=== PATIENT | male | born 1950 | race Caucasian/White ===

== ENCOUNTER 2016-06-05 17:55 | Emergency (ER) | payer MEDICARE, BC ==
[2016-06-05] MEDS ORDERED: Sodium Chloride 0.9% 10 ML Syringe FLUSH PRN (18:54)
[2016-06-05] MEDS ORDERED: HYDROmorphone 1 MG/ML Syringe IVPUSH ONE ×2 (18:54→20:06)
--- NOTE | 2016-06-05 19:14 | EDM.PDOC ---
ED HPI LOWER BACK PAIN/INJURY - General Chief Complaint: Back Pain or Injury Stated Complaint: BACK PAIN Time Seen by Provider: 06/05/16 18:46 Source of Information: Reports: Patient History Limitations: Reports: No limitations - History of Present Illness INITIAL COMMENTS - FREE TEXT/NARRATIVE: The patient presents with low back pain. He has a history of 4 back surgeries. He fell on Thursday and hurt his back. He has numbness in his legs but that is chronic. There is no more numbness. He took 10mg of hydrocodone before arrival. He has no bowel or bladder problems and he is not numb in the groin area. Timing/Duration: Reports: Day(s): (2) Location: Reports: lower Quality: Reports: Sharp Severity: severe Place of Occurrence: home Improves with: Reports: None Worsens with: Reports: None Context: Reports: fall Associated Symptoms: Reports: Denies symptoms - Related Data Allergies/ADRs: Allergies Allergy/AdvReac Type Severity Reaction Status Date / Time adhesive tape Allergy Other Verified 06/05/16 20:48 latex Allergy Cannot Verified 06/05/16 20:48 Remember Home Meds: Home Meds Aspirin [Di Chewable Aspirin] 162 mg PO DAILY 10/06/13 [History] DULoxetine [Cymbalta] 90 mg PO DAILY 10/06/13 [History] Dutasteride/Tamsulosin HCl [Shabnam 0.5-0.4 MG] 1 each PO DAILY 10/06/13 [History] Eszopiclone [Lunesta] 3 mg PO BEDTIME 10/06/13 [History] Fluticasone/Salmeterol [Advair 500-50] 1 puff INH BID 10/06/13 [History] Furosemide [Lasix] 80 mg PO BID 10/06/13 [History] Gabapentin [Neurontin] 600 mg PO BID 10/06/13 [History] Isosorbide Mononitrate [Imdur] 60 mg PO BEDTIME 10/06/13 [History] Levothyroxine [Levothroid] 300 mcg PO DAILY 10/06/13 [History] Nitroglycerin [Nitrostat] 0.4 mg SL ASDIRECTED PRN 10/06/13 [History] Omeprazole 20 mg PO BID 10/06/13 [History] Potassium Chloride [Klor-Con] 20 meq PO BID 10/06/13 [History] Triamcinolone Acetonide [Nasacort AQ [place]] 2 spray EDA BID PRN 10/06/13 [ History] Vitamin B Complex [B Complex] 1 each PO BID 10/06/13 [History] amLODIPine [Norvasc] 10 mg PO BEDTIME 10/06/13 [History] Losartan [Cozaar] 100 mg PO DAILY 08/24/14 [History] atorvaSTATin [Lipitor] 20 mg PO DAILY 11/17/14 [History] Doxazosin [Cardura] 4 mg PO DAILY 05/16/15 [History] Finasteride [Proscar] 5 mg PO DAILY 05/16/15 [History] Nebivolol HCl [Bystolic] 20 mg PO BEDTIME 05/16/15 [History] Oxybutynin Chloride [Ditropan Xl] 5 mg PO BID 05/16/15 [History] Suvorexant [Belsomra] 20 mg PO BEDTIME PRN 05/16/15 [History] Tamsulosin [Flomax] 0.4 mg PO DAILY 05/16/15 [History] oxyCODONE HCl/Acetaminophen [Percocet 10-325 mg Tablet] 1 each PO Q4HR PRN 05/15 [History] Past Medical History Other HEENT History: hearing loss, R eye surgery, glasses Cardiovascular History: Reports: Angina, CAD, High cholesterol, Hypertension Other Cardiovascular History: diastolic dysfunction, lower extremity edema Respiratory History: Reports: COPD, Sleep apnea Other Respiratory History: L lung nodule, dypsnea on exertion Gastrointestinal History: Reports: Helicobacter pylori Other Genitourinary History: kidney neoplasm, uric acid nephrolithiasis, nephrectomy Musculoskeletal History: Reports: Back pain, chronic, Osteoarthritis Other Musculoskeletal History: spinal stenosis, shoulder apin, myofasical pain, knee pain, laminectomy, stimulator implanted Other Neuro History: essential tremor Endocrine/Metabolic History: Reports: Hypothyroidism, Obesity/BMI 30+ Other Oncologic History: kidney cancer and thyroid cancer - Past Surgical History Other HEENT Surgeries/Procedures: "food gettins stuck in throat" GI Surgical History: Reports: Appendectomy, Colonoscopy, EGD Endocrine Surgical History: Reports: Thyroidectomy Social & Family History - Tobacco Use Smoking Status *Q: Current Every Day Smoker Years of Tobacco use: 55 Packs/Tins Daily: 1 Used Tobacco, but Quit: No Second Hand Smoke Exposure: No - Caffeine Use Caffeine Use: Reports: Coffee, Soda - Alcohol Use Days Per Week of Alcohol Use: 0 - Recreational Drug Use Recreational Drug Use: No Drug Use in Last 12 Months: No - Living Situation & Occupation Living situation: Reports: Occupation: employed ED ROS GENERAL - Review of Systems Review Of Systems: See Below Constitutional: Reports: no symptoms HEENT: Reports: No symptoms Respiratory: Reports: No Symptoms Cardiovascular: Reports: No symptoms Endocrine: Reports: no symptoms GI/Abdominal: Reports: No symptoms : Reports: no symptoms Musculoskeletal: Reports: back pain (Low back pain) ED EXAM,LOWER BACK PAIN/INJURY - Physical Exam Exam: See Below Exam Limited By: No limitations General Appearance: alert, no apparent distress Ears: normal external exam Nose: normal inspection Head: atraumatic, normocephalic Neck: normal inspection Respiratory/Chest: no respiratory distress, lungs clear, normal breath sounds Cardiovascular: regular rate, rhythm, no edema, no murmur GI/Abdominal: soft, non tender, no organomegaly Extremities: other (Moderate pain upon palpation to both sides of his back) Neurological: alert, no motor/sensory deficits, oriented x 3 Course - Vital Signs Last Recorded V/S: Last Vital Signs Temp 98.5 F 06/05/16 18:17 Pulse 53 L 06/05/16 18:17 Resp 18 06/05/16 18:17 BP 136/64 06/05/16 18:17 Pulse Ox 98 06/05/16 18:17 - Orders/Labs/Meds Orders: Active Orders 24 hr Category Date Time Status Peripheral IV Care [RC] . DIRECTED Care 06/05/16 18:54 Active Lumbar Spine 2 or 3V [CR] Stat Exams 06/05/16 18:55 Taken Sodium Chloride 0.9% [Saline Flush] Med 06/05/16 18:54 Active 10 ml FLUSH ASDIRECTED PRN Peripheral IV Insertion Adult [OM.PC] Routine Oth 06/05/16 18:54 Ordered Medication Orders Sodium Chloride (Saline Flush) 10 ml FLUSH ASDIRECTED PRN PRN Reason: Keep Vein Open Last Admin: 06/05/16 19:25 Dose: 10 ml Meds: Medications Generic Name Dose Route Start Last Admin Trade Name Freq PRN Reason Stop Dose Admin Sodium Chloride 10 ml 06/05/16 18:54 06/05/16 19:25 Saline Flush FLUSH 10 ml ASDIRECTED PRN Administration Keep Vein Open Discontinued Medications Generic Name Dose Route Start Last Admin Trade Name Mindi PRN Reason Stop Dose Admin Diazepam 5 mg 06/05/16 18:55 06/05/16 19:19 Valium IVPUSH 06/05/16 18:56 5 mg ONETIME ONE Administration Hydromorphone HCl 1 mg 06/05/16 18:54 06/05/16 19:27 Dilaudid IVPUSH 06/05/16 18:55 1 mg ONETIME ONE Administration Hydromorphone HCl 1 mg 06/05/16 20:06 06/05/16 20:24 Dilaudid IVPUSH 06/05/16 20:07 1 mg ONETIME ONE Administration Ketorolac Tromethamine 30 mg 06/05/16 20:06 06/05/16 20:22 Toradol IVPUSH 06/05/16 20:07 30 mg ONETIME ONE Administration - Re-Assessments/Exams Free Text/Narrative Re-Assessment/Exam: 06/05/16 19:15 I ordered an IV saline lock, dilaudid 1mg IV and valium 5mg IV. 06/05/16 20:54 His x-ray shows moderate to severe degenerative changes. TENS unit and screws and clips from prior surgeries. There is nothing new seen. He had more pain so I ordered more dilaudid and some toradol IV and he is feeling better now and ready to go. Departure - Departure Time of Disposition: 20:55 Disposition: Home, Self-Care 01 Condition: good Clinical Impression: Fall Qualifiers: Encounter type: initial encounter Qualified Code(s): W19.XXXA - Unspecified fall, initial encounter Low back pain Qualifiers: Chronicity: acute Back pain laterality: bilateral Sciatica presence: without sciatica Qualified Code(s): M54.5 - Low back pain Referrals: Candi Mancini MD [Primary Care Provider] - Forms: ED Department Discharge Additional Instructions: Take your medication as prescribed and please return if you are worse. - My Orders Last 24 Hours: My Active Orders 06/05/16 18:54 Peripheral IV Care [RC] . DIRECTED Sodium Chloride 0.9% [Saline Flush] 10 ml FLUSH ASDIRECTED PRN Peripheral IV Insertion Adult [OM.PC] Routine 06/05/16 18:55 Lumbar Spine 2 or 3V [CR] Stat - Assessment/Plan Last 24 Hours: My Active Orders 06/05/16 18:54 Peripheral IV Care [RC] . DIRECTED Sodium Chloride 0.9% [Saline Flush] 10 ml FLUSH ASDIRECTED PRN Peripheral IV Insertion Adult [OM.PC] Routine 06/05/16 18:55 Lumbar Spine 2 or 3V [CR] Stat
[2016-06-05] MEDS ORDERED: Ketorolac 30 MG/ML SDV IVPUSH ONE (20:06)
[2016-06-05 21:11] VITALS: BP 125/85
--- NOTE | 2016-06-06 09:59 | CR ---
Lumbar spine: AP, lateral and cone down lateral views centered to the lumbosacral junction were obtained. Comparison: No previous x-ray, previous CT lumbar spine exam of 09/04/11 is available. Findings: Severe disc space narrowing noted at L1-L2 and L2-L3. Lesser disc space narrowing at L3-L4 and L5-S1. Transpedicle screws are identified at L4-L5 which are stable from prior exam. Vacuum phenomena noted within the L1-L2 and L2-L3 discs. Mild retrolisthesis noted at L1-L2 and L2-L3 compatible with degenerative apophyseal changes. These findings are seen on CT exam. Mild anterior wedging noted of T12, L1 and L2 which appear to be chronic. Scattered endplate osteophytes noted. Previous laminectomy noted within L3 and L4. Mild scoliosis is noted. Electrostimulating device is seen within the thoracic spine. Scattered surgical clips noted within the abdomen. Impression: 1. Degenerative change and scoliosis, previous surgery. 2. Nothing acute seen on lumbar spine study. Findings are stable from previous exam of 09/04/11 with the exception of placement of electrostimulating device. Diagnostic code #2
== END 2016-06-05 21:00 | disposition home or self-care (01) ==
LOC: JD.ED 17:55
DX: M54.5 Low back pain (principal); W19.XXXA Unspecified fall, initial encounter; I25.10 Atherosclerotic heart disease of native coronary artery without angina pectoris; I11.0 Hypertensive heart disease with heart failure; I50.30 Unspecified diastolic (congestive) heart failure; E78.00 Pure hypercholesterolemia, unspecified; J44.9 Chronic obstructive pulmonary disease, unspecified; G47.30 Sleep apnea, unspecified; R91.1 Solitary pulmonary nodule; Z90.5 Acquired absence of kidney; M19.90 Unspecified osteoarthritis, unspecified site; G89.29 Other chronic pain; G25.0 Essential tremor; E03.9 Hypothyroidism, unspecified; E66.9 Obesity, unspecified; Z68.30 Body mass index [BMI] 30.0-30.9, adult; Z85.528 Personal history of other malignant neoplasm of kidney; Z85.850 Personal history of malignant neoplasm of thyroid; F17.200 Nicotine dependence, unspecified, uncomplicated
CPT/HCPCS: 72100; 96374; 96375; 96376; 99283; J1170; J1885; J3360; J7050; 99284

== ENCOUNTER 2016-08-14 03:12 | Emergency (ER) | payer MEDICARE, BC ==
[2016-08-14] MEDS ORDERED: Albuterol/Ipratropium 3.0-0.5 MG/3 ML Neb Soln NEB ONE (03:27)
[2016-08-14] MEDS ORDERED: Albuterol/Ipratropium 3.0-0.5 MG/3 ML Neb Soln ONE (03:29)
--- NOTE | 2016-08-14 03:29 | EDM.PDOC ---
ED HPI GENERAL MEDICAL PROBLEM - General Chief Complaint: Respiratory Problem Stated Complaint: SOB CHILLS Time Seen by Provider: 08/14/16 03:24 Source of Information: Reports: Patient, Family (spouse) History Limitations: Reports: Respiratory Distress - History of Present Illness INITIAL COMMENTS - FREE TEXT/NARRATIVE: 66-year-old male brought to the ED by his . He was so weak and so short of breath that he could not get out of the vehicle on his own or with her health. Nurses aid him out of the vehicle and into a wheelchair. Patient apparently was fine when he went to bed. He uses a CPAP machine at nighttime and oxygen during the day at 2 L per minute for COPD. He awoke with severe rigors chills and increased shortness of breath. On exam he is mildly febrile and definitely experiencing rigors. Does have a productive sounding cough but he did not know apparently when he went to bed. History of coronary disease with a stent placed 3 years ago and remains on Plavix says his .. History of benign prostatic hypertrophy and is on 3 meds for his prostate as well as hypertension. Denies any dysuria urgency or frequency. Not coughing up much sputum at this time. No hemoptysis .No recent infections requiring antibiotic or steroids. Onset: Sudden Onset Date: 08/14/16 Onset Time: 02:30 Duration: Minutes:, Getting Worse Location: Reports: Chest (Acute onset of paroxysmal cough and are associated riders. Associated dyspnea) Quality: Reports: Ache, Other Severity: Severe (Respiratory distress) Improves with: Reports: None, Other (Albuterol treatment at home did not help) Worsens with: Reports: Breathing, Movement Context: Denies: Activity, Exercise, Lifting, Sick Contact, Trauma Associated Symptoms: Reports: Cough, cough w sputum, Fever/Chills, Malaise, Shortness of Breath (Are likely due to COPD. Is on oxygen at 2 L per minute by nasal cannula at all times), Weakness. Denies: No Other Symptoms, Confusion, Chest Pain, Diaphoresis, Headaches (With riders at present time), Loss of Appetite Treatments [employer]: Reports: Other (see below) (None.) - Related Data Allergies Allergy/AdvReac Type Severity Reaction Status Date / Time adhesive tape Allergy Other Verified 08/14/16 03:35 latex Allergy Cannot Verified 08/14/16 03:35 Remember Home Meds: Home Meds Aspirin [Di Chewable Aspirin] 81 mg PO DAILY 10/06/13 [History] DULoxetine [Cymbalta] 90 mg PO DAILY 10/06/13 [History] Dutasteride/Tamsulosin HCl [Shabnam 0.5-0.4 MG] 1 each PO DAILY 10/06/13 [History] Fluticasone/Salmeterol [Advair 500-50] 1 puff INH BID 10/06/13 [History] Furosemide [Lasix] 80 mg PO BID 10/06/13 [History] Gabapentin [Neurontin] 300 mg PO BID 10/06/13 [History] Isosorbide Mononitrate [Imdur] 60 mg PO BEDTIME 10/06/13 [History] Levothyroxine [Levothroid] 300 mcg PO DAILY 10/06/13 [History] Nitroglycerin [Nitrostat] 0.4 mg SL ASDIRECTED PRN 10/06/13 [History] Omeprazole 20 mg PO BID 10/06/13 [History] Potassium Chloride [Klor-Con] 20 meq PO BID 10/06/13 [History] Triamcinolone Acetonide [Nasacort AQ [place]] 2 spray EDA BID PRN 10/06/13 [ History] Vitamin B Complex [B Complex] 1 each PO BEDTIME 10/06/13 [History] amLODIPine [Norvasc] 10 mg PO BEDTIME 10/06/13 [History] Losartan [Cozaar] 100 mg PO DAILY 08/24/14 [History] atorvaSTATin [Lipitor] 20 mg PO DAILY 11/17/14 [History] Doxazosin [Cardura] 4 mg PO DAILY 05/16/15 [History] Finasteride [Proscar] 5 mg PO DAILY 05/16/15 [History] Nebivolol HCl [Bystolic] 20 mg PO DAILY 05/16/15 [History] Oxybutynin Chloride [Ditropan Xl] 5 mg PO BID 05/16/15 [History] Suvorexant [Belsomra] 20 mg PO BEDTIME PRN 05/16/15 [History] Tamsulosin [Flomax] 0.4 mg PO DAILY 05/16/15 [History] oxyCODONE HCl/Acetaminophen [Percocet 10-325 mg Tablet] 1 each PO Q4HR PRN 05/15 [History] Past Medical History Other HEENT History: hearing loss, R eye surgery, glasses Cardiovascular History: Reports: Angina, CAD, Heart Failure, High Cholesterol, Hypertension, Stents (One stent placed about 3 years ago.) Other Cardiovascular History: diastolic dysfunction, lower extremity edema Respiratory History: Reports: COPD (severe.), Pneumonia, Recurrent, Sleep Apnea (uses CPAP at hs.) Other Respiratory History: L lung nodule, dypsnea on exertion Gastrointestinal History: Reports: Helicobacter Pylori Genitourinary History: Reports: BPH, Other (See Below) (renal insufficiency.) Other Genitourinary History: kidney neoplasm, uric acid nephrolithiasis, nephrectomy Musculoskeletal History: Reports: Back Pain, Chronic, Osteoarthritis Other Musculoskeletal History: spinal stenosis, shoulder apin, myofasical pain, knee pain, laminectomy, stimulator implanted Other Neuro History: essential tremor Psychiatric History: Reports: Other (See Below) (chronic severe insomnia.) Endocrine/Metabolic History: Reports: Hypothyroidism, Obesity/BMI 30+ Other Oncologic History: kidney cancer and thyroid cancer - Past Surgical History Other HEENT Surgeries/Procedures: "food gettins stuck in throat" GI Surgical History: Reports: Appendectomy, Colonoscopy, EGD Endocrine Surgical History: Reports: Thyroidectomy Social & Family History - Tobacco Use Smoking Status *Q: Current Every Day Smoker Years of Tobacco use: 55 Packs/Tins Daily: 1 Used Tobacco, but Quit: No Second Hand Smoke Exposure: No - Caffeine Use Caffeine Use: Reports: Coffee, Soda - Alcohol Use Days Per Week of Alcohol Use: 0 - Recreational Drug Use Recreational Drug Use: No Drug Use in Last 12 Months: No - Living Situation & Occupation Living situation: Reports: Occupation: Employed [employer] [facility] [employer] - Review of Systems Review Of Systems: See Below Constitutional: Reports: Fever, Chills, Malaise, Weakness, Fatigue, Diaphoresis HEENT: Reports: Glasses. Denies: Sinus Problem Respiratory: Reports: Shortness of Breath, Wheezing, Cough, Sputum. Denies: Pleuritic Chest Pain, Hemoptysis Cardiovascular: Reports: Blood Pressure Problem, Dyspnea on Exertion ( Chronically.). Denies: Palpitations Endocrine: Reports: Fatigue GI/Abdominal: Reports: Constipation (Occasional problems with constipation) : Reports: Frequency, Other (Nocturia usually x2) Musculoskeletal: Reports: Back Pain, Joint Pain (Knees and hips at times) Skin: Reports: No Symptoms Neurological: Reports: No Symptoms Psychiatric: Reports: No Symptoms Hematologic/Lymphatic: Reports: No Symptoms Immunologic: Reports: No Symptoms ED EXAM, GENERAL - Physical Exam Exam: See Below Exam Limited By: Respiratory Distress (Acutely ill and febrile on exam. Marked respiratory distress. Sats only 77% on room air.) General Appearance: Moderate Distress, Other (Warm to palpation) Eye Exam: Bilateral Eye: Normal Inspection Ears: Normal TMs Throat/Mouth: Normal Inspection, Normal Oropharynx, Normal Voice. No: Normal Teeth Head: Atraumatic, Normocephalic Neck: Normal Inspection, Supple, Non-Tender. No: Full Range of Motion, Carotid Bruit, Lymphadenopathy (L), Lymphadenopathy (R) Respiratory/Chest: Respiratory Distress (Marked respiratory distress.), Decreased Breath Sounds, Rales, Rhonchi (To the bases bilaterally.), Wheezing ( The right lung field anteriorly and posteriorly intermittent wheezing bilaterally. ), Accessory Muscle Use, Prolonged Expiration. No: Stridor ( Questionable overall base of the right lung.), Pleural Rub, Retractions (Mild.) , Splinting Cardiovascular: No Gallop, No Murmur, No Rub, Tachycardia. No: Normal Peripheral Pulses, JVD Peripheral Pulses: 1+: Posterior Tibial (L), Posterior Tibial (R), Dorsalis Pedis (L), Dorsalis Pedis (R) GI/Abdominal: Normal Bowel Sounds, Soft, Non-Tender, No Organomegaly Back Exam: Normal Inspection, Full Range of Motion. No: CVA Tenderness (L), CVA Tenderness (R) Extremities: Pedal Edema (1+ pitting edema both lower extremities.) Neurological: Alert, Oriented, CN II-XII Intact, Normal Cognition. No: Normal Gait (Cannot walk. Require help of the vehicle to get into the D.) Psychiatric: Flat Affect Skin Exam: Normal Color, Other (Warm to palpation.) EKG INTERPRETATION EKG Date: 08/14/16 Time: 03:40 Rhythm: a-fib (with controlled rate of 66-90/min.) Rate (beats/min): 75 [place]: normal P-wave: absent QRS: other (Q-wave in lead 3 a near Q-wave in aVF. Possible old inferior myocardial infarction. Decreased voltage throughout the limb leads.) QT: prolonged (At 435) Course - Vital Signs Last Recorded V/S: Last Vital Signs Temp 37.3 C 08/14/16 04:02 Pulse 71 08/14/16 03:15 Resp 30 H 08/14/16 03:15 BP 157/129 H 08/14/16 03:15 Pulse Ox 94 L 08/14/16 03:32 - Orders/Labs/Meds Orders: Active Orders 24 hr Category Date Time Status EKG Documentation Completion [RC] STAT Care 08/14/16 03:24 Active Nascimento Catheter Insertion [Insert Urinary Catheter] [OM. Care 08/14/16 04:15 Ordered PC] Q24H Oxygen Therapy [RC] ASDIRECTED Care 08/14/16 03:25 Active Peripheral IV Care [RC] . DIRECTED Care 08/14/16 03:47 Active RT Aerosol Therapy [RC] ASDIRECTED Care 08/14/16 03:28 Active Urinary Catheter Assessment [RC] ASDIRECTED Care 08/14/16 04:14 Active Chest 1V Frontal [CR] Stat Exams 08/14/16 03:24 Taken CULTURE BLOOD [BC] Stat Lab 08/14/16 03:50 Received CULTURE BLOOD [BC] Stat Lab 08/14/16 04:04 Received CULTURE SPUTUM + SMEAR [RM] Stat Lab 08/14/16 03:55 Results Norepinephrine [Levophed] 4 mg Med 08/14/16 05:30 Active Dextrose 5% in Water 246 ml IV TITRATE Sodium Chloride 0.9% [Saline Flush] Med 08/14/16 03:46 Active 10 ml FLUSH ASDIRECTED PRN BiPAP [RESPCARE] Urgent Oth 08/14/16 04:20 Active Blood Culture x2 Reflex Set [OM.PC] Stat Oth 08/14/16 03:26 Ordered Peripheral IV Insertion Adult [OM.PC] Stat Oth 08/14/16 03:47 Ordered Medication Orders Norepinephrine Bitartrate 4 mg (/ Dextrose/Water) 250 mls @ 7.5 mls/hr IV TITRATE BLAYNE; 2 MCG/MIN PRN Reason: Protocol Last Titration: 08/14/16 06:16 Dose: 8 mcg/min, 30 mls/hr Titration: 08/14/16 06:13 Dose: 6 mcg/min, 22.5 mls/hr Admin: 08/14/16 06:03 Dose: 3 mcg/min, 11.25 mls/hr Sodium Chloride (Saline Flush) 10 ml FLUSH ASDIRECTED PRN PRN Reason: Keep Vein Open Last Admin: 08/14/16 04:28 Dose: 10 ml Admin: 08/14/16 04:02 Dose: 10 ml Labs: Laboratory Tests 08/14/16 08/14/16 08/14/16 Range/Units 03:25 03:25 03:25 WBC 15.02 H (4.23-9.07) K/mm3 RBC 4.91 (4.63-6.08) M/mm3 Hgb 14.7 (13.7-17.5) gm/L Hct 43.4 (40.1-51.0) % MCV 88.4 (79.0-92.2) fl MCH 29.9 (25.7-32.2) pg MCHC 33.9 (32.2-35.5) g/dl RDW Std Deviation 43.8 (35.1-43.9) fL Plt Count 189 (163-337) K/mm3 MPV 10.2 (9.4-12.3) fl Neutrophils % (Manual) 87 H (40-60) % Band Neutrophils % 2 (0-10) % Lymphocytes % (Manual) 11 L (20-40) % Atypical Lymphs % 0 % Monocytes % (Manual) 0 L (2-10) % Eosinophils % (Manual) 0 L (0.8-7.0) % Basophils % (Manual) 0 L (0.2-1.2) Platelet Estimate Adequate RBC Morph Comment Normal PT 10.7 (8.0-13.0) SECONDS INR 0.98 Puncture Site ABG pH (7.35-7.45) ABG pCO2 (35.0-45.0) mmHg ABG pO2 (80.0-100.0) mmHg ABG HCO3 (22.0-26.0) meq/L ABG O2 Saturation (96.0-97.0) % ABG Base Excess (-2-2.0) Maikel Test A-a Gradient mmHg O2 Delivery Device Oxygen Flow Rate FiO2 (21.00-100.00) % Sodium 140 (136-145) mEq/L Potassium 3.8 (3.5-5.1) mEq/L Chloride 104 (98-107) mEq/L Carbon Dioxide 26 (21-32) mEq/L Anion Gap 13.8 (5-15) BUN 10 (7-18) mg/dL Creatinine 1.4 H (0.7-1.3) mg/dL Est Cr Clr Drug Dosing 59.53 mL/min Estimated GFR (MDRD) 51 (>60) mL/min BUN/Creatinine Ratio 7.1 L (14-18) Glucose 115 (80-115) mg/dL Lactic Acid (0.4-2.0) mmol/L Calcium 8.9 (8.5-10.1) mg/dL Magnesium 1.2 L (1.8-2.4) mg/dl Total Bilirubin 0.5 (0.2-1.0) mg/dL AST 14 L (15-37) U/L ALT 18 (16-63) U/L Alkaline Phosphatase 107 (46-116) U/L CK-MB (CK-2) 1.5 (0-3.6) ng/ml Troponin I < 0.017 (0.00-0.056) ng/mL C-Reactive Protein 1.0 (<1.0) mg/dL B-Natriuretic Peptide (0-100) pg/mL Total Protein 6.4 (6.4-8.2) g/dl Albumin 2.8 L (3.4-5.0) g/dl Globulin 3.6 gm/dL Albumin/Globulin Ratio 0.8 L (1-2) Urine Color (Yellow) Urine Appearance (Clear) Urine pH (5.0-8.0) Ur Specific [place] (1.005-1.030) Urine Protein (Negative) Urine Glucose (UA) (Negative) Urine Ketones (Negative) Urine Occult Blood (Negative) Urine Nitrite (Negative) Urine Bilirubin (Negative) Urine Urobilinogen (0.2-1.0) Ur Leukocyte Esterase (Negative) Urine RBC (0-5) /hpf Urine WBC (0-5) /hpf Ur Epithelial Cells Ur Squamous Epith Cells (0-5) /hpf Urine Bacteria (FEW) /hpf Hyaline Casts (0-5) /lpf Urine Mucus (FEW) /hpf 08/14/16 08/14/16 08/14/16 Range/Units 03:25 03:45 03:50 WBC (4.23-9.07) K/mm3 RBC (4.63-6.08) M/mm3 Hgb (13.7-17.5) gm/L Hct (40.1-51.0) % MCV (79.0-92.2) fl MCH (25.7-32.2) pg MCHC (32.2-35.5) g/dl RDW Std Deviation (35.1-43.9) fL Plt Count (163-337) K/mm3 MPV (9.4-12.3) fl Neutrophils % (Manual) (40-60) % Band Neutrophils % (0-10) % Lymphocytes % (Manual) (20-40) % Atypical Lymphs % % Monocytes % (Manual) (2-10) % Eosinophils % (Manual) (0.8-7.0) % Basophils % (Manual) (0.2-1.2) Platelet Estimate RBC Morph Comment PT (8.0-13.0) SECONDS INR Puncture Site Lt radial ABG pH 7.36 (7.35-7.45) ABG pCO2 40.5 (35.0-45.0) mmHg ABG pO2 53.0 L (80.0-100.0) mmHg ABG HCO3 22.4 (22.0-26.0) meq/L ABG O2 Saturation 88.7 L (96.0-97.0) % ABG Base Excess -2.3 L (-2-2.0) Maikel Test Positive A-a Gradient 249 mmHg O2 Delivery Device Venti mask Oxygen Flow Rate 14.0 FiO2 55.00 (21.00-100.00) % Sodium (136-145) mEq/L Potassium (3.5-5.1) mEq/L Chloride (98-107) mEq/L Carbon Dioxide (21-32) mEq/L Anion Gap (5-15) BUN (7-18) mg/dL Creatinine (0.7-1.3) mg/dL Est Cr Clr Drug Dosing mL/min Estimated GFR (MDRD) (>60) mL/min BUN/Creatinine Ratio (14-18) Glucose (80-115) mg/dL Lactic Acid 3.3 H (0.4-2.0) mmol/L Calcium (8.5-10.1) mg/dL Magnesium (1.8-2.4) mg/dl Total Bilirubin (0.2-1.0) mg/dL AST (15-37) U/L ALT (16-63) U/L Alkaline Phosphatase (46-116) U/L CK-MB (CK-2) (0-3.6) ng/ml Troponin I (0.00-0.056) ng/mL C-Reactive Protein (<1.0) mg/dL B-Natriuretic Peptide 299 H (0-100) pg/mL Total Protein (6.4-8.2) g/dl Albumin (3.4-5.0) g/dl Globulin gm/dL Albumin/Globulin Ratio (1-2) Urine Color (Yellow) Urine Appearance (Clear) Urine pH (5.0-8.0) Ur Specific [place] (1.005-1.030) Urine Protein (Negative) Urine Glucose (UA) (Negative) Urine Ketones (Negative) Urine Occult Blood (Negative) Urine Nitrite (Negative) Urine Bilirubin (Negative) Urine Urobilinogen (0.2-1.0) Ur Leukocyte Esterase (Negative) Urine RBC (0-5) /hpf Urine WBC (0-5) /hpf Ur Epithelial Cells Ur Squamous Epith Cells (0-5) /hpf Urine Bacteria (FEW) /hpf Hyaline Casts (0-5) /lpf Urine Mucus (FEW) /hpf 08/14/16 08/14/16 Range/Units 04:15 04:56 WBC (4.23-9.07) K/mm3 RBC (4.63-6.08) M/mm3 Hgb (13.7-17.5) gm/L Hct (40.1-51.0) % MCV (79.0-92.2) fl MCH (25.7-32.2) pg MCHC (32.2-35.5) g/dl RDW Std Deviation (35.1-43.9) fL Plt Count (163-337) K/mm3 MPV (9.4-12.3) fl Neutrophils % (Manual) (40-60) % Band Neutrophils % (0-10) % Lymphocytes % (Manual) (20-40) % Atypical Lymphs % % Monocytes % (Manual) (2-10) % Eosinophils % (Manual) (0.8-7.0) % Basophils % (Manual) (0.2-1.2) Platelet Estimate RBC Morph Comment PT (8.0-13.0) SECONDS INR Puncture Site Lt radial ABG pH 7.39 (7.35-7.45) ABG pCO2 39.4 (35.0-45.0) mmHg ABG pO2 57.0 L (80.0-100.0) mmHg ABG HCO3 23.1 (22.0-26.0) meq/L ABG O2 Saturation 92.5 L (96.0-97.0) % ABG Base Excess -1.2 (-2-2.0) Maikel Test A-a Gradient 341 mmHg O2 Delivery Device Bipap 12/7 Oxygen Flow Rate FiO2 50.00 (21.00-100.00) % Sodium (136-145) mEq/L Potassium (3.5-5.1) mEq/L Chloride (98-107) mEq/L Carbon Dioxide (21-32) mEq/L Anion Gap (5-15) BUN (7-18) mg/dL Creatinine (0.7-1.3) mg/dL Est Cr Clr Drug Dosing mL/min Estimated GFR (MDRD) (>60) mL/min BUN/Creatinine Ratio (14-18) Glucose (80-115) mg/dL Lactic Acid (0.4-2.0) mmol/L Calcium (8.5-10.1) mg/dL Magnesium (1.8-2.4) mg/dl Total Bilirubin (0.2-1.0) mg/dL AST (15-37) U/L ALT (16-63) U/L Alkaline Phosphatase (46-116) U/L CK-MB (CK-2) (0-3.6) ng/ml Troponin I (0.00-0.056) ng/mL C-Reactive Protein (<1.0) mg/dL B-Natriuretic Peptide (0-100) pg/mL Total Protein (6.4-8.2) g/dl Albumin (3.4-5.0) g/dl Globulin gm/dL Albumin/Globulin Ratio (1-2) Urine Color Yellow (Yellow) Urine Appearance Clear (Clear) Urine pH 5.5 (5.0-8.0) Ur Specific [place] 1.020 (1.005-1.030) Urine Protein Negative (Negative) Urine Glucose (UA) Negative (Negative) Urine Ketones Negative (Negative) Urine Occult Blood Negative (Negative) Urine Nitrite Negative (Negative) Urine Bilirubin Negative (Negative) Urine Urobilinogen 0.2 (0.2-1.0) Ur Leukocyte Esterase Negative (Negative) Urine RBC 0-5 (0-5) /hpf Urine WBC 0-5 (0-5) /hpf Ur Epithelial Cells Not Reportable Ur Squamous Epith Cells 0-5 (0-5) /hpf Urine Bacteria Moderate H (FEW) /hpf Hyaline Casts 5-10 H (0-5) /lpf Urine Mucus Few (FEW) /hpf Meds: Medications Generic Name Dose Route Start Last Admin Trade Name Freq PRN Reason Stop Dose Admin Norepinephrine Bitartrate 4 mg 250 mls @ 7.5 mls/hr 08/14/16 05:30 08/14/16 06:16 / Dextrose/Water IV 8 mcg/min TITRATE BLAYNE 30 mls/hr Protocol Titration 2 MCG/MIN Sodium Chloride 10 ml 08/14/16 03:46 08/14/16 04:28 Saline Flush FLUSH 10 ml ASDIRECTED PRN Administration Keep Vein Open Discontinued Medications Generic Name Dose Route Start Last Admin Trade Name Freq PRN Reason Stop Dose Admin Acetaminophen 975 mg 08/14/16 03:34 08/14/16 04:02 Tylenol PO 08/14/16 03:35 975 mg NOW ONE Administration Albuterol/Ipratropium 3 ml 08/14/16 03:27 08/14/16 03:32 Duoneb 3.0-0.5 Mg/3 Ml NEB 08/14/16 03:28 Not Given ONETIME ONE Albuterol/Ipratropium Confirm 08/14/16 03:29 08/14/16 03:32 Duoneb 3.0-0.5 Mg/3 Ml Administered 08/14/16 03:30 3 ml Dose Administration 3 ml .ROUTE .STK-MED ONE Etomidate 35 mg 08/14/16 05:29 Amidate IVPUSH 08/14/16 05:30 ONETIME ONE Furosemide 60 mg 08/14/16 03:46 08/14/16 03:49 Lasix IVPUSH 08/14/16 03:47 60 mg NOW ONE Administration Furosemide Confirm 08/14/16 03:48 08/14/16 04:05 Lasix Administered 08/14/16 03:49 Not Given Dose 80 mg .ROUTE .STK-MED ONE Furosemide 60 mg 08/14/16 03:45 08/14/16 03:50 Lasix IVPUSH 08/14/16 03:46 60 mg NOW ONE Administration Levofloxacin/Dextrose 750 mg/ 150 mls @ 100 mls/hr 08/14/16 03:35 08/14/16 04 :01 Premix IV 08/14/16 05:04 100 mls/hr ONETIME ONE Administration Piperacillin Sod/Tazobactam 100 mls @ 200 mls/hr 08/14/16 05:27 08/14/16 06: 21 Sod 4.5 gm/ Sodium Chloride IV 08/14/16 05:56 200 mls/hr ONETIME ONE Administration Propofol Confirm 08/14/16 05:43 Diprivan 100 Ml Administered 08/14/16 05:44 Dose 100 mls @ as directed .ROUTE .STK-MED ONE Lidocaine HCl 10 ml 08/14/16 04:14 08/14/16 04:39 Xylocaine 2% Jelly MUCMEM 08/14/16 04:15 Not Given ONETIME ONE Lidocaine HCl Confirm 08/14/16 05:21 Xylocaine 1% Administered 08/14/16 05:22 Dose 50 ml .ROUTE .STK-MED ONE Lidocaine HCl 150 ml 08/14/16 05:28 Xylocaine 1% INJECT 08/14/16 05:29 ONETIME ONE Metoclopramide HCl 10 mg 08/14/16 05:30 Reglan IVPUSH 08/14/16 05:31 ONETIME ONE Succinylcholine Chloride 150 mg 08/14/16 05:30 Quelicin IV 08/14/16 05:31 ONETIME ONE - Radiology Interpretation Free Text/Narrative:: 66-year-old male with known COPD presents to the ED with sudden onset of rigors chills and obvious dyspnea. He is fine apparently when he went to bed. Symptoms started about 0-30 hours this morning. He used albuterol via his home nebulizer with no improvement. Note he wears a CPAP machine at bedtime. He uses oxygen at 2 L per minute throughout the day. No recent changes in medications. No recent cold or cough symptoms. No recent antibiotic usage. Exam reveals rhonchi throughout the right lung andrade. He is febrile on exam. He is shaking at this time due to rigors benign abdominal examination. History of coronary disease with one stent placement 3 years ago. Marked respiratory distress. O2 sat 77% on room air. Plan Ventimask at 50%. May well require BiPAP or CPAP. DuoNeb treatment. ABGs to be done. Routine blood work to include blood cultures x2 and cardiac assessment. Chest x-ray portable. Will be given Tylenol 975 mg orally for fever relief we'll start antibiotic Levaquin 750 mg IV Unasyn his blood cultures x2 are collected. - Re-Assessments/Exams Free Text/Narrative Re-Assessment/Exam: 08/14/16 03:50 portable chest x-ray reveals bilateral infiltrates in the lower 40% of lung andrade with diffuse vascular congestion. Suspect fluid but cannot rule out pneumonia . Currently on Venturi mask at 55% or 14 L per minute. Sats are up to 92%. Awaiting blood gas report. With his chest x-ray looks and the amount of energy he is using to breathe he is likely headed for intubation. This was discussed with his him and his and they are okay with proceeding in this regard if needed. We'll give him Lasix 60 mg IV. 08/14/16 03:55 ECG reveals atrial fibrillation with a controlled rate of 66-19 per minute. Apparently he has no history of this arrhythmia. Review of his current med list does not show that he is on Plavix or any anticoagulant. A pressure is 109 on 52. Atrial fibrillation appears to be a new diagnosis. Will require some form of anticoagulation. Nascimento catheter will be placed with urometer. 08/14/16 04:01 initial white count is 15.02 differential pending hemoglobin is 14.7 hematocrit is 43.4. Coags are normal. ABG showed pH of 7.36 PCO2 of 40.5 I not retaining. PO2 was low at 53 sats 88.7% on 55% FiO2 on Venturi mask. O2 sats are currently between 90 and 92%. Will see if he plays out or improves with the Lasix. He may well tolerate CPAP since he uses it at home. 08/14/16 04:18 Chemistry shows sodium of 140 potassium 3.8 chloride 104 bicarbonate 26. Anion gap 13.8. Creatinine 1.4. EGFR is 51. Magnesium low at 1.2. Troponin is less than 0.017. CRP is only 1.0 BNP is 299. Differential reveals 87% neutrophils and 2% band cells. Condition continues to deteriorate. His blood pressure is 80/46 O2 sats are 86%. We'll place him on BiPAP starting with 12/7. If his blood pressure falls any further he will also require vasopressor support. Likely going to need intubation. Current weight is 109 kg. second IV to be started. 08/14/16 04:45 Tolerating BiPAP at settings of 12/7 mmHg. Sats are currently 92% . BP improved to 96/52. Mean arterial pressure 66. Repeat blood gases are to be done at 0500 hours. 08/14/16 05:00 his O2 sats continued to fall into the upper 80s ED T8-T9 and therefore FiO2 was increased to 70%. Current O2 sats are 92%. BP is 93/ 56 08/14/16 05:18 second set of blood gases reveal a pH of 7.39 PCO2 is 39.4 essentially unchanged PO2 is only 57. Patient has continued to get weaker. More confused BP is now 90 systolic. He is going to need Levophed vasopressor support. I therefore going to go ahead with intubation with plans to send him to [facility] for acute care. Initial lactic acid is elevated at 3.3. 08/14/16 05:30 intubated on first attempt with a #8 Vietnamese ET tube at 24 cm record her blood. Tube secured. Chest x-ray confirms adequate position. CO2 monitor confirms placed through the right naris and x-ray is difficult to ascertain where the end of the tube is. Appears to be in the midline and is felt to be in the stomach although it possibly could occur lip the gastroesophageal junction. He was intubated with the aid of lidocaine 150 mg etomidate 35 mg and succinylcholine 150 mg. Subsequent to paralyze with vecuronium 11 mg IV. He is currently on propofol drip at 75 mg per hour. We will fed drip currently running at 4 mcg per minute. 08/14/16 06:[address] Clark geek squad manager at [facility] in [facility] [phone]. He has agreed to accept this patient in transfer port. Patient be sent to that institution for air ambulance or helicopter service.he will be a direct admit to the intensive care unit. .Nasogastric tube was not felt to be in the appropriate position on chest x-ray it was therefore removed. Patient does not have that much abdominal distention or tympany to percussion. Blood pressure required increased dose of levophed up to 8 mcg per minutes. 08/14/16 06:41 blood pressure at the time of discharge was 128/68. He remains on 8 mcg per minute of Levophed. The paramedics will titrate this medication as needed. Departure - Departure Time of Disposition: 06:42 Disposition: DC/Tfer to Acute Hospital 02 Condition: critical Clinical Impression: Sepsis associated hypotension, Hypomagnesemia Bilateral pneumonia Qualifiers: Pneumonia type: due to unspecified organism Lung location: lower lobe of lung Qualified Code(s): J18.9 - Pneumonia, unspecified organism COPD (chronic obstructive pulmonary disease) with emphysema Qualifiers: Emphysema type: other Qualified Code(s): J43.8 - Other emphysema Congestive heart failure Qualifiers: Congestive heart failure type: diastolic Congestive heart failure chronicity: acute on chronic Qualified Code(s): I50.33 - Acute on chronic diastolic ( congestive) heart failure - Discharge Information Forms: ED Department Discharge Additional Instructions: Patient is usually cared for by Dr. Bach to the [place] system. Patient request transfer her to [facility] in [facility]. Patient has had previous surgery there and has records. He'll be transported by helicopter service to [facility] due to the acuity of his illness. Required intubation due to continued respiratory failure and failure to improve on 45 minutes of BiPAP. Required Levophed for blood pressure support partly due to his illness i.e. sepsis and partly due to effects of medication propofol and vecuronium. Dr. Clark has accepted care at the intensive care unit at [facility] - My Orders Last 24 Hours: My Active Orders 08/14/16 03:24 EKG Documentation Completion [RC] STAT Chest 1V Frontal [CR] Stat 08/14/16 03:25 Oxygen Therapy [RC] ASDIRECTED 08/14/16 03:26 Blood Culture x2 Reflex Set [OM.PC] Stat 08/14/16 03:28 RT Aerosol Therapy [RC] ASDIRECTED 08/14/16 03:46 Sodium Chloride 0.9% [Saline Flush] 10 ml FLUSH ASDIRECTED PRN 08/14/16 03:47 Peripheral IV Care [RC] . DIRECTED Peripheral IV Insertion Adult [OM.PC] Stat 08/14/16 03:50 CULTURE BLOOD [BC] Stat 08/14/16 03:55 CULTURE SPUTUM + SMEAR [RM] Stat 08/14/16 04:04 CULTURE BLOOD [BC] Stat 08/14/16 04:14 Urinary Catheter Assessment [RC] ASDIRECTED 08/14/16 04:15 Nascimento Catheter Insertion [Insert Urinary Catheter] [OM.PC] Q24H 08/14/16 04:20 BiPAP [RESPCARE] Urgent 08/14/16 05:30 Norepinephrine [Levophed] 4 mg Dextrose 5% in Water 246 ml IV TITRATE - Assessment/Plan Last 24 Hours: My Active Orders 08/14/16 03:24 EKG Documentation Completion [RC] STAT Chest 1V Frontal [CR] Stat 08/14/16 03:25 Oxygen Therapy [RC] ASDIRECTED 08/14/16 03:26 Blood Culture x2 Reflex Set [OM.PC] Stat 08/14/16 03:28 RT Aerosol Therapy [RC] ASDIRECTED 08/14/16 03:46 Sodium Chloride 0.9% [Saline Flush] 10 ml FLUSH ASDIRECTED PRN 08/14/16 03:47 Peripheral IV Care [RC] . DIRECTED Peripheral IV Insertion Adult [OM.PC] Stat 08/14/16 03:50 CULTURE BLOOD [BC] Stat 08/14/16 03:55 CULTURE SPUTUM + SMEAR [RM] Stat 08/14/16 04:04 CULTURE BLOOD [BC] Stat 08/14/16 04:14 Urinary Catheter Assessment [RC] ASDIRECTED 08/14/16 04:15 Nascimento Catheter Insertion [Insert Urinary Catheter] [OM.PC] Q24H 08/14/16 04:20 BiPAP [RESPCARE] Urgent 08/14/16 05:30 Norepinephrine [Levophed] 4 mg Dextrose 5% in Water 246 ml IV TITRATE
[2016-08-14 03:30] VITALS: BP 157/129
[2016-08-14] MEDS ORDERED: Acetaminophen 325 MG Tab PO ONE (03:34)
[2016-08-14] MEDS ORDERED: Levofloxacin/Dextrose 5%-Water 750 MG in Premix Bag 1 BAG IV ONE (03:35)
[2016-08-14] MEDS ORDERED: Furosemide 40 MG/4 ML VIAL IVPUSH ONE (03:46)
[2016-08-14] MEDS ORDERED: Furosemide 40 MG/4 ML VIAL ONE (03:48)
[2016-08-14] MEDS: Furosemide 40 MG/4 ML VIAL IVPUSH ONE ×2 (03:50→07:27)
[2016-08-14] MEDS: Sodium Chloride 0.9% 10 ML Syringe FLUSH PRN ×2 (04:02→04:28)
[2016-08-14] MEDS ORDERED: Lidocaine 2% Jelly 10 ML Urojet MUCMEM ONE (04:14)
[2016-08-14] MEDS ORDERED: Piperacillin/Tazobactam 4.5 GM in Sodium Chloride 0.9% 100 ML IV ONE (05:27)
[2016-08-14] MEDS ORDERED: Lidocaine 1% 10 ML MDV INJECT ONE (05:28)
[2016-08-14] MEDS ORDERED: Etomidate 2 MG/ML 20 ML SDV IVPUSH ONE ×2 (05:29→22:22)
[2016-08-14] MEDS ORDERED: Sodium Chloride 0.9% 1,000 ML IV SCH (05:30)
[2016-08-14] MEDS ORDERED: Norepinephrine 4 MG in Dextrose 5% in Water 246 ML IV SCH ×2 (05:30)
[2016-08-14] MEDS ORDERED: Succinylcholine 200 MG/10 ML MDV IV ONE (05:30)
[2016-08-14] MEDS ORDERED: Metoclopramide 10 MG/2 ML SDV IVPUSH ONE (05:30)
[2016-08-14] MEDS ORDERED: Lidocaine 1% 50 ML MDV INJECT ONE (05:37)
[2016-08-14] MEDS ORDERED: Midazolam 1 MG/ML 5 ML SDV IVPUSH ONE (05:48)
[2016-08-14] MEDS: Lidocaine 1% 50 ML MDV ONE ×2 (06:51→07:29)
[2016-08-14] MEDS ORDERED: Midazolam 1 MG/ML 2 ML SDV IVPUSH ONE (06:53)
--- NOTE | 2016-08-14 07:02 | CR ---
Chest: Portable view of the chest was obtained. Comparison: Previous chest x-ray of 03/15/12. Consolidation identified within both lung bases, worse on the right side. Central lung markings are also increased within both upper lungs. Heart is enlarged. Bony structures are grossly intact. Impression: 1. Consolidation within both lung bases. Findings suspicious for areas of pneumonia. 2. Cardiomegaly and mild pulmonary vascular congestion possibly due to superimposed mild CHF. Diagnostic code #3
--- NOTE | 2016-08-14 07:52 | CR ---
Chest: Portable view of the chest was obtained. Comparison: Previous chest x-ray of 08/14/16. Continuing increased density within both lung bases. Findings appear less dense than on prior study presumably due to differences in positioning. Heart is enlarged. Upper lobe pulmonary vascular redistribution remains. Stimulating wires are seen within the thoracic spine. Surgical clips noted within the left upper abdomen. Endotracheal tube is seen with tip lying at the level of the lower clavicles. Impression: 1. Tip of endotracheal tube at the lower level of the clavicles. 2. Continuing increased density within both lung bases as well as mild pulmonary vascular congestion. Diagnostic code #3
[2016-08-14] MEDS ORDERED: Midazolam 5 MG/ML 5 ML MDV ONE (22:22)
[2016-08-14] MEDS ORDERED: Water For Injection, Sterile 10 ML SDV ONE (22:22)
[2016-08-14] MEDS ORDERED: Succinylcholine/Normal Saline 100 MG/5 ML Syringe ONE (22:22)
== END 2016-08-14 06:35 ==
LOC: JD.ED 03:12
DX: A41.9 Sepsis, unspecified organism (principal); E83.42 Hypomagnesemia; I11.0 Hypertensive heart disease with heart failure; I50.33 Acute on chronic diastolic (congestive) heart failure; J18.9 Pneumonia, unspecified organism; J43.8 Other emphysema; I25.10 Atherosclerotic heart disease of native coronary artery without angina pectoris; E03.9 Hypothyroidism, unspecified; G47.30 Sleep apnea, unspecified; E66.9 Obesity, unspecified; Z98.890 Other specified postprocedural states; Z90.49 Acquired absence of other specified parts of digestive tract; Z91.040 Latex allergy status; Z85.850 Personal history of malignant neoplasm of thyroid; Z85.528 Personal history of other malignant neoplasm of kidney; Z90.5 Acquired absence of kidney; F17.210 Nicotine dependence, cigarettes, uncomplicated; Z79.82 Long term (current) use of aspirin; Z79.899 Other long term (current) drug therapy
CPT/HCPCS: 31500; 36415; 36600; 51702; 71010; 80053; 81001; 82553; 82803; 83605; 83735; 83880; 84484; 85025; 85610; 86140; 87040; 87070; 87205; 87804; 93005; 94660; 94664; 99291; 99292; A9270; J0330; J1940; J1956; J2250; J2543; J7030; J7040; J7050; J7060; J3490

== ENCOUNTER 2016-10-03 20:56 | Inpatient (IN) | payer MEDICARE, BC ==
[2016-10-03] MEDS ORDERED: Meperidine PF 50 MG/ML Syringe IVPUSH ONE (21:32)
[2016-10-03] MEDS ORDERED: Sodium Chloride 0.9% 100 ML IV SCH (22:45)
[2016-10-03] MEDS ORDERED: Sodium Chloride 0.9% 10 ML Syringe FLUSH ONE (22:45)
[2016-10-03] MEDS ORDERED: Iopamidol 755 Mg/ML 100 ML Bottle IVPUSH ONE ×2 (22:45→23:25)
[2016-10-03] MEDS ORDERED: Diatrizoate Meglumine/Diatrizoate Sodium 37% 120 ML Bottle PO ONE (22:46)
--- NOTE | 2016-10-03 22:59 | EDM.PDOC ---
ED HPI GENERAL MEDICAL PROBLEM - General Chief Complaint: Flank Pain Stated Complaint: [facility] Time Seen by Provider: 10/03/16 21:09 Source of Information: Reports: Patient, Family (, son), Intermediate Records, RN Notes Reviewed History Limitations: Reports: Physical Impairment (Shivering, hard of hearing) - History of Present Illness INITIAL COMMENTS - FREE TEXT/NARRATIVE: The patient and his family states that he developed a fever up to 100.5, chills , right flank pain, and increased urinary frequency around 18:00 tonight. He complains of some shortness of breath. The patient states that he has had similar symptoms in the past, when he had kidney stones. Here in the ED, the patient is noted to have a temperature of 99.8. His oxygen saturation is 8689% on room air. The patient was seen in this ED 08/14/2016, where he was intubated for respiratory failure and transferred to [facility]. The patient's states that the patient was on a ventilator for 9 days, and was eventually discharged to [facility] on 09/10/2016 for rehabilitation. The patient is not currently on antibiotics. The patient's PCP is Dr. Candi Mancini. Right Flank Pain Score (Numeric/FACES): 10 - Related Data Allergies Allergy/AdvReac Type Severity Reaction Status Date / Time adhesive tape Allergy Other Verified 10/03/16 21:01 latex Allergy Cannot Verified 10/03/16 21:01 Remember Home Meds: Home Meds Aspirin [Di Chewable Aspirin] 81 mg PO DAILY 10/06/13 [History] DULoxetine [Cymbalta] 90 mg PO DAILY 10/06/13 [History] Fluticasone/Salmeterol [Advair 500-50] 1 puff INH BID 10/06/13 [History] Gabapentin [Neurontin] 300 mg PO TID 10/06/13 [History] Levothyroxine [Levothroid] 175 mcg PO DAILY 10/06/13 [History] Nitroglycerin [Nitrostat] 0.4 mg SL ASDIRECTED PRN 10/06/13 [History] Omeprazole 20 mg PO BID 10/06/13 [History] Potassium Chloride [Klor-Con] 20 meq PO TID 10/06/13 [History] atorvaSTATin [Lipitor] 20 mg PO DAILY 11/17/14 [History] Finasteride [Proscar] 5 mg PO DAILY 05/16/15 [History] Oxybutynin Chloride [Ditropan Xl] 5 mg PO BID 05/16/15 [History] Suvorexant [Belsomra] 20 mg PO BEDTIME PRN 05/16/15 [History] Tamsulosin [Flomax] 0.4 mg PO DAILY 05/16/15 [History] oxyCODONE HCl/Acetaminophen [Percocet 10-325 mg Tablet] 1 each PO BID 05/16/15 [ History] Albuterol Sulfate [Proair Respiclick] 2 puff INH Q4H PRN 10/03/16 [History] Apixaban [Eliquis] 5 mg PO BID 10/03/16 [History] Bisacodyl 10 mg RECTAL DAILY PRN 10/03/16 [History] Carvedilol [Coreg] 3.125 mg PO BID 10/03/16 [History] Furosemide [Lasix] 80 mg PO BID 10/03/16 [History] Lactulose 20 gm PO DAILY PRN 10/03/16 [History] Sennosides/Docusate Sodium [Senna S Tablet] 2 tab PO BID 10/03/16 [History] Tiotropium Dairy [Spiriva Respimat] 2.5 mcg INH TID 10/03/16 [History] oxyCODONE ER [OxyCONTIN] 10 mg PO Q12HR 10/03/16 [History] oxyCODONE HCl/Acetaminophen [Percocet 10-325 mg Tablet] 1 tab PO BID PRN [History] Past Medical History HEENT History: Reports: Hard of Hearing Cardiovascular History: Reports: Afib (paroxysmal), CAD, High Cholesterol, Hypertension Respiratory History: Reports: COPD, Sleep Apnea (on nightly CPAP with 2L/min O2) , Other (See Below) (LLL nodule) Gastrointestinal History: Reports: Helicobacter Pylori Genitourinary History: Reports: BPH, Renal Calculus, Other (See Below) Musculoskeletal History: Reports: Back Pain, Chronic (L4/L5 spinal stenosis), Osteoarthritis Neurological History: Reports: Other (See Below) (Essential tremor. Dementia.) Endocrine/Metabolic History: Reports: Hypothyroidism, Obesity/BMI 30+ Oncologic (Cancer) History: Reports: Thyroid, Other (See Below) (Renal cell carcinoma left kidney) - Past Surgical History HEENT Surgical History: Reports: Eye Surgery (right), Tonsillectomy Cardiovascular Surgical History: Reports: Coronary Artery Stent (x 1) GI Surgical History: Reports: Appendectomy, Colonoscopy, EGD Male Surgical History: Reports: Nephrectomy (left), Vasectomy Endocrine Surgical History: Reports: Thyroidectomy Neurological Surgical History: Reports: Lumbar Spine (laminectomy), Other (See Below) (Spinal stimulator) Social & Family History - Tobacco Use Smoking Status *Q: Former Smoker Years of Tobacco use: 52 Packs/Tins Daily: 1 Month Tobacco Last Used: Quit 08/14/2016 Second Hand Smoke Exposure: No - Caffeine Use Caffeine Use: Reports: Coffee, Soda - Alcohol Use Alcohol Use History: No Days Per Week of Alcohol Use: 0 - Recreational Drug Use Recreational Drug Use: No - Living Situation & Occupation Living situation: Reports: , with Spouse, Extended Care Facility Occupation: Retired ED ROS GENERAL - Review of Systems Review Of Systems: See Below Constitutional: Reports: No Symptoms HEENT: Reports: No Symptoms Respiratory: Reports: No Symptoms Cardiovascular: Reports: No Symptoms Endocrine: Reports: No Symptoms GI/Abdominal: Reports: No Symptoms : Reports: No Symptoms Musculoskeletal: Reports: No Symptoms Skin: Reports: No Symptoms Neurological: Reports: No Symptoms Psychiatric: Reports: No Symptoms Hematologic/Lymphatic: Reports: No Symptoms Immunologic: Reports: No Symptoms ED EXAM, GENERAL - Physical Exam Exam: See Below Exam Limited By: No Limitations General Appearance: Alert, WD/WN, Mild Distress (shivering) Eye Exam: Bilateral Eye: Normal Inspection Ears: Normal External Exam, Hearing Grossly Normal Nose: Normal Inspection, No Blood Throat/Mouth: Normal Inspection, Normal Lips, No Airway Compromise Head: Atraumatic, Normocephalic Neck: Normal Inspection, Full Range of Motion Respiratory/Chest: Lungs Clear, Normal Breath Sounds, No Accessory Muscle Use, Respiratory Distress (mild). No: Crackles, Rhonchi, Wheezing Cardiovascular: Normal Peripheral Pulses, Regular Rate, Rhythm, No Gallop, No JVD, No Murmur, No Rub Peripheral Pulses: 4+: Radial (L), Radial (R) GI/Abdominal: Normal Bowel Sounds, Soft, Non-Tender, No Organomegaly, No Distention, No Abnormal Bruit, No Mass (Male) Exam: Deferred Rectal (Males) Exam: Deferred Back Exam: Normal Inspection, Full Range of Motion. No: CVA Tenderness (L), CVA Tenderness (R) Extremities: Normal Inspection, Normal Range of Motion, Normal Capillary Refill , Other (2-3+ pitting edema pretibially bilaterally, with hyperpigmentation consistent with chronic venous stasis) Neurological: Alert, Oriented, No Motor/Sensory Deficits, Other (Genaralized weakness) Psychiatric: Normal Affect Skin Exam: Warm, Dry, Intact, Normal Color, No Rash Lymphatic: No Adenopathy EKG INTERPRETATION EKG Date: 10/03/16 Time: 21:59 Rhythm: NSR Rate (Beats/Min): 97 [place]: LAD-Left [place] Deviation P-Wave: Present QRS: Normal ST-T: Normal QT: Normal Comparison: Change From Previous EKG (08/14/2016 - Cj-steve) Course - Vital Signs Last Recorded V/S: Last Vital Signs Temp 38.1 C 10/04/16 03:26 Pulse 93 10/03/16 20:57 Resp 24 H 10/03/16 20:57 BP 148/70 H 10/03/16 20:57 Pulse Ox 92 L 10/04/16 01:57 - Orders/Labs/Meds Orders: Active Orders 24 hr Category Date Time Status Admission Status [Patient Status] [ADT] Routine ADT 10/04/16 02:18 Active RT Aerosol Therapy [RC] ASDIRECTED Care 10/04/16 01:57 Active Chest 1V Frontal [CR] Stat Exams 10/03/16 21:26 Taken Chest Abdomen Pelvis w Cont [CT] Stat Exams 10/03/16 23:07 Taken CULTURE BLOOD [BC] Stat Lab 10/03/16 22:00 Received CULTURE BLOOD [BC] Stat Lab 10/03/16 22:10 Received Albuterol/Ipratropium [DuoNeb 3.0-0.5 MG/3 ML] Med 10/04/16 02:00 Active 3 ml NEB Q6HRRT methylPREDNISolone Sod Succ [Solu-MEDROL] Med 10/04/16 02:00 Active 40 mg IVPUSH Q8H Blood Culture x2 Reflex Set [OM.PC] Stat Oth 10/03/16 21:33 Ordered Medication Orders Acetaminophen (Tylenol) 650 mg PO Q4H PRN PRN Reason: Fever Last Admin: 10/04/16 03:26 Dose: 650 mg Albuterol (Proventil Neb Soln) 2.5 mg NEB Q4HRRT PRN PRN Reason: shortness of breath Albuterol/Ipratropium (Duoneb 3.0-0.5 Mg/3 Ml) 3 ml NEB Q6HRRT [facility] Last Admin: 10/04/16 02:02 Dose: 3 ml Admin: 10/04/16 02:02 Dose: 3 ml Enoxaparin Sodium (Lovenox) 40 mg SUBCUT DAILY@2100 BLAYNE Levofloxacin/Dextrose 750 mg/ (Premix) 150 mls @ 100 mls/hr IV Q24H BLAYNE Piperacillin Sod/Tazobactam (Sod 4.5 gm/ Sodium Chloride) 100 mls @ 200 mls/hr IV ONETIME ONE Stop: 10/04/16 03:59 Last Admin: 10/04/16 03:32 Dose: 200 mls/hr Piperacillin Sod/Tazobactam (Sod 4.5 gm/ Sodium Chloride) 100 mls @ 25 mls/hr IV Q8H [facility] Sodium Chloride (Normal Saline) 1,000 mls @ 100 mls/hr IV ASDIRECTED [facility] Methylprednisolone Sodium Succinate (Solu-Medrol) 40 mg IVPUSH Q8H [facility] Last Admin: 10/04/16 02:05 Dose: 40 mg Temazepam (Restoril) 7.5 mg PO BEDTIME PRN PRN Reason: Sleep Labs: Laboratory Tests 10/03/16 10/03/16 10/03/16 Range/Units 21:05 21:15 21:15 WBC 12.15 H (4.23-9.07) K/mm3 RBC 3.83 L (4.63-6.08) M/mm3 Hgb 11.6 L (13.7-17.5) gm/L Hct 35.6 L (40.1-51.0) % MCV 93.0 H (79.0-92.2) fl MCH 30.3 (25.7-32.2) pg MCHC 32.6 (32.2-35.5) g/dl RDW Std Deviation 52.4 H (35.1-43.9) fL Plt Count 200 (163-337) K/mm3 MPV 9.8 (9.4-12.3) fl Neutrophils % (Manual) 73 H (40-60) % Band Neutrophils % 3 (0-10) % Lymphocytes % (Manual) 22 (20-40) % Atypical Lymphs % 0 % Monocytes % (Manual) 2 (2-10) % Eosinophils % (Manual) 0 L (0.8-7.0) % Basophils % (Manual) 0 L (0.2-1.2) Toxic Granulation Few Platelet Estimate Adequate Plt Morphology Comment Normal Anisocytosis 2+ moderate Microcytosis 1+ slight RBC Morph Comment Not Reportable Puncture Site ABG pH (7.35-7.45) ABG pCO2 (35.0-45.0) mmHg ABG pO2 (80.0-100.0) mmHg ABG HCO3 (22.0-26.0) meq/L Maikel Test A-a Gradient mmHg O2 Delivery Device Oxygen Flow Rate FiO2 (21.00-100.00) % Sodium 135 L (136-145) mEq/L Potassium 3.7 (3.5-5.1) mEq/L Chloride 98 (98-107) mEq/L Carbon Dioxide 32 (21-32) mEq/L Anion Gap 8.7 (5-15) BUN 14 (7-18) mg/dL Creatinine 1.3 (0.7-1.3) mg/dL Est Cr Clr Drug Dosing 64.11 mL/min Estimated GFR (MDRD) 55 (>60) mL/min BUN/Creatinine Ratio 10.8 L (14-18) Glucose 101 (80-115) mg/dL Lactic Acid (0.4-2.0) mmol/L Calcium 9.2 (8.5-10.1) mg/dL Total Bilirubin 0.6 (0.2-1.0) mg/dL AST 18 (15-37) U/L ALT 22 (16-63) U/L Alkaline Phosphatase 72 (46-116) U/L Troponin I 0.030 (0.00-0.056) ng/mL B-Natriuretic Peptide (0-100) pg/mL Total Protein 6.5 (6.4-8.2) g/dl Albumin 2.8 L (3.4-5.0) g/dl Globulin 3.7 gm/dL Albumin/Globulin Ratio 0.8 L (1-2) Urine Color Light yellow (Yellow) Urine Appearance Clear (Clear) Urine pH 7.5 (5.0-8.0) Ur Specific [place] 1.015 (1.005-1.030) Urine Protein Negative (Negative) Urine Glucose (UA) Negative (Negative) Urine Ketones Negative (Negative) Urine Occult Blood Negative (Negative) Urine Nitrite Negative (Negative) Urine Bilirubin Negative (Negative) Urine Urobilinogen 0.2 (0.2-1.0) Ur Leukocyte Esterase Negative (Negative) Urine RBC Not seen (0-5) /hpf Urine WBC 0-5 (0-5) /hpf Ur Epithelial Cells 0-5 (0-5) /hpf Urine Bacteria Not seen (FEW) /hpf Urine Mucus Not seen (FEW) /hpf 10/03/16 10/03/16 10/03/16 Range/Units 21:15 22:00 22:05 WBC (4.23-9.07) K/mm3 RBC (4.63-6.08) M/mm3 Hgb (13.7-17.5) gm/L Hct (40.1-51.0) % MCV (79.0-92.2) fl MCH (25.7-32.2) pg MCHC (32.2-35.5) g/dl RDW Std Deviation (35.1-43.9) fL Plt Count (163-337) K/mm3 MPV (9.4-12.3) fl Neutrophils % (Manual) (40-60) % Band Neutrophils % (0-10) % Lymphocytes % (Manual) (20-40) % Atypical Lymphs % % Monocytes % (Manual) (2-10) % Eosinophils % (Manual) (0.8-7.0) % Basophils % (Manual) (0.2-1.2) Toxic Granulation Platelet Estimate Plt Morphology Comment Anisocytosis Microcytosis RBC Morph Comment Puncture Site Lt radial ABG pH 7.49 H (7.35-7.45) ABG pCO2 38.9 (35.0-45.0) mmHg ABG pO2 59.0 L (80.0-100.0) mmHg ABG HCO3 29.2 H (22.0-26.0) meq/L Maikel Test Positive A-a Gradient 46 mmHg O2 Delivery Device Cannula Oxygen Flow Rate 1.0 FiO2 24.00 (21.00-100.00) % Sodium (136-145) mEq/L Potassium (3.5-5.1) mEq/L Chloride (98-107) mEq/L Carbon Dioxide (21-32) mEq/L Anion Gap (5-15) BUN (7-18) mg/dL Creatinine (0.7-1.3) mg/dL Est Cr Clr Drug Dosing mL/min Estimated GFR (MDRD) (>60) mL/min BUN/Creatinine Ratio (14-18) Glucose (80-115) mg/dL Lactic Acid 1.2 (0.4-2.0) mmol/L Calcium (8.5-10.1) mg/dL Total Bilirubin (0.2-1.0) mg/dL AST (15-37) U/L ALT (16-63) U/L Alkaline Phosphatase (46-116) U/L Troponin I (0.00-0.056) ng/mL B-Natriuretic Peptide 41 (0-100) pg/mL Total Protein (6.4-8.2) g/dl Albumin (3.4-5.0) g/dl Globulin gm/dL Albumin/Globulin Ratio (1-2) Urine Color (Yellow) Urine Appearance (Clear) Urine pH (5.0-8.0) Ur Specific [place] (1.005-1.030) Urine Protein (Negative) Urine Glucose (UA) (Negative) Urine Ketones (Negative) Urine Occult Blood (Negative) Urine Nitrite (Negative) Urine Bilirubin (Negative) Urine Urobilinogen (0.2-1.0) Ur Leukocyte Esterase (Negative) Urine RBC (0-5) /hpf Urine WBC (0-5) /hpf Ur Epithelial Cells (0-5) /hpf Urine Bacteria (FEW) /hpf Urine Mucus (FEW) /hpf Meds: Medications Generic Name Dose Route Start Last Admin Trade Name Freq PRN Reason Stop Dose Admin Acetaminophen 650 mg 10/04/16 02:45 10/04/16 03:26 Tylenol PO 650 mg Q4H PRN Administration Fever Albuterol 2.5 mg 10/04/16 03:13 Proventil Neb Soln NEB Q4HRRT PRN shortness of breath Albuterol/Ipratropium 3 ml 10/04/16 02:00 10/04/16 02:02 Duoneb 3.0-0.5 Mg/3 Ml NEB 3 ml Q6HRRT BLAYNE Administration Enoxaparin Sodium 40 mg 10/04/16 03:30 Lovenox SUBCUT DAILY@2100 BLAYNE Levofloxacin/Dextrose 750 mg/ 150 mls @ 100 mls/hr 10/04/16 23:59 Premix IV Q24H BLAYNE Piperacillin Sod/Tazobactam 100 mls @ 200 mls/hr 10/04/16 03:30 10/04/16 03: 32 Sod 4.5 gm/ Sodium Chloride IV 10/04/16 03:59 200 mls/hr ONETIME ONE Administration Piperacillin Sod/Tazobactam 100 mls @ 25 mls/hr 10/04/16 11:00 Sod 4.5 gm/ Sodium Chloride IV Q8H BLAYNE Sodium Chloride 1,000 mls @ 100 mls/hr 10/04/16 03:30 Normal Saline IV ASDIRECTED BLAYNE Methylprednisolone Sodium Succinate 40 mg 10/04/16 02:00 10/04/16 02:05 Solu-Medrol IVPUSH 40 mg Q8H BLAYNE Administration Temazepam 7.5 mg 10/04/16 03:18 Restoril PO BEDTIME PRN Sleep Discontinued Medications Generic Name Dose Route Start Last Admin Trade Name Freq PRN Reason Stop Dose Admin Albuterol/Ipratropium Confirm 10/04/16 02:03 10/04/16 02:49 Duoneb 3.0-0.5 Mg/3 Ml Administered 10/04/16 02:04 Not Given Dose 3 ml .ROUTE .STK-MED ONE Diatrizoate Meglum/Diatrizoate Sod 90 ml 10/03/16 22:46 Gastrografin 37% PO 10/03/16 22:47 ONETIME ONE Sodium Chloride 100 mls @ 60 mls/hr 10/03/16 22:45 10/03/16 23:37 Normal Saline IV 60 mls/hr ASDIRECTED BLAYNE Administration Levofloxacin/Dextrose 750 mg/ 150 mls @ 100 mls/hr 10/04/16 00:20 10/04/16 01 :00 Premix IV 10/04/16 01:49 100 mls/hr ONETIME ONE Administration Sodium Chloride 1,000 mls @ 100 mls/hr 10/04/16 00:30 10/04/16 01:01 Normal Saline IV 100 mls/hr ASDIRECTED BLAYNE Administration Iopamidol 100 ml 10/03/16 22:45 10/03/16 23:36 Isovue-370 (76%) IVPUSH 10/03/16 22:46 100 ml ONETIME ONE Administration Iopamidol 100 ml 10/03/16 23:25 10/03/16 23:36 Isovue-370 (76%) IVPUSH 10/03/16 23:26 40 ml ONETIME ONE Administration Meperidine HCl 50 mg 10/03/16 21:32 10/03/16 21:42 Demerol IVPUSH 10/03/16 21:33 50 mg ONETIME ONE Administration Sodium Chloride 10 ml 10/03/16 22:45 10/03/16 23:36 Saline Flush FLUSH 10/03/16 22:46 10 ml ONETIME ONE Administration - Re-Assessments/Exams Free Text/Narrative Re-Assessment/Exam: 10/03/16 22:59 The patient's ABG represents a combined respiratory and metabolic alkalosis. 10/03/16 23:01 Portable chest radiograph reviewed. Cardiac silhouette is at the upper limits of normal. No pulmonary vascular congestion. There is increased opacity to the right upper lung field, and likely bibasilar atelectasis, left greater than right. Small pleural effusion, particularly on the left, cannot be excluded. No pneumothorax. Thoracic spinal stimulator wires noted. Formal read per the Radiologist pending. 10/04/16 00:16 CT angiogram of the chest is read by [facility] as: 1. No pulmonary thromboembolic disease. 2. Bronchopneumonia. (Lungs: Bilateral mixture of peribronchial micro-nodularity , groundglass opacity and consolidation.) CT of the abdomen and pelvis with IV contrast is read by [facility] as: Gallstones. No CT evidence for cholecystitis. Unremarkable solitary right kidney. I can't explain the patient's right flank pain. The pneumonia seen on the CT angiogram may be resolving pneumonia, nevertheless, I believe it would be prudent to treat the patient as if he has current pneumonia. I will initiate Levaquin. Blood cultures were obtained at the time of original blood draws. I will endeavor to obtain the medical records from [facility] for his 2016 admission, as, according to the family, he underwent at least 1 bronchoscopy. I would like to know what, if anything, grew from the bronchial lavage. 10/04/16 01:[address] Lui at 01:07. She accepts the patient for admission. 10/04/16 03:52 Medical records from [facility] from the patient's admission 08/14/2016 were obtained. The patient underwent bronchoscopy on 08/14/2016. Thick purulent secretions were seen in the entire right bronchial tree, which were suctioned out. A BAL sample was obtained from the opening of the RLL bronchus. Bronchial washings were also obtained, and the BAL and bronchial washings were sent for culture. The BAL culture had no growth at 48 hours, and the bronchial washings grew only normal respiratory facundo. The patient underwent repeat bronchoscopy on 08/20/2016. Thick mucus secretions were seen in both the lower lobe bronchi. BAL from the RLL bronchi was sent for culture. The BAL had no growth at 48 hours. Departure - Departure Time of Disposition: 01:32 Disposition: Admitted As Inpatient 65 Condition: Fair Clinical Impression: Bronchopneumonia - Discharge Information - My Orders Last 24 Hours: My Active Orders 10/03/16 21:26 Chest 1V Frontal [CR] Stat 10/03/16 21:33 Blood Culture x2 Reflex Set [OM.PC] Stat 10/03/16 22:00 CULTURE BLOOD [BC] Stat 10/03/16 22:10 CULTURE BLOOD [BC] Stat 10/03/16 23:07 Chest Abdomen Pelvis w Cont [CT] Stat 10/04/16 02:18 Admission Status [Patient Status] [ADT] Routine - Assessment/Plan Last 24 Hours: My Active Orders 10/03/16 21:26 Chest 1V Frontal [CR] Stat 10/03/16 21:33 Blood Culture x2 Reflex Set [OM.PC] Stat 10/03/16 22:00 CULTURE BLOOD [BC] Stat 10/03/16 22:10 CULTURE BLOOD [BC] Stat 10/03/16 23:07 Chest Abdomen Pelvis w Cont [CT] Stat 10/04/16 02:18 Admission Status [Patient Status] [ADT] Routine
[2016-10-04] MEDS ORDERED: Levofloxacin/Dextrose 5%-Water 750 MG in Premix Bag 1 BAG IV ONE (00:20)
[2016-10-04] MEDS ORDERED: Sodium Chloride 0.9% 1,000 ML IV SCH ×2 (00:30→03:30)
[2016-10-04] MEDS: Albuterol/Ipratropium 3.0-0.5 MG/3 ML Neb Soln NEB SCH ×4 (02:02→20:40)
[2016-10-04] MEDS ORDERED: Albuterol/Ipratropium 3.0-0.5 MG/3 ML Neb Soln ONE (02:03)
[2016-10-04] MEDS: methylPREDNISolone Sodium Succinate 40 MG/1 ML SDV IVPUSH SCH ×3 (02:05→18:26)
[2016-10-04] MEDS ORDERED: Acetaminophen 325 MG Tab PO PRN (02:45)
[2016-10-04] MEDS ORDERED: Albuterol 0.083% 2.5 MG/3 ML Neb Soln NEB PRN (03:13)
[2016-10-04] MEDS ORDERED: Piperacillin/Tazobactam 4.5 GM in Sodium Chloride 0.9% 100 ML IV ONE (03:30)
[2016-10-04] MEDS ORDERED: Enoxaparin 40 MG/0.4 ML Syringe SUBCUT SCH (03:30)
[2016-10-04] MEDS ORDERED: Enoxaparin 30 MG/0.3 ML Syringe SUBCUT SCH (09:00)
--- NOTE | 2016-10-04 10:15 | PCM.HP ---
H&P History of Present Illness - General Date of Service: 10/04/16 Source of Information: Patient, Family, Provider History Limitations: Reports: No Limitations - History of Present Illness Initial Comments - Free Text/Narative: 66 year old male who recently was admitted to [facility] over several weeks of treatment for bilateral pneumonia. Limited documented history is available at the time of initial evaluation. He required intubation for 9 days, and after discharge was sent to a [facility] [place]. He presented with a complaint of fever and chills in the ED, on room air, his O2 saturation was 86%. He is being admitted as an HCAP, will be started on duo antibiotics and will receive treatment for respiratory distress before transfer to [facility]. Onset of Symptoms: Reports: Sudden Symptom Onset Date: 10/03/16 Duration of Symptoms: Reports: Hour(s):, Getting Worse Location: Reports: Abdomen, Back (right flank) Quality: Reports: Same as Previous Episode Severity: Moderate Improves with: Reports: Medication Worsens with: Reports: None Associated Symptoms: Reports: Fever/Chills, Malaise, Weakness Right Flank Pain Score (Numeric/FACES): 10 Lower Back Pain Score (Numeric/FACES): 6 - Related Data Allergies/Adverse Reactions: Allergies Allergy/AdvReac Type Severity Reaction Status Date / Time adhesive tape Allergy Other Verified 10/03/16 21:01 latex Allergy Cannot Verified 10/03/16 21:01 Remember Home Medications: Home Meds Aspirin [Di Chewable Aspirin] 81 mg PO DAILY 10/06/13 [History] DULoxetine [Cymbalta] 90 mg PO DAILY 10/06/13 [History] Fluticasone/Salmeterol [Advair 500-50] 1 puff INH BID 10/06/13 [History] Gabapentin [Neurontin] 300 mg PO TID 10/06/13 [History] Levothyroxine [Levothroid] 175 mcg PO DAILY 10/06/13 [History] Nitroglycerin [Nitrostat] 0.4 mg SL ASDIRECTED PRN 10/06/13 [History] Omeprazole 20 mg PO BID 10/06/13 [History] Potassium Chloride [Klor-Con] 20 meq PO TID 10/06/13 [History] atorvaSTATin [Lipitor] 20 mg PO DAILY 11/17/14 [History] Finasteride [Proscar] 5 mg PO DAILY 05/16/15 [History] Oxybutynin Chloride [Ditropan Xl] 5 mg PO BID 05/16/15 [History] Suvorexant [Belsomra] 20 mg PO BEDTIME PRN 05/16/15 [History] Tamsulosin [Flomax] 0.4 mg PO DAILY 05/16/15 [History] oxyCODONE HCl/Acetaminophen [Percocet 10-325 mg Tablet] 1 each PO BID 05/16/15 [ History] Albuterol Sulfate [Proair Respiclick] 2 puff INH Q4H PRN 10/03/16 [History] Apixaban [Eliquis] 5 mg PO BID 10/03/16 [History] Bisacodyl 10 mg RECTAL DAILY PRN 10/03/16 [History] Carvedilol [Coreg] 3.125 mg PO BID 10/03/16 [History] Furosemide [Lasix] 80 mg PO BID 10/03/16 [History] Lactulose 20 gm PO DAILY PRN 10/03/16 [History] Sennosides/Docusate Sodium [Senna S Tablet] 2 tab PO BID 10/03/16 [History] Tiotropium [place] [Spiriva Respimat] 5 mcg INH DAILY 10/03/16 [History] oxyCODONE ER [OxyCONTIN] 10 mg PO Q12HR 10/03/16 [History] oxyCODONE HCl/Acetaminophen [Percocet 10-325 mg Tablet] 1 tab PO BID PRN [History] Past Medical History HEENT History: Reports: Hard of Hearing Other HEENT History: hearing loss, R eye surgery, glasses Cardiovascular History: Reports: Afib (paroxysmal), CAD, High Cholesterol, Hypertension Other Cardiovascular History: diastolic dysfunction, lower extremity edema Respiratory History: Reports: COPD, Sleep Apnea (on nightly CPAP with 2L/min O2) , Other (See Below) (LLL nodule) Other Respiratory History: L lung nodule, dypsnea on exertion Gastrointestinal History: Reports: Helicobacter Pylori Genitourinary History: Reports: BPH, Renal Calculus, Other (See Below) Other Genitourinary History: kidney neoplasm, uric acid nephrolithiasis, nephrectomy Musculoskeletal History: Reports: Back Pain, Chronic (L4/L5 spinal stenosis), Osteoarthritis Other Musculoskeletal History: spinal stenosis, shoulder apin, myofasical pain, knee pain, laminectomy, stimulator implanted Neurological History: Reports: Other (See Below) (Essential tremor. Dementia.) Other Neuro History: essential tremor Psychiatric History: Reports: Other (See Below) Endocrine/Metabolic History: Reports: Hypothyroidism, Obesity/BMI 30+ Oncologic (Cancer) History: Reports: Thyroid, Other (See Below) (Renal cell carcinoma left kidney) Other Oncologic History: kidney cancer and thyroid cancer - Past Surgical History HEENT Surgical History: Reports: Eye Surgery (right), Tonsillectomy Cardiovascular Surgical History: Reports: Coronary Artery Stent (x 1) GI Surgical History: Reports: Appendectomy, Colonoscopy, EGD Male Surgical History: Reports: Nephrectomy (left), Vasectomy Endocrine Surgical History: Reports: Thyroidectomy Neurological Surgical History: Reports: Lumbar Spine (laminectomy), Other (See Below) (Spinal stimulator) Social & Family History - Family History Family Medical History: Noncontributory - Tobacco Use Smoking Status *Q: Former Smoker Years of Tobacco use: 52 Packs/Tins Daily: 1 Used Tobacco, but Quit: No Month Tobacco Last Used: Quit 08/14/2016 Second Hand Smoke Exposure: No - Caffeine Use Caffeine Use: Reports: Coffee, Soda Other Caffeine Use: a couple cups coffee a day and sometimes a pop - Alcohol Use Days Per Week of Alcohol Use: 0 - Recreational Drug Use Recreational Drug Use: No Drug Use in Last 12 Months: No - Living Situation & Occupation Living situation: Reports: , with Spouse, Extended Care Facility Occupation: Retired H&P Review of Systems - Review of Systems: Review Of Systems: See Below General: Reports: Fever, Chills, Malaise, Weakness, Decreased Appetite HEENT: Reports: No Symptoms Pulmonary: Reports: Shortness of Breath Cardiovascular: Reports: No Symptoms Gastrointestinal: Reports: No Symptoms Genitourinary: Reports: Flank Pain (right) Musculoskeletal: Reports: No Symptoms Skin: Reports: No Symptoms Psychiatric: Reports: No Symptoms Neurological: Reports: No Symptoms Hematologic/Lymphatic: Reports: No Symptoms Immunologic: Reports: No Symptoms Exam - Exam Exam: See Below - Vital Signs Vital Signs: Last Vital Signs Temp 38.1 C 10/04/16 03:26 Pulse 72 10/04/16 02:41 Resp 24 H 10/03/16 20:57 BP 106/52 L 10/04/16 02:41 Pulse Ox 93 L 10/04/16 08:37 Weight: 116.8 kg - Exam Quality Assessment: DVT Prophylaxis General: Alert, Oriented HEENT: Conjunctiva Clear, Nares Patent, Normal Nasal Septum, Posterior Pharynx Clear, Pupils Equal, Pupils Reactive Neck: Supple, Trachea Midline Lungs: Normal Respiratory Effort, Decreased Breath Sounds, Wheezing Cardiovascular: Regular Rate GI/Abdominal Exam: Normal Bowel Sounds, Soft, Non-Tender, No Organomegaly (Male) Exam: Deferred Rectal (Males) Exam: Deferred Back Exam: Normal Inspection, CVA Tenderness (L) (no), CVA Tenderness (R) (no), Vertebral Tenderness (no) Extremities: Normal Inspection, Pedal Edema (2+) Neurological: Cranial Nerves Intact Neuro Extensive - Mental Status: Alert, Oriented x3, Normal Mood/Affect, Normal Cognition, Memory Intact Neuro Extensive - Motor, Sensory, Reflexes: CN II-XII Intact Psychiatric: Alert, Normal Affect, Normal Mood - Patient Data Lab Results Last 24 hrs: Laboratory Results - last 24 hr 10/04/16 10/04/16 10/04/16 Range/Units 05:40 05:40 05:40 WBC 12.74 H (4.23-9.07) K/mm3 RBC 3.73 L (4.63-6.08) M/mm3 Hgb 11.4 L (13.7-17.5) gm/L Hct 34.7 L (40.1-51.0) % MCV 93.0 H (79.0-92.2) fl MCH 30.6 (25.7-32.2) pg MCHC 32.9 (32.2-35.5) g/dl RDW Std Deviation 53.5 H (35.1-43.9) fL Plt Count 201 (163-337) K/mm3 MPV 9.8 (9.4-12.3) fl Neut % (Auto) 84.0 H (34.0-67.9) % Lymph % (Auto) 12.6 L (21.8-53.1) % [place] % (Auto) 2.0 L (5.3-12.2) % Eos % (Auto) 0 L (0.8-7.0) Baso % (Auto) 0.2 (0.1-1.2) % Neut # (Auto) 10.70 H (1.78-5.38) K/mm3 Lymph # (Auto) 1.61 (1.32-3.57) K/mm3 [place] # (Auto) 0.26 L (0.30-0.82) K/mm3 Eos # (Auto) 0.00 L (0.04-0.54) K/mm3 Baso # (Auto) 0.02 (0.01-0.08) K/mm3 Manual Slide Review Abnormal smear D-Dimer, Quantitative 0.36 (0.19-0.59) mg/L Sodium 136 (136-145) mEq/L Potassium 3.7 (3.5-5.1) mEq/L Chloride 99 (98-107) mEq/L Carbon Dioxide 28 (21-32) mEq/L Anion Gap 12.7 (5-15) BUN 13 (7-18) mg/dL Creatinine 1.1 (0.7-1.3) mg/dL Est Cr Clr Drug Dosing 75.77 mL/min Estimated GFR (MDRD) > 60 (>60) mL/min BUN/Creatinine Ratio 11.8 L (14-18) Glucose 126 H (80-115) mg/dL Calcium 8.8 (8.5-10.1) mg/dL C-Reactive Protein 6.7 H* (<1.0) mg/dL B-Natriuretic Peptide (0-100) pg/mL MRSA (PCR) 10/04/16 10/04/16 Range/Units 05:40 06:44 WBC (4.23-9.07) K/mm3 RBC (4.63-6.08) M/mm3 Hgb (13.7-17.5) gm/L Hct (40.1-51.0) % MCV (79.0-92.2) fl MCH (25.7-32.2) pg MCHC (32.2-35.5) g/dl RDW Std Deviation (35.1-43.9) fL Plt Count (163-337) K/mm3 MPV (9.4-12.3) fl Neut % (Auto) (34.0-67.9) % Lymph % (Auto) (21.8-53.1) % [place] % (Auto) (5.3-12.2) % Eos % (Auto) (0.8-7.0) Baso % (Auto) (0.1-1.2) % Neut # (Auto) (1.78-5.38) K/mm3 Lymph # (Auto) (1.32-3.57) K/mm3 [place] # (Auto) (0.30-0.82) K/mm3 Eos # (Auto) (0.04-0.54) K/mm3 Baso # (Auto) (0.01-0.08) K/mm3 Manual Slide Review D-Dimer, Quantitative (0.19-0.59) mg/L Sodium (136-145) mEq/L Potassium (3.5-5.1) mEq/L Chloride (98-107) mEq/L Carbon Dioxide (21-32) mEq/L Anion Gap (5-15) BUN (7-18) mg/dL Creatinine (0.7-1.3) mg/dL Est Cr Clr Drug Dosing mL/min Estimated GFR (MDRD) (>60) mL/min BUN/Creatinine Ratio (14-18) Glucose (80-115) mg/dL Calcium (8.5-10.1) mg/dL C-Reactive Protein (<1.0) mg/dL B-Natriuretic Peptide 90 (0-100) pg/mL MRSA (PCR) Negative Result Diagrams: 10/05/16 05:45 10/05/16 05:45 *Q Meaningful Use (ADM) - VTE *Q VTE Criteria *Q: - Stroke *Q Stroke Criteria *Q: - AMI *Q AMI Criteria *Q: - Problem List (1) Bronchopneumonia SNOMED Code(s): 539799196 ICD Code: J18.0 - BRONCHOPNEUMONIA, UNSPECIFIED ORGANISM Status: Acute Current Visit: Yes (2) Bilateral pneumonia SNOMED Code(s): 294281224 ICD Code: J18.9 - PNEUMONIA, UNSPECIFIED ORGANISM Status: Acute Current Visit: No Qualifiers: Pneumonia type: due to unspecified organism Lung location: lower lobe of lung Qualified Code(s): J18.9 - Pneumonia, unspecified organism (3) COPD (chronic obstructive pulmonary disease) with emphysema SNOMED Code(s): 39802215 ICD Code: J43.9 - EMPHYSEMA, UNSPECIFIED Status: Acute Current Visit: No Qualifiers: Emphysema type: other Qualified Code(s): J43.8 - Other emphysema (4) Congestive heart failure SNOMED Code(s): 90628863 ICD Code: I50.9 - HEART FAILURE, UNSPECIFIED Status: Acute Current Visit : No Qualifiers: Congestive heart failure type: diastolic Congestive heart failure chronicity: acute on chronic Qualified Code(s): I50.33 - Acute on chronic diastolic (congestive) heart failure Problem List Initiated/Reviewed/Updated: Yes Orders Last 24hrs: Active Orders 24 hr Category Date Time Status Patient Status [ADT] Routine ADT 10/04/16 02:40 Active Antiembolic Devices [RC] QSHIFT Care 10/04/16 03:21 Active Oxygen Therapy Adult [Oxygen Therapy] [RC] ASDIRECTED Care 10/04/16 03:15 Active Vital Signs [RC] Q6HR Care 10/04/16 06:26 Active Clear Liquid Diet [DIET] Diet 10/04/16 Breakfast Active RESPIRATORY PANEL BY PCR [MREF] Routine Lab 10/04/16 10:14 Uncollected Acetaminophen [Tylenol] Med 10/04/16 02:45 Active 650 mg PO Q4H PRN Albuterol [Proventil Neb Soln] Med 10/04/16 03:13 Active 2.5 mg NEB Q4HRRT PRN Enoxaparin [Lovenox] Med 10/04/16 09:00 Active 30 mg SUBCUT DAILY Levofloxacin/Dextrose 5%-Water [Levaquin in D5W 750 MG/ Med 10/04/16 23:59 Active 150 ML] 750 mg Premix Bag 1 bag IV Q24H Piperacillin/Tazobactam [Zosyn] 4.5 gm Med 10/04/16 11:00 Active Sodium Chloride 0.9% [Normal Saline] 100 ml IV Q8H Sodium Chloride 0.9% [Normal Saline] 1,000 ml Med 10/04/16 03:30 Active IV ASDIRECTED Temazepam [Restoril] Med 10/04/16 03:18 Active 7.5 mg PO BEDTIME PRN CPAP [RESPCARE] Routine Oth 10/04/16 03:16 Active Isolation [COMM] Routine Oth 10/04/16 10:14 Ordered RAHUL Hose [Antiembolic Hose] [OM.PC] Routine Oth 10/04/16 03:21 Ordered Resuscitation Status Routine Resus Stat 10/04/16 10:01 Ordered Medication Orders Acetaminophen (Tylenol) 650 mg PO Q4H PRN PRN Reason: Fever Last Admin: 10/04/16 03:26 Dose: 650 mg Albuterol (Proventil Neb Soln) 2.5 mg NEB Q4HRRT PRN PRN Reason: shortness of breath Albuterol/Ipratropium (Duoneb 3.0-0.5 Mg/3 Ml) 3 ml NEB Q6HRRT BLAYNE Last Admin: 10/04/16 08:28 Dose: 3 ml Admin: 10/04/16 02:02 Dose: 3 ml Admin: 10/04/16 02:02 Dose: 3 ml Enoxaparin Sodium (Lovenox) 30 mg SUBCUT DAILY BLAYNE Levofloxacin/Dextrose 750 mg/ (Premix) 150 mls @ 100 mls/hr IV Q24H BLAYNE Piperacillin Sod/Tazobactam (Sod 4.5 gm/ Sodium Chloride) 100 mls @ 25 mls/hr IV Q8H BLAYNE Sodium Chloride (Normal Saline) 1,000 mls @ 100 mls/hr IV ASDIRECTED BLAYNE Methylprednisolone Sodium Succinate (Solu-Medrol) 40 mg IVPUSH Q8H BLAYNE Last Admin: 10/04/16 02:05 Dose: 40 mg Temazepam (Restoril) 7.5 mg PO BEDTIME PRN PRN Reason: Sleep Assessment/Plan Comment:: Impression: Respiratory distress with hypoxia Presumptively treated as HCAP; hypoxia by pulse oximetry History of recent intubation for pneumonia, currently resides at SNF Chronic COPD A Fib on a NOAC FINN with CPAP HTN HLD Hypothyroidism CKD HF Chronic back discomfort, L4-L5 spinal stenosis Plan: IVF ATBs Steroids nebs Home meds Daily Labs Repeat CXR, 10/06/16 SW/PT/OT Gi/DVT prophylaxis
[2016-10-04] MEDS ORDERED: Suvorexant [Belsomra] 20 MG PO PRN (10:19)
[2016-10-04] MEDS ORDERED: Bisacodyl 10 MG Supp RECTAL PRN (10:19)
[2016-10-04] MEDS ORDERED: Nitroglycerin 0.4 MG Tab.SL SL PRN (10:19)
[2016-10-04] MEDS ORDERED: Acetaminophen/oxyCODONE 325-5 MG Tab PO PRN ×2 (10:25→16:05)
--- NOTE | 2016-10-04 10:26 | CR ---
Chest: Portable view of the chest was obtained. Comparison: Previous chest x-ray of 08/14/16. Findings: Heart size and mediastinum are within normal limits for portable technique. Vague increased density is noted within the right upper lung and right lower lung as well as within the left lung base. Lungs otherwise are clear. Epidural stimulating wires are seen within the thoracic spine. Surgical clips noted within the upper abdomen. Bony structures are grossly intact. Impression: 1. Vague areas of increased density within the right upper and within both lower lungs. Findings could represent atelectasis as well as mild areas of pneumonia. 2. Other incidental findings. Diagnostic code #3
[2016-10-04] MEDS ORDERED: Albuterol 6.7 GM Inhaler INH PRN (10:39)
[2016-10-04] MEDS ORDERED: Lactulose Soln 10 GM/15 ML 30 ML UD Cup PO PRN (10:45)
[2016-10-04] MEDS: Piperacillin/Tazobactam 4.5 GM in Sodium Chloride 0.9% 100 ML IV SCH ×2 (11:10→18:27)
--- NOTE | 2016-10-04 11:49 | CT ---
CT chest Technique: Multiple axial sections were obtained from above the lung apices inferiorly through the lung bases. Intravenous contrast was utilized. Comparison: Previous chest CT study of 05/26/12. Findings: Aorta shows no aneurysmal dilatation. No dissection is seen. Visualized pulmonary arteries show no filling defects to indicate pulmonary embolism. Atherosclerotic calcification is seen within the thoracic aorta and within the coronary arteries. No pericardial effusion is seen. Mediastinum and hilar regions show no adenopathy or mass. Small lymph nodes seen within the mediastinum believed to be incidental. Lung window setting shows increased density within the right upper chest as well as within the left lung base and right lung base. Findings likely due to combination of atelectasis as well as pneumonia. Nodule identified within the left lung base measuring 5 mm. No additional nodule is seen within the chest. Scattered degenerative change is noted within the spine. Epidural stimulating wires are seen within the thoracic spine. No acute rib abnormality is seen. Impression: 1. Pulmonary arteries show no findings of pulmonary embolism. 2. Areas of pneumonia within the right upper lung and within both lung bases. 3. Other incidental findings. Diagnostic code # CT abdomen and pelvis Technique: Multiple axial sections were obtained from above the dome of the diaphragm inferiorly through the abdomen and pelvis. Intravenous and oral contrast was utilized. Comparison: Previous CT abdomen and pelvis study of 05/02/13. Findings: Several low density lesions are identified within the liver which are believed to be stable and due to cysts. Several gallstones are seen within the gallbladder. Spleen appears within normal limits. Contrast is noted within the distal esophagus compatible with reflux. Adrenal glands show no nodule. Previous left nephrectomy is seen with surgical clips. Right kidney shows enhancement. Multiple small low density areas are seen within the right kidney believed to represent small cysts. No hydronephrosis is seen. Delayed images show contrast excretion into the right ureter with contrast seen within the bladder. Pancreas is mostly fatty replaced. Aorta shows atherosclerotic change without aneurysmal dilatation. No retroperitoneal adenopathy or mesenteric abnormalities are seen. No pelvic mass or adenopathy is seen. Bone window settings show diffuse degenerative change within the spine. Transpedicle screws are seen within L4 and L5. Impression: 1. Cysts within the liver as well as within the right kidney. 2. Previous left nephrectomy. 3. Several gallstones within the gallbladder. This represents an interval change from prior CT exam. 4. Other incidental findings. Nothing acute is identified. Diagnostic code #3 I agree with preliminary report issued by [facility] ([facility] report finalized on 10/04/16, 1:05 AM Central Time)
[2016-10-04] MEDS: Gabapentin 300 MG Cap PO SCH ×2 (15:15→21:49)
[2016-10-04] MEDS: Potassium Chloride 20 MEQ Tab.ER PO SCH ×2 (15:15→21:35)
[2016-10-04] MEDS ORDERED: Bumetanide 1 MG/4 ML MDV IVPUSH ONE (17:45)
[2016-10-04] MEDS: Acetaminophen/oxyCODONE 325-5 MG Tab PO PRN (18:26)
[2016-10-04] MEDS ORDERED: Furosemide 80 MG Tab PO SCH (21:00)
[2016-10-04] MEDS ORDERED: ADVAIR INH SCH (21:00)
[2016-10-04] MEDS: Simvastatin 20 MG Tab PO SCH (21:42)
[2016-10-04] MEDS: Carvedilol 3.125 MG Tab PO SCH (21:42)
[2016-10-04] MEDS: Apixaban 5 MG Tab PO SCH (21:42)
[2016-10-04] MEDS: oxyCODONE ER 10 MG TAB.ER PO SCH (21:43)
[2016-10-04] MEDS: Oxybutynin 5 MG Tab.ER PO SCH (21:49)
[2016-10-04] MEDS: Temazepam 7.5 MG Cap PO PRN (22:45)
[2016-10-04] MEDS: Levofloxacin/Dextrose 5%-Water 750 MG in Premix Bag 1 BAG IV SCH (22:59)
[2016-10-05] MEDS: Acetaminophen/oxyCODONE 325-5 MG Tab PO PRN ×3 (00:14→19:42)
[2016-10-05] MEDS: Albuterol/Ipratropium 3.0-0.5 MG/3 ML Neb Soln NEB SCH ×4 (02:18→20:37)
[2016-10-05] MEDS: methylPREDNISolone Sodium Succinate 40 MG/1 ML SDV IVPUSH SCH ×2 (02:29→09:45)
[2016-10-05] MEDS: Piperacillin/Tazobactam 4.5 GM in Sodium Chloride 0.9% 100 ML IV SCH ×3 (02:29→18:13)
[2016-10-05] MEDS: Furosemide 80 MG Tab PO SCH ×2 (06:20→13:36)
[2016-10-05] MEDS: SPIRIVA RESPIMAT INH SCH (09:17)
[2016-10-05] MEDS: Fluticasone/Salmeterol 500-50 MCG Inhalation Powder 14/Diskus INH SCH ×2 (09:18→20:37)
[2016-10-05] MEDS: oxyCODONE ER 10 MG TAB.ER PO SCH ×2 (09:43→21:24)
[2016-10-05] MEDS: DULoxetine 30 MG Cap PO SCH (09:43)
[2016-10-05] MEDS: Oxybutynin 5 MG Tab.ER PO SCH ×2 (09:43→21:25)
[2016-10-05] MEDS: Pantoprazole 40 MG Tab.CR PO SCH ×2 (09:43→21:25)
[2016-10-05] MEDS: Carvedilol 3.125 MG Tab PO SCH ×2 (09:44→21:24)
[2016-10-05] MEDS: Gabapentin 300 MG Cap PO SCH ×3 (09:44→21:25)
[2016-10-05] MEDS: Apixaban 5 MG Tab PO SCH ×2 (09:44→21:24)
[2016-10-05] MEDS: Aspirin 81 MG Tab.EC PO SCH (09:45)
[2016-10-05] MEDS: Tamsulosin 0.4 MG Cap.ER PO SCH (09:45)
[2016-10-05] MEDS: Potassium Chloride 20 MEQ Tab.ER PO SCH ×3 (09:45→21:25)
[2016-10-05] MEDS: Finasteride 5 MG Tab PO SCH (09:45)
[2016-10-05] MEDS ORDERED: Magnesium Sulfate/Water 2 GM in Premix Bag 1 BAG IV ONE (10:44)
--- NOTE | 2016-10-05 11:41 | PCM.PN ---
- General Info Date of Service: 10/05/16 Functional Status: Reports: Pain Controlled, Tolerating Diet, Ambulating, Urinating - Review of Systems General: Reports: No Symptoms HEENT: Reports: No Symptoms Pulmonary: Reports: Shortness of Breath Cardiovascular: Reports: No Symptoms Gastrointestinal: Reports: No Symptoms Genitourinary: Reports: No Symptoms Musculoskeletal: Reports: No Symptoms Skin: Reports: No Symptoms Neurological: Reports: No Symptoms Psychiatric: Reports: No Symptoms - Patient Data Vitals - most recent: Last Vital Signs Temp 36.3 C 10/05/16 09:40 Pulse 74 10/05/16 09:44 Resp 12 10/05/16 09:40 BP 132/59 L 10/05/16 09:44 Pulse Ox 99 10/05/16 09:40 Weight - most recent: 116.8 kg I&O - last 24 hours: Intake & Output 10/04/16 10/05/16 10/05/16 22:59 06:59 14:59 Intake Total 2097 650 Output Total 1100 1750 Balance 997 -1100 Lab Results last 24 hrs: Laboratory Results - last 24 hr 10/04/16 10/05/16 10/05/16 Range/Units 05:40 05:45 05:45 WBC 14.59 H (4.23-9.07) K/mm3 RBC 3.68 L (4.63-6.08) M/mm3 Hgb 11.2 L (13.7-17.5) gm/L Hct 33.5 L (40.1-51.0) % MCV 91.0 (79.0-92.2) fl MCH 30.4 (25.7-32.2) pg MCHC 33.4 (32.2-35.5) g/dl RDW Std Deviation 51.4 H (35.1-43.9) fL Plt Count 215 (163-337) K/mm3 MPV 9.4 (9.4-12.3) fl Neut % (Auto) 87.7 H (34.0-67.9) % Lymph % (Auto) 8.8 L (21.8-53.1) % Lewis % (Auto) 2.1 L (5.3-12.2) % Eos % (Auto) 0 L (0.8-7.0) Baso % (Auto) 0.1 (0.1-1.2) % Neut # (Auto) 12.81 H (1.78-5.38) K/mm3 Lymph # (Auto) 1.28 L (1.32-3.57) K/mm3 Lewis # (Auto) 0.30 (0.30-0.82) K/mm3 Eos # (Auto) 0.00 L (0.04-0.54) K/mm3 Baso # (Auto) 0.01 (0.01-0.08) K/mm3 Manual Slide Review Abnormal smear Sodium 138 (136-145) mEq/L Potassium 3.8 (3.5-5.1) mEq/L Chloride 102 (98-107) mEq/L Carbon Dioxide 28 (21-32) mEq/L Anion Gap 11.8 (5-15) BUN 13 (7-18) mg/dL Creatinine 1.2 (0.7-1.3) mg/dL Est Cr Clr Drug Dosing 69.45 mL/min Estimated GFR (MDRD) > 60 (>60) mL/min BUN/Creatinine Ratio 10.8 L (14-18) Glucose 154 H (80-115) mg/dL Calcium 8.9 (8.5-10.1) mg/dL Magnesium 1.7 L (1.8-2.4) mg/dl Troponin I 0.034 (0.00-0.056) ng/mL Mycoplasma pneumon IgM Negative (NEGATIVE) Med Orders - Current: Current Medications Acetaminophen (Tylenol) 650 mg PO Q4H PRN PRN Reason: Fever Last Admin: 10/04/16 03:26 Dose: 650 mg Albuterol (Proventil Neb Soln) 2.5 mg NEB Q4HRRT PRN PRN Reason: shortness of breath Albuterol (Proventil Hfa) 0 gm INH Q4H PRN PRN Reason: Shortness of Breath Albuterol/Ipratropium (Duoneb 3.0-0.5 Mg/3 Ml) 3 ml NEB Q6HRRT [facility] Last Admin: 10/05/16 09:17 Dose: 3 ml Apixaban (Eliquis) 5 mg PO BID [facility] Last Admin: 10/05/16 09:44 Dose: 5 mg Aspirin (Halfprin) 81 mg PO DAILY [facility] Last Admin: 10/05/16 09:45 Dose: 81 mg Bisacodyl (Dulcolax) 10 mg RECTAL DAILY PRN PRN Reason: Constipation Carvedilol (Coreg) 3.125 mg PO BID [facility] Last Admin: 10/05/16 09:44 Dose: 3.125 mg Duloxetine HCl (Cymbalta) 90 mg PO DAILY [facility] Last Admin: 10/05/16 09:43 Dose: 90 mg Finasteride (Proscar) 5 mg PO DAILY [facility] Last Admin: 10/05/16 09:45 Dose: 5 mg Furosemide (Lasix) 80 mg PO BIDDIURETIC [facility] Last Admin: 10/05/16 06:20 Dose: 80 mg Gabapentin (Neurontin) 300 mg PO TID [facility] Last Admin: 10/05/16 09:44 Dose: 300 mg Levofloxacin/Dextrose 750 mg/ (Premix) 150 mls @ 100 mls/hr IV Q24H [facility] Last Admin: 10/04/16 22:59 Dose: 100 mls/hr Piperacillin Sod/Tazobactam (Sod 4.5 gm/ Sodium Chloride) 100 mls @ 25 mls/hr IV Q8H [facility] Last Admin: 10/05/16 11:07 Dose: 25 mls/hr Magnesium Sulfate 2 gm/ Premix 50 mls @ 25 mls/hr IV ONETIME ONE Stop: 10/05/16 12:43 Last Admin: 10/05/16 11:09 Dose: 25 mls/hr Lactulose (Cephulac) 20 gm PO DAILY PRN PRN Reason: CONSTIPATION Levothyroxine Sodium (Levothyroxine) 175 mcg PO DAILY@0700 [facility] Last Admin: 10/05/16 06:20 Dose: 175 mcg Methylprednisolone Sodium Succinate (Solu-Medrol) 40 mg IVPUSH DAILY [facility] Nitroglycerin (Nitrostat) 0.4 mg SL ASDIRECTED PRN PRN Reason: Chest Pain Spiriva Respimat 5 ([employer] Med) 5 mcg INH DAILYRT [facility] Last Admin: 10/05/16 09:17 Dose: 5 mcg Non-Formulary Medication (Suvorexant [Belsomra]) 20 mg PO BEDTIME PRN PRN Reason: Insomnia Oxybutynin Chloride (Oxybutynin Er) 5 mg PO BID [facility] Last Admin: 10/05/16 09:43 Dose: 5 mg Oxycodone HCl (Oxycontin) 10 mg PO Q12HR [facility] Last Admin: 10/05/16 09:43 Dose: 10 mg Oxycodone/Acetaminophen (Percocet 325-5 Mg) 2 tab PO Q6H PRN PRN Reason: Pain (moderate 4-6) Last Admin: 10/05/16 00:14 Dose: 2 tab Pantoprazole Sodium (Protonix) 40 mg PO BID [facility] Last Admin: 10/05/16 09:43 Dose: 40 mg Potassium Chloride (Klor-Con M20) 20 meq PO TID [facility] Last Admin: 10/05/16 09:45 Dose: 20 meq Fluticasone/Salmeterol (Advair Diskus 500-50) 1 puff INH BID [facility] Last Admin: 10/05/16 09:18 Dose: 1 puff Senna/Docusate Sodium (Senna Plus) 2 tab PO BID [facility] Last Admin: 10/05/16 09:43 Dose: 2 tab Simvastatin (Zocor) 20 mg PO BEDTIME [facility] Last Admin: 10/04/16 21:42 Dose: 20 mg Tamsulosin HCl (Flomax) 0.4 mg PO DAILY [facility] Last Admin: 10/05/16 09:45 Dose: 0.4 mg Temazepam (Restoril) 7.5 mg PO BEDTIME PRN PRN Reason: Sleep Last Admin: 10/04/16 22:45 Dose: 7.5 mg Discontinued Medications Albuterol/Ipratropium (Duoneb 3.0-0.5 Mg/3 Ml) Confirm Administered Dose 3 ml .ROUTE .STK-MED ONE Stop: 10/04/16 02:04 Last Admin: 10/04/16 02:49 Dose: Not Given Bumetanide (Bumex) 1 mg IVPUSH ONETIME ONE Stop: 10/04/16 17:46 Diatrizoate Meglum/Diatrizoate Sod (Gastrografin 37%) 90 ml PO ONETIME ONE Stop: 10/03/16 22:47 Last Admin: 10/04/16 03:42 Dose: Not Given Enoxaparin Sodium (Lovenox) 40 mg SUBCUT DAILY@2100 [facility] Last Admin: 10/04/16 23:41 Dose: Not Given Enoxaparin Sodium (Lovenox) 30 mg SUBCUT DAILY [facility] Last Admin: 10/04/16 11:12 Dose: 30 mg Furosemide (Lasix) 80 mg PO BID [facility] Last Admin: 10/04/16 21:49 Dose: 80 mg Sodium Chloride (Normal Saline) 100 mls @ 60 mls/hr IV ASDIRECTED [facility] Last Admin: 10/03/16 23:37 Dose: 60 mls/hr Levofloxacin/Dextrose 750 mg/ (Premix) 150 mls @ 100 mls/hr IV ONETIME ONE Stop: 10/04/16 01:49 Last Admin: 10/04/16 01:00 Dose: 100 mls/hr Sodium Chloride (Normal Saline) 1,000 mls @ 100 mls/hr IV ASDIRECTED [facility] Last Admin: 10/04/16 01:01 Dose: 100 mls/hr Piperacillin Sod/Tazobactam (Sod 4.5 gm/ Sodium Chloride) 100 mls @ 200 mls/hr IV ONETIME ONE Stop: 10/04/16 03:59 Last Admin: 10/04/16 03:32 Dose: 200 mls/hr Sodium Chloride (Normal Saline) 1,000 mls @ 100 mls/hr IV ASDIRECTED [facility] Last Admin: 10/04/16 11:08 Dose: 100 mls/hr Iopamidol (Isovue-370 (76%)) 100 ml IVPUSH ONETIME ONE Stop: 10/03/16 22:46 Last Admin: 10/03/16 23:36 Dose: 100 ml Iopamidol (Isovue-370 (76%)) 100 ml IVPUSH ONETIME ONE Stop: 10/03/16 23:26 Last Admin: 10/03/16 23:36 Dose: 40 ml Meperidine HCl (Demerol) 50 mg IVPUSH ONETIME ONE Stop: 10/03/16 21:33 Last Admin: 10/03/16 21:42 Dose: 50 mg Methylprednisolone Sodium Succinate (Solu-Medrol) 40 mg IVPUSH Q8H [facility] Last Admin: 10/05/16 09:45 Dose: 40 mg Oxycodone/Acetaminophen (Percocet 325-5 Mg) 1 tab PO Q8H PRN PRN Reason: Pain (moderate 4-6) Last Admin: 10/04/16 11:19 Dose: 1 tab Oxycodone/Acetaminophen (Percocet 325-5 Mg) 1 tab PO Q6H PRN PRN Reason: Pain (moderate 4-6) Fluticasone/Salmeterol (Advair Diskus 500-50) 0 puff INH BIDRT [facility] Last Admin: 10/04/16 20:40 Dose: 1 puff Sodium Chloride (Saline Flush) 10 ml FLUSH ONETIME ONE Stop: 10/03/16 22:46 Last Admin: 10/03/16 23:36 Dose: 10 ml - Exam Quality Assessment: supplemental oxygen, DVT prophylaxis General: alert, oriented, cooperative, no acute distress HEENT: Pupils equal, Pupils reactive, EOMI, Mucous membr. moist/pink Neck: supple, trachea midline Lungs: Normal Respiratory Effort, Decreased Breath Sounds Cardiovascular: Regular Rate GI/Abdominal Exam: Normal Bowel Sounds, Soft, Non-Tender, No Organomegaly, No Distention (Male) Exam: Deferred Back Exam: Normal Inspection Extremities: Normal Inspection, Non-Tender, Pedal Edema Skin: warm Neurological: no new focal deficit, normal speech Psy/Mental Status: alert, normal affect, normal mood - Problem List & Annotations (1) Bronchopneumonia SNOMED Code(s): 142593027 Code(s): J18.0 - BRONCHOPNEUMONIA, UNSPECIFIED ORGANISM Status: Acute Current Visit: Yes (2) Bilateral pneumonia SNOMED Code(s): 580286680 Code(s): J18.9 - PNEUMONIA, UNSPECIFIED ORGANISM Status: Acute Current Visit: No Qualifiers: Pneumonia type: due to unspecified organism Lung location: lower lobe of lung Qualified Code(s): J18.9 - Pneumonia, unspecified organism (3) COPD (chronic obstructive pulmonary disease) with emphysema SNOMED Code(s): 61023110 Code(s): J43.9 - EMPHYSEMA, UNSPECIFIED Status: Acute Current Visit: No Qualifiers: Emphysema type: other Qualified Code(s): J43.8 - Other emphysema (4) Congestive heart failure SNOMED Code(s): 17070373 Code(s): I50.9 - HEART FAILURE, UNSPECIFIED Status: Acute Current Visit: No Qualifiers: Congestive heart failure type: diastolic Congestive heart failure chronicity: acute on chronic Qualified Code(s): I50.33 - Acute on chronic diastolic (congestive) heart failure - Problem List Review Problem List Initiated/Reviewed/Updated: Yes - My Orders Last 24 Hours: My Active Orders 10/04/16 10:45 Lactulose [Cephulac] 20 gm PO DAILY PRN 10/04/16 11:00 Piperacillin/Tazobactam [Zosyn] 4.5 gm Sodium Chloride 0.9% [Normal Saline] 100 ml IV Q8H 10/04/16 11:07 RESPIRATORY PANEL BY PCR [MREF] Routine 10/04/16 15:00 Gabapentin [Neurontin] 300 mg PO TID Potassium Chloride [Klor-Con M20] 20 meq PO TID 10/04/16 15:10 Up With Assistance [RC] ASDIRECTED 10/04/16 16:07 Acetaminophen/oxyCODONE [Percocet 325-5 MG] 2 tab PO Q6H PRN 10/04/16 21:00 Apixaban [Eliquis] 5 mg PO BID Carvedilol [Coreg] 3.125 mg PO BID Docusate Sodium/Sennosides [Senna Plus] 2 tab PO BID Oxybutynin [Oxybutynin ER] 5 mg PO BID Simvastatin [Zocor] 20 mg PO BEDTIME oxyCODONE ER [OxyCONTIN] 10 mg PO Q12HR 10/04/16 23:59 Levofloxacin/Dextrose 5%-Water [Levaquin in D5W 750 MG/150 ML] 750 mg Premix Bag 1 bag IV Q24H 10/04/16 Lunch Heart Healthy Diet [DIET] 10/05/16 06:00 Furosemide [Lasix] 80 mg PO BIDDIURETIC 10/05/16 07:00 Levothyroxine 175 mcg PO DAILY@0700 10/05/16 08:00 Tiotropium [place] [Spiriva Respimat] 5 mcg INH DAILYRT 10/05/16 09:00 Aspirin [Halfprin] 81 mg PO DAILY DULoxetine [Cymbalta] 90 mg PO DAILY Finasteride [Proscar] 5 mg PO DAILY Fluticasone/Salmeterol [Advair Diskus 500-50] 1 puff INH BID Pantoprazole [ProTONIX] 40 mg PO BID Tamsulosin [Flomax] 0.4 mg PO DAILY 10/05/16 10:44 Magnesium Sulfate/Water [Magnesium Sulfate 2 GM in Water 50 ML] 2 gm Premix Bag 1 bag IV ONETIME 10/06/16 05:00 BMP [BASIC METABOLIC PANEL,BMP] [CHEM] DAILY CBC WITH AUTO DIFF [HEME] DAILY CRP [C-REACTIVE PROTEIN] [CHEM] DAILY MAGNESIUM [CHEM] DAILY 10/06/16 07:00 CXR [Chest 2V] [CR] Routine 10/06/16 08:00 Consult to Occupational Therapy [OT Evaluation and Treatment] [CONS] Routine Consult to Catheter Finisher And Inspector [CONS] Routine 10/06/16 09:00 Consult to Physical Therapy [PT Evaluation and Treatment] [CONS] Routine methylPREDNISolone Sod Succ [Solu-MEDROL] 40 mg IVPUSH DAILY 10/06/16 10:00 Echo Comp wo Cont [US] Routine 10/07/16 05:00 BMP [BASIC METABOLIC PANEL,BMP] [CHEM] DAILY CBC WITH AUTO DIFF [HEME] DAILY CRP [C-REACTIVE PROTEIN] [CHEM] DAILY MAGNESIUM [CHEM] DAILY 10/08/16 05:00 BMP [BASIC METABOLIC PANEL,BMP] [CHEM] DAILY CBC WITH AUTO DIFF [HEME] DAILY CRP [C-REACTIVE PROTEIN] [CHEM] DAILY MAGNESIUM [CHEM] DAILY - Plan Plan:: Impression: Respiratory distress with hypoxia Presumptively treated as HCAP; hypoxia by pulse oximetry History of recent intubation for pneumonia, currently resides at [facility] Chronic COPD A Fib on a NOAC FINN with CPAP HTN HLD Hypothyroidism CKD HF Chronic back discomfort, L4-L5 spinal stenosis Plan: IVF ATBs Steroids nebs Home meds Daily Labs Repeat CXR, 10/06/16 SW/PT/OT Gi/DVT prophylaxis
[2016-10-05] MEDS: Simvastatin 20 MG Tab PO SCH (21:25)
[2016-10-05] MEDS: Temazepam 7.5 MG Cap PO PRN (21:31)
[2016-10-05] MEDS: Levofloxacin/Dextrose 5%-Water 750 MG in Premix Bag 1 BAG IV SCH (23:38)
[2016-10-06] MEDS: Piperacillin/Tazobactam 4.5 GM in Sodium Chloride 0.9% 100 ML IV SCH ×3 (02:34→18:12)
[2016-10-06] MEDS: Albuterol/Ipratropium 3.0-0.5 MG/3 ML Neb Soln NEB SCH ×4 (02:54→20:35)
[2016-10-06] MEDS: Acetaminophen/oxyCODONE 325-5 MG Tab PO PRN ×3 (05:21→18:20)
[2016-10-06] MEDS: Furosemide 80 MG Tab PO SCH ×2 (06:40→15:32)
--- NOTE | 2016-10-06 07:43 | PCM.PN ---
<Marcie Fitzgerald - Last Filed: 10/06/16 13:47> - General Info Date of Service: 10/06/16 Admission Dx/Problem (Free Text): Doing very well, up ambulatory with PT/OT. No coughing, wheezing, SOB, swelling to LE minimal. Functional Status: Reports: Pain Controlled, Tolerating Diet, Ambulating, Urinating, Incentive Spirometry. Denies: New Symptoms - Review of Systems General: Reports: No Symptoms, Other (energy improved). Denies: Fever HEENT: Reports: No Symptoms Pulmonary: Reports: No Symptoms. Denies: Shortness of Breath, Pleuritic Chest Pain, Cough, Sputum, Hemoptysis Cardiovascular: Reports: No Symptoms Gastrointestinal: Reports: No Symptoms Genitourinary: Reports: No Symptoms Musculoskeletal: Reports: Back Pain (chronic) Neurological: Reports: No Symptoms Psychiatric: Reports: No Symptoms - Patient Data Vitals - Most Recent: Last Vital Signs Temp 97.5 F 10/06/16 02:53 Pulse 58 L 10/06/16 02:53 Resp 19 10/06/16 02:53 BP 146/85 H 10/06/16 02:55 Pulse Ox 94 L 10/06/16 02:54 Weight - Most Recent: 118.161 kg I&O - Last 24 Hours: Intake & Output 10/05/16 10/06/16 10/06/16 22:59 06:59 14:59 Intake Total 1260 600 Output Total 2500 2725 Balance -1240 -2125 Lab Results Last 24 Hours: Laboratory Results - last 24 hr 10/06/16 10/06/16 Range/Units 06:37 06:37 WBC 14.18 H (4.23-9.07) K/mm3 RBC 3.48 L (4.63-6.08) M/mm3 Hgb 10.7 L (13.7-17.5) gm/L Hct 32.5 L (40.1-51.0) % MCV 93.4 H (79.0-92.2) fl MCH 30.7 (25.7-32.2) pg MCHC 32.9 (32.2-35.5) g/dl RDW Std Deviation 53.0 H (35.1-43.9) fL Plt Count 220 (163-337) K/mm3 MPV 9.6 (9.4-12.3) fl Neut % (Auto) 78.5 H (34.0-67.9) % Lymph % (Auto) 13.4 L (21.8-53.1) % [place] % (Auto) 6.3 (5.3-12.2) % Eos % (Auto) 0.1 L (0.8-7.0) Baso % (Auto) 0.1 (0.1-1.2) % Neut # (Auto) 11.13 H (1.78-5.38) K/mm3 Lymph # (Auto) 1.90 (1.32-3.57) K/mm3 [place] # (Auto) 0.90 H (0.30-0.82) K/mm3 Eos # (Auto) 0.02 L (0.04-0.54) K/mm3 Baso # (Auto) 0.01 (0.01-0.08) K/mm3 Sodium 138 (136-145) mEq/L Potassium 3.8 (3.5-5.1) mEq/L Chloride 103 (98-107) mEq/L Carbon Dioxide 26 (21-32) mEq/L Anion Gap 12.8 (5-15) BUN 10 (7-18) mg/dL Creatinine 1.1 (0.7-1.3) mg/dL Est Cr Clr Drug Dosing 75.77 mL/min Estimated GFR (MDRD) > 60 (>60) mL/min BUN/Creatinine Ratio 9.1 L (14-18) Glucose 109 (80-115) mg/dL Calcium 8.9 (8.5-10.1) mg/dL Magnesium 2.1 (1.8-2.4) mg/dl C-Reactive Protein 0.8 (<1.0) mg/dL Med Orders - Current: Current Medications Acetaminophen (Tylenol) 650 mg PO Q4H PRN PRN Reason: Fever Last Admin: 10/04/16 03:26 Dose: 650 mg Albuterol (Proventil Neb Soln) 2.5 mg NEB Q4HRRT PRN PRN Reason: shortness of breath Albuterol (Proventil Hfa) 0 gm INH Q4H PRN PRN Reason: Shortness of Breath Albuterol/Ipratropium (Duoneb 3.0-0.5 Mg/3 Ml) 3 ml NEB Q6HRRT [facility] Last Admin: 10/06/16 02:54 Dose: 3 ml Apixaban (Eliquis) 5 mg PO BID [facility] Last Admin: 10/05/16 21:24 Dose: 5 mg Aspirin (Halfprin) 81 mg PO DAILY [facility] Last Admin: 10/05/16 09:45 Dose: 81 mg Bisacodyl (Dulcolax) 10 mg RECTAL DAILY PRN PRN Reason: Constipation Carvedilol (Coreg) 3.125 mg PO BID [facility] Last Admin: 10/05/16 21:24 Dose: 3.125 mg Duloxetine HCl (Cymbalta) 90 mg PO DAILY [facility] Last Admin: 10/05/16 09:43 Dose: 90 mg Finasteride (Proscar) 5 mg PO DAILY [facility] Last Admin: 10/05/16 09:45 Dose: 5 mg Furosemide (Lasix) 80 mg PO BIDDIURETIC [facility] Last Admin: 10/06/16 06:40 Dose: 80 mg Gabapentin (Neurontin) 300 mg PO TID [facility] Last Admin: 10/05/16 21:25 Dose: 300 mg Levofloxacin/Dextrose 750 mg/ (Premix) 150 mls @ 100 mls/hr IV Q24H [facility] Last Admin: 10/05/16 23:38 Dose: 100 mls/hr Piperacillin Sod/Tazobactam (Sod 4.5 gm/ Sodium Chloride) 100 mls @ 25 mls/hr IV Q8H [facility] Last Admin: 10/06/16 02:34 Dose: 25 mls/hr Lactulose (Cephulac) 20 gm PO DAILY PRN PRN Reason: CONSTIPATION Levothyroxine Sodium (Levothyroxine) 175 mcg PO DAILY@0700 [facility] Last Admin: 10/06/16 06:41 Dose: 175 mcg Methylprednisolone Sodium Succinate (Solu-Medrol) 40 mg IVPUSH DAILY [facility] Nitroglycerin (Nitrostat) 0.4 mg SL ASDIRECTED PRN PRN Reason: Chest Pain Spiriva Respimat 5 ([employer] Med) 5 mcg INH DAILYRT [facility] Last Admin: 10/05/16 09:17 Dose: 5 mcg Oxybutynin Chloride (Oxybutynin Er) 5 mg PO BID [facility] Last Admin: 10/05/16 21:25 Dose: 5 mg Oxycodone HCl (Oxycontin) 10 mg PO Q12HR [facility] Last Admin: 10/05/16 21:24 Dose: 10 mg Oxycodone/Acetaminophen (Percocet 325-5 Mg) 2 tab PO Q6H PRN PRN Reason: Pain (moderate 4-6) Last Admin: 10/06/16 05:21 Dose: 2 tab Pantoprazole Sodium (Protonix) 40 mg PO BID [facility] Last Admin: 10/05/16 21:25 Dose: 40 mg Suvorexant [Belsomra (] 20 Mg) 0 each PO BEDTIME PRN PRN Reason: Insomnia Potassium Chloride (Klor-Con M20) 20 meq PO TID [facility] Last Admin: 10/05/16 21:25 Dose: 20 meq Fluticasone/Salmeterol (Advair Diskus 500-50) 1 puff INH BID [facility] Last Admin: 10/05/16 20:37 Dose: 1 puff Senna/Docusate Sodium (Senna Plus) 2 tab PO BID [facility] Last Admin: 10/05/16 21:25 Dose: 2 tab Simvastatin (Zocor) 20 mg PO BEDTIME [facility] Last Admin: 10/05/16 21:25 Dose: 20 mg Tamsulosin HCl (Flomax) 0.4 mg PO DAILY [facility] Last Admin: 10/05/16 09:45 Dose: 0.4 mg Temazepam (Restoril) 7.5 mg PO BEDTIME PRN PRN Reason: Sleep Last Admin: 10/05/16 21:31 Dose: 7.5 mg Discontinued Medications Albuterol/Ipratropium (Duoneb 3.0-0.5 Mg/3 Ml) Confirm Administered Dose 3 ml .ROUTE .STK-MED ONE Stop: 10/04/16 02:04 Last Admin: 10/04/16 02:49 Dose: Not Given Bumetanide (Bumex) 1 mg IVPUSH ONETIME ONE Stop: 10/04/16 17:46 Diatrizoate Meglum/Diatrizoate Sod (Gastrografin 37%) 90 ml PO ONETIME ONE Stop: 10/03/16 22:47 Last Admin: 10/04/16 03:42 Dose: Not Given Enoxaparin Sodium (Lovenox) 40 mg SUBCUT DAILY@2100 [facility] Last Admin: 10/04/16 23:41 Dose: Not Given Enoxaparin Sodium (Lovenox) 30 mg SUBCUT DAILY [facility] Last Admin: 10/04/16 11:12 Dose: 30 mg Furosemide (Lasix) 80 mg PO BID [facility] Last Admin: 10/04/16 21:49 Dose: 80 mg Sodium Chloride (Normal Saline) 100 mls @ 60 mls/hr IV ASDIRECTED [facility] Last Admin: 10/03/16 23:37 Dose: 60 mls/hr Levofloxacin/Dextrose 750 mg/ (Premix) 150 mls @ 100 mls/hr IV ONETIME ONE Stop: 10/04/16 01:49 Last Admin: 10/04/16 01:00 Dose: 100 mls/hr Sodium Chloride (Normal Saline) 1,000 mls @ 100 mls/hr IV ASDIRECTED [facility] Last Admin: 10/04/16 01:01 Dose: 100 mls/hr Piperacillin Sod/Tazobactam (Sod 4.5 gm/ Sodium Chloride) 100 mls @ 200 mls/hr IV ONETIME ONE Stop: 10/04/16 03:59 Last Admin: 10/04/16 03:32 Dose: 200 mls/hr Sodium Chloride (Normal Saline) 1,000 mls @ 100 mls/hr IV ASDIRECTED [facility] Last Admin: 10/04/16 11:08 Dose: 100 mls/hr Magnesium Sulfate 2 gm/ Premix 50 mls @ 25 mls/hr IV ONETIME ONE Stop: 10/05/16 12:43 Last Admin: 10/05/16 11:09 Dose: 25 mls/hr Iopamidol (Isovue-370 (76%)) 100 ml IVPUSH ONETIME ONE Stop: 10/03/16 22:46 Last Admin: 10/03/16 23:36 Dose: 100 ml Iopamidol (Isovue-370 (76%)) 100 ml IVPUSH ONETIME ONE Stop: 10/03/16 23:26 Last Admin: 10/03/16 23:36 Dose: 40 ml Meperidine HCl (Demerol) 50 mg IVPUSH ONETIME ONE Stop: 10/03/16 21:33 Last Admin: 10/03/16 21:42 Dose: 50 mg Methylprednisolone Sodium Succinate (Solu-Medrol) 40 mg IVPUSH Q8H [facility] Last Admin: 10/05/16 09:45 Dose: 40 mg Oxycodone/Acetaminophen (Percocet 325-5 Mg) 1 tab PO Q8H PRN PRN Reason: Pain (moderate 4-6) Last Admin: 10/04/16 11:19 Dose: 1 tab Oxycodone/Acetaminophen (Percocet 325-5 Mg) 1 tab PO Q6H PRN PRN Reason: Pain (moderate 4-6) Fluticasone/Salmeterol (Advair Diskus 500-50) 0 puff INH BIDRT [facility] Last Admin: 10/04/16 20:40 Dose: 1 puff Sodium Chloride (Saline Flush) 10 ml FLUSH ONETIME ONE Stop: 10/03/16 22:46 Last Admin: 10/03/16 23:36 Dose: 10 ml - Exam Quality Assessment: DVT Prophylaxis General: Alert, Oriented, Cooperative, No Acute Distress, Other (pleasant) HEENT: Pupils Equal, Pupils Reactive, EOMI, Mucous Membr. Moist/[place] Neck: Supple Lungs: Clear to Auscultation, Normal Respiratory Effort Cardiovascular: Regular Rate, Regular Rhythm, No Murmurs GI/Abdominal Exam: Normal Bowel Sounds, Soft, Non-Tender, No Organomegaly (Male) Exam: Deferred Back Exam: Normal Inspection Extremities: Normal Inspection, Non-Tender, Pedal Edema (trace bilat to ankles/ pedal) Peripheral Pulses: 1+: Dorsalis Pedis (L), Dorsalis Pedis (R) Skin: Warm, Dry Neurological: No New Focal Deficit Psy/Mental Status: Alert, Normal Affect, Normal Mood - Problem List & Annotations (1) Bronchopneumonia SNOMED Code(s): 319535858 Code(s): J18.0 - BRONCHOPNEUMONIA, UNSPECIFIED ORGANISM Status: Resolved Priority: High Current Visit: Yes (2) Bilateral pneumonia SNOMED Code(s): 153134739 Code(s): J18.9 - PNEUMONIA, UNSPECIFIED ORGANISM Status: Resolved Priority: High Current Visit: Yes Qualifiers: Pneumonia type: due to unspecified organism Lung location: lower lobe of lung Qualified Code(s): J18.9 - Pneumonia, unspecified organism (3) COPD (chronic obstructive pulmonary disease) with emphysema SNOMED Code(s): 16843499 Code(s): J43.9 - EMPHYSEMA, UNSPECIFIED Status: Chronic Priority: High Current Visit: Yes Qualifiers: Emphysema type: other Qualified Code(s): J43.8 - Other emphysema (4) Congestive heart failure SNOMED Code(s): 58114138 Code(s): I50.9 - HEART FAILURE, UNSPECIFIED Status: Chronic Priority: High Current Visit: Yes Qualifiers: Congestive heart failure type: diastolic Congestive heart failure chronicity: acute on chronic Qualified Code(s): I50.33 - Acute on chronic diastolic (congestive) heart failure (5) Low back pain SNOMED Code(s): 137100512 Code(s): M54.5 - LOW BACK PAIN Status: Chronic Priority: Medium Current Visit: Yes Qualifiers: Chronicity: chronic Back pain laterality: bilateral Sciatica presence: without sciatica Qualified Code(s): M54.5 - Low back pain; G89.29 - Other chronic pain (6) Peripheral neuropathy SNOMED Code(s): 393888480 Code(s): G62.9 - POLYNEUROPATHY, UNSPECIFIED Status: Chronic Priority: Medium Current Visit: No Qualifiers: Peripheral neuropathy type: polyneuropathy, unspecified Qualified Code(s): G62.9 - Polyneuropathy, unspecified - Problem List Review Problem List Initiated/Reviewed/Updated: Yes - Plan Plan:: Impression: Respiratory distress with hypoxia -Bilateral bronchopneumonia -Presumptively treated as HCAP; hypoxia by pulse oximetry -History of recent intubation for pneumonia, currently resides at [facility] for rehab stay s/p DC from [facility] in [place] Chronic COPD A Fib on a NOAC--rate controlled FINN with CPAP HTN--controlled HLD Hypothyroidism CKD HF Chronic back discomfort, L4-L5 spinal stenosis Peripheral neuropathy d/t stenosis Plan: IVF ATBs Steroids nebs Home meds Daily Labs Repeat CXR, 10/06/16--PNA appears to be resolved Echocardiogram- EF of 55-60%, no acute valvular concerns. SW/PT/OT GI/DVT prophylaxis Patient doing very well, may plan to dc home tomorrow <Freda Lui - Last Filed: 10/06/16 16:05> - Patient Data Vitals - Most Recent: Last Vital Signs Temp 36.9 C 10/06/16 15:34 Pulse 71 10/06/16 15:34 Resp 14 07/24/17 15:34 BP 134/74 10/06/16 15:34 Pulse Ox 95 10/06/16 15:34 I&O - Last 24 Hours: Intake & Output 10/06/16 10/06/16 10/06/16 06:59 14:59 22:59 Intake Total 851 773 0100 Output Total 3785 1890 Balance -2125 540 -170 Lab Results Last 24 Hours: Laboratory Results - last 24 hr 10/06/16 10/06/16 10/06/16 Range/Units 06:37 06:37 13:54 WBC 14.18 H (4.23-9.07) K/mm3 RBC 3.48 L (4.63-6.08) M/mm3 Hgb 10.7 L (13.7-17.5) gm/L Hct 32.5 L (40.1-51.0) % MCV 93.4 H (79.0-92.2) fl MCH 30.7 (25.7-32.2) pg MCHC 32.9 (32.2-35.5) g/dl RDW Std Deviation 53.0 H (35.1-43.9) fL Plt Count 220 (163-337) K/mm3 MPV 9.6 (9.4-12.3) fl Neut % (Auto) 78.5 H (34.0-67.9) % Lymph % (Auto) 13.4 L (21.8-53.1) % [place] % (Auto) 6.3 (5.3-12.2) % Eos % (Auto) 0.1 L (0.8-7.0) Baso % (Auto) 0.1 (0.1-1.2) % Neut # (Auto) 11.13 H (1.78-5.38) K/mm3 Lymph # (Auto) 1.90 (1.32-3.57) K/mm3 [place] # (Auto) 0.90 H (0.30-0.82) K/mm3 Eos # (Auto) 0.02 L (0.04-0.54) K/mm3 Baso # (Auto) 0.01 (0.01-0.08) K/mm3 Manual Slide Review Abnormal smear Sodium 138 (136-145) mEq/L Potassium 3.8 (3.5-5.1) mEq/L Chloride 103 (98-107) mEq/L Carbon Dioxide 26 (21-32) mEq/L Anion Gap 12.8 (5-15) BUN 10 (7-18) mg/dL Creatinine 1.1 (0.7-1.3) mg/dL Est Cr Clr Drug Dosing 75.77 mL/min Estimated GFR (MDRD) > 60 (>60) mL/min BUN/Creatinine Ratio 9.1 L (14-18) Glucose 109 (80-115) mg/dL Calcium 8.9 (8.5-10.1) mg/dL Magnesium 2.1 (1.8-2.4) mg/dl Iron 73 (65-175) ug/dL TIBC 228 (100-400) ug/dL % Saturation 32 (20-55) % Transferrin 182 L (202-364) mg/dL C-Reactive Protein 0.8 (<1.0) mg/dL Vitamin B12 682 (193-986) pg/ml Folate 16.9 (8.6-58.9) ng/mL Med Orders - Current: Current Medications Acetaminophen (Tylenol) 650 mg PO Q4H PRN PRN Reason: Fever Last Admin: 10/04/16 03:26 Dose: 650 mg Albuterol (Proventil Neb Soln) 2.5 mg NEB Q4HRRT PRN PRN Reason: shortness of breath Albuterol (Proventil Hfa) 0 gm INH Q4H PRN PRN Reason: Shortness of Breath Albuterol/Ipratropium (Duoneb 3.0-0.5 Mg/3 Ml) 3 ml NEB Q6HRRT [facility] Last Admin: 10/06/16 14:58 Dose: 3 ml Apixaban (Eliquis) 5 mg PO BID [facility] Last Admin: 10/06/16 08:49 Dose: 5 mg Aspirin (Halfprin) 81 mg PO DAILY [facility] Last Admin: 10/06/16 08:51 Dose: 81 mg Bisacodyl (Dulcolax) 10 mg RECTAL DAILY PRN PRN Reason: Constipation Carvedilol (Coreg) 3.125 mg PO BID [facility] Last Admin: 10/06/16 08:52 Dose: 3.125 mg Duloxetine HCl (Cymbalta) 90 mg PO DAILY [facility] Last Admin: 10/06/16 08:49 Dose: 90 mg Finasteride (Proscar) 5 mg PO DAILY [facility] Last Admin: 10/06/16 08:49 Dose: 5 mg Furosemide (Lasix) 80 mg PO BIDDIURETIC [facility] Last Admin: 10/06/16 15:32 Dose: 80 mg Gabapentin (Neurontin) 300 mg PO TID [facility] Last Admin: 10/06/16 15:32 Dose: 300 mg Levofloxacin/Dextrose 750 mg/ (Premix) 150 mls @ 100 mls/hr IV Q24H [facility] Last Admin: 10/05/16 23:38 Dose: 100 mls/hr Piperacillin Sod/Tazobactam (Sod 4.5 gm/ Sodium Chloride) 100 mls @ 25 mls/hr IV Q8H [facility] Last Admin: 10/06/16 12:11 Dose: 25 mls/hr Lactulose (Cephulac) 20 gm PO DAILY PRN PRN Reason: CONSTIPATION Levothyroxine Sodium (Levothyroxine) 175 mcg PO DAILY@0700 [facility] Last Admin: 10/06/16 06:41 Dose: 175 mcg Methylprednisolone Sodium Succinate (Solu-Medrol) 40 mg IVPUSH DAILY [facility] Last Admin: 10/06/16 08:51 Dose: 40 mg Nitroglycerin (Nitrostat) 0.4 mg SL ASDIRECTED PRN PRN Reason: Chest Pain Spiriva Respimat 5 ([employer] Med) 5 mcg INH DAILYRT [facility] Last Admin: 10/06/16 09:43 Dose: 5 mcg Oxybutynin Chloride (Oxybutynin Er) 5 mg PO BID [facility] Last Admin: 10/06/16 08:48 Dose: 5 mg Oxycodone HCl (Oxycontin) 10 mg PO Q12HR [facility] Last Admin: 10/06/16 08:48 Dose: 10 mg Oxycodone/Acetaminophen (Percocet 325-5 Mg) 2 tab PO Q6H PRN PRN Reason: Pain (moderate 4-6) Last Admin: 10/06/16 12:10 Dose: 2 tab Pantoprazole Sodium (Protonix) 40 mg PO BID [facility] Last Admin: 10/06/16 08:49 Dose: 40 mg Suvorexant [Belsomra (] 20 Mg) 0 each PO BEDTIME PRN PRN Reason: Insomnia Potassium Chloride (Klor-Con M20) 20 meq PO TID [facility] Last Admin: 10/06/16 15:32 Dose: 20 meq Fluticasone/Salmeterol (Advair Diskus 500-50) 1 puff INH BID [facility] Last Admin: 10/06/16 09:43 Dose: 1 puff Senna/Docusate Sodium (Senna Plus) 2 tab PO BID [facility] Last Admin: 10/06/16 08:52 Dose: 2 tab Simvastatin (Zocor) 20 mg PO BEDTIME [facility] Last Admin: 10/05/16 21:25 Dose: 20 mg Tamsulosin HCl (Flomax) 0.4 mg PO DAILY [facility] Last Admin: 10/06/16 08:50 Dose: 0.4 mg Temazepam (Restoril) 7.5 mg PO BEDTIME PRN PRN Reason: Sleep Last Admin: 10/05/16 21:31 Dose: 7.5 mg Discontinued Medications Albuterol/Ipratropium (Duoneb 3.0-0.5 Mg/3 Ml) Confirm Administered Dose 3 ml .ROUTE .STK-MED ONE Stop: 10/04/16 02:04 Last Admin: 10/04/16 02:49 Dose: Not Given Bumetanide (Bumex) 1 mg IVPUSH ONETIME ONE Stop: 10/04/16 17:46 Diatrizoate Meglum/Diatrizoate Sod (Gastrografin 37%) 90 ml PO ONETIME ONE Stop: 10/03/16 22:47 Last Admin: 10/04/16 03:42 Dose: Not Given Enoxaparin Sodium (Lovenox) 40 mg SUBCUT DAILY@2100 [facility] Last Admin: 10/04/16 23:41 Dose: Not Given Enoxaparin Sodium (Lovenox) 30 mg SUBCUT DAILY [facility] Last Admin: 10/04/16 11:12 Dose: 30 mg Furosemide (Lasix) 80 mg PO BID [facility] Last Admin: 10/04/16 21:49 Dose: 80 mg Hydromorphone HCl (Dilaudid) 1 mg IVPUSH ONETIME ONE Stop: 10/06/16 15:19 Last Admin: 10/06/16 15:28 Dose: 1 mg Sodium Chloride (Normal Saline) 100 mls @ 60 mls/hr IV ASDIRECTED [facility] Last Admin: 10/03/16 23:37 Dose: 60 mls/hr Levofloxacin/Dextrose 750 mg/ (Premix) 150 mls @ 100 mls/hr IV ONETIME ONE Stop: 10/04/16 01:49 Last Admin: 10/04/16 01:00 Dose: 100 mls/hr Sodium Chloride (Normal Saline) 1,000 mls @ 100 mls/hr IV ASDIRECTED [facility] Last Admin: 10/04/16 01:01 Dose: 100 mls/hr Piperacillin Sod/Tazobactam (Sod 4.5 gm/ Sodium Chloride) 100 mls @ 200 mls/hr IV ONETIME ONE Stop: 10/04/16 03:59 Last Admin: 10/04/16 03:32 Dose: 200 mls/hr Sodium Chloride (Normal Saline) 1,000 mls @ 100 mls/hr IV ASDIRECTED [facility] Last Admin: 10/04/16 11:08 Dose: 100 mls/hr Magnesium Sulfate 2 gm/ Premix 50 mls @ 25 mls/hr IV ONETIME ONE Stop: 10/05/16 12:43 Last Admin: 10/05/16 11:09 Dose: 25 mls/hr Iopamidol (Isovue-370 (76%)) 100 ml IVPUSH ONETIME ONE Stop: 10/03/16 22:46 Last Admin: 10/03/16 23:36 Dose: 100 ml Iopamidol (Isovue-370 (76%)) 100 ml IVPUSH ONETIME ONE Stop: 10/03/16 23:26 Last Admin: 10/03/16 23:36 Dose: 40 ml Meperidine HCl (Demerol) 50 mg IVPUSH ONETIME ONE Stop: 10/03/16 21:33 Last Admin: 10/03/16 21:42 Dose: 50 mg Methylprednisolone Sodium Succinate (Solu-Medrol) 40 mg IVPUSH Q8H [facility] Last Admin: 10/05/16 09:45 Dose: 40 mg Oxycodone/Acetaminophen (Percocet 325-5 Mg) 1 tab PO Q8H PRN PRN Reason: Pain (moderate 4-6) Last Admin: 10/04/16 11:19 Dose: 1 tab Oxycodone/Acetaminophen (Percocet 325-5 Mg) 1 tab PO Q6H PRN PRN Reason: Pain (moderate 4-6) Fluticasone/Salmeterol (Advair Diskus 500-50) 0 puff INH BIDRT [facility] Last Admin: 10/04/16 20:40 Dose: 1 puff Sodium Chloride (Saline Flush) 10 ml FLUSH ONETIME ONE Stop: 10/03/16 22:46 Last Admin: 10/03/16 23:36 Dose: 10 ml - Problem List & Annotations (1) Bronchopneumonia SNOMED Code(s): 546828069 Code(s): J18.0 - BRONCHOPNEUMONIA, UNSPECIFIED ORGANISM Status: Resolved Priority: High Current Visit: Yes (2) Bilateral pneumonia SNOMED Code(s): 822661516 Code(s): J18.9 - PNEUMONIA, UNSPECIFIED ORGANISM Status: Resolved Priority: High Current Visit: Yes Qualifiers: Pneumonia type: due to unspecified organism Lung location: lower lobe of lung Qualified Code(s): J18.9 - Pneumonia, unspecified organism (3) COPD (chronic obstructive pulmonary disease) with emphysema SNOMED Code(s): 49881745 Code(s): J43.9 - EMPHYSEMA, UNSPECIFIED Status: Chronic Priority: High Current Visit: Yes Qualifiers: Emphysema type: other Qualified Code(s): J43.8 - Other emphysema (4) Congestive heart failure SNOMED Code(s): 87843246 Code(s): I50.9 - HEART FAILURE, UNSPECIFIED Status: Chronic Priority: High Current Visit: Yes Qualifiers: Congestive heart failure type: diastolic Congestive heart failure chronicity: acute on chronic Qualified Code(s): I50.33 - Acute on chronic diastolic (congestive) heart failure - My Orders Last 24 Hours: My Active Orders 10/06/16 08:00 Consult to Occupational Therapy [OT Evaluation and Treatment] [CONS] Routine Consult to Submarine Advisory Team Watch Officer [CONS] Routine 10/06/16 09:00 Consult to Physical Therapy [PT Evaluation and Treatment] [CONS] Routine methylPREDNISolone Sod Succ [Solu-MEDROL] 40 mg IVPUSH DAILY 10/06/16 11:36 OT Evaluation and Treatment [CONS] Routine 10/07/16 05:00 BMP [BASIC METABOLIC PANEL,BMP] [CHEM] DAILY CBC WITH AUTO DIFF [HEME] DAILY CRP [C-REACTIVE PROTEIN] [CHEM] DAILY MAGNESIUM [CHEM] DAILY 10/08/16 05:00 BMP [BASIC METABOLIC PANEL,BMP] [CHEM] DAILY CBC WITH AUTO DIFF [HEME] DAILY CRP [C-REACTIVE PROTEIN] [CHEM] DAILY MAGNESIUM [CHEM] DAILY - Plan Plan:: DC to home tomorrow
[2016-10-06] MEDS: oxyCODONE ER 10 MG TAB.ER PO SCH ×2 (08:48→21:44)
[2016-10-06] MEDS: Oxybutynin 5 MG Tab.ER PO SCH ×2 (08:48→21:43)
[2016-10-06] MEDS: Apixaban 5 MG Tab PO SCH ×2 (08:49→21:43)
[2016-10-06] MEDS: Pantoprazole 40 MG Tab.CR PO SCH ×2 (08:49→21:44)
[2016-10-06] MEDS: DULoxetine 30 MG Cap PO SCH (08:49)
[2016-10-06] MEDS: Potassium Chloride 20 MEQ Tab.ER PO SCH ×3 (08:49→21:44)
[2016-10-06] MEDS: Finasteride 5 MG Tab PO SCH (08:49)
[2016-10-06] MEDS: Tamsulosin 0.4 MG Cap.ER PO SCH (08:50)
[2016-10-06] MEDS: Gabapentin 300 MG Cap PO SCH ×3 (08:50→21:44)
[2016-10-06] MEDS: methylPREDNISolone Sodium Succinate 40 MG/1 ML SDV IVPUSH SCH (08:51)
[2016-10-06] MEDS: Aspirin 81 MG Tab.EC PO SCH (08:51)
[2016-10-06] MEDS: Carvedilol 3.125 MG Tab PO SCH ×2 (08:52→21:45)
[2016-10-06] MEDS: Fluticasone/Salmeterol 500-50 MCG Inhalation Powder 14/Diskus INH SCH ×2 (09:43→20:35)
[2016-10-06] MEDS: SPIRIVA RESPIMAT INH SCH (09:43)
--- NOTE | 2016-10-06 09:56 | CR ---
Chest: Two views of the chest were obtained. Comparison: Previous chest x-ray of 10/03/16. Thick areas of atelectasis are noted within the left lung base. Lungs otherwise are clear. Degenerative spurring is noted within the spine. Heart size is normal. Slight widening of the upper mediastinum is seen felt to be incidental. Stimulating electrodes are seen within the thoracic spine. Impression: 1. Thick area of atelectasis within the left lung base. 2. Other incidental findings as described above. Diagnostic code #2
[2016-10-06] MEDS ORDERED: HYDROmorphone 1 MG/ML Syringe IVPUSH ONE (15:18)
[2016-10-06] MEDS: Simvastatin 20 MG Tab PO SCH (21:43)
[2016-10-06] MEDS: Temazepam 7.5 MG Cap PO PRN (21:46)
[2016-10-06] MEDS ORDERED: Bisacodyl 5 MG Tab PO PRN (22:03)
[2016-10-07] MEDS: Acetaminophen/oxyCODONE 325-5 MG Tab PO PRN ×2 (00:24→10:26)
[2016-10-07] MEDS: Levofloxacin/Dextrose 5%-Water 750 MG in Premix Bag 1 BAG IV SCH (00:24)
[2016-10-07] MEDS: Piperacillin/Tazobactam 4.5 GM in Sodium Chloride 0.9% 100 ML IV SCH ×2 (02:35→10:17)
[2016-10-07] MEDS: Albuterol/Ipratropium 3.0-0.5 MG/3 ML Neb Soln NEB SCH ×2 (05:51→09:49)
[2016-10-07 08:08] VITALS: BP 144/86
[2016-10-07] MEDS: Apixaban 5 MG Tab PO SCH (08:12)
[2016-10-07] MEDS: Aspirin 81 MG Tab.EC PO SCH (08:12)
[2016-10-07] MEDS: Oxybutynin 5 MG Tab.ER PO SCH (08:12)
[2016-10-07] MEDS: methylPREDNISolone Sodium Succinate 40 MG/1 ML SDV IVPUSH SCH (08:12)
[2016-10-07] MEDS: Gabapentin 300 MG Cap PO SCH (08:13)
[2016-10-07] MEDS: oxyCODONE ER 10 MG TAB.ER PO SCH (08:13)
[2016-10-07] MEDS: Pantoprazole 40 MG Tab.CR PO SCH (08:15)
[2016-10-07] MEDS: Furosemide 80 MG Tab PO SCH (08:15)
[2016-10-07] MEDS: Tamsulosin 0.4 MG Cap.ER PO SCH (08:16)
[2016-10-07] MEDS: DULoxetine 30 MG Cap PO SCH (08:16)
[2016-10-07] MEDS: Finasteride 5 MG Tab PO SCH (08:16)
[2016-10-07] MEDS: Potassium Chloride 20 MEQ Tab.ER PO SCH (08:17)
[2016-10-07] MEDS: Carvedilol 3.125 MG Tab PO SCH (08:18)
--- NOTE | 2016-10-07 09:32 | PCM.DCSUM1 ---
<HuFreda Melanie - Last Filed: 10/07/16 20:04> Discharge Summary - Hospital Course Free Text/Narrative:: Greatly improved, stable for DC. - Discharge Data Discharge Disposition: Home, Self-Care 01 Condition: Good - Discharge Diagnosis/Problem(s) (1) Bronchopneumonia SNOMED Code(s): 281615387 ICD Code: J18.0 - BRONCHOPNEUMONIA, UNSPECIFIED ORGANISM Status: Resolved Priority: High (2) Bilateral pneumonia SNOMED Code(s): 785455991 ICD Code: J18.9 - PNEUMONIA, UNSPECIFIED ORGANISM Status: Resolved Priority: High Qualifiers: Pneumonia type: due to unspecified organism Lung location: lower lobe of lung Qualified Code(s): J18.9 - Pneumonia, unspecified organism (3) COPD (chronic obstructive pulmonary disease) with emphysema SNOMED Code(s): 44156474 ICD Code: J43.9 - EMPHYSEMA, UNSPECIFIED Status: Chronic Priority: High Qualifiers: Emphysema type: other Qualified Code(s): J43.8 - Other emphysema (4) Congestive heart failure SNOMED Code(s): 00154065 ICD Code: I50.9 - HEART FAILURE, UNSPECIFIED Status: Chronic Priority: High Qualifiers: Congestive heart failure type: diastolic Congestive heart failure chronicity: acute on chronic Qualified Code(s): I50.33 - Acute on chronic diastolic (congestive) heart failure - Patient Summary/Data Consults: Consultations 10/06/16 08:00 Consult to Occupational Therapy [OT Evaluation and Treatment] [CONS] Routine Consult to Retail Customer Service Specialist [CONS] Routine 10/06/16 09:00 Consult to Physical Therapy [PT Evaluation and Treatment] [CONS] Routine 10/06/16 11:36 OT Evaluation and Treatment [CONS] Routine - Discharge Plan Prescriptions/Med Rec: Albuterol/Ipratropium [DuoNeb 3.0-0.5 MG/3 ML] 3 ml NEB QIDRT #60 neb Bisacodyl [Dulcolax] 5 mg PO DAILY PRN #10 tablet PRN Reason: Constipation Levofloxacin [Levaquin] 750 mg PO DAILY #7 tablet Prednisone [IJD: Prednisone] 10 mg PO DAILY #30 tab Home Medications: Home Meds Aspirin [Di Chewable Aspirin] 81 mg PO DAILY 10/06/13 [History] DULoxetine [Cymbalta] 90 mg PO DAILY 10/06/13 [History] Fluticasone/Salmeterol [Advair 500-50] 1 puff INH BID 10/06/13 [History] Gabapentin [Neurontin] 300 mg PO TID 10/06/13 [History] Nitroglycerin [Nitrostat] 0.4 mg SL ASDIRECTED PRN 10/06/13 [History] Omeprazole 20 mg PO BID 10/06/13 [History] Potassium Chloride [Klor-Con] 20 meq PO TID 10/06/13 [History] atorvaSTATin [Lipitor] 20 mg PO DAILY 11/17/14 [History] Finasteride [Proscar] 5 mg PO DAILY 05/16/15 [History] Oxybutynin Chloride [Ditropan Xl] 5 mg PO BID 05/16/15 [History] Suvorexant [Belsomra] 20 mg PO BEDTIME PRN 05/16/15 [History] Tamsulosin [Flomax] 0.4 mg PO DAILY 05/16/15 [History] oxyCODONE HCl/Acetaminophen [Percocet 10-325 mg Tablet] 1 each PO BID 05/16/15 [ History] Albuterol Sulfate [Proair Respiclick] 2 puff INH Q4H PRN 10/03/16 [History] Apixaban [Eliquis] 5 mg PO BID 10/03/16 [History] Bisacodyl 10 mg RECTAL DAILY PRN 10/03/16 [History] Carvedilol [Coreg] 3.125 mg PO BID 10/03/16 [History] Furosemide [Lasix] 80 mg PO BID 10/03/16 [History] Lactulose 20 gm PO DAILY PRN 10/03/16 [History] Sennosides/Docusate Sodium [Senna S Tablet] 2 tab PO BID 10/03/16 [History] Tiotropium [place] [Spiriva Respimat] 5 mcg INH DAILY 10/03/16 [History] oxyCODONE ER [OxyCONTIN] 10 mg PO Q12HR 10/03/16 [History] oxyCODONE HCl/Acetaminophen [Percocet 10-325 mg Tablet] 1 tab PO BID PRN [History] Acetaminophen [Tylenol] 650 mg PO Q4H PRN #0 tablet 10/07/16 [Rx] Albuterol/Ipratropium [DuoNeb 3.0-0.5 MG/3 ML] 3 ml NEB QIDRT #60 neb 10/07/16 [ Rx] Bisacodyl [Dulcolax] 5 mg PO DAILY PRN #10 tablet 10/07/16 [Rx] Levofloxacin [Levaquin] 750 mg PO DAILY #7 tablet 10/07/16 [Rx] Levothyroxine 175 mcg PO DAILY@0700 #30 tablet 10/07/16 [Rx] Prednisone [IJD: Prednisone] 10 mg PO DAILY #30 tab 10/07/16 [Rx] Patient Handouts: Smoking Cessation, Tips for Success, [id number], Fall Prevention in the Home, [id number], Smoking Hazards, Chronic Obstructive Pulmonary Disease, [id number], Peripheral Neuropathy, CPAP and BIPAP Information, Heart Failure, [id number], Community-Acquired Pneumonia, Adult, [id number]-[id number] Referrals: Candi Mancini MD [Primary Care Provider] - 10/14/16 2:00 pm - Patient Data Vitals - Most Recent: Last Vital Signs Temp 37.0 C 10/07/16 08:04 Pulse 60 10/07/16 08:18 Resp 14 10/07/16 08:04 BP 144/86 H 10/07/16 08:18 Pulse Ox 98 10/07/16 09:50 I&O - Last 24 hours: Intake & Output 10/07/16 10/07/16 10/07/16 06:59 14:59 22:59 Intake Total 1050 1260 Output Total 1000 1500 Balance 50 -240 Lab Results - Last 24 hrs: Laboratory Results - last 24 hr 10/07/16 10/07/16 Range/Units 08:15 08:15 WBC 12.04 H (4.23-9.07) K/mm3 RBC 4.05 L (4.63-6.08) M/mm3 Hgb 12.2 L (13.7-17.5) gm/L Hct 37.8 L (40.1-51.0) % MCV 93.3 H (79.0-92.2) fl MCH 30.1 (25.7-32.2) pg MCHC 32.3 (32.2-35.5) g/dl RDW Std Deviation 53.7 H (35.1-43.9) fL Plt Count 247 (163-337) K/mm3 MPV 9.4 (9.4-12.3) fl Neut % (Auto) 66.3 (34.0-67.9) % Lymph % (Auto) 20.0 L (21.8-53.1) % [place] % (Auto) 10.6 (5.3-12.2) % Eos % (Auto) 0.3 L (0.8-7.0) Baso % (Auto) 0.1 (0.1-1.2) % Neut # (Auto) 7.98 H (1.78-5.38) K/mm3 Lymph # (Auto) 2.41 (1.32-3.57) K/mm3 [place] # (Auto) 1.28 H (0.30-0.82) K/mm3 Eos # (Auto) 0.04 (0.04-0.54) K/mm3 Baso # (Auto) 0.01 (0.01-0.08) K/mm3 Manual Slide Review Abnormal smear Sodium 141 (136-145) mEq/L Potassium 3.5 (3.5-5.1) mEq/L Chloride 104 (98-107) mEq/L Carbon Dioxide 31 (21-32) mEq/L Anion Gap 9.5 (5-15) BUN 9 (7-18) mg/dL Creatinine 1.2 (0.7-1.3) mg/dL Est Cr Clr Drug Dosing 69.45 mL/min Estimated GFR (MDRD) > 60 (>60) mL/min BUN/Creatinine Ratio 7.5 L (14-18) Glucose 90 (80-115) mg/dL Calcium 9.1 (8.5-10.1) mg/dL Magnesium 2.0 (1.8-2.4) mg/dl C-Reactive Protein 0.8 (<1.0) mg/dL [facility] Results - Last 24 hrs: Microbiology 10/07/16 00:40 Stool Occult Blood ([facility]) - Final Stool / Feces 10/04/16 11:07 Respiratory Virus Panel (PCR) ([facility]) - Final Nasopharyngeal Swab - Nare, Right Med Orders - Current: Current Medications Discontinued Medications Acetaminophen (Tylenol) 650 mg PO Q4H PRN PRN Reason: Fever Last Admin: 10/04/16 03:26 Dose: 650 mg Albuterol (Proventil Neb Soln) 2.5 mg NEB Q4HRRT PRN PRN Reason: shortness of breath Albuterol (Proventil Hfa) 0 gm INH Q4H PRN PRN Reason: Shortness of Breath Albuterol/Ipratropium (Duoneb 3.0-0.5 Mg/3 Ml) 3 ml NEB Q6HRRT [facility] Last Admin: 10/06/16 14:58 Dose: 3 ml Albuterol/Ipratropium (Duoneb 3.0-0.5 Mg/3 Ml) Confirm Administered Dose 3 ml .ROUTE .STK-MED ONE Stop: 10/04/16 02:04 Last Admin: 10/04/16 02:49 Dose: Not Given Albuterol/Ipratropium (Duoneb 3.0-0.5 Mg/3 Ml) 3 ml NEB QIDRT [facility] Last Admin: 10/07/16 09:49 Dose: 3 ml Apixaban (Eliquis) 5 mg PO BID [facility] Last Admin: 10/07/16 08:12 Dose: 5 mg Aspirin (Halfprin) 81 mg PO DAILY [facility] Last Admin: 10/07/16 08:12 Dose: 81 mg Bisacodyl (Dulcolax) 10 mg RECTAL DAILY PRN PRN Reason: Constipation Bisacodyl (Dulcolax) 5 mg PO DAILY PRN PRN Reason: Constipation Last Admin: 10/07/16 00:24 Dose: 5 mg Bumetanide (Bumex) 1 mg IVPUSH ONETIME ONE Stop: 10/04/16 17:46 Carvedilol (Coreg) 3.125 mg PO BID [facility] Last Admin: 10/07/16 08:18 Dose: 3.125 mg Diatrizoate Meglum/Diatrizoate Sod (Gastrografin 37%) 90 ml PO ONETIME ONE Stop: 10/03/16 22:47 Last Admin: 10/04/16 03:42 Dose: Not Given Duloxetine HCl (Cymbalta) 90 mg PO DAILY [facility] Last Admin: 10/07/16 08:16 Dose: 90 mg Enoxaparin Sodium (Lovenox) 40 mg SUBCUT DAILY@2100 [facility] Last Admin: 10/04/16 23:41 Dose: Not Given Enoxaparin Sodium (Lovenox) 30 mg SUBCUT DAILY [facility] Last Admin: 10/04/16 11:12 Dose: 30 mg Finasteride (Proscar) 5 mg PO DAILY [facility] Last Admin: 10/07/16 08:16 Dose: 5 mg Furosemide (Lasix) 80 mg PO BID [facility] Last Admin: 10/04/16 21:49 Dose: 80 mg Furosemide (Lasix) 80 mg PO BIDDIURETIC [facility] Last Admin: 10/07/16 08:15 Dose: 80 mg Gabapentin (Neurontin) 300 mg PO TID [facility] Last Admin: 10/07/16 08:13 Dose: 300 mg Hydromorphone HCl (Dilaudid) 1 mg IVPUSH ONETIME ONE Stop: 10/06/16 15:19 Last Admin: 10/06/16 15:28 Dose: 1 mg Sodium Chloride (Normal Saline) 100 mls @ 60 mls/hr IV ASDIRECTED [facility] Last Admin: 10/03/16 23:37 Dose: 60 mls/hr Levofloxacin/Dextrose 750 mg/ (Premix) 150 mls @ 100 mls/hr IV ONETIME ONE Stop: 10/04/16 01:49 Last Admin: 10/04/16 01:00 Dose: 100 mls/hr Sodium Chloride (Normal Saline) 1,000 mls @ 100 mls/hr IV ASDIRECTED [facility] Last Admin: 10/04/16 01:01 Dose: 100 mls/hr Levofloxacin/Dextrose 750 mg/ (Premix) 150 mls @ 100 mls/hr IV Q24H [facility] Last Admin: 10/07/16 00:24 Dose: 100 mls/hr Piperacillin Sod/Tazobactam (Sod 4.5 gm/ Sodium Chloride) 100 mls @ 200 mls/hr IV ONETIME ONE Stop: 10/04/16 03:59 Last Admin: 10/04/16 03:32 Dose: 200 mls/hr Piperacillin Sod/Tazobactam (Sod 4.5 gm/ Sodium Chloride) 100 mls @ 25 mls/hr IV Q8H [facility] Last Admin: 10/07/16 10:17 Dose: 25 mls/hr Sodium Chloride (Normal Saline) 1,000 mls @ 100 mls/hr IV ASDIRECTED [facility] Last Admin: 10/04/16 11:08 Dose: 100 mls/hr Magnesium Sulfate 2 gm/ Premix 50 mls @ 25 mls/hr IV ONETIME ONE Stop: 10/05/16 12:43 Last Admin: 10/05/16 11:09 Dose: 25 mls/hr Iopamidol (Isovue-370 (76%)) 100 ml IVPUSH ONETIME ONE Stop: 10/03/16 22:46 Last Admin: 10/03/16 23:36 Dose: 100 ml Iopamidol (Isovue-370 (76%)) 100 ml IVPUSH ONETIME ONE Stop: 10/03/16 23:26 Last Admin: 10/03/16 23:36 Dose: 40 ml Lactulose (Cephulac) 20 gm PO DAILY PRN PRN Reason: CONSTIPATION Levothyroxine Sodium (Levothyroxine) 175 mcg PO DAILY@0700 [facility] Last Admin: 10/07/16 08:12 Dose: 175 mcg Meperidine HCl (Demerol) 50 mg IVPUSH ONETIME ONE Stop: 10/03/16 21:33 Last Admin: 10/03/16 21:42 Dose: 50 mg Methylprednisolone Sodium Succinate (Solu-Medrol) 40 mg IVPUSH Q8H [facility] Last Admin: 10/05/16 09:45 Dose: 40 mg Methylprednisolone Sodium Succinate (Solu-Medrol) 40 mg IVPUSH DAILY [facility] Last Admin: 10/07/16 08:12 Dose: 40 mg Nitroglycerin (Nitrostat) 0.4 mg SL ASDIRECTED PRN PRN Reason: Chest Pain Spiriva Respimat 5 ([employer]) 5 mcg INH DAILYRT [facility] Last Admin: 10/07/16 09:49 Dose: 5 mcg Oxybutynin Chloride (Oxybutynin Er) 5 mg PO BID [facility] Last Admin: 10/07/16 08:12 Dose: 5 mg Oxycodone HCl (Oxycontin) 10 mg PO Q12HR [facility] Last Admin: 10/07/16 08:13 Dose: 10 mg Oxycodone/Acetaminophen (Percocet 325-5 Mg) 1 tab PO Q8H PRN PRN Reason: Pain (moderate 4-6) Last Admin: 10/04/16 11:19 Dose: 1 tab Oxycodone/Acetaminophen (Percocet 325-5 Mg) 1 tab PO Q6H PRN PRN Reason: Pain (moderate 4-6) Oxycodone/Acetaminophen (Percocet 325-5 Mg) 2 tab PO Q6H PRN PRN Reason: Pain (moderate 4-6) Last Admin: 10/07/16 10:26 Dose: 2 tab Pantoprazole Sodium (Protonix) 40 mg PO BID [facility] Last Admin: 10/07/16 08:15 Dose: 40 mg Suvorexant [Belsomra (] 20 Mg) 0 each PO BEDTIME PRN PRN Reason: Insomnia Potassium Chloride (Klor-Con M20) 20 meq PO TID [facility] Last Admin: 10/07/16 08:17 Dose: 20 meq Fluticasone/Salmeterol (Advair Diskus 500-50) 0 puff INH BIDRT [facility] Last Admin: 10/04/16 20:40 Dose: 1 puff Fluticasone/Salmeterol (Advair Diskus 500-50) 1 puff INH BID [facility] Last Admin: 10/07/16 09:49 Dose: 1 puff Senna/Docusate Sodium (Senna Plus) 2 tab PO BID [facility] Last Admin: 10/07/16 08:12 Dose: 2 tab Simvastatin (Zocor) 20 mg PO BEDTIME [facility] Last Admin: 10/06/16 21:43 Dose: 20 mg Sodium Chloride (Saline Flush) 10 ml FLUSH ONETIME ONE Stop: 10/03/16 22:46 Last Admin: 10/03/16 23:36 Dose: 10 ml Tamsulosin HCl (Flomax) 0.4 mg PO DAILY [facility] Last Admin: 10/07/16 08:16 Dose: 0.4 mg Temazepam (Restoril) 7.5 mg PO BEDTIME PRN PRN Reason: Sleep Last Admin: 10/06/16 21:46 Dose: 7.5 mg *Q Meaningful Use (DIS) - VTE *Q VTE Criteria *Q: - Stroke *Q Stroke Criteria *Q: - AMI *Q AMI Criteria *Q: <Marcie Fitzgerald - Last Filed: 10/09/16 15:02> Discharge Summary - Hospital Course Free Text/Narrative:: The patient presents to ED for evaluation; he and his family state that he developed a fever up to 100.5, chills, right flank pain, and increased urinary frequency around 18:00 tonight. He complains of some shortness of breath. The patient states that he has had similar symptoms in the past, when he had kidney stones. In the ED, the patient is noted to have a temperature of 99.8. His oxygen saturation is 86-89% on room air. By history, the patient was seen in this ED 08/14/2016, where he was intubated for respiratory failure and transferred to [facility]. The patient's states that the patient was on a ventilator for 9 days, and was eventually discharged to [facility] on 09/10/2016 for rehabilitation stay where he has been since that time. The patient is not currently on antibiotics. The patient's PCP is Dr. Candi Mancini. Hospitalist service is consulted for admission for HCAP, will be started on duo antibiotics and will receive treatment for respiratory distress before transfer to [facility]. He is treated with IV antibiotics and steroid, aggressive pulmonary toilet with very good response. Echocardiogram was obtained with EF of 55-60%, normal lt vent systolic function, mild hypokinesia of apical septum, mild aortic valve stenosis and regurgitation; no significant change compared to 09/06/11. He was diuresed with IV diuretics, transitioned to his oral home dose without problems. Electrolytes maintained during diuresis. Repeat CXR was with resolution of rt sided pneumonia. He had a fall during hospital stay, in the bathroom. Legs became weak and slipped out from under him while on the toilet and hit his head on the sink. He did undergo head CT due to the fact that he is on Eliquis, CT was unremarkable for any acute changes. No other complications or problems occurred during his stay. He will be discharged home on levaquin x 10 days and decreasing prednisone taper. Face to face encounter with patient and on day of discharge. Patient is home bound. He will benefit from Home Health Care services with PT/OT and Nursing services for continued disease education, VS monitoring, medication monitoring and education. Continued therapy for balance, strengthening. He is to follow up with his PCP Dr. Mancini within one week of discharge for rehceck , and who will assume care for [facility] services. - Discharge Data Discharge Date: 10/07/16 (admit date 10/04/16) - Discharge Diagnosis/Problem(s) (1) Bronchopneumonia SNOMED Code(s): 765978931 ICD Code: J18.0 - BRONCHOPNEUMONIA, UNSPECIFIED ORGANISM Status: Resolved Priority: High (2) Bilateral pneumonia SNOMED Code(s): 878454081 ICD Code: J18.9 - PNEUMONIA, UNSPECIFIED ORGANISM Status: Resolved Priority: High Qualifiers: Pneumonia type: due to unspecified organism Lung location: lower lobe of lung Qualified Code(s): J18.9 - Pneumonia, unspecified organism (3) COPD (chronic obstructive pulmonary disease) with emphysema SNOMED Code(s): 80933863 ICD Code: J43.9 - EMPHYSEMA, UNSPECIFIED Status: Chronic Priority: High Qualifiers: Emphysema type: other Qualified Code(s): J43.8 - Other emphysema (4) Congestive heart failure SNOMED Code(s): 47184622 ICD Code: I50.9 - HEART FAILURE, UNSPECIFIED Status: Chronic Priority: High Qualifiers: Congestive heart failure type: diastolic Congestive heart failure chronicity: acute on chronic Qualified Code(s): I50.33 - Acute on chronic diastolic (congestive) heart failure (5) Low back pain SNOMED Code(s): 777628613 ICD Code: M54.5 - LOW BACK PAIN Status: Chronic Priority: Medium Qualifiers: Chronicity: chronic Back pain laterality: bilateral Sciatica presence: without sciatica Qualified Code(s): M54.5 - Low back pain; G89.29 - Other chronic pain (6) Peripheral neuropathy SNOMED Code(s): 674338568 ICD Code: G62.9 - POLYNEUROPATHY, UNSPECIFIED Status: Chronic Priority: Medium Qualifiers: Peripheral neuropathy type: polyneuropathy, unspecified Qualified Code(s): G62.9 - Polyneuropathy, unspecified (7) Fall SNOMED Code(s): 2224668, 172883846 ICD Code: W19.XXXA - UNSPECIFIED FALL, INITIAL ENCOUNTER Status: Acute Priority: High Qualifiers: Encounter type: initial encounter Qualified Code(s): W19.XXXA - Unspecified fall, initial encounter - Patient Summary/Data Operative Procedure(s) Performed: None Complications: None Consults: Consultations 10/06/16 08:00 Consult to Occupational Therapy [OT Evaluation and Treatment] [CONS] Routine Consult to Retail Customer Service Specialist [CONS] Routine 10/06/16 09:00 Consult to Physical Therapy [PT Evaluation and Treatment] [CONS] Routine 10/06/16 11:36 OT Evaluation and Treatment [CONS] Routine Labs Pending at D/C: None Planned Operative Procedure(s) after DC: None Hospital Course: As above - Patient Instructions Diet: Heart Healthy Diet, Diabetic Diet Activity: As Tolerated (Home Health with PT/OT to continue at home; use walker with all ambulation/transfers to prevent falls) Driving: Do Not Drive (until released by primary care physician) Showering/Bathing: July Shower Notify Provider of: Fever, Increased Pain, Nausea and/or Vomiting (cough, wheezing, shortness of breath) - Discharge Summary/Plan Comment DC Time >30 min.: Yes (40 min) - General Info Date of Service: 10/07/16 Admission Dx/Problem (Free Text: Doing very well, up ambulatory with PT/OT. No coughing, wheezing, SOB, swelling to LE minimal. Anxious for DC home today. Functional Status: Reports: Pain Controlled, Tolerating Diet, Ambulating, Urinating, Incentive Spirometry. Denies: New Symptoms - Review of Systems General: Reports: No Symptoms, Weakness (significantly improved) HEENT: Reports: No Symptoms Pulmonary: Denies: Shortness of Breath, Pleuritic Chest Pain, Cough, Sputum, Wheezing Cardiovascular: Reports: No Symptoms. Denies: Chest Pain, Palpitations, Lightheadedness Gastrointestinal: Reports: No Symptoms. Denies: Abdominal Pain, Diarrhea, Nausea, Vomiting Genitourinary: Reports: No Symptoms Musculoskeletal: Reports: Leg Pain ("neuropathy" to legs bilat) Neurological: Reports: Other (neuropathy to legs bilat) Psychiatric: Reports: No Symptoms - Patient Data Vitals - Most Recent: Last Vital Signs Temp 98.6 F 10/07/16 08:04 Pulse 60 10/07/16 08:18 Resp 14 10/07/16 08:04 BP 144/86 H 10/07/16 08:18 Pulse Ox 97 10/07/16 08:04 Weight - Most Recent: 263 lb 9.6 oz I&O - Last 24 hours: Intake & Output 10/06/16 10/07/16 10/07/16 22:59 06:59 14:59 Intake Total 2140 1050 Output Total 1890 1000 Balance 250 50 Lab Results - Last 24 hrs: Laboratory Results - last 24 hr 10/06/16 10/06/16 10/07/16 Range/Units 06:37 13:54 08:15 WBC 14.18 H 12.04 H (4.23-9.07) K/mm3 RBC 3.48 L 4.05 L (4.63-6.08) M/mm3 Hgb 10.7 L 12.2 L (13.7-17.5) gm/L Hct 32.5 L 37.8 L (40.1-51.0) % MCV 93.4 H 93.3 H (79.0-92.2) fl MCH 30.7 30.1 (25.7-32.2) pg MCHC 32.9 32.3 (32.2-35.5) g/dl RDW Std Deviation 53.0 H 53.7 H (35.1-43.9) fL Plt Count 220 247 (163-337) K/mm3 MPV 9.6 9.4 (9.4-12.3) fl Neut % (Auto) 78.5 H 66.3 (34.0-67.9) % Lymph % (Auto) 13.4 L 20.0 L (21.8-53.1) % [place] % (Auto) 6.3 10.6 (5.3-12.2) % Eos % (Auto) 0.1 L 0.3 L (0.8-7.0) Baso % (Auto) 0.1 0.1 (0.1-1.2) % Neut # (Auto) 11.13 H 7.98 H (1.78-5.38) K/mm3 Lymph # (Auto) 1.90 2.41 (1.32-3.57) K/mm3 [place] # (Auto) 0.90 H 1.28 H (0.30-0.82) K/mm3 Eos # (Auto) 0.02 L 0.04 (0.04-0.54) K/mm3 Baso # (Auto) 0.01 0.01 (0.01-0.08) K/mm3 Manual Slide Review Abnormal smear Abnormal smear Sodium (136-145) mEq/L Potassium (3.5-5.1) mEq/L Chloride (98-107) mEq/L Carbon Dioxide (21-32) mEq/L Anion Gap (5-15) BUN (7-18) mg/dL Creatinine (0.7-1.3) mg/dL Est Cr Clr Drug Dosing mL/min Estimated GFR (MDRD) (>60) mL/min BUN/Creatinine Ratio (14-18) Glucose (80-115) mg/dL Calcium (8.5-10.1) mg/dL Magnesium (1.8-2.4) mg/dl Iron 73 (65-175) ug/dL TIBC 228 (100-400) ug/dL % Saturation 32 (20-55) % Transferrin 182 L (202-364) mg/dL C-Reactive Protein (<1.0) mg/dL Vitamin B12 682 (193-986) pg/ml Folate 16.9 (8.6-58.9) ng/mL 10/07/16 Range/Units 08:15 WBC (4.23-9.07) K/mm3 RBC (4.63-6.08) M/mm3 Hgb (13.7-17.5) gm/L Hct (40.1-51.0) % MCV (79.0-92.2) fl MCH (25.7-32.2) pg MCHC (32.2-35.5) g/dl RDW Std Deviation (35.1-43.9) fL Plt Count (163-337) K/mm3 MPV (9.4-12.3) fl Neut % (Auto) (34.0-67.9) % Lymph % (Auto) (21.8-53.1) % [place] % (Auto) (5.3-12.2) % Eos % (Auto) (0.8-7.0) Baso % (Auto) (0.1-1.2) % Neut # (Auto) (1.78-5.38) K/mm3 Lymph # (Auto) (1.32-3.57) K/mm3 [place] # (Auto) (0.30-0.82) K/mm3 Eos # (Auto) (0.04-0.54) K/mm3 Baso # (Auto) (0.01-0.08) K/mm3 Manual Slide Review Sodium 141 (136-145) mEq/L Potassium 3.5 (3.5-5.1) mEq/L Chloride 104 (98-107) mEq/L Carbon Dioxide 31 (21-32) mEq/L Anion Gap 9.5 (5-15) BUN 9 (7-18) mg/dL Creatinine 1.2 (0.7-1.3) mg/dL Est Cr Clr Drug Dosing 69.45 mL/min Estimated GFR (MDRD) > 60 (>60) mL/min BUN/Creatinine Ratio 7.5 L (14-18) Glucose 90 (80-115) mg/dL Calcium 9.1 (8.5-10.1) mg/dL Magnesium 2.0 (1.8-2.4) mg/dl Iron (65-175) ug/dL TIBC (100-400) ug/dL % Saturation (20-55) % Transferrin (202-364) mg/dL C-Reactive Protein 0.8 (<1.0) mg/dL Vitamin B12 (193-986) pg/ml Folate (8.6-58.9) ng/mL [facility] Results - Last 24 hrs: Microbiology 10/07/16 00:40 Stool Occult Blood ([facility]) - Final Stool / Feces 10/04/16 11:07 Respiratory Virus Panel (PCR) ([facility]) - Final Nasopharyngeal Swab - Nare, Right Med Orders - Current: Current Medications Acetaminophen (Tylenol) 650 mg PO Q4H PRN PRN Reason: Fever Last Admin: 10/04/16 03:26 Dose: 650 mg Albuterol (Proventil Neb Soln) 2.5 mg NEB Q4HRRT PRN PRN Reason: shortness of breath Albuterol (Proventil Hfa) 0 gm INH Q4H PRN PRN Reason: Shortness of Breath Albuterol/Ipratropium (Duoneb 3.0-0.5 Mg/3 Ml) 3 ml NEB QIDRT [facility] Last Admin: 10/07/16 05:51 Dose: 3 ml Apixaban (Eliquis) 5 mg PO BID [facility] Last Admin: 10/07/16 08:12 Dose: 5 mg Aspirin (Halfprin) 81 mg PO DAILY [facility] Last Admin: 10/07/16 08:12 Dose: 81 mg Bisacodyl (Dulcolax) 10 mg RECTAL DAILY PRN PRN Reason: Constipation Bisacodyl (Dulcolax) 5 mg PO DAILY PRN PRN Reason: Constipation Last Admin: 10/07/16 00:24 Dose: 5 mg Carvedilol (Coreg) 3.125 mg PO BID [facility] Last Admin: 10/07/16 08:18 Dose: 3.125 mg Duloxetine HCl (Cymbalta) 90 mg PO DAILY [facility] Last Admin: 10/07/16 08:16 Dose: 90 mg Finasteride (Proscar) 5 mg PO DAILY [facility] Last Admin: 10/07/16 08:16 Dose: 5 mg Furosemide (Lasix) 80 mg PO BIDDIURETIC [facility] Last Admin: 10/07/16 08:15 Dose: 80 mg Gabapentin (Neurontin) 300 mg PO TID [facility] Last Admin: 10/07/16 08:13 Dose: 300 mg Levofloxacin/Dextrose 750 mg/ (Premix) 150 mls @ 100 mls/hr IV Q24H [facility] Last Admin: 10/07/16 00:24 Dose: 100 mls/hr Piperacillin Sod/Tazobactam (Sod 4.5 gm/ Sodium Chloride) 100 mls @ 25 mls/hr IV Q8H [facility] Last Admin: 10/07/16 02:35 Dose: 25 mls/hr Lactulose (Cephulac) 20 gm PO DAILY PRN PRN Reason: CONSTIPATION Levothyroxine Sodium (Levothyroxine) 175 mcg PO DAILY@0700 [facility] Last Admin: 10/07/16 08:12 Dose: 175 mcg Methylprednisolone Sodium Succinate (Solu-Medrol) 40 mg IVPUSH DAILY [facility] Last Admin: 10/07/16 08:12 Dose: 40 mg Nitroglycerin (Nitrostat) 0.4 mg SL ASDIRECTED PRN PRN Reason: Chest Pain Spiriva Respimat 5 ([employer] Med) 5 mcg INH DAILYRT [facility] Last Admin: 10/06/16 09:43 Dose: 5 mcg Oxybutynin Chloride (Oxybutynin Er) 5 mg PO BID [facility] Last Admin: 10/07/16 08:12 Dose: 5 mg Oxycodone HCl (Oxycontin) 10 mg PO Q12HR [facility] Last Admin: 10/07/16 08:13 Dose: 10 mg Oxycodone/Acetaminophen (Percocet 325-5 Mg) 2 tab PO Q6H PRN PRN Reason: Pain (moderate 4-6) Last Admin: 10/07/16 00:24 Dose: 2 tab Pantoprazole Sodium (Protonix) 40 mg PO BID [facility] Last Admin: 10/07/16 08:15 Dose: 40 mg Suvorexant [Belsomra (] 20 Mg) 0 each PO BEDTIME PRN PRN Reason: Insomnia Potassium Chloride (Klor-Con M20) 20 meq PO TID [facility] Last Admin: 10/07/16 08:17 Dose: 20 meq Fluticasone/Salmeterol (Advair Diskus 500-50) 1 puff INH BID [facility] Last Admin: 10/06/16 20:35 Dose: 1 puff Senna/Docusate Sodium (Senna Plus) 2 tab PO BID [facility] Last Admin: 10/07/16 08:12 Dose: 2 tab Simvastatin (Zocor) 20 mg PO BEDTIME [facility] Last Admin: 10/06/16 21:43 Dose: 20 mg Tamsulosin HCl (Flomax) 0.4 mg PO DAILY [facility] Last Admin: 10/07/16 08:16 Dose: 0.4 mg Temazepam (Restoril) 7.5 mg PO BEDTIME PRN PRN Reason: Sleep Last Admin: 10/06/16 21:46 Dose: 7.5 mg Discontinued Medications Albuterol/Ipratropium (Duoneb 3.0-0.5 Mg/3 Ml) 3 ml NEB Q6HRRT [facility] Last Admin: 10/06/16 14:58 Dose: 3 ml Albuterol/Ipratropium (Duoneb 3.0-0.5 Mg/3 Ml) Confirm Administered Dose 3 ml .ROUTE .STK-MED ONE Stop: 10/04/16 02:04 Last Admin: 10/04/16 02:49 Dose: Not Given Bumetanide (Bumex) 1 mg IVPUSH ONETIME ONE Stop: 10/04/16 17:46 Diatrizoate Meglum/Diatrizoate Sod (Gastrografin 37%) 90 ml PO ONETIME ONE Stop: 10/03/16 22:47 Last Admin: 10/04/16 03:42 Dose: Not Given Enoxaparin Sodium (Lovenox) 40 mg SUBCUT DAILY@2100 [facility] Last Admin: 10/04/16 23:41 Dose: Not Given Enoxaparin Sodium (Lovenox) 30 mg SUBCUT DAILY [facility] Last Admin: 10/04/16 11:12 Dose: 30 mg Furosemide (Lasix) 80 mg PO BID [facility] Last Admin: 10/04/16 21:49 Dose: 80 mg Hydromorphone HCl (Dilaudid) 1 mg IVPUSH ONETIME ONE Stop: 10/06/16 15:19 Last Admin: 10/06/16 15:28 Dose: 1 mg Sodium Chloride (Normal Saline) 100 mls @ 60 mls/hr IV ASDIRECTED [facility] Last Admin: 10/03/16 23:37 Dose: 60 mls/hr Levofloxacin/Dextrose 750 mg/ (Premix) 150 mls @ 100 mls/hr IV ONETIME ONE Stop: 10/04/16 01:49 Last Admin: 10/04/16 01:00 Dose: 100 mls/hr Sodium Chloride (Normal Saline) 1,000 mls @ 100 [facility] Admin: 10/04/16 01:01 Dose: 100 mls/hr Piperacillin Sod/Tazobactam (Sod 4.5 gm/ Sodium Chloride) 100 mls @ 200 mls/hr IV ONETIME ONE Stop: 10/04/16 03:59 Last Admin: 10/04/16 03:32 Dose: 200 mls/hr Sodium Chloride (Normal Saline) 1,000 mls @ 100 mls/hr IV ASDIRECTED [facility] Last Admin: 10/04/16 11:08 Dose: 100 mls/hr Magnesium Sulfate 2 gm/ Premix 50 mls @ 25 mls/hr IV ONETIME ONE Stop: 10/05/16 12:43 Last Admin: 10/05/16 11:09 Dose: 25 mls/hr Iopamidol (Isovue-370 (76%)) 100 ml IVPUSH ONETIME ONE Stop: 10/03/16 22:46 Last Admin: 10/03/16 23:36 Dose: 100 ml Iopamidol (Isovue-370 (76%)) 100 ml IVPUSH ONETIME ONE Stop: 10/03/16 23:26 Last Admin: 10/03/16 23:36 Dose: 40 ml Meperidine HCl (Demerol) 50 mg IVPUSH ONETIME ONE Stop: 10/03/16 21:33 Last Admin: 10/03/16 21:42 Dose: 50 mg Methylprednisolone Sodium Succinate (Solu-Medrol) 40 mg IVPUSH Q8H [facility] Last Admin: 10/05/16 09:45 Dose: 40 mg Oxycodone/Acetaminophen (Percocet 325-5 Mg) 1 tab PO Q8H PRN PRN Reason: Pain (moderate 4-6) Last Admin: 10/04/16 11:19 Dose: 1 tab Oxycodone/Acetaminophen (Percocet 325-5 Mg) 1 tab PO Q6H PRN PRN Reason: Pain (moderate 4-6) Fluticasone/Salmeterol (Advair Diskus 500-50) 0 puff INH BIDRT [facility] Last Admin: 10/04/16 20:40 Dose: 1 puff Sodium Chloride (Saline Flush) 10 ml FLUSH ONETIME ONE Stop: 10/03/16 22:46 Last Admin: 10/03/16 23:36 Dose: 10 ml - Exam Quality Assessment: Reports: DVT Prophylaxis General: Reports: Alert, Oriented, Cooperative, No Acute Distress, Other (very pleasant and talkative) HEENT: Reports: Pupils Equal, Pupils Reactive, EOMI, Mucous Membr. Moist/[place] Neck: Reports: Supple Lungs: Reports: Clear to Auscultation, Normal Respiratory Effort, Decreased Breath Sounds (bases bilat) GI/Abdominal Exam: Normal Bowel Sounds, Soft, Non-Tender (Male) Exam: Deferred Rectal (Males) Exam: Deferred Extremities: Pedal Edema (trace to 1+ to ankles bilat- significantly improved) Neurological: Reports: No New Focal Deficit Psy/Mental Status: Reports: Alert, Normal Affect, Normal Mood *Q Meaningful Use (DIS) - VTE *Q VTE Criteria *Q: - Stroke *Q Stroke Criteria *Q: - AMI *Q AMI Criteria *Q:
[2016-10-07] MEDS: SPIRIVA RESPIMAT INH SCH (09:49)
[2016-10-07] MEDS: Fluticasone/Salmeterol 500-50 MCG Inhalation Powder 14/Diskus INH SCH (09:49)
--- NOTE | 2016-10-07 12:57 | CT ---
Head CT Technique: Multiple axial sections through the brain were obtained. Intravenous contrast was not utilized. Comparison: Previous head CT study of 05/07/15. Findings: Ventricles along with basal cisterns and sulci over the convexities are within normal limits for the patient's age. Abnormality is again noted within the foramen of Monro showing increased density which is felt compatible with stable colloid cyst. This measures approximately 8 mm in size. No abnormal parenchymal densities are seen. No evidence of intracranial hemorrhage. No midline shift or mass effect is seen. Atherosclerotic calcification is seen within the carotid siphon and within the left vertebral vessel. Bone window settings show no acute calvarial abnormality. Visualized sinuses are clear. Impression: 1. 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 2. No acute intracranial abnormality is identified. Diagnostic code #2
== END 2016-10-07 14:36 | disposition home or self-care (01) | DRG 193 ==
LOC: JD.ED 20:56 → JD.MS 10-04 02:38
PROVIDERS: ADMIT Internal Medicine Critical Care Medicine; ATTEND Internal Medicine Cardiovascular Disease
DX: J18.0 Bronchopneumonia, unspecified organism (principal); I50.33 Acute on chronic diastolic (congestive) heart failure; I13.0 Hypertensive heart and chronic kidney disease with heart failure and stage 1 through stage 4 chronic kidney disease, or unspecified chronic kidney disease; J18.9 Pneumonia, unspecified organism; I10 Essential (primary) hypertension; J43.9 Emphysema, unspecified; I25.10 Atherosclerotic heart disease of native coronary artery without angina pectoris; E78.00 Pure hypercholesterolemia, unspecified; G47.30 Sleep apnea, unspecified; N40.0 Benign prostatic hyperplasia without lower urinary tract symptoms; M19.90 Unspecified osteoarthritis, unspecified site; N18.9 Chronic kidney disease, unspecified; M54.9 Dorsalgia, unspecified; Z95.5 Presence of coronary angioplasty implant and graft; E66.9 Obesity, unspecified; Z68.30 Body mass index [BMI] 30.0-30.9, adult; F03.90 Unspecified dementia, unspecified severity, without behavioral disturbance, psychotic disturbance, mood disturbance, and anxiety; G25.0 Essential tremor; Z87.442 Personal history of urinary calculi; Z85.528 Personal history of other malignant neoplasm of kidney; Z90.5 Acquired absence of kidney; Z79.82 Long term (current) use of aspirin; Z79.899 Other long term (current) drug therapy; Z91.040 Latex allergy status; Z91.09 Other allergy status, other than to drugs and biological substances; Z87.891 Personal history of nicotine dependence; R06.09 Other forms of dyspnea; R09.02 Hypoxemia; Z87.01 Personal history of pneumonia (recurrent); I48.0 Paroxysmal atrial fibrillation; Z79.01 Long term (current) use of anticoagulants; G47.33 Obstructive sleep apnea (adult) (pediatric); E78.5 Hyperlipidemia, unspecified; E03.9 Hypothyroidism, unspecified; G89.29 Other chronic pain; M48.06 Spinal stenosis, lumbar region; G62.9 Polyneuropathy, unspecified
CPT/HCPCS: 36415; 36600; 71010; 71260; 74177; 80053; 81001; 82803; 83605; 83880; 84484; 85025; 87040 ×2; 93005; 94664; 96365; 96375; 99285; J1956; J2175; J2920; J7030; J7040; J7050; Q9963; Q9967 ×2; 70450; 70450-26; 71020; 71020-26; 80048; 82272; 82607; 82746; 83036; 83540; 83735; 84466; 85379; 86140; 86738; 87486; 87581; 87633; 87641; 87798; 93306; 94640; 94640-76; 94760; 94761; 97110-GO; 97110-GP; 97112-GP; 97116-GP; 97162-GP; 97165-GO; 97530-GO; A9270-GY; J1170; J1650; J2543; J3475

== ENCOUNTER 2016-10-22 16:30 | Emergency (ER) | payer MEDICARE, BC ==
[2016-10-22 16:47] VITALS: BP 121/62
--- NOTE | 2016-10-22 18:27 | EDM.PDOC ---
ED HPI GENERAL MEDICAL PROBLEM - General Chief Complaint: Neurological Problem Stated Complaint: FELL AND HIT HEAD Time Seen by Provider: 10/22/16 16:43 Source of Information: Reports: Patient History Limitations: Reports: No Limitations - History of Present Illness INITIAL COMMENTS - FREE TEXT/NARRATIVE: The patient presents with a headache and neck pain. He fell last . He got off balance and fell and his his head, neck and right shoulder. He still has a headache and neck pain. PT/OT came to his house and he was dizzy and they recommended he come to the ER. He has no chest pain or shortness of breath. He has no abdominal pain, nausea or vomiting. He has no numbness or weakness. Onset: Sudden Duration: Day(s): () Location: Reports: Head, Neck Quality: Reports: Ache Severity: Moderate Improves with: Reports: None Worsens with: Reports: None Associated Symptoms: Reports: Headaches. Denies: Chest Pain, Fever/Chills, Nausea/Vomiting, Shortness of Breath Lower Back Pain Score (Numeric/FACES): 7 - Related Data Allergies Allergy/AdvReac Type Severity Reaction Status Date / Time adhesive tape Allergy Other Verified 10/22/16 16:43 latex Allergy Cannot Verified 10/22/16 16:43 Remember Home Meds: Home Meds Aspirin [Di Chewable Aspirin] 81 mg PO DAILY 10/06/13 [History] DULoxetine [Cymbalta] 90 mg PO DAILY 10/06/13 [History] Fluticasone/Salmeterol [Advair 500-50] 1 puff INH BID 10/06/13 [History] Gabapentin [Neurontin] 300 mg PO TID 10/06/13 [History] Nitroglycerin [Nitrostat] 0.4 mg SL ASDIRECTED PRN 10/06/13 [History] Omeprazole 20 mg PO BID 10/06/13 [History] Potassium Chloride [Klor-Con] 20 meq PO TID 10/06/13 [History] atorvaSTATin [Lipitor] 20 mg PO DAILY 11/17/14 [History] Finasteride [Proscar] 5 mg PO DAILY 05/16/15 [History] Oxybutynin Chloride [Ditropan Xl] 5 mg PO BID 05/16/15 [History] Suvorexant [Belsomra] 20 mg PO BEDTIME PRN 05/16/15 [History] Tamsulosin [Flomax] 0.4 mg PO DAILY 05/16/15 [History] oxyCODONE HCl/Acetaminophen [Percocet 10-325 mg Tablet] 1 each PO BID 05/16/15 [ History] Albuterol Sulfate [Proair Respiclick] 2 puff INH Q4H PRN 10/03/16 [History] Apixaban [Eliquis] 5 mg PO BID 10/03/16 [History] Bisacodyl 10 mg RECTAL DAILY PRN 10/03/16 [History] Carvedilol [Coreg] 3.125 mg PO BID 10/03/16 [History] Furosemide [Lasix] 80 mg PO BID 10/03/16 [History] Lactulose 20 gm PO DAILY PRN 10/03/16 [History] Sennosides/Docusate Sodium [Senna S Tablet] 2 tab PO BID 10/03/16 [History] Tiotropium Juda [Spiriva Respimat] 5 mcg INH DAILY 10/03/16 [History] oxyCODONE ER [OxyCONTIN] 10 mg PO Q12HR 10/03/16 [History] oxyCODONE HCl/Acetaminophen [Percocet 10-325 mg Tablet] 1 tab PO BID PRN [History] Acetaminophen [Tylenol] 650 mg PO Q4H PRN #0 tablet 10/07/16 [Rx] Albuterol/Ipratropium [DuoNeb 3.0-0.5 MG/3 ML] 3 ml NEB QIDRT #60 neb 10/07/16 [ Rx] Bisacodyl [Dulcolax] 5 mg PO DAILY PRN #10 tablet 10/07/16 [Rx] Levofloxacin [Levaquin] 750 mg PO DAILY #7 tablet 10/07/16 [Rx] Levothyroxine 175 mcg PO DAILY@0700 #30 tablet 10/07/16 [Rx] Prednisone [IJD: Prednisone] 10 mg PO DAILY #30 tab 10/07/16 [Rx] Past Medical History HEENT History: Reports: Hard of Hearing Other HEENT History: hearing loss, R eye surgery, glasses Cardiovascular History: Reports: Afib, CAD, High Cholesterol, Hypertension Other Cardiovascular History: diastolic dysfunction, lower extremity edema Respiratory History: Reports: COPD, Sleep Apnea, Other (See Below) Other Respiratory History: L lung nodule, dypsnea on exertion Gastrointestinal History: Reports: Helicobacter Pylori Genitourinary History: Reports: BPH, Renal Calculus, Other (See Below) Other Genitourinary History: kidney neoplasm, uric acid nephrolithiasis, nephrectomy Musculoskeletal History: Reports: Back Pain, Chronic, Osteoarthritis Other Musculoskeletal History: spinal stenosis, shoulder apin, myofasical pain, knee pain, laminectomy, stimulator implanted Neurological History: Reports: Other (See Below) Other Neuro History: essential tremor Psychiatric History: Reports: Other (See Below) Endocrine/Metabolic History: Reports: Hypothyroidism, Obesity/BMI 30+ Oncologic (Cancer) History: Reports: Thyroid, Other (See Below) Other Oncologic History: kidney cancer and thyroid cancer - Past Surgical History HEENT Surgical History: Reports: Eye Surgery, Tonsillectomy Cardiovascular Surgical History: Reports: Coronary Artery Stent GI Surgical History: Reports: Appendectomy, Colonoscopy, EGD Male Surgical History: Reports: Nephrectomy, Vasectomy Endocrine Surgical History: Reports: Thyroidectomy Neurological Surgical History: Reports: Lumbar Spine, Other (See Below) Social & Family History - Family History Family Medical History: Noncontributory - Tobacco Use Smoking Status *Q: Never Smoker Years of Tobacco use: 52 Packs/Tins Daily: 1 Used Tobacco, but Quit: No Month Tobacco Last Used: Quit 08/14/2016 Second Hand Smoke Exposure: No - Caffeine Use Caffeine Use: Reports: Coffee, Soda Other Caffeine Use: a couple cups coffee a day and sometimes a pop - Alcohol Use Days Per Week of Alcohol Use: 0 - Recreational Drug Use Recreational Drug Use: No Drug Use in Last 12 Months: No - Living Situation & Occupation Living situation: Reports: , with Spouse, Extended Care Facility Occupation: Retired ED ROS GENERAL - Review of Systems Review Of Systems: See Below Constitutional: Reports: No Symptoms HEENT: Reports: No Symptoms Respiratory: Reports: No Symptoms Cardiovascular: Reports: No Symptoms Endocrine: Reports: No Symptoms GI/Abdominal: Reports: No Symptoms : Reports: No Symptoms Musculoskeletal: Reports: Neck Pain Neurological: Reports: Dizziness, Headache ED EXAM, NEURO - Physical Exam Exam: See Below Exam Limited By: No Limitations General Appearance: Alert, No Apparent Distress Ears: Normal External Exam Nose: Normal Inspection Head Exam: Other (Abrasion to the back of the head and neck) Neck: Other (Left lateral neck) Respiratory/Chest: No Respiratory Distress, Lungs Clear, Normal Breath Sounds Cardiovascular: Regular Rate, Rhythm, No Edema, No Murmur GI/Abdominal: Soft, Non-Tender, No Organomegaly, No Mass Neurological: Alert, No Motor/Sensory Deficits, Oriented x 3 Extremities: Normal Inspection Course - Vital Signs Last Recorded V/S: Last Vital Signs Temp 97.7 F 10/22/16 16:43 Pulse 63 10/22/16 16:43 Resp 18 10/22/16 16:43 BP 121/62 10/22/16 16:43 Pulse Ox 96 10/22/16 16:43 - Orders/Labs/Meds Orders: Active Orders 24 hr Category Date Time Status Cardiac Monitoring [RC] . DIRECTED Care 10/22/16 16:55 Active Cervical Spine wo Cont [CT] Stat Exams 10/22/16 16:57 Taken Head wo Cont [CT] Stat Exams 10/22/16 16:56 Taken Shoulder Comp Rt [CR] Stat Exams 10/22/16 16:57 Taken Labs: Laboratory Tests 10/22/16 10/22/16 10/22/16 Range/Units 17:20 17:20 17:20 WBC 9.42 H (4.23-9.07) K/mm3 RBC 3.47 L (4.63-6.08) M/mm3 Hgb 10.6 L (13.7-17.5) gm/L Hct 33.8 L (40.1-51.0) % MCV 97.4 H (79.0-92.2) fl MCH 30.5 (25.7-32.2) pg MCHC 31.4 L (32.2-35.5) g/dl RDW Std Deviation 58.2 H (35.1-43.9) fL Plt Count 142 L (163-337) K/mm3 MPV 9.8 (9.4-12.3) fl Neut % (Auto) 62.3 (34.0-67.9) % Lymph % (Auto) 24.9 (21.8-53.1) % [place] % (Auto) 8.8 (5.3-12.2) % Eos % (Auto) 1.7 (0.8-7.0) Baso % (Auto) 0.5 (0.1-1.2) % Neut # (Auto) 5.86 H (1.78-5.38) K/mm3 Lymph # (Auto) 2.35 (1.32-3.57) K/mm3 [place] # (Auto) 0.83 H (0.30-0.82) K/mm3 Eos # (Auto) 0.16 (0.04-0.54) K/mm3 Baso # (Auto) 0.05 (0.01-0.08) K/mm3 Manual Slide Review Abnormal smear PT 9.5 (8.0-13.0) SECONDS INR 0.88 Sodium 139 (136-145) mEq/L Potassium 4.1 (3.5-5.1) mEq/L Chloride 105 (98-107) mEq/L Carbon Dioxide 27 (21-32) mEq/L Anion Gap 11.1 (5-15) BUN 17 (7-18) mg/dL Creatinine 1.2 (0.7-1.3) mg/dL Est Cr Clr Drug Dosing 67.51 mL/min Estimated GFR (MDRD) > 60 (>60) mL/min BUN/Creatinine Ratio 14.2 (14-18) Glucose 108 (80-115) mg/dL Calcium 9.5 (8.5-10.1) mg/dL Total Bilirubin 0.3 (0.2-1.0) mg/dL AST 14 L (15-37) U/L ALT 23 (16-63) U/L Alkaline Phosphatase 49 (46-116) U/L Total Protein 5.8 L (6.4-8.2) g/dl Albumin 2.9 L (3.4-5.0) g/dl Globulin 2.9 gm/dL Albumin/Globulin Ratio 1.0 (1-2) - Re-Assessments/Exams Free Text/Narrative Re-Assessment/Exam: 10/22/16 18:[address] of his head and neck. His WBC was a little elevated at 9.42. His Hgb was a little low at 10.6. His platelets are low at 142. His INR is normal at 0.88. His CMP looks good. 10/22/16 18:39 He told me he was on wafarin but he is on eliquis. That is why the INR is normal. His CT of his cervical spine shows no fracture. His head CT shows a 6mm hyperdense focus in the anterior aspect of the third ventricle, most compatible with a colloid cyst. No definite acute intracranial abnormality. Departure - Departure Time of Disposition: 18:45 Disposition: Home, Self-Care 01 Condition: Good Clinical Impression: Fall Qualifiers: Encounter type: initial encounter Qualified Code(s): W19.XXXA - Unspecified fall, initial encounter Head injury Qualifiers: Encounter type: initial encounter Qualified Code(s): S09.90XA - Unspecified injury of head, initial encounter Contusion of neck Qualifiers: Encounter type: initial encounter Qualified Code(s): S10.93XA - Contusion of unspecified part of neck, initial encounter - Discharge Information Referrals: Candi Mancini MD [Primary Care Provider] - Forms: ED Department Discharge Additional Instructions: Take your medication as prescribed. Continue with the physical therapy and occupational therapy. Please return if you are worse. - My Orders Last 24 Hours: My Active Orders 10/22/16 16:55 Cardiac Monitoring [RC] . DIRECTED 10/22/16 16:56 Head wo Cont [CT] Stat 10/22/16 16:57 Cervical Spine wo Cont [CT] Stat Shoulder Comp Rt [CR] Stat - Assessment/Plan Last 24 Hours: My Active Orders 10/22/16 16:55 Cardiac Monitoring [RC] . DIRECTED 10/22/16 16:56 Head wo Cont [CT] Stat 10/22/16 16:57 Cervical Spine wo Cont [CT] Stat Shoulder Comp Rt [CR] Stat
--- NOTE | 2016-10-23 11:03 | CR ---
Right shoulder: Three views of the right shoulder were obtained. Comparison: No previous shoulder study is available. Mild inferior spurring is seen within the acromioclavicular joint. Glenohumeral joint is within normal limits. No acute fracture or dislocation is seen. Electrode stimulating wires are seen within the thoracic spine. Impression: 1. Incidental findings as noted above. Nothing acute is appreciated on three-view right shoulder study. Diagnostic code #2
--- NOTE | 2016-10-23 11:03 | CT ---
Head CT Technique: Multiple axial sections through the brain were obtained. Intravenous contrast was not utilized. Comparison: Previous head CT study of 10/07/16. Findings: Ventricles along with basal cisterns and sulci over the convexities are within normal limits. Hyperdense area noted at the foramen of Monro likely representing colloid cyst which is stable. No abnormal parenchymal densities are seen. No evidence of intracranial hemorrhage. No midline shift or mass effect is seen. Bone window settings were reviewed which show minimal mucosal thickening within the ethmoid sinuses. No acute calvarial abnormality is appreciated. Impression: 1. Stable findings as noted above. Sinus findings which are felt to be incidental. 2. No acute intracranial abnormality is identified. Diagnostic code #2 I agree with preliminary report issued by [facility] ([facility] report finalized on 10/22/16, 6:51 PM Central Time)
--- NOTE | 2016-10-23 11:03 | CT ---
CT cervical spine Technique: Multiple axial sections were obtained were obtained from above C1 inferiorly to the lower T2 level. Reconstructed sagittal and coronal images were reviewed. Comparison: No previous cervical spine imaging is available. Moderate disc space narrowing noted at C5-C6. Mild posterior disc space narrowing noted at C3-C4. Diffuse anterior endplate osteophytes are seen. Posterior osteophytes noted at C5-C6. Degenerative spurring noted within the uncovertebral joints at C3-C4 and C5-C6. Mastoid sinuses and middle ear cavities are clear. Posterior skull base is intact. Mild right-sided neural foraminal stenosis noted at C2-C3. Moderate to severe right-sided neural foraminal stenosis noted at C3-C4. Posterolateral spur noted to the right side at C3-C4. Moderate to severe right-sided neural foraminal stenosis noted at C4-C5. Moderate right sided neural foraminal stenosis noted at C5-C6 with mild left-sided neural foraminal stenosis. Posterior spurring at C5-C6 causes mild central canal stenosis. No fracture is identified. No abnormal subluxation is seen on the reconstructed sagittal images. Mild diffuse degenerative change is seen throughout the apophyseal joints. Impression: 1. Diffuse degenerative change as described above. 2. No acute abnormality is appreciated. Diagnostic code #3 I agree with preliminary report issued by [facility] ([facility] report finalized on 10/22/16, 6:42 PM Central Time)
== END 2016-10-22 19:00 | disposition home or self-care (01) ==
LOC: JD.ED 16:30
DX: S09.90XA Unspecified injury of head, initial encounter (principal); S10.93XA Contusion of unspecified part of neck, initial encounter; W19.XXXA Unspecified fall, initial encounter; I10 Essential (primary) hypertension; I48.91 Unspecified atrial fibrillation; I25.10 Atherosclerotic heart disease of native coronary artery without angina pectoris; E78.00 Pure hypercholesterolemia, unspecified; J44.9 Chronic obstructive pulmonary disease, unspecified; G47.30 Sleep apnea, unspecified; E03.9 Hypothyroidism, unspecified; E66.9 Obesity, unspecified; Z95.5 Presence of coronary angioplasty implant and graft; Z90.5 Acquired absence of kidney; Z98.890 Other specified postprocedural states; Z79.82 Long term (current) use of aspirin; Z79.2 Long term (current) use of antibiotics; Z79.899 Other long term (current) drug therapy; Z91.040 Latex allergy status; Z91.09 Other allergy status, other than to drugs and biological substances
CPT/HCPCS: 36415; 70450; 70450-26; 72125; 72125-26; 73030-26-RT; 73030-RT; 80053; 85025; 85610; 99284; 99284-25

== ENCOUNTER 2016-10-24 12:58 | Emergency (ER) | payer MEDICARE, BC ==
[2016-10-24 13:14] VITALS: BP 112/86
[2016-10-24] MEDS ORDERED: Sodium Chloride 0.9% 10 ML Syringe FLUSH PRN (13:22)
--- NOTE | 2016-10-24 13:42 | CR ---
Chest: Portable view of the chest was obtained. Comparison: Previous chest x-ray of 10/06/16. Heart size is normal. Upper mediastinum is within normal limits for portable technique. Stimulating wires are again seen within the thoracic spine. Minimal atelectasis is noted above the left hemidiaphragm. Lungs otherwise are clear. Impression: 1. Incidental findings as described above. Diagnostic code #2
--- NOTE | 2016-10-24 13:56 | EDM.PDOC ---
ED HPI GENERAL MEDICAL PROBLEM - General Chief Complaint: Chest Pain Stated Complaint: CHEST PAIN/ SOB Time Seen by Provider: 10/24/16 13:10 Source of Information: Reports: Patient, RN Notes Reviewed - History of Present Illness INITIAL COMMENTS - FREE TEXT/NARRATIVE: 66-year-old male comes in with left chest pain. He states this started about 90 minutes ago. The pain is primarily over the left anterior chest with some radiation to the left shoulder. He also did feels somewhat short of breath with that. He did take a nitroglycerin pill with that the discomfort now is almost gone. He does have history of coronary artery disease. He also does have history of hypertension, congestive heart failure. He has not been coughing any more than usual. Apparently he did just have a pneumonia a few weeks ago, went to the shelter for a period of time for rehabilitation and then discharged home a couple of weeks ago. His states that they accidentally did not get him back on a couple of his meds status post discharge from the shelter until yesterday. He states he has felt more fatigued than usual the last couple of days. Chest Pain Score (Numeric/FACES): 4 - Related Data Allergies Allergy/AdvReac Type Severity Reaction Status Date / Time adhesive tape Allergy Other Verified 10/24/16 13:14 latex Allergy Cannot Verified 10/24/16 13:14 Remember Home Meds: Home Meds Aspirin [Di Chewable Aspirin] 81 mg PO DAILY 10/06/13 [History] DULoxetine [Cymbalta] 90 mg PO DAILY 10/06/13 [History] Fluticasone/Salmeterol [Advair 500-50] 1 puff INH BID 10/06/13 [History] Gabapentin [Neurontin] 300 mg PO TID 10/06/13 [History] Nitroglycerin [Nitrostat] 0.4 mg SL ASDIRECTED PRN 10/06/13 [History] Omeprazole 20 mg PO BID 10/06/13 [History] Potassium Chloride [Klor-Con] 20 meq PO TID 10/06/13 [History] atorvaSTATin [Lipitor] 20 mg PO DAILY 11/17/14 [History] Finasteride [Proscar] 5 mg PO DAILY 05/16/15 [History] Oxybutynin Chloride [Ditropan Xl] 5 mg PO BID 05/16/15 [History] Suvorexant [Belsomra] 20 mg PO BEDTIME PRN 05/16/15 [History] Tamsulosin [Flomax] 0.4 mg PO DAILY 05/16/15 [History] oxyCODONE HCl/Acetaminophen [Percocet 10-325 mg Tablet] 1 each PO BID 05/16/15 [ History] Albuterol Sulfate [Proair Respiclick] 2 puff INH Q4H PRN 10/03/16 [History] Apixaban [Eliquis] 5 mg PO BID 10/03/16 [History] Bisacodyl 10 mg RECTAL DAILY PRN 10/03/16 [History] Carvedilol [Coreg] 3.125 mg PO BID 10/03/16 [History] Furosemide [Lasix] 80 mg PO BID 10/03/16 [History] Lactulose 20 gm PO DAILY PRN 10/03/16 [History] Sennosides/Docusate Sodium [Senna S Tablet] 2 tab PO BID 10/03/16 [History] Tiotropium [place] [Spiriva Respimat] 5 mcg INH DAILY 10/03/16 [History] oxyCODONE ER [OxyCONTIN] 10 mg PO Q12HR 10/03/16 [History] oxyCODONE HCl/Acetaminophen [Percocet 10-325 mg Tablet] 1 tab PO BID PRN [History] Acetaminophen [Tylenol] 650 mg PO Q4H PRN #0 tablet 10/07/16 [Rx] Albuterol/Ipratropium [DuoNeb 3.0-0.5 MG/3 ML] 3 ml NEB QIDRT #60 neb 10/07/16 [ Rx] Bisacodyl [Dulcolax] 5 mg PO DAILY PRN #10 tablet 10/07/16 [Rx] Levofloxacin [Levaquin] 750 mg PO DAILY #7 tablet 10/07/16 [Rx] Levothyroxine 175 mcg PO DAILY@0700 #30 tablet 10/07/16 [Rx] Prednisone [IJD: Prednisone] 10 mg PO DAILY #30 tab 10/07/16 [Rx] Past Medical History HEENT History: Reports: Hard of Hearing Other HEENT History: hearing loss, R eye surgery, glasses Cardiovascular History: Reports: Afib, CAD, High Cholesterol, Hypertension, CT, Stents Other Cardiovascular History: diastolic dysfunction, lower extremity edema Respiratory History: Reports: COPD, Pneumonia, Recurrent, Sleep Apnea, Other ( See Below) Other Respiratory History: L lung nodule, dypsnea on exertion Gastrointestinal History: Reports: GERD, Helicobacter Pylori Genitourinary History: Reports: BPH, Renal Calculus, Other (See Below) Other Genitourinary History: kidney neoplasm, uric acid nephrolithiasis, nephrectomy left Musculoskeletal History: Reports: Back Pain, Chronic, Osteoarthritis Other Musculoskeletal History: spinal stenosis, shoulder apin, myofasical pain, knee pain, laminectomy, stimulator implanted Neurological History: Reports: Other (See Below) Other Neuro History: essential tremor Psychiatric History: Reports: Other (See Below) Endocrine/Metabolic History: Reports: Hypothyroidism, Obesity/BMI 30+ Oncologic (Cancer) History: Reports: Thyroid, Other (See Below) Other Oncologic History: kidney cancer and thyroid cancer - Past Surgical History HEENT Surgical History: Reports: Eye Surgery, Tonsillectomy Cardiovascular Surgical History: Reports: Coronary Artery Stent GI Surgical History: Reports: Appendectomy, Colonoscopy, EGD Male Surgical History: Reports: Nephrectomy, Vasectomy Endocrine Surgical History: Reports: Thyroidectomy Neurological Surgical History: Reports: Lumbar Spine, Other (See Below) Social & Family History - Family History Family Medical History: Noncontributory - Tobacco Use Smoking Status *Q: Former Smoker Years of Tobacco use: 52 Packs/Tins Daily: 1 Used Tobacco, but Quit: Yes Month Tobacco Last Used: 2 Second Hand Smoke Exposure: No - Caffeine Use Caffeine Use: Reports: None Other Caffeine Use: a couple cups coffee a day and sometimes a pop - Alcohol Use Days Per Week of Alcohol Use: 0 - Recreational Drug Use Recreational Drug Use: No Drug Use in Last 12 Months: No - Living Situation & Occupation Living situation: Reports: , with Spouse, Extended Care Facility Occupation: Retired ED ROS GENERAL - Review of Systems Review Of Systems: See Below Constitutional: Denies: Fever, Chills, Diaphoresis HEENT: Denies: Sinus Problem, Throat Pain Respiratory: Reports: Shortness of Breath (Gone). Denies: Cough Cardiovascular: Reports: Chest Pain (Now better) GI/Abdominal: Denies: Abdominal Pain, Nausea, Vomiting Musculoskeletal: Reports: Shoulder Pain. Denies: Arm Pain (Gone) Skin: Reports: No Symptoms Neurological: Reports: No Symptoms ED EXAM, GENERAL - Physical Exam Exam: See Below General Appearance: Alert, No Apparent Distress Eye Exam: Bilateral Eye: PERRL Throat/Mouth: Normal Inspection, Normal Oropharynx Head: Atraumatic Neck: Supple, Full Range of Motion, Other Respiratory/Chest: No Respiratory Distress (No JVD), Lungs Clear, Normal Breath Sounds. No: Rales, Rhonchi, Wheezing Cardiovascular: Regular Rate, Rhythm GI/Abdominal: Soft, Non-Tender. No: Guarding Back Exam: No: CVA Tenderness (L), CVA Tenderness (R) Extremities: Normal Inspection, Pedal Edema (Moderate bilateral), Leg Pain ( Mild posterior leg tenderness bilateral, no warmth or erythema). No: Increased Warmth, Redness Neurological: Alert, Oriented Skin Exam: Warm, Dry, Normal Color EKG INTERPRETATION EKG Date: 10/24/16 Rhythm: NSR [place]: Normal P-Wave: Present QRS: Normal ST-T: Normal Course - Vital Signs Last Recorded V/S: Last Vital Signs Temp 98.1 F 10/24/16 13:08 Pulse 62 10/24/16 13:08 Resp 20 10/24/16 13:08 BP 112/86 10/24/16 13:08 Pulse Ox 100 10/24/16 13:08 - Orders/Labs/Meds Orders: Active Orders 24 hr Category Date Time Status EKG 12 Lead [EKG Documentation Completion] [RC] STAT Care 10/24/16 13:15 Active Peripheral IV Care [RC] . DIRECTED Care 10/24/16 13:22 Active Sodium Chloride 0.9% [Saline Flush] Med 10/24/16 13:22 Active 10 ml FLUSH ASDIRECTED PRN Peripheral IV Insertion Pediatric [OM.PC] Routine Oth 10/24/16 13:22 Ordered Medication Orders Sodium Chloride (Saline Flush) 10 ml FLUSH ASDIRECTED PRN PRN Reason: Keep Vein Open Last Admin: 10/24/16 13:54 Dose: 10 ml Labs: Laboratory Tests 10/24/16 10/24/16 10/24/16 Range/Units 13:15 13:15 13:15 WBC 8.62 (4.23-9.07) K/mm3 RBC 3.57 L (4.63-6.08) M/mm3 Hgb 11.1 L (13.7-17.5) gm/L Hct 34.5 L (40.1-51.0) % MCV 96.6 H (79.0-92.2) fl MCH 31.1 (25.7-32.2) pg MCHC 32.2 (32.2-35.5) g/dl RDW Std Deviation 57.6 H (35.1-43.9) fL Plt Count 151 L (163-337) K/mm3 MPV 10.3 (9.4-12.3) fl Neut % (Auto) 65.9 (34.0-67.9) % Lymph % (Auto) 22.7 (21.8-53.1) % [place] % (Auto) 8.6 (5.3-12.2) % Eos % (Auto) 1.6 (0.8-7.0) Baso % (Auto) 0.5 (0.1-1.2) % Neut # (Auto) 5.68 H (1.78-5.38) K/mm3 Lymph # (Auto) 1.96 (1.32-3.57) K/mm3 [place] # (Auto) 0.74 (0.30-0.82) K/mm3 Eos # (Auto) 0.14 (0.04-0.54) K/mm3 Baso # (Auto) 0.04 (0.01-0.08) K/mm3 D-Dimer, Quantitative 0.48 (0.19-0.59) mg/L Sodium 137 (136-145) mEq/L Potassium 4.0 (3.5-5.1) mEq/L Chloride 103 (98-107) mEq/L Carbon Dioxide 29 (21-32) mEq/L Anion Gap 9.0 (5-15) BUN 15 (7-18) mg/dL Creatinine 1.2 (0.7-1.3) mg/dL Est Cr Clr Drug Dosing 67.19 mL/min Estimated GFR (MDRD) > 60 (>60) mL/min BUN/Creatinine Ratio 12.5 L (14-18) Glucose 87 (80-115) mg/dL Calcium 9.2 (8.5-10.1) mg/dL Total Bilirubin 0.4 (0.2-1.0) mg/dL AST 16 (15-37) U/L ALT 20 (16-63) U/L Alkaline Phosphatase 59 (46-116) U/L Troponin I < 0.017 (0.00-0.056) ng/mL [id number]-Gzicnvcwrgs Pept (0-125) pg/mL Total Protein 5.7 L (6.4-8.2) g/dl Albumin 2.7 L (3.4-5.0) g/dl Globulin 3.0 gm/dL Albumin/Globulin Ratio 0.9 L (1-2) 10/24/16 10/24/16 Range/Units 13:22 15:39 WBC (4.23-9.07) K/mm3 RBC (4.63-6.08) M/mm3 Hgb (13.7-17.5) gm/L Hct (40.1-51.0) % MCV (79.0-92.2) fl MCH (25.7-32.2) pg MCHC (32.2-35.5) g/dl RDW Std Deviation (35.1-43.9) fL Plt Count (163-337) K/mm3 MPV (9.4-12.3) fl Neut % (Auto) (34.0-67.9) % Lymph % (Auto) (21.8-53.1) % [place] % (Auto) (5.3-12.2) % Eos % (Auto) (0.8-7.0) Baso % (Auto) (0.1-1.2) % Neut # (Auto) (1.78-5.38) K/mm3 Lymph # (Auto) (1.32-3.57) K/mm3 [place] # (Auto) (0.30-0.82) K/mm3 Eos # (Auto) (0.04-0.54) K/mm3 Baso # (Auto) (0.01-0.08) K/mm3 D-Dimer, Quantitative (0.19-0.59) mg/L Sodium (136-145) mEq/L Potassium (3.5-5.1) mEq/L Chloride (98-107) mEq/L Carbon Dioxide (21-32) mEq/L Anion Gap (5-15) BUN (7-18) mg/dL Creatinine (0.7-1.3) mg/dL Est Cr Clr Drug Dosing mL/min Estimated GFR (MDRD) (>60) mL/min BUN/Creatinine Ratio (14-18) Glucose (80-115) mg/dL Calcium (8.5-10.1) mg/dL Total Bilirubin (0.2-1.0) mg/dL AST (15-37) U/L ALT (16-63) U/L Alkaline Phosphatase (46-116) U/L Troponin I < 0.017 (0.00-0.056) ng/mL Wuq-B-Kpguuikgotr Pept 918 H (0-125) pg/mL Total Protein (6.4-8.2) g/dl Albumin (3.4-5.0) g/dl Globulin gm/dL Albumin/Globulin Ratio (1-2) Meds: Medications Generic Name Dose Route Start Last Admin Trade Name Freq PRN Reason Stop Dose Admin Sodium Chloride 10 ml 10/24/16 13:22 10/24/16 13:54 Saline Flush FLUSH 10 ml ASDIRECTED PRN Administration Keep Vein Open Discontinued Medications Generic Name Dose Route Start Last Admin Trade Name Freq PRN Reason Stop Dose Admin Furosemide 60 mg 10/24/16 14:22 10/24/16 14:32 Lasix IVPUSH 10/24/16 14:23 60 mg NOW ONE Administration Oxycodone/Acetaminophen 2 tab 10/24/16 14:59 10/24/16 15:04 Percocet 325-5 Mg PO 10/24/16 15:00 2 tab ONETIME ONE Administration - Re-Assessments/Exams Free Text/Narrative Re-Assessment/Exam: 10/24/16 14:47. Patient was sleeping when I checked on a few minutes ago. Initial troponin came back negative. Her chest x-ray show what appears to be some pulmonary congestion. 2+ leg edema on evaluation.. Lasix 60 mg IV has been given. will plan to check a 2 or 3 hour troponin. 10/24/16 16:31. 2-1/2 hour troponin did come back negative. He continues to have no chest pain while here in the ED, we did give a dose of furosemide 60 mg IV shortly after initial evaluation. Labs are otherwise relatively okay. Our Radiologist has read his chest x-ray is relatively normal with no acute changes. Discharge instructions as documented. Departure - Departure Time of Disposition: 16:37 Disposition: Home, Self-Care 01 Condition: Fair Clinical Impression: Atypical chest pain Congestive heart failure Qualifiers: Congestive heart failure type: diastolic Congestive heart failure chronicity: acute on chronic Qualified Code(s): I50.33 - Acute on chronic diastolic ( congestive) heart failure Referrals: Candi Mancini MD [Primary Care Provider] - Forms: ED Department Discharge Additional Instructions: Increase your furosemide to your current 80 mg in the morning, 80 mg at 2:00 2 an additional 40 mg dosage at 6:00 in the evening as discussed. Continue to keep her legs elevated as much as possible, work your foot ankle and calf muscle with flexion and extension exercises as discussed to help "pump the fluid out of your legs better", continue to avoid salt and salty foods. See her vp client services next as planned. Sure to mention this medication change when you check in for that appointment. Check your weight daily and keep a log of daily weights for your Sample Hand and also for Dr. Mancini. Return to ED if symptoms worsening in any way. - My Orders Last 24 Hours: My Active Orders 10/24/16 13:15 EKG 12 Lead [EKG Documentation Completion] [RC] STAT 10/24/16 13:22 Peripheral IV Care [RC] . DIRECTED Sodium Chloride 0.9% [Saline Flush] 10 ml FLUSH ASDIRECTED PRN Peripheral IV Insertion Pediatric [OM.PC] Routine - Assessment/Plan Last 24 Hours: My Active Orders 10/24/16 13:15 EKG 12 Lead [EKG Documentation Completion] [RC] STAT 10/24/16 13:22 Peripheral IV Care [RC] . DIRECTED Sodium Chloride 0.9% [Saline Flush] 10 ml FLUSH ASDIRECTED PRN Peripheral IV Insertion Pediatric [OM.PC] Routine
[2016-10-24] MEDS ORDERED: Furosemide 40 MG/4 ML VIAL IVPUSH ONE (14:22)
[2016-10-24] MEDS ORDERED: Acetaminophen/oxyCODONE 325-5 MG Tab PO ONE (14:59)
== END 2016-10-24 17:00 | disposition home or self-care (01) ==
LOC: JD.ED 12:58
DX: R07.89 Other chest pain (principal); I10 Essential (primary) hypertension; I25.10 Atherosclerotic heart disease of native coronary artery without angina pectoris; I25.2 Old myocardial infarction; E78.00 Pure hypercholesterolemia, unspecified; J44.9 Chronic obstructive pulmonary disease, unspecified; K21.9 Gastro-esophageal reflux disease without esophagitis; M19.90 Unspecified osteoarthritis, unspecified site; E03.9 Hypothyroidism, unspecified; E66.9 Obesity, unspecified; G47.30 Sleep apnea, unspecified; Z98.890 Other specified postprocedural states; Z95.5 Presence of coronary angioplasty implant and graft; Z85.850 Personal history of malignant neoplasm of thyroid; Z85.528 Personal history of other malignant neoplasm of kidney; Z87.891 Personal history of nicotine dependence; Z90.49 Acquired absence of other specified parts of digestive tract; Z90.5 Acquired absence of kidney; Z79.2 Long term (current) use of antibiotics; Z79.899 Other long term (current) drug therapy; Z79.82 Long term (current) use of aspirin; Z91.040 Latex allergy status; Z91.048 Other nonmedicinal substance allergy status; Z87.01 Personal history of pneumonia (recurrent); Z68.34 Body mass index [BMI] 34.0-34.9, adult
CPT/HCPCS: 36415; 71010; 80053; 83880; 84484; 85025; 85379; 93005; 96374; 99285; A9270; J1940; J7050; 99284

== ENCOUNTER 2016-12-05 14:02 | Emergency (ER) | payer MEDICARE, BC ==
[2016-12-05 14:18] VITALS: BP 133/63
--- NOTE | 2016-12-05 14:32 | EDM.PDOC ---
ED HPI GENERAL MEDICAL PROBLEM - General Chief Complaint: Lower Extremity Injury/Pain Stated Complaint: RT KNEE LAC Time Seen by Provider: 12/05/16 14:21 Source of Information: Reports: Patient History Limitations: Reports: No Limitations - History of Present Illness INITIAL COMMENTS - FREE TEXT/NARRATIVE: 66-year-old male presents for evaluation treatment of a laceration to the right knee. Reportedly the injury occurred around 0800 this morning. Patient reports that he tripped outside landing on some landscaping brick. He reports a laceration to the right knee. He is on eliquis and was having difficulty controlling the bleeding therefore he presented to the ER. Patient is unsure of last tetanus. Onset: Today (0800) Location: Reports: Lower Extremity, Right Right Knee Pain Score (Numeric/FACES): 1 - Related Data Allergies Allergy/AdvReac Type Severity Reaction Status Date / Time adhesive tape Allergy Other Verified 10/24/16 13:14 latex Allergy Cannot Verified 10/24/16 13:14 Remember Home Meds: Home Meds Aspirin [Di Chewable Aspirin] 81 mg PO DAILY 10/06/13 [History] DULoxetine [Cymbalta] 90 mg PO DAILY 10/06/13 [History] Fluticasone/Salmeterol [Advair 500-50] 1 puff INH BID 10/06/13 [History] Gabapentin [Neurontin] 300 mg PO TID 10/06/13 [History] Nitroglycerin [Nitrostat] 0.4 mg SL ASDIRECTED PRN 10/06/13 [History] Omeprazole 20 mg PO BID 10/06/13 [History] Potassium Chloride [Klor-Con] 20 meq PO TID 10/06/13 [History] atorvaSTATin [Lipitor] 20 mg PO DAILY 11/17/14 [History] Finasteride [Proscar] 5 mg PO DAILY 05/16/15 [History] Oxybutynin Chloride [Ditropan Xl] 5 mg PO BID 05/16/15 [History] Suvorexant [Belsomra] 20 mg PO BEDTIME PRN 05/16/15 [History] Tamsulosin [Flomax] 0.4 mg PO DAILY 05/16/15 [History] oxyCODONE HCl/Acetaminophen [Percocet 10-325 mg Tablet] 1 each PO BID 05/16/15 [ History] Albuterol Sulfate [Proair Respiclick] 2 puff INH Q4H PRN 10/03/16 [History] Apixaban [Eliquis] 5 mg PO BID 10/03/16 [History] Bisacodyl 10 mg RECTAL DAILY PRN 10/03/16 [History] Carvedilol [Coreg] 3.125 mg PO BID 10/03/16 [History] Furosemide [Lasix] 80 mg PO BID 10/03/16 [History] Lactulose 20 gm PO DAILY PRN 10/03/16 [History] Sennosides/Docusate Sodium [Senna S Tablet] 2 tab PO BID 10/03/16 [History] Tiotropium [place] [Spiriva Respimat] 5 mcg INH DAILY 10/03/16 [History] oxyCODONE ER [OxyCONTIN] 10 mg PO Q12HR 10/03/16 [History] oxyCODONE HCl/Acetaminophen [Percocet 10-325 mg Tablet] 1 tab PO BID PRN [History] Acetaminophen [Tylenol] 650 mg PO Q4H PRN #0 tablet 10/07/16 [Rx] Albuterol/Ipratropium [DuoNeb 3.0-0.5 MG/3 ML] 3 ml NEB QIDRT #60 neb 10/07/16 [ Rx] Bisacodyl [Dulcolax] 5 mg PO DAILY PRN #10 tablet 10/07/16 [Rx] Levofloxacin [Levaquin] 750 mg PO DAILY #7 tablet 10/07/16 [Rx] Levothyroxine 175 mcg PO DAILY@0700 #30 tablet 10/07/16 [Rx] Prednisone [IJD: Prednisone] 10 mg PO DAILY #30 tab 10/07/16 [Rx] Past Medical History HEENT History: Reports: Hard of Hearing Other HEENT History: hearing loss, R eye surgery, glasses Cardiovascular History: Reports: Afib, CAD, High Cholesterol, Hypertension, [place], Stents Other Cardiovascular History: diastolic dysfunction, lower extremity edema Respiratory History: Reports: COPD, Pneumonia, Recurrent, Sleep Apnea, Other ( See Below) Other Respiratory History: L lung nodule, dypsnea on exertion Gastrointestinal History: Reports: GERD, Helicobacter Pylori Genitourinary History: Reports: BPH, Renal Calculus, Other (See Below) Other Genitourinary History: kidney neoplasm, uric acid nephrolithiasis, nephrectomy left Musculoskeletal History: Reports: Back Pain, Chronic, Osteoarthritis Other Musculoskeletal History: spinal stenosis, shoulder apin, myofasical pain, knee pain, laminectomy, stimulator implanted Neurological History: Reports: Other (See Below) Other Neuro History: essential tremor Psychiatric History: Reports: Other (See Below) Endocrine/Metabolic History: Reports: Hypothyroidism, Obesity/BMI 30+ Oncologic (Cancer) History: Reports: Thyroid, Other (See Below) Other Oncologic History: kidney cancer and thyroid cancer - Past Surgical History HEENT Surgical History: Reports: Eye Surgery, Tonsillectomy Cardiovascular Surgical History: Reports: Coronary Artery Stent GI Surgical History: Reports: Appendectomy, Colonoscopy, EGD Male Surgical History: Reports: Nephrectomy, Vasectomy Endocrine Surgical History: Reports: Thyroidectomy Neurological Surgical History: Reports: Lumbar Spine, Other (See Below) Social & Family History - Family History Family Medical History: Noncontributory - Tobacco Use Smoking Status *Q: Never Smoker Years of Tobacco use: 52 Packs/Tins Daily: 1 Used Tobacco, but Quit: Yes Month Tobacco Last Used: 2 Second Hand Smoke Exposure: No - Caffeine Use Caffeine Use: Reports: Coffee Other Caffeine Use: a couple cups coffee a day and sometimes a pop - Alcohol Use Days Per Week of Alcohol Use: 0 - Recreational Drug Use Recreational Drug Use: No Drug Use in Last 12 Months: No - Living Situation & Occupation Living situation: Reports: , with Spouse, Extended Care Facility Occupation: Retired Review of Systems - Review of Systems Review Of Systems: See Below Skin: Reports: Wound (3 cm in length laceration to the rigth distal anterior knee) ED EXAM, GENERAL - Physical Exam Exam: See Below Exam Limited By: No Limitations General Appearance: Alert, WD/WN, No Apparent Distress Respiratory/Chest: No Respiratory Distress Neurological: Alert, Normal Cognition, Normal Gait Psychiatric: Normal Affect, Normal Mood Skin Exam: Warm, Dry, Wound/Incision (3 cm laceration to the right distal anterior knee with a 2cm in diameter overlying abrasion) ED TRAUMA EXTREMITY PROCEDURES - Laceration/Wound Repair Right Anterior Distal Knee Lac/Wound Length In cm: 3 Appearance: Subcutaneous, Linear, Clean Distal NVT: Neuro & Vascular Intact, No Tendon Injury Anesthetic Type: Local Local Anesthesia - Lidocaine (Xylocaine): 1% Plain Local Anesthetic Volume: 2cc Skin Prep: Chlorhexidine (Hibiciens), Saline, Sterile Drape Exploration/Debridement/Repair: Wound Explored, No Foreign Material Found Closed With: Sutures Suture Size: 4-0 # of Sutures: 7 Suture Type: Nylon, Simple (2), Mattress (5) Sterile Dressing Applied: Nurse Tetanus Status Addressed: Yes Complications: No Course - Vital Signs Last Recorded V/S: Last Vital Signs Temp 36.6 C 12/05/16 14:16 Pulse 58 L 12/05/16 14:16 Resp 20 12/05/16 14:16 BP 133/63 12/05/16 14:16 Pulse Ox 95 12/05/16 14:16 - Orders/Labs/Meds Orders: Active Orders 24 hr Category Date Time Status Vaccines to be Administered [RC] PER UNIT ROUTINE Care 12/05/16 14:55 Active Meds: Medications Discontinued Medications Generic Name Dose Route Start Last Admin Trade Name Chidiq PRN Reason Stop Dose Admin Diphtheria/Tetanus/Acell Pertussis 0.5 ml 12/05/16 14:54 12/05/16 15:40 Adacel IM 12/05/16 14:55 Not Given .ONCE ONE Lidocaine HCl 50 ml 12/05/16 14:45 12/05/16 15:40 Xylocaine 1% INJECT 12/05/16 14:46 50 ml ONETIME ONE Administration - Re-Assessments/Exams Free Text/Narrative Re-Assessment/Exam: 12/05/16 16:05 review of the patient's records from April 2015 shows that he was given a tetanus when he was seen for a scalp laceration. We will withhold his tetanus since it has been within the last 10 years. The patient was sutured. He was given 5 horizontal mattress sutures and 2 simple interrupted sutures. He tolerated the procedure well. There were no complications. Discharge instructions as documented. Departure - Departure Time of Disposition: 16:06 Disposition: Home, Self-Care 01 Condition: Good Clinical Impression: Laceration - Discharge Information Instructions: Laceration Care, Adult Referrals: Candi Mancini MD [Primary Care Provider] - Forms: ED Department Discharge Additional Instructions: wash the wound with gentle soap and water twice a day. Antibacterial ointment such as bacitracin or Neosporin to the wound twice a day. Keep the wound covered. Have the sutures removed in [address] [facility] located on the [place] side the [facility] is open 8 AM to 5 PM Thursday through Thursday. They will remove the sutures for free. Please call [phone] to schedule with a provider there. Your primary care provider or the ER can also remove the sutures. Please return to the ER or the clinic immediately if you notice any worsening swelling, redness or pus. please return to the ER for any other problems, questions or concerns. - My Orders Last 24 Hours: My Active Orders 12/05/16 14:55 Vaccines to be Administered [RC] PER UNIT ROUTINE - Assessment/Plan Last 24 Hours: My Active Orders 12/05/16 14:55 Vaccines to be Administered [RC] PER UNIT ROUTINE
[2016-12-05] MEDS ORDERED: Lidocaine 1% 50 ML MDV INJECT ONE (14:45)
[2016-12-05] MEDS ORDERED: Diphtheria,Pertussis(Acell),Tetanus Vaccine 0.5 ML SDV IM ONE (14:54)
== END 2016-12-05 16:17 | disposition home or self-care (01) ==
LOC: JD.ED 14:02
DX: S81.011A Laceration without foreign body, right knee, initial encounter (principal); I10 Essential (primary) hypertension; I25.2 Old myocardial infarction; Z87.01 Personal history of pneumonia (recurrent); Z87.442 Personal history of urinary calculi; M19.90 Unspecified osteoarthritis, unspecified site; E03.9 Hypothyroidism, unspecified; E66.9 Obesity, unspecified; Z68.35 Body mass index [BMI] 35.0-35.9, adult; Z79.82 Long term (current) use of aspirin; Z79.899 Other long term (current) drug therapy; Z91.040 Latex allergy status; W01.0XXA Fall on same level from slipping, tripping and stumbling without subsequent striking against object, initial encounter
CPT/HCPCS: 12002; 99282-25; 99283-25

== ENCOUNTER 2017-11-30 15:05 | Emergency (ER) | payer MEDICARE, BC ==
[2017-11-30] MEDS ORDERED: Sodium Chloride 0.9% 1,000 ML IV ONE (15:46)
--- NOTE | 2017-11-30 16:01 | EDM.PDOC ---
ED HPI GENERAL MEDICAL PROBLEM - General Chief Complaint: General Stated Complaint: FEELING COLD/CAN HARDLY WALK Time Seen by Provider: 11/30/17 15:29 Source of Information: Reports: Patient History Limitations: Reports: No Limitations - History of Present Illness INITIAL COMMENTS - FREE TEXT/NARRATIVE: Patient is a 67-year-old male who presents to the ED with generalized weakness, lack of energy, chills, and increased urination every hour since last night at 9 :00 pm. He is concerned he has pneumonia since symptoms he is currently experiencing are similar to the previous event. Chronically Short of breath secondary to history of COPD, unchanged. Cough is unchanged. There's been no documented fever, nausea/vomiting, chest pain, dysuria, recent sick exposures. States he has body aches and flulike symptoms. Over this summer he developed pneumonia and had to be intubated transferred to [facility] for quite some time. Patient carries a history of atrial fibrillation, coronary disease, hypertension, ID with stents, COPD, recurrent pneumonia, sleep apnea, cancer, and hypothyroidism. In addition has history of BPH and is currently on 3 meds. Lower Back Pain Score (Numeric/FACES): 5 - Related Data Allergies Allergy/AdvReac Type Severity Reaction Status Date / Time adhesive tape Allergy Other Verified 11/30/17 15:25 latex Allergy Cannot Verified 11/30/17 15:25 Remember Home Meds: Home Meds DULoxetine [Cymbalta] 90 mg PO DAILY 10/06/13 [History] Nitroglycerin [Nitrostat] 0.4 mg SL ASDIRECTED PRN 10/06/13 [History] Potassium Chloride [Klor-Con] 20 meq PO BID 10/06/13 [History] atorvaSTATin [Lipitor] 20 mg PO DAILY 11/17/14 [History] Finasteride [Proscar] 5 mg PO DAILY 05/16/15 [History] Oxybutynin Chloride [Ditropan Xl] 5 mg PO BID 05/16/15 [History] Suvorexant [Belsomra] 20 mg PO BEDTIME PRN 05/16/15 [History] Tamsulosin [Flomax] 0.4 mg PO BEDTIME 05/16/15 [History] Apixaban [Eliquis] 5 mg PO BID 10/03/16 [History] Carvedilol [Coreg] 3.125 mg PO BID 10/03/16 [History] Furosemide [Lasix] 80 mg PO BID 10/03/16 [History] Tiotropium [place] [Spiriva Respimat] 2 puff INH DAILY 10/03/16 [History] oxyCODONE ER [OxyCONTIN] 20 mg PO Q12HR 10/03/16 [History] oxyCODONE HCl/Acetaminophen [Percocet 10-325 mg Tablet] 1 tab PO Q4HR PRN [History] Albuterol Sulfate [Proair Hfa] 8.5 gm IH Q6HR PRN 11/30/17 [History] Cholecalciferol (Vitamin D3) [Vitamin D] 5,000 unit PO WEEKLY 11/30/17 [History] Doxazosin [Doxazosin Mesylate] 4 mg PO DAILY 11/30/17 [History] FLUoxetine HCl [Fluoxetine Dr] 90 mg PO DAILY 11/30/17 [History] Fluticasone/Vilanterol [Breo Ellipta 200-25 MCG Inhalation Kit] 1 each IH ONETIME 11/30/17 [History] HYDROmorphone [Dilaudid] 4 mg PO Q4H PRN 11/30/17 [History] Isosorbide Mononitrate [Isosorbide Mononitrate ER] 60 mg PO DAILY 11/30/17 [ History] Levothyroxine 288 mcg PO DAILY@0700 11/30/17 [History] Naloxone HCl [Narcan] 4 mg NS ONETIME 11/30/17 [History] Nebivolol [Bystolic] 2.5 mg PO DAILY 11/30/17 [History] Pregabalin [Lyrica] 100 mg PO TID 11/30/17 [History] Roflumilast [Daliresp] 1 tab PO DAILY 11/30/17 [History] Umeclidinium Brm/Vilanterol Tr [Anoro Ellipta 62.5-25 Mcg INH] 1 each IH DAILY 11/30/17 [History] amLODIPine Besylate [Amlodipine Besylate] 10 mg PO BEDTIME 11/30/17 [History] Past Medical History HEENT History: Reports: Hard of Hearing Other HEENT History: hearing loss, R eye surgery, glasses Cardiovascular History: Reports: Afib, CAD, High Cholesterol, Hypertension, ID, Stents Other Cardiovascular History: diastolic dysfunction, lower extremity edema Respiratory History: Reports: COPD, Pneumonia, Recurrent, Sleep Apnea, Other ( See Below) Other Respiratory History: L lung nodule, dypsnea on exertion Gastrointestinal History: Reports: GERD, Helicobacter Pylori Genitourinary History: Reports: BPH, Renal Calculus, Other (See Below) Other Genitourinary History: kidney neoplasm, uric acid nephrolithiasis, nephrectomy left Musculoskeletal History: Reports: Back Pain, Chronic, Osteoarthritis Other Musculoskeletal History: spinal stenosis, shoulder apin, myofasical pain, knee pain, laminectomy, stimulator implanted Neurological History: Reports: Other (See Below) Other Neuro History: essential tremor Psychiatric History: Reports: Other (See Below) Endocrine/Metabolic History: Reports: Hypothyroidism, Obesity/BMI 30+ Oncologic (Cancer) History: Reports: Thyroid, Other (See Below) Other Oncologic History: kidney cancer and thyroid cancer - Past Surgical History HEENT Surgical History: Reports: Eye Surgery, Tonsillectomy Cardiovascular Surgical History: Reports: Coronary Artery Stent GI Surgical History: Reports: Appendectomy, Colonoscopy, EGD Male Surgical History: Reports: Nephrectomy, Vasectomy Endocrine Surgical History: Reports: Thyroidectomy Neurological Surgical History: Reports: Lumbar Spine, Other (See Below) Social & Family History - Family History Family Medical History: Noncontributory - Tobacco Use Smoking Status *Q: Never Smoker - Caffeine Use Caffeine Use: Reports: Coffee, Soda Other Caffeine Use: a couple cups coffee a day and sometimes a pop - Recreational Drug Use Recreational Drug Use: No - Living Situation & Occupation Living situation: Reports: , with Spouse, Extended Care Facility Occupation: Retired ED ROS GENERAL - Review of Systems Review Of Systems: See Below Constitutional: Reports: Chills, Malaise, Weakness, Fatigue, Night Sweats, Decreased Appetite. Denies: Fever, Diaphoresis HEENT: Reports: No Symptoms Respiratory: Reports: Shortness of Breath (chronic), Cough (chronic). Denies: Wheezing, Pleuritic Chest Pain, Hemoptysis Cardiovascular: Reports: No Symptoms Endocrine: Reports: No Symptoms GI/Abdominal: Reports: No Symptoms : Reports: No Symptoms Musculoskeletal: Reports: No Symptoms Skin: Reports: No Symptoms Neurological: Reports: Other (Patient has generalized weakens ) Psychiatric: Reports: No Symptoms ED EXAM, GENERAL - Physical Exam Exam: See Below Exam Limited By: No Limitations General Appearance: Alert, WD/WN, Mild Distress Eye Exam: Bilateral Eye: EOMI, Normal Inspection, Nystagmus (none noted), PERRL Ears: Hearing Grossly Normal Nose: Normal Inspection Throat/Mouth: Normal Voice, No Airway Compromise, Other (mouth dry) Neck: Normal Inspection, Supple Respiratory/Chest: No Respiratory Distress, Lungs Clear, Normal Breath Sounds, No Accessory Muscle Use, Chest Non-Tender Cardiovascular: Normal Peripheral Pulses, Regular Rate, Rhythm, No Murmur Peripheral Pulses: 2+: Radial (L) GI/Abdominal: Normal Bowel Sounds, Soft, Non-Tender, No Organomegaly, No Distention Extremities: Normal Inspection Neurological: Alert, Oriented, CN II-XII Intact, Normal Cognition, No Motor/ Sensory Deficits Psychiatric: Normal Affect, Normal Mood Skin Exam: Warm, Dry, Intact, Normal Color, No Rash Course - Vital Signs Last Recorded V/S: Last Vital Signs Temp 98.0 F 11/30/17 15:15 Pulse 62 11/30/17 15:15 Resp 16 11/30/17 15:15 BP Pulse Ox 97 11/30/17 15:15 - Orders/Labs/Meds Labs: Laboratory Tests 11/30/17 11/30/17 11/30/17 Range/Units 16:15 16:15 16:15 WBC 8.84 (4.23-9.07) K/mm3 RBC 4.66 (4.63-6.08) M/mm3 Hgb 13.3 L (13.7-17.5) gm/L Hct 40.0 L (40.1-51.0) % MCV 85.8 (79.0-92.2) fl MCH 28.5 (25.7-32.2) pg MCHC 33.3 (32.2-35.5) g/dl RDW Std Deviation 43.2 (35.1-43.9) fL Plt Count 213 (163-337) K/mm3 MPV 10.0 (9.4-12.3) fl Neutrophils % (Manual) 73 H (40-60) % Band Neutrophils % 0 (0-10) % Lymphocytes % (Manual) 21 (20-40) % Atypical Lymphs % 0 % Monocytes % (Manual) 3 (2-10) % Eosinophils % (Manual) 3 (0.8-7.0) % Basophils % (Manual) 0 L (0.2-1.2) Platelet Estimate Adequate Plt Morphology Comment Normal RBC Morph Comment Normal PT 10.1 (9.5-12.1) SECONDS INR 0.93 APTT 23 L (24-31) SECONDS Sodium 138 (136-145) mEq/L Potassium 3.5 (3.5-5.1) mEq/L Chloride 105 (98-107) mEq/L Carbon Dioxide 28 (21-32) mEq/L Anion Gap 8.5 (5-15) BUN 9 (7-18) mg/dL Creatinine 1.0 (0.7-1.3) mg/dL Est Cr Clr Drug Dosing 2.78 mL/min Estimated GFR (MDRD) > 60 (>60) mL/min BUN/Creatinine Ratio 9.0 L (14-18) Glucose 110 (80-115) mg/dL Lactic Acid (0.4-2.0) mmol/L Calcium 10.1 (8.5-10.1) mg/dL Magnesium (1.8-2.4) mg/dl Total Bilirubin 0.5 (0.2-1.0) mg/dL AST 19 (15-37) U/L ALT 16 (16-63) U/L Alkaline Phosphatase 116 (46-116) U/L Troponin I < 0.017 (0.00-0.056) ng/mL C-Reactive Protein 1.4 H* (<1.0) mg/dL Total Protein 7.6 (6.4-8.2) g/dl Albumin 3.4 (3.4-5.0) g/dl Globulin 4.2 gm/dL Albumin/Globulin Ratio 0.8 L (1-2) TSH 3rd Generation 0.224 L (0.358-3.74) uIU/mL Urine Color (Yellow) Urine Appearance (Clear) Urine pH (5.0-8.0) Ur Specific [place] (1.005-1.030) Urine Protein (Negative) Urine Glucose (UA) (Negative) Urine Ketones (Negative) Urine Occult Blood (Negative) Urine Nitrite (Negative) Urine Bilirubin (Negative) Urine Urobilinogen (0.2-1.0) Ur Leukocyte Esterase (Negative) Urine RBC (0-5) /hpf Urine WBC (0-5) /hpf Ur Epithelial Cells (0-5) /hpf Urine Bacteria (FEW) /hpf Urine Mucus (FEW) /hpf Urine Opiates Screen (NEGATIVE) Ur Buprenorphine Scrn (NEGATIVE) Ur Oxycodone Screen (NEGATIVE) Urine Methadone Screen (NEGATIVE) Ur Propoxyphene Screen (NEGATIVE) Ur Barbiturates Screen (NEGATIVE) Ur Tricyclics Screen (NEGATIVE) Ur Phencyclidine Scrn (NEGATIVE) Ur Amphetamine Screen (NEGATIVE) U Methamphetamines Scrn (NEGATIVE) U Benzodiazepines Scrn (NEGATIVE) U Cocaine Metab Screen (NEGATIVE) U Marijuana (THC) Screen (NEGATIVE) Mycoplasma pneumon IgM (NEGATIVE) 11/30/17 11/30/17 11/30/17 Range/Units 16:15 16:15 17:55 WBC (4.23-9.07) K/mm3 RBC (4.63-6.08) M/mm3 Hgb (13.7-17.5) gm/L Hct (40.1-51.0) % MCV (79.0-92.2) fl MCH (25.7-32.2) pg MCHC (32.2-35.5) g/dl RDW Std Deviation (35.1-43.9) fL Plt Count (163-337) K/mm3 MPV (9.4-12.3) fl Neutrophils % (Manual) (40-60) % Band Neutrophils % (0-10) % Lymphocytes % (Manual) (20-40) % Atypical Lymphs % % Monocytes % (Manual) (2-10) % Eosinophils % (Manual) (0.8-7.0) % Basophils % (Manual) (0.2-1.2) Platelet Estimate Plt Morphology Comment RBC Morph Comment PT (9.5-12.1) SECONDS INR APTT (24-31) SECONDS Sodium (136-145) mEq/L Potassium (3.5-5.1) mEq/L Chloride (98-107) mEq/L Carbon Dioxide (21-32) mEq/L Anion Gap (5-15) BUN (7-18) mg/dL Creatinine (0.7-1.3) mg/dL Est Cr Clr Drug Dosing mL/min Estimated GFR (MDRD) (>60) mL/min BUN/Creatinine Ratio (14-18) Glucose (80-115) mg/dL Lactic Acid 1.6 (0.4-2.0) mmol/L Calcium (8.5-10.1) mg/dL Magnesium 2.0 (1.8-2.4) mg/dl Total Bilirubin (0.2-1.0) mg/dL AST (15-37) U/L ALT (16-63) U/L Alkaline Phosphatase (46-116) U/L Troponin I (0.00-0.056) ng/mL C-Reactive Protein (<1.0) mg/dL Total Protein (6.4-8.2) g/dl Albumin (3.4-5.0) g/dl Globulin gm/dL Albumin/Globulin Ratio (1-2) TSH 3rd Generation (0.358-3.74) uIU/mL Urine Color (Yellow) Urine Appearance (Clear) Urine pH (5.0-8.0) Ur Specific [place] (1.005-1.030) Urine Protein (Negative) Urine Glucose (UA) (Negative) Urine Ketones (Negative) Urine Occult Blood (Negative) Urine Nitrite (Negative) Urine Bilirubin (Negative) Urine Urobilinogen (0.2-1.0) Ur Leukocyte Esterase (Negative) Urine RBC (0-5) /hpf Urine WBC (0-5) /hpf Ur Epithelial Cells (0-5) /hpf Urine Bacteria (FEW) /hpf Urine Mucus (FEW) /hpf Urine Opiates Screen (NEGATIVE) Ur Buprenorphine Scrn (NEGATIVE) Ur Oxycodone Screen (NEGATIVE) Urine Methadone Screen (NEGATIVE) Ur Propoxyphene Screen (NEGATIVE) Ur Barbiturates Screen (NEGATIVE) Ur Tricyclics Screen (NEGATIVE) Ur Phencyclidine Scrn (NEGATIVE) Ur Amphetamine Screen (NEGATIVE) U Methamphetamines Scrn (NEGATIVE) U Benzodiazepines Scrn (NEGATIVE) U Cocaine Metab Screen (NEGATIVE) U Marijuana (THC) Screen (NEGATIVE) Mycoplasma pneumon IgM Negative (NEGATIVE) 11/30/17 11/30/17 Range/Units 18:05 18:05 WBC (4.23-9.07) K/mm3 RBC (4.63-6.08) M/mm3 Hgb (13.7-17.5) gm/L Hct (40.1-51.0) % MCV (79.0-92.2) fl MCH (25.7-32.2) pg MCHC (32.2-35.5) g/dl RDW Std Deviation (35.1-43.9) fL Plt Count (163-337) K/mm3 MPV (9.4-12.3) fl Neutrophils % (Manual) (40-60) % Band Neutrophils % (0-10) % Lymphocytes % (Manual) (20-40) % Atypical Lymphs % % Monocytes % (Manual) (2-10) % Eosinophils % (Manual) (0.8-7.0) % Basophils % (Manual) (0.2-1.2) Platelet Estimate Plt Morphology Comment RBC Morph Comment PT (9.5-12.1) SECONDS INR APTT (24-31) SECONDS Sodium (136-145) mEq/L Potassium (3.5-5.1) mEq/L Chloride (98-107) mEq/L Carbon Dioxide (21-32) mEq/L Anion Gap (5-15) BUN (7-18) mg/dL Creatinine (0.7-1.3) mg/dL Est Cr Clr Drug Dosing mL/min Estimated GFR (MDRD) (>60) mL/min BUN/Creatinine Ratio (14-18) Glucose (80-115) mg/dL Lactic Acid (0.4-2.0) mmol/L Calcium (8.5-10.1) mg/dL Magnesium (1.8-2.4) mg/dl Total Bilirubin (0.2-1.0) mg/dL AST (15-37) U/L ALT (16-63) U/L Alkaline Phosphatase (46-116) U/L Troponin I (0.00-0.056) ng/mL C-Reactive Protein (<1.0) mg/dL Total Protein (6.4-8.2) g/dl Albumin (3.4-5.0) g/dl Globulin gm/dL Albumin/Globulin Ratio (1-2) TSH 3rd Generation (0.358-3.74) uIU/mL Urine Color Yellow (Yellow) Urine Appearance Clear (Clear) Urine pH 7.0 (5.0-8.0) Ur Specific [place] 1.020 (1.005-1.030) Urine Protein Negative (Negative) Urine Glucose (UA) Negative (Negative) Urine Ketones Negative (Negative) Urine Occult Blood Negative (Negative) Urine Nitrite Negative (Negative) Urine Bilirubin Negative (Negative) Urine Urobilinogen 1.0 (0.2-1.0) Ur Leukocyte Esterase Negative (Negative) Urine RBC 0-5 (0-5) /hpf Urine WBC 0-5 (0-5) /hpf Ur Epithelial Cells 0-5 (0-5) /hpf Urine Bacteria Rare (FEW) /hpf Urine Mucus Few (FEW) /hpf Urine Opiates Screen Negative (NEGATIVE) Ur Buprenorphine Scrn Negative (NEGATIVE) Ur Oxycodone Screen Presumptive positive H (NEGATIVE) Urine Methadone Screen Negative (NEGATIVE) Ur Propoxyphene Screen Negative (NEGATIVE) Ur Barbiturates Screen Negative (NEGATIVE) Ur Tricyclics Screen Negative (NEGATIVE) Ur Phencyclidine Scrn Negative (NEGATIVE) Ur Amphetamine Screen Negative (NEGATIVE) U Methamphetamines Scrn Negative (NEGATIVE) U Benzodiazepines Scrn Negative (NEGATIVE) U Cocaine Metab Screen Negative (NEGATIVE) U Marijuana (THC) Screen Negative (NEGATIVE) Mycoplasma pneumon IgM (NEGATIVE) Meds: Medications Discontinued Medications Generic Name Dose Route Start Last Admin Trade Name Freq PRN Reason Stop Dose Admin Sodium Chloride 1,000 mls @ 250 mls/hr 11/30/17 15:46 11/30/17 16:14 Normal Saline IV 11/30/17 19:45 250 mls/hr ONETIME ONE Administration - Re-Assessments/Exams Free Text/Narrative Re-Assessment/Exam: IV established with normal saline. Initial labs and studies include: CBC, chem 14, CRP, blood cultures 2, influenza screen, lactic acid, coag studies, troponin, TSH, UA, chest x-ray two- view, and EKG. Drug screen has been ordered as well. On physical examination patient has generalized weakness with no unilateral neurological symptoms. Influenza screen was negative. White blood cell count 8.84, hemoglobin 13.3, neutrophil percentage 73 with no left shift. Sodium 138, potassium 3.5, creatinine 1.0, troponin less than 0.017, CRP 1.4, TSH is low at 0.224. Lactic acid and UA are pending. 11/30/17 17:41 lactic acid 1.6. Magnesium 2.0. UA still pending. UA was negative. Urine drug tox positive for oxycodone. 1908 reassessment, patient's feeling much better. With further questioning he had mentioned that he had pain between his anus and scrotal area. States wit h wallking it rubs. We opted to perform a digital rectal exam and check the area of concern to rule out skin infection and prostatitis which came back negative. No blood present. Has no tenderness to his testicles. He does not have prostatitis. No cellulitis present. Patient was able to get out of the bed on his own accord. Steady on his feet. Unclear etiology current complaint. 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 He has appointment with Dr. Lazaro scheduled for this thursday. Return precautions discussed with the patient.I informed him to return back to the ED if he should develop any new or worsening symptoms. Patient had no further questions or concerns. Discharge instructions as documented. Departure - Departure Time of Disposition: 19:10 Disposition: Home, Self-Care 01 Condition: Good Clinical Impression: General ill feeling - Discharge Information Referrals: Candi Mancini MD [Primary Care Provider] - Forms: ED Department Discharge Additional Instructions: I do not have a clear reason why you are feeling the way you are. Chest x-ray did not reveal and findings concerning for pneumonia. Labs did not reveal any concerning findings as well. UA was negative. Please push the fluids. Keep appt with Dr. Lazaro as scheduled for this thursday. Please return to the E.D. if you develop any new or worsening symptoms.
--- NOTE | 2017-12-01 15:00 | CR ---
Chest: Portable view of the chest was obtained. Comparison: Prior chest x-ray of 10/24/16. Heart size is within normal limits for portable technique. Mild tortuosity of the thoracic aorta is seen. Mild atelectasis is noted within the lateral left costophrenic angle. Lungs otherwise are clear. Electro-stimulating device is seen within the thoracic spine. Impression: 1. Incidental findings. Nothing acute is seen. Diagnostic code #2
== END 2017-11-30 19:24 | disposition home or self-care (01) ==
LOC: JD.ED 15:05
DX: R53.1 Weakness (principal); R05 Cough; R35.0 Frequency of micturition; E03.9 Hypothyroidism, unspecified; E66.9 Obesity, unspecified; I10 Essential (primary) hypertension; I48.91 Unspecified atrial fibrillation; I25.2 Old myocardial infarction; Z87.01 Personal history of pneumonia (recurrent); Z79.899 Other long term (current) drug therapy; Z79.01 Long term (current) use of anticoagulants; Z91.040 Latex allergy status
CPT/HCPCS: 36415; 71045; 80053; 80306; 81001; 83605; 83735; 84443; 84484; 85007; 85027; 85610; 85730; 86140; 86738; 87040; 87804; 93005; 96360; 96361; 99284; J7040

== ENCOUNTER 2019-04-23 14:01 | Emergency (ER) | payer MEDICARE, BC ==
[2019-04-23 14:29] VITALS: BP 137/88; PULSE 68
--- NOTE | 2019-04-23 14:48 | EDM.PDOC ---
ED HPI GENERAL MEDICAL PROBLEM - General Chief Complaint: Respiratory Problem Stated Complaint: COUGH Time Seen by Provider: 04/23/19 14:28 Source of Information: Reports: Patient, RN Notes Reviewed - History of Present Illness INITIAL COMMENTS - FREE TEXT/NARRATIVE: 68-year-old male comes in with cough, difficulty breathing. She became ill 2-3 days ago with worsening cough, nasal and sinus congestion. Is productive of clear and colored phlegm. Chills but no definite fever. He does have history of COPD and history of pneumonia. He did get a flu shot this year. He gets much more short of breath with even minimal exertion. - Related Data Allergies Allergy/AdvReac Type Severity Reaction Status Date / Time adhesive tape Allergy Blisters Verified 09/15/18 09:19 latex Allergy Cannot Verified 09/14/18 15:29 Remember Home Meds: Home Meds Potassium Chloride [Klor-Con] 20 meq PO BID 10/06/13 [History] atorvaSTATin [Lipitor] 20 mg PO DAILY 11/17/14 [History] Finasteride [Proscar] 5 mg PO DAILY 05/16/15 [History] Tamsulosin [Flomax] 0.4 mg PO BEDTIME 05/16/15 [History] Apixaban [Eliquis] 5 mg PO BID 10/03/16 [History] Furosemide [Lasix] 80 mg PO BID 10/03/16 [History] oxyCODONE HCl/Acetaminophen [Percocet 10-325 mg Tablet] 1 tab PO Q4HR PRN [History] Doxazosin [Cardura] 4 mg PO BEDTIME 11/30/17 [History] Isosorbide Mononitrate [Isosorbide Mononitrate ER] 60 mg PO BEDTIME 11/30/17 [ History] Naloxone HCl [Narcan] 4 mg NS ASDIRECTED PRN 11/30/17 [History] Nebivolol [Bystolic] 2.5 mg PO BEDTIME 11/30/17 [History] Pregabalin [Lyrica] 150 mg PO TID 11/30/17 [History] amLODIPine Besylate [Amlodipine Besylate] 10 mg PO BEDTIME 11/30/17 [History] Aspirin [Adult Low Dose Aspirin EC] 81 mg PO DAILY 09/14/18 [History] DULoxetine HCl [Duloxetine HCl] 20 mg PO BEDTIME 09/14/18 [History] Escitalopram Oxalate 20 mg PO DAILY 09/14/18 [History] Levothyroxine 200 mcg PO DAILY 09/14/18 [History] Omeprazole 20 mg PO BID 09/14/18 [History] Oxybutynin 5 mg PO BID 09/14/18 [History] Sennosides/Docusate Sodium [Senna-Docusate Sodium Tablet] 1 tab PO BID PRN 09/14 [History] Suvorexant [Belsomra] 20 mg PO BEDTIME PRN 09/14/18 [History] Vitamin B Complex 1 tab PO BEDTIME 09/14/18 [History] Albuterol Sulfate [Proair Respiclick] 1 - 2 puff IH Q4H PRN 09/15/18 [History] Levothyroxine [Synthroid] 88 mcg PO DAILY 09/15/18 [History] Nitroglycerin [Nitrostat] 0.4 mg SL ASDIRECTED PRN 09/15/18 [History] Doxycycline [Vibramycin] 100 mg PO BID #20 tab 04/23/19 [Rx] Umeclidinium Brm/Vilanterol Tr [Anoro Ellipta 62.5-25 MCG] 1 puff INH DAILY 11/02 [History] Past Medical History HEENT History: Reports: Hard of Hearing Other HEENT History: hearing loss, R eye surgery, glasses Cardiovascular History: Reports: Afib, CAD, Heart Failure, High Cholesterol, Hypertension, GA, Stents Other Cardiovascular History: diastolic dysfunction, lower extremity edema, aflutter, aortic valve stenosis, wears glasses Respiratory History: Reports: COPD, Pneumonia, Recurrent, Sleep Apnea, Other ( See Below) Other Respiratory History: L lung nodule, dypsnea on exertion, pulmonary hypertension, bronchoscopy Gastrointestinal History: Reports: GERD, Helicobacter Pylori, Other (See Below) Other Gastrointestinal History: dysphagia, protein malnutrition, gallstomes Genitourinary History: Reports: BPH, Renal Calculus, Other (See Below) Other Genitourinary History: kidney neoplasm, uric acid nephrolithiasis, nephrectomy left 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 Musculoskeletal History: Reports: Back Pain, Chronic, Osteoarthritis Other Musculoskeletal History: spinal stenosis, shoulder apin, myofasical pain, knee pain, laminectomy, stimulator implanted Neurological History: Reports: Other (See Below) Other Neuro History: benign essential tremor, spinal stenosis, colloid cyst of brain, lumbar facet arthropathy, lumbar degenerative disc disease, spinal cord stimulator, laminectomy Psychiatric History: Reports: Other (See Below) Other Psychiatric History: insomnia Endocrine/Metabolic History: Reports: Hypothyroidism, Obesity/BMI 30+ Other Endocrine/Metabolic History: adrenal insufficiency Hematologic History: Reports: None Immunologic History: Reports: None Oncologic (Cancer) History: Reports: Thyroid, Other (See Below) Other Oncologic History: kidney cancer and thyroid cancer - Past Surgical History HEENT Surgical History: Reports: Eye Surgery, Tonsillectomy Other HEENT Surgeries/Procedures: "food gettins stuck in throat" Cardiovascular Surgical History: Reports: Coronary Artery Stent Respiratory Surgical History: Reports: None GI Surgical History: Reports: Appendectomy, Colonoscopy, EGD Male Surgical History: Reports: Nephrectomy, Vasectomy Endocrine Surgical History: Reports: Thyroidectomy Neurological Surgical History: Reports: Laminectomy, Lumbar Spine, Other (See Below) Oncologic Surgical History: Reports: Other (See Below) Other Oncologic Surgeries/Procedures: thyroidectomy Dermatological Surgical History: Reports: Other (See Below) Social & Family History - Family History Family Medical History: Noncontributory - Caffeine Use Caffeine Use: Reports: Coffee, Soda Other Caffeine Use: a couple cups coffee a day and sometimes a pop - Living Situation & Occupation Living situation: Reports: , with Spouse, Extended Care Facility Occupation: Retired ED ROS GENERAL - Review of Systems Review Of Systems: See Below Constitutional: Reports: Chills. Denies: Fever HEENT: Reports: Rhinitis, Sinus Problem (Sinus and nasal congestion), Throat Pain (Mild) Respiratory: Reports: Shortness of Breath, Wheezing, Cough, Sputum Cardiovascular: Denies: Chest Pain GI/Abdominal: Denies: Abdominal Pain, Nausea, Vomiting Musculoskeletal: Reports: Other (Generalized achiness) Skin: Denies: Rash, Erythema Neurological: Reports: Dizziness ED EXAM, GENERAL - Physical Exam Exam: See Below General Appearance: Alert, Mild Distress (Mild tachypnea noted) Eye Exam: Bilateral Eye: PERRL Throat/Mouth: Normal Inspection, Normal Oropharynx Head: Atraumatic Neck: Supple Respiratory/Chest: Respiratory Distress (Moderate tachypnea). No: Rales, Rhonchi, Wheezing Cardiovascular: Regular Rate, Rhythm GI/Abdominal: Soft, Non-Tender Extremities: Pedal Edema (Mild bilateral) Neurological: Alert, Oriented, No Motor/Sensory Deficits Skin Exam: Warm, Dry, Normal Color Course - Vital Signs Last Recorded V/S: Last Vital Signs Temp 97.8 F 04/23/19 14:28 Pulse 68 04/23/19 14:28 Resp 28 H 04/23/19 14:28 BP 137/88 04/23/19 14:28 Pulse Ox 95 04/23/19 15:49 - Orders/Labs/Meds Orders: Active Orders 24 hr Category Date Time Status RT Aerosol Therapy [RC] ASDIRECTED Care 04/23/19 15:49 Active Labs: Laboratory Tests 04/23/19 04/23/19 04/23/19 Range/Units 15:06 15:06 15:06 WBC 9.05 (4.23-9.07) K/mm3 RBC 4.09 L (4.63-6.08) M/mm3 Hgb 11.9 L (13.7-17.5) gm/dl Hct 37.1 L (40.1-51.0) % MCV 90.7 D (79.0-92.2) fl MCH 29.1 (25.7-32.2) pg MCHC 32.1 L (32.2-35.5) g/dl RDW Std Deviation 46.9 H (35.1-43.9) fL Plt Count 177 (163-337) K/mm3 MPV 10.5 (9.4-12.3) fl Neut % (Auto) 78.7 H (34.0-67.9) % Lymph % (Auto) 12.4 L (21.8-53.1) % [place] % (Auto) 8.0 (5.3-12.2) % Eos % (Auto) 0.3 L (0.8-7.0) Baso % (Auto) 0.2 (0.1-1.2) % Neut # (Auto) 7.12 H (1.78-5.38) K/mm3 Lymph # (Auto) 1.12 L (1.32-3.57) K/mm3 [place] # (Auto) 0.72 (0.30-0.82) K/mm3 Eos # (Auto) 0.03 L (0.04-0.54) K/mm3 Baso # (Auto) 0.02 (0.01-0.08) K/mm3 Sodium 140 (136-145) mEq/L Potassium 3.9 (3.5-5.1) mEq/L Chloride 105 (98-107) mEq/L Carbon Dioxide 24 (21-32) mEq/L Anion Gap 14.9 (5-15) BUN 11 (7-18) mg/dL Creatinine 1.4 H (0.7-1.3) mg/dL Est Cr Clr Drug Dosing 57.90 mL/min Estimated GFR (MDRD) 50 (>60) mL/min BUN/Creatinine Ratio 7.9 L (14-18) Glucose 139 H (80-115) mg/dL Calcium 9.6 (8.5-10.1) mg/dL Total Bilirubin 0.5 (0.2-1.0) mg/dL AST 15 (15-37) U/L ALT 19 (16-63) U/L Alkaline Phosphatase 81 (46-116) U/L C-Reactive Protein 13.6 H* (<1.0) mg/dL NT-Pro-B Natriuret Pep (0-125) pg/mL Total Protein 7.0 (6.4-8.2) g/dl Albumin 2.8 L (3.4-5.0) g/dl Globulin 4.2 gm/dL Albumin/Globulin Ratio 0.7 L (1-2) 04/23/19 Range/Units 15:06 WBC (4.23-9.07) K/mm3 RBC (4.63-6.08) M/mm3 Hgb (13.7-17.5) gm/dl Hct (40.1-51.0) % MCV (79.0-92.2) fl MCH (25.7-32.2) pg MCHC (32.2-35.5) g/dl RDW Std Deviation (35.1-43.9) fL Plt Count (163-337) K/mm3 MPV (9.4-12.3) fl Neut % (Auto) (34.0-67.9) % Lymph % (Auto) (21.8-53.1) % [place] % (Auto) (5.3-12.2) % Eos % (Auto) (0.8-7.0) Baso % (Auto) (0.1-1.2) % Neut # (Auto) (1.78-5.38) K/mm3 Lymph # (Auto) (1.32-3.57) K/mm3 [place] # (Auto) (0.30-0.82) K/mm3 Eos # (Auto) (0.04-0.54) K/mm3 Baso # (Auto) (0.01-0.08) K/mm3 Sodium (136-145) mEq/L Potassium (3.5-5.1) mEq/L Chloride (98-107) mEq/L Carbon Dioxide (21-32) mEq/L Anion Gap (5-15) BUN (7-18) mg/dL Creatinine (0.7-1.3) mg/dL Est Cr Clr Drug Dosing mL/min Estimated GFR (MDRD) (>60) mL/min BUN/Creatinine Ratio (14-18) Glucose (80-115) mg/dL Calcium (8.5-10.1) mg/dL Total Bilirubin (0.2-1.0) mg/dL AST (15-37) U/L ALT (16-63) U/L Alkaline Phosphatase (46-116) U/L C-Reactive Protein (<1.0) mg/dL NT-Pro-B Natriuret Pep 2335 H (0-125) pg/mL Total Protein (6.4-8.2) g/dl Albumin (3.4-5.0) g/dl Globulin gm/dL Albumin/Globulin Ratio (1-2) Meds: Medications Discontinued Medications Generic Name Dose Route Start Last Admin Trade Name Freq PRN Reason Stop Dose Admin Albuterol/Ipratropium 3 ml 04/23/19 15:49 04/23/19 16:26 Duoneb 3.0-0.5 Mg/3 Ml NEB 04/23/19 15:50 3 ml ONETIME ONE Administration Doxycycline Hyclate 200 mg 04/23/19 16:45 04/23/19 16:59 Vibramycin PO 04/23/19 16:46 200 mg ONETIME ONE Administration - Re-Assessments/Exams Free Text/Narrative Re-Assessment/Exam: 04/23/19 17:35 Chest x-ray shows very mild cardiomegaly, mild pulmonic congestion, no acute infiltrates. White blood count around 9000, C-reactive protein around 5. His symptoms are compatible with new onset viral illness a few days ago. His influenza screen is negative. He does not have pneumonia. He does have bronchitis with mild pulmonary congestion. Discharge instructions as documented. Departure - Departure Time of Disposition: 16:46 Disposition: Home, Self-Care 01 Condition: Fair Clinical Impression: Bronchitis - Discharge Information Prescriptions: Doxycycline [Vibramycin] 100 mg PO BID #20 tab Instructions: Upper Respiratory Infection, Adult, [id number] Referrals: Candi Mancini MD [Primary Care Provider] - Forms: ED Department Discharge Additional Instructions: Doxycycline 100 mg twice daily. You have been given an initial 200 mg loading dose while here in the ED. Take your next 100 mg dose at bedtime this evening and than continue that twice daily for 10 days or until gone. Prescription has been sent electronically the [place] [facility] the [address] [employer] [employer]. You do have some fluid congestion in her chest which is also adding to your breathing difficulties. Increased your furosemide to an extra 40mg around noon or early afternoon in addition to the 80 mg that you're taking at bedtime. Take an extra 40 mg dose for today when you arrive home and then take your usual 80 mg later this evening. Vaporizer or steam as needed. Continue to avoid salty foods. See your regular clinic provider in about 5 days for recheck, call for appointment. Return to ED as needed. Sepsis Event Note - Evaluation Sepsis Screening Result: No Definite Risk - Focused Exam Vital Signs: Vital Signs Temp Pulse Resp BP Pulse Ox Pulse Ox 04/23/19 15:49 95 04/23/19 14:28 97.8 F 68 28 H 137/88 96 Date Exam was Performed: 04/23/19 Time Exam was Performed: 17:34 - My Orders Last 24 Hours: My Active Orders 04/23/19 15:49 RT Aerosol Therapy [RC] ASDIRECTED - Assessment/Plan Last 24 Hours: My Active Orders 04/23/19 15:49 RT Aerosol Therapy [RC] ASDIRECTED
--- NOTE | 2019-04-23 15:15 | CR ---
Chest: Frontal view of the chest was obtained. Comparison: Prior chest x-ray of 11/30/17. Mild scarring is seen within the left base. Atelectasis is noted within the right lung base. Heart size is mildly enlarged. Pulmonary vessels are felt to be minimally congested. Lungs otherwise are clear. Electrode stimulating wires are seen within the thoracic spine. Impression: 1. Findings suspicious for mild CHF. Please correlate if this matches clinical symptoms. 2. Mild right basilar atelectasis and other findings believed to be incidental as noted above. Diagnostic code #3 This report was dictated in [place] Standard Time
[2019-04-23] MEDS ORDERED: Albuterol/Ipratropium 3.0-0.5 MG/3 ML Neb Soln NEB ONE (15:49)
[2019-04-23] MEDS ORDERED: Doxycycline 100 MG Cap PO ONE (16:45)
== END 2019-04-23 17:35 | disposition home or self-care (01) ==
LOC: JD.ED 14:01
DX: J40 Bronchitis, not specified as acute or chronic (principal); R60.0 Localized edema; J44.9 Chronic obstructive pulmonary disease, unspecified; I25.2 Old myocardial infarction; I25.10 Atherosclerotic heart disease of native coronary artery without angina pectoris; I11.0 Hypertensive heart disease with heart failure; I50.9 Heart failure, unspecified; E03.9 Hypothyroidism, unspecified; E78.00 Pure hypercholesterolemia, unspecified; Z79.82 Long term (current) use of aspirin; Z79.890 Hormone replacement therapy; Z79.899 Other long term (current) drug therapy; Z91.040 Latex allergy status; Z91.048 Other nonmedicinal substance allergy status; Z95.5 Presence of coronary angioplasty implant and graft
CPT/HCPCS: 36415; 71046; 80053; 83880; 85025; 86140; 87804; 94640; 99285; A9270; 99283; J7620-GY

== ENCOUNTER 2019-07-10 12:16 | Inpatient (IN) | payer MEDICARE, BC ==
--- NOTE | 2019-07-10 12:21 | EDM.PDOC ---
ED HPI GENERAL MEDICAL PROBLEM - General Chief Complaint: Chest Pain Stated Complaint: CHEST PAIN X3HR Time Seen by Provider: 07/10/19 12:21 - History of Present Illness INITIAL COMMENTS - FREE TEXT/NARRATIVE: 69-year-old male comes the emergency room with chest pain. Pain started approximately 3 hours prior to arrival here the patient tried nitro 2 times at home with no improvement. Patient has a history of coronary artery disease he had a stent placed 6 or 7 years ago at [facility] in [place]. Also he has a couple leaky valves but they have not done anything with this. Patient describes chest pain is left-sided lower chest. Patient has chronic edema according to the this is been fairly stable. He takes 2 Lasix twice a day for this. She is not absolutely certain why he was started on Eliquis but cannot recall him ever having a diagnosis of atrial fibrillation. adds that the pain started while the patient was resting sitting in a chair today. Middle Chest Pain Score (Numeric/FACES): 10 - Related Data Allergies Allergy/AdvReac Type Severity Reaction Status Date / Time adhesive tape Allergy Blisters Verified 07/10/19 12:23 latex Allergy Cannot Verified 07/10/19 12:23 Remember Home Meds: Home Meds Potassium Chloride [Klor-Con] 20 meq PO BID 10/06/13 [History] atorvaSTATin [Lipitor] 20 mg PO DAILY 11/17/14 [History] Finasteride [Proscar] 5 mg PO DAILY 05/16/15 [History] Tamsulosin [Flomax] 0.4 mg PO BEDTIME 05/16/15 [History] Apixaban [Eliquis] 5 mg PO BID 10/03/16 [History] Furosemide [Lasix] 40 mg PO BID 10/03/16 [History] oxyCODONE HCl/Acetaminophen [Percocet 10-325 mg Tablet] 1 tab PO Q4HR PRN [History] Doxazosin [Cardura] 4 mg PO BEDTIME 11/30/17 [History] Isosorbide Mononitrate [Isosorbide Mononitrate ER] 60 mg PO BEDTIME 11/30/17 [ History] Naloxone HCl [Narcan] 4 mg NS ASDIRECTED PRN 11/30/17 [History] Nebivolol [Bystolic] 2.5 mg PO BEDTIME 11/30/17 [History] Pregabalin [Lyrica] 150 mg PO TID 11/30/17 [History] amLODIPine Besylate [Amlodipine Besylate] 10 mg PO BEDTIME 11/30/17 [History] Aspirin [Adult Low Dose Aspirin EC] 81 mg PO DAILY 09/14/18 [History] Escitalopram Oxalate 20 mg PO DAILY 09/14/18 [History] Levothyroxine 275 mcg PO DAILY 09/14/18 [History] Omeprazole 20 mg PO BID 09/14/18 [History] Oxybutynin 5 mg PO BID 09/14/18 [History] Sennosides/Docusate Sodium [Senna-Docusate Sodium Tablet] 1 tab PO BID PRN 09/14 [History] Suvorexant [Belsomra] 20 mg PO BEDTIME PRN 09/14/18 [History] Vitamin B Complex 1 tab PO BEDTIME 09/14/18 [History] Albuterol Sulfate [Proair Respiclick] 1 - 2 puff IH Q4H PRN 09/15/18 [History] Nitroglycerin [Nitrostat] 0.4 mg SL ASDIRECTED PRN 09/15/18 [History] Umeclidinium Brm/Vilanterol Tr [Anoro Ellipta 62.5-25 MCG] 1 puff INH DAILY 11/02 [History] Finasteride 5 mg PO DAILY 07/10/19 [History] Pantoprazole Sodium [Protonix] 40 mg PO DAILY 07/10/19 [History] Past Medical History HEENT History: Reports: Hard of Hearing Other HEENT History: hearing loss, R eye surgery, glasses Cardiovascular History: Reports: Afib, CAD, Heart Failure, High Cholesterol, Hypertension, DE, Stents Other Cardiovascular History: diastolic dysfunction, lower extremity edema, aflutter, aortic valve stenosis, wears glasses Respiratory History: Reports: COPD, Pneumonia, Recurrent, Sleep Apnea, Other ( See Below) Other Respiratory History: L lung nodule, dypsnea on exertion, pulmonary hypertension, bronchoscopy Gastrointestinal History: Reports: GERD, Helicobacter Pylori, Other (See Below) Other Gastrointestinal History: dysphagia, protein malnutrition, gallstomes Genitourinary History: Reports: BPH, Renal Calculus, Other (See Below) Other Genitourinary History: kidney neoplasm, uric acid nephrolithiasis, nephrectomy left GATE AGENT History: Reports: None Musculoskeletal History: Reports: Back Pain, Chronic, Osteoarthritis Other Musculoskeletal History: spinal stenosis, shoulder apin, myofasical pain, knee pain, laminectomy, stimulator implanted Neurological History: Reports: Other (See Below) Other Neuro History: benign essential tremor, spinal stenosis, colloid cyst of brain, lumbar facet arthropathy, lumbar degenerative disc disease, spinal cord stimulator, laminectomy Psychiatric History: Reports: Other (See Below) Other Psychiatric History: insomnia Endocrine/Metabolic History: Reports: Hypothyroidism, Obesity/BMI 30+ Other Endocrine/Metabolic History: adrenal insufficiency Hematologic History: Reports: None Immunologic History: Reports: None Oncologic (Cancer) History: Reports: Thyroid, Other (See Below) Other Oncologic History: kidney cancer and thyroid cancer - Past Surgical History HEENT Surgical History: Reports: Eye Surgery, Tonsillectomy Other HEENT Surgeries/Procedures: "food gettins stuck in throat" Cardiovascular Surgical History: Reports: Coronary Artery Stent Respiratory Surgical History: Reports: None GI Surgical History: Reports: Appendectomy, Colonoscopy, EGD Male Surgical History: Reports: Nephrectomy, Vasectomy Endocrine Surgical History: Reports: Thyroidectomy Neurological Surgical History: Reports: Laminectomy, Lumbar Spine, Other (See Below) Oncologic Surgical History: Reports: Other (See Below) Other Oncologic Surgeries/Procedures: thyroidectomy Dermatological Surgical History: Reports: Other (See Below) Social & Family History - Family History Family Medical History: Noncontributory - Caffeine Use Caffeine Use: Reports: Coffee, Soda Other Caffeine Use: a couple cups coffee a day and sometimes a pop - Living Situation & Occupation Living situation: Reports: , with Spouse, Extended Care Facility Occupation: Retired ED ROS GENERAL - Review of Systems Review Of Systems: See Below Constitutional: Reports: No Symptoms HEENT: Reports: No Symptoms Respiratory: Reports: No Symptoms Cardiovascular: Reports: Chest Pain Endocrine: Reports: No Symptoms GI/Abdominal: Reports: Abdominal Pain. Denies: Constipation, Diarrhea, Nausea, Vomiting Musculoskeletal: Reports: No Symptoms Skin: Reports: No Symptoms Neurological: Reports: No Symptoms Psychiatric: Reports: No Symptoms ED EXAM, GENERAL - Physical Exam Exam: See Below General Appearance: Moderate Distress (He is uncomfortable and it is hard to get him comfortable) Head: Atraumatic, Normocephalic Neck: Normal Inspection, Supple, Non-Tender, Full Range of Motion Respiratory/Chest: No Respiratory Distress, Lungs Clear, Normal Breath Sounds Cardiovascular: Regular Rate, Rhythm, No Edema, No Murmur GI/Abdominal: Normal Bowel Sounds, Soft, Non-Tender, Other (He is obese with palpation cannot really elicit any tenderness cannot feel the aortic pulse) Back Exam: Normal Inspection, CVA Tenderness (R). No: CVA Tenderness (L) Extremities: Normal Inspection, Normal Range of Motion, Non-Tender Neurological: Alert, Oriented Course - Vital Signs Last Recorded V/S: Last Vital Signs Temp 37.0 C 07/11/19 11:14 Pulse 55 L 07/11/19 11:14 Resp 20 07/11/19 11:14 BP 110/81 07/11/19 11:14 Pulse Ox 93 L 07/11/19 11:14 - Orders/Labs/Meds Orders: Active Orders 24 hr Category Date Time Status Sodium Chloride 0.9% [Saline Flush] Med 07/10/19 13:11 Active 10 ml FLUSH ONETIME PRN EKG 12 Lead [EK] Stat Ther 07/10/19 12:28 Ordered Medication Orders Acetaminophen (Tylenol) 650 mg PO Q6H PRN PRN Reason: Pain (Mild 1-3) or Fever Acetaminophen (Tylenol) 650 mg RECTAL Q6H PRN PRN Reason: Pain (Mild 1-3) or Fever Hydrocodone Bitart/Acetaminophen (Brutus 325-5 Mg) 2 tab PO Q4H PRN PRN Reason: Pain Last Admin: 07/11/19 11:18 Dose: 2 tab Admin: 07/11/19 05:55 Dose: 2 tab Admin: 07/10/19 22:21 Dose: 2 tab Admin: 07/10/19 18:36 Dose: 2 tab Albuterol/Ipratropium (Duoneb 3.0-0.5 Mg/3 Ml) 3 ml NEB Q6HRRT PRN PRN Reason: Shortness of Breath Apixaban (Eliquis) 5 mg PO BID [facility] Last Admin: 07/11/19 08:56 Dose: 5 mg Admin: 07/10/19 22:19 Dose: 5 mg Aspirin (Halfprin) 81 mg PO DAILY [facility] Last Admin: 07/11/19 08:54 Dose: 81 mg Carvedilol (Coreg) 3.125 mg PO BID [facility] Last Admin: 07/11/19 08:54 Dose: 3.125 mg Admin: 07/10/19 22:21 Dose: 3.125 mg Citalopram Hydrobromide (Celexa) 40 mg PO DAILY [facility] Last Admin: 07/11/19 08:53 Dose: 40 mg Diphenhydramine HCl (Benadryl) 25 mg IVPUSH Q4H PRN PRN Reason: Restlessness or Allergies Doxazosin Mesylate (Cardura) 4 mg PO BEDTIME [facility] Last Admin: 07/10/19 22:19 Dose: 4 mg Finasteride (Proscar) 5 mg PO DAILY [facility] Last Admin: 07/11/19 08:55 Dose: 5 mg Hydralazine HCl (Apresoline) 10 mg IVPUSH Q6H PRN PRN Reason: Hypertension Furosemide 100 mg/ Sodium (Chloride) 100 mls @ 3 mls/hr IV CONTINUOUS [facility]; Protocol Last Admin: 07/10/19 18:35 Dose: 5 mls/hr Isosorbide Mononitrate (Imdur) 60 mg PO BEDTIME [facility] Last Admin: 07/10/19 22:20 Dose: 60 mg Levothyroxine Sodium (Levothyroxine) 200 mcg PO ACBREAKFAST [facility] Last Admin: 07/11/19 05:54 Dose: 200 mcg Levothyroxine Sodium (Levothyroxine) 75 mcg PO ACBREAKFAST [facility] Last Admin: 07/11/19 05:54 Dose: 75 mcg Miscellaneous Information (Remove Patch) 1 ea TRDERM DAILY [facility] Last Admin: 07/11/19 08:57 Dose: 1 ea Morphine Sulfate (Morphine) 2 mg IVPUSH Q4H PRN PRN Reason: Pain (severe 7-10) Nicotine (Habitrol) 14 mg TRDERM DAILY [facility] Last Admin: 07/11/19 08:56 Dose: 14 mg Admin: 07/10/19 18:02 Dose: 14 mg Nitroglycerin (Nitrostat) 0.4 mg SL Q5M PRN PRN Reason: Chest Pain Suvorexant [Belsomra (] 20 Mg Ptom) 20 mg PO BEDTIME PRN PRN Reason: Insomnia Ondansetron HCl (Zofran) 4 mg IVPUSH Q4H PRN PRN Reason: Nausea and Vomiting Pantoprazole Sodium (Protonix) 40 mg PO BIDAC [facility] Last Admin: 07/11/19 05:55 Dose: 40 mg Admin: 07/10/19 18:02 Dose: 40 mg Polyethylene Glycol (Miralax) 17 gm PO DAILY [facility] Last Admin: 07/11/19 08:52 Dose: 17 gm Pregabalin (Lyrica) 150 mg PO TID [facility] Last Admin: 07/11/19 08:53 Dose: 150 mg Admin: 07/10/19 22:20 Dose: 150 mg Senna/Docusate Sodium (Senna Plus) 2 tab PO BID [facility] Last Admin: 07/11/19 08:55 Dose: 2 tab Admin: 07/10/19 22:21 Dose: 2 tab Simvastatin (Zocor) 20 mg PO DAILY [facility] Last Admin: 07/11/19 08:56 Dose: 20 mg Sodium Chloride (Saline Flush) 10 ml FLUSH ONETIME PRN PRN Reason: IV Flush Last Admin: 07/10/19 13:13 Dose: 10 ml Sucralfate (Carafate) 2 gm PO BEDTIME [facility] Last Admin: 07/10/19 21:22 Dose: Tamsulosin HCl (Flomax) 0.4 mg PO BEDTIME [facility] Last Admin: 07/10/19 22:20 Dose: 0.4 mg Vitamin B Complex/Vitamin C (Super B With Vitamin C) 1 cap PO BEDTIME [facility] Last Admin: 07/10/19 22:19 Dose: 1 cap Labs: Laboratory Tests 07/10/19 07/10/19 07/10/19 Range/Units 12:30 12:30 12:30 WBC 9.79 H (4.23-9.07) K/mm3 RBC 4.52 L (4.63-6.08) M/mm3 Hgb 13.3 L (13.7-17.5) gm/dl Hct 40.6 (40.1-51.0) % MCV 89.8 (79.0-92.2) fl MCH 29.4 (25.7-32.2) pg MCHC 32.8 (32.2-35.5) g/dl RDW Std Deviation 48.2 H (35.1-43.9) fL Plt Count 168 (163-337) K/mm3 MPV 10.7 (9.4-12.3) fl Neut % (Auto) 73.5 H (34.0-67.9) % Lymph % (Auto) 15.7 L (21.8-53.1) % [place] % (Auto) 8.2 (5.3-12.2) % Eos % (Auto) 1.9 (0.8-7.0) Baso % (Auto) 0.5 (0.1-1.2) % Neut # (Auto) 7.19 H (1.78-5.38) K/mm3 Lymph # (Auto) 1.54 (1.32-3.57) K/mm3 [place] # (Auto) 0.80 (0.30-0.82) K/mm3 Eos # (Auto) 0.19 (0.04-0.54) K/mm3 Baso # (Auto) 0.05 (0.01-0.08) K/mm3 PT 9.7 (9.7-12.0) SECONDS INR 0.93 APTT 28 (22-31) SECONDS Sodium 143 (136-145) mEq/L Potassium 4.0 (3.5-5.1) mEq/L Chloride 106 (98-107) mEq/L Carbon Dioxide 26 (21-32) mEq/L Anion Gap 15.0 (5-15) BUN 9 (7-18) mg/dL Creatinine 1.0 (0.7-1.3) mg/dL Est Cr Clr Drug Dosing 79.92 mL/min Estimated GFR (MDRD) > 60 (>60) mL/min BUN/Creatinine Ratio 9.0 L (14-18) Glucose 109 (80-115) mg/dL Calcium 10.0 (8.5-10.1) mg/dL Total Bilirubin 0.3 (0.2-1.0) mg/dL AST 12 L (15-37) U/L ALT 16 (16-63) U/L Alkaline Phosphatase 110 (46-116) U/L Troponin I 0.032 (0.00-0.056) ng/mL Total Protein 7.1 (6.4-8.2) g/dl Albumin 3.3 L (3.4-5.0) g/dl Globulin 3.8 gm/dL Albumin/Globulin Ratio 0.9 L (1-2) Meds: Medications Generic Name Dose Route Start Last Admin Trade Name Freq PRN Reason Stop Dose Admin Acetaminophen 650 mg 07/10/19 15:48 Tylenol PO Q6H PRN Pain (Mild 1-3) or Fever Acetaminophen 650 mg 07/10/19 15:48 Tylenol RECTAL Q6H PRN Pain (Mild 1-3) or Fever Hydrocodone Bitart/Acetaminophen 2 tab 07/10/19 18:27 07/11/19 11:18 Brutus 325-5 Mg PO 2 tab Q4H PRN Administration Pain Albuterol/Ipratropium 3 ml 07/10/19 15:48 Duoneb 3.0-0.5 Mg/3 Ml NEB Q6HRRT PRN Shortness of Breath Apixaban 5 mg 07/10/19 21:00 07/11/19 08:56 Eliquis PO 5 mg BID [facility] Administration Aspirin 81 mg 07/11/19 09:00 07/11/19 08:54 Halfprin PO 81 mg DAILY [facility] Administration Carvedilol 3.125 mg 07/10/19 21:00 07/11/19 08:54 Coreg PO 3.125 mg BID [facility] Administration Citalopram Hydrobromide 40 mg 07/11/19 09:00 07/11/19 08:53 Celexa PO 40 mg DAILY [facility] Administration Diphenhydramine HCl 25 mg 07/10/19 15:48 Benadryl IVPUSH Q4H PRN Restlessness or Allergies Doxazosin Mesylate 4 mg 07/10/19 21:00 07/10/19 22:19 Cardura PO 4 mg BEDTIME [facility] Administration Finasteride 5 mg 07/11/19 09:00 07/11/19 08:55 Proscar PO 5 mg DAILY [facility] Administration Hydralazine HCl 10 mg 07/10/19 15:48 Apresoline IVPUSH Q6H PRN Hypertension Furosemide 100 mg/ Sodium 100 mls @ 3 mls/hr 07/10/19 18:30 07/10/19 18:35 Chloride IV 5 mls/hr CONTINUOUS [facility] Administration Protocol Isosorbide Mononitrate 60 mg 07/10/19 21:00 07/10/19 22:20 Imdur PO 60 mg BEDTIME [facility] Administration Levothyroxine Sodium 200 mcg 07/11/19 06:00 07/11/19 05:54 Levothyroxine PO 200 mcg ACBREAKFAST [facility] Administration Levothyroxine Sodium 75 mcg 07/11/19 06:00 07/11/19 05:54 Levothyroxine PO 75 mcg ACBREAKFAST [facility] Administration Miscellaneous Information 1 ea 07/11/19 09:00 07/11/19 08:57 Remove Patch TRDERM 1 ea DAILY [facility] Administration Morphine Sulfate 2 mg 07/10/19 15:48 Morphine IVPUSH Q4H PRN Pain (severe 7-10) Nicotine 14 mg 07/10/19 16:00 07/11/19 08:56 Habitrol TRDERM 14 mg DAILY [facility] Administration Nitroglycerin 0.4 mg 07/10/19 15:48 Nitrostat SL Q5M PRN Chest Pain Suvorexant [Belsomra 20 mg 07/10/19 15:44 ] 20 Mg Ptom PO BEDTIME PRN Insomnia Ondansetron HCl 4 mg 07/10/19 15:48 Zofran IVPUSH Q4H PRN Nausea and Vomiting Pantoprazole Sodium 40 mg 07/10/19 16:00 07/11/19 05:55 Protonix PO 40 mg BIDAC [facility] Administration Polyethylene Glycol 17 gm 07/11/19 09:00 07/11/19 08:52 Miralax PO 17 gm DAILY [facility] Administration Pregabalin 150 mg 07/10/19 21:00 07/11/19 08:53 Lyrica PO 150 mg TID [facility] Administration Senna/Docusate Sodium 2 tab 07/10/19 21:00 07/11/19 08:55 Senna Plus PO 2 tab BID [facility] Administration Simvastatin 20 mg 07/11/19 09:00 07/11/19 08:56 Zocor PO 20 mg DAILY [facility] Administration Sodium Chloride 10 ml 07/10/19 13:11 07/10/19 13:13 Saline Flush FLUSH 10 ml ONETIME PRN Administration IV Flush Sucralfate 2 gm 07/10/19 21:00 07/10/19 21:22 Carafate PO Not Given BEDTIME [facility] Tamsulosin HCl 0.4 mg 07/10/19 21:00 07/10/19 22:20 Flomax PO 0.4 mg BEDTIME [facility] Administration Vitamin B Complex/Vitamin C 1 cap 07/10/19 21:00 07/10/19 22:19 Super B With Vitamin C PO 1 cap BEDTIME [facility] Administration Discontinued Medications Generic Name Dose Route Start Last Admin Trade Name Freq PRN Reason Stop Dose Admin Hydrocodone Bitart/Acetaminophen 1 tab 07/10/19 15:48 Brutus 325-5 Mg PO Q6H PRN Pain (moderate 4-6) Aspirin 324 mg 07/10/19 12:32 07/10/19 12:35 Aspirin PO 07/10/19 12:33 324 mg ONETIME ONE Administration Finasteride 5 mg 07/11/19 09:00 Proscar PO DAILY [facility] Furosemide 40 mg 07/10/19 15:48 07/10/19 18:07 Lasix IVPUSH 07/10/19 15:49 40 mg ONETIME ONE Administration Sodium Chloride 60 mls @ 4 mls/sec 07/10/19 13:11 07/10/19 13:13 Normal Saline IV 07/10/19 13:12 4 mls/sec ONETIME ONE Administration Furosemide 100 mg/ Sodium 100 mls @ 5 mls/hr 07/10/19 16:00 Chloride IV CONTINUOUS [facility] Protocol Magnesium Sulfate/Dextrose 1 100 mls @ 100 mls/hr 07/10/19 16:00 07/10/19 20: 34 gm/ Premix IV 07/10/19 19:59 100 mls/hr Q1H [facility] Administration Iopamidol 100 ml 07/10/19 13:11 07/10/19 13:13 Isovue-370 (76%) IVPUSH 07/10/19 13:12 100 ml ONETIME ONE Administration Nitroglycerin 0.4 mg 07/10/19 12:36 07/10/19 12:45 Nitrostat SL 0.4 mg Q5M PRN Administration Chest Pain Non-Formulary Medication 1 tab 07/10/19 15:44 Oxycodone Hcl/Acetaminophen PO Q4HR PRN Pain Potassium Chloride 40 meq 07/11/19 12:33 Klor-Con M20 PO 07/11/19 12:34 ONETIME ONE Trazodone HCl 50 mg 07/10/19 22:38 Trazodone PO ONETIME PRN Insomnia - Re-Assessments/Exams Free Text/Narrative Re-Assessment/Exam: 07/10/19 14:13 The patient was very uncomfortable when he got here and it took us a while to get him to calm down. Ultimately to nitro here did relieve his pain but he did have a CTA done of his chest and abdomen looking at his aorta he was at uncomfortable when he got in here with pain shooting into his back and between his shoulder blades. His aortic study was a suboptimal study however no gross evidence of dissection or aneurysm noted he is got extensive coronary artery calcification seen. 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 I discussed this with , our hospitalist, who will evaluate the patient for further care Departure - Departure Time of Disposition: 14:15 Disposition: Admitted As Inpatient 65 Clinical Impression: Chest pain Sepsis Event Note - Focused Exam Date Exam was Performed: 07/11/19 Time Exam was Performed: 13:11 - My Orders Last 24 Hours: My Active Orders 07/10/19 12:28 EKG 12 Lead [EK] Stat 07/10/19 13:11 Sodium Chloride 0.9% [Saline Flush] 10 ml FLUSH ONETIME PRN - Assessment/Plan Last 24 Hours: My Active Orders 07/10/19 12:28 EKG 12 Lead [EK] Stat 07/10/19 13:11 Sodium Chloride 0.9% [Saline Flush] 10 ml FLUSH ONETIME PRN
[2019-07-10] MEDS ORDERED: Aspirin 81 MG Tab.Chew PO ONE (12:32)
[2019-07-10] MEDS: Nitroglycerin 0.4 MG Tab.SL SL PRN ×2 (12:39→12:45)
[2019-07-10] MEDS ORDERED: Iopamidol 755 Mg/ML 100 ML Bottle IVPUSH ONE (13:11)
[2019-07-10] MEDS ORDERED: Sodium Chloride 0.9% 60 ML IV ONE (13:11)
[2019-07-10] MEDS ORDERED: Sodium Chloride 0.9% 10 ML Syringe FLUSH PRN (13:11)
--- NOTE | 2019-07-10 13:52 | CT ---
CT chest Technique: Multiple axial sections were obtained from above the lung apices inferiorly through the lung bases. Intravenous contrast was utilized. Poor opacification of the aorta is noted. Comparison: Prior chest CT study of 10/03/16. Aorta shows no aneurysm. No gross findings of dissection are seen. Atherosclerotic calcification is noted. Pulmonary artery is not opacified well enough to make any comment about pulmonary embolism. Extensive coronary artery calcification is seen. No pericardial thickening is identified. Lungs show no acute parenchymal change. Small nodule noted within the left lung base measuring 5.5 mm. No additional nodule is appreciated. No acute parenchymal change is noted. No pleural effusions are seen. Heart is mildly enlarged. Bone window settings were reviewed which shows scattered degenerative change within the spine. Electro-stimulating wires are seen within this thoracic canal. No acute osseous finding is appreciated. Impression: 1. Suboptimal opacification of the aorta. No gross findings of dissection is seen. No thoracic aortic aneurysm is seen. Mild atherosclerotic calcification is noted. 2. Extensive coronary artery calcification is seen. 3. 5.5 mm nodule within the left lung base. This finding is believed to be stable and therefore of benign etiology. 4. No acute abnormality is appreciated. Diagnostic code #3 CT abdomen and pelvis Technique: Multiple axial sections were obtained from above the dome of the diaphragm inferiorly through the pubic symphysis. Intravenous contrast was utilized. No oral contrast has been given. Comparison: Previous CT abdomen and pelvis exam of 10/03/16. Findings: Low density lesion noted within the inferior right lobe of the liver measuring 1.2 cm which has Hounsfield unit measurements of a cyst. No additional abnormality is seen within the liver. Spleen appears within normal limits. Adrenal glands show no nodule. Pancreas shows no discrete abnormality. Gallbladder contains no discrete gallstones. Several gallstones are noted on prior study. Gallbladder wall appears slightly hazy and difficult to exclude gallbladder inflammatory change. Aorta shows no aneurysm. Atherosclerotic calcification is seen. No gross findings of dissection are seen. Cysts are noted within the right kidney which are believed to be stable. Absent left kidney is noted with surgical clips from prior nephrectomy being seen. No retroperitoneal adenopathy is seen. No mesenteric abnormalities are seen. No pelvic mass or adenopathy is appreciated. Appendix not visualized with certainty. Degenerative change is noted throughout the spine. Previous lower lumbar spine surgery is noted. Mild scoliosis is seen. Impression: 1. Haziness of the gallbladder wall and difficult to exclude inflammatory change. Ultrasound could be obtained to further evaluate. 2. Aorta shows atherosclerotic change without aneurysm or gross dissection. 3. Prior left nephrectomy and other findings as noted above which are nonacute. Diagnostic code #3 This report was dictated in MDT
--- NOTE | 2019-07-10 14:02 | CR ---
Chest: Portable view of the chest was obtained. Comparison: Prior chest x-ray of 11/30/17. Heart size is slightly enlarged. Pulmonary vessels are felt to be mildly congested. Lungs otherwise are clear. Bony structures are grossly intact. Electro-stimulating wires are partially visualized within the thoracic spine. Impression: 1. Findings suspicious for mild CHF. 2. No other acute finding is appreciated. Diagnostic code #3 This report was dictated in MDT
[2019-07-10] MEDS ORDERED: SUVOREXANT 20 MG PO PRN (15:44)
[2019-07-10] MEDS ORDERED: OXYCODONE HCL PO PRN (15:44)
[2019-07-10] MEDS ORDERED: ACETAMINOPHEN PO PRN (15:44)
[2019-07-10] MEDS ORDERED: Ondansetron 4 MG/2 ML SDV IVPUSH PRN (15:48)
[2019-07-10] MEDS ORDERED: Albuterol/Ipratropium 3.0-0.5 MG/3 ML Neb Soln NEB PRN (15:48)
[2019-07-10] MEDS ORDERED: Furosemide 40 MG/4 ML VIAL IVPUSH ONE (15:48)
[2019-07-10] MEDS ORDERED: Acetaminophen 325 MG Tab PO PRN (15:48)
[2019-07-10] MEDS ORDERED: Nitroglycerin 0.4 MG Tab.SL SL PRN (15:48)
[2019-07-10] MEDS ORDERED: diphenhydrAMINE 50 MG/ML SDV IVPUSH PRN (15:48)
[2019-07-10] MEDS ORDERED: Acetaminophen/HYDROcodone 325-5 MG Tab PO PRN (15:48)
[2019-07-10] MEDS ORDERED: Morphine 2 MG/ML Syringe IVPUSH PRN (15:48)
[2019-07-10] MEDS ORDERED: Acetaminophen 650 MG Supp RECTAL PRN (15:48)
[2019-07-10] MEDS ORDERED: hydrALAZINE 20 MG/ML SDV IVPUSH PRN (15:48)
[2019-07-10] MEDS ORDERED: Furosemide 100 MG in Sodium Chloride 0.9% 90 ML IV SCH (16:00)
--- NOTE | 2019-07-10 16:15 | PCM.HP.2 ---
H&P History of Present Illness - General Date of Service: 07/10/19 Admit Problem/Dx: Admission Diagnosis/Problem Admission Diagnosis/Problem Chest pain - History of Present Illness Other HPI/Comments: Mr. Quarles is a pleasant 69-year-old male, with past medical history significant for obstructive sleep apnea on CPAP overnight, history of paroxysmal atrial fibrillation anticoagulated with Eliquis, history of CAD status post 1 stent placement, hypertension, dyslipidemia, chronic pain syndrome , BPH, gastroesophageal reflux disease, nicotine dependence and hypothyroidism. Patient presented today in the ED for evaluation of chest pain. The patient reported he was in his usual state of health, when approximately around 9 AM this morning, he started having what he describes as mid sternal chest discomfort with radiation to the left chest and back. Initially thought nothing of this but per the patient pain persisted. Took nitroglycerin x2 at home without significant improvement so patient decided to come to the ED for further evaluation. On presentation in the ED, patient still appeared to be in moderate distress. Patient was given 2 nitroglycerin along with aspirin which did help relieve the patient's symptoms. Patient denied any diaphoresis, nausea or vomiting. Denies any lightheadedness. But also reported increased swelling in both lower extremities. Initial cardiac enzymes and EKG that was done to the patient in the ED not concerning for acute ischemia. Labs indicated WBC 9.7 H&H 13.3/40.6, platelets 108 sodium/potassium 143/4.0, chloride 106 CO2 26 BUN/creatinine 9/1.0 random glucose 101. On physical exam, patient noted with 3+ pitting edema bilaterally, diminished breath sounds. Given this presentation, patient will be admitted with chief complaint chest pain rule out ND, acute on chronic CHF exacerbation for further work-up and management. Middle Chest Pain Score (Numeric/FACES): 10 - Related Data Allergies/Adverse Reactions: Allergies Allergy/AdvReac Type Severity Reaction Status Date / Time adhesive tape Allergy Blisters Verified 07/10/19 12:23 latex Allergy Cannot Verified 07/10/19 12:23 Remember Home Medications: Home Meds Potassium Chloride [Klor-Con] 20 meq PO BID 10/06/13 [History] atorvaSTATin [Lipitor] 20 mg PO DAILY 11/17/14 [History] Finasteride [Proscar] 5 mg PO DAILY 05/16/15 [History] Tamsulosin [Flomax] 0.4 mg PO BEDTIME 05/16/15 [History] Apixaban [Eliquis] 5 mg PO BID 10/03/16 [History] Furosemide [Lasix] 40 mg PO BID 10/03/16 [History] oxyCODONE HCl/Acetaminophen [Percocet 10-325 mg Tablet] 1 tab PO Q4HR PRN [History] Doxazosin [Cardura] 4 mg PO BEDTIME 11/30/17 [History] Isosorbide Mononitrate [Isosorbide Mononitrate ER] 60 mg PO BEDTIME 11/30/17 [ History] Naloxone HCl [Narcan] 4 mg NS ASDIRECTED PRN 11/30/17 [History] Nebivolol [Bystolic] 2.5 mg PO BEDTIME 11/30/17 [History] Pregabalin [Lyrica] 150 mg PO TID 11/30/17 [History] amLODIPine Besylate [Amlodipine Besylate] 10 mg PO BEDTIME 11/30/17 [History] Aspirin [Adult Low Dose Aspirin EC] 81 mg PO DAILY 09/14/18 [History] Escitalopram Oxalate 20 mg PO DAILY 09/14/18 [History] Levothyroxine 275 mcg PO DAILY 09/14/18 [History] Omeprazole 20 mg PO BID 09/14/18 [History] Oxybutynin 5 mg PO BID 09/14/18 [History] Sennosides/Docusate Sodium [Senna-Docusate Sodium Tablet] 1 tab PO BID PRN 09/14 [History] Suvorexant [Belsomra] 20 mg PO BEDTIME PRN 09/14/18 [History] Vitamin B Complex 1 tab PO BEDTIME 09/14/18 [History] Albuterol Sulfate [Proair Respiclick] 1 - 2 puff IH Q4H PRN 09/15/18 [History] Nitroglycerin [Nitrostat] 0.4 mg SL ASDIRECTED PRN 09/15/18 [History] Umeclidinium Brm/Vilanterol Tr [Anoro Ellipta 62.5-25 MCG] 1 puff INH DAILY 11/02 [History] Finasteride 5 mg PO DAILY 07/10/19 [History] Pantoprazole Sodium [Protonix] 40 mg PO DAILY 07/10/19 [History] Past Medical History HEENT History: Reports: Hard of Hearing Other HEENT History: hearing loss, R eye surgery, glasses Cardiovascular History: Reports: Afib, CAD, Heart Failure, High Cholesterol, Hypertension, ND, Stents Other Cardiovascular History: diastolic dysfunction, lower extremity edema, aflutter, aortic valve stenosis, wears glasses Respiratory History: Reports: COPD, Pneumonia, Recurrent, Sleep Apnea, Other ( See Below) Other Respiratory History: L lung nodule, dypsnea on exertion, pulmonary hypertension, bronchoscopy Gastrointestinal History: Reports: GERD, Helicobacter Pylori, Other (See Below) Other Gastrointestinal History: dysphagia, protein malnutrition, gallstomes Genitourinary History: Reports: BPH, Renal Calculus, Other (See Below) Other Genitourinary History: kidney neoplasm, uric acid nephrolithiasis, nephrectomy left PHARMACY CLERK History: Reports: None Musculoskeletal History: Reports: Back Pain, Chronic, Osteoarthritis Other Musculoskeletal History: spinal stenosis, shoulder apin, myofasical pain, knee pain, laminectomy, stimulator implanted Neurological History: Reports: Other (See Below) Other Neuro History: benign essential tremor, spinal stenosis, colloid cyst of brain, lumbar facet arthropathy, lumbar degenerative disc disease, spinal cord stimulator, laminectomy Psychiatric History: Reports: Other (See Below) Other Psychiatric History: insomnia Endocrine/Metabolic History: Reports: Hypothyroidism, Obesity/BMI 30+ Other Endocrine/Metabolic History: adrenal insufficiency Hematologic History: Reports: None Immunologic History: Reports: None Oncologic (Cancer) History: Reports: Thyroid, Other (See Below) Other Oncologic History: kidney cancer and thyroid cancer - Past Surgical History HEENT Surgical History: Reports: Eye Surgery, Tonsillectomy Other HEENT Surgeries/Procedures: "food gettins stuck in throat" Cardiovascular Surgical History: Reports: Coronary Artery Stent Respiratory Surgical History: Reports: None GI Surgical History: Reports: Appendectomy, Colonoscopy, EGD Male Surgical History: Reports: Nephrectomy, Vasectomy Endocrine Surgical History: Reports: Thyroidectomy Neurological Surgical History: Reports: Laminectomy, Lumbar Spine, Other (See Below) Oncologic Surgical History: Reports: Other (See Below) Other Oncologic Surgeries/Procedures: thyroidectomy Dermatological Surgical History: Reports: Other (See Below) Social & Family History - Family History Family Medical History: Noncontributory - Tobacco Use Smoking Status *Q: Current Every Day Smoker Years of Tobacco use: 55 Packs/Tins Daily: 0.5 - Caffeine Use Caffeine Use: Reports: Coffee, Soda Other Caffeine Use: a couple cups coffee a day and sometimes a pop - Recreational Drug Use Recreational Drug Use: No - Living Situation & Occupation Living situation: Reports: , with Spouse, Extended Care Facility Occupation: Retired H&P Review of Systems - Review of Systems: Review Of Systems: See Below General: Reports: No Symptoms HEENT: Reports: No Symptoms Pulmonary: Reports: Shortness of Breath, Pleuritic Chest Pain Cardiovascular: Reports: Chest Pain, Orthopnea, Edema Gastrointestinal: Reports: No Symptoms Skin: Reports: No Symptoms Hematologic/Lymphatic: Reports: No Symptoms Immunologic: Reports: No Symptoms Exam - Exam Exam: See Below - Vital Signs Vital Signs: Last Vital Signs Temp 97.1 F 07/10/19 12:21 Pulse 60 07/10/19 12:21 Resp 16 07/10/19 12:21 BP 129/56 L 07/10/19 12:45 Pulse Ox 97 07/10/19 12:21 Weight: 280 lb - Exam General: Alert, Oriented, Cooperative, Moderate Distress HEENT: Conjunctiva Clear, EOMI, Hearing Intact, Mucosa Moist & [place], Posterior Pharynx Clear, Pupils Equal, Pupils Reactive Neck: Supple, Trachea Midline, JVD (4+) Lungs: Decreased Breath Sounds, Crackles, Rales Cardiovascular: Regular Rate, Regular Rhythm, Systolic Murmur GI/Abdominal Exam: Normal Bowel Sounds, Soft, Non-Tender, No Organomegaly, No Distention Back Exam: Normal Inspection, Full Range of Motion Extremities: Pedal Edema Skin: Warm, Dry, Intact Neurological: Cranial Nerves Intact, Reflexes Equal Bilateral Neuro Extensive - Mental Status: Alert, Oriented x3, Normal Mood/Affect, Normal Cognition Psychiatric: Alert, Normal Affect, Normal Mood - Patient Data Lab Results Last 24 hrs: Laboratory Results - last 24 hr 07/10/19 07/10/19 07/10/19 Range/Units 12:30 12:30 12:30 WBC 9.79 H (4.23-9.07) K/mm3 RBC 4.52 L (4.63-6.08) M/mm3 Hgb 13.3 L (13.7-17.5) gm/dl Hct 40.6 (40.1-51.0) % MCV 89.8 (79.0-92.2) fl MCH 29.4 (25.7-32.2) pg MCHC 32.8 (32.2-35.5) g/dl RDW Std Deviation 48.2 H (35.1-43.9) fL Plt Count 168 (163-337) K/mm3 MPV 10.7 (9.4-12.3) fl Neut % (Auto) 73.5 H (34.0-67.9) % Lymph % (Auto) 15.7 L (21.8-53.1) % [place] % (Auto) 8.2 (5.3-12.2) % Eos % (Auto) 1.9 (0.8-7.0) Baso % (Auto) 0.5 (0.1-1.2) % Neut # (Auto) 7.19 H (1.78-5.38) K/mm3 Lymph # (Auto) 1.54 (1.32-3.57) K/mm3 [place] # (Auto) 0.80 (0.30-0.82) K/mm3 Eos # (Auto) 0.19 (0.04-0.54) K/mm3 Baso # (Auto) 0.05 (0.01-0.08) K/mm3 PT 9.7 (9.7-12.0) SECONDS INR 0.93 APTT 28 (22-31) SECONDS Sodium 143 (136-145) mEq/L Potassium 4.0 (3.5-5.1) mEq/L Chloride 106 (98-107) mEq/L Carbon Dioxide 26 (21-32) mEq/L Anion Gap 15.0 (5-15) BUN 9 (7-18) mg/dL Creatinine 1.0 (0.7-1.3) mg/dL Est Cr Clr Drug Dosing 79.92 mL/min Estimated GFR (MDRD) > 60 (>60) mL/min BUN/Creatinine Ratio 9.0 L (14-18) Glucose 109 (80-115) mg/dL Calcium 10.0 (8.5-10.1) mg/dL Total Bilirubin 0.3 (0.2-1.0) mg/dL AST 12 L (15-37) U/L ALT 16 (16-63) U/L Alkaline Phosphatase 110 (46-116) U/L Troponin I 0.032 (0.00-0.056) ng/mL Total Protein 7.1 (6.4-8.2) g/dl Albumin 3.3 L (3.4-5.0) g/dl Globulin 3.8 gm/dL Albumin/Globulin Ratio 0.9 L (1-2) Result Diagrams: 07/10/19 12:30 07/10/19 12:30 Sepsis Event Note - Evaluation Sepsis Screening Result: No Definite Risk - Focused Exam Vital Signs: Vital Signs Temp Pulse Resp BP BP Pulse Ox 07/10/19 12:45 129/56 L 07/10/19 12:39 136/91 H 07/10/19 12:21 97.1 F 60 16 138/107 H 97 Date Exam was Performed: 07/10/19 Time Exam was Performed: 16:10 Problem List Initiated/Reviewed/Updated: Yes Orders Last 24hrs: Active Orders 24 hr Category Date Time Status Admission Status [Patient Status] [ADT] Routine ADT 07/10/19 15:15 Active Patient Status [ADT] Routine ADT 07/10/19 15:48 Ordered Antiembolic Devices [RC] PER UNIT ROUTINE Care 07/10/19 15:50 Ordered Cardiac Monitoring [RC] CONTINUOUS Care 07/10/19 15:48 Ordered Communication Order [RC] ASDIRECTED Care 07/10/19 15:48 Ordered Communication Order [RC] PRN Care 07/10/19 15:48 Ordered EKG Documentation Completion [RC] ASDIRECTED Care 07/10/19 12:28 Active EKG Documentation Completion [RC] ROUTINE Care 07/11/19 08:00 Ordered Enema [RC] Q2D Care 07/10/19 15:48 Ordered Head of Bed Elevation [RC] ASDIRECTED Care 07/10/19 15:48 Ordered Height and Weight [RC] DAILY Care 07/10/19 15:48 Ordered Insert Urinary Catheter [OM.PC] Stat Care 07/10/19 15:48 Ordered Intake and Output Strict [RC] Q6H Care 07/10/19 15:48 Ordered Notify Provider Vital Signs [RC] ASDIRECTED Care 07/10/19 15:48 Ordered Notify Provider [RC] PRN Care 07/10/19 15:48 Ordered Oxygen Therapy [RC] ASDIRECTED Care 07/10/19 15:48 Ordered Up to Chair [RC] ASDIRECTED Care 07/10/19 15:48 Ordered Urinary Catheter Assessment [RC] ASDIRECTED Care 07/10/19 15:50 Ordered Vital Signs [RC] PER UNIT ROUTINE Care 07/10/19 15:48 Ordered OT Evaluation and Treatment [CONS] Routine Cons 07/10/19 15:48 Ordered PT Evaluation and Treatment [CONS] Routine Cons 07/10/19 15:48 Ordered 2 Gram Sodium Diet [DIET] Diet 07/10/19 Breakfast Ordered Abdomen Pelvis w Cont [CT] AM Exams 07/11/19 05:11 Ordered Chest wo Cont [CT] Routine Exams 07/11/19 08:00 Ordered Echo Comp wo Cont [US] AM Exams 07/12/19 05:11 Ordered CBC WITH AUTO DIFF [HEME] AM Lab 07/11/19 05:11 Ordered CKMB [CHEM] Q6H Lab 07/10/19 15:56 Ordered CKMB [CHEM] Q6H Lab 07/10/19 21:56 Ordered COMPREHENSIVE METABOLIC PN,CMP [CHEM] AM Lab 07/11/19 05:11 Ordered LIPASE [CHEM] AM Lab 07/11/19 05:11 Ordered LIPID PANEL [CHEM] AM Lab 07/11/19 05:11 Ordered TROPONIN I [CHEM] Q6H Lab 07/10/19 15:58 Ordered TROPONIN I [CHEM] Q6H Lab 07/10/19 21:58 Ordered TSH [CHEM] AM Lab 07/11/19 05:11 Ordered Acetaminophen [Tylenol] Med 07/10/19 15:48 Ordered 650 mg PO Q6H PRN Acetaminophen [Tylenol] Med 07/10/19 15:48 Ordered 650 mg RECTAL Q6H PRN Albuterol/Ipratropium [DuoNeb 3.0-0.5 MG/3 ML] Med 07/10/19 15:48 Ordered 3 ml NEB Q6HRRT PRN Apixaban [Eliquis] Med 07/10/19 21:00 Ordered 5 mg PO BID Aspirin [Halfprin] Med 07/11/19 09:00 Ordered 81 mg PO DAILY Docusate Sodium/Sennosides [Senna Plus] Med 07/10/19 21:00 Ordered 2 tab PO BID Doxazosin [Cardura] Med 07/10/19 21:00 Ordered 4 mg PO BEDTIME Escitalopram Med 07/11/19 09:00 Ordered 20 mg PO DAILY Finasteride [Proscar] Med 07/11/19 09:00 Ordered 5 mg PO DAILY Furosemide [Lasix] Med 07/10/19 15:48 Once 40 mg IVPUSH ONETIME ONE Furosemide [Lasix] 100 mg Med 07/10/19 16:00 Ordered Sodium Chloride 0.9% [Normal Saline] 90 ml IV CONTINUOUS Isosorbide Mononitrate [Imdur] Med 07/10/19 21:00 Ordered 60 mg PO BEDTIME Levothyroxine Med 07/11/19 09:00 Ordered 275 mcg PO DAILY Levothyroxine Med 07/11/19 06:00 Active 75 mcg PO ACBREAKFAST Magnesium Sulfate/D5W [Magnesium Sulfate in D5W 100 Med 07/10/19 16:00 Ordered Premix] 1 gm Premix Bag 1 bag IV Q1H Morphine Med 07/10/19 15:48 Ordered 2 mg IVPUSH Q4H PRN Nebivolol Med 07/10/19 21:00 Ordered 2.5 mg PO BEDTIME Nicotine [Habitrol] Med 07/10/19 16:00 Ordered 14 mg TRDERM DAILY Nitroglycerin [Nitrostat] Med 07/10/19 12:36 Active 0.4 mg SL Q5M PRN Nitroglycerin [Nitrostat] Med 07/10/19 15:48 Ordered 0.4 mg SL Q5M PRN Ondansetron [Zofran] Med 07/10/19 15:48 Ordered 4 mg IVPUSH Q4H PRN Pantoprazole [ProTONIX] Med 07/10/19 16:00 Ordered 40 mg PO BIDAC Pregabalin Med 07/10/19 21:00 Ordered 150 mg PO TID Sodium Chloride 0.9% [Saline Flush] Med 07/10/19 13:11 Active 10 ml FLUSH ONETIME PRN Sucralfate [Carafate] Med 07/10/19 21:00 Ordered 2 gm PO BEDTIME Suvorexant [Belsomra] Med 07/10/19 15:44 Ordered 20 mg PO BEDTIME PRN Tamsulosin [Flomax] Med 07/10/19 21:00 Ordered 0.4 mg PO BEDTIME Vitamin B Complex Med 07/10/19 21:00 Ordered 1 tab PO BEDTIME atorvaSTATin Med 07/11/19 09:00 Ordered 20 mg PO DAILY diphenhydrAMINE [Benadryl] Med 07/10/19 15:48 Ordered 25 mg IVPUSH Q4H PRN hydrALAZINE [Apresoline] Med 07/10/19 15:48 Ordered 10 mg IVPUSH Q6H PRN oxyCODONE HCl/Acetaminophen Med 07/10/19 15:44 Ordered 1 tab PO Q4HR PRN polyethylene glycoL 3350 [MiraLAX] Med 07/11/19 09:00 Ordered 17 gm PO DAILY Antiembolic Hose [OM.PC] Routine Oth 07/10/19 15:48 Ordered BiPAP [RESPCARE] Routine Oth 07/10/19 16:08 Ordered Resuscitation Status Routine Resus Stat 07/10/19 15:48 Ordered EKG 12 Lead [EK] Stat Ther 07/10/19 12:28 Ordered Medication Orders Acetaminophen (Tylenol) 650 mg PO Q6H PRN PRN Reason: Pain (Mild 1-3) or Fever Acetaminophen (Tylenol) 650 mg RECTAL Q6H PRN PRN Reason: Pain (Mild 1-3) or Fever Albuterol/Ipratropium (Duoneb 3.0-0.5 Mg/3 Ml) 3 ml NEB Q6HRRT PRN PRN Reason: Shortness of Breath Apixaban (Eliquis) 5 mg PO BID [facility]NE Aspirin (Halfprin) 81 mg PO DAILY [facility] Carvedilol (Coreg) 3.125 mg PO BID [facility] Citalopram Hydrobromide (Celexa) 40 mg PO DAILY [facility] Diphenhydramine HCl (Benadryl) 25 mg IVPUSH Q4H PRN PRN Reason: Restlessness or Allergies Doxazosin Mesylate (Cardura) 4 mg PO BEDTIME [facility] Finasteride (Proscar) 5 mg PO DAILY [facility] Furosemide (Lasix) 40 mg IVPUSH ONETIME ONE Stop: 07/10/19 15:49 Hydralazine HCl (Apresoline) 10 mg IVPUSH Q6H PRN PRN Reason: Hypertension Furosemide 100 mg/ Sodium (Chloride) 100 mls @ 5 mls/hr IV CONTINUOUS BLAYNE; Protocol Magnesium Sulfate/Dextrose 1 (gm/ Premix) 100 mls @ 100 mls/hr IV Q1H BLAYNE Stop: 07/10/19 19:59 Isosorbide Mononitrate (Imdur) 60 mg PO BEDTIME BLAYNE Levothyroxine Sodium (Levothyroxine) 200 mcg PO ACBREAKFAST BLAYNE Levothyroxine Sodium (Levothyroxine) 75 mcg PO ACBREAKFAST BLYANE Morphine Sulfate (Morphine) 2 mg IVPUSH Q4H PRN PRN Reason: Pain (severe 7-10) Nicotine (Habitrol) 14 mg TRDERM DAILY [facility]NE Nitroglycerin (Nitrostat) 0.4 mg SL Q5M PRN PRN Reason: Chest Pain Last Admin: 07/10/19 12:45 Dose: 0.4 mg Admin: 07/10/19 12:39 Dose: 0.4 mg Nitroglycerin (Nitrostat) 0.4 mg SL Q5M PRN PRN Reason: Chest Pain Non-Formulary Medication (Oxycodone Hcl/Acetaminophen) 1 tab PO Q4HR PRN PRN Reason: Pain Non-Formulary Medication (Suvorexant [Belsomra]) 20 mg PO BEDTIME PRN PRN Reason: Insomnia Ondansetron HCl (Zofran) 4 mg IVPUSH Q4H PRN PRN Reason: Nausea and Vomiting Pantoprazole Sodium (Protonix) 40 mg PO BIDAC [facility] Polyethylene Glycol (Miralax) 17 gm PO DAILY BLAYNE Pregabalin (Lyrica) 150 mg PO TID [facility]LAYNE Senna/Docusate Sodium (Senna Plus) 2 tab PO BID [facility]NE Simvastatin (Zocor) 20 mg PO DAILY [facility] Sodium Chloride (Saline Flush) 10 ml FLUSH ONETIME PRN PRN Reason: IV Flush Last Admin: 07/10/19 13:13 Dose: 10 ml Sucralfate (Carafate) 2 gm PO BEDTIME BLAYNE Tamsulosin HCl (Flomax) 0.4 mg PO BEDTIME [facility] Vitamin B Complex/Vitamin C (Super B With Vitamin C) 1 cap PO BEDTIME [facility] Assessment/Plan Comment:: Acute on Chronic CHF. ECHO will be requested to verify LVEF. Will start telemetry. Will do additional 2 sets of EKG and cardiac enzymes. Lasix 40 mg IVP now, then will start Lasix drip 5 mg/hr. Will watch closely urine output, BP , renal function, and electrolytes. In anticipation of K and Mg losses, will supplement MgSO4 1 gr IV . For better HR control, will start bystolic 2.5 mg PO qhs., Patient will also be started on BiPAP with settings of 14/8 FiO2 50%.the patient's input and output. Hold Lasix if systolic blood pressure less than 100. Chest pain rule out ND with History of Coronary Heart disease: Patient presented with chest pain, improved after nitroglycerin and aspirin given in the ED. Last stress test. Patient more than 1 year ago. EKG and cardiac enzymes no concern for acute ischemia. Plan will be to do additional 2 sets of cardiac enzymes and EKG. Plan to diurese patient as above and when patient is more stable, will consider stress test for this patient. New aspirin 81 mg p.o. daily, Bystolic 2.5 mg p.o. Meanwhile patient will be on telemetry. Chronic angina: Continue home dose of Imdur 60 mg p.o. nightly patient also be on sublingual nitroglycerin as needed chest pain. Hypertension: The patient will be on a cautious dose of b-blockers bystolic 2.5 mg PO qhs (will hold dose if HR<60/min or SBP<90 mmHg). Will start Hydralazine 10 mg IVP q 6 hours as needed for SBP > 180 mmHg). Home vasodilators will be on hold for now but might restart later if BP higher than the target level. History of paroxysmal atrial fibrillation: Patient reports chest pain as described above, denies palpitation we will keep patient on telemetry, continue beta-frank with Bystolic 2.5 mg p.o. nightly, continue anticoagulation with Eliquis 5 mg p.o. twice daily. Continue to monitor the patient's H&H. Depression: Continue home dose of duloxetine 20 mg p.o. nightly and escitalopram 20 mg p.o. daily. BPH: Continue home dose of Flomax 0.4 mg p.o. nightly and finasteride 5 mg p.o. daily. History of renal cell carcinoma/throat cancer: T scan of abdomen and pelvis along with chest will be requested for further evaluation to make sure no malignancy given patient presented with chest discomfort. Dyslipidemia. Will continue the home dose of statin atorvastatin 20 mg PO qhs. Will check fasting lipid profile in am to see if the adjustment of the dose needed. Hypothyroidism. Will continue the home dose of Synthroid 225 mcg q am. Will check TSH and Free T4 (if needed). Smoking dependence. The patient was counseled about the need to immediately stop smoking. Will start Nicotine patch 14 mg daily (the 1st patch now) to relieve the smoking abstinence. Will add Duoneb nebulizer treatment Q 8 hours + Albuterol Q 2 hours prn wheezing. Pain Control: Acetaminophen 650mg PO Q6H PRN mild pain or fever, continue home codeine 10/325 1 tablet every 6 hours as needed pain, and morphine sulfate 2mg IVP Q4H PRN chest pain or severe pain. Restlessness or Allergies: Benadryl 25mg IV Q4H PRN restlessness or allergy. Nausea: In case of nausea use Zofran 4mg IVP Q4H PRN nausea. DVT Prophylaxis: Patient is on Eliquis will continue. We will keep monitoring H& H and platelet count. UGI Bleed Prophylaxis: Protonix 40mg PO bid before dinner, Carafate 2 gram PO QHS, anti-reflux precautions, and Mylanta 30 mL q4h PRN indigestion. Constipation Prophylaxis: Senokot S 2 tabs PO BID, MiraLAX 17 grams PO at 1400 daily PRN no bowl movement, Fleet enema every other day if needed. CODE STATUS: Full Code Disposition: Anticipated hospital stay is longer than 2 midnights. - Mortality Measure Prognosis:: Good
[2019-07-10] MEDS: Nicotine 14 MG/24 Hr Patch TRDERM SCH (18:02)
[2019-07-10] MEDS: Pantoprazole 40 MG Tab.CR PO SCH (18:02)
[2019-07-10] MEDS: Furosemide 100 MG in Sodium Chloride 0.9% 90 ML IV SCH (18:35)
[2019-07-10] MEDS: Acetaminophen/HYDROcodone 325-5 MG Tab PO PRN ×2 (18:36→22:21)
[2019-07-10] MEDS: Sucralfate 1 GM Tab PO SCH (21:22)
[2019-07-10] MEDS: Apixaban 5 MG Tab PO SCH (22:19)
[2019-07-10] MEDS: Doxazosin 4 MG Tab PO SCH (22:19)
[2019-07-10] MEDS: Vitamin B Complex With Vitamin C Cap PO SCH (22:19)
[2019-07-10] MEDS: Tamsulosin 0.4 MG Cap.ER PO SCH (22:20)
[2019-07-10] MEDS: Isosorbide Mononitrate 60 MG Tab.ER PO SCH (22:20)
[2019-07-10] MEDS: Pregabalin 75 MG Cap PO SCH (22:20)
[2019-07-10] MEDS: Carvedilol 3.125 MG Tab PO SCH (22:21)
[2019-07-10] MEDS ORDERED: traZODone 50 MG Tab PO PRN (22:38)
[2019-07-11] MEDS: Levothyroxine 75 MCG Tab PO SCH (05:54)
[2019-07-11] MEDS: Pantoprazole 40 MG Tab.CR PO SCH ×2 (05:55→16:37)
[2019-07-11] MEDS: Acetaminophen/HYDROcodone 325-5 MG Tab PO PRN ×4 (05:55→21:00)
[2019-07-11] MEDS: Polyethylene Glycol 3350 Powder 17 GM Packet PO SCH (08:52)
[2019-07-11] MEDS: Citalopram 20 MG Tab PO SCH (08:53)
[2019-07-11] MEDS: Pregabalin 75 MG Cap PO SCH ×3 (08:53→20:52)
[2019-07-11] MEDS: Carvedilol 3.125 MG Tab PO SCH ×2 (08:54→20:53)
[2019-07-11] MEDS: Aspirin 81 MG Tab.EC PO SCH (08:54)
[2019-07-11] MEDS: Finasteride 5 MG Tab PO SCH (08:55)
[2019-07-11] MEDS: Apixaban 5 MG Tab PO SCH ×2 (08:56→20:53)
[2019-07-11] MEDS: Simvastatin 20 MG Tab PO SCH (08:56)
[2019-07-11] MEDS: Nicotine 14 MG/24 Hr Patch TRDERM SCH (08:56)
[2019-07-11] MEDS ORDERED: Finasteride 5 MG Tab PO SCH (09:00)
--- NOTE | 2019-07-11 09:25 | HP ---
DATE OF ADMISSION: 07/10/2019 ADDENDUM: CHIEF COMPLAINT: Chest pain, shortness of breath. PAST MEDICAL HISTORY: Significant for coronary artery disease/status post remote stent placement 6 years ago; leaky aortic valve with history of paroxysmal AFib, on anticoagulation with Eliquis; anxiety; hypothyroidism; GERD; BPH; chronic pain syndrome; CHF with unknown left ventricular ejection fraction, on Lasix 80 mg p.o. twice a day. The patient was seen, examined, and discussed by me with Luis Rosenthal PA-C. Mr. Quarles is a 69-year-old white male with past medical history as above, stated that overall he was in his usual state of health until noticed some worsening of bilateral leg swellings and shortness of breath for last few days. He did not seek for medical attention until this morning when the patient woke up with severe epigastric/lower substernal chest pain, but the patient felt like somebody was sitting on his chest. The patient came to the emergency room for evaluation. Evaluation in the emergency room revealed normal troponin I. The patient received nitroglycerin and aspirin in the emergency room, and chest pain relieved (to note, the patient was taking nitroglycerin at home and it was not helpful). Further workup in the emergency room included a chest x-ray that showed signs of vascular congestion. EKG did not show acute myocardial damage and as already mentioned, troponin I was normal. Physical assessment found the patient has signs of severe fluid overload consistent with acute on top of chronic CHF, most likely with diastolic dysfunction (echocardiogram will be requested). Given the patient's history, clinical presentation, results of tests and clinical assessment with diagnosis, acute on top of chronic CHF likely with diastolic dysfunction and chest pain, rule out PA, the patient will be admitted to Med/Surg floor telemetry for further workup and management. On further management, the patient will be started on continuous noninvasive ventilation. We will give the patient Lasix 80 mg IV push and we will start on Lasix drip at 5 mg/hour (we anticipate negative fluid balance 15 to 20 pounds to achieve euvolemic status). We will continue home beta-blockers. We will do all 3 sets of cardiac enzymes and EKGs to rule out PA. If no acute issues, the patient does respond to therapy from day 1, rules out for PA, we will do Lexiscan Cardiolite stress test most likely on 07/12/2019 to decide about need for further ischemic cardiac workup. Meanwhile, we will also check the patient with right upper quadrant ultrasound and given the patient's reported history of nephrectomy for renal cell carcinoma and remote history of throat cancer, we will proceed with chest, abdomen, and pelvis CT as basic workup for potential metastasis given CVAT and sudden onset of clinical presentation. Anticipated hospital stay 3 to 4 days if no acute issues and the patient responds to therapy. For details of the patient's history, clinical presentation, test results, physical exam, medications, and further plan of management, please see H and P note prepared by Luis Rosenthal PA-C, that I discussed with Luis in detail at the time of admission visit. TEST RESULTS: EKG was done on 07/10/2019 at 1221, reviewed and interpreted by me as following; sinus rhythm 55 per minute, first-degree AV block, AR interval 0.24 seconds, normal QRS, QTc intervals, Q-waves in leads III and aVF suggestive of remote inferior wall PA? Signs of LVH. No obvious signs of acute myocardial damage or ischemia. No significant arrhythmia except mild bradycardia as above. MMODAL /[id number]
[2019-07-11] MEDS ORDERED: Potassium Chloride 20 MEQ Tab.ER PO ONE (12:33)
--- NOTE | 2019-07-11 13:20 | PCM.PN ---
- General Info Date of Service: 07/11/19 - Review of Systems Systems Review Comment:: The patient was seen and examined by me, and discussed with Dr. Pérez. At the time of my exam, patient resting on the chair. Patient states he has not had any recurrence of his chest pain that he had at time of admission yesterday. States his main complaint today is that he feels like when he eats foods get stuck around the esophagus. Denies any obvious fevers or chills. Since admission, the patient has had about 3100 mL of negative fluid balance. WBC today slightly elevated but the patient has not had any fevers. Lower extremity swelling seems to be improving. Otherwise nursing staff did not report any other acute complaints with the patient today. - Patient Data Vitals - Most Recent: Last Vital Signs Temp 98.6 F 07/11/19 11:14 Pulse 55 L 07/11/19 11:14 Resp 20 07/11/19 11:14 BP 110/81 07/11/19 11:14 Pulse Ox 93 L 07/11/19 11:14 Weight - Most Recent: 272 lb 1.6 oz I&O - Last 24 Hours: Intake & Output 07/10/19 07/11/19 07/11/19 22:59 06:59 14:59 Intake Total 200 1050 510 Output Total 4425 150 Balance 200 -3375 360 Lab Results Last 24 Hours: Laboratory Results - last 24 hr 07/10/19 07/10/19 07/11/19 Range/Units 16:23 22:44 05:23 WBC 11.33 H (4.23-9.07) K/mm3 RBC 4.43 L (4.63-6.08) M/mm3 Hgb 12.7 L (13.7-17.5) gm/dl Hct 39.7 L (40.1-51.0) % MCV 89.6 (79.0-92.2) fl MCH 28.7 (25.7-32.2) pg MCHC 32.0 L (32.2-35.5) g/dl RDW Std Deviation 48.0 H (35.1-43.9) fL Plt Count 170 (163-337) K/mm3 MPV 11.5 (9.4-12.3) fl Neut % (Auto) 73.0 H (34.0-67.9) % Lymph % (Auto) 14.7 L (21.8-53.1) % [place] % (Auto) 10.4 (5.3-12.2) % Eos % (Auto) 1.3 (0.8-7.0) Baso % (Auto) 0.4 (0.1-1.2) % Neut # (Auto) 8.28 H (1.78-5.38) K/mm3 Lymph # (Auto) 1.66 (1.32-3.57) K/mm3 [place] # (Auto) 1.18 H (0.30-0.82) K/mm3 Eos # (Auto) 0.15 (0.04-0.54) K/mm3 Baso # (Auto) 0.04 (0.01-0.08) K/mm3 Sodium (136-145) mEq/L Potassium (3.5-5.1) mEq/L Chloride (98-107) mEq/L Carbon Dioxide (21-32) mEq/L Anion Gap (5-15) BUN (7-18) mg/dL Creatinine (0.7-1.3) mg/dL Est Cr Clr Drug Dosing mL/min Estimated GFR (MDRD) (>60) mL/min BUN/Creatinine Ratio (14-18) Glucose (80-115) mg/dL Calcium (8.5-10.1) mg/dL Total Bilirubin (0.2-1.0) mg/dL AST (15-37) U/L ALT (16-63) U/L Alkaline Phosphatase (46-116) U/L CK-MB (CK-2) 1.6 0.7 (0-3.6) ng/ml Troponin I 0.036 0.031 (0.00-0.056) ng/mL Total Protein (6.4-8.2) g/dl Albumin (3.4-5.0) g/dl Globulin gm/dL Albumin/Globulin Ratio (1-2) Triglycerides (<150) mg/dL Cholesterol (<200) mg/dL LDL Cholesterol Direct (<100) mg/dL HDL Cholesterol (40-59) mg/dL Lipase (73-393) U/L TSH 3rd Generation (0.358-3.74) uIU/mL 04/27/20 Range/Units 05:23 WBC (4.23-9.07) K/mm3 RBC (4.63-6.08) M/mm3 Hgb (13.7-17.5) gm/dl Hct (40.1-51.0) % MCV (79.0-92.2) fl MCH (25.7-32.2) pg MCHC (32.2-35.5) g/dl RDW Std Deviation (35.1-43.9) fL Plt Count (163-337) K/mm3 MPV (9.4-12.3) fl Neut % (Auto) (34.0-67.9) % Lymph % (Auto) (21.8-53.1) % [place] % (Auto) (5.3-12.2) % Eos % (Auto) (0.8-7.0) Baso % (Auto) (0.1-1.2) % Neut # (Auto) (1.78-5.38) K/mm3 Lymph # (Auto) (1.32-3.57) K/mm3 [place] # (Auto) (0.30-0.82) K/mm3 Eos # (Auto) (0.04-0.54) K/mm3 Baso # (Auto) (0.01-0.08) K/mm3 Sodium 142 (136-145) mEq/L Potassium 3.6 (3.5-5.1) mEq/L Chloride 106 (98-107) mEq/L Carbon Dioxide 29 (21-32) mEq/L Anion Gap 10.6 (5-15) BUN 9 (7-18) mg/dL Creatinine 1.1 (0.7-1.3) mg/dL Est Cr Clr Drug Dosing 74.68 mL/min Estimated GFR (MDRD) > 60 (>60) mL/min BUN/Creatinine Ratio 8.2 L (14-18) Glucose 107 (80-115) mg/dL Calcium 8.8 (8.5-10.1) mg/dL Total Bilirubin 0.5 (0.2-1.0) mg/dL AST 12 L (15-37) U/L ALT 11 L (16-63) U/L Alkaline Phosphatase 90 (46-116) U/L CK-MB (CK-2) (0-3.6) ng/ml Troponin I (0.00-0.056) ng/mL Total Protein 6.1 L (6.4-8.2) g/dl Albumin 2.7 L (3.4-5.0) g/dl Globulin 3.4 gm/dL Albumin/Globulin Ratio 0.8 L (1-2) Triglycerides 30 (<150) mg/dL Cholesterol 83 (<200) mg/dL LDL Cholesterol Direct 45 (<100) mg/dL HDL Cholesterol 34.0 L (40-59) mg/dL Lipase 23 L (73-393) U/L TSH 3rd Generation 0.039 L (0.358-3.74) uIU/mL Med Orders - Current: Current Medications Acetaminophen (Tylenol) 650 mg PO Q6H PRN PRN Reason: Pain (Mild 1-3) or Fever Acetaminophen (Tylenol) 650 mg RECTAL Q6H PRN PRN Reason: Pain (Mild 1-3) or Fever Hydrocodone Bitart/Acetaminophen (Scio 325-5 Mg) 2 tab PO Q4H PRN PRN Reason: Pain Last Admin: 07/11/19 11:18 Dose: 2 tab Albuterol/Ipratropium (Duoneb 3.0-0.5 Mg/3 Ml) 3 ml NEB Q6HRRT PRN PRN Reason: Shortness of Breath Apixaban (Eliquis) 5 mg PO BID [facility] Last Admin: 07/11/19 08:56 Dose: 5 mg Aspirin (Halfprin) 81 mg PO DAILY [facility] Last Admin: 07/11/19 08:54 Dose: 81 mg Carvedilol (Coreg) 3.125 mg PO BID [facility] Last Admin: 07/11/19 08:54 Dose: 3.125 mg Citalopram Hydrobromide (Celexa) 40 mg PO DAILY [facility] Last Admin: 07/11/19 08:53 Dose: 40 mg Diphenhydramine HCl (Benadryl) 25 mg IVPUSH Q4H PRN PRN Reason: Restlessness or Allergies Doxazosin Mesylate (Cardura) 4 mg PO BEDTIME [facility] Last Admin: 07/10/19 22:19 Dose: 4 mg Finasteride (Proscar) 5 mg PO DAILY [facility] Last Admin: 07/11/19 08:55 Dose: 5 mg Hydralazine HCl (Apresoline) 10 mg IVPUSH Q6H PRN PRN Reason: Hypertension Furosemide 100 mg/ Sodium (Chloride) 100 mls @ 3 mls/hr IV CONTINUOUS [facility]; Protocol Last Admin: 07/10/19 18:35 Dose: 5 mls/hr Isosorbide Mononitrate (Imdur) 60 mg PO BEDTIME [facility] Last Admin: 07/10/19 22:20 Dose: 60 mg Levothyroxine Sodium (Levothyroxine) 200 mcg PO ACBREAKFAST [facility] Last Admin: 07/11/19 05:54 Dose: 200 mcg Levothyroxine Sodium (Levothyroxine) 75 mcg PO ACBREAKFAST [facility] Last Admin: 07/11/19 05:54 Dose: 75 mcg Miscellaneous Information (Remove Patch) 1 ea TRDERM DAILY [facility] Last Admin: 07/11/19 08:57 Dose: 1 ea Morphine Sulfate (Morphine) 2 mg IVPUSH Q4H PRN PRN Reason: Pain (severe 7-10) Nicotine (Habitrol) 14 mg TRDERM DAILY [facility] Last Admin: 07/11/19 08:56 Dose: 14 mg Nitroglycerin (Nitrostat) 0.4 mg SL Q5M PRN PRN Reason: Chest Pain Suvorexant [Belsomra (] 20 Mg Ptom) 20 mg PO BEDTIME PRN PRN Reason: Insomnia Ondansetron HCl (Zofran) 4 mg IVPUSH Q4H PRN PRN Reason: Nausea and Vomiting Pantoprazole Sodium (Protonix) 40 mg PO BIDAC [facility] Last Admin: 07/11/19 05:55 Dose: 40 mg Polyethylene Glycol (Miralax) 17 gm PO DAILY [facility] Last Admin: 07/11/19 08:52 Dose: 17 gm Pregabalin (Lyrica) 150 mg PO TID [facility] Last Admin: 07/11/19 08:53 Dose: 150 mg Senna/Docusate Sodium (Senna Plus) 2 tab PO BID [facility] Last Admin: 07/11/19 08:55 Dose: 2 tab Simvastatin (Zocor) 20 mg PO DAILY [facility] Last Admin: 07/11/19 08:56 Dose: 20 mg Sodium Chloride (Saline Flush) 10 ml FLUSH ONETIME PRN PRN Reason: IV Flush Last Admin: 07/10/19 13:13 Dose: 10 ml Sucralfate (Carafate) 2 gm PO BEDTIME [facility] Last Admin: 07/10/19 21:22 Dose: Not Given Tamsulosin HCl (Flomax) 0.4 mg PO BEDTIME [facility] Last Admin: 07/10/19 22:20 Dose: 0.4 mg Vitamin B Complex/Vitamin C (Super B With Vitamin C) 1 cap PO BEDTIME [facility] Last Admin: 07/10/19 22:19 Dose: 1 cap Discontinued Medications Hydrocodone Bitart/Acetaminophen (Scio 325-5 Mg) 1 tab PO Q6H PRN PRN Reason: Pain (moderate 4-6) Aspirin (Aspirin) 324 mg PO ONETIME ONE Stop: 07/10/19 12:33 Last Admin: 07/10/19 12:35 Dose: 324 mg Finasteride (Proscar) 5 mg PO DAILY [facility] Furosemide (Lasix) 40 mg IVPUSH ONETIME ONE Stop: 07/10/19 15:49 Last Admin: 07/10/19 18:07 Dose: 40 mg Sodium Chloride (Normal Saline) 60 mls @ 4 mls/sec IV ONETIME ONE Stop: 07/10/19 13:12 Last Admin: 07/10/19 13:13 Dose: 4 mls/sec Furosemide 100 mg/ Sodium (Chloride) 100 mls @ 5 mls/hr IV CONTINUOUS [facility]; Protocol Magnesium Sulfate/Dextrose 1 (gm/ Premix) 100 mls @ 100 mls/hr IV Q1H [facility] Stop: 07/10/19 19:59 Last Admin: 07/10/19 20:34 Dose: 100 mls/hr Iopamidol (Isovue-370 (76%)) 100 ml IVPUSH ONETIME ONE Stop: 07/10/19 13:12 Last Admin: 07/10/19 13:13 Dose: 100 ml Nitroglycerin (Nitrostat) 0.4 mg SL Q5M PRN PRN Reason: Chest Pain Last Admin: 07/10/19 12:45 Dose: 0.4 mg Non-Formulary Medication (Oxycodone Hcl/Acetaminophen) 1 tab PO Q4HR PRN PRN Reason: Pain Potassium Chloride (Klor-Con M20) 40 meq PO ONETIME ONE Stop: 07/11/19 12:34 Trazodone HCl (Trazodone) 50 mg PO ONETIME PRN PRN Reason: Insomnia - Exam General: Alert, Oriented HEENT: Pupils Equal, Pupils Reactive, EOMI, Mucous Membr. Moist/Binger Neck: Supple, JVD (Distended JVD 3+ improved compared to yesterday) Lungs: Clear to Auscultation, Decreased Breath Sounds (Improving compared to yesterday), Rales Cardiovascular: Regular Rate, Regular Rhythm GI/Abdominal Exam: Normal Bowel Sounds, Soft, Non-Tender, No Organomegaly, No Distention Back Exam: Normal Inspection, Full Range of Motion Extremities: Normal Inspection, Normal Range of Motion, Pedal Edema (1 Plus pitting edema noted today compared to 3+ yesterday) Skin: Warm, Dry, Intact Neurological: No New Focal Deficit Psy/Mental Status: Alert, Normal Affect, Normal Mood Sepsis Event Note - Evaluation Sepsis Screening Result: No Definite Risk - Focused Exam Vital Signs: Vital Signs Temp Pulse Resp BP Pulse Ox Pulse Ox 07/11/19 11:14 98.6 F 55 L 20 110/81 93 L 07/11/19 08:54 68 110/62 07/11/19 07:54 91 L 07/11/19 07:20 97.5 F 64 20 98/45 L 91 L 07/11/19 06:08 56 L 92 L 07/11/19 04:45 99.9 F 59 L 18 121/54 L 95 Date Exam was Performed: 07/11/19 Time Exam was Performed: 13:10 - Problem List Review Problem List Initiated/Reviewed/Updated: Yes - My Orders Last 24 Hours: My Active Orders 07/10/19 15:44 Suvorexant [Belsomra] 20 mg PO BEDTIME PRN 07/10/19 15:48 Patient Status [ADT] Routine Cardiac Monitoring [RC] CONTINUOUS Communication Order [RC] BID Enema [RC] Q2D Head of Bed Elevation [RC] BID Height and Weight [RC] 04 Insert Urinary Catheter [OM.PC] Stat Intake and Output Strict [RC] Q6HR Notify Provider Vital Signs [RC] ASDIRECTED Notify Provider [RC] PRN Oxygen Therapy [RC] ASDIRECTED Up to Chair [RC] ASDIRECTED Vital Signs [RC] Q4HR OT Evaluation and Treatment [CONS] Routine PT Evaluation and Treatment [CONS] Routine Acetaminophen [Tylenol] 650 mg PO Q6H PRN Acetaminophen [Tylenol] 650 mg RECTAL Q6H PRN Albuterol/Ipratropium [DuoNeb 3.0-0.5 MG/3 ML] 3 ml NEB Q6HRRT PRN Morphine 2 mg IVPUSH Q4H PRN Nitroglycerin [Nitrostat] 0.4 mg SL Q5M PRN Ondansetron [Zofran] 4 mg IVPUSH Q4H PRN diphenhydrAMINE [Benadryl] 25 mg IVPUSH Q4H PRN hydrALAZINE [Apresoline] 10 mg IVPUSH Q6H PRN Antiembolic Hose [OM.PC] Routine Resuscitation Status Routine 07/10/19 15:50 Antiembolic Devices [RC] BID Urinary Catheter Assessment [RC] 04,10,16,07/10/19 16:00 Nicotine [Habitrol] 14 mg TRDERM DAILY Pantoprazole [ProTONIX] 40 mg PO BIDAC 07/10/19 16:08 BiPAP [RESPCARE] Routine 07/10/19 18:27 Acetaminophen/HYDROcodone [Scio 325-5 MG] 2 tab PO Q4H PRN 07/10/19 18:30 Furosemide [Lasix] 100 mg Sodium Chloride 0.9% [Normal Saline] 90 ml IV CONTINUOUS 07/10/19 21:00 Apixaban [Eliquis] 5 mg PO BID Docusate Sodium/Sennosides [Senna Plus] 2 tab PO BID Doxazosin [Cardura] 4 mg PO BEDTIME Isosorbide Mononitrate [Imdur] 60 mg PO BEDTIME Pregabalin [Lyrica] 150 mg PO TID Sucralfate [Carafate] 2 gm PO BEDTIME Tamsulosin [Flomax] 0.4 mg PO BEDTIME Vitamin B Complex with C [Super B With Vitamin C] 1 cap PO BEDTIME carvediloL [Coreg] 3.125 mg PO BID 07/11/19 06:00 Levothyroxine 200 mcg PO ACBREAKFAST 07/11/19 09:00 Aspirin [Halfprin] 81 mg PO DAILY Citalopram [Celexa] 40 mg PO DAILY Finasteride [Proscar] 5 mg PO DAILY Simvastatin [Zocor] 20 mg PO DAILY polyethylene glycoL 3350 [MiraLAX] 17 gm PO DAILY 07/11/19 12:33 Modified Barium Swallow Study [Swallowing Function w Video] [CR] Routine 07/12/19 05:11 Echo Comp wo Cont [US] AM CBC WITH AUTO DIFF [HEME] AM CMP [COMPREHENSIVE METABOLIC PN,CMP] [CHEM] Routine MAGNESIUM (PHARM SOLN) [CHEM] DAILY - Plan Plan:: Acute on Chronic CHF: Chest pain and shortness of breath which the patient had yesterday has improved. Since admission, the patient has had a total of about 3.1 L of negative fluid balance, lower extremity swelling has improved. Echocardiogram requested results still pending, we will diuretics with IV Lasix , but decrease from 5 mg to 3 mg/h given the patient's current blood pressure. But hold Lasix drip if systolic blood pressure less than 100. Continue to monitor replace electrolytes, follow-up on results of echocardiogram. Continue BiPAP with settings of 14/8 FiO2 50%.the patient's input and output. Continue Nascimento catheter tomorrow morning. Chest pain rule out PR with History of Coronary Heart disease: Today, the patient has not reported any more chest pain cardiac enzymes and EKG that was done to the patient not concerning for acute ischemia, will continue the patient on Bystolic 2.5 mg p.o. daily, aspirin 81 mg p.o. daily. Given the patient's history of coronary artery disease with last stress test more than 5 years ago, plan is for Lexiscan stress test tomorrow morning. Chronic angina: Continue home dose of Imdur 60 mg p.o. nightly patient also be on sublingual nitroglycerin as needed chest pain. Dysphasia: She has been reporting some dysphasia. Plan is for modified barium swallow to evaluate patient's ability to swallow. Hypertension: Morning, the patient's blood pressure has been slightly on the lower side, at time of my exam 121/54. For now, continue on the Bystolic 2.5 mg PO qhs (will hold dose if HR<60/min or SBP<90 mmHg). Will start Hydralazine 10 mg IVP q 6 hours as needed for SBP > 180 mmHg). Home vasodilators will be on hold for now but might restart later if BP higher than the target level. History of paroxysmal atrial fibrillation: No reports of chest pain or palpitations, continue Bystolic 2.5 mg p.o. nightly, continue anticoagulation with Eliquis 5 mg p.o. twice daily. Continue to monitor the patient's H&H. Depression: Continue home dose of duloxetine 20 mg p.o. nightly and escitalopram 20 mg p.o. daily. BPH: Continue home dose of Flomax 0.4 mg p.o. nightly and finasteride 5 mg p.o. daily. History of renal cell carcinoma/throat cancer: CT abdomen and pelvis that was done to the patient indicated suboptimal opacification of the aorta extensive coronary artery calcification 5.5 mm nodule which appears chronic and CT abdomen indicated haziness of the gallbladder which is difficult to exclude inflammatory changes recommendation for ultrasound. If patient reports any nausea, epigastric tenderness will recommend ultrasound. Dyslipidemia. Will continue the home dose of statin atorvastatin 20 mg PO qhs. Profile was checked, triglycerides 30 cholesterol 83, LDL 45 HDL 34. For now continue statins as above. Hypothyroidism. Will continue the home dose of Synthroid 225 mcg q am. No significant elevated TS continue current Synthroid. Smoking dependence. The patient was counseled about the need to immediately stop smoking. Will start Nicotine patch 14 mg daily (the 1st patch now) to relieve the smoking abstinence. Will add Duoneb nebulizer treatment Q 8 hours + Albuterol Q 2 hours prn wheezing. Pain Control: Acetaminophen 650mg PO Q6H PRN mild pain or fever, continue home codeine 10/325 1 tablet every 6 hours as needed pain, and morphine sulfate 2mg IVP Q4H PRN chest pain or severe pain. Restlessness or Allergies: Benadryl 25mg IV Q4H PRN restlessness or allergy. Nausea: In case of nausea use Zofran 4mg IVP Q4H PRN nausea. DVT Prophylaxis: Patient is on Eliquis will continue. We will keep monitoring H& H and platelet count. UGI Bleed Prophylaxis: Protonix 40mg PO bid before dinner, Carafate 2 gram PO QHS, anti-reflux precautions, and Mylanta 30 mL q4h PRN indigestion. Constipation Prophylaxis: Senokot S 2 tabs PO BID, MiraLAX 17 grams PO at 1400 daily PRN no bowl movement, Fleet enema every other day if needed. CODE STATUS: Full Code
[2019-07-11] MEDS: Furosemide 100 MG in Sodium Chloride 0.9% 90 ML IV SCH (14:23)
[2019-07-11] MEDS ORDERED: traZODone 50 MG Tab PO ONE (19:34)
[2019-07-11] MEDS: Sucralfate 1 GM Tab PO SCH (20:52)
[2019-07-11] MEDS: Doxazosin 4 MG Tab PO SCH (20:52)
[2019-07-11] MEDS: Tamsulosin 0.4 MG Cap.ER PO SCH (20:52)
[2019-07-11] MEDS: Vitamin B Complex With Vitamin C Cap PO SCH (20:53)
[2019-07-11] MEDS: Isosorbide Mononitrate 60 MG Tab.ER PO SCH (20:54)
[2019-07-12] MEDS: Levothyroxine 75 MCG Tab PO SCH (05:16)
[2019-07-12] MEDS: Pantoprazole 40 MG Tab.CR PO SCH (05:16)
--- NOTE | 2019-07-12 07:38 | PN ---
DATE OF SERVICE: 07/11/2019 ADDENDUM: The patient was seen, examined, and discussed by me with Luis Rosenthal PA-C. The patient is on Lasix drip 5 mg/hour. He is on continuous BiPAP. It looks like patient responds very nicely to this therapy, negative fluid balance 3.5 L since admission. The patient does not report anymore chest pain. Sets of cardiac enzymes and EKGs were done since admission, negative for acute myocardial damage. At this moment, at time of assessment, the patient still has signs of significant fluid overload and we will continue the patient on Lasix drip 5 mg/hour. We will replace electrolytes. Tomorrow, we are planning to do Lexiscan Cardiolite stress test in concern of chest pain that the patient reported on admission. This will help to decide if patient needs further ischemic cardiac evaluation. The patient will stay in-house. For details of the patient's review of systems, interval test results, physical exam, medications, and further plan of management, please see note prepared by Luis Rosenthal PA-C. TEST RESULTS: Additional EKG was done on 07/11/2019 at 0749 a.m. reviewed and interpreted by me as following, sinus rhythm 56 per minute, first-degree AV block, PA interval 0.24 seconds, normal QRS, QTc intervals, nonspecific intraventricular conductivity changes. Q-waves in leads III, aVF of unknown significance, but possible remote inferior wall SC. No obvious signs of acute myocardial damage or ischemia. MMODAL /[id number]
[2019-07-12] MEDS ORDERED: Levothyroxine 25 MCG Tab PO SCH (07:45)
[2019-07-12] MEDS: Acetaminophen/HYDROcodone 325-5 MG Tab PO PRN ×2 (08:10→12:16)
--- NOTE | 2019-07-12 08:36 | PCM.PRNOTE ---
- Free Text/Narrative Note: Date of service: 07/12/19 Procedure: Regadenoson (Lexiscan) stress test Ordering provider: Dinesh Strauss PA-C/Dr. Danny Pérez Indication: Chest pain with history of CAD; Stent placement Baseline EKG: Sinus rhythm at 64 bpm. T-wave inversion in V1 - normal variant Risks and benefits were discussed with the patient and consent form was signed. The patient received Regadenoson (Lexiscan) 0.4 mg IV and a nuclear agent using standard protocol. The patient was seated for the procedure. Lexiscan test: Heart rate: 79 bpm; Blood pressure: 102/39 mm Hg; Oxygenation: 94 %. EKG changes of ischemia during stress test or in recovery: None Arrhythmias: None Adverse effects of Lexiscan: Lightheadedness and shortness of breath which rapidly and spontaneously resolved prior to completion of test. Test terminated due to: End of protocol Impression: 1. Indeterminate Lexiscan stress test ECG for ischemia. Non-diagnostic per Lexiscan protocol. No definitive signs of ischemia seen. 2. Nuclear images pending and will be reported separately per Radiologist.
[2019-07-12] MEDS ORDERED: Potassium Chloride 20 MEQ Tab.ER PO ONE (09:00)
[2019-07-12] MEDS: Simvastatin 20 MG Tab PO SCH (09:14)
[2019-07-12] MEDS: Aspirin 81 MG Tab.EC PO SCH (09:14)
[2019-07-12] MEDS: Apixaban 5 MG Tab PO SCH (09:15)
[2019-07-12] MEDS: Pregabalin 75 MG Cap PO SCH (09:15)
[2019-07-12] MEDS: Citalopram 20 MG Tab PO SCH (09:15)
[2019-07-12] MEDS: Carvedilol 3.125 MG Tab PO SCH (09:15)
[2019-07-12] MEDS: Nicotine 14 MG/24 Hr Patch TRDERM SCH (09:17)
[2019-07-12] MEDS: Polyethylene Glycol 3350 Powder 17 GM Packet PO SCH (09:17)
[2019-07-12] MEDS: Finasteride 5 MG Tab PO SCH (09:19)
--- NOTE | 2019-07-12 12:02 | PCM.DCSUM1 ---
Discharge Summary - Hospital Course Free Text/Narrative:: Admission Diagnosis: Chest pain and SOB Discharge Diagnosis 1. Acute on chronic CHF exacerbation status post resolve 2. Chest pain rule out SD with negative stress test 3. Electrolyte imbalance status post replace 4. Hypertension 5. Dyslipidemia 6. BPH 7. Chronic respiratory failure on CPAP with oxygen overnight recommended to continue. 8. Coronary artery disease status post 1 stent placement 9. Hypothyroidism 10. Paroxysmal atrial fibrillation on Eliquis 11.Chronic angina 12. Nicotine dependence (counseled about need for smoking cessation but patient states he will continue smoking) 13. Dysphasia, (patient recommended for modified barium swallow but unfortunately done during admission. Patient is to follow-up as outpatient for the study. Recommendation on discharge mechanical soft diet). Mr. Quarles is a pleasant 69-year-old male, who was admitted to the hospital on 07/10/2019 after the patient presented with chest pain. The patient reported he was in his usual state of health, went on the day of admission started having right to left chest pain, describes pain as sharp to pressure- like in nature. Reported taking nitroglycerin without significant improvement. Decided to come to the ED for further evaluation. On presentation the ED, cardiac enzymes and EKG that was done to the patient was not concerning for acute ischemia. But on presentation patient was found with signs of fluid overload. Was admitted to the hospital, started on diuretics. Patient was started on Lasix drip, in total, patient had what I believe is about 6 L of negative fluid balance. Chest pain which the patient had on admission improved. Patient did not have any obvious fevers or chills, no nausea no vomiting. Given the patient's significant coronary artery history, stress test was done to the patient which fortunately was negative for stress-induced ischemia. Echocardiogram was also requested, no acute findings noted after it was evaluated by Dr. Pérez. He was eating and drinking. Despite leukocytosis , no obvious signs of infection noted, but the patient will be discharged on additional 5 days of Augmentin. On discharge, patient CT scan of abdomen and pelvis, which did not indicate any acute findings. Concerns on gallbladder, despite no fevers and no LFTs no reports of abdominal pain, gallbladder ultrasound is recommended as outpatient. Meanwhile physical therapy was consulted, recommendation is for home health. Patient will be discharged home, with home health services. Advised about smoking cessation. Patient states he will continue smoking so nicotine patch was not offered. He is advised to follow-up with PCP and cardiology within 1 to 2 weeks of discharge. HPI Initial Comments: Mr. Quarles is a pleasant 69-year-old male, with past medical history significant for obstructive sleep apnea on CPAP overnight, history of paroxysmal atrial fibrillation anticoagulated with Eliquis, history of CAD status post 1 stent placement, hypertension, dyslipidemia, chronic pain syndrome , BPH, gastroesophageal reflux disease, nicotine dependence and hypothyroidism. Patient presented today in the ED for evaluation of chest pain. The patient reported he was in his usual state of health, when approximately around 9 AM this morning, he started having what he describes as mid sternal chest discomfort with radiation to the left chest and back. Initially thought nothing of this but per the patient pain persisted. Took nitroglycerin x2 at home without significant improvement so patient decided to come to the ED for further evaluation. On presentation in the ED, patient still appeared to be in moderate distress. Patient was given 2 nitroglycerin along with aspirin which did help relieve the patient's symptoms. Patient denied any diaphoresis, nausea or vomiting. Denies any lightheadedness. But also reported increased swelling in both lower extremities. Initial cardiac enzymes and EKG that was done to the patient in the ED not concerning for acute ischemia. Labs indicated WBC 9.7 H&H 13.3/40.6, platelets 108 sodium/potassium 143/4.0, chloride 106 CO2 26 BUN/creatinine 9/1.0 random glucose 101. On physical exam, patient noted with 3+ pitting edema bilaterally, diminished breath sounds. Given this presentation, patient will be admitted with chief complaint chest pain rule out SD, acute on chronic CHF exacerbation for further work-up and management. Middle Chest Diagnosis: Stroke: No - Discharge Data Discharge Date: 07/12/19 Discharge Disposition: Home, W Home Health Agency 06 Condition: Good - Referral to Home Health Date of Face to Face Encounter: 07/12/19 Reason for Homebound Status: weakness Primary Care Physician: PCP Not In Area Skilled Need: no - Discharge Diagnosis/Problem(s) (1) Chest pain SNOMED Code(s): 46903245 ICD Code: R07.9 - CHEST PAIN, UNSPECIFIED Status: Acute Current Visit: Yes (2) Congestive heart failure SNOMED Code(s): 77337325 ICD Code: I50.9 - HEART FAILURE, UNSPECIFIED Status: Chronic Priority: High Current Visit: No Qualifiers: Qualified Code(s): I50.33 - Acute on chronic diastolic (congestive) heart failure - Patient Summary/Data Consults: Consultations 07/10/19 15:48 OT Evaluation and Treatment [CONS] Routine PT Evaluation and Treatment [CONS] Routine 07/11/19 10:20 PAYER SPECIALIST Eval and Treat [PAYER SPECIALIST Evaluation and Treatment] [CONS] Routine - Patient Instructions Diet: Heart Healthy Diet (mechanical soft diet), Low Sodium, Mechanical Soft Fluid Restriction: 2000 mL Activity: As Tolerated - Discharge Plan *PRESCRIPTION DRUG MONITORING PROGRAM REVIEWED*: No *COPY OF PRESCRIPTION DRUG MONITORING REPORT IN PATIENT MERLINE: No Prescriptions/Med Rec: Amoxicillin/Potassium Clav [Augmentin 875-125 Tablet] 1 each PO BID #5 tablet metOLazone [Zaroxolyn] 5 mg PO DAILY PRN #30 tab PRN Reason: Edema Home Medications: Home Meds Potassium Chloride [Klor-Con] 20 meq PO BID 10/06/13 [History] atorvaSTATin [Lipitor] 20 mg PO DAILY 11/17/14 [History] Tamsulosin [Flomax] 0.4 mg PO BEDTIME 05/16/15 [History] Apixaban [Eliquis] 5 mg PO BID 10/03/16 [History] Furosemide [Lasix] 80 mg PO BID 10/03/16 [History] Doxazosin [Cardura] 4 mg PO BEDTIME 11/30/17 [History] Isosorbide Mononitrate [Isosorbide Mononitrate ER] 60 mg PO BEDTIME 11/30/17 [ History] Naloxone HCl [Narcan] 4 mg NS ASDIRECTED PRN 11/30/17 [History] Nebivolol [Bystolic] 2.5 mg PO BEDTIME 11/30/17 [History] Pregabalin [Lyrica] 150 mg PO TID 11/30/17 [History] amLODIPine Besylate [Amlodipine Besylate] 10 mg PO BEDTIME 11/30/17 [History] Aspirin [Adult Low Dose Aspirin EC] 81 mg PO DAILY 09/14/18 [History] Escitalopram Oxalate 20 mg PO DAILY 09/14/18 [History] Levothyroxine 225 mcg PO DAILY 09/14/18 [History] Omeprazole 20 mg PO BIDMEALS 09/14/18 [History] Sennosides/Docusate Sodium [Senna-Docusate Sodium Tablet] 2 tab PO BID PRN 09/14 [History] Suvorexant [Belsomra] 20 mg PO BEDTIME PRN 09/14/18 [History] Vitamin B Complex 1 tab PO BEDTIME 09/14/18 [History] Albuterol Sulfate [Proair Respiclick] 1 - 2 puff IH Q4H PRN 09/15/18 [History] Nitroglycerin [Nitrostat] 0.4 mg SL ASDIRECTED PRN 09/15/18 [History] Finasteride 5 mg PO DAILY 07/10/19 [History] Allopurinol [Zyloprim] 100 mg PO DAILY 07/11/19 [History] Budesonide/Formoterol Fumarate [Symbicort 160-4.5 Mcg Inhaler] 2 puff INH BID [History] Cholecalciferol (Vitamin D3) [Vitamin D3] 2,000 unit PO DAILY 07/11/19 [History] Umeclidinium (Incruse Ellipta) 1 puff INH DAILY 07/11/19 [History] busPIRone HCl [Buspirone HCl] 7.5 mg PO BID 07/11/19 [History] Amoxicillin/Potassium Clav [Augmentin 875-125 Tablet] 1 each PO BID #5 tablet [Rx] Levothyroxine 25 mcg PO ACBREAKFAST tablet 07/12/19 [Rx] metOLazone [Zaroxolyn] 5 mg PO DAILY PRN #30 tab 07/12/19 [Rx] Oxygen Therapy Mode: CPAP (over night with oxygen.) Oxygen Flow Rate (L/min): 2 Patient Handouts: Nonspecific Chest Pain, Adult, [id number], Steps to Quit Smoking Forms: ED Department Discharge Referrals: Candi Mancini MD [Physician] - - Discharge Summary/Plan Comment DC Time >30 min.: Yes - Patient Data Vitals - Most Recent: Last Vital Signs Temp 98.2 F 07/12/19 09:03 Pulse 56 L 07/12/19 09:15 Resp 19 07/12/19 09:03 BP 135/68 07/12/19 09:15 Pulse Ox 92 L 07/12/19 09:03 Weight - Most Recent: 273 lb 11.2 oz I&O - Last 24 hours: Intake & Output 07/11/19 07/12/19 07/12/19 22:59 06:59 14:59 Intake Total 1430 539 120 Output Total 400 1100 Balance 1030 -561 120 Lab Results - Last 24 hrs: Laboratory Results - last 24 hr 07/12/19 07/12/19 07/12/19 Range/Units 05:03 06:15 06:15 WBC 13.15 H (4.23-9.07) K/mm3 RBC 4.52 L (4.63-6.08) M/mm3 Hgb 13.2 L (13.7-17.5) gm/dl Hct 40.3 (40.1-51.0) % MCV 89.2 (79.0-92.2) fl MCH 29.2 (25.7-32.2) pg MCHC 32.8 (32.2-35.5) g/dl RDW Std Deviation 47.7 H (35.1-43.9) fL Plt Count 151 L (163-337) K/mm3 MPV 11.6 (9.4-12.3) fl Neut % (Auto) 68.5 H (34.0-67.9) % Lymph % (Auto) 13.7 L (21.8-53.1) % Desha % (Auto) 13.2 H (5.3-12.2) % Eos % (Auto) 4.0 (0.8-7.0) Baso % (Auto) 0.2 (0.1-1.2) % Neut # (Auto) 9.01 H (1.78-5.38) K/mm3 Lymph # (Auto) 1.80 (1.32-3.57) K/mm3 Desha # (Auto) 1.74 H (0.30-0.82) K/mm3 Eos # (Auto) 0.52 (0.04-0.54) K/mm3 Baso # (Auto) 0.03 (0.01-0.08) K/mm3 Manual Slide Review Normal smear Sodium 140 (136-145) mEq/L Potassium 3.9 (3.5-5.1) mEq/L Chloride 104 (98-107) mEq/L Carbon Dioxide 27 (21-32) mEq/L Anion Gap 12.9 (5-15) BUN 13 (7-18) mg/dL Creatinine 1.1 (0.7-1.3) mg/dL Est Cr Clr Drug Dosing 74.68 mL/min Estimated GFR (MDRD) > 60 (>60) mL/min BUN/Creatinine Ratio 11.8 L (14-18) Glucose 98 (80-115) mg/dL Calcium 9.0 (8.5-10.1) mg/dL Magnesium 2.1 (1.8-2.4) mg/dl Total Bilirubin 0.6 (0.2-1.0) mg/dL AST 12 L (15-37) U/L ALT 11 L (16-63) U/L Alkaline Phosphatase 78 (46-116) U/L Total Protein 6.2 L (6.4-8.2) g/dl Albumin 2.6 L (3.4-5.0) g/dl Globulin 3.6 gm/dL Albumin/Globulin Ratio 0.7 L (1-2) Med Orders - Current: Current Medications Acetaminophen (Tylenol) 650 mg PO Q6H PRN PRN Reason: Pain (Mild 1-3) or Fever Acetaminophen (Tylenol) 650 mg RECTAL Q6H PRN PRN Reason: Pain (Mild 1-3) or Fever Hydrocodone Bitart/Acetaminophen ([place] 325-5 Mg) 2 tab PO Q4H PRN PRN Reason: Pain Last Admin: 07/12/19 08:10 Dose: 2 tab Albuterol/Ipratropium (Duoneb 3.0-0.5 Mg/3 Ml) 3 ml NEB Q6HRRT PRN PRN Reason: Shortness of Breath Apixaban (Eliquis) 5 mg PO BID [facility] Last Admin: 07/12/19 09:15 Dose: 5 mg Aspirin (Halfprin) 81 mg PO DAILY [facility] Last Admin: 07/12/19 09:14 Dose: 81 mg Carvedilol (Coreg) 3.125 mg PO BID [facility] Last Admin: 07/12/19 09:15 Dose: 3.125 mg Citalopram Hydrobromide (Celexa) 40 mg PO DAILY [facility] Last Admin: 07/12/19 09:15 Dose: 40 mg Diphenhydramine HCl (Benadryl) 25 mg IVPUSH Q4H PRN PRN Reason: Restlessness or Allergies Doxazosin Mesylate (Cardura) 4 mg PO BEDTIME [facility] Last Admin: 07/11/19 20:52 Dose: 4 mg Finasteride (Proscar) 5 mg PO DAILY [facility] Last Admin: 07/12/19 09:19 Dose: 5 mg Hydralazine HCl (Apresoline) 10 mg IVPUSH Q6H PRN PRN Reason: Hypertension Isosorbide Mononitrate (Imdur) 60 mg PO BEDTIME [facility] Last Admin: 07/11/19 20:54 Dose: Not Given Levothyroxine Sodium (Levothyroxine) 200 mcg PO ACBREAKFAST [facility] Last Admin: 07/12/19 05:16 Dose: Not Given Levothyroxine Sodium (Levothyroxine) 25 mcg PO ACBREAKFAST [facility] Miscellaneous Information (Remove Patch) 1 ea TRDERM DAILY [facility] Last Admin: 07/12/19 09:20 Dose: 1 ea Morphine Sulfate (Morphine) 2 mg IVPUSH Q4H PRN PRN Reason: Pain (severe 7-10) Nicotine (Habitrol) 14 mg TRDERM DAILY [facility] Last Admin: 07/12/19 09:17 Dose: 14 mg Nitroglycerin (Nitrostat) 0.4 mg SL Q5M PRN PRN Reason: Chest Pain Suvorexant [Belsomra (] 20 Mg Ptom) 20 mg PO BEDTIME PRN PRN Reason: Insomnia Ondansetron HCl (Zofran) 4 mg IVPUSH Q4H PRN PRN Reason: Nausea and Vomiting Pantoprazole Sodium (Protonix) 40 mg PO BIDAC [facility] Last Admin: 07/12/19 05:16 Dose: Not Given Polyethylene Glycol (Miralax) 17 gm PO DAILY [facility] Last Admin: 07/12/19 09:17 Dose: 17 gm Pregabalin (Lyrica) 150 mg PO TID [facility] Last Admin: 07/12/19 09:15 Dose: 150 mg Senna/Docusate Sodium (Senna Plus) 2 tab PO BID [facility] Last Admin: 07/12/19 09:14 Dose: 2 tab Simvastatin (Zocor) 20 mg PO DAILY [facility] Last Admin: 07/12/19 09:14 Dose: 20 mg Sodium Chloride (Saline Flush) 10 ml FLUSH ONETIME PRN PRN Reason: IV Flush Last Admin: 07/10/19 13:13 Dose: 10 ml Sucralfate (Carafate) 2 gm PO BEDTIME [facility] Last Admin: 07/11/19 20:52 Dose: 2 gm Tamsulosin HCl (Flomax) 0.4 mg PO BEDTIME [facility] Last Admin: 07/11/19 20:52 Dose: 0.4 mg Vitamin B Complex/Vitamin C (Super B With Vitamin C) 1 cap PO BEDTIME [facility] Last Admin: 07/11/19 20:53 Dose: 1 cap Discontinued Medications Hydrocodone Bitart/Acetaminophen ([place] 325-5 Mg) 1 tab PO Q6H PRN PRN Reason: Pain (moderate 4-6) Aspirin (Aspirin) 324 mg PO ONETIME ONE Stop: 07/10/19 12:33 Last Admin: 07/10/19 12:35 Dose: 324 mg Finasteride (Proscar) 5 mg PO DAILY [facility] Furosemide (Lasix) 40 mg IVPUSH ONETIME ONE Stop: 07/10/19 15:49 Last Admin: 07/10/19 18:07 Dose: 40 mg Sodium Chloride (Normal Saline) 60 mls @ 4 mls/sec IV ONETIME ONE Stop: 07/10/19 13:12 Last Admin: 07/10/19 13:13 Dose: 4 mls/sec Furosemide 100 mg/ Sodium (Chloride) 100 mls @ 5 mls/hr IV CONTINUOUS [facility]; Protocol Magnesium Sulfate/Dextrose 1 (gm/ Premix) 100 mls @ 100 mls/hr IV Q1H [facility] Stop: 07/10/19 19:59 Last Admin: 07/10/19 20:34 Dose: 100 mls/hr Furosemide 100 mg/ Sodium (Chloride) 100 mls @ 3 mls/hr IV CONTINUOUS [facility]; Protocol Last Admin: 07/11/19 14:23 Dose: 3 mls/hr Magnesium Sulfate/Dextrose 1 (gm/ Premix) 100 mls @ 100 mls/hr IV ONETIME ONE Stop: 07/12/19 12:59 Iopamidol (Isovue-370 (76%)) 100 ml IVPUSH ONETIME ONE Stop: 07/10/19 13:12 Last Admin: 07/10/19 13:13 Dose: 100 ml Levothyroxine Sodium (Levothyroxine) 75 mcg PO ACBREAKFAST [facility] Last Admin: 07/12/19 05:16 Dose: Not Given Nitroglycerin (Nitrostat) 0.4 mg SL Q5M PRN PRN Reason: Chest Pain Last Admin: 07/10/19 12:45 Dose: 0.4 mg Non-Formulary Medication (Oxycodone Hcl/Acetaminophen) 1 tab PO Q4HR PRN PRN Reason: Pain Potassium Chloride (Klor-Con M20) 40 meq PO ONETIME ONE Stop: 07/11/19 12:34 Last Admin: 07/11/19 14:00 Dose: 40 meq Potassium Chloride (Klor-Con M20) 20 meq PO ONETIME ONE Stop: 07/12/19 09:01 Last Admin: 07/12/19 09:19 Dose: 20 meq Regadenoson (Lexiscan) 0.4 mg IVPUSH ONETIME ONE Stop: 07/12/19 07:25 Last Admin: 07/12/19 07:49 Dose: 0.4 mg Trazodone HCl (Trazodone) 50 mg PO ONETIME PRN PRN Reason: Insomnia Trazodone HCl (Trazodone) 50 mg PO BEDTIME ONE Stop: 07/11/19 19:35 Last Admin: 07/11/19 20:53 Dose: 50 mg - Exam General: Reports: Alert, Oriented HEENT: Reports: Pupils Equal, Pupils Reactive, EOMI, Mucous Membr. Moist/[place] Neck: Reports: Supple, Trachea Midline, No JVD Lungs: Reports: Clear to Auscultation, Normal Respiratory Effort Cardiovascular: Reports: Regular Rate, Regular Rhythm GI/Abdominal Exam: Normal Bowel Sounds, Soft, Non-Tender, No Organomegaly, No Distention, No Abnormal Bruit Back Exam: Reports: Normal Inspection, Full Range of Motion Extremities: Normal Inspection, Normal Range of Motion, Non-Tender, No Pedal Edema, Normal Capillary Refill Skin: Reports: Warm, Intact Wound/Incisions: Reports: Healing Well Neurological: Reports: No New Focal Deficit Psy/Mental Status: Reports: Alert, Normal Affect, Normal Mood
[2019-07-12 13:03] VITALS: BP 127/78; PULSE 115
--- NOTE | 2019-07-12 13:07 | NM ---
Cardiolite cardiac scan with Lexiscan Technique: I have data stating the patient was stressed utilizing Lexiscan protocol. Stress dose of technetium 99m Cardiolite was 11.8 mCi. Rest dose was 31.8 mCi. SPECT imaging was obtained 3 planes for both portions of the study. Study was also gated. Low-dose chest CT performed to allow for attenuation correction. Comparison: No prior cardiac imaging. Findings: Activity is somewhat patchy within the left ventricular myocardium. Findings are fairly stable between rest and stress study without definite reversible change. Ejection fraction is 61 percent which is normal. Wall thickening is normal. Left ventricular cavity is enlarged. Impression: 1. Enlarged left ventricular cavity. 2. No definite findings of reversible ischemia. 3. Normal ejection fraction at 61 percent. Diagnostic code #3 This report was dictated in MDT
--- NOTE | 2019-07-12 16:16 | DISCH ---
ADMISSION DATE: 07/10/2019 DISCHARGE DATE: 07/12/2019 FINAL DIAGNOSIS: 1. Acute on top of chronic congestive heart failure with diastolic dysfunction (left ventricular ejection fraction 65% on echo from 07/12/2019). 2. Chest pain, rule out myocardial infarction. 3. Coronary artery disease/status post remote stent placement. 4. Gastroesophageal reflux disease. 5. Benign prostatic hyperplasia. 6. Chronic pain syndrome. 7. History of paroxysmal atrial fibrillation, on anticoagulation with Eliquis. The patient was seen, examined, and discussed by me with Dr. Dinesh Strauss PA-C. HOSPITAL COURSE: The patient is a 69-year-old white male who was admitted to the hospital on 07/10/2019 from emergency room where the patient presented complaining of substernal chest pain. Further workup though revealed that the patient has acute on top of chronic CHF. The patient was admitted to med/surg floor telemetry. He was on Lasix drip and had nice diuresis with negative fluid balance, I believe more than 6 L. The chest pain resolved in the emergency room after nitroglycerin and aspirin. We did all 3 sets of cardiac enzymes and EKGs. On 07/12/2019, the patient had Lexiscan Cardiolite stress test done that is negative for stress-induced myocardial ischemia in clinical and EKG parts of the test and I believe will be negative even nuclear part of the test (even though we are still awaiting final report at the moment of dictation of this note). Overall, the patient feels well. Acute CHF resolved. No more chest pain. The patient will be discharged home under care of primary physician and the patient's lawn caretaker in satisfactory condition. For details of the patient's history, clinical presentation, test results, physical exam, course of hospital stay, discharge medications and recommendations, please see discharge summary and discharge instructions prepared by Dinesh Strauss PA-C. DISCHARGE MEDICATIONS: DIET: ACTIVITY: FOLLOW-UP: CONDITION ON DISCHARGE: MMODAL /[id number]
== END 2019-07-12 14:50 | disposition home health service (06) | DRG 292 ==
LOC: JD.ED 12:16 → JD.MS 15:15
PROVIDERS: ADMIT Internal Medicine; ATTEND Internal Medicine
DX: R07.9 Chest pain, unspecified (principal); I25.10 Atherosclerotic heart disease of native coronary artery without angina pectoris; I11.0 Hypertensive heart disease with heart failure; I10 Essential (primary) hypertension; J96.10 Chronic respiratory failure, unspecified whether with hypoxia or hypercapnia; I50.33 Acute on chronic diastolic (congestive) heart failure; E66.9 Obesity, unspecified; I25.110 Atherosclerotic heart disease of native coronary artery with unstable angina pectoris; G89.4 Chronic pain syndrome; K21.9 Gastro-esophageal reflux disease without esophagitis; N40.0 Benign prostatic hyperplasia without lower urinary tract symptoms; F17.210 Nicotine dependence, cigarettes, uncomplicated; Z79.01 Long term (current) use of anticoagulants; I48.0 Paroxysmal atrial fibrillation; G47.33 Obstructive sleep apnea (adult) (pediatric); E78.5 Hyperlipidemia, unspecified; Z90.5 Acquired absence of kidney; E03.9 Hypothyroidism, unspecified; F17.200 Nicotine dependence, unspecified, uncomplicated; M19.90 Unspecified osteoarthritis, unspecified site; R13.10 Dysphagia, unspecified; Z95.5 Presence of coronary angioplasty implant and graft; Z91.040 Latex allergy status; Z91.09 Other allergy status, other than to drugs and biological substances; Z79.82 Long term (current) use of aspirin; Z79.890 Hormone replacement therapy; Z79.899 Other long term (current) drug therapy; Z71.6 Tobacco abuse counseling
CPT/HCPCS: 36415; 71045; 71260; 74177; 80053; 84484; 85025; 85610; 85730; 93005; 96360; 96361; 99285; A9270 ×2; J7050; Q9967; 51702; 78452; 78452-26; 80061; 82553; 83690; 83735; 84443; 92610-GN; 93010; 93017; 93306; 94660; 94761; 97110-GO; 97110-GP; 97116-GP; 97162-GP; 97165-GO; A9500; J1940; J2785; J3475

== ENCOUNTER 2019-12-21 09:56 | Day surgery (SDC) | payer MEDICARE, BC ==
[~2019-12-21 09:56] MED LIST: Albuterol 0.083% 2.5 MG/3 ML Neb Soln NEB ONE; Lactated Ringers 1,000 ML IV SCH; Lidocaine 1%/Sod Bicarbonate in NS 8.4% 1 ML Syringe IDERM PRN; Sodium Chloride 0.9% 10 ML Syringe FLUSH PRN
--- NOTE | 2019-12-21 10:40 | PCM.PREANE ---
Preanesthetic Assessment - Procedure Proposed Procedure: EGD Colonoscopy - Anesthesia/Transfusion/Family Hx Anesthesia History: Prior Anesthesia Without Reaction Family History of Anesthesia Reaction: No Transfusion History: Prior Transfusion Without Reaction - Review of Systems General: Chills Pulmonary: Shortness of Breath, Cough, Sputum (Chronic cough productive especially in the mornings. ), Other (FINN and COPD) Cardiovascular: Dyspnea on Exertion, Other (Echo 60-65%, Mild Aortic Stenosis, CAD, CHF, Atrial fibrilation/flutter. ) Gastrointestinal: Other (GERD, Barretts esophagus.) Neurological: Pre-Existing Deficit (Back pain, chronic opioid dependance. ), Other (Opioid use. Spinal cord stimulator, currenlty off. ) Other: Reports: None (Obeisty), Thyroid Problems - Physical Assessment NPO Status Date: 12/20/19 Vital Signs: 156/68 60 22 95% 99.7F Weight: 119 kg ASA Class: 3 Mental Status: Alert & Oriented x3 Airway Class: Mallampati = 2 Dentition: Reports: Dentures Thyro-Mental Finger Breadths: 3 Mouth Opening Finger Breadths: 3 ROM/Head Extension: Full Lungs: Clear to Auscultation, Normal Respiratory Effort, Decreased Breath Sounds Cardiovascular: Irregular Rhythm - Allergies Allergies/Adverse Reactions: Allergies Allergy/AdvReac Type Severity Reaction Status Date / Time adhesive tape Allergy Blisters Verified 12/20/19 12:45 latex Allergy Cannot Verified 12/20/19 12:45 Remember - Anesthesia Plan Pre-Op Medication Ordered: Other (Albuterol Nebulizer) Beta Jose Rafael: Other (Bystolic) Med Last Dose Date: 12/20/19 Med Last Dose Time: 16:00 - Acknowledgements Anesthesia Type Planned: MAC Pt an Appropriate Candidate for the Planned Anesthesia: Yes Alternatives and Risks of Anesthesia Discussed w Pt/Guardian: Yes Pt/Guardian Understands and Agrees with Anesthesia Plan: Yes PreAnesthesia Questionnaire HEENT History: Reports: Hard of Hearing Other HEENT History: hearing loss, R eye surgery, glasses Cardiovascular History: Reports: Afib, CAD, Heart Failure, High Cholesterol, Hypertension, VT, Stents Other Cardiovascular History: diastolic dysfunction, lower extremity edema, aflutter, aortic valve stenosis, wears glasses Respiratory History: Reports: COPD, Pneumonia, Recurrent, Sleep Apnea, Other (See Below) Other Respiratory History: L lung nodule, dypsnea on exertion, pulmonary hypertension, bronchoscopy Gastrointestinal History: Reports: GERD, Helicobacter Pylori, Other (See Below) Other Gastrointestinal History: dysphagia, protein malnutrition, gallstomes Genitourinary History: Reports: BPH, Renal Calculus, Other (See Below) Other Genitourinary History: kidney neoplasm, uric acid nephrolithiasis, nephrectomy left TERMINAL CLERK History: Reports: None Musculoskeletal History: Reports: Back Pain, Chronic, Osteoarthritis Other Musculoskeletal History: spinal stenosis, shoulder apin, myofasical pain, knee pain, laminectomy, stimulator implanted Neurological History: Reports: Other (See Below) Other Neuro History: benign essential tremor, spinal stenosis, colloid cyst of brain, lumbar facet arthropathy, lumbar degenerative disc disease, spinal cord stimulator, laminectomy Psychiatric History: Reports: Other (See Below) Other Psychiatric History: insomnia Endocrine/Metabolic History: Reports: Hypothyroidism, Obesity/BMI 30+ Other Endocrine/Metabolic History: adrenal insufficiency Hematologic History: Reports: None Immunologic History: Reports: None Oncologic (Cancer) History: Reports: Thyroid, Other (See Below) Other Oncologic History: kidney cancer and thyroid cancer - Infectious Disease History Infectious Disease History: Reports: Chicken Pox, Influenza, Measles, Mumps, Pertussis (Whooping Cough) - Past Surgical History Head Surgeries/Procedures: Reports: None HEENT Surgical History: Reports: Eye Surgery, Tonsillectomy Other HEENT Surgeries/Procedures: "food gettins stuck in throat" Cardiovascular Surgical History: Reports: Coronary Artery Stent Respiratory Surgical History: Reports: None GI Surgical History: Reports: Appendectomy, Colonoscopy, EGD Male Surgical History: Reports: Nephrectomy, Vasectomy Endocrine Surgical History: Reports: Thyroidectomy Neurological Surgical History: Reports: Laminectomy, Lumbar Spine, Other (See Below) Musculoskeletal Surgical History: Reports: None Oncologic Surgical History: Reports: Other (See Below) Other Oncologic Surgeries/Procedures: thyroidectomy Dermatological Surgical History: Reports: Other (See Below) - SUBSTANCE USE Smoking Status *Q: Current Every Day Smoker Recreational Drug Use History: No - HOME MEDS Home Medications: Home Meds Potassium Chloride [Klor-Con] 20 meq PO BID 10/06/13 [History] atorvaSTATin [Lipitor] 20 mg PO DAILY 11/17/14 [History] Tamsulosin [Flomax] 0.4 mg PO BEDTIME 05/16/15 [History] Apixaban [Eliquis] 5 mg PO BID 10/03/16 [History] Furosemide [Lasix] 80 mg PO BID 10/03/16 [History] Doxazosin [Cardura] 4 mg PO BEDTIME 11/30/17 [History] Isosorbide Mononitrate [Isosorbide Mononitrate ER] 60 mg PO BEDTIME 11/30/17 [History] Naloxone HCl [Narcan] 4 mg NS ASDIRECTED PRN 11/30/17 [History] Nebivolol [Bystolic] 2.5 mg PO BEDTIME 11/30/17 [History] Pregabalin [Lyrica] 150 mg PO TID 11/30/17 [History] amLODIPine Besylate [Amlodipine Besylate] 10 mg PO BEDTIME 11/30/17 [History] Aspirin [Adult Low Dose Aspirin EC] 81 mg PO DAILY 09/14/18 [History] Escitalopram Oxalate 20 mg PO DAILY 09/14/18 [History] Levothyroxine 200 mcg PO DAILY 09/14/18 [History] Omeprazole 20 mg PO BIDMEALS 09/14/18 [History] Sennosides/Docusate Sodium [Senna-Docusate Sodium Tablet] 2 tab PO BID PRN 09/14/18 [History] Suvorexant [Belsomra] 20 mg PO BEDTIME PRN 09/14/18 [History] Vitamin B Complex 1 tab PO BEDTIME 09/14/18 [History] Albuterol Sulfate [Proair Respiclick] 1 - 2 puff IH Q4H PRN 09/15/18 [History] Nitroglycerin [Nitrostat] 0.4 mg SL ASDIRECTED PRN 09/15/18 [History] Finasteride 5 mg PO DAILY 07/10/19 [History] Allopurinol [Zyloprim] 100 mg PO DAILY 07/11/19 [History] Budesonide/Formoterol Fumarate [Symbicort 160-4.5 Mcg Inhaler] 2 puff INH BID 07/11/19 [History] Cholecalciferol (Vitamin D3) [Vitamin D3] 2,000 unit PO DAILY 07/11/19 [History] busPIRone HCl [Buspirone HCl] 7.5 mg PO BID 07/11/19 [History] oxyCODONE HCl/Acetaminophen [Percocet 10-325 mg Tablet] 1 tab PO Q4H PRN 07/12/19 [History] Levothyroxine Sodium [Synthroid] 25 mcg PO DAILY 12/20/19 [History] Oxycodone Myristate [Xtampza ER] 9 mg PO DAILY 12/20/19 [History] polyethylene glycoL 3350 [MiraLAX] 1 dose PO Q72H 12/20/19 [History] - CURRENT (IN HOUSE) MEDS Current Meds: Current Medications Lactated Ringer's (Ringers, Lactated) 1,000 mls @ 125 mls/hr IV ASDIRECTED BLAYNE Stop: 12/21/19 23:00 Lidocaine/Sodium Bicarbonate (Buffered Lidocaine 1% In Ns 8.4%) 0.25 ml IDERM ONETIME PRN PRN Reason: Prior to IV Start Stop: 12/21/19 23:00 Sodium Chloride (Saline Flush) 10 ml FLUSH ASDIRECTED PRN PRN Reason: Keep Vein Open Stop: 12/21/19 23:00 Discontinued Medications Albuterol (Proventil Neb Soln) 2.5 mg NEB ONETIME ONE Stop: 12/21/19 00:02
[2019-12-21] MEDS ORDERED: Albuterol 0.083% 2.5 MG/3 ML Neb Soln ONE (11:08)
[2019-12-21] MEDS ORDERED: Propofol 200 MG/20 ML SDV ONE ×5 (11:16→12:30)
[2019-12-21] MEDS ORDERED: fentaNYL 100 MCG/2 ML SDV ONE ×2 (11:17→11:49)
[2019-12-21] MEDS ORDERED: Ketamine 500 mg/10 ML MDV ONE (11:17)
[2019-12-21] MEDS ORDERED: Glycopyrrolate 0.2 MG/ML SDV ONE (11:38)
[2019-12-21] MEDS ORDERED: Lidocaine 1% 4 ML ONE (11:39)
--- NOTE | 2019-12-21 13:12 | PCM48HPAN ---
Post Anesthesia Note - EVALUATION WITHIN 48HRS OF ANESTHETIC Vital Signs in Normal Range: Yes Patient Participated in Evaluation: Yes Respiratory Function Stable: Yes Airway Patent: Yes Cardiovascular Function Stable: Yes Hydration Status Stable: Yes Pain Control Satisfactory: Yes Nausea and Vomiting Control Satisfactory: Yes Mental Status Recovered: Yes Vital Signs: Last Vital Signs Temp 37.4 C 12/21/19 09:53 Pulse 60 12/21/19 09:53 Resp 22 H 12/21/19 09:53 BP 156/68 H 12/21/19 09:53 Pulse Ox 95 12/21/19 09:53
--- NOTE | 2019-12-21 13:15 | PCM.OPNOTE ---
- General Post-Op/Procedure Note Date of Surgery/Procedure: 12/21/19 Operative Procedure(s): EGD and colonoscopy Findings: 1. Irregular GE junction 2. Hiatal hernia 3. Bile reflux 4. Hemorrhagic gastritis 5. Melanosis coli 6. Cecal polyp x2 7. Ascending colon polyp 8. Transverse colon polyps x6 9. Descending colon polyps x3 10. Diverticulosis Primary Surgeon: Misti Mistry Anesthesia Provider: Lucero Quintana Pathology: 1. GE junction biopsies 2. Antrum biopsy 3. Cecum polyps x2 4. Ascending colon polyp 5. Transverse colon polyps x6 6. Descending colon polyps x3 Fluid Replacement, Intraop: 700 Output, Urine Amount: 0 EBL in mLs: 0 Complications: none apparent Condition: Good
--- NOTE | 2019-12-21 13:23 | PCM.PRNOTE ---
- Free Text/Narrative Note: Operative Report Date of Procedure: December 21, 2019 Pre Op Diagnosis: history of Torres's esophagus changes, history of colon polyps Post-Op Diagnosis: same Operative Procedures: 1. EGD with biopsy 2. Colonoscopy to the cecum Primary Surgeon: Misti Mistry MD Anesthesia Provider: Lucero Quintana CRNA Anesthesia Technique: MAC IV Fluid Replacement, Intraop: 700cc crystalloid Output, Urine Amount: 0cc EBL in mLs: 0cc Findings: 1. Irregular GE junction 2. Hiatal hernia 3. Bile reflux 4. Hemorrhagic gastritis 5. Melanosis coli 6. Cecal polyp x2 7. Ascending colon polyp 8. Transverse colon polyps x6 9. Descending colon polyps x3 10. Diverticulosis Specimens: 1. GE junction biopsies 2. Antrum biopsy 3. Cecum polyps x2 4. Ascending colon polyp 5. Transverse colon polyps x6 6. Descending colon polyps x3 Drain/Tubes: None Indication: The patient is an 69-year-old gentleman who presented to the clinic with a history of Torres's esophagus changes and history of colon polyps. The patient previously had a poor prep. The patient was consented for a diagnostic EGD and colonoscopy. Risks of bleeding, and perforation were discussed, and the patient agreed to the risks and wished to proceed. Description of the procedure: The patient was taken back to the endoscopy suite, and placed in the left lateral decubitus position. A bite block was placed. The patient was sedated with MAC anesthesia. The Olympus video endoscope was inserted into the oropharynx and guided under direct vision into the esophagus, stomach, and duodenum. The duodenal bulb and second portion of the duodenum were unremarkable. The gastric antrum was inspected and cold biopsy forceps were used to take tissue samples for H. pylori. The scope was withdrawn to the stomach and retroflexed. There was a large amount of bilious fluid in the stomach body. There were changes of gastritis with punctate areas of bleeding. No erosions or ulcers were noted. The scope was withdrawn to the esophagus. A this point we noted a hiatal hernia. Mild Barretts esophagus changes were noted. Biopsies were taken in four quadrants in the GE junction. The endoscope was then withdrawn. Next, anorectal examination was performed. No lesions, masses or hemorrhoids were noted externally or on palpation. The scope was placed into the rectum and advanced to cecum. Upon reaching the cecum, and the patients cecum was entered. There was mild tortuosity of the colon. The ileocecal valve was well visualized and the appendiceal orifice identified. At this point, the scope was slowly withdrawn, paying attention to the mucosa. The patient had good bowel prep, 90% of the mucosa was visible. Two cecal polyps were seen measuring 2-4mm and flat; they were removed with jumbo cold biopsy forceps. A 5mm pedunculated polyp was noted in the ascending colon and removed with a hot snare. There were 6 polyps measuring between 1cm and 3mm, both pedunculated and flat. These were removed with a hot snare and jumbo cold biopsy forceps. Three descending colon polyps measuring 3-4 mm, flat and pedunculated were removed with a hot snare and jumbo cold biopsy forceps. In the rectum, scope was retroflexed and some hemorrhoidal tissue was noted. The scope was placed back in the lumen and excess air was aspirated. The scope was removed. The patient tolerated the procedure very well. Complications: None apparent Condition: The patient was transported to PACU in stable condition. Misti Mistry MD General Surgery
[2019-12-21 14:28] VITALS: BP 163/82; PULSE 59
== END 2019-12-21 14:11 | disposition home or self-care (01) ==
LOC: JD.SDS 09:56
PROVIDERS: ATTEND Surgery
DX: Z12.11 Encounter for screening for malignant neoplasm of colon (principal); D12.0 Benign neoplasm of cecum; D12.3 Benign neoplasm of transverse colon; D12.2 Benign neoplasm of ascending colon; D12.4 Benign neoplasm of descending colon; K63.89 Other specified diseases of intestine; K29.50 Unspecified chronic gastritis without bleeding; K44.9 Diaphragmatic hernia without obstruction or gangrene; K57.30 Diverticulosis of large intestine without perforation or abscess without bleeding; K21.9 Gastro-esophageal reflux disease without esophagitis; K64.9 Unspecified hemorrhoids; I25.10 Atherosclerotic heart disease of native coronary artery without angina pectoris; J44.9 Chronic obstructive pulmonary disease, unspecified; E78.5 Hyperlipidemia, unspecified; I11.0 Hypertensive heart disease with heart failure; E03.9 Hypothyroidism, unspecified; K59.00 Constipation, unspecified; D64.9 Anemia, unspecified; I50.9 Heart failure, unspecified; E66.9 Obesity, unspecified; F17.210 Nicotine dependence, cigarettes, uncomplicated; Z01.812 Encounter for preprocedural laboratory examination; Z20.828 Contact with and (suspected) exposure to other viral communicable diseases; Z98.890 Other specified postprocedural states; Z79.899 Other long term (current) drug therapy; Z79.890 Hormone replacement therapy; Z91.040 Latex allergy status; Z87.19 Personal history of other diseases of the digestive system; Z91.048 Other nonmedicinal substance allergy status; Z68.32 Body mass index [BMI] 32.0-32.9, adult
CPT/HCPCS: 43239; 45380; 45385; 94640; J2001; J2704; J3010; J3490; J7120; U0002; 00813

== ENCOUNTER 2021-01-29 13:20 | Inpatient (IN) | payer MEDICARE, BC ==
[2021-01-29] MEDS ORDERED: Sodium Chloride 0.9% 10 ML Syringe FLUSH PRN ×2 (13:55→15:29)
--- NOTE | 2021-01-29 14:11 | EDM.PDOC ---
ED HPI GENERAL MEDICAL PROBLEM - General Chief Complaint: Cardiovascular Problem Stated Complaint: FLUID IN LUNGS Time Seen by Provider: 01/29/21 13:26 Source of Information: Reports: Patient, Family History Limitations: Reports: No Limitations, Other (ED vital signs reveal a temp of 97.7, pulse of 50, respiratory rate of 17, blood pressure 142/66, pulse ox 94% on room air) - History of Present Illness INITIAL COMMENTS - FREE TEXT/NARRATIVE: 70-year-old male presents to the emergency department after being evaluated by his clinic provider, Dr. Mancini, this morning. Per the patient report he does have a history of COPD and congestive heart failure. Patient was seen by his primary care provider this morning with complaints of chills, increased shortness of breath, cough and generalized body aches that started yesterday. He has received both of his Covid vaccines as well as his booster, Materna. Booster was received in November 2020. Patient states he does have chronic back pain and so generally sleeps in a recliner for approximately the past year or 2. He does have RAHUL stockings in place and states he does take a "water pill". He denies any headache, sore throat, nausea, vomiting or diarrhea. He also does have a open laceration to the dorsum of his left toe however he states this is from a surgical procedure that occurred approximately a year ago. Also complains of pain over the past year to the medial aspect of his left tibial area. Patient's provider reports that he did have a temp of 100.0 at his clinic visit this morning. Patient is complaining of chills. Back Pain Score (Numeric/FACES): 9 - Related Data Allergies Allergy/AdvReac Type Severity Reaction Status Date / Time adhesive tape Allergy Blisters Verified 12/20/19 12:45 latex Allergy Cannot Verified 12/20/19 12:45 Remember Home Meds: Home Meds Potassium Chloride [Klor-Con] 20 meq PO BID 10/06/13 [History] atorvaSTATin [Lipitor] 20 mg PO DAILY 11/17/14 [History] Tamsulosin [Flomax] 0.4 mg PO BEDTIME 05/16/15 [History] Furosemide [Lasix] 80 mg PO BID 10/03/16 [History] Doxazosin [Cardura] 4 mg PO BEDTIME 11/30/17 [History] Isosorbide Mononitrate [Isosorbide Mononitrate ER] 60 mg PO BEDTIME 11/30/17 [History] Naloxone HCl [Narcan] 4 mg NS ASDIRECTED PRN 11/30/17 [History] Nebivolol [Bystolic] 2.5 mg PO BEDTIME 11/30/17 [History] Pregabalin [Lyrica] 150 mg PO TID 11/30/17 [History] amLODIPine Besylate [Amlodipine Besylate] 10 mg PO BEDTIME 11/30/17 [History] Aspirin [Adult Low Dose Aspirin EC] 81 mg PO DAILY 09/14/18 [History] Escitalopram Oxalate 20 mg PO DAILY 09/14/18 [History] Levothyroxine 200 mcg PO DAILY 09/14/18 [History] Omeprazole 20 mg PO BIDMEALS 09/14/18 [History] Sennosides/Docusate Sodium [Senna-Docusate Sodium Tablet] 2 tab PO BID PRN 09/14/18 [History] Suvorexant [Belsomra] 20 mg PO BEDTIME PRN 09/14/18 [History] Vitamin B Complex 1 tab PO BEDTIME 09/14/18 [History] Albuterol Sulfate [Proair Respiclick] 1 - 2 puff IH Q4H PRN 09/15/18 [History] Nitroglycerin [Nitrostat] 0.4 mg SL ASDIRECTED PRN 09/15/18 [History] Finasteride 5 mg PO DAILY 07/10/19 [History] Budesonide/Formoterol Fumarate [Symbicort 160-4.5 Mcg Inhaler] 2 puff INH BID 07/11/19 [History] Cholecalciferol (Vitamin D3) [Vitamin D3] 2,000 unit PO DAILY 07/11/19 [History] allopurinoL [Zyloprim] 100 mg PO DAILY 07/11/19 [History] busPIRone HCl [Buspirone HCl] 7.5 mg PO BID 07/11/19 [History] oxyCODONE HCl/Acetaminophen [Percocet 10-325 mg Tablet] 1 tab PO Q4H PRN 07/12/19 [History] Levothyroxine Sodium [Synthroid] 25 mcg PO DAILY 12/20/19 [History] Oxycodone Myristate [Xtampza ER] 9 mg PO DAILY 12/20/19 [History] polyethylene glycoL 3350 [MiraLAX] 1 dose PO Q72H 12/20/19 [History] Apixaban [Eliquis] 5 mg PO BID #0 12/21/19 [Rx] Past Medical History HEENT History: Reports: Hard of Hearing Other HEENT History: hearing loss, R eye surgery, glasses Cardiovascular History: Reports: Afib, CAD, Heart Failure, High Cholesterol, Hypertension, UT, Stents Other Cardiovascular History: diastolic dysfunction, lower extremity edema, aflutter, aortic valve stenosis, wears glasses Respiratory History: Reports: COPD, Pneumonia, Recurrent, Sleep Apnea, Other (See Below) Other Respiratory History: L lung nodule, dypsnea on exertion, pulmonary hypertension, bronchoscopy Gastrointestinal History: Reports: GERD, Helicobacter Pylori, Other (See Below) Other Gastrointestinal History: dysphagia, protein malnutrition, gallstomes Genitourinary History: Reports: BPH, Renal Calculus, Other (See Below) Other Genitourinary History: kidney neoplasm, uric acid nephrolithiasis, nephrectomy left [employer]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: Reports: None Musculoskeletal History: Reports: Back Pain, Chronic, Osteoarthritis Other Musculoskeletal History: spinal stenosis, shoulder apin, myofasical pain, knee pain, laminectomy, stimulator implanted Neurological History: Reports: Other (See Below) Other Neuro History: benign essential tremor, spinal stenosis, colloid cyst of brain, lumbar facet arthropathy, lumbar degenerative disc disease, spinal cord stimulator, laminectomy Psychiatric History: Reports: Other (See Below) Other Psychiatric History: insomnia Endocrine/Metabolic History: Reports: Hypothyroidism, Obesity/BMI 30+ Other Endocrine/Metabolic History: adrenal insufficiency Hematologic History: Reports: None Immunologic History: Reports: None Oncologic (Cancer) History: Reports: Thyroid, Other (See Below) Other Oncologic History: kidney cancer and thyroid cancer - Infectious Disease History Infectious Disease History: Reports: Chicken Pox, Influenza, Measles, Mumps, Pertussis (Whooping Cough) - Past Surgical History Head Surgeries/Procedures: Reports: None HEENT Surgical History: Reports: Eye Surgery, Tonsillectomy Other HEENT Surgeries/Procedures: "food gettins stuck in throat" Cardiovascular Surgical History: Reports: Coronary Artery Stent Respiratory Surgical History: Reports: None GI Surgical History: Reports: Appendectomy, Colonoscopy, EGD Male Surgical History: Reports: Nephrectomy, Vasectomy Endocrine Surgical History: Reports: Thyroidectomy Neurological Surgical History: Reports: Laminectomy, Lumbar Spine, Other (See Below) Musculoskeletal Surgical History: Reports: None Oncologic Surgical History: Reports: Other (See Below) Other Oncologic Surgeries/Procedures: thyroidectomy Dermatological Surgical History: Reports: Other (See Below) Social & Family History - Family History Family Medical History: No Pertinent Family History - Caffeine Use Caffeine Use: Reports: Coffee, Soda Other Caffeine Use: a couple cups coffee a day and sometimes a pop - Living Situation & Occupation Living situation: Reports: , with Spouse, Extended Care Facility Occupation: Retired ED ROS GENERAL - Review of Systems Review Of Systems: Comprehensive ROS is negative, except as noted in HPI. ED EXAM, GENERAL - Physical Exam Exam: See Below Exam Limited By: No Limitations General Appearance: Alert, WD/WN, Mild Distress Ears: Normal External Exam, Hearing Grossly Normal Nose: Normal Inspection Throat/Mouth: Normal Inspection, Normal Lips, Normal Voice, No Airway Compromise Head: Atraumatic Neck: Normal Inspection, Supple Respiratory/Chest: Chest Non-Tender, Respiratory Distress (Mild), Decreased Breath Sounds, Crackles (Fine crackles noted to the bilateral bases), Wheezing (Fine expiratory wheeze noted bilaterally) Cardiovascular: Normal Peripheral Pulses, Regular Rate, Rhythm, No Murmur. No: No Edema (1+ edema noted to the bilateral lower extremities) Peripheral Pulses: 2+: Radial (L), Radial (R), Dorsalis Pedis (L), Dorsalis Pedis (R) GI/Abdominal: Normal Bowel Sounds, Soft, Non-Tender, No Distention (Male) Exam: Deferred Rectal (Males) Exam: Deferred Back Exam: Normal Inspection Extremities: Pedal Edema (1+ to bilateral lower extremities), Other (Open scabbed dried laceration noted to the dorsal left active left great toe). No: Non-Tender (Tenderness noted to left medial tibial area) Neurological: Alert, Oriented, Normal Cognition Psychiatric: Normal Affect, Normal Mood Skin Exam: Warm, Dry, Normal Color, No Rash, Wound/Incision (Old scabbed dry laceration noted to the dorsal aspect of left great toe) Lymphatic: No Adenopathy #1 Interpretation EKG Date: 01/29/21 Time: 14:02 Rhythm: A-Fib Rate (Beats/Min): 66 [place]: Normal P-Wave: Absent QRS: Normal ST-T: Normal QT: Normal EKG Interpretation Comments: Per Dr. Banegas interpretation: Atrial fib with a rate of 44-82; Q waves V1 and V2old anteroseptal UT; decreased voltage precordial leads; minimal LAD (-1 degree); QTC normal Course - Vital Signs Text/Narrative:: As stated above, patient presents with significant past medical history of COPD, CHF, chronic back pain and open laceration to the dorsum of his left toe. Recent chills that started last evening with increasing shortness of breath and cough as well as body aches. Physical exam reveals an ill-appearing male who does appear to be dyspneic at rest. He is awake alert and oriented. Skin is warm to touch. Lung sounds appreciate fine crackles noted to the bilateral bases with a fine expiratory wheeze. States he did use his albuterol nebulizer treatment at about 630 this morning. He does have 1+ edema noted to the bilateral lower extremities. There is an old scabbed, crusted laceration noted to the dorsum of his left great toe. There is no increased redness, swelling or drainage noted around the area. There is a slight area of erythema noted to the medial aspect of the left tibia and it is warm to touch. Will obtain lab studies to include a CBC, CMP, C-reactive protein, magnesium, troponin, D-dimer, blood cultures x2, lactic acid and proBNP. We will also obtain a portable chest x-ray, EKG and Covid swabs. Last Recorded V/S: Last Vital Signs Temp 97.7 F 01/29/21 13:33 Pulse 50 L 01/29/21 13:33 Resp 17 01/29/21 13:33 BP 142/66 H 01/29/21 13:33 Pulse Ox 89 L 01/29/21 16:26 - Orders/Labs/Meds Orders: Active Orders 24 hr Category Date Time Status Patient Status [ADT] Routine ADT 01/29/21 16:55 Active Bedrest Bedside Commode [RC] ASDIRECTED Care 01/29/21 16:55 Active Cardiac Monitoring [RC] CONTINUOUS Care 01/29/21 16:55 Active Intake and Output [RC] 04,16 Care 01/29/21 16:55 Active Oxygen Therapy [RC] PRN Care 01/29/21 16:55 Active Pulse Oximetry [RC] CONTINUOUS Care 01/29/21 16:55 Active RT Aerosol Therapy [RC] ASDIRECTED Care 01/29/21 16:01 Active RT Aerosol Therapy [RC] ASDIRECTED Care 01/29/21 16:55 Active RT Aerosol Therapy [RC] ASDIRECTED Care 01/29/21 16:55 Active VTE/DVT Education [RC] PER UNIT ROUTINE Care 01/29/21 16:55 Active Vital Signs [RC] Q4HR Care 01/29/21 16:55 Active Consult to Speech Language Pathology [FLIGHT SURVEYOR Evaluation Cons 01/29/21 16:59 Active and Treatment] [CONS] Routine OT Evaluation and Treatment [CONS] Routine Cons 01/29/21 16:55 Active PT Evaluation and Treatment [CONS] Routine Cons 01/29/21 16:55 Active BLOOD CULTURE [MREF] Stat Lab 01/29/21 14:25 Received BLOOD CULTURE [MREF] Stat Lab 01/29/21 14:31 Received BLOOD CULTURE [MREF] Stat Lab 01/29/21 16:55 Ordered BLOOD CULTURE [MREF] Stat Lab 01/29/21 17:20 Received CBC WITH AUTO DIFF [HEME] DAILY Lab 01/30/21 05:00 Ordered CBC WITH AUTO DIFF [HEME] DAILY Lab 01/31/21 05:00 Ordered CBC WITH AUTO DIFF [HEME] DAILY Lab 02/01/21 05:00 Ordered CBC WITH AUTO DIFF [HEME] DAILY Lab 02/02/21 05:00 Ordered COMPREHENSIVE METABOLIC PN,CMP [CHEM] DAILY Lab 01/30/21 05:00 Ordered COMPREHENSIVE METABOLIC PN,CMP [CHEM] DAILY Lab 01/31/21 05:00 Ordered COMPREHENSIVE METABOLIC PN,CMP [CHEM] DAILY Lab 02/01/21 05:00 Ordered COMPREHENSIVE METABOLIC PN,CMP [CHEM] DAILY Lab 02/02/21 05:00 Ordered RESPIRATORY CULT [MREF] Stat Lab 01/29/21 16:55 Ordered UA RFX JARAD AND CULT IF INDIC [URIN] Stat Lab 01/29/21 13:56 Ordered Acetaminophen [TylenoL] Med 01/29/21 16:55 Active 650 mg PO Q6H PRN Albuterol/Ipratropium [DuoNeb 3.0-0.5 MG/3 ML] Med 01/29/21 16:55 Active 3 ml NEB Q4HRRT PRN Apixaban [Eliquis] Med 01/29/21 17:15 Ordered 5 mg PO BID Aspirin [Halfprin] Med 01/30/21 09:00 Ordered 81 mg PO DAILY Budesonide/Formoterol Med 01/29/21 17:15 Ordered 2 puff INH BID Cholecalciferol (Vitamin D3) [Vitamin D3] Med 01/30/21 09:00 Ordered 2,000 unit PO DAILY Docusate Sodium [Colace] Med 01/29/21 16:55 Active 100 mg PO BID PRN Docusate Sodium/Sennosides [Senna Plus] Med 01/29/21 17:00 Ordered 2 tab PO BID PRN Doxazosin [Cardura] Med 01/29/21 21:00 Ordered 4 mg PO BEDTIME Enoxaparin [Lovenox] Med 01/30/21 09:00 Pending 40 mg SUBCUT DAILY Escitalopram Med 01/29/21 17:15 Ordered 20 mg PO DAILY Finasteride [Proscar] Med 01/29/21 17:15 Ordered 5 mg PO DAILY Furosemide [Lasix] Med 01/30/21 09:00 Active 40 mg IVPUSH BID Isosorbide Mononitrate [Imdur] Med 01/29/21 21:00 Ordered 60 mg PO BEDTIME Levothyroxine Med 01/30/21 09:00 Ordered 200 mcg PO DAILY Levothyroxine Med 01/30/21 09:00 Ordered 25 mcg PO DAILY Morphine Med 01/29/21 16:55 Active 2 mg IVPUSH Q4H PRN Naloxone HCl [Narcan] Med 01/29/21 17:00 Ordered 4 mg NS ASDIRECTED PRN Nebivolol [Bystolic] Med 01/29/21 21:00 Ordered 2.5 mg PO BEDTIME Omeprazole Med 01/29/21 17:00 Ordered 20 mg PO BIDMEALS Potassium Chloride Med 01/29/21 21:00 Ordered 20 meq PO BID Pregabalin Med 01/29/21 21:00 Ordered 150 mg PO TID Promethazine [Phenergan] 12.5 mg Med 01/29/21 16:55 Active Sodium Chloride 0.9% [Normal Saline] 50 ml IV Q6H Sodium Chloride 0.9% [Normal Saline] 100 ml Med 01/29/21 16:00 Active IV ASDIRECTED Sodium Chloride 0.9% [Saline Flush] Med 01/29/21 13:55 Active 10 ml FLUSH ASDIRECTED PRN Sodium Chloride 0.9% [Saline Flush] Med 01/29/21 15:29 Active 10 ml FLUSH ONETIME PRN Suvorexant [Belsomra] Med 01/29/21 17:00 Ordered 20 mg PO BEDTIME PRN Tamsulosin [Flomax] Med 01/29/21 21:00 Ordered 0.4 mg PO BEDTIME allopurinoL [Zyloprim] Med 01/30/21 09:00 Pending 100 mg PO DAILY amLODIPine [Norvasc] Med 01/29/21 21:00 Ordered 10 mg PO BEDTIME atorvaSTATin [Lipitor] Med 01/30/21 09:00 Ordered 20 mg PO DAILY busPIRone HCl [Buspirone HCl] Med 01/29/21 21:00 Ordered 7.5 mg PO BID oxyCODONE Med 01/29/21 16:55 Ordered 5 mg PO Q6H PRN polyethylene glycoL 3350 [MiraLAX] Med 01/29/21 17:00 Ordered DOSE gm PO Q72H Blood Culture x2 Reflex Set [OM.PC] Stat Oth 01/29/21 13:56 Ordered Saline Lock Insert [OM.PC] Stat Oth 01/29/21 13:55 Ordered Resuscitation Status Routine Resus Stat 01/29/21 16:55 Ordered EKG 12 Lead [EK] Stat Ther 01/29/21 13:44 Ordered Medication Orders Acetaminophen (Acetaminophen 325 Mg Tab) 650 mg PO Q6H PRN PRN Reason: Pain (Mild 1-3)/fever Albuterol/Ipratropium (Albuterol/Ipratropium 3.0-0.5 Mg/3 Ml Neb Soln) 3 ml NEB Q4HRRT PRN PRN Reason: Shortness Of Breath/wheezing Allopurinol (Allopurinol 100 Mg Tab) 100 mg PO DAILY [facility] Amlodipine Besylate (Amlodipine 10 Mg Tab) 10 mg PO BEDTIME [facility] Apixaban (Apixaban 5 Mg Tab) 5 mg PO BID [facility] Aspirin (Aspirin 81 Mg Tab.Ec) 81 mg PO DAILY [facility] Atorvastatin Calcium (Atorvastatin 20 Mg Tab) 20 mg PO DAILY [facility] Docusate Sodium (Docusate Sodium 100 Mg Cap) 100 mg PO BID PRN PRN Reason: Constipation Doxazosin Mesylate (Doxazosin 4 Mg Tab) 4 mg PO BEDTIME [facility] Enoxaparin Sodium (Enoxaparin 40 Mg/0.4 Ml Syringe) 40 mg SUBCUT DAILY [facility] Finasteride (Finasteride 5 Mg Tab) 5 mg PO DAILY [facility] Furosemide (Furosemide 40 Mg/4 Ml Vial) 40 mg IVPUSH BID [facility] Hydralazine HCl (Hydralazine 20 Mg/Ml Sdv) 10 mg IVPUSH Q4H PRN PRN Reason: Hypertension Sodium Chloride (Normal Saline) 100 mls @ 60 mls/hr IV ASDIRECTED [facility] Last Admin: 01/29/21 15:50 Dose: 60 mls/hr Documented by: MISSY Promethazine HCl 12.5 mg/ (Sodium Chloride) 50.5 mls @ 100 mls/hr IV Q6H PRN PRN Reason: Nausea/Vomiting Isosorbide Mononitrate (Isosorbide Mononitrate 60 Mg Tab.Er) 60 mg PO BEDTIME [facility] Levothyroxine Sodium (Levothyroxine 200 Mcg Tab) 200 mcg PO DAILY [facility] Levothyroxine Sodium (Levothyroxine 25 Mcg Tab) 25 mcg PO DAILY [facility] Morphine Sulfate (Morphine 2 Mg/Ml Syringe) 2 mg IVPUSH Q4H PRN PRN Reason: Pain (severe 7-10) Stop: 01/30/21 16:55 Non-Formulary Medication (Budesonide/Formoterol) 2 puff INH BID [facility] Non-Formulary Medication (Buspirone Hcl [Buspirone Hcl]) 7.5 mg PO BID [facility] Non-Formulary Medication (Cholecalciferol (Vitamin D3) [Vitamin D3]) 2,000 unit PO DAILY [facility] Non-Formulary Medication (Escitalopram) 20 mg PO DAILY [facility] Non-Formulary Medication (Naloxone Hcl [Narcan]) 4 mg NS ASDIRECTED PRN PRN Reason: Opioid Overdose Non-Formulary Medication (Nebivolol [Bystolic]) 2.5 mg PO BEDTIME [facility] Non-Formulary Medication (Omeprazole) 20 mg PO BIDMEALS [facility] Non-Formulary Medication (Potassium Chloride) 20 meq PO BID [facility] Non-Formulary Medication (Pregabalin) 150 mg PO TID [facility] Non-Formulary Medication (Suvorexant [Belsomra]) 20 mg PO BEDTIME PRN PRN Reason: Insomnia Oxycodone HCl (Oxycodone 5 Mg Tab) 5 mg PO Q6H PRN PRN Reason: Pain (moderate 4-6) Polyethylene Glycol (Polyethylene Glycol 3350 Powder 17 Gm Packet) gm PO Q72H [facility] Senna/Docusate Sodium (Docusate Sodium/Sennosides 50-8.6 Mg Tab) 2 tab PO BID PRN PRN Reason: Constipation Sodium Chloride (Sodium Chloride 0.9% 10 Ml Syringe) 10 ml FLUSH ASDIRECTED PRN PRN Reason: Keep Vein Open Last Admin: 01/29/21 14:45 Dose: 10 ml Documented by: KELSIE Sodium Chloride (Sodium Chloride 0.9% 10 Ml Syringe) 10 ml FLUSH ONETIME PRN PRN Reason: Keep Vein Open Last Admin: 01/29/21 15:47 Dose: 10 ml Documented by: MISSY Tamsulosin HCl (Tamsulosin 0.4 Mg Cap.Er) 0.4 mg PO BEDTIME [facility] Labs: Laboratory Tests 01/29/21 01/29/21 01/29/21 Range/Units 13:55 13:55 14:25 WBC 5.21 (4.23-9.07) K/mm3 RBC 4.20 L (4.63-6.08) M/mm3 Hgb 12.9 L (13.7-17.5) gm/dl Hct 39.9 L (40.1-51.0) % MCV 95.0 H D (79.0-92.2) fl MCH 30.7 (25.7-32.2) pg MCHC 32.3 (32.2-35.5) g/dl RDW Std Deviation 49.2 H (35.1-43.9) fL Plt Count 101 L (163-337) K/mm3 MPV 11.5 (9.4-12.3) fl Neut % (Auto) 71.2 H (34.0-67.9) % Lymph % (Auto) 15.9 L (21.8-53.1) % [place] % (Auto) 11.9 (5.3-12.2) % Eos % (Auto) 0.6 L (0.8-7.0) Baso % (Auto) 0.4 (0.1-1.2) % Neut # (Auto) 3.71 (1.78-5.38) K/mm3 Lymph # (Auto) 0.83 L (1.32-3.57) K/mm3 [place] # (Auto) 0.62 (0.30-0.82) K/mm3 Eos # (Auto) 0.03 L (0.04-0.54) K/mm3 Baso # (Auto) 0.02 (0.01-0.08) K/mm3 D-Dimer, Quantitative (0.19-0.50) mg/L Sodium (136-145) mEq/L Potassium (3.5-5.1) mEq/L Chloride (98-107) mEq/L Carbon Dioxide (21-32) mEq/L Anion Gap (5-15) BUN (7-18) mg/dL Creatinine (0.7-1.3) mg/dL Est Cr Clr Drug Dosing mL/min Estimated GFR (MDRD) (>60) mL/min BUN/Creatinine Ratio (14-18) Glucose (70-99) mg/dL Lactic Acid (0.4-2.0) mmol/L Calcium (8.5-10.1) mg/dL Magnesium (1.8-2.4) mg/dL Total Bilirubin (0.2-1.0) mg/dL AST (15-37) U/L ALT (16-63) U/L Alkaline Phosphatase (46-116) U/L Troponin I (0.00-0.056) ng/mL C-Reactive Protein (<1.0) mg/dL NT-Pro-B Natriuret Pep (0-125) pg/mL Total Protein (6.4-8.2) g/dl Albumin (3.4-5.0) g/dl Globulin gm/dL Albumin/Globulin Ratio (1-2) Influenza Type A RNA Negative (NEGATIVE) RSV RNA (INAAT) Positive H (NEGATIVE) Influenza Type B RNA Negative (NEGATIVE) SARS-CoV-2 RNA (JESSICA) Negative (NEGATIVE) 01/29/21 01/29/21 01/29/21 Range/Units 14:25 14:25 14:25 WBC (4.23-9.07) K/mm3 RBC (4.63-6.08) M/mm3 Hgb (13.7-17.5) gm/dl Hct (40.1-51.0) % MCV (79.0-92.2) fl MCH (25.7-32.2) pg MCHC (32.2-35.5) g/dl RDW Std Deviation (35.1-43.9) fL Plt Count (163-337) K/mm3 MPV (9.4-12.3) fl Neut % (Auto) (34.0-67.9) % Lymph % (Auto) (21.8-53.1) % [place] % (Auto) (5.3-12.2) % Eos % (Auto) (0.8-7.0) Baso % (Auto) (0.1-1.2) % Neut # (Auto) (1.78-5.38) K/mm3 Lymph # (Auto) (1.32-3.57) K/mm3 [place] # (Auto) (0.30-0.82) K/mm3 Eos # (Auto) (0.04-0.54) K/mm3 Baso # (Auto) (0.01-0.08) K/mm3 D-Dimer, Quantitative 0.98 H (0.19-0.50) mg/L Sodium 134 L (136-145) mEq/L Potassium 4.6 (3.5-5.1) mEq/L Chloride 102 (98-107) mEq/L Carbon Dioxide 24 (21-32) mEq/L Anion Gap 12.6 (5-15) BUN 13 (7-18) mg/dL Creatinine 1.3 (0.7-1.3) mg/dL Est Cr Clr Drug Dosing 62.29 mL/min Estimated GFR (MDRD) 54 (>60) mL/min BUN/Creatinine Ratio 10.0 L (14-18) Glucose 99 (70-99) mg/dL Lactic Acid (0.4-2.0) mmol/L Calcium 9.7 (8.5-10.1) mg/dL Magnesium 2.0 (1.8-2.4) mg/dL Total Bilirubin 0.3 (0.2-1.0) mg/dL AST 12 L (15-37) U/L ALT 10 L (16-63) U/L Alkaline Phosphatase 90 (46-116) U/L Troponin I < 0.017 (0.00-0.056) ng/mL C-Reactive Protein 2.4 H* (<1.0) mg/dL NT-Pro-B Natriuret Pep 1924 H (0-125) pg/mL Total Protein 6.9 (6.4-8.2) g/dl Albumin 3.2 L (3.4-5.0) g/dl Globulin 3.7 gm/dL Albumin/Globulin Ratio 0.9 L (1-2) Influenza Type A RNA (NEGATIVE) RSV RNA (INAAT) (NEGATIVE) Influenza Type B RNA (NEGATIVE) SARS-CoV-2 RNA (JESSICA) (NEGATIVE) 01/29/21 Range/Units 14:25 WBC (4.23-9.07) K/mm3 RBC (4.63-6.08) M/mm3 Hgb (13.7-17.5) gm/dl Hct (40.1-51.0) % MCV (79.0-92.2) fl MCH (25.7-32.2) pg MCHC (32.2-35.5) g/dl RDW Std Deviation (35.1-43.9) fL Plt Count (163-337) K/mm3 MPV (9.4-12.3) fl Neut % (Auto) (34.0-67.9) % Lymph % (Auto) (21.8-53.1) % [place] % (Auto) (5.3-12.2) % Eos % (Auto) (0.8-7.0) Baso % (Auto) (0.1-1.2) % Neut # (Auto) (1.78-5.38) K/mm3 Lymph # (Auto) (1.32-3.57) K/mm3 [place] # (Auto) (0.30-0.82) K/mm3 Eos # (Auto) (0.04-0.54) K/mm3 Baso # (Auto) (0.01-0.08) K/mm3 D-Dimer, Quantitative (0.19-0.50) mg/L Sodium (136-145) mEq/L Potassium (3.5-5.1) mEq/L Chloride (98-107) mEq/L Carbon Dioxide (21-32) mEq/L Anion Gap (5-15) BUN (7-18) mg/dL Creatinine (0.7-1.3) mg/dL Est Cr Clr Drug Dosing mL/min Estimated GFR (MDRD) (>60) mL/min BUN/Creatinine Ratio (14-18) Glucose (70-99) mg/dL Lactic Acid 1.0 (0.4-2.0) mmol/L Calcium (8.5-10.1) mg/dL Magnesium (1.8-2.4) mg/dL Total Bilirubin (0.2-1.0) mg/dL AST (15-37) U/L ALT (16-63) U/L Alkaline Phosphatase (46-116) U/L Troponin I (0.00-0.056) ng/mL C-Reactive Protein (<1.0) mg/dL NT-Pro-B Natriuret Pep (0-125) pg/mL Total Protein (6.4-8.2) g/dl Albumin (3.4-5.0) g/dl Globulin gm/dL Albumin/Globulin Ratio (1-2) Influenza Type A RNA (NEGATIVE) RSV RNA (INAAT) (NEGATIVE) Influenza Type B RNA (NEGATIVE) SARS-CoV-2 RNA (JESSICA) (NEGATIVE) Meds: Medications Generic Name Dose Route Start Last Admin Trade Name Freq PRN Reason Stop Dose Admin Acetaminophen 650 mg 01/29/21 16:55 Acetaminophen 325 Mg Tab PO Q6H PRN Pain (Mild 1-3)/fever Albuterol/Ipratropium 3 ml 01/29/21 16:55 Albuterol/Ipratropium 3.0-0.5 Mg/3 Ml Neb Soln NEB Q4HRRT PRN Shortness Of Breath/wheezing Allopurinol 100 mg 01/30/21 09:00 Allopurinol 100 Mg Tab PO DAILY [facility] Amlodipine Besylate 10 mg 01/29/21 21:00 Amlodipine 10 Mg Tab PO BEDTIME [facility] Apixaban 5 mg 01/29/21 17:15 Apixaban 5 Mg Tab PO BID [facility] Aspirin 81 mg 01/30/21 09:00 Aspirin 81 Mg Tab.Ec PO DAILY [facility] Atorvastatin Calcium 20 mg 01/30/21 09:00 Atorvastatin 20 Mg Tab PO DAILY [facility] Docusate Sodium 100 mg 01/29/21 16:55 Docusate Sodium 100 Mg Cap PO BID PRN Constipation Doxazosin Mesylate 4 mg 01/29/21 21:00 Doxazosin 4 Mg Tab PO BEDTIME [facility] Enoxaparin Sodium 40 mg 01/30/21 09:00 Enoxaparin 40 Mg/0.4 Ml Syringe SUBCUT DAILY [facility] Finasteride 5 mg 01/29/21 17:15 Finasteride 5 Mg Tab PO DAILY [facility] Furosemide 40 mg 01/30/21 09:00 Furosemide 40 Mg/4 Ml Vial IVPUSH BID [facility] Hydralazine HCl 10 mg 01/29/21 17:25 Hydralazine 20 Mg/Ml Sdv IVPUSH Q4H PRN Hypertension Sodium Chloride 100 mls @ 60 mls/hr 01/29/21 16:00 01/29/21 15:50 Normal Saline IV 60 mls/hr ASDIRECTED [facility]LAYNE Administration Promethazine HCl 12.5 mg/ 50.5 mls @ 100 mls/hr 01/29/21 16:55 Sodium Chloride IV Q6H PRN Nausea/Vomiting Isosorbide Mononitrate 60 mg 01/29/21 21:00 Isosorbide Mononitrate 60 Mg Tab.Er PO BEDTIME [facility] Levothyroxine Sodium 200 mcg 01/30/21 09:00 Levothyroxine 200 Mcg Tab PO DAILY [facility] Levothyroxine Sodium 25 mcg 01/30/21 09:00 Levothyroxine 25 Mcg Tab PO DAILY [facility] Morphine Sulfate 2 mg 01/29/21 16:55 Morphine 2 Mg/Ml Syringe IVPUSH 01/30/21 16:55 Q4H PRN Pain (severe 7-10) Non-Formulary Medication 2 puff 01/29/21 17:15 Budesonide/Formoterol INH BID [facility] Non-Formulary Medication 7.5 mg 01/29/21 21:00 Buspirone Hcl [Buspirone Hcl] PO BID [facility] Non-Formulary Medication 2,000 unit 01/30/21 09:00 Cholecalciferol (Vitamin D3) [Vitamin D3] PO DAILY [facility] Non-Formulary Medication 20 mg 01/29/21 17:15 Escitalopram PO DAILY [facility] Non-Formulary Medication 4 mg 01/29/21 17:00 Naloxone Hcl [Narcan] NS ASDIRECTED PRN Opioid Overdose Non-Formulary Medication 2.5 mg 01/29/21 21:00 Nebivolol [Bystolic] PO BEDTIME [facility] Non-Formulary Medication 20 mg 01/29/21 17:00 Omeprazole PO BIDMEALS [facility] Non-Formulary Medication 20 meq 01/29/21 21:00 Potassium Chloride PO BID [facility] Non-Formulary Medication 150 mg 01/29/21 21:00 Pregabalin PO TID [facility] Non-Formulary Medication 20 mg 01/29/21 17:00 Suvorexant [Belsomra] PO BEDTIME PRN Insomnia Oxycodone HCl 5 mg 01/29/21 16:55 Oxycodone 5 Mg Tab PO Q6H PRN Pain (moderate 4-6) Polyethylene Glycol gm 01/29/21 17:00 Polyethylene Glycol 3350 Powder 17 Gm Packet PO Q72H [facility] Senna/Docusate Sodium 2 tab 01/29/21 17:00 Docusate Sodium/Sennosides 50-8.6 Mg Tab PO BID PRN Constipation Sodium Chloride 10 ml 01/29/21 13:55 01/29/21 14:45 Sodium Chloride 0.9% 10 Ml Syringe FLUSH 10 ml ASDIRECTED PRN Administration Keep Vein Open Sodium Chloride 10 ml 01/29/21 15:29 01/29/21 15:47 Sodium Chloride 0.9% 10 Ml Syringe FLUSH 10 ml ONETIME PRN Administration Keep Vein Open Tamsulosin HCl 0.4 mg 01/29/21 21:00 Tamsulosin 0.4 Mg Cap.Er PO BEDTIME [facility] Discontinued Medications Generic Name Dose Route Start Last Admin Trade Name Freq PRN Reason Stop Dose Admin Albuterol 2.5 mg 01/29/21 16:01 01/29/21 16:26 Albuterol 0.083% 2.5 Mg/3 Ml Neb Soln NEB 01/29/21 16:02 2.5 mg ONETIME ONE Administration Ceftriaxone Sodium 1 gm/ 100 mls @ 200 mls/hr 01/29/21 16:22 01/29/21 15:30 Sodium Chloride IV 01/29/21 16:51 200 mls/hr ONETIME ONE Administration Ceftriaxone Sodium 2 gm/ 100 mls @ 200 mls/hr 01/30/21 09:00 Sodium Chloride IV Q24H [facility] Azithromycin 500 mg/ Sodium 250 mls @ 250 mls/hr 01/29/21 17:30 Chloride IV Q24H [facility] Iopamidol 100 ml 01/29/21 15:29 01/29/21 15:47 Iopamidol 755 Mg/Ml 100 Ml Bottle IVPUSH 01/29/21 15:30 100 ml ONETIME ONE Administration - Re-Assessments/Exams Free Text/Narrative Re-Assessment/Exam: 01/29/21 15:00 Radiologist impression portable view of the chest: Heart is enlarged. Pulmonary vessels are congested which are more prominent than prior exam. Difficult to exclude small area of pneumonia within the right lung base. Bony structures show nothing acute. Electrostimulation wires are seen within thoracic spine. Impression: 1. Cardiomegaly with mild pulmonary vascular congestion. Findings are suspicious for mild CHF. 2. More focal density within the right lung base which could represent focal congestion although difficult to exclude small area of superimposed pneumonia. 01/29/21 15:27 Hematology reveals a WBC of 5.21, hemoglobin 12.9, hematocrit 39.9, platelet count one oh one Coagulation reveals a D-dimer of 0.98 Chemistry reveals a sodium of one thirty-four, potassium 4.6, anion gap 12.6, BUN thirteen, creatinine 1.3, glucose ninety-nine, lactic acid 1.0, magnesium 2.0, AST twelve, ALT ten, troponin less than 0.017, C-reactive protein 2.4, proBNP one thousand nine hundred twenty-four Serology reveals influenza a and B are negative, RSV is positive, Covid test is negative Due to the patient's D-dimer being elevated as well as his history of atrial fibrillation and increased shortness of breath we will send him for a CT scan of his lungs. 01/29/21 16:[address] scan and O2 saturations are 85%. Nursing staff has increased his oxygen to 6 L per nasal cannula. Patient is coughing a significant amount. Reevaluation reveals wheezing noted posteriorly. Will order an albuterol nebulizer treatment. 01/29/21 16:[address] of the chest: Findings: Pulmonary arteries are fairly well opacified. No filling defects are seen to indicate pulmonary embolism. Thoracic aorta shows atherosclerotic calcification without aneurysm. Prominent coronary artery calcification is seen. Small lymph nodes are seen within the mediastinum which are felt to be stable. No pericardial thickening is seen. Visualized upper abdominal structures show nothing acute. Surgical clips are incidentally noted within the upper abdomen. Lung window settings show increased density within the right lung base. Difficult to exclude small area of pneumonia if patient has correlating symptoms. Minimal density is seen within the left lung base which could represent an additional area of pneumonia. Nodules noted within the left lung base measuring about 1.0 cm which is increased in size from previous exam. This nodule is slightly worrisome given its increase in size. Small parenchymal density is also seen within the left upper lung. Bone window settings were reviewed which show diffuse degenerative change within the spine. No acute interosseous abnormalities appreciated. Impression: 1. Small parenchymal densities within both lungs as well as left upper lung. Please correlate if the patient has any symptoms to suggest pneumonia as an etiology. 2. No findings of pulmonary embolism are seen. 3. Other findings believed to be chronic as described above. 4. Slight increase in the nodule within the left lung base. Recommend follow- up chest CT in 6 months to hopefully show this decrease in size. This follow-up study would occur in July 2021. I have ordered for the patient to receive a gram of Rocephin IV. I do believe that this patient needs to be admitted to the hospital for treatment of pneumonia. I have phoned Dr. Leigh, hospitalist to admit the patient. He states he will return my call shortly. 01/29/21 16:[address] Leigh, and he agrees that admit the patient under his service. Patient is agreeable to admit to the hospital. Departure - Departure Time of Disposition: 18:24 Disposition: Admitted As Inpatient 65 Condition: Good Clinical Impression: COPD exacerbation Pneumonia Qualifiers: Pneumonia type: due to unspecified organism Laterality: bilateral Lung location: unspecified part of lung Qualified Code(s): J18.9 - Pneumonia, unspecified organism CHF (congestive heart failure) Qualifiers: Qualified Code(s): I50.33 - Acute on chronic diastolic (congestive) heart failure Sepsis Event Note (ED) - Focused Exam Vital Signs: Vital Signs Temp Pulse Resp BP Pulse Ox Pulse Ox 01/29/21 16:26 89 L 01/29/21 13:33 97.7 F 50 L 17 142/66 H 94 L - My Orders Last 24 Hours: My Active Orders 01/29/21 13:44 EKG 12 Lead [EK] Stat 01/29/21 13:55 Sodium Chloride 0.9% [Saline Flush] 10 ml FLUSH ASDIRECTED PRN Saline Lock Insert [OM.PC] Stat 01/29/21 13:56 UA RFX JARAD AND CULT IF INDIC [URIN] Stat Blood Culture x2 Reflex Set [OM.PC] Stat 01/29/21 14:25 BLOOD CULTURE [MREF] Stat 01/29/21 14:31 BLOOD CULTURE [MREF] Stat 01/29/21 15:29 Sodium Chloride 0.9% [Saline Flush] 10 ml FLUSH ONETIME PRN 01/29/21 16:00 Sodium Chloride 0.9% [Normal Saline] 100 ml IV ASDIRECTED 01/29/21 16:01 RT Aerosol Therapy [RC] ASDIRECTED - Assessment/Plan Last 24 Hours: My Active Orders 01/29/21 13:44 EKG 12 Lead [EK] Stat 01/29/21 13:55 Sodium Chloride 0.9% [Saline Flush] 10 ml FLUSH ASDIRECTED PRN Saline Lock Insert [OM.PC] Stat 01/29/21 13:56 UA RFX JARAD AND CULT IF INDIC [URIN] Stat Blood Culture x2 Reflex Set [OM.PC] Stat 01/29/21 14:25 BLOOD CULTURE [MREF] Stat 01/29/21 14:31 BLOOD CULTURE [MREF] Stat 01/29/21 15:29 Sodium Chloride 0.9% [Saline Flush] 10 ml FLUSH ONETIME PRN 01/29/21 16:00 Sodium Chloride 0.9% [Normal Saline] 100 ml IV ASDIRECTED 01/29/21 16:01 RT Aerosol Therapy [RC] ASDIRECTED
[2021-01-29 14:57] LABS: CORONAVIRUS COVID-19 NAA NEGATIVE (NEGATIVE)
--- NOTE | 2021-01-29 14:57 | CR ---
Chest: Portable view of the chest was obtained. Comparison: Prior chest x-ray of 07/10/19. Heart is enlarged. Pulmonary vessels are congested which are more prominent than on prior exam. Difficult to exclude small area of pneumonia within the right lung base. Bony structures show nothing acute. Electro-stimulating wires are seen within the thoracic spine. Impression: 1. Cardiomegaly with mild pulmonary vascular congestion. Findings are suspicious for mild CHF. 2. More focal density within the right lung base which could represent focal congestion although difficult to exclude small area of superimposed pneumonia. Diagnostic code #3
[2021-01-29] MEDS ORDERED: Iopamidol 755 Mg/ML 100 ML Bottle IVPUSH ONE (15:29)
[2021-01-29] MEDS ORDERED: Sodium Chloride 0.9% 100 ML IV SCH (16:00)
[2021-01-29] MEDS ORDERED: Albuterol 0.083% 2.5 MG/3 ML Neb Soln NEB ONE (16:01)
--- NOTE | 2021-01-29 16:19 | CT ---
CT chest Technique: Multiple axial sections through the chest were obtained. Intravenous contrast was utilized. Study has been performed as a pulmonary angiogram protocol. Comparison: Prior chest CT study of 07/10/19. Findings: Pulmonary arteries are fairly well opacified. No filling defects are seen to indicate pulmonary embolism. Thoracic aorta shows atherosclerotic calcification without aneurysm. Prominent coronary artery calcification is again seen. Small lymph nodes are seen within the mediastinum which are felt to be stable. No pericardial thickening is seen. Visualized upper abdominal structures show nothing acute. Surgical clips are incidentally noted within the upper abdomen. Lung window setting shows increased density within the right lung base. Difficult to exclude a small area of pneumonia if patient has correlating symptoms. Minimal density is seen within the left lung base which could represent an additional area of pneumonia. Nodule is noted within the left lung base measuring about 1.0 cm which is increased in size from previous exam. This nodule is slightly worrisome given its increase in size. Small parenchymal density is also seen within the left upper lung. Bone window settings were reviewed which show diffuse degenerative change within the spine. No acute osseous abnormality is appreciated. Impression: 1. Small parenchymal densities within both lower lungs as well as left upper lung. Please correlate if patient has any symptoms to suggest pneumonia as an etiology. 2. No findings of pulmonary embolism are seen. 3. Other findings believed to be chronic as described above. 4. Slightly increased size of nodule within the left lung base. Recommend follow-up chest CT in 6 months to hopefully show this to decrease in size. This follow-up study would occur in Jul, 2021. Diagnostic code #9
[2021-01-29] MEDS ORDERED: cefTRIAXone 1 GM in Sodium Chloride 0.9% 100 ML IV ONE (16:22)
[2021-01-29] MEDS ORDERED: Morphine 2 MG/ML SYRINGE IVPUSH PRN (16:55)
[2021-01-29] MEDS ORDERED: Docusate Sodium 100 MG Cap PO PRN (16:55)
[2021-01-29] MEDS ORDERED: Promethazine 12.5 MG in Sodium Chloride 0.9% 50 ML IV PRN (16:55)
[2021-01-29] MEDS ORDERED: Non-Formulary Medication 1 Each (Omeprazole 20 MG Cap.Cr) PO SCH (17:00)
[2021-01-29] MEDS ORDERED: Non-Formulary Medication 1 Each (Naloxone Hcl [Narcan] 4 MG Spray) NS PRN (17:00)
[2021-01-29] MEDS ORDERED: Suvorexant [Belsomra] 20 MG Tablet PO PRN (17:00)
[2021-01-29] MEDS ORDERED: Polyethylene Glycol 3350 Powder 17 GM Packet PO SCH (17:00)
--- NOTE | 2021-01-29 17:09 | PCM.HP.2 ---
H&P History of Present Illness - General Date of Service: 01/29/21 Admit Problem/Dx: Admission Diagnosis/Problem Admission Diagnosis/Problem Respiratory failure with hypoxia and hypercapnia Source of Information: Patient, Provider - History of Present Illness Initial Comments - Free Text/Narative: Patient is a 70-year-old male with a history of hypertension, COPD, CHF, atrial fibrillation, and chronic back pain who presented to the ER due to worsening shortness of breath. He also states that he started to have cough and body ache x 2 days. He also has chronic back pain. He went see his PCP Dr. Mancini this morning over there he was found to have temperature of 100. He also has an open laceration to the dorsum of the left toe which, as per patient, resulted from a surgical procedure about 1 year ago. he otherwise denies headache, dizziness, chest pain, abdominal pain, sore throat, or dysuria. He has fully vaccinated against COVID-19. In the ER, he was found to have mild elevation of D-dimer, 0.98. RSV positive. CT angio chest negative for PE. Chest x-ray could not exclude pneumonia Back Pain Score (Numeric/FACES): 9 - Related Data Allergies/Adverse Reactions: Allergies Allergy/AdvReac Type Severity Reaction Status Date / Time adhesive tape Allergy Blisters Verified 12/20/19 12:45 latex Allergy Cannot Verified 12/20/19 12:45 Remember Home Medications: Home Meds Potassium Chloride [Klor-Con] 20 meq PO BID 10/06/13 [History] atorvaSTATin [Lipitor] 20 mg PO DAILY 11/17/14 [History] Tamsulosin [Flomax] 0.4 mg PO BEDTIME 05/16/15 [History] Furosemide [Lasix] 80 mg PO BID 10/03/16 [History] Doxazosin [Cardura] 4 mg PO BEDTIME 11/30/17 [History] Isosorbide Mononitrate [Isosorbide Mononitrate ER] 60 mg PO BEDTIME 11/30/17 [History] Naloxone HCl [Narcan] 4 mg NS ASDIRECTED PRN 11/30/17 [History] Nebivolol [Bystolic] 2.5 mg PO BEDTIME 11/30/17 [History] Pregabalin [Lyrica] 150 mg PO TID 11/30/17 [History] amLODIPine Besylate [Amlodipine Besylate] 10 mg PO BEDTIME 11/30/17 [History] Aspirin [Adult Low Dose Aspirin EC] 81 mg PO DAILY 09/14/18 [History] Escitalopram Oxalate 20 mg PO DAILY 09/14/18 [History] Levothyroxine 200 mcg PO DAILY 09/14/18 [History] Omeprazole 20 mg PO BIDMEALS 09/14/18 [History] Sennosides/Docusate Sodium [Senna-Docusate Sodium Tablet] 2 tab PO BID PRN 09/14/18 [History] Suvorexant [Belsomra] 20 mg PO BEDTIME PRN 09/14/18 [History] Vitamin B Complex 1 tab PO BEDTIME 09/14/18 [History] Albuterol Sulfate [Proair Respiclick] 1 - 2 puff IH Q4H PRN 09/15/18 [History] Nitroglycerin [Nitrostat] 0.4 mg SL ASDIRECTED PRN 09/15/18 [History] Finasteride 5 mg PO DAILY 07/10/19 [History] Budesonide/Formoterol Fumarate [Symbicort 160-4.5 Mcg Inhaler] 2 puff INH BID 07/11/19 [History] Cholecalciferol (Vitamin D3) [Vitamin D3] 2,000 unit PO DAILY 07/11/19 [History] allopurinoL [Zyloprim] 100 mg PO DAILY 07/11/19 [History] busPIRone HCl [Buspirone HCl] 7.5 mg PO BID 07/11/19 [History] oxyCODONE HCl/Acetaminophen [Percocet 10-325 mg Tablet] 1 tab PO Q4H PRN 07/12/19 [History] Levothyroxine Sodium [Synthroid] 25 mcg PO DAILY 12/20/19 [History] Oxycodone Myristate [Xtampza ER] 9 mg PO DAILY 12/20/19 [History] polyethylene glycoL 3350 [MiraLAX] 1 dose PO Q72H 12/20/19 [History] Apixaban [Eliquis] 5 mg PO BID #0 12/21/19 [Rx] Past Medical History HEENT History: Reports: Hard of Hearing Other HEENT History: hearing loss, R eye surgery, glasses Cardiovascular History: Reports: Afib, CAD, Heart Failure, High Cholesterol, Hypertension, OR, Stents Other Cardiovascular History: diastolic dysfunction, lower extremity edema, aflutter, aortic valve stenosis, wears glasses Respiratory History: Reports: COPD, Pneumonia, Recurrent, Sleep Apnea, Other (See Below) Other Respiratory History: L lung nodule, dypsnea on exertion, pulmonary hypertension, bronchoscopy Gastrointestinal History: Reports: GERD, Helicobacter Pylori, Other (See Below) Other Gastrointestinal History: dysphagia, protein malnutrition, gallstomes Genitourinary History: Reports: BPH, Renal Calculus, Other (See Below) Other Genitourinary History: kidney neoplasm, uric acid nephrolithiasis, nephrectomy left HOME HEALTH RN History: Reports: None Musculoskeletal History: Reports: Back Pain, Chronic, Osteoarthritis Other Musculoskeletal History: spinal stenosis, shoulder apin, myofasical pain, knee pain, laminectomy, stimulator implanted Neurological History: Reports: Other (See Below) Other Neuro History: benign essential tremor, spinal stenosis, colloid cyst of brain, lumbar facet arthropathy, lumbar degenerative disc disease, spinal cord stimulator, laminectomy Psychiatric History: Reports: Other (See Below) Other Psychiatric History: insomnia Endocrine/Metabolic History: Reports: Hypothyroidism, Obesity/BMI 30+ Other Endocrine/Metabolic History: adrenal insufficiency Hematologic History: Reports: None Immunologic History: Reports: None Oncologic (Cancer) History: Reports: Thyroid, Other (See Below) Other Oncologic History: kidney cancer and thyroid cancer - Infectious Disease History Infectious Disease History: Reports: Chicken Pox, Influenza, Measles, Mumps, Pertussis (Whooping Cough) - Past Surgical History Head Surgeries/Procedures: Reports: None HEENT Surgical History: Reports: Eye Surgery, Tonsillectomy Other HEENT Surgeries/Procedures: "food gettins stuck in throat" Cardiovascular Surgical History: Reports: Coronary Artery Stent Respiratory Surgical History: Reports: None GI Surgical History: Reports: Appendectomy, Colonoscopy, EGD Male Surgical History: Reports: Nephrectomy, Vasectomy Endocrine Surgical History: Reports: Thyroidectomy Neurological Surgical History: Reports: Laminectomy, Lumbar Spine, Other (See Below) Musculoskeletal Surgical History: Reports: None Oncologic Surgical History: Reports: Other (See Below) Other Oncologic Surgeries/Procedures: thyroidectomy Dermatological Surgical History: Reports: Other (See Below) Social & Family History - Family History Family Medical History: No Pertinent Family History (Denies genetic diseases in family) - Caffeine Use Caffeine Use: Reports: Coffee, Soda Other Caffeine Use: a couple cups coffee a day and sometimes a pop - Living Situation & Occupation Living situation: Reports: , with Spouse, Extended Care Facility Occupation: Retired H&P Review of Systems - Review of Systems: Review Of Systems: See Below General: Reports: Fever, Malaise, Weakness HEENT: Reports: No Symptoms Pulmonary: Reports: Shortness of Breath, Wheezing, Cough Cardiovascular: Reports: No Symptoms Gastrointestinal: Reports: No Symptoms Genitourinary: Reports: No Symptoms Musculoskeletal: Reports: No Symptoms Skin: Reports: No Symptoms Psychiatric: Reports: No Symptoms Neurological: Reports: No Symptoms Hematologic/Lymphatic: Reports: No Symptoms Immunologic: Reports: No Symptoms Exam - Exam Exam: See Below - Vital Signs Vital Signs: Last Vital Signs Temp 36.5 C 01/29/21 13:33 Pulse 50 L 01/29/21 13:33 Resp 17 01/29/21 13:33 BP 142/66 H 01/29/21 13:33 Pulse Ox 89 L 01/29/21 16:26 Weight: 126.099 kg - Exam Physical Exam Comments:: General Appearance: Alert, NAD Ears: Normal External Exam, Hearing Grossly Normal Nose: Normal Inspection Throat/Mouth: Normal Inspection, Normal Lips, Normal Voice, No Airway Compromise Head: Atraumatic Neck: Normal Inspection, Supple Respiratory/Chest: Chest Non-Tender, Respiratory Distress (Mild), Decreased Breath Sounds, Fine crackles noted to the bilateral bases, Fine expiratory wheeze noted bilaterally Cardiovascular: Normal Peripheral Pulses, Regular Rate, Rhythm, No Murmur. 1+ edema noted to the bilateral lower extremities Peripheral Pulses: 2+: Radial (L), Radial (R), Dorsalis Pedis (L), Dorsalis Pedis (R) GI/Abdominal: Normal Bowel Sounds, Soft, Non-Tender, No Distention (Male) Exam: Deferred Rectal (Males) Exam: Deferred Back Exam: Normal Inspection Extremities: Pedal Edema (1+ to bilateral lower extremities), Other (Open scabbed dried laceration noted to the dorsal left active left great toe). Tenderness noted to left medial tibial area Neurological: Alert, Oriented, Normal Cognition Psychiatric: Normal Affect, Normal Mood Skin Exam: Warm, Dry, Normal Color, No Rash, Wound/Incision (Old scabbed dry laceration noted to the dorsal aspect of left great toe) Lymphatic: No Adenopathy - Patient Data Lab Results Last 24 hrs: Laboratory Results - last 24 hr 01/29/21 01/29/21 01/29/21 Range/Units 13:55 13:55 14:25 WBC 5.21 (4.23-9.07) K/mm3 RBC 4.20 L (4.63-6.08) M/mm3 Hgb 12.9 L (13.7-17.5) gm/dl Hct 39.9 L (40.1-51.0) % MCV 95.0 H D (79.0-92.2) fl MCH 30.7 (25.7-32.2) pg MCHC 32.3 (32.2-35.5) g/dl RDW Std Deviation 49.2 H (35.1-43.9) fL Plt Count 101 L (163-337) K/mm3 MPV 11.5 (9.4-12.3) fl Neut % (Auto) 71.2 H (34.0-67.9) % Lymph % (Auto) 15.9 L (21.8-53.1) % Eagle % (Auto) 11.9 (5.3-12.2) % Eos % (Auto) 0.6 L (0.8-7.0) Baso % (Auto) 0.4 (0.1-1.2) % Neut # (Auto) 3.71 (1.78-5.38) K/mm3 Lymph # (Auto) 0.83 L (1.32-3.57) K/mm3 Eagle # (Auto) 0.62 (0.30-0.82) K/mm3 Eos # (Auto) 0.03 L (0.04-0.54) K/mm3 Baso # (Auto) 0.02 (0.01-0.08) K/mm3 D-Dimer, Quantitative (0.19-0.50) mg/L Sodium (136-145) mEq/L Potassium (3.5-5.1) mEq/L Chloride (98-107) mEq/L Carbon Dioxide (21-32) mEq/L Anion Gap (5-15) BUN (7-18) mg/dL Creatinine (0.7-1.3) mg/dL Est Cr Clr Drug Dosing mL/min Estimated GFR (MDRD) (>60) mL/min BUN/Creatinine Ratio (14-18) Glucose (70-99) mg/dL Lactic Acid (0.4-2.0) mmol/L Calcium (8.5-10.1) mg/dL Magnesium (1.8-2.4) mg/dL Total Bilirubin (0.2-1.0) mg/dL AST (15-37) U/L ALT (16-63) U/L Alkaline Phosphatase (46-116) U/L Troponin I (0.00-0.056) ng/mL C-Reactive Protein (<1.0) mg/dL NT-Pro-B Natriuret Pep (0-125) pg/mL Total Protein (6.4-8.2) g/dl Albumin (3.4-5.0) g/dl Globulin gm/dL Albumin/Globulin Ratio (1-2) Influenza Type A RNA Negative (NEGATIVE) RSV RNA (INAAT) Positive H (NEGATIVE) Influenza Type B RNA Negative (NEGATIVE) SARS-CoV-2 RNA (JESSICA) Negative (NEGATIVE) 01/29/21 01/29/21 01/29/21 Range/Units 14:25 14:25 14:25 WBC (4.23-9.07) K/mm3 RBC (4.63-6.08) M/mm3 Hgb (13.7-17.5) gm/dl Hct (40.1-51.0) % MCV (79.0-92.2) fl MCH (25.7-32.2) pg MCHC (32.2-35.5) g/dl RDW Std Deviation (35.1-43.9) fL Plt Count (163-337) K/mm3 MPV (9.4-12.3) fl Neut % (Auto) (34.0-67.9) % Lymph % (Auto) (21.8-53.1) % Eagle % (Auto) (5.3-12.2) % Eos % (Auto) (0.8-7.0) Baso % (Auto) (0.1-1.2) % Neut # (Auto) (1.78-5.38) K/mm3 Lymph # (Auto) (1.32-3.57) K/mm3 Eagle # (Auto) (0.30-0.82) K/mm3 Eos # (Auto) (0.04-0.54) K/mm3 Baso # (Auto) (0.01-0.08) K/mm3 D-Dimer, Quantitative 0.98 H (0.19-0.50) mg/L Sodium 134 L (136-145) mEq/L Potassium 4.6 (3.5-5.1) mEq/L Chloride 102 (98-107) mEq/L Carbon Dioxide 24 (21-32) mEq/L Anion Gap 12.6 (5-15) BUN 13 (7-18) mg/dL Creatinine 1.3 (0.7-1.3) mg/dL Est Cr Clr Drug Dosing 62.29 mL/min Estimated GFR (MDRD) 54 (>60) mL/min BUN/Creatinine Ratio 10.0 L (14-18) Glucose 99 (70-99) mg/dL Lactic Acid (0.4-2.0) mmol/L Calcium 9.7 (8.5-10.1) mg/dL Magnesium 2.0 (1.8-2.4) mg/dL Total Bilirubin 0.3 (0.2-1.0) mg/dL AST 12 L (15-37) U/L ALT 10 L (16-63) U/L Alkaline Phosphatase 90 (46-116) U/L Troponin I < 0.017 (0.00-0.056) ng/mL C-Reactive Protein 2.4 H* (<1.0) mg/dL NT-Pro-B Natriuret Pep 1924 H (0-125) pg/mL Total Protein 6.9 (6.4-8.2) g/dl Albumin 3.2 L (3.4-5.0) g/dl Globulin 3.7 gm/dL Albumin/Globulin Ratio 0.9 L (1-2) Influenza Type A RNA (NEGATIVE) RSV RNA (INAAT) (NEGATIVE) Influenza Type B RNA (NEGATIVE) SARS-CoV-2 RNA (JESSICA) (NEGATIVE) 01/29/21 Range/Units 14:25 WBC (4.23-9.07) K/mm3 RBC (4.63-6.08) M/mm3 Hgb (13.7-17.5) gm/dl Hct (40.1-51.0) % MCV (79.0-92.2) fl MCH (25.7-32.2) pg MCHC (32.2-35.5) g/dl RDW Std Deviation (35.1-43.9) fL Plt Count (163-337) K/mm3 MPV (9.4-12.3) fl Neut % (Auto) (34.0-67.9) % Lymph % (Auto) (21.8-53.1) % Eagle % (Auto) (5.3-12.2) % Eos % (Auto) (0.8-7.0) Baso % (Auto) (0.1-1.2) % Neut # (Auto) (1.78-5.38) K/mm3 Lymph # (Auto) (1.32-3.57) K/mm3 Eagle # (Auto) (0.30-0.82) K/mm3 Eos # (Auto) (0.04-0.54) K/mm3 Baso # (Auto) (0.01-0.08) K/mm3 D-Dimer, Quantitative (0.19-0.50) mg/L Sodium (136-145) mEq/L Potassium (3.5-5.1) mEq/L Chloride (98-107) mEq/L Carbon Dioxide (21-32) mEq/L Anion Gap (5-15) BUN (7-18) mg/dL Creatinine (0.7-1.3) mg/dL Est Cr Clr Drug Dosing mL/min Estimated GFR (MDRD) (>60) mL/min BUN/Creatinine Ratio (14-18) Glucose (70-99) mg/dL Lactic Acid 1.0 (0.4-2.0) mmol/L Calcium (8.5-10.1) mg/dL Magnesium (1.8-2.4) mg/dL Total Bilirubin (0.2-1.0) mg/dL AST (15-37) U/L ALT (16-63) U/L Alkaline Phosphatase (46-116) U/L Troponin I (0.00-0.056) ng/mL C-Reactive Protein (<1.0) mg/dL NT-Pro-B Natriuret Pep (0-125) pg/mL Total Protein (6.4-8.2) g/dl Albumin (3.4-5.0) g/dl Globulin gm/dL Albumin/Globulin Ratio (1-2) Influenza Type A RNA (NEGATIVE) RSV RNA (INAAT) (NEGATIVE) Influenza Type B RNA (NEGATIVE) SARS-CoV-2 RNA (JESSICA) (NEGATIVE) Result Diagrams: 01/29/21 14:25 01/29/21 14:25 Sepsis Event Note - Focused Exam Vital Signs: Vital Signs Temp Pulse Resp BP Pulse Ox Pulse Ox 01/29/21 16:26 89 L 01/29/21 13:33 36.5 C 50 L 17 142/66 H 94 L Problem List Initiated/Reviewed/Updated: Yes Orders Last 24hrs: Active Orders 24 hr Category Date Time Status Patient Status [ADT] Routine ADT 01/29/21 16:55 Ordered Bedrest Bedside Commode [RC] ASDIRECTED Care 01/29/21 16:55 Ordered Cardiac Monitoring [RC] CONTINUOUS Care 01/29/21 16:55 Ordered Intake and Output [RC] QSHIFT Care 01/29/21 16:55 Ordered Oxygen Therapy [RC] PRN Care 01/29/21 16:55 Ordered Pulse Oximetry [RC] CONTINUOUS Care 01/29/21 16:55 Ordered RT Aerosol Therapy [RC] ASDIRECTED Care 01/29/21 16:01 Active RT Aerosol Therapy [RC] ASDIRECTED Care 01/29/21 16:55 Ordered RT Aerosol Therapy [RC] ASDIRECTED Care 01/29/21 16:55 Ordered VTE/DVT Education [RC] PER UNIT ROUTINE Care 01/29/21 16:55 Ordered Vital Signs [RC] Q4H Care 01/29/21 16:55 Ordered Consult to Speech Language Pathology [LEATHER COATER Evaluation Cons 01/29/21 16:59 Ordered and Treatment] [CONS] Routine OT Evaluation and Treatment [CONS] Routine Cons 01/29/21 16:55 Ordered PT Evaluation and Treatment [CONS] Routine Cons 01/29/21 16:55 Ordered BLOOD CULTURE [MREF] Stat Lab 01/29/21 14:25 Received BLOOD CULTURE [MREF] Stat Lab 01/29/21 14:31 Received BLOOD CULTURE [MREF] Stat Lab 01/29/21 16:55 Ordered BLOOD CULTURE [MREF] Stat Lab 01/29/21 16:55 Ordered CBC WITH AUTO DIFF [HEME] DAILY Lab 01/30/21 05:00 Ordered CBC WITH AUTO DIFF [HEME] DAILY Lab 01/31/21 05:00 Ordered CBC WITH AUTO DIFF [HEME] DAILY Lab 02/01/21 05:00 Ordered CBC WITH AUTO DIFF [HEME] DAILY Lab 02/02/21 05:00 Ordered COMPREHENSIVE METABOLIC PN,CMP [CHEM] DAILY Lab 01/30/21 05:00 Ordered COMPREHENSIVE METABOLIC PN,CMP [CHEM] DAILY Lab 01/31/21 05:00 Ordered COMPREHENSIVE METABOLIC PN,CMP [CHEM] DAILY Lab 02/01/21 05:00 Ordered COMPREHENSIVE METABOLIC PN,CMP [CHEM] DAILY Lab 02/02/21 05:00 Ordered MAGNESIUM [CHEM] Routine Lab 01/29/21 16:55 Ordered PHOSPHORUS [CHEM] Routine Lab 01/29/21 16:55 Ordered RESPIRATORY CULT [MREF] Stat Lab 01/29/21 16:55 Ordered TROPONIN I [CHEM] Routine Lab 01/29/21 16:55 Ordered UA RFX JARAD AND CULT IF INDIC [URIN] Stat Lab 01/29/21 13:56 Ordered Acetaminophen [TylenoL] Med 01/29/21 16:55 Ordered 650 mg PO Q6H PRN Albuterol/Ipratropium [DuoNeb 3.0-0.5 MG/3 ML] Med 01/29/21 16:55 Ordered 3 ml NEB Q4H PRN Apixaban [Eliquis] Med 01/29/21 17:15 Ordered 5 mg PO BID Aspirin [Halfprin] Med 01/30/21 09:00 Ordered 81 mg PO DAILY Budesonide/Formoterol Med 01/29/21 17:15 Ordered 2 puff INH BID Cholecalciferol (Vitamin D3) [Vitamin D3] Med 01/30/21 09:00 Ordered 2,000 unit PO DAILY Docusate Sodium [Colace] Med 01/29/21 16:55 Ordered 100 mg PO BID PRN Docusate Sodium/Sennosides [Senna Plus] Med 01/29/21 17:00 Ordered 2 tab PO BID PRN Doxazosin [Cardura] Med 01/29/21 21:00 Ordered 4 mg PO BEDTIME Enoxaparin [Lovenox] Med 01/30/21 09:00 Ordered 40 mg SUBCUT DAILY Escitalopram Med 01/29/21 17:15 Ordered 20 mg PO DAILY Finasteride [Proscar] Med 01/29/21 17:15 Ordered 5 mg PO DAILY Furosemide [Lasix] Med 01/30/21 09:00 Ordered 40 mg IVPUSH BID Isosorbide Mononitrate [Imdur] Med 01/29/21 21:00 Ordered 60 mg PO BEDTIME Levothyroxine Med 01/30/21 09:00 Ordered 200 mcg PO DAILY Levothyroxine Med 01/30/21 09:00 Ordered 25 mcg PO DAILY Morphine Med 01/29/21 16:55 Ordered 2 mg IVPUSH Q4H PRN Naloxone HCl [Narcan] Med 01/29/21 17:00 Ordered 4 mg NS ASDIRECTED PRN Nebivolol [Bystolic] Med 01/29/21 21:00 Ordered 2.5 mg PO BEDTIME Omeprazole Med 01/29/21 17:00 Ordered 20 mg PO BIDMEALS Potassium Chloride Med 01/29/21 21:00 Ordered 20 meq PO BID Pregabalin Med 01/29/21 21:00 Ordered 150 mg PO TID Promethazine [Phenergan] 12.5 mg Med 01/29/21 16:55 Ordered Sodium Chloride 0.9% [Normal Saline] 50 ml IV Q6H Sodium Chloride 0.9% [Normal Saline] 100 ml Med 01/29/21 16:00 Active IV ASDIRECTED Sodium Chloride 0.9% [Saline Flush] Med 01/29/21 13:55 Active 10 ml FLUSH ASDIRECTED PRN Sodium Chloride 0.9% [Saline Flush] Med 01/29/21 15:29 Active 10 ml FLUSH ONETIME PRN Suvorexant [Belsomra] Med 01/29/21 17:00 Ordered 20 mg PO BEDTIME PRN Tamsulosin [Flomax] Med 01/29/21 21:00 Ordered 0.4 mg PO BEDTIME allopurinoL [Zyloprim] Med 01/30/21 09:00 Ordered 100 mg PO DAILY amLODIPine [Norvasc] Med 01/29/21 21:00 Ordered 10 mg PO BEDTIME atorvaSTATin [Lipitor] Med 01/30/21 09:00 Ordered 20 mg PO DAILY busPIRone HCl [Buspirone HCl] Med 01/29/21 21:00 Ordered 7.5 mg PO BID oxyCODONE Med 01/29/21 16:55 Ordered 5 mg PO Q6H PRN polyethylene glycoL 3350 [MiraLAX] Med 01/29/21 17:00 Ordered 1 dose PO Q72H Blood Culture x2 Reflex Set [OM.PC] Stat Oth 01/29/21 13:56 Ordered Isolation [COMM] Routine Oth 01/29/21 15:07 Ordered Saline Lock Insert [OM.PC] Stat Oth 01/29/21 13:55 Ordered Resuscitation Status Routine Resus Stat 01/29/21 16:55 Ordered EKG 12 Lead [EK] Stat Ther 01/29/21 13:44 Ordered Medication Orders Acetaminophen (Acetaminophen 325 Mg Tab) 650 mg PO Q6H PRN PRN Reason: Pain (Mild 1-3)/fever Albuterol/Ipratropium (Albuterol/Ipratropium 3.0-0.5 Mg/3 Ml Neb Soln) 3 ml NEB Q4H PRN PRN Reason: Shortness Of Breath/wheezing Allopurinol (Allopurinol 100 Mg Tab) 100 mg PO DAILY [facility] Amlodipine Besylate (Amlodipine 10 Mg Tab) 10 mg PO BEDTIME [facility] Apixaban (Apixaban 5 Mg Tab) 5 mg PO BID [facility] Aspirin (Aspirin 81 Mg Tab.Ec) 81 mg PO DAILY [facility] Atorvastatin Calcium (Atorvastatin 20 Mg Tab) 20 mg PO DAILY [facility] Docusate Sodium (Docusate Sodium 100 Mg Cap) 100 mg PO BID PRN PRN Reason: Constipation Doxazosin Mesylate (Doxazosin 4 Mg Tab) 4 mg PO BEDTIME [facility] Enoxaparin Sodium (Enoxaparin 40 Mg/0.4 Ml Syringe) 40 mg SUBCUT DAILY [facility] Finasteride (Finasteride 5 Mg Tab) 5 mg PO DAILY [facility] Furosemide (Furosemide 40 Mg/4 Ml Vial) 40 mg IVPUSH BID [facility] Sodium Chloride (Normal Saline) 100 mls @ 60 mls/hr IV ASDIRECTED BLAYNE Last Admin: 01/29/21 15:50 Dose: 60 mls/hr Documented by: MISSY Promethazine HCl 12.5 mg/ (Sodium Chloride) 50.5 mls @ 100 mls/hr IV Q6H PRN PRN Reason: Nausea/Vomiting Isosorbide Mononitrate (Isosorbide Mononitrate 60 Mg Tab.Er) 60 mg PO BEDTIME [facility] Levothyroxine Sodium (Levothyroxine 200 Mcg Tab) 200 mcg PO DAILY [facility] Levothyroxine Sodium (Levothyroxine 25 Mcg Tab) 25 mcg PO DAILY [facility] Morphine Sulfate (Morphine 2 Mg/Ml Syringe) 2 mg IVPUSH Q4H PRN PRN Reason: Pain (severe 7-10) Stop: 01/30/21 16:55 Non-Formulary Medication (Budesonide/Formoterol) 2 puff INH BID [facility] Non-Formulary Medication (Buspirone Hcl [Buspirone Hcl]) 7.5 mg PO BID [facility] Non-Formulary Medication (Cholecalciferol (Vitamin D3) [Vitamin D3]) 2,000 unit PO DAILY [facility] Non-Formulary Medication (Escitalopram) 20 mg PO DAILY [facility] Non-Formulary Medication (Naloxone Hcl [Narcan]) 4 mg NS ASDIRECTED PRN PRN Reason: Opioid Overdose Non-Formulary Medication (Nebivolol [Bystolic]) 2.5 mg PO BEDTIME [facility] Non-Formulary Medication (Omeprazole) 20 mg PO BIDMEALS [facility] Non-Formulary Medication (Potassium Chloride) 20 meq PO BID [facility] Non-Formulary Medication (Pregabalin) 150 mg PO TID [facility] Non-Formulary Medication (Suvorexant [Belsomra]) 20 mg PO BEDTIME PRN PRN Reason: Insomnia Oxycodone HCl (Oxycodone 5 Mg Tab) 5 mg PO Q6H PRN PRN Reason: Pain (moderate 4-6) Polyethylene Glycol (Polyethylene Glycol 3350 Powder 17 Gm Packet) gm PO Q72H [facility] Senna/Docusate Sodium (Docusate Sodium/Sennosides 50-8.6 Mg Tab) 2 tab PO BID PRN PRN Reason: Constipation Sodium Chloride (Sodium Chloride 0.9% 10 Ml Syringe) 10 ml FLUSH ASDIRECTED PRN PRN Reason: Keep Vein Open Last Admin: 01/29/21 14:45 Dose: 10 ml Documented by: KELSIE Sodium Chloride (Sodium Chloride 0.9% 10 Ml Syringe) 10 ml FLUSH ONETIME PRN PRN Reason: Keep Vein Open Last Admin: 01/29/21 15:47 Dose: 10 ml Documented by: MISSY Tamsulosin HCl (Tamsulosin 0.4 Mg Cap.Er) 0.4 mg PO BEDTIME [facility] Assessment/Plan Comment:: Patient is a 70-year-old male with a history of hypertension, COPD, CHF, atrial fibrillation, and chronic back pain who presented to the ER due to worsening shortness of breath. Assessment and plan: Acute hypoxic respiratory failure Etiology could be due to RSV infection, CHF exacerbation and COPD In the ER, he had a SpO2 89% with 6L CTA chest - NO PE; small parenchymal densities within both lower lungs as well as left upper lung Pulse ox Oxygen therapy CHF, unknown type BNP 1924 CXR - cardiomegaly with mild pulmonary vascular congestion. Troponin < 0.017, repeat a troponin EKG no ST elevation Echocardiogram lasix 80mg po bid is on hold will start lasix 40mg iv bid tomorrow, considering he received contrast for CTA this afternoon. Intake and output Check electrolytes Pneumonia? had a fever this morning in pcp offer, 100.0. CXR - more focal density within the right lung base which could represent focal congestion although difficult to exclude small area of superimposed pneumnonia WBC 5.21 Procalcitonin influenza A and B negative RSV positive Covid 19 negative. He has been fully vaccinated against covid 19 His fever could result from RSV infection No antibiotics at the moment Droplet isolation COPD Stable Continue inhalers Atrial fib Heart rate is controlled nebivolol 2.5mg daily Continue Eliquis 5mg bid chronic back pain Pain management open laceration to the dorsum of his left toe Wound culture Wound care HTN Continue amlodipine 10mg daily, imdur 60mg daily, nebivolol 2/5mg daily Hydralazine as needed Thrombocytopenia, 101 in the ER No evidence of bleeding Repeat CBC in morning Elevation of D-dimer, 0.98 CTA chest - no PE. Patient has been normal Eliquis. I would not like to more work-up Continue Eliquis Hx of dysphagia Speech pathology consult Pulmonary nodule Repeat CT chest in 6 months DVT prophylaxis: Eliquis CODE STATUS: Full Prognosis: Good - Mortality Measure Prognosis:: Good
[2021-01-29] MEDS ORDERED: FORMOTEROL AD INH SCH (17:15)
[2021-01-29] MEDS ORDERED: Non-Formulary Medication 1 Each (Escitalopram 20 MG Tablet) PO SCH (17:15)
[2021-01-29] MEDS ORDERED: BUDESONIDE INH SCH (17:15)
[2021-01-29] MEDS ORDERED: hydrALAZINE 20 MG/ML SDV IVPUSH PRN (17:25)
[2021-01-29] MEDS ORDERED: Azithromycin 500 MG in Sodium Chloride 0.9% 250 ML IV SCH (17:30)
[2021-01-29] MEDS ORDERED: NEBIVOLOL 2.5 MG PO SCH (21:00)
[2021-01-29] MEDS ORDERED: Doxazosin 4 MG Tab PO SCH (21:00)
[2021-01-29] MEDS: Albuterol/Ipratropium 3.0-0.5 MG/3 ML Neb Soln NEB PRN (21:17)
[2021-01-29] MEDS ORDERED: Carvedilol 3.125 MG Tab PO SCH (21:45)
[2021-01-29] MEDS ORDERED: Sodium Chloride 0.9% 500 ML IV ONE (22:42)
[2021-01-29] MEDS ORDERED: Sodium Chloride 0.9% 1,000 ML ONE (22:47)
[2021-01-29] MEDS: Formoterol/Mometasone 200-5 MCG 8.8 GM Inhaler IH SCH (22:53)
[2021-01-29] MEDS: busPIRone 5 MG Tab PO SCH (22:55)
[2021-01-29] MEDS: Doxazosin 2 MG Tab PO SCH (22:55)
[2021-01-29] MEDS: Pregabalin 75 MG Cap PO SCH (22:57)
[2021-01-29] MEDS: Citalopram 20 MG Tab PO SCH (22:57)
[2021-01-29] MEDS: Pantoprazole 40 MG Tab.CR PO SCH (22:57)
[2021-01-29] MEDS: Tamsulosin 0.4 MG Cap.ER PO SCH (22:57)
[2021-01-29] MEDS: Isosorbide Mononitrate 60 MG Tab.ER PO SCH (22:57)
[2021-01-29] MEDS: amLODIPine 10 MG Tab PO SCH (22:58)
[2021-01-29] MEDS: Apixaban 5 MG Tab PO SCH (22:58)
[2021-01-29] MEDS: oxyCODONE 5 MG Tab PO PRN (23:04)
[2021-01-30] MEDS: guaiFENesin/Dextromethorphan 100-10 MG/5 ML Soln 5 ML Cup PO PRN (00:14)
[2021-01-30] MEDS: Albuterol/Ipratropium 3.0-0.5 MG/3 ML Neb Soln NEB PRN (02:43)
[2021-01-30] MEDS: Acetaminophen 325 MG Tab PO PRN ×2 (02:50→22:53)
[2021-01-30] MEDS: Pantoprazole 40 MG Tab.CR PO SCH ×2 (07:13→16:08)
[2021-01-30] MEDS: Formoterol/Mometasone 200-5 MCG 8.8 GM Inhaler IH SCH ×2 (07:24→20:11)
[2021-01-30] MEDS ORDERED: Levothyroxine 25 MCG Tab PO SCH (09:00)
[2021-01-30] MEDS ORDERED: Allopurinol 100 MG Tab PO SCH (09:00)
[2021-01-30] MEDS ORDERED: Enoxaparin 40 MG/0.4 ML Syringe SUBCUT SCH (09:00)
[2021-01-30] MEDS ORDERED: atorvaSTATin 20 MG Tab PO SCH (09:00)
[2021-01-30] MEDS ORDERED: Potassium Chloride 20 MEQ Tab.ER PO ONE (09:00)
[2021-01-30] MEDS ORDERED: cefTRIAXone 2 GM in Sodium Chloride 0.9% 100 ML IV SCH (09:00)
[2021-01-30] MEDS ORDERED: Aspirin 81 MG Tab.EC PO SCH (09:00)
[2021-01-30] MEDS ORDERED: Furosemide 40 MG/4 ML VIAL IVPUSH SCH (09:00)
[2021-01-30] MEDS ORDERED: Finasteride 5 MG Tab PO SCH (09:00)
[2021-01-30] MEDS ORDERED: Cholecalciferol (Vitamin D3) 25 MCG Tab PO SCH (09:00)
[2021-01-30] MEDS ORDERED: Potassium Chloride 20 MEQ Tab.ER PO SCH (09:00)
[2021-01-30] MEDS ORDERED: Phosphorus #1 250 MG Tab PO SCH (09:00)
[2021-01-30] MEDS: oxyCODONE 5 MG Tab PO PRN ×2 (10:14→16:08)
[2021-01-30] MEDS ORDERED: Non-Formulary Medication 1 Each (Fluticasone Propion/Salmeterol 1 EACH Blst.W.Dev) INH SCH (11:15)
[2021-01-30] MEDS: Apixaban 5 MG Tab PO SCH ×3 (12:06→20:45)
[2021-01-30] MEDS: busPIRone 5 MG Tab PO SCH ×3 (12:06→20:46)
[2021-01-30] MEDS: Pregabalin 75 MG Cap PO SCH ×4 (12:10→20:45)
[2021-01-30] MEDS: Cholecalciferol (Vitamin D3) 25 MCG Tab PO SCH (12:31)
[2021-01-30] MEDS: Aspirin 81 MG Tab.EC PO SCH (12:31)
[2021-01-30] MEDS: Phosphorus #1 250 MG Tab PO SCH ×3 (12:32→20:47)
[2021-01-30] MEDS: Finasteride 5 MG Tab PO SCH (12:32)
[2021-01-30] MEDS: Allopurinol 100 MG Tab PO SCH (12:32)
[2021-01-30] MEDS: Potassium Chloride 20 MEQ Tab.ER PO SCH (12:33)
[2021-01-30] MEDS: guaiFENesin 600 MG Tab.ER PO PRN (12:33)
[2021-01-30] MEDS: Furosemide 40 MG/4 ML VIAL IVPUSH SCH ×2 (12:34→20:47)
[2021-01-30] MEDS: atorvaSTATin 20 MG Tab PO SCH (12:34)
--- NOTE | 2021-01-30 12:51 | PCM.PN ---
- General Info Date of Service: 01/30/21 Admission Dx/Problem (Free Text): Admission Diagnosis/Problem Admission Diagnosis/Problem Respiratory failure with hypoxia and hypercapnia Subjective Update: Patient is a 70-year-old male with a history of hypertension, COPD, CHF, atrial fibrillation, and chronic back pain who presented to the ER due to worsening shortness of breath. Pt still has sob with cough. Denies fever, chills, headache or dizziness. he is asking to increase pain medication for his back pain and sleeping pill for insomnia. Home medications include trazodone 50 mg at bedtime and oxycodone/acetaminophen 10-325 mg every 4 hours as needed. I will change it to oxycodone 10 mg oral 3 times daily, trazodone 50 mg at bedtime and Ambien 2.5 mg at bedtime. He is now on 50L with FiO2 80%. She had a mild fever in the earlier this morning - Review of Systems Systems Review Comment:: General: Reports: Fever, Malaise, Weakness HEENT: Reports: No Symptoms Pulmonary: Reports: Shortness of Breath, Wheezing, Cough Cardiovascular: Reports: No Symptoms Gastrointestinal: Reports: No Symptoms Genitourinary: Reports: No Symptoms Musculoskeletal: Reports: No Symptoms Skin: Reports: No Symptoms Psychiatric: Reports: No Symptoms Neurological: Reports: No Symptoms Hematologic/Lymphatic: Reports: No Symptoms Immunologic: Reports: No Symptoms - Patient Data Vitals - Most Recent: Last Vital Signs Temp 37.6 C 01/30/21 07:45 Pulse 53 L 01/30/21 07:45 Resp 20 01/30/21 07:45 BP 137/74 01/30/21 07:45 Pulse Ox 95 01/30/21 10:02 Weight - Most Recent: 120.565 kg I&O - Last 24 Hours: Intake & Output 01/29/21 01/30/21 01/30/21 22:59 06:59 14:59 Intake Total 300 300 Output Total 450 700 Balance -150 -400 Lab Results Last 24 Hours: Laboratory Results - last 24 hr 01/29/21 01/29/21 01/29/21 Range/Units 13:55 13:55 14:25 WBC 5.21 (4.23-9.07) K/mm3 RBC 4.20 L (4.63-6.08) M/mm3 Hgb 12.9 L (13.7-17.5) gm/dl Hct 39.9 L (40.1-51.0) % MCV 95.0 H D (79.0-92.2) fl MCH 30.7 (25.7-32.2) pg MCHC 32.3 (32.2-35.5) g/dl RDW Std Deviation 49.2 H (35.1-43.9) fL Plt Count 101 L (163-337) K/mm3 MPV 11.5 (9.4-12.3) fl Neut % (Auto) 71.2 H (34.0-67.9) % Lymph % (Auto) 15.9 L (21.8-53.1) % Logan % (Auto) 11.9 (5.3-12.2) % Eos % (Auto) 0.6 L (0.8-7.0) Baso % (Auto) 0.4 (0.1-1.2) % Neut # (Auto) 3.71 (1.78-5.38) K/mm3 Lymph # (Auto) 0.83 L (1.32-3.57) K/mm3 Logan # (Auto) 0.62 (0.30-0.82) K/mm3 Eos # (Auto) 0.03 L (0.04-0.54) K/mm3 Baso # (Auto) 0.02 (0.01-0.08) K/mm3 Manual Slide Review D-Dimer, Quantitative (0.19-0.50) mg/L Sodium (136-145) mEq/L Potassium (3.5-5.1) mEq/L Chloride (98-107) mEq/L Carbon Dioxide (21-32) mEq/L Anion Gap (5-15) BUN (7-18) mg/dL Creatinine (0.7-1.3) mg/dL Est Cr Clr Drug Dosing mL/min Estimated GFR (MDRD) (>60) mL/min BUN/Creatinine Ratio (14-18) Glucose (70-99) mg/dL Lactic Acid (0.4-2.0) mmol/L Calcium (8.5-10.1) mg/dL Phosphorus (2.6-4.7) mg/dL Magnesium (1.8-2.4) mg/dL Total Bilirubin (0.2-1.0) mg/dL AST (15-37) U/L ALT (16-63) U/L Alkaline Phosphatase (46-116) U/L Troponin I (0.00-0.056) ng/mL C-Reactive Protein (<1.0) mg/dL NT-Pro-B Natriuret Pep (0-125) pg/mL Total Protein (6.4-8.2) g/dl Albumin (3.4-5.0) g/dl Globulin gm/dL Albumin/Globulin Ratio (1-2) Procalcitonin ng/mL Urine Color (Yellow) Urine Appearance (Clear) Urine pH (5.0-8.0) Ur Specific [place] (1.005-1.030) Urine Protein (Negative) Urine Glucose (UA) (Negative) Urine Ketones (Negative) Urine Occult Blood (Negative) Urine Nitrite (Negative) Urine Bilirubin (Negative) Urine Urobilinogen (0.2-1.0) Ur Leukocyte Esterase (Negative) Urine RBC (0-5) /hpf Urine WBC (0-5) /hpf Ur Epithelial Cells (0-5) /hpf Urine Bacteria (FEW) /hpf Urine Mucus (FEW) /hpf Influenza Type A RNA Negative (NEGATIVE) RSV RNA (INAAT) Positive H (NEGATIVE) Influenza Type B RNA Negative (NEGATIVE) SARS-CoV-2 RNA (JESSICA) Negative (NEGATIVE) 01/29/21 01/29/21 01/29/21 Range/Units 14:25 14:25 14:25 WBC (4.23-9.07) K/mm3 RBC (4.63-6.08) M/mm3 Hgb (13.7-17.5) gm/dl Hct (40.1-51.0) % MCV (79.0-92.2) fl MCH (25.7-32.2) pg MCHC (32.2-35.5) g/dl RDW Std Deviation (35.1-43.9) fL Plt Count (163-337) K/mm3 MPV (9.4-12.3) fl Neut % (Auto) (34.0-67.9) % Lymph % (Auto) (21.8-53.1) % Logan % (Auto) (5.3-12.2) % Eos % (Auto) (0.8-7.0) Baso % (Auto) (0.1-1.2) % Neut # (Auto) (1.78-5.38) K/mm3 Lymph # (Auto) (1.32-3.57) K/mm3 Logan # (Auto) (0.30-0.82) K/mm3 Eos # (Auto) (0.04-0.54) K/mm3 Baso # (Auto) (0.01-0.08) K/mm3 Manual Slide Review D-Dimer, Quantitative 0.98 H (0.19-0.50) mg/L Sodium 134 L (136-145) mEq/L Potassium 4.6 (3.5-5.1) mEq/L Chloride 102 (98-107) mEq/L Carbon Dioxide 24 (21-32) mEq/L Anion Gap 12.6 (5-15) BUN 13 (7-18) mg/dL Creatinine 1.3 (0.7-1.3) mg/dL Est Cr Clr Drug Dosing 62.29 mL/min Estimated GFR (MDRD) 54 (>60) mL/min BUN/Creatinine Ratio 10.0 L (14-18) Glucose 99 (70-99) mg/dL Lactic Acid (0.4-2.0) mmol/L Calcium 9.7 (8.5-10.1) mg/dL Phosphorus (2.6-4.7) mg/dL Magnesium 2.0 (1.8-2.4) mg/dL Total Bilirubin 0.3 (0.2-1.0) mg/dL AST 12 L (15-37) U/L ALT 10 L (16-63) U/L Alkaline Phosphatase 90 (46-116) U/L Troponin I < 0.017 (0.00-0.056) ng/mL C-Reactive Protein 2.4 H* (<1.0) mg/dL NT-Pro-B Natriuret Pep 1924 H (0-125) pg/mL Total Protein 6.9 (6.4-8.2) g/dl Albumin 3.2 L (3.4-5.0) g/dl Globulin 3.7 gm/dL Albumin/Globulin Ratio 0.9 L (1-2) Procalcitonin ng/mL Urine Color (Yellow) Urine Appearance (Clear) Urine pH (5.0-8.0) Ur Specific [place] (1.005-1.030) Urine Protein (Negative) Urine Glucose (UA) (Negative) Urine Ketones (Negative) Urine Occult Blood (Negative) Urine Nitrite (Negative) Urine Bilirubin (Negative) Urine Urobilinogen (0.2-1.0) Ur Leukocyte Esterase (Negative) Urine RBC (0-5) /hpf Urine WBC (0-5) /hpf Ur Epithelial Cells (0-5) /hpf Urine Bacteria (FEW) /hpf Urine Mucus (FEW) /hpf Influenza Type A RNA (NEGATIVE) RSV RNA (INAAT) (NEGATIVE) Influenza Type B RNA (NEGATIVE) SARS-CoV-2 RNA (JESSICA) (NEGATIVE) 01/29/21 01/29/21 01/29/21 Range/Units 14:25 16:30 17:20 WBC (4.23-9.07) K/mm3 RBC (4.63-6.08) M/mm3 Hgb (13.7-17.5) gm/dl Hct (40.1-51.0) % MCV (79.0-92.2) fl MCH (25.7-32.2) pg MCHC (32.2-35.5) g/dl RDW Std Deviation (35.1-43.9) fL Plt Count (163-337) K/mm3 MPV (9.4-12.3) fl Neut % (Auto) (34.0-67.9) % Lymph % (Auto) (21.8-53.1) % Logan % (Auto) (5.3-12.2) % Eos % (Auto) (0.8-7.0) Baso % (Auto) (0.1-1.2) % Neut # (Auto) (1.78-5.38) K/mm3 Lymph # (Auto) (1.32-3.57) K/mm3 Logan # (Auto) (0.30-0.82) K/mm3 Eos # (Auto) (0.04-0.54) K/mm3 Baso # (Auto) (0.01-0.08) K/mm3 Manual Slide Review D-Dimer, Quantitative (0.19-0.50) mg/L Sodium (136-145) mEq/L Potassium (3.5-5.1) mEq/L Chloride (98-107) mEq/L Carbon Dioxide (21-32) mEq/L Anion Gap (5-15) BUN (7-18) mg/dL Creatinine (0.7-1.3) mg/dL Est Cr Clr Drug Dosing mL/min Estimated GFR (MDRD) (>60) mL/min BUN/Creatinine Ratio (14-18) Glucose (70-99) mg/dL Lactic Acid 1.0 (0.4-2.0) mmol/L Calcium (8.5-10.1) mg/dL Phosphorus 2.2 L (2.6-4.7) mg/dL Magnesium 2.0 (1.8-2.4) mg/dL Total Bilirubin (0.2-1.0) mg/dL AST (15-37) U/L ALT (16-63) U/L Alkaline Phosphatase (46-116) U/L Troponin I < 0.017 (0.00-0.056) ng/mL C-Reactive Protein (<1.0) mg/dL NT-Pro-B Natriuret Pep (0-125) pg/mL Total Protein (6.4-8.2) g/dl Albumin (3.4-5.0) g/dl Globulin gm/dL Albumin/Globulin Ratio (1-2) Procalcitonin ng/mL Urine Color Yellow (Yellow) Urine Appearance Clear (Clear) Urine pH 7.0 (5.0-8.0) Ur Specific [place] 1.015 (1.005-1.030) Urine Protein Trace H (Negative) Urine Glucose (UA) Negative (Negative) Urine Ketones Negative (Negative) Urine Occult Blood Negative (Negative) Urine Nitrite Negative (Negative) Urine Bilirubin Negative (Negative) Urine Urobilinogen 4.0 H (0.2-1.0) Ur Leukocyte Esterase Negative (Negative) Urine RBC 0-5 (0-5) /hpf Urine WBC 0-5 (0-5) /hpf Ur Epithelial Cells 0-5 (0-5) /hpf Urine Bacteria Not seen (FEW) /hpf Urine Mucus Not seen (FEW) /hpf Influenza Type A RNA (NEGATIVE) RSV RNA (INAAT) (NEGATIVE) Influenza Type B RNA (NEGATIVE) SARS-CoV-2 RNA (JESSICA) (NEGATIVE) 01/29/21 01/30/21 01/30/21 Range/Units 17:20 05:46 05:46 WBC 6.56 (4.23-9.07) K/mm3 RBC 3.82 L (4.63-6.08) M/mm3 Hgb 11.8 L (13.7-17.5) gm/dl Hct 36.4 L (40.1-51.0) % MCV 95.3 H (79.0-92.2) fl MCH 30.9 (25.7-32.2) pg MCHC 32.4 (32.2-35.5) g/dl RDW Std Deviation 48.4 H (35.1-43.9) fL Plt Count 89 L (163-337) K/mm3 MPV 11.5 (9.4-12.3) fl Neut % (Auto) 76.9 H (34.0-67.9) % Lymph % (Auto) 12.0 L (21.8-53.1) % Logan % (Auto) 10.4 (5.3-12.2) % Eos % (Auto) 0.2 L (0.8-7.0) Baso % (Auto) 0.3 (0.1-1.2) % Neut # (Auto) 5.05 (1.78-5.38) K/mm3 Lymph # (Auto) 0.79 L (1.32-3.57) K/mm3 Logan # (Auto) 0.68 (0.30-0.82) K/mm3 Eos # (Auto) 0.01 L (0.04-0.54) K/mm3 Baso # (Auto) 0.02 (0.01-0.08) K/mm3 Manual Slide Review Abnormal smear D-Dimer, Quantitative (0.19-0.50) mg/L Sodium 138 (136-145) mEq/L Potassium 4.4 (3.5-5.1) mEq/L Chloride 105 (98-107) mEq/L Carbon Dioxide 26 (21-32) mEq/L Anion Gap 11.4 (5-15) BUN 11 (7-18) mg/dL Creatinine 1.1 (0.7-1.3) mg/dL Est Cr Clr Drug Dosing 73.62 mL/min Estimated GFR (MDRD) > 60 (>60) mL/min BUN/Creatinine Ratio 10.0 L (14-18) Glucose 91 (70-99) mg/dL Lactic Acid (0.4-2.0) mmol/L Calcium 8.7 (8.5-10.1) mg/dL Phosphorus (2.6-4.7) mg/dL Magnesium (1.8-2.4) mg/dL Total Bilirubin 0.5 (0.2-1.0) mg/dL AST 11 L (15-37) U/L ALT 12 L (16-63) U/L Alkaline Phosphatase 77 (46-116) U/L Troponin I (0.00-0.056) ng/mL C-Reactive Protein (<1.0) mg/dL NT-Pro-B Natriuret Pep (0-125) pg/mL Total Protein 6.0 L (6.4-8.2) g/dl Albumin 2.9 L (3.4-5.0) g/dl Globulin 3.1 gm/dL Albumin/Globulin Ratio 0.9 L (1-2) Procalcitonin <0.05 ng/mL Urine Color (Yellow) Urine Appearance (Clear) Urine pH (5.0-8.0) Ur Specific [place] (1.005-1.030) Urine Protein (Negative) Urine Glucose (UA) (Negative) Urine Ketones (Negative) Urine Occult Blood (Negative) Urine Nitrite (Negative) Urine Bilirubin (Negative) Urine Urobilinogen (0.2-1.0) Ur Leukocyte Esterase (Negative) Urine RBC (0-5) /hpf Urine WBC (0-5) /hpf Ur Epithelial Cells (0-5) /hpf Urine Bacteria (FEW) /hpf Urine Mucus (FEW) /hpf Influenza Type A RNA (NEGATIVE) RSV RNA (INAAT) (NEGATIVE) Influenza Type B RNA (NEGATIVE) SARS-CoV-2 RNA (JESSICA) (NEGATIVE) Ari Results Last 24 Hours: Microbiology 01/29/21 16:30 Gram Stain - Final Sputum - Expectorated Med Orders - Current: Current Medications Acetaminophen (Acetaminophen 325 Mg Tab) 650 mg PO Q6H PRN PRN Reason: Pain (Mild 1-3)/fever Last Admin: 01/30/21 02:50 Dose: 650 mg Documented by: Albuterol/Ipratropium (Albuterol/Ipratropium 3.0-0.5 Mg/3 Ml Neb Soln) 3 ml NEB Q4HRRT PRN PRN Reason: Shortness Of Breath/wheezing Last Admin: 01/30/21 02:43 Dose: 3 ml Documented by: Albuterol/Ipratropium (Albuterol/Ipratropium 3.0-0.5 Mg/3 Ml Neb Soln) 3 ml NEB TIDRT [facility] Allopurinol (Allopurinol 100 Mg Tab) 100 mg PO DAILY [facility] Last Admin: 01/30/21 12:32 Dose: 100 mg Documented by: Amlodipine Besylate (Amlodipine 10 Mg Tab) 10 mg PO BEDTIME [facility] Last Admin: 01/29/21 22:58 Dose: 10 mg Documented by: Apixaban (Apixaban 5 Mg Tab) 5 mg PO BID [facility] Last Admin: 01/30/21 12:33 Dose: 5 mg Documented by: Aspirin (Aspirin 81 Mg Tab.Ec) 81 mg PO DAILY [facility] Last Admin: 01/30/21 12:31 Dose: 81 mg Documented by: Atorvastatin Calcium (Atorvastatin 20 Mg Tab) 20 mg PO DAILY [facility] Last Admin: 01/30/21 12:34 Dose: 20 mg Documented by: Buspirone HCl (Buspirone 5 Mg Tab) 7.5 mg PO BID [facility] Last Admin: 01/30/21 12:33 Dose: 7.5 mg Documented by: Cholecalciferol (Cholecalciferol (Vitamin D3) 25 Mcg Tab) 50 mcg PO DAILY [facility] Last Admin: 01/30/21 12:31 Dose: 50 mcg Documented by: Citalopram Hydrobromide (Citalopram 20 Mg Tab) 40 mg PO BEDTIME [facility] Last Admin: 01/29/21 22:57 Dose: 40 mg Documented by: Docusate Sodium (Docusate Sodium 100 Mg Cap) 100 mg PO BID PRN PRN Reason: Constipation Doxazosin Mesylate (Doxazosin 2 Mg Tab) 2 mg PO BEDTIME [facility] Last Admin: 01/29/21 22:55 Dose: 2 mg Documented by: Finasteride (Finasteride 5 Mg Tab) 5 mg PO DAILY [facility] Last Admin: 01/30/21 12:32 Dose: 5 mg Documented by: Furosemide (Furosemide 40 Mg/4 Ml Vial) 40 mg IVPUSH BID [facility] Last Admin: 01/30/21 12:34 Dose: 40 mg Documented by: Guaifenesin (Guaifenesin 600 Mg Tab.Er) 1,200 mg PO BID PRN PRN Reason: Cough Last Admin: 01/30/21 12:33 Dose: 1,200 mg Documented by: Guaifenesin/Phenylephrine HCl (Guaifenesin/Dextromethorphan 100-10 Mg/5 Ml Soln 5 Ml Cup) 10 ml PO QID PRN PRN Reason: Cough Last Admin: 01/30/21 00:14 Dose: 10 ml Documented by: Hydralazine HCl (Hydralazine 20 Mg/Ml Sdv) 10 mg IVPUSH Q4H PRN PRN Reason: Hypertension Promethazine HCl 12.5 mg/ (Sodium Chloride) 50.5 mls @ 100 mls/hr IV Q6H PRN PRN Reason: Nausea/Vomiting Isosorbide Mononitrate (Isosorbide Mononitrate 60 Mg Tab.Er) 60 mg PO BEDTIME [facility] Last Admin: 01/29/21 22:57 Dose: 60 mg Documented by: Levothyroxine Sodium (Levothyroxine 200 Mcg Tab) 200 mcg PO ACBREAKFAST [facility] Last Admin: 01/30/21 07:13 Dose: 200 mcg Documented by: Lubiprostone (Lubiprostone 24 Mcg Cap) 24 mcg PO BID [facility] Mometasone Furoate/Formoterol Fumar (Formoterol/Mometasone 200-5 Mcg 8.8 Gm Inhaler) 2 puff IH BIDRT [facility] Last Admin: 01/30/21 07:24 Dose: 2 puff Documented by: Oxybutynin Chloride (Oxybutynin 5 Mg Tab) 5 mg PO BID [facility] Oxycodone HCl (Oxycodone 5 Mg Tab) 5 mg PO Q6H PRN PRN Reason: Pain (moderate 4-6) Last Admin: 01/30/21 10:14 Dose: 5 mg Documented by: Pantoprazole Sodium (Pantoprazole 40 Mg Tab.Cr) 40 mg PO BIDAC [facility] Last Admin: 01/30/21 07:13 Dose: 40 mg Documented by: Suvorexant [Belsomra (] 20 Mg Tablet) 0 each PO BEDTIME PRN PRN Reason: Insomnia Potassium Chloride (Potassium Chloride 20 Meq Tab.Er) 20 meq PO DAILY [facility] Last Admin: 01/30/21 12:33 Dose: 20 meq Documented by: Pregabalin (Pregabalin 75 Mg Cap) 150 mg PO TID [facility] Last Admin: 01/30/21 12:32 Dose: 150 mg Documented by: Senna/Docusate Sodium (Docusate Sodium/Sennosides 50-8.6 Mg Tab) 2 tab PO BID PRN PRN Reason: Constipation Sodium Chloride (Sodium Chloride 0.9% 10 Ml Syringe) 10 ml FLUSH ASDIRECTED PRN PRN Reason: Keep Vein Open Last Admin: 01/29/21 14:45 Dose: 10 ml Documented by: Sodium Phosphate (Phosphorus #1 250 Mg Tab) 250 mg PO QID [facility] Stop: 01/30/21 21:01 Last Admin: 01/30/21 12:32 Dose: 250 mg Documented by: Tamsulosin HCl (Tamsulosin 0.4 Mg Cap.Er) 0.4 mg PO BEDTIME [facility] Last Admin: 01/29/21 22:57 Dose: 0.4 mg Documented by: Trazodone HCl (Trazodone 50 Mg Tab) 50 mg PO BEDTIME PRN PRN Reason: insomia Discontinued Medications Albuterol (Albuterol 0.083% 2.5 Mg/3 Ml Neb Soln) 2.5 mg NEB ONETIME ONE Stop: 01/29/21 16:02 Last Admin: 01/29/21 16:26 Dose: 2.5 mg Documented by: Albuterol/Ipratropium (Albuterol/Ipratropium 3.0-0.5 Mg/3 Ml Neb Soln) 3 ml NEB TIDRT [facility] Allopurinol (Allopurinol 100 Mg Tab) 100 mg PO DAILY [facility] Last Admin: 01/30/21 12:11 Dose: Not Given Documented by: Apixaban (Apixaban 5 Mg Tab) 5 mg PO BID [facility] Last Admin: 01/30/21 12:06 Dose: Not Given Documented by: Aspirin (Aspirin 81 Mg Tab.Ec) 81 mg PO DAILY [facility] Last Admin: 01/30/21 12:06 Dose: Not Given Documented by: Atorvastatin Calcium (Atorvastatin 20 Mg Tab) 20 mg PO DAILY [facility] Last Admin: 01/30/21 12:10 Dose: Not Given Documented by: Buspirone HCl (Buspirone 5 Mg Tab) 7.5 mg PO BID [facility] Last Admin: 01/30/21 12:06 Dose: Not Given Documented by: Carvedilol (Carvedilol 3.125 Mg Tab) 3.125 mg PO BIDMEALS [facility] Last Admin: 01/30/21 12:06 Dose: Not Given Documented by: Cholecalciferol (Cholecalciferol (Vitamin D3) 25 Mcg Tab) 50 mcg PO DAILY [facility] Last Admin: 01/30/21 12:10 Dose: Not Given Documented by: Doxazosin Mesylate (Doxazosin 4 Mg Tab) 4 mg PO BEDTIME [facility] Last Admin: 01/30/21 12:05 Dose: Not Given Documented by: Enoxaparin Sodium (Enoxaparin 40 Mg/0.4 Ml Syringe) 40 mg SUBCUT DAILY [facility] Finasteride (Finasteride 5 Mg Tab) 5 mg PO DAILY [facility] Last Admin: 01/30/21 12:10 Dose: Not Given Documented by: Furosemide (Furosemide 40 Mg/4 Ml Vial) 40 mg IVPUSH BID [facility] Last Admin: 01/30/21 12:09 Dose: Not Given Documented by: Sodium Chloride (Normal Saline) 100 mls @ 60 mls/hr IV ASDIRECTED [facility] Last Admin: 01/29/21 15:50 Dose: 60 mls/hr Documented by: Ceftriaxone Sodium 1 gm/ (Sodium Chloride) 100 mls @ 200 mls/hr IV ONETIME ONE Stop: 01/29/21 16:51 Last Admin: 01/29/21 15:30 Dose: 200 mls/hr Documented by: Ceftriaxone Sodium 2 gm/ (Sodium Chloride) 100 mls @ 200 mls/hr IV Q24H [facility] Azithromycin 500 mg/ Sodium (Chloride) 250 mls @ 250 mls/hr IV Q24H [facility] Sodium Chloride (Normal Saline) 500 mls @ 250 mls/hr IV ONETIME ONE Stop: 01/30/21 00:41 Last Admin: 01/29/21 22:58 Dose: 250 mls/hr Documented by: Sodium Chloride (Normal Saline) Confirm Administered Dose 1,000 mls @ as direct ed .ROUTE .STK-MED ONE Stop: 01/29/21 22:48 Last Admin: 01/29/21 22:59 Dose: Not Given Documented by: Iopamidol (Iopamidol 755 Mg/Ml 100 Ml Bottle) 100 ml IVPUSH ONETIME ONE Stop: 01/29/21 15:30 Last Admin: 01/29/21 15:47 Dose: 100 ml Documented by: Levothyroxine Sodium (Levothyroxine 25 Mcg Tab) 25 mcg PO DAILY [facility] Morphine Sulfate (Morphine 2 Mg/Ml Syringe) 2 mg IVPUSH Q4H PRN PRN Reason: Pain (severe 7-10) Stop: 01/30/21 16:55 Non-Formulary Medication (Naloxone Hcl [Narcan]) 4 mg NS ASDIRECTED PRN PRN Reason: Opioid Overdose Polyethylene Glycol (Polyethylene Glycol 3350 Powder 17 Gm Packet) gm PO Q72H [facility] Pregabalin (Pregabalin 75 Mg Cap) 150 mg PO TID [facility] Last Admin: 01/30/21 12:10 Dose: Not Given Documented by: Sodium Chloride (Sodium Chloride 0.9% 10 Ml Syringe) 10 ml FLUSH ONETIME PRN PRN Reason: Keep Vein Open Last Admin: 01/29/21 15:47 Dose: 10 ml Documented by: Sodium Phosphate (Phosphorus #1 250 Mg Tab) 250 mg PO QID [facility] Stop: 01/30/21 17:01 Last Admin: 01/30/21 12:10 Dose: Not Given Documented by: Zolpidem Tartrate (Zolpidem 5 Mg Tab) 2.5 mg PO BEDTIME PRN PRN Reason: Insomnia Stop: 02/01/21 21:01 - Exam Physical Findings Comments:: General Appearance: Alert, NAD Ears: Normal External Exam, Hearing Grossly Normal Nose: Normal Inspection Throat/Mouth: Normal Inspection, Normal Lips, Normal Voice, No Airway Compromise Head: Atraumatic Neck: Normal Inspection, Supple Respiratory/Chest: Chest Non-Tender, Respiratory Distress (Mild), Decreased Breath Sounds, Fine crackles noted to the bilateral bases, Fine expiratory wheeze noted bilaterally Cardiovascular: Normal Peripheral Pulses, Regular Rate, Rhythm, No Murmur. 1+ edema noted to the bilateral lower extremities Peripheral Pulses: 2+: Radial (L), Radial (R), Dorsalis Pedis (L), Dorsalis Pedis (R) GI/Abdominal: Normal Bowel Sounds, Soft, Non-Tender, No Distention (Male) Exam: Deferred Rectal (Males) Exam: Deferred Back Exam: Normal Inspection Extremities: Pedal Edema (1+ to bilateral lower extremities), Other (Open scabbed dried laceration noted to the dorsal left active left great toe). Tenderness noted to left medial tibial area Neurological: Alert, Oriented, Normal Cognition Psychiatric: Normal Affect, Normal Mood Skin Exam: Warm, Dry, Normal Color, No Rash, Wound/Incision (Old scabbed dry laceration noted to the dorsal aspect of left great toe) Lymphatic: No Adenopathy - Patient Data Lab Results Last 24 hrs: Laboratory Results - last 24 hr 01/29/21 01/29/21 01/29/21 Range/Units 13:55 13:55 14:25 WBC 5.21 (4.23-9.07) K/mm3 RBC 4.20 L (4.63-6.08) M/mm3 Hgb 12.9 L (13.7-17.5) gm/dl Hct 39.9 L (40.1-51.0) % MCV 95.0 H D (79.0-92.2) fl MCH 30.7 (25.7-32.2) pg MCHC 32.3 (32.2-35.5) g/dl RDW Std Deviation 49.2 H (35.1-43.9) fL Plt Count 101 L (163-337) K/mm3 MPV 11.5 (9.4-12.3) fl Neut % (Auto) 71.2 H (34.0-67.9) % Lymph % (Auto) 15.9 L (21.8-53.1) % Logan % (Auto) 11.9 (5.3-12.2) % Eos % (Auto) 0.6 L (0.8-7.0) Baso % (Auto) 0.4 (0.1-1.2) % Neut # (Auto) 3.71 (1.78-5.38) K/mm3 Lymph # (Auto) 0.83 L (1.32-3.57) K/mm3 Logan # (Auto) 0.62 (0.30-0.82) K/mm3 Eos # (Auto) 0.03 L (0.04-0.54) K/mm3 Baso # (Auto) 0.02 (0.01-0.08) K/mm3 Manual Slide Review D-Dimer, Quantitative (0.19-0.50) mg/L Sodium (136-145) mEq/L Potassium (3.5-5.1) mEq/L Chloride (98-107) mEq/L Carbon Dioxide (21-32) mEq/L Anion Gap (5-15) BUN (7-18) mg/dL Creatinine (0.7-1.3) mg/dL Est Cr Clr Drug Dosing mL/min Estimated GFR (MDRD) (>60) mL/min BUN/Creatinine Ratio (14-18) Glucose (70-99) mg/dL Lactic Acid (0.4-2.0) mmol/L Calcium (8.5-10.1) mg/dL Phosphorus (2.6-4.7) mg/dL Magnesium (1.8-2.4) mg/dL Total Bilirubin (0.2-1.0) mg/dL AST (15-37) U/L ALT (16-63) U/L Alkaline Phosphatase (46-116) U/L Troponin I (0.00-0.056) ng/mL C-Reactive Protein (<1.0) mg/dL NT-Pro-B Natriuret Pep (0-125) pg/mL Total Protein (6.4-8.2) g/dl Albumin (3.4-5.0) g/dl Globulin gm/dL Albumin/Globulin Ratio (1-2) Procalcitonin ng/mL Urine Color (Yellow) Urine Appearance (Clear) Urine pH (5.0-8.0) Ur Specific [place] (1.005-1.030) Urine Protein (Negative) Urine Glucose (UA) (Negative) Urine Ketones (Negative) Urine Occult Blood (Negative) Urine Nitrite (Negative) Urine Bilirubin (Negative) Urine Urobilinogen (0.2-1.0) Ur Leukocyte Esterase (Negative) Urine RBC (0-5) /hpf Urine WBC (0-5) /hpf Ur Epithelial Cells (0-5) /hpf Urine Bacteria (FEW) /hpf Urine Mucus (FEW) /hpf Influenza Type A RNA Negative (NEGATIVE) RSV RNA (INAAT) Positive H (NEGATIVE) Influenza Type B RNA Negative (NEGATIVE) SARS-CoV-2 RNA (JESSICA) Negative (NEGATIVE) 01/29/21 01/29/21 01/29/21 Range/Units 14:25 14:25 14:25 WBC (4.23-9.07) K/mm3 RBC (4.63-6.08) M/mm3 Hgb (13.7-17.5) gm/dl Hct (40.1-51.0) % MCV (79.0-92.2) fl MCH (25.7-32.2) pg MCHC (32.2-35.5) g/dl RDW Std Deviation (35.1-43.9) fL Plt Count (163-337) K/mm3 MPV (9.4-12.3) fl Neut % (Auto) (34.0-67.9) % Lymph % (Auto) (21.8-53.1) % Logan % (Auto) (5.3-12.2) % Eos % (Auto) (0.8-7.0) Baso % (Auto) (0.1-1.2) % Neut # (Auto) (1.78-5.38) K/mm3 Lymph # (Auto) (1.32-3.57) K/mm3 Logan # (Auto) (0.30-0.82) K/mm3 Eos # (Auto) (0.04-0.54) K/mm3 Baso # (Auto) (0.01-0.08) K/mm3 Manual Slide Review D-Dimer, Quantitative 0.98 H (0.19-0.50) mg/L Sodium 134 L (136-145) mEq/L Potassium 4.6 (3.5-5.1) mEq/L Chloride 102 (98-107) mEq/L Carbon Dioxide 24 (21-32) mEq/L Anion Gap 12.6 (5-15) BUN 13 (7-18) mg/dL Creatinine 1.3 (0.7-1.3) mg/dL Est Cr Clr Drug Dosing 62.29 mL/min Estimated GFR (MDRD) 54 (>60) mL/min BUN/Creatinine Ratio 10.0 L (14-18) Glucose 99 (70-99) mg/dL Lactic Acid (0.4-2.0) mmol/L Calcium 9.7 (8.5-10.1) mg/dL Phosphorus (2.6-4.7) mg/dL Magnesium 2.0 (1.8-2.4) mg/dL Total Bilirubin 0.3 (0.2-1.0) mg/dL AST 12 L (15-37) U/L ALT 10 L (16-63) U/L Alkaline Phosphatase 90 (46-116) U/L Troponin I < 0.017 (0.00-0.056) ng/mL C-Reactive Protein 2.4 H* (<1.0) mg/dL NT-Pro-B Natriuret Pep 1924 H (0-125) pg/mL Total Protein 6.9 (6.4-8.2) g/dl Albumin 3.2 L (3.4-5.0) g/dl Globulin 3.7 gm/dL Albumin/Globulin Ratio 0.9 L (1-2) Procalcitonin ng/mL Urine Color (Yellow) Urine Appearance (Clear) Urine pH (5.0-8.0) Ur Specific [place] (1.005-1.030) Urine Protein (Negative) Urine Glucose (UA) (Negative) Urine Ketones (Negative) Urine Occult Blood (Negative) Urine Nitrite (Negative) Urine Bilirubin (Negative) Urine Urobilinogen (0.2-1.0) Ur Leukocyte Esterase (Negative) Urine RBC (0-5) /hpf Urine WBC (0-5) /hpf Ur Epithelial Cells (0-5) /hpf Urine Bacteria (FEW) /hpf Urine Mucus (FEW) /hpf Influenza Type A RNA (NEGATIVE) RSV RNA (INAAT) (NEGATIVE) Influenza Type B RNA (NEGATIVE) SARS-CoV-2 RNA (JESSICA) (NEGATIVE) 01/29/21 01/29/21 01/29/21 Range/Units 14:25 16:30 17:20 WBC (4.23-9.07) K/mm3 RBC (4.63-6.08) M/mm3 Hgb (13.7-17.5) gm/dl Hct (40.1-51.0) % MCV (79.0-92.2) fl MCH (25.7-32.2) pg MCHC (32.2-35.5) g/dl RDW Std Deviation (35.1-43.9) fL Plt Count (163-337) K/mm3 MPV (9.4-12.3) fl Neut % (Auto) (34.0-67.9) % Lymph % (Auto) (21.8-53.1) % Logan % (Auto) (5.3-12.2) % Eos % (Auto) (0.8-7.0) Baso % (Auto) (0.1-1.2) % Neut # (Auto) (1.78-5.38) K/mm3 Lymph # (Auto) (1.32-3.57) K/mm3 Logan # (Auto) (0.30-0.82) K/mm3 Eos # (Auto) (0.04-0.54) K/mm3 Baso # (Auto) (0.01-0.08) K/mm3 Manual Slide Review D-Dimer, Quantitative (0.19-0.50) mg/L Sodium (136-145) mEq/L Potassium (3.5-5.1) mEq/L Chloride (98-107) mEq/L Carbon Dioxide (21-32) mEq/L Anion Gap (5-15) BUN (7-18) mg/dL Creatinine (0.7-1.3) mg/dL Est Cr Clr Drug Dosing mL/min Estimated GFR (MDRD) (>60) mL/min BUN/Creatinine Ratio (14-18) Glucose (70-99) mg/dL Lactic Acid 1.0 (0.4-2.0) mmol/L Calcium (8.5-10.1) mg/dL Phosphorus 2.2 L (2.6-4.7) mg/dL Magnesium 2.0 (1.8-2.4) mg/dL Total Bilirubin (0.2-1.0) mg/dL AST (15-37) U/L ALT (16-63) U/L Alkaline Phosphatase (46-116) U/L Troponin I < 0.017 (0.00-0.056) ng/mL C-Reactive Protein (<1.0) mg/dL NT-Pro-B Natriuret Pep (0-125) pg/mL Total Protein (6.4-8.2) g/dl Albumin (3.4-5.0) g/dl Globulin gm/dL Albumin/Globulin Ratio (1-2) Procalcitonin ng/mL Urine Color Yellow (Yellow) Urine Appearance Clear (Clear) Urine pH 7.0 (5.0-8.0) Ur Specific [place] 1.015 (1.005-1.030) Urine Protein Trace H (Negative) Urine Glucose (UA) Negative (Negative) Urine Ketones Negative (Negative) Urine Occult Blood Negative (Negative) Urine Nitrite Negative (Negative) Urine Bilirubin Negative (Negative) Urine Urobilinogen 4.0 H (0.2-1.0) Ur Leukocyte Esterase Negative (Negative) Urine RBC 0-5 (0-5) /hpf Urine WBC 0-5 (0-5) /hpf Ur Epithelial Cells 0-5 (0-5) /hpf Urine Bacteria Not seen (FEW) /hpf Urine Mucus Not seen (FEW) /hpf Influenza Type A RNA (NEGATIVE) RSV RNA (INAAT) (NEGATIVE) Influenza Type B RNA (NEGATIVE) SARS-CoV-2 RNA (JESSICA) (NEGATIVE) 01/29/21 01/30/21 01/30/21 Range/Units 17:20 05:46 05:46 WBC 6.56 (4.23-9.07) K/mm3 RBC 3.82 L (4.63-6.08) M/mm3 Hgb 11.8 L (13.7-17.5) gm/dl Hct 36.4 L (40.1-51.0) % MCV 95.3 H (79.0-92.2) fl MCH 30.9 (25.7-32.2) pg MCHC 32.4 (32.2-35.5) g/dl RDW Std Deviation 48.4 H (35.1-43.9) fL Plt Count 89 L (163-337) K/mm3 MPV 11.5 (9.4-12.3) fl Neut % (Auto) 76.9 H (34.0-67.9) % Lymph % (Auto) 12.0 L (21.8-53.1) % Logan % (Auto) 10.4 (5.3-12.2) % Eos % (Auto) 0.2 L (0.8-7.0) Baso % (Auto) 0.3 (0.1-1.2) % Neut # (Auto) 5.05 (1.78-5.38) K/mm3 Lymph # (Auto) 0.79 L (1.32-3.57) K/mm3 Logan # (Auto) 0.68 (0.30-0.82) K/mm3 Eos # (Auto) 0.01 L (0.04-0.54) K/mm3 Baso # (Auto) 0.02 (0.01-0.08) K/mm3 Manual Slide Review Abnormal smear D-Dimer, Quantitative (0.19-0.50) mg/L Sodium 138 (136-145) mEq/L Potassium 4.4 (3.5-5.1) mEq/L Chloride 105 (98-107) mEq/L Carbon Dioxide 26 (21-32) mEq/L Anion Gap 11.4 (5-15) BUN 11 (7-18) mg/dL Creatinine 1.1 (0.7-1.3) mg/dL Est Cr Clr Drug Dosing 73.62 mL/min Estimated GFR (MDRD) > 60 (>60) mL/min BUN/Creatinine Ratio 10.0 L (14-18) Glucose 91 (70-99) mg/dL Lactic Acid (0.4-2.0) mmol/L Calcium 8.7 (8.5-10.1) mg/dL Phosphorus (2.6-4.7) mg/dL Magnesium (1.8-2.4) mg/dL Total Bilirubin 0.5 (0.2-1.0) mg/dL AST 11 L (15-37) U/L ALT 12 L (16-63) U/L Alkaline Phosphatase 77 (46-116) U/L Troponin I (0.00-0.056) ng/mL C-Reactive Protein (<1.0) mg/dL NT-Pro-B Natriuret Pep (0-125) pg/mL Total Protein 6.0 L (6.4-8.2) g/dl Albumin 2.9 L (3.4-5.0) g/dl Globulin 3.1 gm/dL Albumin/Globulin Ratio 0.9 L (1-2) Procalcitonin <0.05 ng/mL Urine Color (Yellow) Urine Appearance (Clear) Urine pH (5.0-8.0) Ur Specific [place] (1.005-1.030) Urine Protein (Negative) Urine Glucose (UA) (Negative) Urine Ketones (Negative) Urine Occult Blood (Negative) Urine Nitrite (Negative) Urine Bilirubin (Negative) Urine Urobilinogen (0.2-1.0) Ur Leukocyte Esterase (Negative) Urine RBC (0-5) /hpf Urine WBC (0-5) /hpf Ur Epithelial Cells (0-5) /hpf Urine Bacteria (FEW) /hpf Urine Mucus (FEW) /hpf Influenza Type A RNA (NEGATIVE) RSV RNA (INAAT) (NEGATIVE) Influenza Type B RNA (NEGATIVE) SARS-CoV-2 RNA (JESSICA) (NEGATIVE) Result Diagrams: 01/30/21 05:46 01/30/21 05:46 Ari Results Last 24 hrs: Microbiology 01/29/21 16:30 Gram Stain - Final Sputum - Expectorated Sepsis Event Note - Evaluation Sepsis Screening Result: No Definite Risk - Focused Exam Vital Signs: Vital Signs Temp Pulse Resp BP Pulse Ox Pulse Ox 01/30/21 10:02 95 01/30/21 09:16 96 01/30/21 07:45 37.6 C 53 L 20 137/74 96 01/30/21 07:24 98 01/30/21 05:47 37.9 C 01/30/21 04:32 37.9 C 01/30/21 04:05 38.2 C H 67 26 H 110/51 L 94 L 01/30/21 02:54 91 L 01/30/21 02:43 90 L - Problem List Review Problem List Initiated/Reviewed/Updated: Yes - My Orders Last 24 Hours: My Active Orders 01/29/21 16:55 Patient Status [ADT] Routine Bedrest Bedside Commode [RC] ASDIRECTED Cardiac Monitoring [RC] CONTINUOUS Intake and Output [RC] 04,16 Oxygen Therapy [RC] PRN Pulse Oximetry [RC] CONTINUOUS RT Aerosol Therapy [RC] ASDIRECTED RT Aerosol Therapy [RC] ASDIRECTED VTE/DVT Education [RC] DAILY Vital Signs [RC] Q4HR OT Evaluation and Treatment [CONS] Routine PT Evaluation and Treatment [CONS] Routine Acetaminophen [TylenoL] 650 mg PO Q6H PRN Albuterol/Ipratropium [DuoNeb 3.0-0.5 MG/3 ML] 3 ml NEB Q4HRRT PRN Docusate Sodium [Colace] 100 mg PO BID PRN Promethazine [Phenergan] 12.5 mg Sodium Chloride 0.9% [Normal Saline] 50 ml IV Q6H oxyCODONE 5 mg PO Q6H PRN Resuscitation Status Routine 01/29/21 16:59 Consult to Speech Language Pathology [SENIOR MEDICAL DIRECTOR Evaluation and Treatment] [CONS] Routine 01/29/21 Dinner Regular Diet [DIET] Docusate Sodium/Sennosides [Senna Plus] 2 tab PO BID PRN Patient's Own Medication [Ptom] 0 each PO BEDTIME PRN 01/29/21 17:20 BLOOD CULTURE [MREF] Stat 01/29/21 17:23 Isolation [COMM] Routine 01/29/21 17:25 hydrALAZINE [Apresoline] 10 mg IVPUSH Q4H PRN 01/29/21 18:35 BLOOD CULTURE [MREF] Stat 01/29/21 21:00 Isosorbide Mononitrate [Imdur] 60 mg PO BEDTIME amLODIPine [Norvasc] 10 mg PO BEDTIME 01/29/21 21:05 traZODone 50 mg PO BEDTIME PRN 01/29/21 21:08 Dextromethorphan/guaiFENesin [Robitussin DM] 10 ml PO QID PRN 01/29/21 21:30 Mometasone/Formoterol [Dulera 200-5 MCG] 2 puff IH BIDRT 01/29/21 21:45 Citalopram [Celexa] 40 mg PO BEDTIME Doxazosin [Cardura] 2 mg PO BEDTIME Pantoprazole [ProTONIX] 40 mg PO BIDAC 01/29/21 22:00 Tamsulosin [Flomax] 0.4 mg PO BEDTIME 01/30/21 06:00 Levothyroxine 200 mcg PO ACBREAKFAST 01/30/21 08:00 Echo Comp wo Cont [US] Routine 01/30/21 11:13 guaiFENesin [Mucinex] 1,200 mg PO BID PRN 01/30/21 11:15 RT Aerosol Therapy [RC] ASDIRECTED 01/30/21 12:00 Apixaban [Eliquis] 5 mg PO BID Aspirin [Halfprin] 81 mg PO DAILY Cholecalciferol (Vitamin D3) [Vitamin D3] 50 mcg PO DAILY Furosemide [Lasix] 40 mg IVPUSH BID Potassium Chloride [Klor-Con M20] 20 meq PO DAILY Pregabalin [Lyrica] 150 mg PO TID allopurinoL [Zyloprim] 100 mg PO DAILY atorvaSTATin [Lipitor] 20 mg PO DAILY busPIRone [Buspar] 7.5 mg PO BID 01/30/21 12:15 Finasteride [Proscar] 5 mg PO DAILY 01/30/21 13:00 Phosphorus #1 [Neutra-Phos] 250 mg PO QID 01/30/21 14:00 Albuterol/Ipratropium [DuoNeb 3.0-0.5 MG/3 ML] 3 ml NEB TIDRT 01/30/21 21:00 Lubiprostone [Amitiza] 24 mcg PO BID Oxybutynin 5 mg PO BID 01/31/21 05:00 CBC WITH AUTO DIFF [HEME] DAILY COMPREHENSIVE METABOLIC PN,CMP [CHEM] DAILY PHOSPHORUS [CHEM] Routine 02/01/21 05:00 CBC WITH AUTO DIFF [HEME] DAILY COMPREHENSIVE METABOLIC PN,CMP [CHEM] DAILY 02/02/21 05:00 CBC WITH AUTO DIFF [HEME] DAILY COMPREHENSIVE METABOLIC PN,CMP [CHEM] DAILY - Plan Plan:: Patient is a 70-year-old male with a history of hypertension, COPD, CHF, atrial fibrillation, and chronic back pain who presented to the ER due to worsening shortness of breath. Assessment and plan: Acute hypoxic respiratory failure Etiology could be due to RSV infection induced, CHF exacerbation and COPD In the ER, he had a SpO2 89% with 6L CTA chest - NO PE; small parenchymal densities within both lower lungs as well as left upper lung Pulse ox Oxygen therapy CHF, unknown type BNP 192 CXR - cardiomegaly with mild pulmonary vascular congestion. Troponin < 0.017 x [address] elevation Echocardiogram lasix 80mg po bid is on hold lasix 40mg iv bid. Intake and output Check electrolytes, Mag 2.0. phos 2.2 (phos was given) Pneumonia? had a fever this morning in pcp offer, 100.0. CXR - more focal density within the right lung base which could represent focal congestion although difficult to exclude small area of superimposed pneumnonia WBC 5.21 -> 6.56 Procalcitonin pending influenza A and B negative RSV positive Covid 19 negative. He has been fully vaccinated against covid 19 His fever could result from RSV infection No antibiotics at the moment. Continue to monitor Droplet isolation COPD Stable Continue inhalers Atrial fib Heart rate is controlled nebivolol 2.5mg daily Continue Eliquis 5mg bid Chronic back pain Home medications include trazodone 50 mg at bedtime and oxycodone/acetaminophen 10-325 mg every 4 hours as needed. I will change it to oxycodone 10 mg oral 3 times daily, trazodone 50 mg at bedtime and Ambien 2.5 mg at bedtime. Continue pregabalin 150mg tid open laceration to the dorsum of his left toe Wound culture Wound care HTN Continue amlodipine 10mg daily, imdur 60mg daily, nebivolol 2.5mg daily Hydralazine as needed Thrombocytopenia, chronic 101->89 platelets 151 on 07/12/2019 No evidence of bleeding. will continue his Eliquis but closely monitor. I will h old Eliquis if platelets continue to decrease or bleeding occurs. Repeat CBC in morning Elevation of D-dimer, 0.98 CTA chest - no PE. Patient has been on Eliquis. I would not like to do more work-up Continue Eliquis Hx of dysphagia Speech pathology consult Pulmonary nodule Repeat CT chest in 6 months DVT prophylaxis: Eliquis CODE STATUS: Full Prognosis: Good
[2021-01-30] MEDS ORDERED: Albuterol/Ipratropium 3.0-0.5 MG/3 ML Neb Soln NEB SCH (14:00)
[2021-01-30] MEDS: Albuterol/Ipratropium 3.0-0.5 MG/3 ML Neb Soln NEB SCH ×2 (14:09→20:11)
[2021-01-30] MEDS ORDERED: PREGABALIN 150 MG PO SCH (15:00)
[2021-01-30] MEDS: Isosorbide Mononitrate 60 MG Tab.ER PO SCH (20:45)
[2021-01-30] MEDS: Oxybutynin 5 MG Tab PO SCH (20:45)
[2021-01-30] MEDS: amLODIPine 10 MG Tab PO SCH (20:45)
[2021-01-30] MEDS: Citalopram 20 MG Tab PO SCH (20:46)
[2021-01-30] MEDS: Doxazosin 2 MG Tab PO SCH (20:46)
[2021-01-30] MEDS: Tamsulosin 0.4 MG Cap.ER PO SCH (20:47)
[2021-01-30] MEDS: Lubiprostone 24 MCG Cap PO SCH (20:47)
[2021-01-30] MEDS ORDERED: Zolpidem 5 MG Tab PO PRN (21:00)
[2021-01-31] MEDS: oxyCODONE 5 MG Tab PO PRN ×5 (04:29→22:05)
[2021-01-31] MEDS: Pantoprazole 40 MG Tab.CR PO SCH ×2 (05:37→16:23)
[2021-01-31] MEDS: Formoterol/Mometasone 200-5 MCG 8.8 GM Inhaler IH SCH ×2 (05:47→21:01)
[2021-01-31] MEDS: Albuterol/Ipratropium 3.0-0.5 MG/3 ML Neb Soln NEB SCH ×3 (05:47→21:01)
[2021-01-31] MEDS: Aspirin 81 MG Tab.EC PO SCH (09:08)
[2021-01-31] MEDS: busPIRone 5 MG Tab PO SCH ×2 (09:09→20:57)
[2021-01-31] MEDS: Potassium Chloride 20 MEQ Tab.ER PO SCH (09:10)
[2021-01-31] MEDS: Pregabalin 75 MG Cap PO SCH ×3 (09:10→20:56)
[2021-01-31] MEDS: Oxybutynin 5 MG Tab PO SCH ×2 (09:11→20:55)
[2021-01-31] MEDS: Finasteride 5 MG Tab PO SCH (09:11)
[2021-01-31] MEDS: Cholecalciferol (Vitamin D3) 25 MCG Tab PO SCH (09:11)
[2021-01-31] MEDS: atorvaSTATin 20 MG Tab PO SCH (09:12)
[2021-01-31] MEDS: Allopurinol 100 MG Tab PO SCH (09:12)
[2021-01-31] MEDS: Apixaban 5 MG Tab PO SCH ×2 (09:13→20:55)
[2021-01-31] MEDS: guaiFENesin/Dextromethorphan 100-10 MG/5 ML Soln 5 ML Cup PO PRN (09:14)
[2021-01-31] MEDS: Furosemide 40 MG/4 ML VIAL IVPUSH SCH (09:14)
[2021-01-31] MEDS: Lubiprostone 24 MCG Cap PO SCH ×2 (09:15→20:57)
--- NOTE | 2021-01-31 09:47 | CR ---
Chest: Portable view of the chest was obtained. Comparison: Prior chest CT study of 01/29/21 and chest x-ray also performed on 01/29/21. Heart size is slightly enlarged. Upper mediastinum is within normal limits. Increasing density is noted within the left upper lung from prior study. Slight increased lung markings are noted within both lungs. Slight linear density is seen within both lung bases. Impression: 1. Heart is slightly enlarged. Mild increasing central lung markings are seen possibly due to mild pulmonary vascular congestion. 2. Increasing density within the left upper chest from prior study which may represent an area of pneumonia versus asymmetric pulmonary vascular congestion. 3. Mild atelectasis likely present within the lung bases. Diagnostic code #3
--- NOTE | 2021-01-31 10:37 | PCM.PN ---
- General Info Date of Service: 01/31/21 Admission Dx/Problem (Free Text): Admission Diagnosis/Problem Admission Diagnosis/Problem Respiratory failure with hypoxia and hypercapnia Subjective Update: Patient is a 70-year-old male with a history of hypertension, COPD, CHF, atrial fibrillation, and chronic back pain who presented to the ER due to worsening shortness of breath. Patient was complaining of low back pain today. He was on only half the frequency of his oxycodone. This was increased this morning. Patient continues to be fatigued and short of breath with any activity. Functional Status: Reports: Pain Controlled - Review of Systems General: Reports: Fatigue HEENT: Reports: No Symptoms Pulmonary: Reports: Shortness of Breath, Cough Cardiovascular: Reports: No Symptoms Gastrointestinal: Reports: No Symptoms Musculoskeletal: Reports: Back Pain Psychiatric: Reports: No Symptoms - Patient Data Vitals - Most Recent: Last Vital Signs Temp 98.8 F 01/31/21 03:41 Pulse 92 01/31/21 03:41 Resp 24 H 01/31/21 03:41 BP 103/67 01/31/21 03:41 Pulse Ox 96 01/31/21 08:47 Weight - Most Recent: 269 lb 3.2 oz I&O - Last 24 Hours: Intake & Output 01/30/21 01/31/21 01/31/21 22:59 06:59 14:59 Intake Total 540 Output Total 1100 1125 Balance -560 -1125 Lab Results Last 24 Hours: Laboratory Results - last 24 hr 01/29/21 01/30/21 01/31/21 Range/Units 17:20 16:05 05:28 WBC 7.19 (4.23-9.07) K/mm3 RBC 3.71 L (4.63-6.08) M/mm3 Hgb 11.3 L (13.7-17.5) gm/dl Hct 35.4 L (40.1-51.0) % MCV 95.4 H (79.0-92.2) fl MCH 30.5 (25.7-32.2) pg MCHC 31.9 L (32.2-35.5) g/dl RDW Std Deviation 49.1 H (35.1-43.9) fL Plt Count 87 L (163-337) K/mm3 MPV 12.5 H (9.4-12.3) fl Neut % (Auto) 76.8 H (34.0-67.9) % Lymph % (Auto) 12.7 L (21.8-53.1) % [place] % (Auto) 9.9 (5.3-12.2) % Eos % (Auto) 0 L (0.8-7.0) Baso % (Auto) 0.3 (0.1-1.2) % Neut # (Auto) 5.53 H (1.78-5.38) K/mm3 Lymph # (Auto) 0.91 L (1.32-3.57) K/mm3 [place] # (Auto) 0.71 (0.30-0.82) K/mm3 Eos # (Auto) 0.00 L (0.04-0.54) K/mm3 Baso # (Auto) 0.02 (0.01-0.08) K/mm3 Manual Slide Review Abnormal smear Sodium (136-145) mEq/L Potassium (3.5-5.1) mEq/L Chloride (98-107) mEq/L Carbon Dioxide (21-32) mEq/L Anion Gap (5-15) BUN (7-18) mg/dL Creatinine (0.7-1.3) mg/dL Est Cr Clr Drug Dosing mL/min Estimated GFR (MDRD) (>60) mL/min BUN/Creatinine Ratio (14-18) Glucose (70-99) mg/dL Calcium (8.5-10.1) mg/dL Phosphorus (2.6-4.7) mg/dL Total Bilirubin (0.2-1.0) mg/dL AST (15-37) U/L ALT (16-63) U/L Alkaline Phosphatase (46-116) U/L Total Protein (6.4-8.2) g/dl Albumin (3.4-5.0) g/dl Globulin gm/dL Albumin/Globulin Ratio (1-2) Procalcitonin <0.05 ng/mL SARS-CoV-2 RNA (JESSICA) Negative (NEGATIVE) 01/31/21 Range/Units 05:28 WBC (4.23-9.07) K/mm3 RBC (4.63-6.08) M/mm3 Hgb (13.7-17.5) gm/dl Hct (40.1-51.0) % MCV (79.0-92.2) fl MCH (25.7-32.2) pg MCHC (32.2-35.5) g/dl RDW Std Deviation (35.1-43.9) fL Plt Count (163-337) K/mm3 MPV (9.4-12.3) fl Neut % (Auto) (34.0-67.9) % Lymph % (Auto) (21.8-53.1) % [place] % (Auto) (5.3-12.2) % Eos % (Auto) (0.8-7.0) Baso % (Auto) (0.1-1.2) % Neut # (Auto) (1.78-5.38) K/mm3 Lymph # (Auto) (1.32-3.57) K/mm3 [place] # (Auto) (0.30-0.82) K/mm3 Eos # (Auto) (0.04-0.54) K/mm3 Baso # (Auto) (0.01-0.08) K/mm3 Manual Slide Review Sodium 138 (136-145) mEq/L Potassium 4.0 (3.5-5.1) mEq/L Chloride 103 (98-107) mEq/L Carbon Dioxide 27 (21-32) mEq/L Anion Gap 12.0 (5-15) BUN 18 (7-18) mg/dL Creatinine 1.3 (0.7-1.3) mg/dL Est Cr Clr Drug Dosing 62.29 mL/min Estimated GFR (MDRD) 54 (>60) mL/min BUN/Creatinine Ratio 13.8 L (14-18) Glucose 105 H (70-99) mg/dL Calcium 8.6 (8.5-10.1) mg/dL Phosphorus 3.1 (2.6-4.7) mg/dL Total Bilirubin 0.6 (0.2-1.0) mg/dL AST 18 (15-37) U/L ALT 15 L (16-63) U/L Alkaline Phosphatase 64 (46-116) U/L Total Protein 5.6 L (6.4-8.2) g/dl Albumin 2.7 L (3.4-5.0) g/dl Globulin 2.9 gm/dL Albumin/Globulin Ratio 0.9 L (1-2) Procalcitonin ng/mL SARS-CoV-2 RNA (JESSICA) (NEGATIVE) Med Orders - Current: Current Medications Acetaminophen (Acetaminophen 325 Mg Tab) 650 mg PO Q6H PRN PRN Reason: Pain (Mild 1-3)/fever Last Admin: 01/30/21 22:53 Dose: 650 mg Documented by: Albuterol/Ipratropium (Albuterol/Ipratropium 3.0-0.5 Mg/3 Ml Neb Soln) 3 ml NEB Q4HRRT PRN PRN Reason: Shortness Of Breath/wheezing Last Admin: 01/30/21 02:43 Dose: 3 ml Documented by: Albuterol/Ipratropium (Albuterol/Ipratropium 3.0-0.5 Mg/3 Ml Neb Soln) 3 ml NEB TIDRT [facility] Last Admin: 01/31/21 05:47 Dose: 3 ml Documented by: Allopurinol (Allopurinol 100 Mg Tab) 100 mg PO DAILY [facility] Last Admin: 01/31/21 09:12 Dose: 100 mg Documented by: Amlodipine Besylate (Amlodipine 10 Mg Tab) 10 mg PO BEDTIME [facility] Last Admin: 01/30/21 20:45 Dose: 10 mg Documented by: Apixaban (Apixaban 5 Mg Tab) 5 mg PO BID [facility] Last Admin: 01/31/21 09:13 Dose: 5 mg Documented by: Aspirin (Aspirin 81 Mg Tab.Ec) 81 mg PO DAILY [facility] Last Admin: 01/31/21 09:08 Dose: 81 mg Documented by: Atorvastatin Calcium (Atorvastatin 20 Mg Tab) 20 mg PO DAILY [facility] Last Admin: 01/31/21 09:12 Dose: 20 mg Documented by: Buspirone HCl (Buspirone 5 Mg Tab) 7.5 mg PO BID [facility] Last Admin: 01/31/21 09:09 Dose: 7.5 mg Documented by: Cholecalciferol (Cholecalciferol (Vitamin D3) 25 Mcg Tab) 50 mcg PO DAILY [facility] Last Admin: 01/31/21 09:11 Dose: 50 mcg Documented by: Citalopram Hydrobromide (Citalopram 20 Mg Tab) 40 mg PO BEDTIME [facility] Last Admin: 01/30/21 20:46 Dose: 40 mg Documented by: Docusate Sodium (Docusate Sodium 100 Mg Cap) 100 mg PO BID PRN PRN Reason: Constipation Doxazosin Mesylate (Doxazosin 2 Mg Tab) 2 mg PO BEDTIME [facility] Last Admin: 01/30/21 20:46 Dose: 2 mg Documented by: Finasteride (Finasteride 5 Mg Tab) 5 mg PO DAILY [facility] Last Admin: 01/31/21 09:11 Dose: 5 mg Documented by: Furosemide (Furosemide 40 Mg/4 Ml Vial) 40 mg IVPUSH BID [facility] Last Admin: 01/31/21 09:14 Dose: 40 mg Documented by: Guaifenesin (Guaifenesin 600 Mg Tab.Er) 1,200 mg PO BID PRN PRN Reason: Cough Last Admin: 01/30/21 12:33 Dose: 1,200 mg Documented by: Guaifenesin/Dextromethorphan (Guaifenesin/Dextromethorphan 100-10 Mg/5 Ml Soln 5 Ml Cup) 10 ml PO QID PRN PRN Reason: Cough Last Admin: 01/31/21 09:14 Dose: 10 ml Documented by: Hydralazine HCl (Hydralazine 20 Mg/Ml Sdv) 10 mg IVPUSH Q4H PRN PRN Reason: Hypertension Promethazine HCl 12.5 mg/ (Sodium Chloride) 50.5 mls @ 100 mls/hr IV Q6H PRN PRN Reason: Nausea/Vomiting Isosorbide Mononitrate (Isosorbide Mononitrate 60 Mg Tab.Er) 60 mg PO BEDTIME [facility] Last Admin: 01/30/21 20:45 Dose: 60 mg Documented by: Levothyroxine Sodium (Levothyroxine 200 Mcg Tab) 200 mcg PO ACBREAKFAST [facility] Last Admin: 01/31/21 05:37 Dose: 200 mcg Documented by: Lubiprostone (Lubiprostone 24 Mcg Cap) 24 mcg PO BID [facility] Last Admin: 01/31/21 09:15 Dose: 24 mcg Documented by: Mometasone Furoate/Formoterol Fumar (Formoterol/Mometasone 200-5 Mcg 8.8 Gm Inhaler) 2 puff IH BIDRT [facility] Last Admin: 01/31/21 05:47 Dose: 2 puff Documented by: Oxybutynin Chloride (Oxybutynin 5 Mg Tab) 5 mg PO BID [facility] Last Admin: 01/31/21 09:11 Dose: 5 mg Documented by: Oxycodone HCl (Oxycodone 5 Mg Tab) 10 mg PO TID PRN PRN Reason: Pain (moderate 4-6) Last Admin: 01/31/21 09:13 Dose: 10 mg Documented by: Pantoprazole Sodium (Pantoprazole 40 Mg Tab.Cr) 40 mg PO BIDAC [facility] Last Admin: 01/31/21 05:37 Dose: 40 mg Documented by: Suvorexant [Belsomra (] 20 Mg Tablet) 0 each PO BEDTIME PRN PRN Reason: Insomnia Potassium Chloride (Potassium Chloride 20 Meq Tab.Er) 20 meq PO DAILY [facility] Last Admin: 01/31/21 09:10 Dose: 20 meq Documented by: Pregabalin (Pregabalin 75 Mg Cap) 150 mg PO TID [facility] Last Admin: 01/31/21 09:10 Dose: 150 mg Documented by: Senna/Docusate Sodium (Docusate Sodium/Sennosides 50-8.6 Mg Tab) 2 tab PO BID PRN PRN Reason: Constipation Sodium Chloride (Sodium Chloride 0.9% 10 Ml Syringe) 10 ml FLUSH ASDIRECTED PRN PRN Reason: Keep Vein Open Last Admin: 01/29/21 14:45 Dose: 10 ml Documented by: Tamsulosin HCl (Tamsulosin 0.4 Mg Cap.Er) 0.4 mg PO BEDTIME [facility] Last Admin: 01/30/21 20:47 Dose: 0.4 mg Documented by: Trazodone HCl (Trazodone 50 Mg Tab) 50 mg PO BEDTIME PRN PRN Reason: insomia Discontinued Medications Albuterol (Albuterol 0.083% 2.5 Mg/3 Ml Neb Soln) 2.5 mg NEB ONETIME ONE Stop: 01/29/21 16:02 Last Admin: 01/29/21 16:26 Dose: 2.5 mg Documented by: Albuterol/Ipratropium (Albuterol/Ipratropium 3.0-0.5 Mg/3 Ml Neb Soln) 3 ml NEB TIDRT [facility] Allopurinol (Allopurinol 100 Mg Tab) 100 mg PO DAILY [facility] Last Admin: 01/30/21 12:11 Dose: Not Given Documented by: Apixaban (Apixaban 5 Mg Tab) 5 mg PO BID [facility] Last Admin: 01/30/21 12:06 Dose: Not Given Documented by: Aspirin (Aspirin 81 Mg Tab.Ec) 81 mg PO DAILY [facility] Last Admin: 01/30/21 12:06 Dose: Not Given Documented by: Atorvastatin Calcium (Atorvastatin 20 Mg Tab) 20 mg PO DAILY [facility] Last Admin: 01/30/21 12:10 Dose: Not Given Documented by: Buspirone HCl (Buspirone 5 Mg Tab) 7.5 mg PO BID [facility] Last Admin: 01/30/21 12:06 Dose: Not Given Documented by: Carvedilol (Carvedilol 3.125 Mg Tab) 3.125 mg PO BIDMEALS [facility] Last Admin: 01/30/21 12:06 Dose: Not Given Documented by: Cholecalciferol (Cholecalciferol (Vitamin D3) 25 Mcg Tab) 50 mcg PO DAILY [facility] Last Admin: 01/30/21 12:10 Dose: Not Given Documented by: Doxazosin Mesylate (Doxazosin 4 Mg Tab) 4 mg PO BEDTIME [facility] Last Admin: 01/30/21 12:05 Dose: Not Given Documented by: Enoxaparin Sodium (Enoxaparin 40 Mg/0.4 Ml Syringe) 40 mg SUBCUT DAILY [facility] Finasteride (Finasteride 5 Mg Tab) 5 mg PO DAILY [facility] Last Admin: 01/30/21 12:10 Dose: Not Given Documented by: Furosemide (Furosemide 40 Mg/4 Ml Vial) 40 mg IVPUSH BID [facility] Last Admin: 01/30/21 12:09 Dose: Not Given Documented by: Sodium Chloride (Normal Saline) 100 mls @ 60 mls/hr IV ASDIRECTED [facility] Last Admin: 01/29/21 15:50 Dose: 60 mls/hr Documented by: Ceftriaxone Sodium 1 gm/ (Sodium Chloride) 100 mls @ 200 mls/hr IV ONETIME ONE Stop: 01/29/21 16:51 Last Admin: 01/29/21 15:30 Dose: 200 mls/hr Documented by: Ceftriaxone Sodium 2 gm/ (Sodium Chloride) 100 mls @ 200 mls/hr IV Q24H [facility] Azithromycin 500 mg/ Sodium (Chloride) 250 mls @ 250 mls/hr IV Q24H [facility] Sodium Chloride (Normal Saline) 500 mls @ 250 mls/hr IV ONETIME ONE Stop: 01/30/21 00:41 Last Admin: 01/29/21 22:58 Dose: 250 mls/hr Documented by: Sodium Chloride (Normal Saline) Confirm Administered Dose 1,000 mls @ as directed .ROUTE .STK-MED ONE Stop: 01/29/21 22:48 Last Admin: 01/29/21 22:59 Dose: Not Given Documented by: Iopamidol (Iopamidol 755 Mg/Ml 100 Ml Bottle) 100 ml IVPUSH ONETIME ONE Stop: 01/29/21 15:30 Last Admin: 01/29/21 15:47 Dose: 100 ml Documented by: Levothyroxine Sodium (Levothyroxine 25 Mcg Tab) 25 mcg PO DAILY [facility] Morphine Sulfate (Morphine 2 Mg/Ml Syringe) 2 mg IVPUSH Q4H PRN PRN Reason: Pain (severe 7-10) Stop: 01/30/21 16:55 Non-Formulary Medication (Naloxone Hcl [Narcan]) 4 mg NS ASDIRECTED PRN PRN Reason: Opioid Overdose Oxycodone HCl (Oxycodone 5 Mg Tab) 5 mg PO Q6H PRN PRN Reason: Pain (moderate 4-6) Last Admin: 01/30/21 10:14 Dose: 5 mg Documented by: Polyethylene Glycol (Polyethylene Glycol 3350 Powder 17 Gm Packet) gm PO Q72H [facility] Pregabalin (Pregabalin 75 Mg Cap) 150 mg PO TID [facility] Last Admin: 01/30/21 12:10 Dose: Not Given Documented by: Sodium Chloride (Sodium Chloride 0.9% 10 Ml Syringe) 10 ml FLUSH ONETIME PRN PRN Reason: Keep Vein Open Last Admin: 01/29/21 15:47 Dose: 10 ml Documented by: Sodium Phosphate (Phosphorus #1 250 Mg Tab) 250 mg PO QID [facility] Stop: 01/30/21 17:01 Last Admin: 01/30/21 12:10 Dose: Not Given Documented by: Sodium Phosphate (Phosphorus #1 250 Mg Tab) 250 mg PO QID [facility] Stop: 01/30/21 21:01 Last Admin: 01/30/21 20:47 Dose: 250 mg Documented by: Zolpidem Tartrate (Zolpidem 5 Mg Tab) 2.5 mg PO BEDTIME PRN PRN Reason: Insomnia Stop: 02/01/21 21:01 - Exam Quality Assessment: Supplemental Oxygen (High flow) General: Alert, Oriented HEENT: Pupils Equal, Mucous Membr. Moist/[place] Neck: Supple Lungs: Decreased Breath Sounds. No: Normal Respiratory Effort (Increased rate and effort) Cardiovascular: Regular Rate, Regular Rhythm GI/Abdominal Exam: Normal Bowel Sounds, Soft, Non-Tender, No Distention Extremities: Normal Capillary Refill, Pedal Edema (1-2+ left sided pitting edema right 1+) Skin: Warm, Dry, Intact Psy/Mental Status: Alert, Normal Affect, Normal Mood - Patient Data Lab Results Last 24 hrs: Laboratory Results - last 24 hr 01/29/21 01/30/21 01/31/21 Range/Units 17:20 16:05 05:28 WBC 7.19 (4.23-9.07) K/mm3 RBC 3.71 L (4.63-6.08) M/mm3 Hgb 11.3 L (13.7-17.5) gm/dl Hct 35.4 L (40.1-51.0) % MCV 95.4 H (79.0-92.2) fl MCH 30.5 (25.7-32.2) pg MCHC 31.9 L (32.2-35.5) g/dl RDW Std Deviation 49.1 H (35.1-43.9) fL Plt Count 87 L (163-337) K/mm3 MPV 12.5 H (9.4-12.3) fl Neut % (Auto) 76.8 H (34.0-67.9) % Lymph % (Auto) 12.7 L (21.8-53.1) % [place]ion % (Auto) 9.9 (5.3-12.2) % Eos % (Auto) 0 L (0.8-7.0) Baso % (Auto) 0.3 (0.1-1.2) % Neut # (Auto) 5.53 H (1.78-5.38) K/mm3 Lymph # (Auto) 0.91 L (1.32-3.57) K/mm3 [place]ion # (Auto) 0.71 (0.30-0.82) K/mm3 Eos # (Auto) 0.00 L (0.04-0.54) K/mm3 Baso # (Auto) 0.02 (0.01-0.08) K/mm3 Manual Slide Review Abnormal smear Sodium (136-145) mEq/L Potassium (3.5-5.1) mEq/L Chloride (98-107) mEq/L Carbon Dioxide (21-32) mEq/L Anion Gap (5-15) BUN (7-18) mg/dL Creatinine (0.7-1.3) mg/dL Est Cr Clr Drug Dosing mL/min Estimated GFR (MDRD) (>60) mL/min BUN/Creatinine Ratio (14-18) Glucose (70-99) mg/dL Calcium (8.5-10.1) mg/dL Phosphorus (2.6-4.7) mg/dL Total Bilirubin (0.2-1.0) mg/dL AST (15-37) U/L ALT (16-63) U/L Alkaline Phosphatase (46-116) U/L Total Protein (6.4-8.2) g/dl Albumin (3.4-5.0) g/dl Globulin gm/dL Albumin/Globulin Ratio (1-2) Procalcitonin <0.05 ng/mL SARS-CoV-2 RNA (JESSICA) Negative (NEGATIVE) 01/31/21 Range/Units 05:28 WBC (4.23-9.07) K/mm3 RBC (4.63-6.08) M/mm3 Hgb (13.7-17.5) gm/dl Hct (40.1-51.0) % MCV (79.0-92.2) fl MCH (25.7-32.2) pg MCHC (32.2-35.5) g/dl RDW Std Deviation (35.1-43.9) fL Plt Count (163-337) K/mm3 MPV (9.4-12.3) fl Neut % (Auto) (34.0-67.9) % Lymph % (Auto) (21.8-53.1) % Irion % (Auto) (5.3-12.2) % Eos % (Auto) (0.8-7.0) Baso % (Auto) (0.1-1.2) % Neut # (Auto) (1.78-5.38) K/mm3 Lymph # (Auto) (1.32-3.57) K/mm3 [place]ion # (Auto) (0.30-0.82) K/mm3 Eos # (Auto) (0.04-0.54) K/mm3 Baso # (Auto) (0.01-0.08) K/mm3 Manual Slide Review Sodium 138 (136-145) mEq/L Potassium 4.0 (3.5-5.1) mEq/L Chloride 103 (98-107) mEq/L Carbon Dioxide 27 (21-32) mEq/L Anion Gap 12.0 (5-15) BUN 18 (7-18) mg/dL Creatinine 1.3 (0.7-1.3) mg/dL Est Cr Clr Drug Dosing 62.29 mL/min Estimated GFR (MDRD) 54 (>60) mL/min BUN/Creatinine Ratio 13.8 L (14-18) Glucose 105 H (70-99) mg/dL Calcium 8.6 (8.5-10.1) mg/dL Phosphorus 3.1 (2.6-4.7) mg/dL Total Bilirubin 0.6 (0.2-1.0) mg/dL AST 18 (15-37) U/L ALT 15 L (16-63) U/L Alkaline Phosphatase 64 (46-116) U/L Total Protein 5.6 L (6.4-8.2) g/dl Albumin 2.7 L (3.4-5.0) g/dl Globulin 2.9 gm/dL Albumin/Globulin Ratio 0.9 L (1-2) Procalcitonin ng/mL SARS-CoV-2 RNA (JESSICA) (NEGATIVE) Result Diagrams: 01/31/21 05:28 01/31/21 05:28 Sepsis Event Note - Evaluation Sepsis Screening Result: No Definite Risk - Focused Exam Vital Signs: Vital Signs Temp Pulse Resp BP Pulse Ox Pulse Ox Pulse Ox 01/31/21 08:47 96 01/31/21 08:28 97 01/31/21 05:48 97 01/31/21 03:41 98.8 F 92 24 H 103/67 93 L 01/31/21 00:23 91 L 01/31/21 00:05 100.8 F H 63 24 H 157/75 H 89 L 01/31/21 00:04 86 L 01/30/21 22:49 99.3 F - Problem List & Annotations (1) RSV (respiratory syncytial virus infection) SNOMED Code(s): 62133985 Code(s): B97.4 - RESPIRATORY SYNCYTIAL VIRUS CAUSING DISEASES CLASSD [id number] Status: Acute Current Visit: Yes (2) COPD exacerbation SNOMED Code(s): 503444694 Code(s): J44.1 - CHRONIC OBSTRUCTIVE PULMONARY DISEASE W (ACUTE) EXACERBATION Status: Acute Current Visit: Yes (3) Congestive heart failure SNOMED Code(s): 87015363 Code(s): I50.9 - HEART FAILURE, UNSPECIFIED Status: Chronic Priority: High Current Visit: Yes Qualifiers: Qualified Code(s): I50.33 - Acute on chronic diastolic (congestive) heart failure - Problem List Review Problem List Initiated/Reviewed/Updated: Yes - Plan Plan:: Patient is a 70-year-old male with a history of hypertension, COPD, CHF, atrial fibrillation, and chronic back pain who presented to the ER due to worsening shortness of breath. Assessment and plan: Acute hypoxic respiratory failure Etiology could be due to RSV infection induced, CHF exacerbation and COPD Based on chest x-ray, white count, procalcitonin, and being afebrile hypoxemia likely secondary to RSV and CHF. In the ER, he had a SpO2 89% with 6L CTA chest - NO PE; small parenchymal densities within both lower lungs as well as left upper lung Pulse ox Oxygen therapy CHF, unknown type BNP 1924 CXR - cardiomegaly with mild pulmonary vascular congestion. Troponin < 0.017 x [address] elevation Echocardiogram lasix 80mg po bid is on hold lasix 40mg iv bid. Intake and output Check electrolytes, Mag 2.0. phos 2.2 (phos was given) Echocardiogram showed a normal left ejection fraction of 55 to 60%. No mention of diastolic dysfunction. The right ventricle systolic pressure was normal at 32.4 mmHg. Technically difficult study. Suspect normal LV systolic function. Minimal valvular disease. Pneumonia? had a fever this morning in pcp offer, 100.0. CXR this morning showed mild increasing central lung markings possibly due to mild pulmonary vascular congestion. Increasing density within the left upper chest from prior study which may represent an area of pneumonia versus asymmetric pulmonary vascular congestion. WBC 5.21 -> 6.56 Procalcitonin less than 0.05 influenza A and B negative RSV positive Covid 19 negative. He has been fully vaccinated against covid 19 His fever could result from RSV infection No antibiotics at the moment. Continue to monitor Droplet isolation Chest x-ray is most likely reflective of CHF more than it is of active pneumonia considering the normal white count, afebrile, and low procalcitonin. Patient does clearly have RSV which is likely worsening his pulmonary function. COPD Stable Continue inhalers Atrial fib Heart rate is controlled nebivolol 2.5mg daily Continue Eliquis 5mg bid patient does have thrombocytopenia with platelet count of 87,000. Will follow closely for bleeding. Chronic back pain Home medications include trazodone 50 mg at bedtime and oxycodone/acetaminophen 10-325 mg every 4 hours as needed. I will change it to oxycodone 10 mg oral 6 times daily as needed, trazodone 50 mg at bedtime and Ambien 2.5 mg at bedtime. Continue pregabalin 150mg tid open laceration to the dorsum of his left toe Wound culture Wound care Has follow-up with podiatry. HTN Continue amlodipine 10mg daily, imdur 60mg daily, nebivolol 2.5mg daily Hydralazine as needed Thrombocytopenia, chronic 101->89-> 87 platelets 151 on 07/12/2019 No evidence of bleeding. will continue his Eliquis but closely monitor. I will hold Eliquis if platelets continue to decrease or bleeding occurs. Repeat CBC in morning Elevation of D-dimer, 0.98 CTA chest - no PE. Patient has been on Eliquis. I would not like to do more work-up Continue Eliquis Hx of dysphagia Speech pathology consultno dysphagia. On mechanical soft because he does not have his dentures. Pulmonary nodule Repeat CT chest in 6 months DVT prophylaxis: Eliquis CODE STATUS: Full Prognosis: Good
[2021-01-31] MEDS: Acetaminophen 325 MG Tab PO PRN ×2 (11:39→11:48)
[2021-01-31] MEDS: Furosemide 100 MG/10 ML SDV IVPUSH SCH (13:16)
[2021-01-31] MEDS: cefTRIAXone 2 GM in Sodium Chloride 0.9% 100 ML IV SCH (13:32)
[2021-01-31] MEDS: Azithromycin 500 MG in Sodium Chloride 0.9% 250 ML IV SCH (16:24)
[2021-01-31] MEDS: Citalopram 20 MG Tab PO SCH (20:55)
[2021-01-31] MEDS: amLODIPine 10 MG Tab PO SCH (20:56)
[2021-01-31] MEDS: Tamsulosin 0.4 MG Cap.ER PO SCH (20:56)
[2021-01-31] MEDS: Doxazosin 2 MG Tab PO SCH (20:57)
[2021-02-01] MEDS: oxyCODONE 5 MG Tab PO PRN ×4 (05:07→21:03)
[2021-02-01] MEDS: Pantoprazole 40 MG Tab.CR PO SCH ×2 (05:07→15:38)
[2021-02-01] MEDS: Furosemide 100 MG/10 ML SDV IVPUSH SCH ×2 (05:08→13:54)
[2021-02-01] MEDS: Albuterol/Ipratropium 3.0-0.5 MG/3 ML Neb Soln NEB SCH ×3 (06:05→20:39)
[2021-02-01] MEDS: Formoterol/Mometasone 200-5 MCG 8.8 GM Inhaler IH SCH ×2 (06:06→20:39)
[2021-02-01] MEDS: Isosorbide Mononitrate 30 MG Tab.ER PO SCH (09:04)
[2021-02-01] MEDS: Potassium Chloride 20 MEQ Tab.ER PO SCH (09:04)
[2021-02-01] MEDS: Cholecalciferol (Vitamin D3) 25 MCG Tab PO SCH (09:04)
[2021-02-01] MEDS: Allopurinol 100 MG Tab PO SCH (09:04)
[2021-02-01] MEDS: Apixaban 5 MG Tab PO SCH ×2 (09:04→21:00)
[2021-02-01] MEDS: Oxybutynin 5 MG Tab PO SCH ×2 (09:04→21:03)
[2021-02-01] MEDS: Aspirin 81 MG Tab.EC PO SCH (09:04)
[2021-02-01] MEDS: busPIRone 5 MG Tab PO SCH ×2 (09:05→20:58)
[2021-02-01] MEDS: atorvaSTATin 20 MG Tab PO SCH (09:05)
[2021-02-01] MEDS: Pregabalin 75 MG Cap PO SCH ×3 (09:06→21:01)
[2021-02-01] MEDS: Lubiprostone 24 MCG Cap PO SCH ×2 (09:09→20:57)
[2021-02-01] MEDS: guaiFENesin 600 MG Tab.ER PO PRN (09:22)
[2021-02-01] MEDS: Albuterol/Ipratropium 3.0-0.5 MG/3 ML Neb Soln NEB PRN (09:57)
--- NOTE | 2021-02-01 11:44 | PCM.PN ---
- General Info Date of Service: 02/01/21 Admission Dx/Problem (Free Text): Admission Diagnosis/Problem Admission Diagnosis/Problem Respiratory failure with hypoxia and hypercapnia Subjective Update: Patient had a temperature this morning of 100.8. Until this time he was afebrile since approximately 1300 yesterday. Yesterday I did start him on Rocephin and azithromycin secondary to worsening of his left upper lobe infiltrate. White count continues to be normal at 7.5, but procalcitonin did increase from less than 0.05-0.23. This may not be significant, but blood cultures were redrawn and we will wait for this second set before adjusting antibiotics. Patient states he is starting to feel better and has decreased his oxygen requirements down to 5 L from 40 L yesterday. I increased his Lasix to 60 mg IV twice daily yesterday. Appetite is good. Functional Status: Reports: Pain Controlled - Review of Systems General: Reports: No Symptoms HEENT: Reports: No Symptoms Pulmonary: Reports: Cough, Sputum Cardiovascular: Reports: No Symptoms Gastrointestinal: Reports: No Symptoms Musculoskeletal: Reports: No Symptoms Neurological: Reports: No Symptoms Psychiatric: Reports: No Symptoms - Patient Data Vitals - Most Recent: Last Vital Signs Temp 100.8 F H 02/01/21 07:47 Pulse 67 02/01/21 07:47 Resp 24 H 02/01/21 07:47 BP 124/67 02/01/21 09:04 Pulse Ox 95 02/01/21 09:57 Weight - Most Recent: 269 lb 12.8 oz I&O - Last 24 Hours: Intake & Output 01/31/21 02/01/21 02/01/21 22:59 06:59 14:59 Intake Total 1590 300 Output Total 1050 1100 Balance 540 -800 Lab Results Last 24 Hours: Laboratory Results - last 24 hr 01/31/21 01/31/21 02/01/21 Range/Units 13:40 13:40 05:03 WBC 7.50 (4.23-9.07) K/mm3 RBC 3.87 L (4.63-6.08) M/mm3 Hgb 11.8 L (13.7-17.5) gm/dl Hct 36.3 L (40.1-51.0) % MCV 93.8 H (79.0-92.2) fl MCH 30.5 (25.7-32.2) pg MCHC 32.5 (32.2-35.5) g/dl RDW Std Deviation 47.2 H (35.1-43.9) fL Plt Count 90 L (163-337) K/mm3 MPV 12.0 (9.4-12.3) fl Neut % (Auto) 76.4 H (34.0-67.9) % Lymph % (Auto) 11.6 L (21.8-53.1) % Esmeralda % (Auto) 11.6 (5.3-12.2) % Eos % (Auto) 0 L (0.8-7.0) Baso % (Auto) 0.1 (0.1-1.2) % Neut # (Auto) 5.73 H (1.78-5.38) K/mm3 Lymph # (Auto) 0.87 L (1.32-3.57) K/mm3 Esmeralda # (Auto) 0.87 H (0.30-0.82) K/mm3 Eos # (Auto) 0.00 L (0.04-0.54) K/mm3 Baso # (Auto) 0.01 (0.01-0.08) K/mm3 Manual Slide Review Abnormal smear Sodium (136-145) mEq/L Potassium (3.5-5.1) mEq/L Chloride (98-107) mEq/L Carbon Dioxide (21-32) mEq/L Anion Gap (5-15) BUN (7-18) mg/dL Creatinine (0.7-1.3) mg/dL Est Cr Clr Drug Dosing mL/min Estimated GFR (MDRD) (>60) mL/min BUN/Creatinine Ratio (14-18) Glucose (70-99) mg/dL Lactic Acid 1.8 (0.4-2.0) mmol/L Calcium (8.5-10.1) mg/dL Magnesium (1.8-2.4) mg/dL Total Bilirubin (0.2-1.0) mg/dL AST (15-37) U/L ALT (16-63) U/L Alkaline Phosphatase (46-116) U/L Total Protein (6.4-8.2) g/dl Albumin (3.4-5.0) g/dl Globulin gm/dL Albumin/Globulin Ratio (1-2) Procalcitonin 0.23 H ng/mL 02/01/21 02/01/21 Range/Units 05:03 05:03 WBC (4.23-9.07) K/mm3 RBC (4.63-6.08) M/mm3 Hgb (13.7-17.5) gm/dl Hct (40.1-51.0) % MCV (79.0-92.2) fl MCH (25.7-32.2) pg MCHC (32.2-35.5) g/dl RDW Std Deviation (35.1-43.9) fL Plt Count (163-337) K/mm3 MPV (9.4-12.3) fl Neut % (Auto) (34.0-67.9) % Lymph % (Auto) (21.8-53.1) % Esmeralda % (Auto) (5.3-12.2) % Eos % (Auto) (0.8-7.0) Baso % (Auto) (0.1-1.2) % Neut # (Auto) (1.78-5.38) K/mm3 Lymph # (Auto) (1.32-3.57) K/mm3 [place]meralda # (Auto) (0.30-0.82) K/mm3 Eos # (Auto) (0.04-0.54) K/mm3 Baso # (Auto) (0.01-0.08) K/mm3 Manual Slide Review Sodium 135 L (136-145) mEq/L Potassium 3.8 (3.5-5.1) mEq/L Chloride 99 (98-107) mEq/L Carbon Dioxide 27 (21-32) mEq/L Anion Gap 12.8 (5-15) BUN 18 (7-18) mg/dL Creatinine 1.1 (0.7-1.3) mg/dL Est Cr Clr Drug Dosing 73.62 mL/min Estimated GFR (MDRD) > 60 (>60) mL/min BUN/Creatinine Ratio 16.4 (14-18) Glucose 112 H (70-99) mg/dL Lactic Acid (0.4-2.0) mmol/L Calcium 8.8 (8.5-10.1) mg/dL Magnesium 1.9 (1.8-2.4) mg/dL Total Bilirubin 0.5 (0.2-1.0) mg/dL AST 27 (15-37) U/L ALT 17 (16-63) U/L Alkaline Phosphatase 61 (46-116) U/L Total Protein 5.8 L (6.4-8.2) g/dl Albumin 2.6 L (3.4-5.0) g/dl Globulin 3.2 gm/dL Albumin/Globulin Ratio 0.8 L (1-2) Procalcitonin ng/mL Ari Results Last 24 Hours: Microbiology 01/29/21 18:35 Blood Culture - Preliminary Blood - Venous - Lab Draw 01/29/21 17:20 Blood Culture - Preliminary Blood - Venous 01/29/21 14:31 Blood Culture - Preliminary Blood - Venous - Lab Draw 01/29/21 14:25 Blood Culture - Preliminary Blood - Venous Med Orders - Current: Current Medications Acetaminophen (Acetaminophen 325 Mg Tab) 650 mg PO Q6H PRN PRN Reason: Pain (Mild 1-3)/fever Last Admin: 01/31/21 11:48 Dose: 650 mg Documented by: Albuterol/Ipratropium (Albuterol/Ipratropium 3.0-0.5 Mg/3 Ml Neb Soln) 3 ml NEB Q4HRRT PRN PRN Reason: Shortness Of Breath/wheezing Last Admin: 02/01/21 09:57 Dose: 3 ml Documented by: Albuterol/Ipratropium (Albuterol/Ipratropium 3.0-0.5 Mg/3 Ml Neb Soln) 3 ml NEB TIDRT [facility] Last Admin: 02/01/21 06:05 Dose: 3 ml Documented by: Allopurinol (Allopurinol 100 Mg Tab) 100 mg PO DAILY [facility] Last Admin: 02/01/21 09:04 Dose: 100 mg Documented by: Amlodipine Besylate (Amlodipine 10 Mg Tab) 10 mg PO BEDTIME [facility] Last Admin: 01/31/21 20:56 Dose: 10 mg Documented by: Apixaban (Apixaban 5 Mg Tab) 5 mg PO BID [facility] Last Admin: 02/01/21 09:04 Dose: 5 mg Documented by: Aspirin (Aspirin 81 Mg Tab.Ec) 81 mg PO DAILY [facility] Last Admin: 02/01/21 09:04 Dose: 81 mg Documented by: Atorvastatin Calcium (Atorvastatin 20 Mg Tab) 20 mg PO DAILY [facility] Last Admin: 02/01/21 09:05 Dose: 20 mg Documented by: Buspirone HCl (Buspirone 5 Mg Tab) 7.5 mg PO BID [facility] Last Admin: 02/01/21 09:05 Dose: 7.5 mg Documented by: Cholecalciferol (Cholecalciferol (Vitamin D3) 25 Mcg Tab) 50 mcg PO DAILY [facility] Last Admin: 02/01/21 09:04 Dose: 50 mcg Documented by: Citalopram Hydrobromide (Citalopram 20 Mg Tab) 40 mg PO BEDTIME [facility] Last Admin: 01/31/21 20:55 Dose: 40 mg Documented by: Docusate Sodium (Docusate Sodium 100 Mg Cap) 100 mg PO BID PRN PRN Reason: Constipation Doxazosin Mesylate (Doxazosin 2 Mg Tab) 2 mg PO BEDTIME [facility] Last Admin: 01/31/21 20:57 Dose: 2 mg Documented by: Furosemide (Furosemide 100 Mg/10 Ml Sdv) 60 mg IVPUSH BIDDIURETIC [facility] Last Admin: 02/01/21 05:08 Dose: 60 mg Documented by: Guaifenesin (Guaifenesin 600 Mg Tab.Er) 1,200 mg PO BID PRN PRN Reason: Cough Last Admin: 02/01/21 09:22 Dose: 1,200 mg Documented by: Guaifenesin/Dextromethorphan (Guaifenesin/Dextromethorphan 100-10 Mg/5 Ml Soln 5 Ml Cup) 10 ml PO QID PRN PRN Reason: Cough Last Admin: 01/31/21 09:14 Dose: 10 ml Documented by: Hydralazine HCl (Hydralazine 20 Mg/Ml Sdv) 10 mg IVPUSH Q4H PRN PRN Reason: Hypertension Promethazine HCl 12.5 mg/ (Sodium Chloride) 50.5 mls @ 100 mls/hr IV Q6H PRN PRN Reason: Nausea/Vomiting Ceftriaxone Sodium 2 gm/ (Sodium Chloride) 100 mls @ 200 mls/hr IV Q24H [facility] Last Admin: 01/31/21 13:32 Dose: 200 mls/hr Documented by: Azithromycin 500 mg/ Sodium (Chloride) 250 mls @ 250 mls/hr IV Q24H [facility] Last Admin: 01/31/21 16:24 Dose: 250 mls/hr Documented by: Isosorbide Mononitrate (Isosorbide Mononitrate 30 Mg Tab.Er) 30 mg PO DAILY [facility] Last Admin: 02/01/21 09:04 Dose: 30 mg Documented by: Levothyroxine Sodium (Levothyroxine 200 Mcg Tab) 200 mcg PO ACBREAKFAST [facility] Last Admin: 02/01/21 05:07 Dose: 200 mcg Documented by: Lubiprostone (Lubiprostone 24 Mcg Cap) 24 mcg PO BID [facility] Last Admin: 02/01/21 09:09 Dose: 24 mcg Documented by: Mometasone Furoate/Formoterol Fumar (Formoterol/Mometasone 200-5 Mcg 8.8 Gm Inhaler) 2 puff IH BIDRT [facility] Last Admin: 02/01/21 06:06 Dose: 2 puff Documented by: Oxybutynin Chloride (Oxybutynin 5 Mg Tab) 5 mg PO BID [facility] Last Admin: 02/01/21 09:04 Dose: 5 mg Documented by: Oxycodone HCl (Oxycodone 5 Mg Tab) 10 mg PO Q4H PRN PRN Reason: Pain (moderate 4-6) Last Admin: 02/01/21 09:05 Dose: 10 mg Documented by: Pantoprazole Sodium (Pantoprazole 40 Mg Tab.Cr) 40 mg PO BIDAC [facility] Last Admin: 02/01/21 05:07 Dose: 40 mg Documented by: Suvorexant [Belsomra (] 20 Mg Tablet) 0 each PO BEDTIME PRN PRN Reason: Insomnia Potassium Chloride (Potassium Chloride 20 Meq Tab.Er) 20 meq PO DAILY [facility] Last Admin: 02/01/21 09:04 Dose: 20 meq Documented by: Pregabalin (Pregabalin 75 Mg Cap) 150 mg PO TID [facility] Last Admin: 02/01/21 09:06 Dose: 150 mg Documented by: Senna/Docusate Sodium (Docusate Sodium/Sennosides 50-8.6 Mg Tab) 2 tab PO BID PRN PRN Reason: Constipation Sodium Chloride (Sodium Chloride 0.9% 10 Ml Syringe) 10 ml FLUSH ASDIRECTED PRN PRN Reason: Keep Vein Open Last Admin: 01/29/21 14:45 Dose: 10 ml Documented by: Tamsulosin HCl (Tamsulosin 0.4 Mg Cap.Er) 0.4 mg PO BEDTIME [facility] Last Admin: 01/31/21 20:56 Dose: 0.4 mg Documented by: Trazodone HCl (Trazodone 50 Mg Tab) 50 mg PO BEDTIME PRN PRN Reason: insomia Discontinued Medications Albuterol (Albuterol 0.083% 2.5 Mg/3 Ml Neb Soln) 2.5 mg NEB ONETIME ONE Stop: 01/29/21 16:02 Last Admin: 01/29/21 16:26 Dose: 2.5 mg Documented by: Albuterol/Ipratropium (Albuterol/Ipratropium 3.0-0.5 Mg/3 Ml Neb Soln) 3 ml NEB TIDRT [facility] Allopurinol (Allopurinol 100 Mg Tab) 100 mg PO DAILY [facility] Last Admin: 01/30/21 12:11 Dose: Not Given Documented by: Apixaban (Apixaban 5 Mg Tab) 5 mg PO BID [facility] Last Admin: 01/30/21 12:06 Dose: Not Given Documented by: Aspirin (Aspirin 81 Mg Tab.Ec) 81 mg PO DAILY [facility] Last Admin: 01/30/21 12:06 Dose: Not Given Documented by: Atorvastatin Calcium (Atorvastatin 20 Mg Tab) 20 mg PO DAILY [facility] Last Admin: 01/30/21 12:10 Dose: Not Given Documented by: Buspirone HCl (Buspirone 5 Mg Tab) 7.5 mg PO BID [facility] Last Admin: 01/30/21 12:06 Dose: Not Given Documented by: Carvedilol (Carvedilol 3.125 Mg Tab) 3.125 mg PO BIDMEALS [facility] Last Admin: 01/30/21 12:06 Dose: Not Given Documented by: Cholecalciferol (Cholecalciferol (Vitamin D3) 25 Mcg Tab) 50 mcg PO DAILY [facility] Last Admin: 01/30/21 12:10 Dose: Not Given Documented by: Doxazosin Mesylate (Doxazosin 4 Mg Tab) 4 mg PO BEDTIME [facility] Last Admin: 01/30/21 12:05 Dose: Not Given Documented by: Enoxaparin Sodium (Enoxaparin 40 Mg/0.4 Ml Syringe) 40 mg SUBCUT DAILY [facility] Finasteride (Finasteride 5 Mg Tab) 5 mg PO DAILY [facility] Last Admin: 01/30/21 12:10 Dose: Not Given Documented by: Finasteride (Finasteride 5 Mg Tab) 5 mg PO DAILY [facility] Last Admin: 01/31/21 09:11 Dose: 5 mg Documented by: Furosemide (Furosemide 40 Mg/4 Ml Vial) 40 mg IVPUSH BID [facility] Last Admin: 01/30/21 12:09 Dose: Not Given Documented by: Furosemide (Furosemide 40 Mg/4 Ml Vial) 40 mg IVPUSH BID [facility] Last Admin: 01/31/21 09:14 Dose: 40 mg Documented by: Sodium Chloride (Normal Saline) 100 mls @ 60 mls/hr IV ASDIRECTED [facility] Last Admin: 01/29/21 15:50 Dose: 60 mls/hr Documented by: Ceftriaxone Sodium 1 gm/ (Sodium Chloride) 100 mls @ 200 mls/hr IV ONETIME ONE Stop: 01/29/21 16:51 Last Admin: 01/29/21 15:30 Dose: 200 mls/hr Documented by: Ceftriaxone Sodium 2 gm/ (Sodium Chloride) 100 mls @ 200 mls/hr IV Q24H [facility] Azithromycin 500 mg/ Sodium (Chloride) 250 mls @ 250 mls/hr IV Q24H [facility] Sodium Chloride (Normal Saline) 500 mls @ 250 mls/hr IV ONETIME ONE Stop: 01/30/21 00:41 Last Admin: 01/29/21 22:58 Dose: 250 mls/hr Documented by: Sodium Chloride (Normal Saline) Confirm Administered Dose 1,000 mls @ as directed .ROUTE .STK-MED ONE Stop: 01/29/21 22:48 Last Admin: 01/29/21 22:59 Dose: Not Given Documented by: Iopamidol (Iopamidol 755 Mg/Ml 100 Ml Bottle) 100 ml IVPUSH ONETIME ONE Stop: 01/29/21 15:30 Last Admin: 01/29/21 15:47 Dose: 100 ml Documented by: Isosorbide Mononitrate (Isosorbide Mononitrate 60 Mg Tab.Er) 60 mg PO BEDTIME [facility] Last Admin: 01/30/21 20:45 Dose: 60 mg Documented by: Levothyroxine Sodium (Levothyroxine 25 Mcg Tab) 25 mcg PO DAILY [facility] Morphine Sulfate (Morphine 2 Mg/Ml Syringe) 2 mg IVPUSH Q4H PRN PRN Reason: Pain (severe 7-10) Stop: 01/30/21 16:55 Non-Formulary Medication (Naloxone Hcl [Narcan]) 4 mg NS ASDIRECTED PRN PRN Reason: Opioid Overdose Oxycodone HCl (Oxycodone 5 Mg Tab) 5 mg PO Q6H PRN PRN Reason: Pain (moderate 4-6) Last Admin: 01/30/21 10:14 Dose: 5 mg Documented by: Oxycodone HCl (Oxycodone 5 Mg Tab) 10 mg PO TID PRN PRN Reason: Pain (moderate 4-6) Last Admin: 01/31/21 09:13 Dose: 10 mg Documented by: Polyethylene Glycol (Polyethylene Glycol 3350 Powder 17 Gm Packet) gm PO Q72H [facility] Pregabalin (Pregabalin 75 Mg Cap) 150 mg PO TID [facility] Last Admin: 01/30/21 12:10 Dose: Not Given Documented by: Sodium Chloride (Sodium Chloride 0.9% 10 Ml Syringe) 10 ml FLUSH ONETIME PRN PRN Reason: Keep Vein Open Last Admin: 01/29/21 15:47 Dose: 10 ml Documented by: Sodium Phosphate (Phosphorus #1 250 Mg Tab) 250 mg PO QID [facility] Stop: 01/30/21 17:01 Last Admin: 01/30/21 12:10 Dose: Not Given Documented by: Sodium Phosphate (Phosphorus #1 250 Mg Tab) 250 mg PO QID [facility] Stop: 01/30/21 21:01 Last Admin: 01/30/21 20:47 Dose: 250 mg Documented by: Zolpidem Tartrate (Zolpidem 5 Mg Tab) 2.5 mg PO BEDTIME PRN PRN Reason: Insomnia Stop: 02/01/21 21:01 - Exam Quality Assessment: Supplemental Oxygen General: Alert, Oriented HEENT: Pupils Equal, Mucous Membr. Moist/[place] Neck: Supple Lungs: Normal Respiratory Effort, Crackles (Throughout), Wheezing Cardiovascular: Irregular Rhythm GI/Abdominal Exam: Normal Bowel Sounds, Soft, Non-Tender, No Distention Extremities: Normal Inspection, Normal Range of Motion, No Pedal Edema, Pedal Edema Skin: Warm, Dry, Intact Neurological: No New Focal Deficit Psy/Mental Status: Alert, Normal Affect, Normal Mood - Patient Data Lab Results Last 24 hrs: Laboratory Results - last 24 hr 01/31/21 01/31/21 02/01/21 Range/Units 13:40 13:40 05:03 WBC 7.50 (4.23-9.07) K/mm3 RBC 3.87 L (4.63-6.08) M/mm3 Hgb 11.8 L (13.7-17.5) gm/dl Hct 36.3 L (40.1-51.0) % MCV 93.8 H (79.0-92.2) fl MCH 30.5 (25.7-32.2) pg MCHC 32.5 (32.2-35.5) g/dl RDW Std Deviation 47.2 H (35.1-43.9) fL Plt Count 90 L (163-337) K/mm3 MPV 12.0 (9.4-12.3) fl Neut % (Auto) 76.4 H (34.0-67.9) % Lymph % (Auto) 11.6 L (21.8-53.1) % Esmeralda % (Auto) 11.6 (5.3-12.2) % Eos % (Auto) 0 L (0.8-7.0) Baso % (Auto) 0.1 (0.1-1.2) % Neut # (Auto) 5.73 H (1.78-5.38) K/mm3 Lymph # (Auto) 0.87 L (1.32-3.57) K/mm3 Esmeralda # (Auto) 0.87 H (0.30-0.82) K/mm3 Eos # (Auto) 0.00 L (0.04-0.54) K/mm3 Baso # (Auto) 0.01 (0.01-0.08) K/mm3 Manual Slide Review Abnormal smear Sodium (136-145) mEq/L Potassium (3.5-5.1) mEq/L Chloride (98-107) mEq/L Carbon Dioxide (21-32) mEq/L Anion Gap (5-15) BUN (7-18) mg/dL Creatinine (0.7-1.3) mg/dL Est Cr Clr Drug Dosing mL/min Estimated GFR (MDRD) (>60) mL/min BUN/Creatinine Ratio (14-18) Glucose (70-99) mg/dL Lactic Acid 1.8 (0.4-2.0) mmol/L Calcium (8.5-10.1) mg/dL Magnesium (1.8-2.4) mg/dL Total Bilirubin (0.2-1.0) mg/dL AST (15-37) U/L ALT (16-63) U/L Alkaline Phosphatase (46-116) U/L Total Protein (6.4-8.2) g/dl Albumin (3.4-5.0) g/dl Globulin gm/dL Albumin/Globulin Ratio (1-2) Procalcitonin 0.23 H ng/mL 02/01/21 02/01/21 Range/Units 05:03 05:03 WBC (4.23-9.07) K/mm3 RBC (4.63-6.08) M/mm3 Hgb (13.7-17.5) gm/dl Hct (40.1-51.0) % MCV (79.0-92.2) fl MCH (25.7-32.2) pg MCHC (32.2-35.5) g/dl RDW Std Deviation (35.1-43.9) fL Plt Count (163-337) K/mm3 MPV (9.4-12.3) fl Neut % (Auto) (34.0-67.9) % Lymph % (Auto) (21.8-53.1) % Esmeralda % (Auto) (5.3-12.2) % Eos % (Auto) (0.8-7.0) Baso % (Auto) (0.1-1.2) % Neut # (Auto) (1.78-5.38) K/mm3 Lymph # (Auto) (1.32-3.57) K/mm3 Esmeralda # (Auto) (0.30-0.82) K/mm3 Eos # (Auto) (0.04-0.54) K/mm3 Baso # (Auto) (0.01-0.08) K/mm3 Manual Slide Review Sodium 135 L (136-145) mEq/L Potassium 3.8 (3.5-5.1) mEq/L Chloride 99 (98-107) mEq/L Carbon Dioxide 27 (21-32) mEq/L Anion Gap 12.8 (5-15) BUN 18 (7-18) mg/dL Creatinine 1.1 (0.7-1.3) mg/dL Est Cr Clr Drug Dosing 73.62 mL/min Estimated GFR (MDRD) > 60 (>60) mL/min BUN/Creatinine Ratio 16.4 (14-18) Glucose 112 H (70-99) mg/dL Lactic Acid (0.4-2.0) mmol/L Calcium 8.8 (8.5-10.1) mg/dL Magnesium 1.9 (1.8-2.4) mg/dL Total Bilirubin 0.5 (0.2-1.0) mg/dL AST 27 (15-37) U/L ALT 17 (16-63) U/L Alkaline Phosphatase 61 (46-116) U/L Total Protein 5.8 L (6.4-8.2) g/dl Albumin 2.6 L (3.4-5.0) g/dl Globulin 3.2 gm/dL Albumin/Globulin Ratio 0.8 L (1-2) Procalcitonin ng/mL Result Diagrams: 02/01/21 05:03 02/01/21 05:03 Ari Results Last 24 hrs: Microbiology 01/29/21 18:35 Blood Culture - Preliminary Blood - Venous - Lab Draw 01/29/21 17:20 Blood Culture - Preliminary Blood - Venous 01/29/21 14:31 Blood Culture - Preliminary Blood - Venous - Lab Draw 01/29/21 14:25 Blood Culture - Preliminary Blood - Venous Sepsis Event Note - Evaluation Sepsis Screening Result: No Definite Risk - Focused Exam Vital Signs: Vital Signs Temp Pulse Resp BP Pulse Ox Pulse Ox 02/01/21 09:57 95 02/01/21 09:04 124/67 02/01/21 07:47 100.8 F H 67 24 H 124/67 91 L 02/01/21 06:07 95 02/01/21 04:07 99.3 F 63 24 H 143/75 H 96 01/31/21 23:49 97.9 F 65 18 124/52 L 97 - Problem List & Annotations (1) RSV (respiratory syncytial virus infection) SNOMED Code(s): 22449819 Code(s): B97.4 - RESPIRATORY SYNCYTIAL VIRUS CAUSING DISEASES CLASSD [id number] Status: Acute Current Visit: Yes (2) COPD exacerbation SNOMED Code(s): 085274603 Code(s): J44.1 - CHRONIC OBSTRUCTIVE PULMONARY DISEASE W (ACUTE) EXACERBATION Status: Acute Current Visit: Yes (3) Congestive heart failure SNOMED Code(s): 00326605 Code(s): I50.9 - HEART FAILURE, UNSPECIFIED Status: Chronic Priority: High Current Visit: Yes Qualifiers: Qualified Code(s): I50.33 - Acute on chronic diastolic (congestive) heart failure - Problem List Review Problem List Initiated/Reviewed/Updated: Yes - My Orders Last 24 Hours: My Active Orders 01/31/21 10:47 oxyCODONE 10 mg PO Q4H PRN 01/31/21 10:57 Incentive Spirometry [RT Incentive Spirometry] [RC] ASDIRECTED 01/31/21 12:56 Blood Culture x2 Reflex Set [OM.PC] Stat 01/31/21 13:30 cefTRIAXone [Rocephin] 2 gm Sodium Chloride 0.9% [Normal Saline AdvBag] 100 ml IV Q24H 01/31/21 13:40 BLOOD CULTURE [MREF] Stat 01/31/21 13:52 BLOOD CULTURE [MREF] Stat 01/31/21 14:00 Azithromycin [Zithromax] 500 mg Sodium Chloride 0.9% [Normal Saline AdvBag] 250 ml IV Q24H Furosemide [Lasix] 60 mg IVPUSH BIDDIURETIC 02/01/21 09:00 Isosorbide Mononitrate [Imdur] 30 mg PO DAILY 02/02/21 05:11 MAGNESIUM [CHEM] AM - Plan Plan:: Patient is a 70-year-old male with a history of hypertension, COPD, CHF, atrial fibrillation, and chronic back pain who presented to the ER due to worsening shortness of breath. Assessment and plan: Acute hypoxic respiratory failure Etiology could be due to RSV infection induced, CHF exacerbation and COPD Based on chest x-ray, white count, procalcitonin, and being afebrile hypoxemia likely secondary to RSV and CHF. In the ER, he had a SpO2 89% with 6L CTA chest - NO PE; small parenchymal densities within both lower lungs as well as left upper lung Pulse ox Has decreased from high flow nasal cannula 40L to 5 L this morning. CHF, unknown type BNP 1924 on admission CXR - cardiomegaly with mild pulmonary vascular congestion. Troponin < 0.017 x [address] elevation Echocardiogram lasix 80mg po bid is on hold Increased lasix to 60mg iv bid. Intake and output Follow electrolytes Echocardiogram showed a normal left ejection fraction of 55 to 60%. No mention of diastolic dysfunction. The right ventricle systolic pressure was normal at 32.4 mmHg. Technically difficult study. Suspect normal LV systolic function. Minimal valvular disease. Pneumonia T-max yesterday was 103, with temperature of 100.8 this morning CXR on 01/31/2021 showed mild increasing central lung markings possibly due to mild pulmonary vascular congestion. Increasing density within the left upper chest from prior study which may represent an area of pneumonia versus asymmetric pulmonary vascular congestion. WBC 5.21 -> 6.56->7.5 Procalcitonin increased from less than 0.05 to 0.23 influenza A and B negative RSV positive Covid 19 negative. He has been fully vaccinated against covid 19 His fever could result from RSV infection or secondary bacterial pneumonia Rocephin and azithromycin started yesterday Droplet isolation COPD Stable Continue inhalers Atrial fib Heart rate is controlled nebivolol 2.5mg daily Continue Eliquis 5mg bid patient does have thrombocytopenia with platelet count of 90,000. Will follow closely for bleeding. Chronic back pain Home medications include trazodone 50 mg at bedtime and oxycodone/acetaminophen 10-325 mg every 4 hours as needed. I will change it to oxycodone 10 mg oral 6 times daily as needed, trazodone 50 mg at bedtime and Ambien 2.5 mg at bedtime. 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 HTN Continue amlodipine 10mg daily, imdur 60mg daily, nebivolol 2.5mg daily Hydralazine as needed Thrombocytopenia, chronic 101->89-> 87->90 platelets 151 on 07/12/2019 No evidence of bleeding. Will continue his Eliquis but closely monitor. I will hold Eliquis if platelets continue to decrease or bleeding occurs. Repeat CBC in morning Elevation of D-dimer, 0.98 CTA chest - no PE. Patient has been on Eliquis. I would not like to do more work-up Continue Eliquis Hx of dysphagia Speech pathology consultno dysphagia. On mechanical soft because he does not have his dentures. Pulmonary nodule Repeat CT chest in 6 months DVT prophylaxis: Eliquis CODE STATUS: Full Prognosis: Good
[2021-02-01] MEDS: cefTRIAXone 2 GM in Sodium Chloride 0.9% 100 ML IV SCH (12:54)
[2021-02-01] MEDS: Azithromycin 500 MG in Sodium Chloride 0.9% 250 ML IV SCH (13:53)
[2021-02-01] MEDS: Doxazosin 2 MG Tab PO SCH (20:59)
[2021-02-01] MEDS: Citalopram 20 MG Tab PO SCH (20:59)
[2021-02-01] MEDS: Tamsulosin 0.4 MG Cap.ER PO SCH (21:00)
[2021-02-01] MEDS: guaiFENesin 600 MG Tab.ER PO SCH (21:01)
[2021-02-01] MEDS: amLODIPine 10 MG Tab PO SCH (21:02)
[2021-02-01] MEDS: traZODone 50 MG Tab PO PRN (21:03)
[2021-02-02] MEDS: oxyCODONE 5 MG Tab PO PRN ×4 (04:53→20:51)
[2021-02-02] MEDS: Formoterol/Mometasone 200-5 MCG 8.8 GM Inhaler IH SCH ×2 (06:06→21:23)
[2021-02-02] MEDS: Albuterol/Ipratropium 3.0-0.5 MG/3 ML Neb Soln NEB SCH ×3 (06:06→21:23)
[2021-02-02] MEDS: Furosemide 100 MG/10 ML SDV IVPUSH SCH ×2 (06:37→13:46)
[2021-02-02] MEDS: Pantoprazole 40 MG Tab.CR PO SCH ×2 (06:37→15:38)
[2021-02-02] MEDS: Cholecalciferol (Vitamin D3) 25 MCG Tab PO SCH (08:22)
[2021-02-02] MEDS: Isosorbide Mononitrate 30 MG Tab.ER PO SCH (08:22)
[2021-02-02] MEDS: Pregabalin 75 MG Cap PO SCH ×3 (08:24→20:48)
[2021-02-02] MEDS: Apixaban 5 MG Tab PO SCH ×2 (08:25→20:50)
[2021-02-02] MEDS: atorvaSTATin 20 MG Tab PO SCH (08:25)
[2021-02-02] MEDS: Oxybutynin 5 MG Tab PO SCH ×2 (08:25→20:47)
[2021-02-02] MEDS: busPIRone 5 MG Tab PO SCH ×2 (08:26→20:48)
[2021-02-02] MEDS: guaiFENesin 600 MG Tab.ER PO SCH ×2 (08:27→20:49)
[2021-02-02] MEDS: Aspirin 81 MG Tab.EC PO SCH (08:27)
[2021-02-02] MEDS: Allopurinol 100 MG Tab PO SCH (08:28)
[2021-02-02] MEDS: Potassium Chloride 20 MEQ Tab.ER PO SCH ×3 (08:28→20:47)
[2021-02-02] MEDS: Lubiprostone 24 MCG Cap PO SCH ×2 (08:29→21:08)
[2021-02-02] MEDS: guaiFENesin/Dextromethorphan 100-10 MG/5 ML Soln 5 ML Cup PO PRN (08:44)
--- NOTE | 2021-02-02 09:42 | PCM.PN ---
- General Info Date of Service: 02/02/21 Admission Dx/Problem (Free Text): Admission Diagnosis/Problem Admission Diagnosis/Problem Respiratory failure with hypoxia and hypercapnia Subjective Update: Chace states that he started feeling better this morning. He was able to produce some thick sputum and his oxygen saturations have certainly improved. He is now on 4 L nasal cannula which is close to his baseline of 3-3-1/2. Functional Status: Reports: Pain Controlled - Review of Systems General: Reports: No Symptoms HEENT: Reports: No Symptoms Pulmonary: Reports: Cough, Wheezing Cardiovascular: Reports: No Symptoms Musculoskeletal: Reports: No Symptoms Neurological: Reports: No Symptoms Psychiatric: Reports: No Symptoms - Patient Data Vitals - Most Recent: Last Vital Signs Temp 98.2 F 02/02/21 04:56 Pulse 81 02/02/21 04:56 Resp 18 02/02/21 04:56 BP 124/75 02/02/21 08:22 Pulse Ox 93 L 02/02/21 09:01 Weight - Most Recent: 268 lb 1.6 oz I&O - Last 24 Hours: Intake & Output 02/01/21 02/02/21 02/02/21 22:59 06:59 14:59 Intake Total 1300 300 Output Total 1250 1200 Balance 50 -900 Lab Results Last 24 Hours: Laboratory Results - last 24 hr 02/02/21 02/02/21 02/02/21 Range/Units 08:17 08:17 08:17 WBC 6.63 (4.23-9.07) K/mm3 RBC 3.82 L (4.63-6.08) M/mm3 Hgb 11.5 L (13.7-17.5) gm/dl Hct 35.6 L (40.1-51.0) % MCV 93.2 H (79.0-92.2) fl MCH 30.1 (25.7-32.2) pg MCHC 32.3 (32.2-35.5) g/dl RDW Std Deviation 46.1 H (35.1-43.9) fL Plt Count 97 L (163-337) K/mm3 MPV 11.1 (9.4-12.3) fl Neut % (Auto) 72.5 H (34.0-67.9) % Lymph % (Auto) 14.6 L (21.8-53.1) % [place] % (Auto) 11.5 (5.3-12.2) % Eos % (Auto) 0.8 (0.8-7.0) Baso % (Auto) 0.3 (0.1-1.2) % Neut # (Auto) 4.81 (1.78-5.38) K/mm3 Lymph # (Auto) 0.97 L (1.32-3.57) K/mm3 [place] # (Auto) 0.76 (0.30-0.82) K/mm3 Eos # (Auto) 0.05 (0.04-0.54) K/mm3 Baso # (Auto) 0.02 (0.01-0.08) K/mm3 Manual Slide Review Abnormal smear Sodium 137 (136-145) mEq/L Potassium 3.1 L (3.5-5.1) mEq/L Chloride 100 (98-107) mEq/L Carbon Dioxide 28 (21-32) mEq/L Anion Gap 12.1 (5-15) BUN 16 (7-18) mg/dL Creatinine 1.1 (0.7-1.3) mg/dL Est Cr Clr Drug Dosing 73.62 mL/min Estimated GFR (MDRD) > 60 (>60) mL/min BUN/Creatinine Ratio 14.5 (14-18) Glucose 99 (70-99) mg/dL Calcium 9.3 (8.5-10.1) mg/dL Magnesium 2.0 (1.8-2.4) mg/dL Total Bilirubin 0.6 (0.2-1.0) mg/dL AST 45 H (15-37) U/L ALT 23 (16-63) U/L Alkaline Phosphatase 62 (46-116) U/L Total Protein 6.7 (6.4-8.2) g/dl Albumin 2.5 L (3.4-5.0) g/dl Globulin 4.2 gm/dL Albumin/Globulin Ratio 0.6 L (1-2) Ari Results Last 24 Hours: Microbiology 01/31/21 13:52 Blood Culture - Preliminary Blood - Venous - Lab Draw 01/31/21 13:40 Blood Culture - Preliminary Blood - Venous Med Orders - Current: Current Medications Acetaminophen (Acetaminophen 325 Mg Tab) 650 mg PO Q6H PRN PRN Reason: Pain (Mild 1-3)/fever Last Admin: 01/31/21 11:48 Dose: 650 mg Documented by: Albuterol/Ipratropium (Albuterol/Ipratropium 3.0-0.5 Mg/3 Ml Neb Soln) 3 ml NEB Q4HRRT PRN PRN Reason: Shortness Of Breath/wheezing Last Admin: 02/01/21 09:57 Dose: 3 ml Documented by: Albuterol/Ipratropium (Albuterol/Ipratropium 3.0-0.5 Mg/3 Ml Neb Soln) 3 ml NEB TIDRT [facility] Last Admin: 02/02/21 06:06 Dose: 3 ml Documented by: Allopurinol (Allopurinol 100 Mg Tab) 100 mg PO DAILY [facility] Last Admin: 02/02/21 08:28 Dose: 100 mg Documented by: Amlodipine Besylate (Amlodipine 10 Mg Tab) 10 mg PO BEDTIME [facility] Last Admin: 02/01/21 21:02 Dose: 10 mg Documented by: Apixaban (Apixaban 5 Mg Tab) 5 mg PO BID [facility] Last Admin: 02/02/21 08:25 Dose: 5 mg Documented by: Aspirin (Aspirin 81 Mg Tab.Ec) 81 mg PO DAILY [facility] Last Admin: 02/02/21 08:27 Dose: 81 mg Documented by: Atorvastatin Calcium (Atorvastatin 20 Mg Tab) 20 mg PO DAILY [facility] Last Admin: 02/02/21 08:25 Dose: 20 mg Documented by: Buspirone HCl (Buspirone 5 Mg Tab) 7.5 mg PO BID [facility] Last Admin: 02/02/21 08:26 Dose: 7.5 mg Documented by: Cholecalciferol (Cholecalciferol (Vitamin D3) 25 Mcg Tab) 50 mcg PO DAILY [facility] Last Admin: 02/02/21 08:22 Dose: 50 mcg Documented by: Citalopram Hydrobromide (Citalopram 20 Mg Tab) 40 mg PO BEDTIME [facility] Last Admin: 02/01/21 20:59 Dose: 40 mg Documented by: Docusate Sodium (Docusate Sodium 100 Mg Cap) 100 mg PO BID PRN PRN Reason: Constipation Doxazosin Mesylate (Doxazosin 2 Mg Tab) 2 mg PO BEDTIME [facility] Last Admin: 02/01/21 20:59 Dose: 2 mg Documented by: Furosemide (Furosemide 100 Mg/10 Ml Sdv) 60 mg IVPUSH BIDDIURETIC [facility] Last Admin: 02/02/21 06:37 Dose: 60 mg Documented by: Guaifenesin (Guaifenesin 600 Mg Tab.Er) 1,200 mg PO BID [facility] Last Admin: 02/02/21 08:27 Dose: 1,200 mg Documented by: Guaifenesin/Dextromethorphan (Guaifenesin/Dextromethorphan 100-10 Mg/5 Ml Soln 5 Ml Cup) 10 ml PO QID PRN PRN Reason: Cough Last Admin: 02/02/21 08:44 Dose: 10 ml Documented by: Hydralazine HCl (Hydralazine 20 Mg/Ml Sdv) 10 mg IVPUSH Q4H PRN PRN Reason: Hypertension Promethazine HCl 12.5 mg/ (Sodium Chloride) 50.5 mls @ 100 mls/hr IV Q6H PRN PRN Reason: Nausea/Vomiting Ceftriaxone Sodium 2 gm/ (Sodium Chloride) 100 mls @ 200 mls/hr IV Q24H [facility] Last Admin: 02/01/21 12:54 Dose: 200 mls/hr Documented by: Azithromycin 500 mg/ Sodium (Chloride) 250 mls @ 250 mls/hr IV Q24H [facility] Last Admin: 02/01/21 13:53 Dose: 250 mls/hr Documented by: Isosorbide Mononitrate (Isosorbide Mononitrate 30 Mg Tab.Er) 30 mg PO DAILY [facility] Last Admin: 02/02/21 08:22 Dose: 30 mg Documented by: Levothyroxine Sodium (Levothyroxine 200 Mcg Tab) 200 mcg PO ACBREAKFAST [facility] Last Admin: 02/02/21 06:37 Dose: 200 mcg Documented by: Lubiprostone (Lubiprostone 24 Mcg Cap) 24 mcg PO BID [facility] Last Admin: 02/02/21 08:29 Dose: Not Given Documented by: Mometasone Furoate/Formoterol Fumar (Formoterol/Mometasone 200-5 Mcg 8.8 Gm Inhaler) 2 puff IH BIDRT [facility] Last Admin: 02/02/21 06:06 Dose: 2 puff Documented by: Oxybutynin Chloride (Oxybutynin 5 Mg Tab) 5 mg PO BID [facility] Last Admin: 02/02/21 08:25 Dose: 5 mg Documented by: Oxycodone HCl (Oxycodone 5 Mg Tab) 10 mg PO Q4H PRN PRN Reason: Pain (moderate 4-6) Last Admin: 02/02/21 08:50 Dose: 10 mg Documented by: Pantoprazole Sodium (Pantoprazole 40 Mg Tab.Cr) 40 mg PO BIDAC [facility] Last Admin: 02/02/21 06:37 Dose: 40 mg Documented by: Suvorexant [Belsomra (] 20 Mg Tablet) 0 each PO BEDTIME PRN PRN Reason: Insomnia Potassium Chloride (Potassium Chloride 20 Meq Tab.Er) 20 meq PO DAILY [facility] Last Admin: 02/02/21 08:28 Dose: 20 meq Documented by: Pregabalin (Pregabalin 75 Mg Cap) 150 mg PO TID [facility] Last Admin: 02/02/21 08:24 Dose: 150 mg Documented by: Senna/Docusate Sodium (Docusate Sodium/Sennosides 50-8.6 Mg Tab) 2 tab PO BID PRN PRN Reason: Constipation Sodium Chloride (Sodium Chloride 0.9% 10 Ml Syringe) 10 ml FLUSH ASDIRECTED PRN PRN Reason: Keep Vein Open Last Admin: 01/29/21 14:45 Dose: 10 ml Documented by: Tamsulosin HCl (Tamsulosin 0.4 Mg Cap.Er) 0.4 mg PO BEDTIME [facility] Last Admin: 02/01/21 21:00 Dose: 0.4 mg Documented by: Trazodone HCl (Trazodone 50 Mg Tab) 50 mg PO BEDTIME PRN PRN Reason: insomia Last Admin: 02/01/21 21:03 Dose: 50 mg Documented by: Discontinued Medications Albuterol (Albuterol 0.083% 2.5 Mg/3 Ml Neb Soln) 2.5 mg NEB ONETIME ONE Stop: 01/29/21 16:02 Last Admin: 01/29/21 16:26 Dose: 2.5 mg Documented by: Albuterol/Ipratropium (Albuterol/Ipratropium 3.0-0.5 Mg/3 Ml Neb Soln) 3 ml NEB TIDRT [facility] Allopurinol (Allopurinol 100 Mg Tab) 100 mg PO DAILY [facility] Last Admin: 01/30/21 12:11 Dose: Not Given Documented by: Apixaban (Apixaban 5 Mg Tab) 5 mg PO BID [facility] Last Admin: 01/30/21 12:06 Dose: Not Given Documented by: Aspirin (Aspirin 81 Mg Tab.Ec) 81 mg PO DAILY [facility] Last Admin: 01/30/21 12:06 Dose: Not Given Documented by: Atorvastatin Calcium (Atorvastatin 20 Mg Tab) 20 mg PO DAILY [facility] Last Admin: 01/30/21 12:10 Dose: Not Given Documented by: Buspirone HCl (Buspirone 5 Mg Tab) 7.5 mg PO BID [facility] Last Admin: 01/30/21 12:06 Dose: Not Given Documented by: Carvedilol (Carvedilol 3.125 Mg Tab) 3.125 mg PO BIDMEALS [facility] Last Admin: 01/30/21 12:06 Dose: Not Given Documented by: Cholecalciferol (Cholecalciferol (Vitamin D3) 25 Mcg Tab) 50 mcg PO DAILY [facility] Last Admin: 01/30/21 12:10 Dose: Not Given Documented by: Doxazosin Mesylate (Doxazosin 4 Mg Tab) 4 mg PO BEDTIME [facility] Last Admin: 01/30/21 12:05 Dose: Not Given Documented by: Enoxaparin Sodium (Enoxaparin 40 Mg/0.4 Ml Syringe) 40 mg SUBCUT DAILY [facility] Finasteride (Finasteride 5 Mg Tab) 5 mg PO DAILY [facility] Last Admin: 01/30/21 12:10 Dose: Not Given Documented by: Finasteride (Finasteride 5 Mg Tab) 5 mg PO DAILY [facility] Last Admin: 01/31/21 09:11 Dose: 5 mg Documented by: Furosemide (Furosemide 40 Mg/4 Ml Vial) 40 mg IVPUSH BID [facility] Last Admin: 01/30/21 12:09 Dose: Not Given Documented by: Furosemide (Furosemide 40 Mg/4 Ml Vial) 40 mg IVPUSH BID [facility] Last Admin: 01/31/21 09:14 Dose: 40 mg Documented by: Guaifenesin (Guaifenesin 600 Mg Tab.Er) 1,200 mg PO BID PRN PRN Reason: Cough Last Admin: 02/01/21 09:22 Dose: 1,200 mg Documented by: Sodium Chloride (Normal Saline) 100 mls @ 60 mls/hr IV ASDIRECTED [facility] Last Admin: 01/29/21 15:50 Dose: 60 mls/hr Documented by: Ceftriaxone Sodium 1 gm/ (Sodium Chloride) 100 mls @ 200 mls/hr IV ONETIME ONE Stop: 01/29/21 16:51 Last Admin: 01/29/21 15:30 Dose: 200 mls/hr Documented by: Ceftriaxone Sodium 2 gm/ (Sodium Chloride) 100 mls @ 200 mls/hr IV Q24H [facility] Azithromycin 500 mg/ Sodium (Chloride) 250 mls @ 250 mls/hr IV Q24H [facility] Sodium Chloride (Normal Saline) 500 mls @ 250 mls/hr IV ONETIME ONE Stop: 01/30/21 00:41 Last Admin: 01/29/21 22:58 Dose: 250 mls/hr Documented by: Sodium Chloride (Normal Saline) Confirm Administered Dose 1,000 mls @ as directed .ROUTE .STK-MED ONE Stop: 01/29/21 22:48 Last Admin: 01/29/21 22:59 Dose: Not Given Documented by: Iopamidol (Iopamidol 755 Mg/Ml 100 Ml Bottle) 100 ml IVPUSH ONETIME ONE Stop: 01/29/21 15:30 Last Admin: 01/29/21 15:47 Dose: 100 ml Documented by: Isosorbide Mononitrate (Isosorbide Mononitrate 60 Mg Tab.Er) 60 mg PO BEDTIME [facility] Last Admin: 01/30/21 20:45 Dose: 60 mg Documented by: Levothyroxine Sodium (Levothyroxine 25 Mcg Tab) 25 mcg PO DAILY [facility] Morphine Sulfate (Morphine 2 Mg/Ml Syringe) 2 mg IVPUSH Q4H PRN PRN Reason: Pain (severe 7-10) Stop: 01/30/21 16:55 Non-Formulary Medication (Naloxone Hcl [Narcan]) 4 mg NS ASDIRECTED PRN PRN Reason: Opioid Overdose Oxycodone HCl (Oxycodone 5 Mg Tab) 5 mg PO Q6H PRN PRN Reason: Pain (moderate 4-6) Last Admin: 01/30/21 10:14 Dose: 5 mg Documented by: Oxycodone HCl (Oxycodone 5 Mg Tab) 10 mg PO TID PRN PRN Reason: Pain (moderate 4-6) Last Admin: 01/31/21 09:13 Dose: 10 mg Documented by: Polyethylene Glycol (Polyethylene Glycol 3350 Powder 17 Gm Packet) gm PO Q72H [facility] Pregabalin (Pregabalin 75 Mg Cap) 150 mg PO TID [facility] Last Admin: 01/30/21 12:10 Dose: Not Given Documented by: Sodium Chloride (Sodium Chloride 0.9% 10 Ml Syringe) 10 ml FLUSH ONETIME PRN PRN Reason: Keep Vein Open Last Admin: 01/29/21 15:47 Dose: 10 ml Documented by: Sodium Phosphate (Phosphorus #1 250 Mg Tab) 250 mg PO QID [facility] Stop: 01/30/21 17:01 Last Admin: 01/30/21 12:10 Dose: Not Given Documented by: Sodium Phosphate (Phosphorus #1 250 Mg Tab) 250 mg PO QID [facility] Stop: 01/30/21 21:01 Last Admin: 01/30/21 20:47 Dose: 250 mg Documented by: Zolpidem Tartrate (Zolpidem 5 Mg Tab) 2.5 mg PO BEDTIME PRN PRN Reason: Insomnia Stop: 02/01/21 21:01 - Exam Quality Assessment: Supplemental Oxygen General: Alert, Oriented HEENT: Pupils Equal, Mucous Membr. Moist/[place] Neck: Supple Lungs: Normal Respiratory Effort, Crackles, Wheezing Cardiovascular: Irregular Rhythm (Rate and rhythm) GI/Abdominal Exam: Normal Bowel Sounds, Soft, Non-Tender, No Distention Extremities: Pedal Edema Skin: Warm, Dry, Intact Psy/Mental Status: Alert, Normal Affect, Normal Mood - Patient Data Lab Results Last 24 hrs: Laboratory Results - last 24 hr 02/02/21 02/02/21 02/02/21 Range/Units 08:17 08:17 08:17 WBC 6.63 (4.23-9.07) K/mm3 RBC 3.82 L (4.63-6.08) M/mm3 Hgb 11.5 L (13.7-17.5) gm/dl Hct 35.6 L (40.1-51.0) % MCV 93.2 H (79.0-92.2) fl MCH 30.1 (25.7-32.2) pg MCHC 32.3 (32.2-35.5) g/dl RDW Std Deviation 46.1 H (35.1-43.9) fL Plt Count 97 L (163-337) K/mm3 MPV 11.1 (9.4-12.3) fl Neut % (Auto) 72.5 H (34.0-67.9) % Lymph % (Auto) 14.6 L (21.8-53.1) % [place] % (Auto) 11.5 (5.3-12.2) % Eos % (Auto) 0.8 (0.8-7.0) Baso % (Auto) 0.3 (0.1-1.2) % Neut # (Auto) 4.81 (1.78-5.38) K/mm3 Lymph # (Auto) 0.97 L (1.32-3.57) K/mm3 [place] # (Auto) 0.76 (0.30-0.82) K/mm3 Eos # (Auto) 0.05 (0.04-0.54) K/mm3 Baso # (Auto) 0.02 (0.01-0.08) K/mm3 Manual Slide Review Abnormal smear Sodium 137 (136-145) mEq/L Potassium 3.1 L (3.5-5.1) mEq/L Chloride 100 (98-107) mEq/L Carbon Dioxide 28 (21-32) mEq/L Anion Gap 12.1 (5-15) BUN 16 (7-18) mg/dL Creatinine 1.1 (0.7-1.3) mg/dL Est Cr Clr Drug Dosing 73.62 mL/min Estimated GFR (MDRD) > 60 (>60) mL/min BUN/Creatinine Ratio 14.5 (14-18) Glucose 99 (70-99) mg/dL Calcium 9.3 (8.5-10.1) mg/dL Magnesium 2.0 (1.8-2.4) mg/dL Total Bilirubin 0.6 (0.2-1.0) mg/dL AST 45 H (15-37) U/L ALT 23 (16-63) U/L Alkaline Phosphatase 62 (46-116) U/L Total Protein 6.7 (6.4-8.2) g/dl Albumin 2.5 L (3.4-5.0) g/dl Globulin 4.2 gm/dL Albumin/Globulin Ratio 0.6 L (1-2) Result Diagrams: 02/02/21 08:17 02/02/21 08:17 Ari Results Last 24 hrs: Microbiology 01/31/21 13:52 Blood Culture - Preliminary Blood - Venous - Lab Draw 01/31/21 13:40 Blood Culture - Preliminary Blood - Venous Sepsis Event Note - Evaluation Sepsis Screening Result: No Definite Risk - Focused Exam Vital Signs: Vital Signs Temp Pulse Resp BP Pulse Ox Pulse Ox 02/02/21 09:01 93 L 02/02/21 08:22 124/75 02/02/21 06:11 93 L 02/02/21 04:56 98.2 F 81 18 103/59 L 94 L 02/02/21 00:00 94 L - Problem List & Annotations (1) RSV (respiratory syncytial virus infection) SNOMED Code(s): 87604948 Code(s): B97.4 - RESPIRATORY SYNCYTIAL VIRUS CAUSING DISEASES CLASSD [id number] Status: Acute Current Visit: Yes (2) COPD exacerbation SNOMED Code(s): 294715265 Code(s): J44.1 - CHRONIC OBSTRUCTIVE PULMONARY DISEASE W (ACUTE) EXACERBATION Status: Acute Current Visit: Yes (3) Congestive heart failure SNOMED Code(s): 91557934 Code(s): I50.9 - HEART FAILURE, UNSPECIFIED Status: Chronic Priority: High Current Visit: Yes - Problem List Review Problem List Initiated/Reviewed/Updated: Yes - My Orders Last 24 Hours: My Active Orders 02/01/21 09:00 Isosorbide Mononitrate [Imdur] 30 mg PO DAILY 02/01/21 21:00 guaiFENesin [Mucinex] 1,200 mg PO BID 02/02/21 Dinner Fluid Restriction [DIET] - Plan Plan:: Patient is a 70-year-old male with a history of hypertension, COPD, CHF, atrial fibrillation, and chronic back pain who presented to the ER due to worsening shortness of breath. Assessment and plan: Acute hypoxic respiratory failure Etiology could be due to RSV infection induced, CHF exacerbation, pneumonia, and COPD Repeat chest x-ray on the showed increasing density within the left upper chest from prior study which may represent an area of pneumonia. Patient has had improvement in his fevers since starting antibiotics. Last high temperature was 100.8 yesterday morning at 0800 hrs. In the ER, he had a SpO2 89% with 6L CTA chest - NO PE; small parenchymal densities within both lower lungs as well as left upper lung Pulse ox Has decreased from high flow nasal cannula 40L to 4 L this morning. CHF, preserved ejection fraction BNP 1924 on admission CXR - cardiomegaly with mild pulmonary vascular congestion. Troponin < 0.017 x [address] elevation lasix 80mg po bid is on hold Increased lasix to 60mg iv bid. Intake and output Follow electrolytes Echocardiogram showed a normal left ejection fraction of 55 to 60%. No mention of diastolic dysfunction. The right ventricle systolic pressure was normal at 32.4 mmHg. Technically difficult study. Suspect normal LV systolic function. Minimal valvular disease. Potassium was low at 3.1 today and will be supplemented with potassium 40 mEq p.o. twice daily x2 doses. Pneumonia T-max yesterday was 100.8 CXR on 01/31/2021 showed mild increasing central lung markings possibly due to mild pulmonary vascular congestion. Increasing density within the left upper chest from prior study which may represent an area of pneumonia versus asymmetric pulmonary vascular congestion. Normal white count Procalcitonin increased from less than 0.05 to 0.23 influenza A and B negative RSV positive Covid 19 negative. He has been fully vaccinated against covid 19 His fever could result from RSV infection or secondary bacterial pneumonia Rocephin and azithromycin started yesterday Droplet isolation COPD Stable Continue inhalers Atrial fib Heart rate is controlled nebivolol 2.5mg daily Continue Eliquis 5mg bid patient does have thrombocytopenia with platelet count of 90,000. Will follow closely for bleeding. Chronic back pain Home medications include trazodone 50 mg at bedtime and oxycodone/acetaminophen 10-325 mg every 4 hours as needed. I will change it to oxycodone 10 mg oral 6 t imes daily as needed, trazodone 50 mg at bedtime and Ambien 2.5 mg at bedtime. 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 HTN Continue amlodipine 10mg daily, imdur 60mg daily, nebivolol 2.5mg daily Hydralazine as needed Thrombocytopenia, chronic 101->89-> 87->90 platelets 151 on 07/12/2019 No evidence of bleeding. Will continue his Eliquis but closely monitor. I will hold Eliquis if platelets continue to decrease or bleeding occurs. Repeat CBC in morning Elevation of D-dimer, 0.98 CTA chest - no PE. Patient has been on Eliquis. I would not like to do more work-up Continue Eliquis Hx of dysphagia Speech pathology consultno dysphagia. On mechanical soft because he does not have his dentures. Pulmonary nodule Repeat CT chest in 6 months DVT prophylaxis: Eliquis CODE STATUS: Full Prognosis: Good
[2021-02-02] MEDS: cefTRIAXone 2 GM in Sodium Chloride 0.9% 100 ML IV SCH (12:54)
[2021-02-02] MEDS: Azithromycin 500 MG in Sodium Chloride 0.9% 250 ML IV SCH (13:46)
[2021-02-02] MEDS: Albuterol/Ipratropium 3.0-0.5 MG/3 ML Neb Soln NEB PRN (19:14)
[2021-02-02] MEDS: Citalopram 20 MG Tab PO SCH (20:47)
[2021-02-02] MEDS: Tamsulosin 0.4 MG Cap.ER PO SCH (20:49)
[2021-02-02] MEDS: traZODone 50 MG Tab PO PRN (20:49)
[2021-02-02] MEDS: amLODIPine 10 MG Tab PO SCH (20:50)
[2021-02-02] MEDS: Doxazosin 2 MG Tab PO SCH (21:08)
[2021-02-03] MEDS: oxyCODONE 5 MG Tab PO PRN ×4 (05:59→20:39)
[2021-02-03] MEDS: Furosemide 100 MG/10 ML SDV IVPUSH SCH ×2 (06:00→14:15)
[2021-02-03] MEDS: Pantoprazole 40 MG Tab.CR PO SCH ×2 (06:00→16:03)
[2021-02-03] MEDS: guaiFENesin/Dextromethorphan 100-10 MG/5 ML Soln 5 ML Cup PO PRN (06:00)
[2021-02-03] MEDS: Albuterol/Ipratropium 3.0-0.5 MG/3 ML Neb Soln NEB SCH ×3 (06:21→20:18)
[2021-02-03] MEDS: Formoterol/Mometasone 200-5 MCG 8.8 GM Inhaler IH SCH ×2 (06:22→20:18)
[2021-02-03] MEDS: Aspirin 81 MG Tab.EC PO SCH (08:23)
[2021-02-03] MEDS: guaiFENesin 600 MG Tab.ER PO SCH ×2 (08:23→20:40)
[2021-02-03] MEDS: Apixaban 5 MG Tab PO SCH ×2 (08:23→20:39)
[2021-02-03] MEDS: atorvaSTATin 20 MG Tab PO SCH (08:23)
[2021-02-03] MEDS: busPIRone 5 MG Tab PO SCH ×2 (08:23→20:39)
[2021-02-03] MEDS: Cholecalciferol (Vitamin D3) 25 MCG Tab PO SCH (08:23)
[2021-02-03] MEDS: Potassium Chloride 20 MEQ Tab.ER PO SCH (08:26)
[2021-02-03] MEDS: Allopurinol 100 MG Tab PO SCH (08:26)
[2021-02-03] MEDS: Pregabalin 75 MG Cap PO SCH ×3 (08:26→20:40)
[2021-02-03] MEDS: Isosorbide Mononitrate 30 MG Tab.ER PO SCH (08:27)
[2021-02-03] MEDS: Oxybutynin 5 MG Tab PO SCH ×2 (08:27→20:40)
[2021-02-03] MEDS: Lubiprostone 24 MCG Cap PO SCH ×2 (08:37→20:38)
[2021-02-03] MEDS: Albuterol/Ipratropium 3.0-0.5 MG/3 ML Neb Soln NEB PRN (08:59)
--- NOTE | 2021-02-03 11:04 | PCM.PN ---
- General Info Date of Service: 02/03/21 Admission Dx/Problem (Free Text): Admission Diagnosis/Problem Admission Diagnosis/Problem Respiratory failure with hypoxia and hypercapnia Subjective Update: Chace states that he started feeling better this morning. He was able to produce some thick sputum and his oxygen saturations have certainly improved. He is now on 3 L nasal cannula which is close to his baseline of 3-3-1/2. Functional Status: Reports: Pain Controlled - Review of Systems General: Reports: No Symptoms HEENT: Reports: No Symptoms Pulmonary: Reports: Cough Cardiovascular: Reports: No Symptoms Gastrointestinal: Reports: No Symptoms Musculoskeletal: Reports: No Symptoms Psychiatric: Reports: No Symptoms - Patient Data Vitals - Most Recent: Last Vital Signs Temp 98.2 F 02/03/21 04:47 Pulse 108 H 02/03/21 08:18 Resp 18 02/03/21 08:18 BP 129/59 L 02/03/21 08:27 Pulse Ox 92 L 02/03/21 08:59 Weight - Most Recent: 268 lb 6.4 oz I&O - Last 24 Hours: Intake & Output 02/02/21 02/03/21 02/03/21 22:59 06:59 14:59 Intake Total 1360 300 Output Total 300 850 Balance 1060 -550 Lab Results Last 24 Hours: Laboratory Results - last 24 hr 02/03/21 Range/Units 08:05 Sodium 138 (136-145) mEq/L Potassium 4.0 (3.5-5.1) mEq/L Chloride 103 (98-107) mEq/L Carbon Dioxide 28 (21-32) mEq/L Anion Gap 11.0 (5-15) BUN 18 (7-18) mg/dL Creatinine 1.2 (0.7-1.3) mg/dL Est Cr Clr Drug Dosing 67.48 mL/min Estimated GFR (MDRD) 60 (>60) mL/min BUN/Creatinine Ratio 15.0 (14-18) Glucose 96 (70-99) mg/dL Calcium 8.8 (8.5-10.1) mg/dL Med Orders - Current: Current Medications Acetaminophen (Acetaminophen 325 Mg Tab) 650 mg PO Q6H PRN PRN Reason: Pain (Mild 1-3)/fever Last Admin: 01/31/21 11:48 Dose: 650 mg Documented by: Albuterol/Ipratropium (Albuterol/Ipratropium 3.0-0.5 Mg/3 Ml Neb Soln) 3 ml NEB Q4HRRT PRN PRN Reason: Shortness Of Breath/wheezing Last Admin: 02/03/21 08:59 Dose: 3 ml Documented by: Albuterol/Ipratropium (Albuterol/Ipratropium 3.0-0.5 Mg/3 Ml Neb Soln) 3 ml NEB TIDRT [facility] Last Admin: 02/03/21 06:21 Dose: 3 ml Documented by: Allopurinol (Allopurinol 100 Mg Tab) 100 mg PO DAILY [facility] Last Admin: 02/03/21 08:26 Dose: 100 mg Documented by: Amlodipine Besylate (Amlodipine 10 Mg Tab) 10 mg PO BEDTIME [facility] Last Admin: 02/02/21 20:50 Dose: 10 mg Documented by: Apixaban (Apixaban 5 Mg Tab) 5 mg PO BID [facility] Last Admin: 02/03/21 08:23 Dose: 5 mg Documented by: Aspirin (Aspirin 81 Mg Tab.Ec) 81 mg PO DAILY [facility] Last Admin: 02/03/21 08:23 Dose: 81 mg Documented by: Atorvastatin Calcium (Atorvastatin 20 Mg Tab) 20 mg PO DAILY [facility] Last Admin: 02/03/21 08:23 Dose: 20 mg Documented by: Buspirone HCl (Buspirone 5 Mg Tab) 7.5 mg PO BID [facility] Last Admin: 02/03/21 08:23 Dose: 7.5 mg Documented by: Cholecalciferol (Cholecalciferol (Vitamin D3) 25 Mcg Tab) 50 mcg PO DAILY [facility] Last Admin: 02/03/21 08:23 Dose: 50 mcg Documented by: Citalopram Hydrobromide (Citalopram 20 Mg Tab) 40 mg PO BEDTIME [facility] Last Admin: 02/02/21 20:47 Dose: 40 mg Documented by: Docusate Sodium (Docusate Sodium 100 Mg Cap) 100 mg PO BID PRN PRN Reason: Constipation Doxazosin Mesylate (Doxazosin 2 Mg Tab) 2 mg PO BEDTIME [facility] Last Admin: 02/02/21 21:08 Dose: 2 mg Documented by: Furosemide (Furosemide 100 Mg/10 Ml Sdv) 60 mg IVPUSH BIDDIURETIC [facility] Last Admin: 02/03/21 06:00 Dose: 60 mg Documented by: Guaifenesin (Guaifenesin 600 Mg Tab.Er) 1,200 mg PO BID [facility] Last Admin: 02/03/21 08:23 Dose: 1,200 mg Documented by: Guaifenesin/Dextromethorphan (Guaifenesin/Dextromethorphan 100-10 Mg/5 Ml Soln 5 Ml Cup) 10 ml PO QID PRN PRN Reason: Cough Last Admin: 02/03/21 06:00 Dose: 10 ml Documented by: Hydralazine HCl (Hydralazine 20 Mg/Ml Sdv) 10 mg IVPUSH Q4H PRN PRN Reason: Hypertension Promethazine HCl 12.5 mg/ (Sodium Chloride) 50.5 mls @ 100 mls/hr IV Q6H PRN PRN Reason: Nausea/Vomiting Ceftriaxone Sodium 2 gm/ (Sodium Chloride) 100 mls @ 200 mls/hr IV Q24H [facility] Last Admin: 02/02/21 12:54 Dose: 200 mls/hr Documented by: Azithromycin 500 mg/ Sodium (Chloride) 250 mls @ 250 mls/hr IV Q24H [facility] Last Admin: 02/02/21 13:46 Dose: 250 mls/hr Documented by: Isosorbide Mononitrate (Isosorbide Mononitrate 30 Mg Tab.Er) 30 mg PO DAILY [facility] Last Admin: 02/03/21 08:27 Dose: 30 mg Documented by: Levothyroxine Sodium (Levothyroxine 200 Mcg Tab) 200 mcg PO ACBREAKFAST [facility] Last Admin: 02/03/21 06:00 Dose: 200 mcg Documented by: Lubiprostone (Lubiprostone 24 Mcg Cap) 24 mcg PO BID [facility] Last Admin: 02/03/21 08:37 Dose: 24 mcg Documented by: Mometasone Furoate/Formoterol Fumar (Formoterol/Mometasone 200-5 Mcg 8.8 Gm Inhaler) 2 puff IH BIDRT [facility] Last Admin: 02/03/21 06:22 Dose: 2 puff Documented by: Oxybutynin Chloride (Oxybutynin 5 Mg Tab) 5 mg PO BID [facility] Last Admin: 02/03/21 08:27 Dose: 5 mg Documented by: Oxycodone HCl (Oxycodone 5 Mg Tab) 10 mg PO Q4H PRN PRN Reason: Pain (moderate 4-6) Last Admin: 02/03/21 05:59 Dose: 10 mg Documented by: Pantoprazole Sodium (Pantoprazole 40 Mg Tab.Cr) 40 mg PO BIDAC [facility] Last Admin: 02/03/21 06:00 Dose: 40 mg Documented by: Suvorexant [Belsomra (] 20 Mg Tablet) 0 each PO BEDTIME PRN PRN Reason: Insomnia Potassium Chloride (Potassium Chloride 20 Meq Tab.Er) 20 meq PO DAILY [facility] Last Admin: 02/03/21 08:26 Dose: 20 meq Documented by: Pregabalin (Pregabalin 75 Mg Cap) 150 mg PO TID [facility] Last Admin: 02/03/21 08:26 Dose: 150 mg Documented by: Senna/Docusate Sodium (Docusate Sodium/Sennosides 50-8.6 Mg Tab) 2 tab PO BID PRN PRN Reason: Constipation Sodium Chloride (Sodium Chloride 0.9% 10 Ml Syringe) 10 ml FLUSH ASDIRECTED PRN PRN Reason: Keep Vein Open Last Admin: 01/29/21 14:45 Dose: 10 ml Documented by: Tamsulosin HCl (Tamsulosin 0.4 Mg Cap.Er) 0.4 mg PO BEDTIME [facility] Last Admin: 02/02/21 20:49 Dose: 0.4 mg Documented by: Trazodone HCl (Trazodone 50 Mg Tab) 50 mg PO BEDTIME PRN PRN Reason: insomia Last Admin: 02/02/21 20:49 Dose: 50 mg Documented by: Discontinued Medications Albuterol (Albuterol 0.083% 2.5 Mg/3 Ml Neb Soln) 2.5 mg NEB ONETIME ONE Stop: 01/29/21 16:02 Last Admin: 01/29/21 16:26 Dose: 2.5 mg Documented by: Albuterol/Ipratropium (Albuterol/Ipratropium 3.0-0.5 Mg/3 Ml Neb Soln) 3 ml NEB TIDRT [facility] Allopurinol (Allopurinol 100 Mg Tab) 100 mg PO DAILY [facility] Last Admin: 01/30/21 12:11 Dose: Not Given Documented by: Apixaban (Apixaban 5 Mg Tab) 5 mg PO BID [facility] Last Admin: 01/30/21 12:06 Dose: Not Given Documented by: Aspirin (Aspirin 81 Mg Tab.Ec) 81 mg PO DAILY [facility] Last Admin: 01/30/21 12:06 Dose: Not Given Documented by: Atorvastatin Calcium (Atorvastatin 20 Mg Tab) 20 mg PO DAILY [facility] Last Admin: 01/30/21 12:10 Dose: Not Given Documented by: Buspirone HCl (Buspirone 5 Mg Tab) 7.5 mg PO BID [facility] Last Admin: 01/30/21 12:06 Dose: Not Given Documented by: Carvedilol (Carvedilol 3.125 Mg Tab) 3.125 mg PO BIDMEALS [facility] Last Admin: 01/30/21 12:06 Dose: Not Given Documented by: Cholecalciferol (Cholecalciferol (Vitamin D3) 25 Mcg Tab) 50 mcg PO DAILY [facility] Last Admin: 01/30/21 12:10 Dose: Not Given Documented by: Doxazosin Mesylate (Doxazosin 4 Mg Tab) 4 mg PO BEDTIME [facility] Last Admin: 01/30/21 12:05 Dose: Not Given Documented by: Enoxaparin Sodium (Enoxaparin 40 Mg/0.4 Ml Syringe) 40 mg SUBCUT DAILY [facility] Finasteride (Finasteride 5 Mg Tab) 5 mg PO DAILY [facility] Last Admin: 01/30/21 12:10 Dose: Not Given Documented by: Finasteride (Finasteride 5 Mg Tab) 5 mg PO DAILY [facility] Last Admin: 01/31/21 09:11 Dose: 5 mg Documented by: Furosemide (Furosemide 40 Mg/4 Ml Vial) 40 mg IVPUSH BID [facility] Last Admin: 01/30/21 12:09 Dose: Not Given Documented by: Furosemide (Furosemide 40 Mg/4 Ml Vial) 40 mg IVPUSH BID [facility] Last Admin: 01/31/21 09:14 Dose: 40 mg Documented by: Guaifenesin (Guaifenesin 600 Mg Tab.Er) 1,200 mg PO BID PRN PRN Reason: Cough Last Admin: 02/01/21 09:22 Dose: 1,200 mg Documented by: Sodium Chloride (Normal Saline) 100 mls @ 60 mls/hr IV ASDIRECTED [facility] Last Admin: 01/29/21 15:50 Dose: 60 mls/hr Documented by: Ceftriaxone Sodium 1 gm/ (Sodium Chloride) 100 mls @ 200 mls/hr IV ONETIME ONE Stop: 01/29/21 16:51 Last Admin: 01/29/21 15:30 Dose: 200 mls/hr Documented by: Ceftriaxone Sodium 2 gm/ (Sodium Chloride) 100 mls @ 200 mls/hr IV Q24H [facility] Azithromycin 500 mg/ Sodium (Chloride) 250 mls @ 250 mls/hr IV Q24H [facility] Sodium Chloride (Normal Saline) 500 mls @ 250 mls/hr IV ONETIME ONE Stop: 01/30/21 00:41 Last Admin: 01/29/21 22:58 Dose: 250 mls/hr Documented by: Sodium Chloride (Normal Saline) Confirm Administered Dose 1,000 mls @ as directed .ROUTE .STK-MED ONE Stop: 01/29/21 22:48 Last Admin: 01/29/21 22:59 Dose: Not Given Documented by: Iopamidol (Iopamidol 755 Mg/Ml 100 Ml Bottle) 100 ml IVPUSH ONETIME ONE Stop: 01/29/21 15:30 Last Admin: 01/29/21 15:47 Dose: 100 ml Documented by: Isosorbide Mononitrate (Isosorbide Mononitrate 60 Mg Tab.Er) 60 mg PO BEDTIME [facility] Last Admin: 01/30/21 20:45 Dose: 60 mg Documented by: Levothyroxine Sodium (Levothyroxine 25 Mcg Tab) 25 mcg PO DAILY [facility] Morphine Sulfate (Morphine 2 Mg/Ml Syringe) 2 mg IVPUSH Q4H PRN PRN Reason: Pain (severe 7-10) Stop: 01/30/21 16:55 Non-Formulary Medication (Naloxone Hcl [Narcan]) 4 mg NS ASDIRECTED PRN PRN Reason: Opioid Overdose Oxycodone HCl (Oxycodone 5 Mg Tab) 5 mg PO Q6H PRN PRN Reason: Pain (moderate 4-6) Last Admin: 01/30/21 10:14 Dose: 5 mg Documented by: Oxycodone HCl (Oxycodone 5 Mg Tab) 10 mg PO TID PRN PRN Reason: Pain (moderate 4-6) Last Admin: 01/31/21 09:13 Dose: 10 mg Documented by: Polyethylene Glycol (Polyethylene Glycol 3350 Powder 17 Gm Packet) gm PO Q72H [facility] Potassium Chloride (Potassium Chloride 20 Meq Tab.Er) 40 meq PO BID [facility] Stop: 02/02/21 21:01 Last Admin: 02/02/21 20:47 Dose: 40 meq Documented by: Pregabalin (Pregabalin 75 Mg Cap) 150 mg PO TID [facility] Last Admin: 01/30/21 12:10 Dose: Not Given Documented by: Sodium Chloride (Sodium Chloride 0.9% 10 Ml Syringe) 10 ml FLUSH ONETIME PRN PRN Reason: Keep Vein Open Last Admin: 01/29/21 15:47 Dose: 10 ml Documented by: Sodium Phosphate (Phosphorus #1 250 Mg Tab) 250 mg PO QID [facility] Stop: 01/30/21 17:01 Last Admin: 01/30/21 12:10 Dose: Not Given Documented by: Sodium Phosphate (Phosphorus #1 250 Mg Tab) 250 mg PO QID [facility] Stop: 01/30/21 21:01 Last Admin: 01/30/21 20:47 Dose: 250 mg Documented by: Zolpidem Tartrate (Zolpidem 5 Mg Tab) 2.5 mg PO BEDTIME PRN PRN Reason: Insomnia Stop: 02/01/21 21:01 - Exam Quality Assessment: Supplemental Oxygen General: Alert, Oriented HEENT: Pupils Equal, Mucous Membr. Moist/[place] Neck: Supple Lungs: Normal Respiratory Effort, Rales (Bibasilar) Cardiovascular: Regular Rate, Regular Rhythm GI/Abdominal Exam: Normal Bowel Sounds, Soft, Non-Tender, No Distention Extremities: Normal Inspection, Normal Range of Motion, Non-Tender, Normal Capillary Refill, Pedal Edema (1+) Skin: Warm, Dry, Intact Neurological: No New Focal Deficit Psy/Mental Status: Alert, Normal Affect, Normal Mood - Patient Data Lab Results Last 24 hrs: Laboratory Results - last 24 hr 02/03/21 Range/Units 08:05 Sodium 138 (136-145) mEq/L Potassium 4.0 (3.5-5.1) mEq/L Chloride 103 (98-107) mEq/L Carbon Dioxide 28 (21-32) mEq/L Anion Gap 11.0 (5-15) BUN 18 (7-18) mg/dL Creatinine 1.2 (0.7-1.3) mg/dL Est Cr Clr Drug Dosing 67.48 mL/min Estimated GFR (MDRD) 60 (>60) mL/min BUN/Creatinine Ratio 15.0 (14-18) Glucose 96 (70-99) mg/dL Calcium 8.8 (8.5-10.1) mg/dL Result Diagrams: 02/02/21 08:17 02/03/21 08:05 Sepsis Event Note - Evaluation Sepsis Screening Result: No Definite Risk - Focused Exam Vital Signs: Vital Signs Temp Pulse Resp BP Pulse Ox Pulse Ox 02/03/21 08:59 92 L 02/03/21 08:27 129/59 L 02/03/21 08:18 108 H 18 129/59 L 87 L 02/03/21 06:34 92 L 02/03/21 06:23 88 L 02/03/21 04:48 91 L 02/03/21 04:47 98.2 F 82 18 118/59 L 86 L - Problem List & Annotations (1) RSV (respiratory syncytial virus infection) SNOMED Code(s): 64193833 Code(s): B97.4 - RESPIRATORY SYNCYTIAL VIRUS CAUSING DISEASES CLASSD [id number] Status: Acute Current Visit: Yes (2) COPD exacerbation SNOMED Code(s): 741810857 Code(s): J44.1 - CHRONIC OBSTRUCTIVE PULMONARY DISEASE W (ACUTE) EXACERBATION Status: Acute Current Visit: Yes (3) Congestive heart failure SNOMED Code(s): 70166008 Code(s): I50.9 - HEART FAILURE, UNSPECIFIED Status: Chronic Priority: High Current Visit: Yes - Problem List Review Problem List Initiated/Reviewed/Updated: Yes - My Orders Last 24 Hours: My Active Orders 02/03/21 Lunch Fluid Restriction [DIET] - Plan Plan:: Patient is a 70-year-old male with a history of hypertension, COPD, CHF, atrial fibrillation, and chronic back pain who presented to the ER due to worsening shortness of breath. Assessment and plan: Acute hypoxic respiratory failure Etiology likely a combination of RSV infection induced, CHF exacerbation, pneu monia, and COPD Repeat chest x-ray on the showed increasing density within the left upper chest from prior study which may represent an area of pneumonia. Patient has had improvement in his fevers since starting antibiotics. Last high temperature was 100.8 on 01/31 at 0800 hrs. In the ER, he had a SpO2 89% with 6L CTA chest - NO PE; small parenchymal densities within both lower lungs as well as left upper lung Pulse ox Has decreased from high flow nasal cannula 40L to 3 L this morning. CHF, preserved ejection fraction 6+ pound weight loss since admission BNP 1924 on admission CXR - cardiomegaly with mild pulmonary vascular congestion. Troponin < 0.017 x [address] elevation lasix 80mg po bid is on hold Increased lasix to 60mg iv bid. Intake and output Follow electrolytes Echocardiogram showed a normal left ejection fraction of 55 to 60%. No mention of diastolic dysfunction. The right ventricle systolic pressure was normal at 32.4 mmHg. Technically difficult study. Suspect normal LV systolic function. Minimal valvular disease. Potassium was low at 3.1 today and will be supplemented with potassium 40 mEq p.o. twice daily x2 doses. Pneumonia Afebrile last 48 hours CXR on 01/31/2021 showed mild increasing central lung markings possibly due to mild pulmonary vascular congestion. Increasing density within the left upper chest from prior study which may represent an area of pneumonia versus asymmetric pulmonary vascular congestion. Normal white count Procalcitonin increased from less than 0.05 to 0.23 influenza A and B negative RSV positive Covid 19 negative. He has been fully vaccinated against covid 19 His fever could result from RSV infection or secondary bacterial pneumonia Rocephin and azithromycin started yesterday Droplet isolation COPD Stable Continue inhalers Atrial fib Heart rate is controlled nebivolol 2.5mg daily Continue Eliquis 5mg bid patient does have thrombocytopenia with platelet count of 90,000. Will follow closely for bleeding. Chronic back pain Home medications include trazodone 50 mg at bedtime and oxycodone/acetaminophen 10-325 mg every 4 hours as needed. I will change it to oxycodone 10 mg oral 6 times daily as needed, trazodone 50 mg at bedtime and Ambien 2.5 mg at bedtime. 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 HTN Continue amlodipine 10mg daily, imdur 60mg daily, nebivolol 2.5mg daily Hydralazine as needed Thrombocytopenia, chronic 101->89-> 87->90 platelets 151 on 07/12/2019 No evidence of bleeding. Will continue his Eliquis but closely monitor. I will hold Eliquis if platelets continue to decrease or bleeding occurs. Repeat CBC in morning Elevation of D-dimer, 0.98 CTA chest - no PE. Patient has been on Eliquis. I would not like to do more work-up Continue Eliquis Hx of dysphagia Speech pathology consultno dysphagia. On mechanical soft because he does not have his dentures. Pulmonary nodule Repeat CT chest in 6 months DVT prophylaxis: Eliquis CODE STATUS: Full Prognosis: Good
[2021-02-03] MEDS: cefTRIAXone 2 GM in Sodium Chloride 0.9% 100 ML IV SCH (13:05)
[2021-02-03] MEDS: Azithromycin 500 MG in Sodium Chloride 0.9% 250 ML IV SCH (14:16)
[2021-02-03] MEDS: amLODIPine 10 MG Tab PO SCH (20:39)
[2021-02-03] MEDS: Tamsulosin 0.4 MG Cap.ER PO SCH (20:39)
[2021-02-03] MEDS: Citalopram 20 MG Tab PO SCH (20:40)
[2021-02-03] MEDS: Doxazosin 2 MG Tab PO SCH (20:40)
[2021-02-04] MEDS: oxyCODONE 5 MG Tab PO PRN ×4 (01:11→21:29)
[2021-02-04] MEDS: Pantoprazole 40 MG Tab.CR PO SCH ×2 (05:10→15:28)
[2021-02-04] MEDS: Furosemide 100 MG/10 ML SDV IVPUSH SCH ×2 (05:10→14:35)
[2021-02-04] MEDS: Formoterol/Mometasone 200-5 MCG 8.8 GM Inhaler IH SCH ×2 (06:16→20:35)
[2021-02-04] MEDS: Albuterol/Ipratropium 3.0-0.5 MG/3 ML Neb Soln NEB SCH ×3 (06:16→20:35)
[2021-02-04] MEDS: Cholecalciferol (Vitamin D3) 25 MCG Tab PO SCH (08:53)
[2021-02-04] MEDS: atorvaSTATin 20 MG Tab PO SCH (08:53)
[2021-02-04] MEDS: Apixaban 5 MG Tab PO SCH ×2 (08:54→21:29)
[2021-02-04] MEDS: Aspirin 81 MG Tab.EC PO SCH (08:54)
[2021-02-04] MEDS: Allopurinol 100 MG Tab PO SCH (08:54)
[2021-02-04] MEDS: Isosorbide Mononitrate 30 MG Tab.ER PO SCH (08:55)
[2021-02-04] MEDS: Oxybutynin 5 MG Tab PO SCH ×2 (08:55→21:29)
[2021-02-04] MEDS: busPIRone 5 MG Tab PO SCH ×2 (08:57→21:29)
[2021-02-04] MEDS: guaiFENesin 600 MG Tab.ER PO SCH ×2 (08:57→21:29)
[2021-02-04] MEDS: Pregabalin 75 MG Cap PO SCH ×3 (08:58→21:28)
[2021-02-04] MEDS: Potassium Chloride 20 MEQ Tab.ER PO SCH (08:58)
[2021-02-04] MEDS: Lubiprostone 24 MCG Cap PO SCH ×2 (09:00→21:30)
--- NOTE | 2021-02-04 09:54 | PCM.PN ---
- General Info Date of Service: 02/04/21 Admission Dx/Problem (Free Text): Admission Diagnosis/Problem Admission Diagnosis/Problem Respiratory failure with hypoxia and hypercapnia Functional Status: Reports: Pain Controlled, Tolerating Diet, Ambulating, Urinating, Incentive Spirometry. Denies: New Symptoms - Review of Systems General: Reports: No Symptoms. Denies: Fever, Weakness, Fatigue, Malaise, Chills HEENT: Reports: No Symptoms. Denies: Headaches, Sore Throat Pulmonary: Reports: Shortness of Breath, Cough. Denies: Sputum, Wheezing Cardiovascular: Reports: Dyspnea on Exertion, Orthopnea, Edema. Denies: Chest Pain, Palpitations Gastrointestinal: Reports: No Symptoms. Denies: Abdominal Pain, Constipation, Diarrhea, Nausea, Vomiting Genitourinary: Reports: No Symptoms. Denies: Pain Musculoskeletal: Reports: No Symptoms Skin: Reports: No Symptoms. Denies: Cyanosis Neurological: Reports: No Symptoms. Denies: Confusion, Numbness, Pre-Existing Deficit, Tingling, Trouble Speaking, Difficulty Walking, Weakness, Gait Disturbance Psychiatric: Reports: No Symptoms - Patient Data Vitals - Most Recent: Last Vital Signs Temp 97.9 F 02/04/21 08:48 Pulse 91 02/04/21 08:48 Resp 19 02/04/21 08:48 BP 126/63 02/04/21 08:55 Pulse Ox 90 L 02/04/21 08:48 Weight - Most Recent: 269 lb 11.2 oz I&O - Last 24 Hours: Intake & Output 02/03/21 02/04/21 02/04/21 22:59 06:59 14:59 Intake Total 1070 400 Output Total 950 300 Balance 120 100 Lab Results Last 24 Hours: Laboratory Results - last 24 hr 02/04/21 02/04/21 Range/Units 05:40 05:40 WBC 6.42 (4.23-9.07) K/mm3 RBC 3.81 L (4.63-6.08) M/mm3 Hgb 11.5 L (13.7-17.5) gm/dl Hct 35.7 L (40.1-51.0) % MCV 93.7 H (79.0-92.2) fl MCH 30.2 (25.7-32.2) pg MCHC 32.2 (32.2-35.5) g/dl RDW Std Deviation 46.9 H (35.1-43.9) fL Plt Count 147 L (163-337) K/mm3 MPV 11.7 (9.4-12.3) fl Neut % (Auto) 67.2 (34.0-67.9) % Lymph % (Auto) 17.4 L (21.8-53.1) % [place] % (Auto) 9.3 (5.3-12.2) % Eos % (Auto) 5.0 (0.8-7.0) Baso % (Auto) 0.9 (0.1-1.2) % Neut # (Auto) 4.31 (1.78-5.38) K/mm3 Lymph # (Auto) 1.12 L (1.32-3.57) K/mm3 [place] # (Auto) 0.60 (0.30-0.82) K/mm3 Eos # (Auto) 0.32 (0.04-0.54) K/mm3 Baso # (Auto) 0.06 (0.01-0.08) K/mm3 Manual Slide Review Abnormal smear Sodium 140 (136-145) mEq/L Potassium 4.0 (3.5-5.1) mEq/L Chloride 103 (98-107) mEq/L Carbon Dioxide 28 (21-32) mEq/L Anion Gap 13.0 (5-15) BUN 16 (7-18) mg/dL Creatinine 1.0 (0.7-1.3) mg/dL Est Cr Clr Drug Dosing 80.98 mL/min Estimated GFR (MDRD) > 60 (>60) mL/min BUN/Creatinine Ratio 16.0 (14-18) Glucose 90 (70-99) mg/dL Calcium 9.1 (8.5-10.1) mg/dL Phosphorus 3.4 (2.6-4.7) mg/dL Magnesium 2.0 (1.8-2.4) mg/dL Total Bilirubin 0.7 (0.2-1.0) mg/dL AST 43 H (15-37) U/L ALT 37 (16-63) U/L Alkaline Phosphatase 74 (46-116) U/L C-Reactive Protein 15.0 H* (<1.0) mg/dL Total Protein 6.1 L (6.4-8.2) g/dl Albumin 2.5 L (3.4-5.0) g/dl Globulin 3.6 gm/dL Albumin/Globulin Ratio 0.7 L (1-2) Med Orders - Current: Current Medications Acetaminophen (Acetaminophen 325 Mg Tab) 650 mg PO Q6H PRN PRN Reason: Pain (Mild 1-3)/fever Last Admin: 01/31/21 11:48 Dose: 650 mg Documented by: Albuterol/Ipratropium (Albuterol/Ipratropium 3.0-0.5 Mg/3 Ml Neb Soln) 3 ml NEB Q4HRRT PRN PRN Reason: Shortness Of Breath/wheezing Last Admin: 02/03/21 08:59 Dose: 3 ml Documented by: Albuterol/Ipratropium (Albuterol/Ipratropium 3.0-0.5 Mg/3 Ml Neb Soln) 3 ml NEB TIDRT [facility] Last Admin: 02/04/21 06:16 Dose: 3 ml Documented by: Allopurinol (Allopurinol 100 Mg Tab) 100 mg PO DAILY [facility] Last Admin: 02/04/21 08:54 Dose: 100 mg Documented by: Amlodipine Besylate (Amlodipine 10 Mg Tab) 10 mg PO BEDTIME [facility] Last Admin: 02/03/21 20:39 Dose: 10 mg Documented by: Apixaban (Apixaban 5 Mg Tab) 5 mg PO BID [facility] Last Admin: 02/04/21 08:54 Dose: 5 mg Documented by: Aspirin (Aspirin 81 Mg Tab.Ec) 81 mg PO DAILY [facility] Last Admin: 02/04/21 08:54 Dose: 81 mg Documented by: Atorvastatin Calcium (Atorvastatin 20 Mg Tab) 20 mg PO DAILY [facility] Last Admin: 02/04/21 08:53 Dose: 20 mg Documented by: Buspirone HCl (Buspirone 5 Mg Tab) 7.5 mg PO BID [facility] Last Admin: 02/04/21 08:57 Dose: 7.5 mg Documented by: Cholecalciferol (Cholecalciferol (Vitamin D3) 25 Mcg Tab) 50 mcg PO DAILY [facility] Last Admin: 02/04/21 08:53 Dose: 50 mcg Documented by: Citalopram Hydrobromide (Citalopram 20 Mg Tab) 40 mg PO BEDTIME [facility] Last Admin: 02/03/21 20:40 Dose: 40 mg Documented by: Docusate Sodium (Docusate Sodium 100 Mg Cap) 100 mg PO BID PRN PRN Reason: Constipation Doxazosin Mesylate (Doxazosin 2 Mg Tab) 2 mg PO BEDTIME [facility] Last Admin: 02/03/21 20:40 Dose: 2 mg Documented by: Furosemide (Furosemide 100 Mg/10 Ml Sdv) 80 mg IVPUSH BIDDIURETIC [facility] Furosemide (Furosemide 20 Mg/2 Ml Vial) 20 mg IVPUSH ONETIME ONE Stop: 02/04/21 09:53 Guaifenesin (Guaifenesin 600 Mg Tab.Er) 1,200 mg PO BID [facility] Last Admin: 02/04/21 08:57 Dose: 1,200 mg Documented by: Guaifenesin/Dextromethorphan (Guaifenesin/Dextromethorphan 100-10 Mg/5 Ml Soln 5 Ml Cup) 10 ml PO QID PRN PRN Reason: Cough Last Admin: 02/03/21 06:00 Dose: 10 ml Documented by: Hydralazine HCl (Hydralazine 20 Mg/Ml Sdv) 10 mg IVPUSH Q4H PRN PRN Reason: Hypertension Promethazine HCl 12.5 mg/ (Sodium Chloride) 50.5 mls @ 100 mls/hr IV Q6H PRN PRN Reason: Nausea/Vomiting Ceftriaxone Sodium 2 gm/ (Sodium Chloride) 100 mls @ 200 mls/hr IV Q24H [facility] Stop: 02/07/21 13:31 Last Admin: 02/03/21 13:05 Dose: 200 mls/hr Documented by: Azithromycin 500 mg/ Sodium (Chloride) 250 mls @ 250 mls/hr IV Q24H [facility] Stop: 02/04/21 14:59 Last Admin: 02/03/21 14:16 Dose: 250 mls/hr Documented by: Isosorbide Mononitrate (Isosorbide Mononitrate 30 Mg Tab.Er) 30 mg PO DAILY [facility] Last Admin: 02/04/21 08:55 Dose: 30 mg Documented by: Levothyroxine Sodium (Levothyroxine 200 Mcg Tab) 200 mcg PO ACBREAKFAST [facility] Last Admin: 02/04/21 05:10 Dose: 200 mcg Documented by: Lubiprostone (Lubiprostone 24 Mcg Cap) 24 mcg PO BID [facility] Last Admin: 02/04/21 09:00 Dose: 24 mcg Documented by: Mometasone Furoate/Formoterol Fumar (Formoterol/Mometasone 200-5 Mcg 8.8 Gm Inhaler) 2 puff IH BIDRT [facility] Last Admin: 02/04/21 06:16 Dose: 2 puff Documented by: Oxybutynin Chloride (Oxybutynin 5 Mg Tab) 5 mg PO BID [facility] Last Admin: 02/04/21 08:55 Dose: 5 mg Documented by: Oxycodone HCl (Oxycodone 5 Mg Tab) 10 mg PO Q4H PRN PRN Reason: Pain (moderate 4-6) Last Admin: 02/04/21 01:11 Dose: 10 mg Documented by: Pantoprazole Sodium (Pantoprazole 40 Mg Tab.Cr) 40 mg PO BIDAC [facility] Last Admin: 02/04/21 05:10 Dose: 40 mg Documented by: Suvorexant [Belsomra (] 20 Mg Tablet) 0 each PO BEDTIME PRN PRN Reason: Insomnia Potassium Chloride (Potassium Chloride 20 Meq Tab.Er) 20 meq PO DAILY [facility] Last Admin: 02/04/21 08:58 Dose: 20 meq Documented by: Pregabalin (Pregabalin 75 Mg Cap) 150 mg PO TID [facility] Last Admin: 02/04/21 08:58 Dose: 150 mg Documented by: Senna/Docusate Sodium (Docusate Sodium/Sennosides 50-8.6 Mg Tab) 2 tab PO BID PRN PRN Reason: Constipation Sodium Chloride (Sodium Chloride 0.9% 10 Ml Syringe) 10 ml FLUSH ASDIRECTED PRN PRN Reason: Keep Vein Open Last Admin: 01/29/21 14:45 Dose: 10 ml Documented by: Tamsulosin HCl (Tamsulosin 0.4 Mg Cap.Er) 0.4 mg PO BEDTIME [facility] Last Admin: 02/03/21 20:39 Dose: 0.4 mg Documented by: Trazodone HCl (Trazodone 50 Mg Tab) 50 mg PO BEDTIME PRN PRN Reason: insomia Last Admin: 02/02/21 20:49 Dose: 50 mg Documented by: Discontinued Medications Albuterol (Albuterol 0.083% 2.5 Mg/3 Ml Neb Soln) 2.5 mg NEB ONETIME ONE Stop: 01/29/21 16:02 Last Admin: 01/29/21 16:26 Dose: 2.5 mg Documented by: Albuterol/Ipratropium (Albuterol/Ipratropium 3.0-0.5 Mg/3 Ml Neb Soln) 3 ml NEB TIDRT [facility] Allopurinol (Allopurinol 100 Mg Tab) 100 mg PO DAILY [facility] Last Admin: 01/30/21 12:11 Dose: Not Given Documented by: Apixaban (Apixaban 5 Mg Tab) 5 mg PO BID [facility] Last Admin: 01/30/21 12:06 Dose: Not Given Documented by: Aspirin (Aspirin 81 Mg Tab.Ec) 81 mg PO DAILY [facility] Last Admin: 01/30/21 12:06 Dose: Not Given Documented by: Atorvastatin Calcium (Atorvastatin 20 Mg Tab) 20 mg PO DAILY [facility] Last Admin: 01/30/21 12:10 Dose: Not Given Documented by: Buspirone HCl (Buspirone 5 Mg Tab) 7.5 mg PO BID [facility] Last Admin: 01/30/21 12:06 Dose: Not Given Documented by: Carvedilol (Carvedilol 3.125 Mg Tab) 3.125 mg PO BIDMEALS [facility] Last Admin: 01/30/21 12:06 Dose: Not Given Documented by: Cholecalciferol (Cholecalciferol (Vitamin D3) 25 Mcg Tab) 50 mcg PO DAILY [facility] Last Admin: 01/30/21 12:10 Dose: Not Given Documented by: Doxazosin Mesylate (Doxazosin 4 Mg Tab) 4 mg PO BEDTIME [facility] Last Admin: 01/30/21 12:05 Dose: Not Given Documented by: Enoxaparin Sodium (Enoxaparin 40 Mg/0.4 Ml Syringe) 40 mg SUBCUT DAILY [facility] Finasteride (Finasteride 5 Mg Tab) 5 mg PO DAILY [facility] Last Admin: 01/30/21 12:10 Dose: Not Given Documented by: Finasteride (Finasteride 5 Mg Tab) 5 mg PO DAILY [facility] Last Admin: 01/31/21 09:11 Dose: 5 mg Documented by: Furosemide (Furosemide 40 Mg/4 Ml Vial) 40 mg IVPUSH BID [facility] Last Admin: 01/30/21 12:09 Dose: Not Given Documented by: Furosemide (Furosemide 40 Mg/4 Ml Vial) 40 mg IVPUSH BID [facility] Last Admin: 01/31/21 09:14 Dose: 40 mg Documented by: Furosemide (Furosemide 100 Mg/10 Ml Sdv) 60 mg IVPUSH BIDDIURETIC [facility] Last Admin: 02/04/21 05:10 Dose: 60 mg Documented by: Guaifenesin (Guaifenesin 600 Mg Tab.Er) 1,200 mg PO BID PRN PRN Reason: Cough Last Admin: 02/01/21 09:22 Dose: 1,200 mg Documented by: Sodium Chloride (Normal Saline) 100 mls @ 60 mls/hr IV ASDIRECTED [facility] Last Admin: 01/29/21 15:50 Dose: 60 mls/hr Documented by: Ceftriaxone Sodium 1 gm/ (Sodium Chloride) 100 mls @ 200 mls/hr IV ONETIME ONE Stop: 01/29/21 16:51 Last Admin: 01/29/21 15:30 Dose: 200 mls/hr Documented by: Ceftriaxone Sodium 2 gm/ (Sodium Chloride) 100 mls @ 200 mls/hr IV Q24H [facility] Azithromycin 500 mg/ Sodium (Chloride) 250 mls @ 250 mls/hr IV Q24H [facility] Sodium Chloride (Normal Saline) 500 mls @ 250 mls/hr IV ONETIME ONE Stop: 01/30/21 00:41 Last Admin: 01/29/21 22:58 Dose: 250 mls/hr Documented by: Sodium Chloride (Normal Saline) Confirm Administered Dose 1,000 mls @ as directed .ROUTE .STK-MED ONE Stop: 01/29/21 22:48 Last Admin: 01/29/21 22:59 Dose: Not Given Documented by: Iopamidol (Iopamidol 755 Mg/Ml 100 Ml Bottle) 100 ml IVPUSH ONETIME ONE Stop: 01/29/21 15:30 Last Admin: 01/29/21 15:47 Dose: 100 ml Documented by: Isosorbide Mononitrate (Isosorbide Mononitrate 60 Mg Tab.Er) 60 mg PO BEDTIME [facility] Last Admin: 01/30/21 20:45 Dose: 60 mg Documented by: Levothyroxine Sodium (Levothyroxine 25 Mcg Tab) 25 mcg PO DAILY [facility] Morphine Sulfate (Morphine 2 Mg/Ml Syringe) 2 mg IVPUSH Q4H PRN PRN Reason: Pain (severe 7-10) Stop: 01/30/21 16:55 Non-Formulary Medication (Naloxone Hcl [Narcan]) 4 mg NS ASDIRECTED PRN PRN Reason: Opioid Overdose Oxycodone HCl (Oxycodone 5 Mg Tab) 5 mg PO Q6H PRN PRN Reason: Pain (moderate 4-6) Last Admin: 01/30/21 10:14 Dose: 5 mg Documented by: Oxycodone HCl (Oxycodone 5 Mg Tab) 10 mg PO TID PRN PRN Reason: Pain (moderate 4-6) Last Admin: 01/31/21 09:13 Dose: 10 mg Documented by: Polyethylene Glycol (Polyethylene Glycol 3350 Powder 17 Gm Packet) gm PO Q72H [facility] Potassium Chloride (Potassium Chloride 20 Meq Tab.Er) 40 meq PO BID [facility] Stop: 02/02/21 21:01 Last Admin: 02/02/21 20:47 Dose: 40 meq Documented by: Pregabalin (Pregabalin 75 Mg Cap) 150 mg PO TID [facility] Last Admin: 01/30/21 12:10 Dose: Not Given Documented by: Sodium Chloride (Sodium Chloride 0.9% 10 Ml Syringe) 10 ml FLUSH ONETIME PRN PRN Reason: Keep Vein Open Last Admin: 01/29/21 15:47 Dose: 10 ml Documented by: Sodium Phosphate (Phosphorus #1 250 Mg Tab) 250 mg PO QID [facility] Stop: 01/30/21 17:01 Last Admin: 01/30/21 12:10 Dose: Not Given Documented by: Sodium Phosphate (Phosphorus #1 250 Mg Tab) 250 mg PO QID [facility] Stop: 01/30/21 21:01 Last Admin: 01/30/21 20:47 Dose: 250 mg Documented by: Zolpidem Tartrate (Zolpidem 5 Mg Tab) 2.5 mg PO BEDTIME PRN PRN Reason: Insomnia Stop: 02/01/21 21:01 - Exam Quality Assessment: Supplemental Oxygen (3L), DVT Prophylaxis General: Alert, Oriented, Cooperative, No Acute Distress HEENT: Pupils Equal, Pupils Reactive, Mucous Membr. Moist/[place] Neck: Supple, Trachea Midline Lungs: Normal Respiratory Effort, Decreased Breath Sounds, Rales Cardiovascular: Regular Rate, Regular Rhythm, Murmurs GI/Abdominal Exam: Normal Bowel Sounds, Soft, Non-Tender, No Distention (Male) Exam: Deferred Back Exam: Normal Inspection, Full Range of Motion Extremities: Normal Inspection, Normal Range of Motion, Non-Tender, Normal Capillary Refill, Pedal Edema (2+ ) Skin: Warm, Dry, Intact Neurological: No New Focal Deficit Psy/Mental Status: Alert, Normal Affect, Normal Mood - Patient Data Lab Results Last 24 hrs: Laboratory Results - last 24 hr 02/04/21 02/04/21 Range/Units 05:40 05:40 WBC 6.42 (4.23-9.07) K/mm3 RBC 3.81 L (4.63-6.08) M/mm3 Hgb 11.5 L (13.7-17.5) gm/dl Hct 35.7 L (40.1-51.0) % MCV 93.7 H (79.0-92.2) fl MCH 30.2 (25.7-32.2) pg MCHC 32.2 (32.2-35.5) g/dl RDW Std Deviation 46.9 H (35.1-43.9) fL Plt Count 147 L (163-337) K/mm3 MPV 11.7 (9.4-12.3) fl Neut % (Auto) 67.2 (34.0-67.9) % Lymph % (Auto) 17.4 L (21.8-53.1) % [place] % (Auto) 9.3 (5.3-12.2) % Eos % (Auto) 5.0 (0.8-7.0) Baso % (Auto) 0.9 (0.1-1.2) % Neut # (Auto) 4.31 (1.78-5.38) K/mm3 Lymph # (Auto) 1.12 L (1.32-3.57) K/mm3 [place] # (Auto) 0.60 (0.30-0.82) K/mm3 Eos # (Auto) 0.32 (0.04-0.54) K/mm3 Baso # (Auto) 0.06 (0.01-0.08) K/mm3 Manual Slide Review Abnormal smear Sodium 140 (136-145) mEq/L Potassium 4.0 (3.5-5.1) mEq/L Chloride 103 (98-107) mEq/L Carbon Dioxide 28 (21-32) mEq/L Anion Gap 13.0 (5-15) BUN 16 (7-18) mg/dL Creatinine 1.0 (0.7-1.3) mg/dL Est Cr Clr Drug Dosing 80.98 mL/min Estimated GFR (MDRD) > 60 (>60) mL/min BUN/Creatinine Ratio 16.0 (14-18) Glucose 90 (70-99) mg/dL Calcium 9.1 (8.5-10.1) mg/dL Phosphorus 3.4 (2.6-4.7) mg/dL Magnesium 2.0 (1.8-2.4) mg/dL Total Bilirubin 0.7 (0.2-1.0) mg/dL AST 43 H (15-37) U/L ALT 37 (16-63) U/L Alkaline Phosphatase 74 (46-116) U/L C-Reactive Protein 15.0 H* (<1.0) mg/dL Total Protein 6.1 L (6.4-8.2) g/dl Albumin 2.5 L (3.4-5.0) g/dl Globulin 3.6 gm/dL Albumin/Globulin Ratio 0.7 L (1-2) Result Diagrams: 02/04/21 05:40 02/04/21 05:40 Sepsis Event Note - Evaluation Sepsis Screening Result: No Definite Risk - Focused Exam Vital Signs: Vital Signs Temp Pulse Resp BP Pulse Ox Pulse Ox 02/04/21 08:55 126/63 02/04/21 08:48 97.9 F 91 19 126/63 90 L 02/04/21 06:18 91 L 02/04/21 05:14 97.9 F 91 18 128/82 91 L 02/03/21 23:44 96.1 F L 87 20 114/78 86 L - Problem List & Annotations (1) Acute respiratory failure with hypoxia SNOMED Code(s): 49674759, 244971414 Code(s): J96.01 - ACUTE RESPIRATORY FAILURE WITH HYPOXIA Status: Acute Priority: High Current Visit: Yes (2) COPD exacerbation SNOMED Code(s): 439230960 Code(s): J44.1 - CHRONIC OBSTRUCTIVE PULMONARY DISEASE W (ACUTE) EXACERBATION Status: Acute Priority: High Current Visit: Yes (3) RSV (respiratory syncytial virus infection) SNOMED Code(s): 35917231 Code(s): B97.4 - RESPIRATORY SYNCYTIAL VIRUS CAUSING DISEASES CLASSD ELSWHR Status: Acute Priority: High Current Visit: Yes (4) Pneumonia SNOMED Code(s): 303232434 Code(s): J18.9 - PNEUMONIA, UNSPECIFIED ORGANISM Status: Acute Priority: High Current Visit: Yes Qualifiers: Pneumonia type: due to unspecified organism Laterality: bilateral Lung location: unspecified part of lung Qualified Code(s): J18.9 - Pneumonia, unspecified organism (5) Congestive heart failure SNOMED Code(s): 40931385 Code(s): I50.9 - HEART FAILURE, UNSPECIFIED Status: Chronic Priority: High Current Visit: Yes (6) Atrial fibrillation SNOMED Code(s): 49786342 Code(s): I48.91 - UNSPECIFIED ATRIAL FIBRILLATION Status: Chronic Priority: Medium Current Visit: No Qualifiers: Atrial fibrillation type: unspecified Qualified Code(s): I48.91 - Unspecified atrial fibrillation (7) Heart murmur SNOMED Code(s): 13125267 Code(s): R01.1 - CARDIAC MURMUR, UNSPECIFIED Status: Chronic Priority: Medium Current Visit: No (8) Laceration of left foot SNOMED Code(s): 158330122 Code(s): S91.312A - LACERATION WITHOUT FOREIGN BODY, LEFT FOOT, INIT ENCNTR Status: Chronic Priority: Low Current Visit: No Qualifiers: Encounter type: sequela Qualified Code(s): S91.312S - Laceration without foreign body, left foot, sequela (9) HTN (hypertension) SNOMED Code(s): 32541456 Code(s): I10 - ESSENTIAL (PRIMARY) HYPERTENSION Status: Chronic Priority: Medium Current Visit: No Qualifiers: Hypertension type: unspecified Qualified Code(s): I10 - Essential (primary) hypertension (10) Thrombocytopenia SNOMED Code(s): 261402821 Code(s): D69.6 - THROMBOCYTOPENIA, UNSPECIFIED Status: Chronic Priority: Medium Current Visit: Yes (11) Elevated d-dimer SNOMED Code(s): 236919993 Code(s): R79.89 - OTHER SPECIFIED ABNORMAL FINDINGS OF BLOOD CHEMISTRY Status: Acute Priority: Medium Current Visit: Yes (12) History of dysphagia SNOMED Code(s): 79969789383473493 Code(s): Z87.19 - PERSONAL HISTORY OF OTHER DISEASES OF THE DIGESTIVE SYSTEM Status: Chronic Priority: Low Current Visit: Yes (13) Pulmonary nodule SNOMED Code(s): 662919277 Code(s): R91.1 - SOLITARY PULMONARY NODULE Status: Chronic Priority: Low Current Visit: Yes - Problem List Review Problem List Initiated/Reviewed/Updated: Yes - My Orders Last 24 Hours: My Active Orders 02/04/21 09:49 PRO B-TYPE NATRIUR PEPT,BNPPRO [CHEM] Routine PROCALCITONIN [REF] Routine 02/04/21 09:50 Intake and Output Strict [RC] ASDIRECTED 02/04/21 09:51 Echo 2D wo Cont [US] Routine 02/04/21 09:52 Furosemide [Lasix] 20 mg IVPUSH ONETIME ONE 02/04/21 14:00 Furosemide [Lasix] 80 mg IVPUSH BIDDIURETIC 02/05/21 05:11 BASIC METABOLIC PANEL,BMP [CHEM] AM CBC WITH AUTO DIFF [HEME] AM CRP [C-REACTIVE PROTEIN] [CHEM] AM MAGNESIUM [CHEM] AM 02/06/21 05:11 BASIC METABOLIC PANEL,BMP [CHEM] AM CBC WITH AUTO DIFF [HEME] AM CRP [C-REACTIVE PROTEIN] [CHEM] AM MAGNESIUM [CHEM] AM 02/07/21 05:11 BASIC METABOLIC PANEL,BMP [CHEM] AM CBC WITH AUTO DIFF [HEME] AM CRP [C-REACTIVE PROTEIN] [CHEM] AM MAGNESIUM [CHEM] AM 02/08/21 05:11 BASIC METABOLIC PANEL,BMP [CHEM] AM CBC WITH AUTO DIFF [HEME] AM CRP [C-REACTIVE PROTEIN] [CHEM] AM MAGNESIUM [CHEM] AM - Assessment Assessment:: 02/04/2021 This is a 70-year-old male mated to the floor for acute hypoxemic respiratory failure and found to be RSV positive. There was a questionable pneumonia on imaging and he was started on azithromycin and Rocephin. He will complete his azithromycin today and will continue Rocephin for a total of 7 days. His CRP today is up to 15 but there is no leukocytosis. We will recheck a procalcitonin as there was an elevation during his stay, although minimal. We have been actively diuresing him and there has not been a very impressive output. Patient reportedly was drinking significant amount of free water and is now on a fluid restriction. We will increase his Lasix dosing to 80 mg twice daily diuretic timing and increase his XAVIER monitoring to strict. He remains on 3 L of oxygen. He states he is not on oxygen at baseline. Echocardiogram was obtained but was very poor imaging. 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 He does report orthopnea and swelling. We will put RAHUL hose on and treat him as a CHF exacerbation. Length of stay likely 1 to 2 days pending continue diuresis and wean of oxygen. - Plan Plan:: Patient is a 70-year-old male with a history of hypertension, COPD, CHF, atrial fibrillation, and chronic back pain who presented to the ER due to worsening shortness of breath. Assessment and plan: Acute hypoxic respiratory failure Etiology likely a combination of RSV infection induced, CHF exacerbation, pneumonia, and COPD Repeat chest x-ray on the showed increasing density within the left upper chest from prior study which may represent an area of pneumonia. Patient has had improvement in his fevers since starting antibiotics. Last high temperature was 100.8 on 01/31 at 0800 hrs. In the ER, he had a SpO2 89% with 6L CTA chest - NO PE; small parenchymal densities within both lower lungs as well as left upper lung Pulse ox Continues on 3L CHF, preserved ejection fraction Murmur 6+ pound weight loss since admission BNP 1924 on admission; recheck today CXR - cardiomegaly with mild pulmonary vascular congestion. Troponin < 0.017 x [address] elevation lasix 80mg po bid is on hold Increased lasix to 80mg iv biddiuretic. Intake and output - strict Follow electrolytes Echocardiogram showed a normal left ejection fraction of 55 to 60%. No mention of diastolic dysfunction. The right ventricle systolic pressure was normal at 32.4 mmHg. Technically difficult study. Suspect normal LV systolic function. Minimal valvular disease. Potassium was supplemented Pneumonia Afebrile last 48 hours CXR on 01/31/2021 showed mild increasing central lung markings possibly due to mild pulmonary vascular congestion. Increasing density within the left upper chest from prior study which may represent an area of pneumonia versus asymmetr ic pulmonary vascular congestion. Normal white count Procalcitonin increased from less than 0.05 to 0.23; re-check influenza A and B negative RSV positive Covid 19 negative. He has been fully vaccinated against covid 19 His fever could result from RSV infection or secondary bacterial pneumonia Rocephin x7 days, azithromycin x5 days Droplet isolation COPD Stable Continue inhalers Atrial fib Heart rate is controlled nebivolol 2.5mg daily Continue Eliquis 5mg bid patient does have thrombocytopenia with platelet count of 90,000. Will follow closely for bleeding. Chronic back pain Home medications include trazodone 50 mg at bedtime and oxycodone/acetaminophen 10-325 mg every 4 hours as needed. I will change it to oxycodone 10 mg oral 6 times daily as needed, trazodone 50 mg at bedtime and Ambien 2.5 mg at bedtime. 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 HTN Continue amlodipine 10mg daily, imdur 60mg daily, nebivolol 2.5mg daily Hydralazine as needed Thrombocytopenia, chronic 101->89-> 87->90-->97-->147 platelets 151 on 07/12/2019 No evidence of bleeding. Will continue his Eliquis but closely monitor. I will hold Eliquis if platelets continue to decrease or bleeding occurs. Monitor Elevation of D-dimer, 0.98 CTA chest - no PE. Patient has been on Eliquis. I would not like to do more work-up Continue Eliquis Hx of dysphagia Speech pathology consultno dysphagia. On mechanical soft because he does not have his dentures. Pulmonary nodule Repeat CT chest in 6 months DVT prophylaxis: Eliquis CODE STATUS: Full Prognosis: Good Length of stay greater than 96 hours due to need for continued diuresis.
[2021-02-04] MEDS ORDERED: Furosemide 20 MG/2 ML VIAL IVPUSH ONE (10:00)
[2021-02-04] MEDS: Acetaminophen 325 MG Tab PO PRN (10:18)
[2021-02-04] MEDS: cefTRIAXone 2 GM in Sodium Chloride 0.9% 100 ML IV SCH (14:35)
[2021-02-04] MEDS: Azithromycin 500 MG in Sodium Chloride 0.9% 250 ML IV SCH (14:36)
[2021-02-04] MEDS: Citalopram 20 MG Tab PO SCH (21:28)
[2021-02-04] MEDS: Doxazosin 2 MG Tab PO SCH (21:28)
[2021-02-04] MEDS: Tamsulosin 0.4 MG Cap.ER PO SCH (21:28)
[2021-02-04] MEDS: amLODIPine 10 MG Tab PO SCH (21:29)
[2021-02-05] MEDS: Albuterol/Ipratropium 3.0-0.5 MG/3 ML Neb Soln NEB SCH ×3 (05:30→20:05)
[2021-02-05] MEDS: Formoterol/Mometasone 200-5 MCG 8.8 GM Inhaler IH SCH ×2 (05:30→20:05)
[2021-02-05] MEDS: Furosemide 100 MG/10 ML SDV IVPUSH SCH ×2 (05:43→13:57)
[2021-02-05] MEDS: Pantoprazole 40 MG Tab.CR PO SCH ×2 (05:43→16:29)
[2021-02-05] MEDS: oxyCODONE 5 MG Tab PO PRN ×3 (06:43→20:42)
--- NOTE | 2021-02-05 08:06 | PCM.PN ---
- General Info Date of Service: 02/05/21 Admission Dx/Problem (Free Text): Admission Diagnosis/Problem Admission Diagnosis/Problem Respiratory failure with hypoxia and hypercapnia Functional Status: Reports: Pain Controlled, Tolerating Diet, Ambulating, Urinating, Incentive Spirometry. Denies: New Symptoms - Review of Systems General: Reports: Weakness. Denies: Fever, Fatigue, Malaise, Chills HEENT: Reports: No Symptoms. Denies: Headaches, Sore Throat Pulmonary: Reports: Shortness of Breath, Cough. Denies: Sputum, Wheezing Cardiovascular: Reports: Dyspnea on Exertion, Edema. Denies: Chest Pain, Palpitations, Lightheadedness Gastrointestinal: Reports: No Symptoms. Denies: Abdominal Pain, Constipation, Diarrhea, Nausea, Vomiting Genitourinary: Reports: No Symptoms. Denies: Pain Musculoskeletal: Reports: No Symptoms Skin: Reports: No Symptoms. Denies: Cyanosis Neurological: Reports: No Symptoms, Difficulty Walking, Weakness. Denies: Confusion, Dizziness, Headache, Numbness, Pre-Existing Deficit, Seizure, Sync ope, Tingling, Trouble Speaking, Gait Disturbance Psychiatric: Reports: No Symptoms - Patient Data Vitals - Most Recent: Last Vital Signs Temp 98.1 F 02/05/21 04:13 Pulse 96 02/05/21 00:36 Resp 18 02/05/21 04:13 BP 129/80 02/05/21 04:13 Pulse Ox 90 L 02/05/21 05:31 Weight - Most Recent: 264 lb 11.2 oz I&O - Last 24 Hours: Intake & Output 02/04/21 02/05/21 02/05/21 22:59 06:59 14:59 Intake Total 1119 200 Output Total 1950 Balance -831 200 Lab Results Last 24 Hours: Laboratory Results - last 24 hr 02/04/21 02/04/21 02/05/21 Range/Units 10:01 10:01 05:14 WBC 7.02 (4.23-9.07) K/mm3 RBC 4.06 L (4.63-6.08) M/mm3 Hgb 12.2 L (13.7-17.5) gm/dl Hct 37.7 L (40.1-51.0) % MCV 92.9 H (79.0-92.2) fl MCH 30.0 (25.7-32.2) pg MCHC 32.4 (32.2-35.5) g/dl RDW Std Deviation 47.0 H (35.1-43.9) fL Plt Count 174 (163-337) K/mm3 MPV 11.6 (9.4-12.3) fl Neut % (Auto) 68.4 H (34.0-67.9) % Lymph % (Auto) 15.5 L (21.8-53.1) % [place] % (Auto) 8.5 (5.3-12.2) % Eos % (Auto) 6.7 (0.8-7.0) Baso % (Auto) 0.6 (0.1-1.2) % Neut # (Auto) 4.80 (1.78-5.38) K/mm3 Lymph # (Auto) 1.09 L (1.32-3.57) K/mm3 [place] # (Auto) 0.60 (0.30-0.82) K/mm3 Eos # (Auto) 0.47 (0.04-0.54) K/mm3 Baso # (Auto) 0.04 (0.01-0.08) K/mm3 Sodium (136-145) mEq/L Potassium (3.5-5.1) mEq/L Chloride (98-107) mEq/L Carbon Dioxide (21-32) mEq/L Anion Gap (5-15) BUN (7-18) mg/dL Creatinine (0.7-1.3) mg/dL Est Cr Clr Drug Dosing mL/min Estimated GFR (MDRD) (>60) mL/min BUN/Creatinine Ratio (14-18) Glucose (70-99) mg/dL Calcium (8.5-10.1) mg/dL Magnesium (1.8-2.4) mg/dL C-Reactive Protein (<1.0) mg/dL NT-Pro-B Natriuret Pep 1490 H (0-125) pg/mL Procalcitonin 0.16 H ng/mL 02/05/21 Range/Units 05:14 WBC (4.23-9.07) K/mm3 RBC (4.63-6.08) M/mm3 Hgb (13.7-17.5) gm/dl Hct (40.1-51.0) % MCV (79.0-92.2) fl MCH (25.7-32.2) pg MCHC (32.2-35.5) g/dl RDW Std Deviation (35.1-43.9) fL Plt Count (163-337) K/mm3 MPV (9.4-12.3) fl Neut % (Auto) (34.0-67.9) % Lymph % (Auto) (21.8-53.1) % [place] % (Auto) (5.3-12.2) % Eos % (Auto) (0.8-7.0) Baso % (Auto) (0.1-1.2) % Neut # (Auto) (1.78-5.38) K/mm3 Lymph # (Auto) (1.32-3.57) K/mm3 [place] # (Auto) (0.30-0.82) K/mm3 Eos # (Auto) (0.04-0.54) K/mm3 Baso # (Auto) (0.01-0.08) K/mm3 Sodium 141 (136-145) mEq/L Potassium 3.7 (3.5-5.1) mEq/L Chloride 104 (98-107) mEq/L Carbon Dioxide 31 (21-32) mEq/L Anion Gap 9.7 (5-15) BUN 14 (7-18) mg/dL Creatinine 1.0 (0.7-1.3) mg/dL Est Cr Clr Drug Dosing 80.98 mL/min Estimated GFR (MDRD) > 60 (>60) mL/min BUN/Creatinine Ratio 14.0 (14-18) Glucose 91 (70-99) mg/dL Calcium 9.0 (8.5-10.1) mg/dL Magnesium 2.1 (1.8-2.4) mg/dL C-Reactive Protein 12.7 H* (<1.0) mg/dL NT-Pro-B Natriuret Pep (0-125) pg/mL Procalcitonin ng/mL Ari Results Last 24 Hours: Microbiology 01/29/21 18:35 Blood Culture - Final Blood - Venous - Lab Draw 01/29/21 17:20 Blood Culture - Final Blood - Venous 01/29/21 14:31 Blood Culture - Final Blood - Venous - Lab Draw 01/29/21 14:25 Blood Culture - Final Blood - Venous Med Orders - Current: Current Medications Acetaminophen (Acetaminophen 325 Mg Tab) 650 mg PO Q6H PRN PRN Reason: Pain (Mild 1-3)/fever Last Admin: 02/04/21 10:18 Dose: 650 mg Documented by: Albuterol/Ipratropium (Albuterol/Ipratropium 3.0-0.5 Mg/3 Ml Neb Soln) 3 ml NEB Q4HRRT PRN PRN Reason: Shortness Of Breath/wheezing Last Admin: 02/03/21 08:59 Dose: 3 ml Documented by: Albuterol/Ipratropium (Albuterol/Ipratropium 3.0-0.5 Mg/3 Ml Neb Soln) 3 ml NEB TIDRT [facility] Last Admin: 02/05/21 05:30 Dose: 3 ml Documented by: Allopurinol (Allopurinol 100 Mg Tab) 100 mg PO DAILY [facility] Last Admin: 02/04/21 08:54 Dose: 100 mg Documented by: Amlodipine Besylate (Amlodipine 10 Mg Tab) 10 mg PO BEDTIME [facility] Last Admin: 02/04/21 21:29 Dose: 10 mg Documented by: Apixaban (Apixaban 5 Mg Tab) 5 mg PO BID [facility] Last Admin: 02/04/21 21:29 Dose: 5 mg Documented by: Aspirin (Aspirin 81 Mg Tab.Ec) 81 mg PO DAILY [facility] Last Admin: 02/04/21 08:54 Dose: 81 mg Documented by: Atorvastatin Calcium (Atorvastatin 20 Mg Tab) 20 mg PO DAILY [facility] Last Admin: 02/04/21 08:53 Dose: 20 mg Documented by: Buspirone HCl (Buspirone 5 Mg Tab) 7.5 mg PO BID [facility] Last Admin: 02/04/21 21:29 Dose: 7.5 mg Documented by: Cholecalciferol (Cholecalciferol (Vitamin D3) 25 Mcg Tab) 50 mcg PO DAILY [facility] Last Admin: 02/04/21 08:53 Dose: 50 mcg Documented by: Citalopram Hydrobromide (Citalopram 20 Mg Tab) 40 mg PO BEDTIME [facility] Last Admin: 02/04/21 21:28 Dose: 40 mg Documented by: Docusate Sodium (Docusate Sodium 100 Mg Cap) 100 mg PO BID PRN PRN Reason: Constipation Doxazosin Mesylate (Doxazosin 2 Mg Tab) 2 mg PO BEDTIME [facility] Last Admin: 02/04/21 21:28 Dose: 2 mg Documented by: Furosemide (Furosemide 100 Mg/10 Ml Sdv) 80 mg IVPUSH BIDDIURETIC [facility] Last Admin: 02/05/21 05:43 Dose: 80 mg Documented by: Guaifenesin (Guaifenesin 600 Mg Tab.Er) 1,200 mg PO BID [facility] Last Admin: 02/04/21 21:29 Dose: 1,200 mg Documented by: Guaifenesin/Dextromethorphan (Guaifenesin/Dextromethorphan 100-10 Mg/5 Ml Soln 5 Ml Cup) 10 ml PO QID PRN PRN Reason: Cough Last Admin: 02/03/21 06:00 Dose: 10 ml Documented by: Hydralazine HCl (Hydralazine 20 Mg/Ml Sdv) 10 mg IVPUSH Q4H PRN PRN Reason: Hypertension Promethazine HCl 12.5 mg/ (Sodium Chloride) 50.5 mls @ 100 mls/hr IV Q6H PRN PRN Reason: Nausea/Vomiting Ceftriaxone Sodium 2 gm/ (Sodium Chloride) 100 mls @ 200 mls/hr IV Q24H [facility] Stop: 02/07/21 13:31 Last Admin: 02/04/21 14:35 Dose: 200 mls/hr Documented by: Isosorbide Mononitrate (Isosorbide Mononitrate 30 Mg Tab.Er) 30 mg PO DAILY [facility] Last Admin: 02/04/21 08:55 Dose: 30 mg Documented by: Levothyroxine Sodium (Levothyroxine 200 Mcg Tab) 200 mcg PO ACBREAKFAST [facility] Last Admin: 02/05/21 05:43 Dose: 200 mcg Documented by: Lubiprostone (Lubiprostone 24 Mcg Cap) 24 mcg PO BID [facility] Last Admin: 02/04/21 21:30 Dose: 24 mcg Documented by: Mometasone Furoate/Formoterol Fumar (Formoterol/Mometasone 200-5 Mcg 8.8 Gm In haler) 2 puff IH BIDRT [facility] Last Admin: 02/05/21 05:30 Dose: 2 puff Documented by: Oxybutynin Chloride (Oxybutynin 5 Mg Tab) 5 mg PO BID [facility] Last Admin: 02/04/21 21:29 Dose: 5 mg Documented by: Oxycodone HCl (Oxycodone 5 Mg Tab) 10 mg PO Q4H PRN PRN Reason: Pain (moderate 4-6) Last Admin: 02/05/21 06:43 Dose: 10 mg Documented by: Pantoprazole Sodium (Pantoprazole 40 Mg Tab.Cr) 40 mg PO BIDAC [facility] Last Admin: 02/05/21 05:43 Dose: 40 mg Documented by: Suvorexant [Belsomra (] 20 Mg Tablet) 0 each PO BEDTIME PRN PRN Reason: Insomnia Potassium Chloride (Potassium Chloride 20 Meq Tab.Er) 20 meq PO DAILY [facility] Last Admin: 02/04/21 08:58 Dose: 20 meq Documented by: Pregabalin (Pregabalin 75 Mg Cap) 150 mg PO TID [facility] Last Admin: 02/04/21 21:28 Dose: 150 mg Documented by: Senna/Docusate Sodium (Docusate Sodium/Sennosides 50-8.6 Mg Tab) 2 tab PO BID PRN PRN Reason: Constipation Sodium Chloride (Sodium Chloride 0.9% 10 Ml Syringe) 10 ml FLUSH ASDIRECTED PRN PRN Reason: Keep Vein Open Last Admin: 01/29/21 14:45 Dose: 10 ml Documented by: Tamsulosin HCl (Tamsulosin 0.4 Mg Cap.Er) 0.4 mg PO BEDTIME [facility] Last Admin: 02/04/21 21:28 Dose: 0.4 mg Documented by: Trazodone HCl (Trazodone 50 Mg Tab) 50 mg PO BEDTIME PRN PRN Reason: insomia Last Admin: 02/02/21 20:49 Dose: 50 mg Documented by: Discontinued Medications Albuterol (Albuterol 0.083% 2.5 Mg/3 Ml Neb Soln) 2.5 mg NEB ONETIME ONE Stop: 01/29/21 16:02 Last Admin: 01/29/21 16:26 Dose: 2.5 mg Documented by: Albuterol/Ipratropium (Albuterol/Ipratropium 3.0-0.5 Mg/3 Ml Neb Soln) 3 ml NEB TIDRT [facility] Allopurinol (Allopurinol 100 Mg Tab) 100 mg PO DAILY [facility] Last Admin: 01/30/21 12:11 Dose: Not Given Documented by: Apixaban (Apixaban 5 Mg Tab) 5 mg PO BID [facility] Last Admin: 01/30/21 12:06 Dose: Not Given Documented by: Aspirin (Aspirin 81 Mg Tab.Ec) 81 mg PO DAILY [facility] Last Admin: 01/30/21 12:06 Dose: Not Given Documented by: Atorvastatin Calcium (Atorvastatin 20 Mg Tab) 20 mg PO DAILY [facility] Last Admin: 01/30/21 12:10 Dose: Not Given Documented by: Buspirone HCl (Buspirone 5 Mg Tab) 7.5 mg PO BID [facility] Last Admin: 01/30/21 12:06 Dose: Not Given Documented by: Carvedilol (Carvedilol 3.125 Mg Tab) 3.125 mg PO BIDMEALS [facility] Last Admin: 01/30/21 12:06 Dose: Not Given Documented by: Cholecalciferol (Cholecalciferol (Vitamin D3) 25 Mcg Tab) 50 mcg PO DAILY [facility] Last Admin: 01/30/21 12:10 Dose: Not Given Documented by: Doxazosin Mesylate (Doxazosin 4 Mg Tab) 4 mg PO BEDTIME [facility] Last Admin: 01/30/21 12:05 Dose: Not Given Documented by: Enoxaparin Sodium (Enoxaparin 40 Mg/0.4 Ml Syringe) 40 mg SUBCUT DAILY [facility] Finasteride (Finasteride 5 Mg Tab) 5 mg PO DAILY [facility] Last Admin: 01/30/21 12:10 Dose: Not Given Documented by: Finasteride (Finasteride 5 Mg Tab) 5 mg PO DAILY [facility] Last Admin: 01/31/21 09:11 Dose: 5 mg Documented by: Furosemide (Furosemide 40 Mg/4 Ml Vial) 40 mg IVPUSH BID [facility] Last Admin: 01/30/21 12:09 Dose: Not Given Documented by: Furosemide (Furosemide 40 Mg/4 Ml Vial) 40 mg IVPUSH BID [facility] Last Admin: 01/31/21 09:14 Dose: 40 mg Documented by: Furosemide (Furosemide 100 Mg/10 Ml Sdv) 60 mg IVPUSH BIDDIURETIC [facility] Last Admin: 02/04/21 05:10 Dose: 60 mg Documented by: Furosemide (Furosemide 20 Mg/2 Ml Vial) 20 mg IVPUSH ONETIME ONE Stop: 02/04/21 10:01 Last Admin: 02/04/21 10:18 Dose: 20 mg Documented by: Guaifenesin (Guaifenesin 600 Mg Tab.Er) 1,200 mg PO BID PRN PRN Reason: Cough Last Admin: 02/01/21 09:22 Dose: 1,200 mg Documented by: Sodium Chloride (Normal Saline) 100 mls @ 60 mls/hr IV ASDIRECTED [facility] Last Admin: 01/29/21 15:50 Dose: 60 mls/hr Documented by: Ceftriaxone Sodium 1 gm/ (Sodium Chloride) 100 mls @ 200 mls/hr IV ONETIME ONE Stop: 01/29/21 16:51 Last Admin: 01/29/21 15:30 Dose: 200 mls/hr Documented by: Ceftriaxone Sodium 2 gm/ (Sodium Chloride) 100 mls @ 200 mls/hr IV Q24H [facility] Azithromycin 500 mg/ Sodium (Chloride) 250 mls @ 250 mls/hr IV Q24H [facility] Sodium Chloride (Normal Saline) 500 mls @ 250 mls/hr IV ONETIME ONE Stop: 01/30/21 00:41 Last Admin: 01/29/21 22:58 Dose: 250 mls/hr Documented by: Sodium Chloride (Normal Saline) Confirm Administered Dose 1,000 mls @ as directed .ROUTE .STK-MED ONE Stop: 01/29/21 22:48 Last Admin: 01/29/21 22:59 Dose: Not Given Documented by: Azithromycin 500 mg/ Sodium (Chloride) 250 mls @ 250 mls/hr IV Q24H [facility] Stop: 02/04/21 14:59 Last Admin: 02/04/21 14:36 Dose: 250 mls/hr Documented by: Iopamidol (Iopamidol 755 Mg/Ml 100 Ml Bottle) 100 ml IVPUSH ONETIME ONE Stop: 01/29/21 15:30 Last Admin: 01/29/21 15:47 Dose: 100 ml Documented by: Isosorbide Mononitrate (Isosorbide Mononitrate 60 Mg Tab.Er) 60 mg PO BEDTIME [facility] Last Admin: 01/30/21 20:45 Dose: 60 mg Documented by: Levothyroxine Sodium (Levothyroxine 25 Mcg Tab) 25 mcg PO DAILY [facility] Morphine Sulfate (Morphine 2 Mg/Ml Syringe) 2 mg IVPUSH Q4H PRN PRN Reason: Pain (severe 7-10) Stop: 01/30/21 16:55 Non-Formulary Medication (Naloxone Hcl [Narcan]) 4 mg NS ASDIRECTED PRN PRN Reason: Opioid Overdose Oxycodone HCl (Oxycodone 5 Mg Tab) 5 mg PO Q6H PRN PRN Reason: Pain (moderate 4-6) Last Admin: 01/30/21 10:14 Dose: 5 mg Documented by: Oxycodone HCl (Oxycodone 5 Mg Tab) 10 mg PO TID PRN PRN Reason: Pain (moderate 4-6) Last Admin: 01/31/21 09:13 Dose: 10 mg Documented by: Polyethylene Glycol (Polyethylene Glycol 3350 Powder 17 Gm Packet) gm PO Q72H [facility] Potassium Chloride (Potassium Chloride 20 Meq Tab.Er) 40 meq PO BID [facility] Stop: 02/02/21 21:01 Last Admin: 02/02/21 20:47 Dose: 40 meq Documented by: Pregabalin (Pregabalin 75 Mg Cap) 150 mg PO TID [facility] Last Admin: 01/30/21 12:10 Dose: Not Given Documented by: Sodium Chloride (Sodium Chloride 0.9% 10 Ml Syringe) 10 ml FLUSH ONETIME PRN PRN Reason: Keep Vein Open Last Admin: 01/29/21 15:47 Dose: 10 ml Documented by: Sodium Phosphate (Phosphorus #1 250 Mg Tab) 250 mg PO QID [facility] Stop: 01/30/21 17:01 Last Admin: 01/30/21 12:10 Dose: Not Given Documented by: Sodium Phosphate (Phosphorus #1 250 Mg Tab) 250 mg PO QID [facility] Stop: 01/30/21 21:01 Last Admin: 01/30/21 20:47 Dose: 250 mg Documented by: Zolpidem Tartrate (Zolpidem 5 Mg Tab) 2.5 mg PO BEDTIME PRN PRN Reason: Insomnia Stop: 02/01/21 21:01 - Exam Quality Assessment: Supplemental Oxygen (3L), DVT Prophylaxis. No: Urine Catheter General: Alert, Oriented, Cooperative, No Acute Distress HEENT: Pupils Equal, Pupils Reactive, Mucous Membr. Moist/[place] Neck: Supple, Trachea Midline Lungs: Normal Respiratory Effort, Decreased Breath Sounds, Rales Cardiovascular: Regular Rate, Regular Rhythm GI/Abdominal Exam: Normal Bowel Sounds, Soft, Non-Tender, No Distention (Male) Exam: Deferred Back Exam: Normal Inspection, Full Range of Motion Extremities: Normal Range of Motion, Non-Tender, Normal Capillary Refill, Pedal Edema (Improved 2+) Skin: Warm, Dry, Intact Neurological: No New Focal Deficit Psy/Mental Status: Alert, Normal Affect, Normal Mood - Patient Data Lab Results Last 24 hrs: Laboratory Results - last 24 hr 02/04/21 02/04/21 02/05/21 Range/Units 10:01 10:01 05:14 WBC 7.02 (4.23-9.07) K/mm3 RBC 4.06 L (4.63-6.08) M/mm3 Hgb 12.2 L (13.7-17.5) gm/dl Hct 37.7 L (40.1-51.0) % MCV 92.9 H (79.0-92.2) fl MCH 30.0 (25.7-32.2) pg MCHC 32.4 (32.2-35.5) g/dl RDW Std Deviation 47.0 H (35.1-43.9) fL Plt Count 174 (163-337) K/mm3 MPV 11.6 (9.4-12.3) fl Neut % (Auto) 68.4 H (34.0-67.9) % Lymph % (Auto) 15.5 L (21.8-53.1) % [place] % (Auto) 8.5 (5.3-12.2) % Eos % (Auto) 6.7 (0.8-7.0) Baso % (Auto) 0.6 (0.1-1.2) % Neut # (Auto) 4.80 (1.78-5.38) K/mm3 Lymph # (Auto) 1.09 L (1.32-3.57) K/mm3 [place] # (Auto) 0.60 (0.30-0.82) K/mm3 Eos # (Auto) 0.47 (0.04-0.54) K/mm3 Baso # (Auto) 0.04 (0.01-0.08) K/mm3 Sodium (136-145) mEq/L Potassium (3.5-5.1) mEq/L Chloride (98-107) mEq/L Carbon Dioxide (21-32) mEq/L Anion Gap (5-15) BUN (7-18) mg/dL Creatinine (0.7-1.3) mg/dL Est Cr Clr Drug Dosing mL/min Estimated GFR (MDRD) (>60) mL/min BUN/Creatinine Ratio (14-18) Glucose (70-99) mg/dL Calcium (8.5-10.1) mg/dL Magnesium (1.8-2.4) mg/dL C-Reactive Protein (<1.0) mg/dL NT-Pro-B Natriuret Pep 1490 H (0-125) pg/mL Procalcitonin 0.16 H ng/mL 02/05/21 Range/Units 05:14 WBC (4.23-9.07) K/mm3 RBC (4.63-6.08) M/mm3 Hgb (13.7-17.5) gm/dl Hct (40.1-51.0) % MCV (79.0-92.2) fl MCH (25.7-32.2) pg MCHC (32.2-35.5) g/dl RDW Std Deviation (35.1-43.9) fL Plt Count (163-337) K/mm3 MPV (9.4-12.3) fl Neut % (Auto) (34.0-67.9) % Lymph % (Auto) (21.8-53.1) % [place] % (Auto) (5.3-12.2) % Eos % (Auto) (0.8-7.0) Baso % (Auto) (0.1-1.2) % Neut # (Auto) (1.78-5.38) K/mm3 Lymph # (Auto) (1.32-3.57) K/mm3 [place] # (Auto) (0.30-0.82) K/mm3 Eos # (Auto) (0.04-0.54) K/mm3 Baso # (Auto) (0.01-0.08) K/mm3 Sodium 141 (136-145) mEq/L Potassium 3.7 (3.5-5.1) mEq/L Chloride 104 (98-107) mEq/L Carbon Dioxide 31 (21-32) mEq/L Anion Gap 9.7 (5-15) BUN 14 (7-18) mg/dL Creatinine 1.0 (0.7-1.3) mg/dL Est Cr Clr Drug Dosing 80.98 mL/min Estimated GFR (MDRD) > 60 (>60) mL/min BUN/Creatinine Ratio 14.0 (14-18) Glucose 91 (70-99) mg/dL Calcium 9.0 (8.5-10.1) mg/dL Magnesium 2.1 (1.8-2.4) mg/dL C-Reactive Protein 12.7 H* (<1.0) mg/dL NT-Pro-B Natriuret Pep (0-125) pg/mL Procalcitonin ng/mL Result Diagrams: 02/05/21 05:14 02/05/21 05:14 Ari Results Last 24 hrs: Microbiology 01/29/21 18:35 Blood Culture - Final Blood - Venous - Lab Draw 01/29/21 17:20 Blood Culture - Final Blood - Venous 01/29/21 14:31 Blood Culture - Final Blood - Venous - Lab Draw 01/29/21 14:25 Blood Culture - Final Blood - Venous Sepsis Event Note - Evaluation Sepsis Screening Result: No Definite Risk - Focused Exam Vital Signs: Vital Signs Temp Pulse Resp BP Pulse Ox Pulse Ox Pulse Ox 02/05/21 05:31 90 L 02/05/21 04:13 98.1 F 18 129/80 02/05/21 04:02 89 L 02/05/21 00:36 97.2 F 96 18 113/70 89 L 02/04/21 21:29 149/93 H 02/04/21 21:28 149/93 H 02/04/21 20:49 90 L 02/04/21 20:24 96.1 F L 61 18 149/93 H 87 L - Problem List & Annotations (1) Acute respiratory failure with hypoxia SNOMED Code(s): 83262100, 838465318 Code(s): J96.01 - ACUTE RESPIRATORY FAILURE WITH HYPOXIA Status: Acute Priority: High Current Visit: Yes (2) COPD exacerbation SNOMED Code(s): 656247919 Code(s): J44.1 - CHRONIC OBSTRUCTIVE PULMONARY DISEASE W (ACUTE) EXACERBATION Status: Acute Priority: High Current Visit: Yes (3) RSV (respiratory syncytial virus infection) SNOMED Code(s): 21832972 Code(s): B97.4 - RESPIRATORY SYNCYTIAL VIRUS CAUSING DISEASES CLASSD ELSWHR Status: Acute Priority: High Current Visit: Yes (4) Pneumonia SNOMED Code(s): 126805647 Code(s): J18.9 - PNEUMONIA, UNSPECIFIED ORGANISM Status: Acute Priority: High Current Visit: Yes Qualifiers: Pneumonia type: due to unspecified organism Laterality: bilateral Lung location: unspecified part of lung Qualified Code(s): J18.9 - Pneumonia, unspecified organism (5) Congestive heart failure SNOMED Code(s): 63895155 Code(s): I50.9 - HEART FAILURE, UNSPECIFIED Status: Chronic Priority: Hig h Current Visit: Yes (6) Atrial fibrillation SNOMED Code(s): 45882600 Code(s): I48.91 - UNSPECIFIED ATRIAL FIBRILLATION Status: Chronic Priority: Medium Current Visit: No Qualifiers: Atrial fibrillation type: unspecified Qualified Code(s): I48.91 - Unspecified atrial fibrillation (7) Heart murmur SNOMED Code(s): 80132755 Code(s): R01.1 - CARDIAC MURMUR, UNSPECIFIED Status: Chronic Priority: Medium Current Visit: No (8) Laceration of left foot SNOMED Code(s): 748748330 Code(s): S91.312A - LACERATION WITHOUT FOREIGN BODY, LEFT FOOT, INIT ENCNTR Status: Chronic Priority: Low Current Visit: No Qualifiers: Encounter type: sequela Qualified Code(s): S91.312S - Laceration without foreign body, left foot, sequela (9) HTN (hypertension) SNOMED Code(s): 57782795 Code(s): I10 - ESSENTIAL (PRIMARY) HYPERTENSION Status: Chronic Priority: Medium Current Visit: No Qualifiers: Hypertension type: unspecified Qualified Code(s): I10 - Essential (primary) hypertension (10) Thrombocytopenia SNOMED Code(s): 857173246 Code(s): D69.6 - THROMBOCYTOPENIA, UNSPECIFIED Status: Chronic Priority: Medium Current Visit: Yes (11) Elevated d-dimer SNOMED Code(s): 074317616 Code(s): R79.89 - OTHER SPECIFIED ABNORMAL FINDINGS OF BLOOD CHEMISTRY Status: Acute Priority: Medium Current Visit: Yes (12) History of dysphagia SNOMED Code(s): 71606308071240366 Code(s): Z87.19 - PERSONAL HISTORY OF OTHER DISEASES OF THE DIGESTIVE SYSTEM Status: Chronic Priority: Low Current Visit: Yes (13) Pulmonary nodule SNOMED Code(s): 376223673 Code(s): R91.1 - SOLITARY PULMONARY NODULE Status: Chronic Priority: Low Current Visit: Yes - Problem List Review Problem List Initiated/Reviewed/Updated: Yes - My Orders Last 24 Hours: My Active Orders 02/04/21 09:50 Intake and Output Strict [RC] ASDIRECTED 02/04/21 10:31 Antiembolic Devices [RC] PER UNIT ROUTINE RAHUL Hose [Antiembolic Hose] [OM.PC] Routine 02/04/21 13:46 Up With Assistance [RC] ASDIRECTED 02/04/21 14:00 Furosemide [Lasix] 80 mg IVPUSH BIDDIURETIC 02/06/21 05:11 BASIC METABOLIC PANEL,BMP [CHEM] AM CBC WITH AUTO DIFF [HEME] AM CRP [C-REACTIVE PROTEIN] [CHEM] AM MAGNESIUM [CHEM] AM 02/07/21 05:11 BASIC METABOLIC PANEL,BMP [CHEM] AM CBC WITH AUTO DIFF [HEME] AM CRP [C-REACTIVE PROTEIN] [CHEM] AM MAGNESIUM [CHEM] AM 02/08/21 05:11 BASIC METABOLIC PANEL,BMP [CHEM] AM CBC WITH AUTO DIFF [HEME] AM CRP [C-REACTIVE PROTEIN] [CHEM] AM MAGNESIUM [CHEM] AM - Assessment Assessment:: 02/04/2021 This is a 70-year-old male admitted to the floor for acute hypoxemic respiratory failure and found to be RSV positive. There was a questionable pneumonia on imaging and he was started on azithromycin and Rocephin. He will complete his azithromycin today and will continue Rocephin for a total of 7 days. His CRP today is up to 15 but there is no leukocytosis. We will recheck a procalcitonin as there was an elevation during his stay, although minimal. We have been actively diuresing him and there has not been a very impressive output. Patient reportedly was drinking significant amount of free water and is now on a fluid restriction. We will increase his Lasix dosing to 80 mg twice daily diuretic timing and increase his XAVIER monitoring to strict. He remains on 3 L of oxygen. He states he is not on oxygen at baseline. Echocardiogram was obtained but was very poor imaging. 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 Salinas. He does report orthopnea and swelling. We will put RAHUL verenice on and treat him as a CHF exacerbation. Length of stay likely 1 to 2 days pending continue diuresis and wean of oxygen. 02/02/2021 70-year-old male admitted to the floor for RSV and questionable pneumonia. He completed azithromycin and will continue 7 days of Rocephin. He is also noted to have rather significant edema we have increase his diuretics to 80 mg twice daily, which has improved his output. He states he is feeling better. He is down 10 pounds from admission. He continues on a 2 L fluid restriction. White count today was 7.02. Hemoglobin is 12.2. Platelet 174,000. Neutrophils are 68.4%. Sodium is 141. Potassium 3.7. Chloride 104. Carbon dioxide 31. Anion gap is 9.7. BUN is 14. Creatinine 1.0. GFR greater than 60. Glucose 91. Ma gnesium 2.1. CRP is 12.7. Procalcitonin yesterday was 0.16 which has improved since his prior procalcitonin. proBNP was 1490, which is improved from 1924 on admission. We will continue diuresis with Lasix and supportive care for his. Length of stay likely 1-2 more days. - Plan Plan:: Patient is a 70-year-old male with a history of hypertension, COPD, CHF, atrial fibrillation, and chronic back pain who presented to the ER due to worsening shortness of breath. Assessment and plan: Acute hypoxic respiratory failure Etiology likely a combination of RSV infection induced, CHF exacerbation, pneumonia, and COPD Repeat chest x-ray on the showed increasing density within the left upper chest from prior study which may represent an area of pneumonia. Patient has had improvement in his fevers since starting antibiotics. Last high temperature was 100.8 on 01/31 at 0800 hrs. In the ER, he had a SpO2 89% with 6L CTA chest - NO PE; small parenchymal densities within both lower lungs as well as left upper lung Pulse ox Continues on 3L CHF, preserved ejection fraction Murmur 10+ pound weight loss since admission BNP 1924 on admission; recheck 1419 CXR - cardiomegaly with mild pulmonary vascular congestion. Troponin < 0.017 x [address] elevation lasix 80mg po bid is on hold Increased lasix to 80mg iv biddiuretic. Intake and output - strict Follow electrolytes Echocardiogram showed a normal left ejection fraction of 55 to 60%. No mention of diastolic dysfunction. The right ventricle systolic pressure was normal at 32.4 mmHg. Technically difficult study. Suspect normal LV systolic function. Minimal valvular disease. Potassium was supplemented Pneumonia Afebrile last 48 hours CXR on 01/31/2021 showed mild increasing central lung markings possibly due to mild pulmonary vascular congestion. Increasing density within the left upper chest from prior study which may represent an area of pneumonia versus asymmetric pulmonary vascular congestion. Normal white count Procalcitonin increased from less than 0.05 to 0.23; re-check 0.16 influenza A and B negative RSV positive Covid 19 negative. He has been fully vaccinated against covid 19 His fever could result from RSV infection or secondary bacterial pneumonia Rocephin x7 days azithromycin x5 days (completed) Droplet isolation COPD Stable Continue inhalers Atrial fib Heart rate is controlled nebivolol 2.5mg daily Continue Eliquis 5mg bid patient does have thrombocytopenia with platelet count of 90,000. Will follow closely for bleeding. Chronic back pain Home medications include trazodone 50 mg at bedtime and oxycodone/acetaminophen 10-325 mg every 4 hours as needed. I will change it to oxycodone 10 mg oral 6 times daily as needed, trazodone 50 mg at bedtime and Ambien 2.5 mg at bedtime. 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 HTN Continue amlodipine 10mg daily, imdur 60mg daily, nebivolol 2.5mg daily Hydralazine as needed Thrombocytopenia, chronic and improved 101->89-> 87->90-->97-->147-->174 platelets 151 on 07/12/2019 No evidence of bleeding. Will continue his Eliquis but closely monitor. I will hold Eliquis if platelets continue to decrease or bleeding occurs. Monitor Elevation of D-dimer, 0.98 CTA chest - no PE. Patient has been on Eliquis. I would not like to do more work-up Continue Eliquis Hx of dysphagia Speech pathology consultno dysphagia. On mechanical soft because he does not have his dentures. Pulmonary nodule Repeat CT chest in 6 months DVT prophylaxis: [place]oj[place] CODE STATUS: Full Prognosis: Good Length of stay greater than 96 hours due to need for continued diuresis.
[2021-02-05] MEDS: Albuterol/Ipratropium 3.0-0.5 MG/3 ML Neb Soln NEB PRN (08:37)
[2021-02-05] MEDS: atorvaSTATin 20 MG Tab PO SCH (09:52)
[2021-02-05] MEDS: busPIRone 5 MG Tab PO SCH ×2 (09:53→20:44)
[2021-02-05] MEDS: Cholecalciferol (Vitamin D3) 25 MCG Tab PO SCH (09:53)
[2021-02-05] MEDS: Apixaban 5 MG Tab PO SCH ×2 (09:54→20:43)
[2021-02-05] MEDS: Allopurinol 100 MG Tab PO SCH (09:54)
[2021-02-05] MEDS: Oxybutynin 5 MG Tab PO SCH ×2 (09:54→20:43)
[2021-02-05] MEDS: Isosorbide Mononitrate 30 MG Tab.ER PO SCH (09:55)
[2021-02-05] MEDS: Potassium Chloride 20 MEQ Tab.ER PO SCH (09:55)
[2021-02-05] MEDS: Aspirin 81 MG Tab.EC PO SCH (09:57)
[2021-02-05] MEDS: Pregabalin 75 MG Cap PO SCH ×3 (09:58→20:43)
[2021-02-05] MEDS: guaiFENesin 600 MG Tab.ER PO SCH ×2 (09:58→20:43)
[2021-02-05] MEDS: Lubiprostone 24 MCG Cap PO SCH ×2 (10:03→20:42)
[2021-02-05] MEDS: cefTRIAXone 2 GM in Sodium Chloride 0.9% 100 ML IV SCH (12:51)
[2021-02-05] MEDS: Doxazosin 2 MG Tab PO SCH (20:43)
[2021-02-05] MEDS: amLODIPine 10 MG Tab PO SCH (20:43)
[2021-02-05] MEDS: Citalopram 20 MG Tab PO SCH (20:43)
[2021-02-05] MEDS: Tamsulosin 0.4 MG Cap.ER PO SCH (20:43)
[2021-02-06] MEDS: Albuterol/Ipratropium 3.0-0.5 MG/3 ML Neb Soln NEB SCH ×3 (06:00→20:10)
[2021-02-06] MEDS: Formoterol/Mometasone 200-5 MCG 8.8 GM Inhaler IH SCH ×2 (06:01→20:10)
[2021-02-06] MEDS: Pantoprazole 40 MG Tab.CR PO SCH ×3 (06:08→15:05)
[2021-02-06] MEDS: Levothyroxine 100 MCG Tab PO SCH (06:09)
[2021-02-06] MEDS: Furosemide 100 MG/10 ML SDV IVPUSH SCH ×2 (06:09→13:09)
--- NOTE | 2021-02-06 06:48 | PCM.PN ---
- General Info Date of Service: 02/06/21 Admission Dx/Problem (Free Text): Admission Diagnosis/Problem Admission Diagnosis/Problem Respiratory failure with hypoxia and hypercapnia Functional Status: Reports: Pain Controlled, Tolerating Diet, Ambulating, Urinating, Incentive Spirometry. Denies: New Symptoms - Review of Systems General: Reports: No Symptoms. Denies: Fever, Weakness, Fatigue, Malaise, Chills HEENT: Reports: No Symptoms. Denies: Headaches, Sore Throat Pulmonary: Reports: Shortness of Breath, Cough, Sputum. Denies: Pleuritic Chest Pain, Wheezing Cardiovascular: Reports: Dyspnea on Exertion, Edema. Denies: Chest Pain, Palpitations, Orthopnea, Lightheadedness Gastrointestinal: Reports: No Symptoms. Denies: Abdominal Pain, Constipation, Diarrhea, Nausea, Vomiting Genitourinary: Reports: No Symptoms. Denies: Pain Musculoskeletal: Reports: No Symptoms. Denies: Leg Pain Skin: Reports: No Symptoms. Denies: Cyanosis Neurological: Reports: No Symptoms. Denies: Confusion, Numbness, Pre-Existing Deficit, Tingling, Difficulty Walking, Weakness, Gait Disturbance Psychiatric: Reports: No Symptoms - Patient Data Vitals - Most Recent: Last Vital Signs Temp 97.0 F 02/06/21 03:18 Pulse 75 02/06/21 03:18 Resp 0 L 02/06/21 03:18 BP 118/63 02/06/21 03:18 Pulse Ox 95 02/06/21 06:20 Weight - Most Recent: 262 lb 8 oz I&O - Last 24 Hours: Intake & Output 02/05/21 02/05/21 02/06/21 14:59 22:59 06:59 Intake Total 665 760 300 Output Total 1000 1000 800 Balance -335 -240 -500 Lab Results Last 24 Hours: Laboratory Results - last 24 hr 02/06/21 02/06/21 Range/Units 05:30 05:30 WBC 6.79 (4.23-9.07) K/mm3 RBC 3.79 L (4.63-6.08) M/mm3 Hgb 11.4 L (13.7-17.5) gm/dl Hct 35.3 L (40.1-51.0) % MCV 93.1 H (79.0-92.2) fl MCH 30.1 (25.7-32.2) pg MCHC 32.3 (32.2-35.5) g/dl RDW Std Deviation 46.4 H (35.1-43.9) fL Plt Count 208 (163-337) K/mm3 MPV 11.4 (9.4-12.3) fl Neut % (Auto) 65.9 (34.0-67.9) % Lymph % (Auto) 16.5 L (21.8-53.1) % Fisher % (Auto) 9.1 (5.3-12.2) % Eos % (Auto) 7.5 H (0.8-7.0) Baso % (Auto) 0.7 (0.1-1.2) % Neut # (Auto) 4.47 (1.78-5.38) K/mm3 Lymph # (Auto) 1.12 L (1.32-3.57) K/mm3 Fisher # (Auto) 0.62 (0.30-0.82) K/mm3 Eos # (Auto) 0.51 (0.04-0.54) K/mm3 Baso # (Auto) 0.05 (0.01-0.08) K/mm3 Sodium 142 (136-145) mEq/L Potassium 3.8 (3.5-5.1) mEq/L Chloride 105 (98-107) mEq/L Carbon Dioxide 30 (21-32) mEq/L Anion Gap 10.8 (5-15) BUN 13 (7-18) mg/dL Creatinine 1.0 (0.7-1.3) mg/dL Est Cr Clr Drug Dosing 80.98 mL/min Estimated GFR (MDRD) > 60 (>60) mL/min BUN/Creatinine Ratio 13.0 L (14-18) Glucose 88 (70-99) mg/dL Calcium 8.8 (8.5-10.1) mg/dL C-Reactive Protein 7.9 H* (<1.0) mg/dL Ari Results Last 24 Hours: Microbiology 01/31/21 13:52 Blood Culture - Final Blood - Venous - Lab Draw 01/31/21 13:40 Blood Culture - Final Blood - Venous Med Orders - Current: Current Medications Acetaminophen (Acetaminophen 325 Mg Tab) 650 mg PO Q6H PRN PRN Reason: Pain (Mild 1-3)/fever Last Admin: 02/04/21 10:18 Dose: 650 mg Documented by: Albuterol/Ipratropium (Albuterol/Ipratropium 3.0-0.5 Mg/3 Ml Neb Soln) 3 ml NEB Q4HRRT PRN PRN Reason: Shortness Of Breath/wheezing Last Admin: 02/05/21 08:37 Dose: 3 ml Documented by: Albuterol/Ipratropium (Albuterol/Ipratropium 3.0-0.5 Mg/3 Ml Neb Soln) 3 ml NEB TIDRT [facility] Last Admin: 02/06/21 06:00 Dose: 3 ml Documented by: Allopurinol (Allopurinol 100 Mg Tab) 100 mg PO DAILY [facility] Last Admin: 02/05/21 09:54 Dose: 100 mg Documented by: Amlodipine Besylate (Amlodipine 10 Mg Tab) 10 mg PO BEDTIME [facility] Last Admin: 02/05/21 20:43 Dose: 10 mg Documented by: Apixaban (Apixaban 5 Mg Tab) 5 mg PO BID [facility] Last Admin: 02/05/21 20:43 Dose: 5 mg Documented by: Aspirin (Aspirin 81 Mg Tab.Ec) 81 mg PO DAILY [facility] Last Admin: 02/05/21 09:57 Dose: 81 mg Documented by: Atorvastatin Calcium (Atorvastatin 20 Mg Tab) 20 mg PO DAILY [facility] Last Admin: 02/05/21 09:52 Dose: 20 mg Documented by: Buspirone HCl (Buspirone 5 Mg Tab) 7.5 mg PO BID [facility] Last Admin: 02/05/21 20:44 Dose: 7.5 mg Documented by: Cholecalciferol (Cholecalciferol (Vitamin D3) 25 Mcg Tab) 50 mcg PO DAILY [facility] Last Admin: 02/05/21 09:53 Dose: 50 mcg Documented by: Citalopram Hydrobromide (Citalopram 20 Mg Tab) 40 mg PO BEDTIME [facility] Last Admin: 02/05/21 20:43 Dose: 40 mg Documented by: Docusate Sodium (Docusate Sodium 100 Mg Cap) 100 mg PO BID PRN PRN Reason: Constipation Doxazosin Mesylate (Doxazosin 2 Mg Tab) 2 mg PO BEDTIME [facility] Last Admin: 02/05/21 20:43 Dose: 2 mg Documented by: Furosemide (Furosemide 100 Mg/10 Ml Sdv) 80 mg IVPUSH BIDDIURETIC [facility] Last Admin: 02/06/21 06:09 Dose: 80 mg Documented by: Guaifenesin (Guaifenesin 600 Mg Tab.Er) 1,200 mg PO BID [facility] Last Admin: 02/05/21 20:43 Dose: 1,200 mg Documented by: Guaifenesin/Dextromethorphan (Guaifenesin/Dextromethorphan 100-10 Mg/5 Ml Soln 5 Ml Cup) 10 ml PO QID PRN PRN Reason: Cough Last Admin: 02/03/21 06:00 Dose: 10 ml Documented by: Hydralazine HCl (Hydralazine 20 Mg/Ml Sdv) 10 mg IVPUSH Q4H PRN PRN Reason: Hypertension Promethazine HCl 12.5 mg/ (Sodium Chloride) 50.5 mls @ 100 mls/hr IV Q6H PRN PRN Reason: Nausea/Vomiting Ceftriaxone Sodium 2 gm/ (Sodium Chloride) 100 mls @ 200 mls/hr IV Q24H [facility] Stop: 02/07/21 13:31 Last Admin: 02/05/21 12:51 Dose: 200 mls/hr Documented by: Isosorbide Mononitrate (Isosorbide Mononitrate 30 Mg Tab.Er) 30 mg PO DAILY [facility] Last Admin: 02/05/21 09:55 Dose: 30 mg Documented by: Levothyroxine Sodium (Levothyroxine 100 Mcg Tab) 200 mcg PO ACBREAKFAST [facility] Last Admin: 02/06/21 06:09 Dose: 200 mcg Documented by: Lubiprostone (Lubiprostone 24 Mcg Cap) 24 mcg PO BID [facility] Last Admin: 02/05/21 20:42 Dose: 24 mcg Documented by: Mometasone Furoate/Formoterol Fumar (Formoterol/Mometasone 200-5 Mcg 8.8 Gm Inhaler) 2 puff IH BIDRT [facility] Last Admin: 02/06/21 06:01 Dose: 2 puff Documented by: Oxybutynin Chloride (Oxybutynin 5 Mg Tab) 5 mg PO BID [facility] Last Admin: 02/05/21 20:43 Dose: 5 mg Documented by: Oxycodone HCl (Oxycodone 5 Mg Tab) 10 mg PO Q4H PRN PRN Reason: Pain (moderate 4-6) Last Admin: 02/05/21 20:42 Dose: 10 mg Documented by: Pantoprazole Sodium (Pantoprazole 40 Mg Tab.Cr) 40 mg PO BIDAC [facility] Last Admin: 02/06/21 06:08 Dose: 40 mg Documented by: Suvorexant [Belsomra (] 20 Mg Tablet) 0 each PO BEDTIME PRN PRN Reason: Insomnia Potassium Chloride (Potassium Chloride 20 Meq Tab.Er) 20 meq PO DAILY [facility] Last Admin: 02/05/21 09:55 Dose: 20 meq Documented by: Pregabalin (Pregabalin 75 Mg Cap) 150 mg PO TID [facility] Last Admin: 02/05/21 20:43 Dose: 150 mg Documented by: Senna/Docusate Sodium (Docusate Sodium/Sennosides 50-8.6 Mg Tab) 2 tab PO BID PRN PRN Reason: Constipation Sodium Chloride (Sodium Chloride 0.9% 10 Ml Syringe) 10 ml FLUSH ASDIRECTED PRN PRN Reason: Keep Vein Open Last Admin: 01/29/21 14:45 Dose: 10 ml Documented by: Tamsulosin HCl (Tamsulosin 0.4 Mg Cap.Er) 0.4 mg PO BEDTIME [facility] Last Admin: 02/05/21 20:43 Dose: 0.4 mg Documented by: Trazodone HCl (Trazodone 50 Mg Tab) 50 mg PO BEDTIME PRN PRN Reason: insomia Last Admin: 02/02/21 20:49 Dose: 50 mg Documented by: Discontinued Medications Albuterol (Albuterol 0.083% 2.5 Mg/3 Ml Neb Soln) 2.5 mg NEB ONETIME ONE Stop: 01/29/21 16:02 Last Admin: 01/29/21 16:26 Dose: 2.5 mg Documented by: Albuterol/Ipratropium (Albuterol/Ipratropium 3.0-0.5 Mg/3 Ml Neb Soln) 3 ml NEB TIDRT [facility] Allopurinol (Allopurinol 100 Mg Tab) 100 mg PO DAILY [facility] Last Admin: 01/30/21 12:11 Dose: Not Given Documented by: Apixaban (Apixaban 5 Mg Tab) 5 mg PO BID [facility] Last Admin: 01/30/21 12:06 Dose: Not Given Documented by: Aspirin (Aspirin 81 Mg Tab.Ec) 81 mg PO DAILY [facility] Last Admin: 01/30/21 12:06 Dose: Not Given Documented by: Atorvastatin Calcium (Atorvastatin 20 Mg Tab) 20 mg PO DAILY [facility] Last Admin: 01/30/21 12:10 Dose: Not Given Documented by: Buspirone HCl (Buspirone 5 Mg Tab) 7.5 mg PO BID [facility] Last Admin: 01/30/21 12:06 Dose: Not Given Documented by: Carvedilol (Carvedilol 3.125 Mg Tab) 3.125 mg PO BIDMEALS [facility] Last Admin: 01/30/21 12:06 Dose: Not Given Documented by: Cholecalciferol (Cholecalciferol (Vitamin D3) 25 Mcg Tab) 50 mcg PO DAILY [facility] Last Admin: 01/30/21 12:10 Dose: Not Given Documented by: Doxazosin Mesylate (Doxazosin 4 Mg Tab) 4 mg PO BEDTIME [facility] Last Admin: 01/30/21 12:05 Dose: Not Given Documented by: Enoxaparin Sodium (Enoxaparin 40 Mg/0.4 Ml Syringe) 40 mg SUBCUT DAILY [facility] Finasteride (Finasteride 5 Mg Tab) 5 mg PO DAILY [facility] Last Admin: 01/30/21 12:10 Dose: Not Given Documented by: Finasteride (Finasteride 5 Mg Tab) 5 mg PO DAILY [facility] Last Admin: 01/31/21 09:11 Dose: 5 mg Documented by: Furosemide (Furosemide 40 Mg/4 Ml Vial) 40 mg IVPUSH BID [facility] Last Admin: 01/30/21 12:09 Dose: Not Given Documented by: Furosemide (Furosemide 40 Mg/4 Ml Vial) 40 mg IVPUSH BID [facility] Last Admin: 01/31/21 09:14 Dose: 40 mg Documented by: Furosemide (Furosemide 100 Mg/10 Ml Sdv) 60 mg IVPUSH BIDDIURETIC [facility] Last Admin: 02/04/21 05:10 Dose: 60 mg Documented by: Furosemide (Furosemide 20 Mg/2 Ml Vial) 20 mg IVPUSH ONETIME ONE Stop: 02/04/21 10:01 Last Admin: 02/04/21 10:18 Dose: 20 mg Documented by: Guaifenesin (Guaifenesin 600 Mg Tab.Er) 1,200 mg PO BID PRN PRN Reason: Cough Last Admin: 02/01/21 09:22 Dose: 1,200 mg Documented by: Sodium Chloride (Normal Saline) 100 mls @ 60 mls/hr IV ASDIRECTED [facility] Last Admin: 01/29/21 15:50 Dose: 60 mls/hr Documented by: Ceftriaxone Sodium 1 gm/ (Sodium Chloride) 100 mls @ 200 mls/hr IV ONETIME ONE Stop: 01/29/21 16:51 Last Admin: 01/29/21 15:30 Dose: 200 mls/hr Documented by: Ceftriaxone Sodium 2 gm/ (Sodium Chloride) 100 mls @ 200 mls/hr IV Q24H [facility] Azithromycin 500 mg/ Sodium (Chloride) 250 mls @ 250 mls/hr IV Q24H [facility] Sodium Chloride (Normal Saline) 500 mls @ 250 mls/hr IV ONETIME ONE Stop: 01/30/21 00:41 Last Admin: 01/29/21 22:58 Dose: 250 mls/hr Documented by: Sodium Chloride (Normal Saline) Confirm Administered Dose 1,000 mls @ as di rected .ROUTE .STK-MED ONE Stop: 01/29/21 22:48 Last Admin: 01/29/21 22:59 Dose: Not Given Documented by: Azithromycin 500 mg/ Sodium (Chloride) 250 mls @ 250 mls/hr IV Q24H [facility] Stop: 02/04/21 14:59 Last Admin: 02/04/21 14:36 Dose: 250 mls/hr Documented by: Iopamidol (Iopamidol 755 Mg/Ml 100 Ml Bottle) 100 ml IVPUSH ONETIME ONE Stop: 01/29/21 15:30 Last Admin: 01/29/21 15:47 Dose: 100 ml Documented by: Isosorbide Mononitrate (Isosorbide Mononitrate 60 Mg Tab.Er) 60 mg PO BEDTIME [facility] Last Admin: 01/30/21 20:45 Dose: 60 mg Documented by: Levothyroxine Sodium (Levothyroxine 200 Mcg Tab) 200 mcg PO ACBREAKFAST [facility] Last Admin: 02/05/21 05:43 Dose: 200 mcg Documented by: Levothyroxine Sodium (Levothyroxine 25 Mcg Tab) 25 mcg PO DAILY [facility] Morphine Sulfate (Morphine 2 Mg/Ml Syringe) 2 mg IVPUSH Q4H PRN PRN Reason: Pain (severe 7-10) Stop: 01/30/21 16:55 Non-Formulary Medication (Naloxone Hcl [Narcan]) 4 mg NS ASDIRECTED PRN PRN Reason: Opioid Overdose Oxycodone HCl (Oxycodone 5 Mg Tab) 5 mg PO Q6H PRN PRN Reason: Pain (moderate 4-6) Last Admin: 01/30/21 10:14 Dose: 5 mg Documented by: Oxycodone HCl (Oxycodone 5 Mg Tab) 10 mg PO TID PRN PRN Reason: Pain (moderate 4-6) Last Admin: 01/31/21 09:13 Dose: 10 mg Documented by: Polyethylene Glycol (Polyethylene Glycol 3350 Powder 17 Gm Packet) gm PO Q72H [facility] Potassium Chloride (Potassium Chloride 20 Meq Tab.Er) 40 meq PO BID [facility] Stop: 02/02/21 21:01 Last Admin: 02/02/21 20:47 Dose: 40 meq Documented by: Pregabalin (Pregabalin 75 Mg Cap) 150 mg PO TID [facility] Last Admin: 01/30/21 12:10 Dose: Not Given Documented by: Sodium Chloride (Sodium Chloride 0.9% 10 Ml Syringe) 10 ml FLUSH ONETIME PRN PRN Reason: Keep Vein Open Last Admin: 01/29/21 15:47 Dose: 10 ml Documented by: Sodium Phosphate (Phosphorus #1 250 Mg Tab) 250 mg PO QID [facility] Stop: 01/30/21 17:01 Last Admin: 01/30/21 12:10 Dose: Not Given Documented by: Sodium Phosphate (Phosphorus #1 250 Mg Tab) 250 mg PO QID [facility] Stop: 01/30/21 21:01 Last Admin: 01/30/21 20:47 Dose: 250 mg Documented by: Zolpidem Tartrate (Zolpidem 5 Mg Tab) 2.5 mg PO BEDTIME PRN PRN Reason: Insomnia Stop: 02/01/21 21:01 - Exam Quality Assessment: Supplemental Oxygen (2L), DVT Prophylaxis. No: Urine Catheter General: Alert, Oriented, Cooperative, No Acute Distress HEENT: Pupils Equal, Pupils Reactive, Mucous Membr. Moist/[place] Neck: Supple, Trachea Midline Lungs: Normal Respiratory Effort, Decreased Breath Sounds, Rales Cardiovascular: Regular Rate, Regular Rhythm, Murmurs GI/Abdominal Exam: Normal Bowel Sounds, Soft, Non-Tender, No Distention (Male) Exam: Deferred Back Exam: Normal Inspection, Full Range of Motion Extremities: Normal Inspection, Normal Range of Motion, Non-Tender, Normal Capillary Refill, Pedal Edema (Improving 1-2+) Skin: Warm, Dry, Intact Wound/Incisions: No Drainage. No: Erythema Neurological: No New Focal Deficit Psy/Mental Status: Alert, Normal Affect, Normal Mood - Patient Data Lab Results Last 24 hrs: Laboratory Results - last 24 hr 02/06/21 02/06/21 Range/Units 05:30 05:30 WBC 6.79 (4.23-9.07) K/mm3 RBC 3.79 L (4.63-6.08) M/mm3 Hgb 11.4 L (13.7-17.5) gm/dl Hct 35.3 L (40.1-51.0) % MCV 93.1 H (79.0-92.2) fl MCH 30.1 (25.7-32.2) pg MCHC 32.3 (32.2-35.5) g/dl RDW Std Deviation 46.4 H (35.1-43.9) fL Plt Count 208 (163-337) K/mm3 MPV 11.4 (9.4-12.3) fl Neut % (Auto) 65.9 (34.0-67.9) % Lymph % (Auto) 16.5 L (21.8-53.1) % Fisher % (Auto) 9.1 (5.3-12.2) % Eos % (Auto) 7.5 H (0.8-7.0) Baso % (Auto) 0.7 (0.1-1.2) % Neut # (Auto) 4.47 (1.78-5.38) K/mm3 Lymph # (Auto) 1.12 L (1.32-3.57) K/mm3 Fisher # (Auto) 0.62 (0.30-0.82) K/mm3 Eos # (Auto) 0.51 (0.04-0.54) K/mm3 Baso # (Auto) 0.05 (0.01-0.08) K/mm3 Sodium 142 (136-145) mEq/L Potassium 3.8 (3.5-5.1) mEq/L Chloride 105 (98-107) mEq/L Carbon Dioxide 30 (21-32) mEq/L Anion Gap 10.8 (5-15) BUN 13 (7-18) mg/dL Creatinine 1.0 (0.7-1.3) mg/dL Est Cr Clr Drug Dosing 80.98 mL/min Estimated GFR (MDRD) > 60 (>60) mL/min BUN/Creatinine Ratio 13.0 L (14-18) Glucose 88 (70-99) mg/dL Calcium 8.8 (8.5-10.1) mg/dL C-Reactive Protein 7.9 H* (<1.0) mg/dL Result Diagrams: 02/06/21 05:30 02/06/21 05:30 Ari Results Last 24 hrs: Microbiology 01/31/21 13:52 Blood Culture - Final Blood - Venous - Lab Draw 01/31/21 13:40 Blood Culture - Final Blood - Venous Sepsis Event Note - Evaluation Sepsis Screening Result: No Definite Risk - Focused Exam Vital Signs: Vital Signs Temp Pulse Resp BP Pulse Ox Pulse Ox 02/06/21 06:20 95 02/06/21 06:01 93 L 02/06/21 03:18 97.0 F 75 0 L 118/63 93 L 02/06/21 00:04 97.9 F 68 18 126/72 02/05/21 20:43 124/80 02/05/21 20:06 94 L 02/05/21 19:17 97.9 F 83 20 124/80 89 L - Problem List & Annotations (1) Acute respiratory failure with hypoxia SNOMED Code(s): 95792324, 139581713 Code(s): J96.01 - ACUTE RESPIRATORY FAILURE WITH HYPOXIA Status: Acute Priority: High Current Visit: Yes (2) COPD exacerbation SNOMED Code(s): 206967766 Code(s): J44.1 - CHRONIC OBSTRUCTIVE PULMONARY DISEASE W (ACUTE) EXACERBATION Status: Acute Priority: High Current Visit: Yes (3) RSV (respiratory syncytial virus infection) SNOMED Code(s): 59320111 Code(s): B97.4 - RESPIRATORY SYNCYTIAL VIRUS CAUSING DISEASES CLASSD ELSWHR Status: Acute Priority: High Current Visit: Yes (4) Pneumonia SNOMED Code(s): 453409100 Code(s): J18.9 - PNEUMONIA, UNSPECIFIED ORGANISM Status: Acute Priority: High Current Visit: Yes Qualifiers: Pneumonia type: due to unspecified organism Laterality: bilateral Lung location: unspecified part of lung Qualified Code(s): J18.9 - Pneumonia, unspecified organism (5) Congestive heart failure SNOMED Code(s): 31088876 Code(s): I50.9 - HEART FAILURE, UNSPECIFIED Status: Chronic Priority: High Current Visit: Yes (6) Atrial fibrillation SNOMED Code(s): 04795939 Code(s): I48.91 - UNSPECIFIED ATRIAL FIBRILLATION Status: Chronic Priority: Medium Current Visit: No Qualifiers: Atrial fibrillation type: unspecified Qualified Code(s): I48.91 - U nspecified atrial fibrillation (7) Heart murmur SNOMED Code(s): 71492623 Code(s): R01.1 - CARDIAC MURMUR, UNSPECIFIED Status: Chronic Priority: Medium Current Visit: No (8) Laceration of left foot SNOMED Code(s): 924821187 Code(s): S91.312A - LACERATION WITHOUT FOREIGN BODY, LEFT FOOT, INIT ENCNTR Status: Chronic Priority: Low Current Visit: No Qualifiers: Encounter type: sequela Qualified Code(s): S91.312S - Laceration without foreign body, left foot, sequela (9) HTN (hypertension) SNOMED Code(s): 34924959 Code(s): I10 - ESSENTIAL (PRIMARY) HYPERTENSION Status: Chronic Priority: Medium Current Visit: No Qualifiers: Hypertension type: unspecified Qualified Code(s): I10 - Essential (primary) hypertension (10) Thrombocytopenia SNOMED Code(s): 388633838 Code(s): D69.6 - THROMBOCYTOPENIA, UNSPECIFIED Status: Chronic Priority: Medium Current Visit: Yes (11) Elevated d-dimer SNOMED Code(s): 025474189 Code(s): R79.89 - OTHER SPECIFIED ABNORMAL FINDINGS OF BLOOD CHEMISTRY Status: Acute Priority: Medium Current Visit: Yes (12) History of dysphagia SNOMED Code(s): 03551999277924414 Code(s): Z87.19 - PERSONAL HISTORY OF OTHER DISEASES OF THE DIGESTIVE SYSTEM Status: Chronic Priority: Low Current Visit: Yes (13) Pulmonary nodule SNOMED Code(s): 990370265 Code(s): R91.1 - SOLITARY PULMONARY NODULE Status: Chronic Priority: Low Current Visit: Yes - Problem List Review Problem List Initiated/Reviewed/Updated: Yes - My Orders Last 24 Hours: My Active Orders 02/07/21 05:11 BASIC METABOLIC PANEL,BMP [CHEM] AM CBC WITH AUTO DIFF [HEME] AM CRP [C-REACTIVE PROTEIN] [CHEM] AM 02/08/21 05:11 BASIC METABOLIC PANEL,BMP [CHEM] AM CBC WITH AUTO DIFF [HEME] AM CRP [C-REACTIVE PROTEIN] [CHEM] AM - Assessment Assessment:: 02/04/2021 This is a 70-year-old male admitted to the floor for acute hypoxemic respiratory failure and found to be RSV positive. There was a questionable pneumonia on i maging and he was started on azithromycin and Rocephin. He will complete his azithromycin today and will continue Rocephin for a total of 7 days. His CRP today is up to 15 but there is no leukocytosis. We will recheck a procalcitonin as there was an elevation during his stay, although minimal. We have been actively diuresing him and there has not been a very impressive output. Patient reportedly was drinking significant amount of free water and is now on a fluid restriction. We will increase his Lasix dosing to 80 mg twice daily diuretic timing and increase his XAVIER monitoring to strict. He remains on 3 L of oxygen. He states he is not on oxygen at baseline. Echocardiogram was obtained but was very poor imaging. 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 He does report orthopnea and swelling. We will put RAHUL hose on and treat him as a CHF exacerbation. Length of stay likely 1 to 2 days pending continue diuresis and wean of oxygen. 02/05/2021 70-year-old male admitted to the floor for RSV and questionable pneumonia. He completed azithromycin and will continue 7 days of Rocephin. He is also noted to have rather significant edema we have increase his diuretics to 80 mg twice daily, which has improved his output. He states he is feeling better. He is down 10 pounds from admission. He continues on a 2 L fluid restriction. White count today was 7.02. Hemoglobin is 12.2. Platelet 174,000. Neutrophils are 68.4%. Sodium is 141. Potassium 3.7. Chloride 104. Carbon dioxide 31. Anion gap is 9.7. BUN is 14. Creatinine 1.0. GFR greater than 60. Glucose 91. Magnesium 2.1. CRP is 12.7. Procalcitonin yesterday was 0.16 which has improved since his prior procalcitonin. proBNP was 1490, which is improved from 192 on admission. We will continue diuresis with Lasix and supportive care for his. Length of stay likely 1-2 more days. 02/06/2021 This is a 70-year-old male mated to the floor for acute hypoxemic respiratory failure and RSV. He also had a questionable pneumonia which was treated with azithromycin and he continues on Rocephin. This will stop after 7 days of tr eatment. Therapy saw him and stated he is at baseline. I will continue to evaluate. He continues on 80 mg Lasix twice daily and continues to diurese. He is down over 12 pounds from admission. Continues with 2 L fluid restriction. Labs today show WBC of 6.79. Hemoglobin 11.4. Platelet 208,000. Neutrophils are normal at 65.9. Sodium is 142. Potassium is 3.8. Chloride 105. Carbon dioxide 30. Anion gap is 10.8. BUN is 13. Creatinine is 1.0. GFR is greater than 60. CRP is down to 7.9. We will discontinue continuous pulse oximetry but continue telemetry as we are diuresing. We will pulse ox per protocol with vital signs. Length of stay likely 1 to 2 days pending oxygen improvements and continued diuresis. - Plan Plan:: Patient is a 70-year-old male with a history of hypertension, COPD, CHF, atrial fibrillation, and chronic back pain who presented to the ER due to worsening shortness of breath. Assessment and plan: Acute hypoxic respiratory failure Etiology likely a combination of RSV infection induced, CHF exacerbation, pneumonia, and COPD Repeat chest x-ray on the showed increasing density within the left upper chest from prior study which may represent an area of pneumonia. Patient has had improvement in his fevers since starting antibiotics. Last high temperature was 100.8 on 01/31 at 0800 hrs. In the ER, he had a SpO2 89% with 6L CTA chest - NO PE; small parenchymal densities within both lower lungs as well as left upper lung Pulse ox Continues on 2L CHF, preserved ejection fraction Murmur 12+ pound weight loss since admission BNP 1924 on admission; recheck 1419 CXR - cardiomegaly with mild pulmonary vascular congestion. Troponin < 0.017 x [address] elevation lasix 80mg po bid is on hold Increased lasix to 80mg iv biddiuretic. Intake and output - strict Follow electrolytes Echocardiogram showed a normal left ejection fraction of 55 to 60%. No mention of diastolic dysfunction. The right ventricle systolic pressure was normal at 32.4 mmHg. Technically difficult study. Suspect normal LV systolic function. Minimal valvular disease. Potassium was supplemented Pneumonia Afebrile last 48 hours CXR on 01/31/2021 showed mild increasing central lung markings possibly due to mild pulmonary vascular congestion. Increasing density within the left upper chest from prior study which may represent an area of pneumonia versus asymmetric pulmonary vascular congestion. Normal white count Procalcitonin increased from less than 0.05 to 0.23; re-check 0.16 influenza A and B negative RSV positive Covid 19 negative. He has been fully vaccinated against covid 19 His fever could result from RSV infection or secondary bacterial pneumonia Rocephin x7 days azithromycin x5 days (completed) Droplet isolation COPD Stable Continue inhalers Atrial fib Heart rate is controlled nebivolol 2.5mg daily Continue Eliquis 5mg bid patient does have thrombocytopenia with platelet count of 90,000. Will follow closely for bleeding. Chronic back pain Home medications include trazodone 50 mg at bedtime and oxycodone/acetaminophen 10-325 mg every 4 hours as needed. I will change it to oxycodone 10 mg oral 6 times daily as needed, trazodone 50 mg at bedtime and Ambien 2.5 mg at bedtime. 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 HTN Continue amlodipine 10mg daily, imdur 60mg daily, nebivolol 2.5mg daily Hydralazine as needed Thrombocytopenia, Resolved 101->89-> 87->90-->97-->147-->174-->208 platelets 151 on 07/12/2019 No evidence of bleeding. Will continue his Eliquis but closely monitor. I will hold Eliquis if platelets continue to decrease or bleeding occurs. Monitor Elevation of D-dimer, 0.98 CTA chest - no PE. Patient has been on Eliquis. I would not like to do more work-up Continue Geovanni Hx of dysphagia Speech pathology consultno dysphagia. On mechanical soft because he does not have his dentures. Pulmonary nodule Repeat CT chest in 6 months DVT prophylaxis: Geovanni CODE STATUS: Full Prognosis: Good. Hopeful for discharge in next 1 to 2 days. Length of stay greater than 96 hours due to need for continued diuresis.
[2021-02-06] MEDS: Albuterol/Ipratropium 3.0-0.5 MG/3 ML Neb Soln NEB PRN (08:16)
[2021-02-06] MEDS: Allopurinol 100 MG Tab PO SCH (08:58)
[2021-02-06] MEDS: Oxybutynin 5 MG Tab PO SCH ×2 (08:58→20:35)
[2021-02-06] MEDS: Isosorbide Mononitrate 30 MG Tab.ER PO SCH (08:58)
[2021-02-06] MEDS: atorvaSTATin 20 MG Tab PO SCH (08:58)
[2021-02-06] MEDS: Potassium Chloride 20 MEQ Tab.ER PO SCH (08:58)
[2021-02-06] MEDS: Cholecalciferol (Vitamin D3) 25 MCG Tab PO SCH (08:59)
[2021-02-06] MEDS: guaiFENesin 600 MG Tab.ER PO SCH ×2 (08:59→20:35)
[2021-02-06] MEDS: Aspirin 81 MG Tab.EC PO SCH (08:59)
[2021-02-06] MEDS: Apixaban 5 MG Tab PO SCH ×2 (08:59→20:34)
[2021-02-06] MEDS: Pregabalin 75 MG Cap PO SCH ×3 (08:59→20:35)
[2021-02-06] MEDS: busPIRone 5 MG Tab PO SCH ×2 (08:59→20:35)
[2021-02-06] MEDS: Lubiprostone 24 MCG Cap PO SCH ×2 (09:03→21:00)
[2021-02-06] MEDS: oxyCODONE 5 MG Tab PO PRN ×3 (09:05→20:40)
[2021-02-06] MEDS: cefTRIAXone 2 GM in Sodium Chloride 0.9% 100 ML IV SCH (13:12)
[2021-02-06] MEDS: Doxazosin 2 MG Tab PO SCH (20:31)
[2021-02-06] MEDS: amLODIPine 10 MG Tab PO SCH (20:34)
[2021-02-06] MEDS: Citalopram 20 MG Tab PO SCH (20:34)
[2021-02-06] MEDS: Tamsulosin 0.4 MG Cap.ER PO SCH (20:35)
[2021-02-07] MEDS: Levothyroxine 100 MCG Tab PO SCH (05:48)
[2021-02-07] MEDS: Pantoprazole 40 MG Tab.CR PO SCH ×2 (05:48→15:41)
[2021-02-07] MEDS: oxyCODONE 5 MG Tab PO PRN ×3 (05:48→20:17)
[2021-02-07] MEDS: Furosemide 100 MG/10 ML SDV IVPUSH SCH ×2 (05:49→13:57)
[2021-02-07] MEDS: Albuterol/Ipratropium 3.0-0.5 MG/3 ML Neb Soln NEB SCH ×3 (05:58→20:34)
[2021-02-07] MEDS: Formoterol/Mometasone 200-5 MCG 8.8 GM Inhaler IH SCH ×2 (05:58→20:34)
--- NOTE | 2021-02-07 07:43 | PCM.PN ---
- General Info Date of Service: 02/07/21 Admission Dx/Problem (Free Text): Admission Diagnosis/Problem Admission Diagnosis/Problem Respiratory failure with hypoxia and hypercapnia Subjective Update: The patient is a 70-year-old gentleman who was admitted to acute hospitalization on January 29, 2021 due to worsening shortness of breath. In the emergency department the patient was found to be positive for respiratory syncytial virus. Patient today says that he is feeling much better. The patient has been tolerating his diet. He has no other complaints today. Functional Status: Reports: Pain Controlled, Tolerating Diet. Denies: New Symptoms - Review of Systems General: Reports: No Symptoms HEENT: Reports: No Symptoms Pulmonary: Reports: Cough Cardiovascular: Reports: No Symptoms Gastrointestinal: Reports: No Symptoms Genitourinary: Reports: No Symptoms Musculoskeletal: Reports: No Symptoms Skin: Reports: No Symptoms Neurological: Reports: No Symptoms Psychiatric: Reports: No Symptoms - Patient Data Vitals - Most Recent: Last Vital Signs Temp 36.6 C 02/07/21 03:22 Pulse 56 L 02/07/21 03:22 Resp 20 02/07/21 03:22 BP 119/61 02/07/21 03:22 Pulse Ox 90 L 02/07/21 05:59 Weight - Most Recent: 118.132 kg I&O - Last 24 Hours: Intake & Output 02/06/21 02/07/21 02/07/21 22:59 06:59 14:59 Intake Total 770 300 Output Total 1000 250 Balance -230 50 Med Orders - Current: Current Medications Acetaminophen (Acetaminophen 325 Mg Tab) 650 mg PO Q6H PRN PRN Reason: Pain (Mild 1-3)/fever Last Admin: 02/04/21 10:18 Dose: 650 mg Documented by: Albuterol/Ipratropium (Albuterol/Ipratropium 3.0-0.5 Mg/3 Ml Neb Soln) 3 ml NEB Q4HRRT PRN PRN Reason: Shortness Of Breath/wheezing Last Admin: 02/06/21 08:16 Dose: 3 ml Documented by: Albuterol/Ipratropium (Albuterol/Ipratropium 3.0-0.5 Mg/3 Ml Neb Soln) 3 ml NEB TIDRT BLAYNE Last Admin: 02/07/21 05:58 Dose: 3 ml Documented by: Allopurinol (Allopurinol 100 Mg Tab) 100 mg PO DAILY [facility] Last Admin: 02/06/21 08:58 Dose: 100 mg Documented by: Amlodipine Besylate (Amlodipine 10 Mg Tab) 10 mg PO BEDTIME [facility] Last Admin: 02/06/21 20:34 Dose: 10 mg Documented by: Apixaban (Apixaban 5 Mg Tab) 5 mg PO BID [facility] Last Admin: 02/06/21 20:34 Dose: 5 mg Documented by: Aspirin (Aspirin 81 Mg Tab.Ec) 81 mg PO DAILY [facility] Last Admin: 02/06/21 08:59 Dose: 81 mg Documented by: Atorvastatin Calcium (Atorvastatin 20 Mg Tab) 20 mg PO DAILY [facility] Last Admin: 02/06/21 08:58 Dose: 20 mg Documented by: Buspirone HCl (Buspirone 5 Mg Tab) 7.5 mg PO BID [facility] Last Admin: 02/06/21 20:35 Dose: 7.5 mg Documented by: Cholecalciferol (Cholecalciferol (Vitamin D3) 25 Mcg Tab) 50 mcg PO DAILY [facility] Last Admin: 02/06/21 08:59 Dose: 50 mcg Documented by: Citalopram Hydrobromide (Citalopram 20 Mg Tab) 40 mg PO BEDTIME [facility] Last Admin: 02/06/21 20:34 Dose: 40 mg Documented by: Docusate Sodium (Docusate Sodium 100 Mg Cap) 100 mg PO BID PRN PRN Reason: Constipation Doxazosin Mesylate (Doxazosin 2 Mg Tab) 2 mg PO BEDTIME [facility] Last Admin: 02/06/21 20:31 Dose: 2 mg Documented by: Furosemide (Furosemide 100 Mg/10 Ml Sdv) 80 mg IVPUSH BIDDIURETIC [facility] Last Admin: 02/07/21 05:49 Dose: 80 mg Documented by: Guaifenesin (Guaifenesin 600 Mg Tab.Er) 1,200 mg PO BID [facility] Last Admin: 02/06/21 20:35 Dose: 1,200 mg Documented by: Guaifenesin/Dextromethorphan (Guaifenesin/Dextromethorphan 100-10 Mg/5 Ml Soln 5 Ml Cup) 10 ml PO QID PRN PRN Reason: Cough Last Admin: 02/03/21 06:00 Dose: 10 ml Documented by: Hydralazine HCl (Hydralazine 20 Mg/Ml Sdv) 10 mg IVPUSH Q4H PRN PRN Reason: Hypertension Promethazine HCl 12.5 mg/ (Sodium Chloride) 50.5 mls @ 100 mls/hr IV Q6H PRN PRN Reason: Nausea/Vomiting Ceftriaxone Sodium 2 gm/ (Sodium Chloride) 100 mls @ 200 mls/hr IV Q24H [facility] Stop: 02/07/21 13:31 Last Admin: 02/06/21 13:12 Dose: 200 mls/hr Documented by: Isosorbide Mononitrate (Isosorbide Mononitrate 30 Mg Tab.Er) 30 mg PO DAILY [facility] Last Admin: 02/06/21 08:58 Dose: 30 mg Documented by: Levothyroxine Sodium (Levothyroxine 100 Mcg Tab) 200 mcg PO ACBREAKFAST [facility] Last Admin: 02/07/21 05:48 Dose: 200 mcg Documented by: Lubiprostone (Lubiprostone 24 Mcg Cap) 24 mcg PO BID [facility] Last Admin: 02/06/21 21:00 Dose: 24 mcg Documented by: Mometasone Furoate/Formoterol Fumar (Formoterol/Mometasone 200-5 Mcg 8.8 Gm Inhaler) 2 puff IH BIDRT [facility] Last Admin: 02/07/21 05:58 Dose: 2 puff Documented by: Oxybutynin Chloride (Oxybutynin 5 Mg Tab) 5 mg PO BID [facility] Last Admin: 02/06/21 20:35 Dose: 5 mg Documented by: Oxycodone HCl (Oxycodone 5 Mg Tab) 10 mg PO Q4H PRN PRN Reason: Pain (moderate 4-6) Last Admin: 02/07/21 05:48 Dose: 10 mg Documented by: Pantoprazole Sodium (Pantoprazole 40 Mg Tab.Cr) 40 mg PO BIDAC [facility] Last Admin: 02/07/21 05:48 Dose: 40 mg Documented by: Suvorexant [Belsomra (] 20 Mg Tablet) 0 each PO BEDTIME PRN PRN Reason: Insomnia Potassium Chloride (Potassium Chloride 20 Meq Tab.Er) 20 meq PO DAILY [facility] Last Admin: 02/06/21 08:58 Dose: 20 meq Documented by: Pregabalin (Pregabalin 75 Mg Cap) 150 mg PO TID [facility] Last Admin: 02/06/21 20:35 Dose: 150 mg Documented by: Senna/Docusate Sodium (Docusate Sodium/Sennosides 50-8.6 Mg Tab) 2 tab PO BID PRN PRN Reason: Constipation Last Admin: 02/06/21 21:00 Dose: 2 tab Documented by: Sodium Chloride (Sodium Chloride 0.9% 10 Ml Syringe) 10 ml FLUSH ASDIRECTED PRN PRN Reason: Keep Vein Open Last Admin: 01/29/21 14:45 Dose: 10 ml Documented by: Tamsulosin HCl (Tamsulosin 0.4 Mg Cap.Er) 0.4 mg PO BEDTIME [facility] Last Admin: 02/06/21 20:35 Dose: 0.4 mg Documented by: Trazodone HCl (Trazodone 50 Mg Tab) 50 mg PO BEDTIME PRN PRN Reason: insomia Last Admin: 02/02/21 20:49 Dose: 50 mg Documented by: Discontinued Medications Albuterol (Albuterol 0.083% 2.5 Mg/3 Ml Neb Soln) 2.5 mg NEB ONETIME ONE Stop: 01/29/21 16:02 Last Admin: 01/29/21 16:26 Dose: 2.5 mg Documented by: Albuterol/Ipratropium (Albuterol/Ipratropium 3.0-0.5 Mg/3 Ml Neb Soln) 3 ml NEB TIDRT [facility] Allopurinol (Allopurinol 100 Mg Tab) 100 mg PO DAILY [facility] Last Admin: 01/30/21 12:11 Dose: Not Given Documented by: Apixaban (Apixaban 5 Mg Tab) 5 mg PO BID [facility] Last Admin: 01/30/21 12:06 Dose: Not Given Documented by: Aspirin (Aspirin 81 Mg Tab.Ec) 81 mg PO DAILY [facility] Last Admin: 01/30/21 12:06 Dose: Not Given Documented by: Atorvastatin Calcium (Atorvastatin 20 Mg Tab) 20 mg PO DAILY [facility] Last Admin: 01/30/21 12:10 Dose: Not Given Documented by: Buspirone HCl (Buspirone 5 Mg Tab) 7.5 mg PO BID [facility] Last Admin: 01/30/21 12:06 Dose: Not Given Documented by: Carvedilol (Carvedilol 3.125 Mg Tab) 3.125 mg PO BIDMEALS [facility] Last Admin: 01/30/21 12:06 Dose: Not Given Documented by: Cholecalciferol (Cholecalciferol (Vitamin D3) 25 Mcg Tab) 50 mcg PO DAILY [facility] Last Admin: 01/30/21 12:10 Dose: Not Given Documented by: Doxazosin Mesylate (Doxazosin 4 Mg Tab) 4 mg PO BEDTIME [facility] Last Admin: 01/30/21 12:05 Dose: Not Given Documented by: Enoxaparin Sodium (Enoxaparin 40 Mg/0.4 Ml Syringe) 40 mg SUBCUT DAILY [facility] Finasteride (Finasteride 5 Mg Tab) 5 mg PO DAILY [facility] Last Admin: 01/30/21 12:10 Dose: Not Given Documented by: Finasteride (Finasteride 5 Mg Tab) 5 mg PO DAILY [facility] Last Admin: 01/31/21 09:11 Dose: 5 mg Documented by: Furosemide (Furosemide 40 Mg/4 Ml Vial) 40 mg IVPUSH BID [facility] Last Admin: 01/30/21 12:09 Dose: Not Given Documented by: Furosemide (Furosemide 40 Mg/4 Ml Vial) 40 mg IVPUSH BID [facility] Last Admin: 01/31/21 09:14 Dose: 40 mg Documented by: Furosemide (Furosemide 100 Mg/10 Ml Sdv) 60 mg IVPUSH BIDDIURETIC [facility] Last Admin: 02/04/21 05:10 Dose: 60 mg Documented by: Furosemide (Furosemide 20 Mg/2 Ml Vial) 20 mg IVPUSH ONETIME ONE Stop: 02/04/21 10:01 Last Admin: 02/04/21 10:18 Dose: 20 mg Documented by: Guaifenesin (Guaifenesin 600 Mg Tab.Er) 1,200 mg PO BID PRN PRN Reason: Cough Last Admin: 02/01/21 09:22 Dose: 1,200 mg Documented by: Sodium Chloride (Normal Saline) 100 mls @ 60 mls/hr IV ASDIRECTED [facility] Last Admin: 01/29/21 15:50 Dose: 60 mls/hr Documented by: Ceftriaxone Sodium 1 gm/ (Sodium Chloride) 100 mls @ 200 mls/hr IV ONETIME ONE Stop: 01/29/21 16:51 Last Admin: 01/29/21 15:30 Dose: 200 mls/hr Documented by: Ceftriaxone Sodium 2 gm/ (Sodium Chloride) 100 mls @ 200 mls/hr IV Q24H [facility] Azithromycin 500 mg/ Sodium (Chloride) 250 mls @ 250 mls/hr IV Q24H [facility] Sodium Chloride (Normal Saline) 500 mls @ 250 mls/hr IV ONETIME ONE Stop: 01/30/21 00:41 Last Admin: 01/29/21 22:58 Dose: 250 mls/hr Documented by: Sodium Chloride (Normal Saline) Confirm Administered Dose 1,000 mls @ as directe d .ROUTE .STK-MED ONE Stop: 01/29/21 22:48 Last Admin: 01/29/21 22:59 Dose: Not Given Documented by: Azithromycin 500 mg/ Sodium (Chloride) 250 mls @ 250 mls/hr IV Q24H [facility] Stop: 02/04/21 14:59 Last Admin: 02/04/21 14:36 Dose: 250 mls/hr Documented by: Iopamidol (Iopamidol 755 Mg/Ml 100 Ml Bottle) 100 ml IVPUSH ONETIME ONE Stop: 01/29/21 15:30 Last Admin: 01/29/21 15:47 Dose: 100 ml Documented by: Isosorbide Mononitrate (Isosorbide Mononitrate 60 Mg Tab.Er) 60 mg PO BEDTIME [facility] Last Admin: 01/30/21 20:45 Dose: 60 mg Documented by: Levothyroxine Sodium (Levothyroxine 200 Mcg Tab) 200 mcg PO ACBREAKFAST [facility] Last Admin: 02/05/21 05:43 Dose: 200 mcg Documented by: Levothyroxine Sodium (Levothyroxine 25 Mcg Tab) 25 mcg PO DAILY [facility] Morphine Sulfate (Morphine 2 Mg/Ml Syringe) 2 mg IVPUSH Q4H PRN PRN Reason: Pain (severe 7-10) Stop: 01/30/21 16:55 Non-Formulary Medication (Naloxone Hcl [Narcan]) 4 mg NS ASDIRECTED PRN PRN Reason: Opioid Overdose Oxycodone HCl (Oxycodone 5 Mg Tab) 5 mg PO Q6H PRN PRN Reason: Pain (moderate 4-6) Last Admin: 01/30/21 10:14 Dose: 5 mg Documented by: Oxycodone HCl (Oxycodone 5 Mg Tab) 10 mg PO TID PRN PRN Reason: Pain (moderate 4-6) Last Admin: 01/31/21 09:13 Dose: 10 mg Documented by: Polyethylene Glycol (Polyethylene Glycol 3350 Powder 17 Gm Packet) gm PO Q72H [facility] Potassium Chloride (Potassium Chloride 20 Meq Tab.Er) 40 meq PO BID [facility] Stop: 02/02/21 21:01 Last Admin: 02/02/21 20:47 Dose: 40 meq Documented by: Pregabalin (Pregabalin 75 Mg Cap) 150 mg PO TID [facility] Last Admin: 01/30/21 12:10 Dose: Not Given Documented by: Sodium Chloride (Sodium Chloride 0.9% 10 Ml Syringe) 10 ml FLUSH ONETIME PRN PRN Reason: Keep Vein Open Last Admin: 01/29/21 15:47 Dose: 10 ml Documented by: Sodium Phosphate (Phosphorus #1 250 Mg Tab) 250 mg PO QID [facility] Stop: 01/30/21 17:01 Last Admin: 01/30/21 12:10 Dose: Not Given Documented by: Sodium Phosphate (Phosphorus #1 250 Mg Tab) 250 mg PO QID [facility] Stop: 01/30/21 21:01 Last Admin: 01/30/21 20:47 Dose: 250 mg Documented by: Zolpidem Tartrate (Zolpidem 5 Mg Tab) 2.5 mg PO BEDTIME PRN PRN Reason: Insomnia Stop: 02/01/21 21:01 - Exam Quality Assessment: Supplemental Oxygen, DVT Prophylaxis (On Eliquis) General: Alert, Oriented, Cooperative, No Acute Distress HEENT: Pupils Equal, Pupils Reactive, EOMI Neck: Supple, Trachea Midline Lungs: Normal Respiratory Effort, Rales Cardiovascular: Regular Rate, Irregular Rhythm GI/Abdominal Exam: Normal Bowel Sounds, Soft, Non-Tender, No Distention (Male) Exam: Deferred Back Exam: Normal Inspection, Full Range of Motion Extremities: Normal Inspection, Normal Range of Motion, No Pedal Edema Skin: Warm, Dry, Intact Neurological: No New Focal Deficit, Normal Gait, Normal Speech Psy/Mental Status: Alert, Normal Affect, Normal Mood - Patient Data Result Diagrams: 02/07/21 07:59 02/07/21 07:59 Sepsis Event Note - Evaluation Sepsis Screening Result: No Definite Risk - Focused Exam Vital Signs: Vital Signs Temp Temp Pulse Resp BP Pulse Ox Pulse Ox 02/07/21 05:59 90 L 02/07/21 03:22 36.6 C 56 L 20 119/61 91 L 02/07/21 01:00 36.6 C 02/07/21 00:58 75 18 100/52 L 99 02/06/21 20:34 120/68 02/06/21 20:31 120/68 02/06/21 20:28 36.4 C 76 18 120/68 91 L 02/06/21 20:11 93 L - Problem List & Annotations (1) Acute respiratory failure with hypoxia SNOMED Code(s): 05427444, 465779365 Code(s): J96.01 - ACUTE RESPIRATORY FAILURE WITH HYPOXIA Status: Acute Priority: High Current Visit: Yes (2) RSV (respiratory syncytial virus infection) SNOMED Code(s): 85016383 Code(s): B97.4 - RESPIRATORY SYNCYTIAL VIRUS CAUSING DISEASES CLASSD ELSWHR Status: Acute Priority: High Current Visit: Yes (3) Atrial fibrillation SNOMED Code(s): 91919094 Code(s): I48.91 - UNSPECIFIED ATRIAL FIBRILLATION Status: Chronic Priority: Medium Current Visit: Yes Qualifiers: Atrial fibrillation type: unspecified Qualified Code(s): I48.91 - Unspecified atrial fibrillation - Problem List Review Problem List Initiated/Reviewed/Updated: Yes - Assessment Assessment:: 02/04/2021 This is a 70-year-old male admitted to the floor for acute hypoxemic respiratory failure and found to be RSV positive. There was a questionable pneumonia on imaging and he was started on azithromycin and Rocephin. He will complete his azithromycin today and will continue Rocephin for a total of 7 days. His CRP today is up to 15 but there is no leukocytosis. We will recheck a procalcitonin as there was an elevation during his stay, although minimal. We have been actively diuresing him and there has not been a very impressive output. Patient reportedly was drinking significant amount of free water and is now on a fluid restriction. We will increase his Lasix dosing to 80 mg twice daily diuretic timing and increase his XAVIER monitoring to strict. He remains on 3 L of oxygen. He states he is not on oxygen at baseline. Echocardiogram was obtained but was very poor imaging. We will try to obtain old records from his [employer], Dr. Salinas. He does report orthopnea and swelling. We will put RAHUL hose on and treat him as a CHF exacerbation. Length of stay likely 1 to 2 days pending continue diuresis and wean of oxygen. 02/05/2021 70-year-old male admitted to the floor for RSV and questionable pneumonia. He completed azithromycin and will continue 7 days of Rocephin. He is also noted to have rather significant edema we have increase his diuretics to 80 mg twice daily, which has improved his output. He states he is feeling better. He is down 10 pounds from admission. He continues on a 2 L fluid restriction. White count today was 7.02. Hemoglobin is 12.2. Platelet 174,000. Neutrophils are 68.4%. Sodium is 141. Potassium 3.7. Chloride 104. Carbon dioxide 31. Anion gap is 9.7. BUN is 14. Creatinine 1.0. GFR greater than 60. Glucose 91. Magnesium 2.1. CRP is 12.7. Procalcitonin yesterday was 0.16 which has improved since his prior procalcitonin. proBNP was 1490, which is improved from 1924 on admission. We will continue diuresis with Lasix and supportive care for his. Length of stay likely 1-2 more days. 02/06/2021 This is a 70-year-old male mated to the floor for acute hypoxemic respiratory failure and RSV. He also had a questionable pneumonia which was treated with azithromycin and he continues on Rocephin. This will stop after 7 days of treatment. Therapy saw him and stated he is at baseline. I will continue to evaluate. He continues on 80 mg Lasix twice daily and continues to diurese. He is down over 12 pounds from admission. Continues with 2 L fluid restriction. Labs today show WBC of 6.79. Hemoglobin 11.4. Platelet 208,000. Neutrophils are normal at 65.9. Sodium is 142. Potassium is 3.8. Chloride 105. Carbon di oxide 30. Anion gap is 10.8. BUN is 13. Creatinine is 1.0. GFR is greater than 60. CRP is down to 7.9. We will discontinue continuous pulse oximetry but continue telemetry as we are diuresing. We will pulse ox per protocol with vital signs. Length of stay likely 1 to 2 days pending oxygen improvements and continued diuresis. 02/07/2021 The patient is a 70-year-old gentleman who was admitted secondary to acute respiratory failure due to respiratory syncytial virus. The patient is currently anticoagulated due to his atrial fibrillation with the use of the Eliquis. Patient also has heart failure and has been diuresed. The patient is also is taking isosorbide and for him this will be continued. The patient will have his oxygen supply to keep his saturations around 92%. The patient will likely need to have oxygen when able to go home. He will likely be appropriate for discharge in 1 to 2 days. He has been encouraged to ambulate. The patient was instructed in the use of the incentive spirometer. - Plan Plan:: Patient is a 70-year-old male with a history of hypertension, COPD, CHF, atrial fibrillation, and chronic back pain who presented to the ER due to worsening shortness of breath. Assessment and plan: Acute hypoxic respiratory failure Etiology likely a combination of RSV infection induced, CHF exacerbation, pneumonia, and COPD Repeat chest x-ray on the showed increasing density within the left upper chest from prior study which may represent an area of pneumonia. Patient has had improvement in his fevers since starting antibiotics. Last high temperature was 100.8 on 01/31 at 0800 hrs. In the ER, he had a SpO2 89% with 6L CTA chest - NO PE; small parenchymal densities within both lower lungs as well as left upper lung Pulse ox Continues on 2L CHF, preserved ejection fraction Murmur 12+ pound weight loss since admission BNP 1924 on admission; recheck 1419 CXR - cardiomegaly with mild pulmonary vascular congestion. Troponin < 0.017 x [address] elevation lasix 80mg po bid is on hold Increased lasix to 80mg iv biddiuretic. Intake and output - strict Follow electrolytes Echocardiogram showed a normal left ejection fraction of 55 to 60%. No mention of diastolic dysfunction. The right ventricle systolic pressure was normal at 32.4 mmHg. Technically difficult study. Suspect normal LV systolic function. Minimal valvular disease. Potassium was supplemented Pneumonia Afebrile last 48 hours CXR on 01/31/2021 showed mild increasing central lung markings possibly due to mild pulmonary vascular congestion. Increasing density within the left upper chest from prior study which may represent an area of pneumonia versus asymmetric pulmonary vascular congestion. Normal white count Procalcitonin increased from less than 0.05 to 0.23; re-check 0.16 influenza A and B negative RSV positive Covid 19 negative. He has been fully vaccinated against covid 19 His fever could result from RSV infection or secondary bacterial pneumonia Rocephin x7 days azithromycin x5 days (completed) Droplet isolation COPD Stable Continue inhalers Atrial fib Heart rate is controlled nebivolol 2.5mg daily Continue Eliquis 5mg bid patient does have thrombocytopenia with platelet count of 90,000. Will follow closely for bleeding. Chronic back pain Home medications include trazodone 50 mg at bedtime and oxycodone/acetaminophen 10-325 mg every 4 hours as needed. I will change it to oxycodone 10 mg oral 6 times daily as needed, trazodone 50 mg at bedtime and Ambien 2.5 mg at bedtime. 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 HTN Continue amlodipine 10mg daily, imdur 60mg daily, nebivolol 2.5mg daily Hydralazine as needed Thrombocytopenia, Resolved 101->89-> 87->90-->97-->147-->174-->208 platelets 151 on 07/12/2019 No evidence of bleeding. Will continue his Eliquis but closely monitor. I will hold Eliquis if platelets continue to decrease or bleeding occurs. Monitor Elevation of D-dimer, 0.98 CTA chest - no PE. Patient has been on Eliquis. I would not like to do more work-up Continue Eliquis Hx of dysphagia Speech pathology consultno dysphagia. On mechanical soft because he does not have his dentures. Pulmonary nodule Repeat CT chest in 6 months DVT prophylaxis: Eliquis CODE STATUS: Full Prognosis: Good. Hopeful for discharge in next 1 to 2 days. Length of stay greater than 96 hours due to need for continued diuresis.
[2021-02-07] MEDS: Lubiprostone 24 MCG Cap PO SCH ×2 (08:27→20:19)
[2021-02-07] MEDS: atorvaSTATin 20 MG Tab PO SCH (08:28)
[2021-02-07] MEDS: Cholecalciferol (Vitamin D3) 25 MCG Tab PO SCH (08:28)
[2021-02-07] MEDS: Aspirin 81 MG Tab.EC PO SCH (08:28)
[2021-02-07] MEDS: Potassium Chloride 20 MEQ Tab.ER PO SCH (08:29)
[2021-02-07] MEDS: Isosorbide Mononitrate 30 MG Tab.ER PO SCH (08:29)
[2021-02-07] MEDS: Oxybutynin 5 MG Tab PO SCH ×2 (08:29→20:18)
[2021-02-07] MEDS: Pregabalin 75 MG Cap PO SCH ×3 (08:30→20:18)
[2021-02-07] MEDS: busPIRone 5 MG Tab PO SCH ×2 (08:30→20:18)
[2021-02-07] MEDS: guaiFENesin 600 MG Tab.ER PO SCH ×2 (08:30→20:18)
[2021-02-07] MEDS: Allopurinol 100 MG Tab PO SCH (08:31)
[2021-02-07] MEDS: Apixaban 5 MG Tab PO SCH ×2 (08:31→20:17)
[2021-02-07] MEDS: cefTRIAXone 2 GM in Sodium Chloride 0.9% 100 ML IV SCH (13:15)
[2021-02-07] MEDS: Tamsulosin 0.4 MG Cap.ER PO SCH (20:17)
[2021-02-07] MEDS: Citalopram 20 MG Tab PO SCH (20:17)
[2021-02-07] MEDS: Doxazosin 2 MG Tab PO SCH (20:17)
[2021-02-07] MEDS: amLODIPine 10 MG Tab PO SCH (20:17)
[2021-02-08] MEDS: Furosemide 100 MG/10 ML SDV IVPUSH SCH ×2 (05:54→14:47)
[2021-02-08] MEDS: Pantoprazole 40 MG Tab.CR PO SCH ×2 (05:55→16:00)
[2021-02-08] MEDS: Levothyroxine 100 MCG Tab PO SCH (05:55)
[2021-02-08] MEDS: Albuterol/Ipratropium 3.0-0.5 MG/3 ML Neb Soln NEB SCH ×3 (06:06→20:28)
[2021-02-08] MEDS: Formoterol/Mometasone 200-5 MCG 8.8 GM Inhaler IH SCH ×2 (06:06→20:28)
--- NOTE | 2021-02-08 07:46 | PCM.PN ---
<Dinesh Strauss - Last Filed: 02/08/21 10:40> - General Info Date of Service: 02/08/21 Admission Dx/Problem (Free Text): Admission Diagnosis/Problem Admission Diagnosis/Problem Respiratory failure with hypoxia and hypercapnia Functional Status: Reports: Pain Controlled, Tolerating Diet, Ambulating, Urinating, Incentive Spirometry. Denies: New Symptoms - Review of Systems General: Reports: No Symptoms. Denies: Fever, Weakness, Fatigue, Malaise, Chills HEENT: Reports: No Symptoms. Denies: Headaches, Sore Throat Pulmonary: Reports: Cough, Sputum. Denies: Shortness of Breath, Wheezing Cardiovascular: Reports: Dyspnea on Exertion, Edema (Greatly improved). Denies: Chest Pain, Palpitations Gastrointestinal: Reports: No Symptoms. Denies: Abdominal Pain, Constipation, Diarrhea, Nausea, Vomiting Genitourinary: Reports: No Symptoms. Denies: Pain Musculoskeletal: Reports: No Symptoms Skin: Reports: No Symptoms Neurological: Reports: Difficulty Walking (improving ). Denies: Confusion, Dizziness, Headache, Numbness, Pre-Existing Deficit, Seizure, Syncope, Tingling, Tremors, Trouble Speaking Psychiatric: Reports: No Symptoms - Patient Data Vitals - Most Recent: Last Vital Signs Temp 97.7 F 02/08/21 04:47 Pulse 58 L 02/08/21 04:47 Resp 12 02/08/21 04:47 BP 103/61 02/08/21 04:47 Pulse Ox 90 L 02/08/21 06:07 Weight - Most Recent: 118.297 kg I&O - Last 24 Hours: Intake & Output 02/07/21 02/08/21 02/08/21 22:59 06:59 14:59 Intake Total 6108 811 7529 Output Total 300 575 Balance 1172 -175 1550 Lab Results Last 24 Hours: Laboratory Results - last 24 hr 02/07/21 02/07/21 02/08/21 Range/Units 07:59 07:59 05:58 WBC 7.40 7.19 (4.23-9.07) K/mm3 RBC 4.28 L 4.05 L (4.63-6.08) M/mm3 Hgb 12.9 L D 12.2 L (13.7-17.5) gm/dl Hct 40.1 37.9 L (40.1-51.0) % MCV 93.7 H 93.6 H (79.0-92.2) fl MCH 30.1 30.1 (25.7-32.2) pg MCHC 32.2 32.2 (32.2-35.5) g/dl RDW Std Deviation 47.2 H 47.2 H (35.1-43.9) fL Plt Count 247 244 (163-337) K/mm3 MPV 10.9 11.1 (9.4-12.3) fl Neut % (Auto) 63.1 63.3 (34.0-67.9) % Lymph % (Auto) 20.1 L 20.2 L (21.8-53.1) % [place] % (Auto) 9.3 9.2 (5.3-12.2) % Eos % (Auto) 6.2 6.0 (0.8-7.0) Baso % (Auto) 0.8 0.7 (0.1-1.2) % Neut # (Auto) 4.66 4.56 (1.78-5.38) K/mm3 Lymph # (Auto) 1.49 1.45 (1.32-3.57) K/mm3 [place] # (Auto) 0.69 0.66 (0.30-0.82) K/mm3 Eos # (Auto) 0.46 0.43 (0.04-0.54) K/mm3 Baso # (Auto) 0.06 0.05 (0.01-0.08) K/mm3 Sodium 140 (136-145) mEq/L Potassium 3.9 (3.5-5.1) mEq/L Chloride 101 (98-107) mEq/L Carbon Dioxide 30 (21-32) mEq/L Anion Gap 12.9 (5-15) BUN 14 (7-18) mg/dL Creatinine 1.2 (0.7-1.3) mg/dL Est Cr Clr Drug Dosing 67.48 mL/min Estimated GFR (MDRD) 60 (>60) mL/min BUN/Creatinine Ratio 11.7 L (14-18) Glucose 93 (70-99) mg/dL Calcium 9.9 (8.5-10.1) mg/dL C-Reactive Protein 4.6 H* (<1.0) mg/dL 02/08/21 Range/Units 05:58 WBC (4.23-9.07) K/mm3 RBC (4.63-6.08) M/mm3 Hgb (13.7-17.5) gm/dl Hct (40.1-51.0) % MCV (79.0-92.2) fl MCH (25.7-32.2) pg MCHC (32.2-35.5) g/dl RDW Std Deviation (35.1-43.9) fL Plt Count (163-337) K/mm3 MPV (9.4-12.3) fl Neut % (Auto) (34.0-67.9) % Lymph % (Auto) (21.8-53.1) % [place] % (Auto) (5.3-12.2) % Eos % (Auto) (0.8-7.0) Baso % (Auto) (0.1-1.2) % Neut # (Auto) (1.78-5.38) K/mm3 Lymph # (Auto) (1.32-3.57) K/mm3 [place] # (Auto) (0.30-0.82) K/mm3 Eos # (Auto) (0.04-0.54) K/mm3 Baso # (Auto) (0.01-0.08) K/mm3 Sodium 142 (136-145) mEq/L Potassium 4.2 (3.5-5.1) mEq/L Chloride 104 (98-107) mEq/L Carbon Dioxide 30 (21-32) mEq/L Anion Gap 12.2 (5-15) BUN 14 (7-18) mg/dL Creatinine 1.1 (0.7-1.3) mg/dL Est Cr Clr Drug Dosing 73.62 mL/min Estimated GFR (MDRD) > 60 (>60) mL/min BUN/Creatinine Ratio 12.7 L (14-18) Glucose 88 (70-99) mg/dL Calcium 9.2 (8.5-10.1) mg/dL C-Reactive Protein 2.4 H* (<1.0) mg/dL Med Orders - Current: Current Medications Acetaminophen (Acetaminophen 325 Mg Tab) 650 mg PO Q6H PRN PRN Reason: Pain (Mild 1-3)/fever Last Admin: 02/04/21 10:18 Dose: 650 mg Documented by: Albuterol/Ipratropium (Albuterol/Ipratropium 3.0-0.5 Mg/3 Ml Neb Soln) 3 ml NEB Q4HRRT PRN PRN Reason: Shortness Of Breath/wheezing Last Admin: 02/06/21 08:16 Dose: 3 ml Documented by: Albuterol/Ipratropium (Albuterol/Ipratropium 3.0-0.5 Mg/3 Ml Neb Soln) 3 ml NEB TIDRT [facility] Last Admin: 02/08/21 06:06 Dose: 3 ml Documented by: Allopurinol (Allopurinol 100 Mg Tab) 100 mg PO DAILY [facility] Last Admin: 02/07/21 08:31 Dose: 100 mg Documented by: Amlodipine Besylate (Amlodipine 10 Mg Tab) 10 mg PO BEDTIME [facility] Last Admin: 02/07/21 20:17 Dose: 10 mg Documented by: Apixaban (Apixaban 5 Mg Tab) 5 mg PO BID [facility] Last Admin: 02/07/21 20:17 Dose: 5 mg Documented by: Aspirin (Aspirin 81 Mg Tab.Ec) 81 mg PO DAILY [facility] Last Admin: 02/07/21 08:28 Dose: 81 mg Documented by: Atorvastatin Calcium (Atorvastatin 20 Mg Tab) 20 mg PO DAILY [facility] Last Admin: 02/07/21 08:28 Dose: 20 mg Documented by: Buspirone HCl (Buspirone 5 Mg Tab) 7.5 mg PO BID [facility] Last Admin: 02/07/21 20:18 Dose: 7.5 mg Documented by: Cholecalciferol (Cholecalciferol (Vitamin D3) 25 Mcg Tab) 50 mcg PO DAILY [facility] Last Admin: 02/07/21 08:28 Dose: 50 mcg Documented by: Citalopram Hydrobromide (Citalopram 20 Mg Tab) 40 mg PO BEDTIME [facility] Last Admin: 02/07/21 20:17 Dose: 40 mg Documented by: Docusate Sodium (Docusate Sodium 100 Mg Cap) 100 mg PO BID PRN PRN Reason: Constipation Last Admin: 02/07/21 07:57 Dose: 100 mg Documented by: Doxazosin Mesylate (Doxazosin 2 Mg Tab) 2 mg PO BEDTIME [facility] Last Admin: 02/07/21 20:17 Dose: 2 mg Documented by: Furosemide (Furosemide 100 Mg/10 Ml Sdv) 80 mg IVPUSH BIDDIURETIC [facility] Last Admin: 02/08/21 05:54 Dose: 80 mg Documented by: Guaifenesin (Guaifenesin 600 Mg Tab.Er) 1,200 mg PO BID [facility] Last Admin: 02/07/21 20:18 Dose: 1,200 mg Documented by: Guaifenesin/Dextromethorphan (Guaifenesin/Dextromethorphan 100-10 Mg/5 Ml Soln 5 Ml Cup) 10 ml PO QID PRN PRN Reason: Cough Last Admin: 02/03/21 06:00 Dose: 10 ml Documented by: Hydralazine HCl (Hydralazine 20 Mg/Ml Sdv) 10 mg IVPUSH Q4H PRN PRN Reason: Hypertension Promethazine HCl 12.5 mg/ (Sodium Chloride) 50.5 mls @ 100 mls/hr IV Q6H PRN PRN Reason: Nausea/Vomiting Isosorbide Mononitrate (Isosorbide Mononitrate 30 Mg Tab.Er) 30 mg PO DAILY [facility] Last Admin: 02/07/21 08:29 Dose: 30 mg Documented by: Levothyroxine Sodium (Levothyroxine 100 Mcg Tab) 200 mcg PO ACBREAKFAST [facility] Last Admin: 02/08/21 05:55 Dose: 200 mcg Documented by: Lubiprostone (Lubiprostone 24 Mcg Cap) 24 mcg PO BID [facility] Last Admin: 02/07/21 20:19 Dose: 24 mcg Documented by: Mometasone Furoate/Formoterol Fumar (Formoterol/Mometasone 200-5 Mcg 8.8 Gm Inhaler) 2 puff IH BIDRT [facility] Last Admin: 02/08/21 06:06 Dose: 2 puff Documented by: Oxybutynin Chloride (Oxybutynin 5 Mg Tab) 5 mg PO BID [facility] Last Admin: 02/07/21 20:18 Dose: 5 mg Documented by: Oxycodone HCl (Oxycodone 5 Mg Tab) 10 mg PO Q4H PRN PRN Reason: Pain (moderate 4-6) Last Admin: 02/07/21 20:17 Dose: 10 mg Documented by: Pantoprazole Sodium (Pantoprazole 40 Mg Tab.Cr) 40 mg PO BIDAC [facility] Last Admin: 02/08/21 05:55 Dose: 40 mg Documented by: Suvorexant [Belsomra (] 20 Mg Tablet) 0 each PO BEDTIME PRN PRN Reason: Insomnia Potassium Chloride (Potassium Chloride 20 Meq Tab.Er) 20 meq PO DAILY [facility] Last Admin: 02/07/21 08:29 Dose: 20 meq Documented by: Pregabalin (Pregabalin 75 Mg Cap) 150 mg PO TID [facility] Last Admin: 02/07/21 20:18 Dose: 150 mg Documented by: Senna/Docusate Sodium (Docusate Sodium/Sennosides 50-8.6 Mg Tab) 2 tab PO BID PRN PRN Reason: Constipation Last Admin: 02/06/21 21:00 Dose: 2 tab Documented by: Sodium Chloride (Sodium Chloride 0.9% 10 Ml Syringe) 10 ml FLUSH ASDIRECTED PRN PRN Reason: Keep Vein Open Last Admin: 01/29/21 14:45 Dose: 10 ml Documented by: Tamsulosin HCl (Tamsulosin 0.4 Mg Cap.Er) 0.4 mg PO BEDTIME [facility] Last Admin: 02/07/21 20:17 Dose: 0.4 mg Documented by: Trazodone HCl (Trazodone 50 Mg Tab) 50 mg PO BEDTIME PRN PRN Reason: insomia Last Admin: 02/02/21 20:49 Dose: 50 mg Documented by: Discontinued Medications Albuterol (Albuterol 0.083% 2.5 Mg/3 Ml Neb Soln) 2.5 mg NEB ONETIME ONE Stop: 01/29/21 16:02 Last Admin: 01/29/21 16:26 Dose: 2.5 mg Documented by: Albuterol/Ipratropium (Albuterol/Ipratropium 3.0-0.5 Mg/3 Ml Neb Soln) 3 ml NEB TIDRT [facility] Allopurinol (Allopurinol 100 Mg Tab) 100 mg PO DAILY [facility] Last Admin: 01/30/21 12:11 Dose: Not Given Documented by: Apixaban (Apixaban 5 Mg Tab) 5 mg PO BID [facility] Last Admin: 01/30/21 12:06 Dose: Not Given Documented by: Aspirin (Aspirin 81 Mg Tab.Ec) 81 mg PO DAILY [facility] Last Admin: 01/30/21 12:06 Dose: Not Given Documented by: Atorvastatin Calcium (Atorvastatin 20 Mg Tab) 20 mg PO DAILY [facility] Last Admin: 01/30/21 12:10 Dose: Not Given Documented by: Buspirone HCl (Buspirone 5 Mg Tab) 7.5 mg PO BID [facility] Last Admin: 01/30/21 12:06 Dose: Not Given Documented by: Carvedilol (Carvedilol 3.125 Mg Tab) 3.125 mg PO BIDMEALS [facility] Last Admin: 01/30/21 12:06 Dose: Not Given Documented by: Cholecalciferol (Cholecalciferol (Vitamin D3) 25 Mcg Tab) 50 mcg PO DAILY [facility] Last Admin: 01/30/21 12:10 Dose: Not Given Documented by: Doxazosin Mesylate (Doxazosin 4 Mg Tab) 4 mg PO BEDTIME [facility] Last Admin: 01/30/21 12:05 Dose: Not Given Documented by: Enoxaparin Sodium (Enoxaparin 40 Mg/0.4 Ml Syringe) 40 mg SUBCUT DAILY [facility] Finasteride (Finasteride 5 Mg Tab) 5 mg PO DAILY [facility] Last Admin: 01/30/21 12:10 Dose: Not Given Documented by: Finasteride (Finasteride 5 Mg Tab) 5 mg PO DAILY [facility] Last Admin: 01/31/21 09:11 Dose: 5 mg Documented by: Furosemide (Furosemide 40 Mg/4 Ml Vial) 40 mg IVPUSH BID [facility] Last Admin: 01/30/21 12:09 Dose: Not Given Documented by: Furosemide (Furosemide 40 Mg/4 Ml Vial) 40 mg IVPUSH BID [facility] Last Admin: 01/31/21 09:14 Dose: 40 mg Documented by: Furosemide (Furosemide 100 Mg/10 Ml Sdv) 60 mg IVPUSH BIDDIURETIC [facility] Last Admin: 02/04/21 05:10 Dose: 60 mg Documented by: Furosemide (Furosemide 20 Mg/2 Ml Vial) 20 mg IVPUSH ONETIME ONE Stop: 02/04/21 10:01 Last Admin: 02/04/21 10:18 Dose: 20 mg Documented by: Guaifenesin (Guaifenesin 600 Mg Tab.Er) 1,200 mg PO BID PRN PRN Reason: Cough Last Admin: 02/01/21 09:22 Dose: 1,200 mg Documented by: Sodium Chloride (Normal Saline) 100 mls @ 60 mls/hr IV ASDIRECTED [facility] Last Admin: 01/29/21 15:50 Dose: 60 mls/hr Documented by: Ceftriaxone Sodium 1 gm/ (Sodium Chloride) 100 mls @ 200 mls/hr IV ONETIME ONE Stop: 01/29/21 16:51 Last Admin: 01/29/21 15:30 Dose: 200 mls/hr Documented by: Ceftriaxone Sodium 2 gm/ (Sodium Chloride) 100 mls @ 200 mls/hr IV Q24H [facility] Azithromycin 500 mg/ Sodium (Chloride) 250 mls @ 250 mls/hr IV Q24H [facility] Sodium Chloride (Normal Saline) 500 mls @ 250 mls/hr IV ONETIME ONE Stop: 01/30/21 00:41 Last Admin: 01/29/21 22:58 Dose: 250 mls/hr Documented by: Sodium Chloride (Normal Saline) Confirm Administered Dose 1,000 mls @ as directed .ROUTE .STK-MED ONE Stop: 01/29/21 22:48 Last Admin: 01/29/21 22:59 Dose: Not Given Documented by: Ceftriaxone Sodium 2 gm/ (Sodium Chloride) 100 mls @ 200 mls/hr IV Q24H [facility] Stop: 02/07/21 13:31 Last Admin: 02/07/21 13:15 Dose: 200 mls/hr Documented by: Azithromycin 500 mg/ Sodium (Chloride) 250 mls @ 250 mls/hr IV Q24H [facility] Stop: 02/04/21 14:59 Last Admin: 02/04/21 14:36 Dose: 250 mls/hr Documented by: Iopamidol (Iopamidol 755 Mg/Ml 100 Ml Bottle) 100 ml IVPUSH ONETIME ONE Stop: 01/29/21 15:30 Last Admin: 01/29/21 15:47 Dose: 100 ml Documented by: Isosorbide Mononitrate (Isosorbide Mononitrate 60 Mg Tab.Er) 60 mg PO BEDTIME [facility] Last Admin: 01/30/21 20:45 Dose: 60 mg Documented by: Levothyroxine Sodium (Levothyroxine 200 Mcg Tab) 200 mcg PO ACBREAKFAST [facility] Last Admin: 02/05/21 05:43 Dose: 200 mcg Documented by: Levothyroxine Sodium (Levothyroxine 25 Mcg Tab) 25 mcg PO DAILY [facility] Morphine Sulfate (Morphine 2 Mg/Ml Syringe) 2 mg IVPUSH Q4H PRN PRN Reason: Pain (severe 7-10) Stop: 01/30/21 16:55 Non-Formulary Medication (Naloxone Hcl [Narcan]) 4 mg NS ASDIRECTED PRN PRN Reason: Opioid Overdose Oxycodone HCl (Oxycodone 5 Mg Tab) 5 mg PO Q6H PRN PRN Reason: Pain (moderate 4-6) Last Admin: 01/30/21 10:14 Dose: 5 mg Documented by: Oxycodone HCl (Oxycodone 5 Mg Tab) 10 mg PO TID PRN PRN Reason: Pain (moderate 4-6) Last Admin: 01/31/21 09:13 Dose: 10 mg Documented by: Polyethylene Glycol (Polyethylene Glycol 3350 Powder 17 Gm Packet) gm PO Q72H [facility] Potassium Chloride (Potassium Chloride 20 Meq Tab.Er) 40 meq PO BID [facility] Stop: 02/02/21 21:01 Last Admin: 02/02/21 20:47 Dose: 40 meq Documented by: Pregabalin (Pregabalin 75 Mg Cap) 150 mg PO TID [facility] Last Admin: 01/30/21 12:10 Dose: Not Given Documented by: Sodium Chloride (Sodium Chloride 0.9% 10 Ml Syringe) 10 ml FLUSH ONETIME PRN PRN Reason: Keep Vein Open Last Admin: 01/29/21 15:47 Dose: 10 ml Documented by: Sodium Phosphate (Phosphorus #1 250 Mg Tab) 250 mg PO QID [facility] Stop: 01/30/21 17:01 Last Admin: 01/30/21 12:10 Dose: Not Given Documented by: Sodium Phosphate (Phosphorus #1 250 Mg Tab) 250 mg PO QID [facility] Stop: 01/30/21 21:01 Last Admin: 01/30/21 20:47 Dose: 250 mg Documented by: Zolpidem Tartrate (Zolpidem 5 Mg Tab) 2.5 mg PO BEDTIME PRN PRN Reason: Insomnia Stop: 02/01/21 21:01 - Exam Quality Assessment: Supplemental Oxygen (2L), DVT Prophylaxis. No: Urine Catheter General: Alert, Oriented, Cooperative, No Acute Distress HEENT: Pupils Equal, Pupils Reactive, Mucous Membr. Moist/[place] Neck: Supple, Trachea Midline Lungs: Normal Respiratory Effort, Decreased Breath Sounds, Rales Cardiovascular: Regular Rate, Irregular Rhythm, Murmurs GI/Abdominal Exam: Normal Bowel Sounds, Soft, Non-Tender, No Distention (Male) Exam: Deferred Back Exam: Normal Inspection, Full Range of Motion Extremities: Normal Inspection, Normal Range of Motion, Non-Tender, Normal Capillary Refill, Pedal Edema (Trace ) Skin: Warm, Dry, Intact Neurological: No New Focal Deficit Psy/Mental Status: Alert, Normal Affect, Normal Mood - Patient Data Lab Results Last 24 hrs: Laboratory Results - last 24 hr 02/07/21 02/07/21 02/08/21 Range/Units 07:59 07:59 05:58 WBC 7.40 7.19 (4.23-9.07) K/mm3 RBC 4.28 L 4.05 L (4.63-6.08) M/mm3 Hgb 12.9 L D 12.2 L (13.7-17.5) gm/dl Hct 40.1 37.9 L (40.1-51.0) % MCV 93.7 H 93.6 H (79.0-92.2) fl MCH 30.1 30.1 (25.7-32.2) pg MCHC 32.2 32.2 (32.2-35.5) g/dl RDW Std Deviation 47.2 H 47.2 H (35.1-43.9) fL Plt Count 247 244 (163-337) K/mm3 MPV 10.9 11.1 (9.4-12.3) fl Neut % (Auto) 63.1 63.3 (34.0-67.9) % Lymph % (Auto) 20.1 L 20.2 L (21.8-53.1) % [place] % (Auto) 9.3 9.2 (5.3-12.2) % Eos % (Auto) 6.2 6.0 (0.8-7.0) Baso % (Auto) 0.8 0.7 (0.1-1.2) % Neut # (Auto) 4.66 4.56 (1.78-5.38) K/mm3 Lymph # (Auto) 1.49 1.45 (1.32-3.57) K/mm3 [place] # (Auto) 0.69 0.66 (0.30-0.82) K/mm3 Eos # (Auto) 0.46 0.43 (0.04-0.54) K/mm3 Baso # (Auto) 0.06 0.05 (0.01-0.08) K/mm3 Sodium 140 (136-145) mEq/L Potassium 3.9 (3.5-5.1) mEq/L Chloride 101 (98-107) mEq/L Carbon Dioxide 30 (21-32) mEq/L Anion Gap 12.9 (5-15) BUN 14 (7-18) mg/dL Creatinine 1.2 (0.7-1.3) mg/dL Est Cr Clr Drug Dosing 67.48 mL/min Estimated GFR (MDRD) 60 (>60) mL/min BUN/Creatinine Ratio 11.7 L (14-18) Glucose 93 (70-99) mg/dL Calcium 9.9 (8.5-10.1) mg/dL C-Reactive Protein 4.6 H* (<1.0) mg/dL 02/08/21 Range/Units 05:58 WBC (4.23-9.07) K/mm3 RBC (4.63-6.08) M/mm3 Hgb (13.7-17.5) gm/dl Hct (40.1-51.0) % MCV (79.0-92.2) fl MCH (25.7-32.2) pg MCHC (32.2-35.5) g/dl RDW Std Deviation (35.1-43.9) fL Plt Count (163-337) K/mm3 MPV (9.4-12.3) fl Neut % (Auto) (34.0-67.9) % Lymph % (Auto) (21.8-53.1) % [place] % (Auto) (5.3-12.2) % Eos % (Auto) (0.8-7.0) Baso % (Auto) (0.1-1.2) % Neut # (Auto) (1.78-5.38) K/mm3 Lymph # (Auto) (1.32-3.57) K/mm3 [place] # (Auto) (0.30-0.82) K/mm3 Eos # (Auto) (0.04-0.54) K/mm3 Baso # (Auto) (0.01-0.08) K/mm3 Sodium 142 (136-145) mEq/L Potassium 4.2 (3.5-5.1) mEq/L Chloride 104 (98-107) mEq/L Carbon Dioxide 30 (21-32) mEq/L Anion Gap 12.2 (5-15) BUN 14 (7-18) mg/dL Creatinine 1.1 (0.7-1.3) mg/dL Est Cr Clr Drug Dosing 73.62 mL/min Estimated GFR (MDRD) > 60 (>60) mL/min BUN/Creatinine Ratio 12.7 L (14-18) Glucose 88 (70-99) mg/dL Calcium 9.2 (8.5-10.1) mg/dL C-Reactive Protein 2.4 H* (<1.0) mg/dL Result Diagrams: 02/08/21 05:58 02/08/21 05:58 Sepsis Event Note - Evaluation Sepsis Screening Result: No Definite Risk - Focused Exam Vital Signs: Vital Signs Temp Pulse Pulse Resp BP Pulse Ox Pulse Ox 02/08/21 06:07 90 L 02/08/21 04:47 97.7 F 58 L 12 103/61 88 L 02/07/21 23:34 81 02/07/21 20:35 91 L 02/07/21 20:17 118/60 02/07/21 20:16 98.2 F 75 16 118/60 92 L - Problem List & Annotations (1) Acute respiratory failure with hypoxia SNOMED Code(s): 45438172, 276847468 Code(s): J96.01 - ACUTE RESPIRATORY FAILURE WITH HYPOXIA Status: Acute Priority: High Current Visit: Yes (2) COPD exacerbation SNOMED Code(s): 916260582 Code(s): J44.1 - CHRONIC OBSTRUCTIVE PULMONARY DISEASE W (ACUTE) EXACERBATION Status: Acute Priority: High Current Visit: Yes (3) RSV (respiratory syncytial virus infection) SNOMED Code(s): 61936468 Code(s): B97.4 - RESPIRATORY SYNCYTIAL VIRUS CAUSING DISEASES CLASSD ELSWHR Status: Acute Priority: High Current Visit: Yes (4) Pneumonia SNOMED Code(s): 193772904 Code(s): J18.9 - PNEUMONIA, UNSPECIFIED ORGANISM Status: Acute Priority: High Current Visit: Yes Qualifiers: Pneumonia type: due to unspecified organism Laterality: bilateral Lung location: unspecified part of lung Qualified Code(s): J18.9 - Pneumonia, unspecified organism (5) Congestive heart failure SNOMED Code(s): 84938490 Code(s): I50.9 - HEART FAILURE, UNSPECIFIED Status: Chronic Priority: High Current Visit: Yes (6) Atrial fibrillation SNOMED Code(s): 10959471 Code(s): I48.91 - UNSPECIFIED ATRIAL FIBRILLATION Status: Chronic Priority: Medium Current Visit: Yes Qualifiers: Atrial fibrillation type: unspecified Qualified Code(s): I48.91 - Unspecified atrial fibrillation (7) Heart murmur SNOMED Code(s): 67299727 Code(s): R01.1 - CARDIAC MURMUR, UNSPECIFIED Status: Chronic Priority: Medium Current Visit: No (8) Laceration of left foot SNOMED Code(s): 931230937 Code(s): S91.312A - LACERATION WITHOUT FOREIGN BODY, LEFT FOOT, INIT ENCNTR Status: Chronic Priority: Low Current Visit: No Qualifiers: Encounter type: sequela Qualified Code(s): S91.312S - Laceration without foreign body, left foot, sequela (9) HTN (hypertension) SNOMED Code(s): 51118717 Code(s): I10 - ESSENTIAL (PRIMARY) HYPERTENSION Status: Chronic Priority: Medium Current Visit: No Qualifiers: Hypertension type: unspecified Qualified Code(s): I10 - Essential (primary) hypertension (10) Thrombocytopenia SNOMED Code(s): 474328965 Code(s): D69.6 - THROMBOCYTOPENIA, UNSPECIFIED Status: Chronic Priority: Medium Current Visit: Yes (11) Elevated d-dimer SNOMED Code(s): 439436838 Code(s): R79.89 - OTHER SPECIFIED ABNORMAL FINDINGS OF BLOOD CHEMISTRY Status: Acute Priority: Medium Current Visit: Yes (12) History of dysphagia SNOMED Code(s): 43460638661412419 Code(s): Z87.19 - PERSONAL HISTORY OF OTHER DISEASES OF THE DIGESTIVE SYSTEM Status: Chronic Priority: Low Current Visit: Yes (13) Pulmonary nodule SNOMED Code(s): 267986088 Code(s): R91.1 - SOLITARY PULMONARY NODULE Status: Chronic Priority: Low Current Visit: Yes - Problem List Review Problem List Initiated/Reviewed/Updated: Yes - Assessment Assessment:: 02/04/2021 This is a 70-year-old male admitted to the floor for acute hypoxemic respiratory failure and found to be RSV positive. There was a questionable pneumonia on imaging and he was started on azithromycin and Rocephin. He will complete his azithromycin today and will continue Rocephin for a total of 7 days. His CRP today is up to 15 but there is no leukocytosis. We will recheck a procalcitonin as there was an elevation during his stay, although minimal. We have been actively diuresing him and there has not been a very impressive output. Patient reportedly was drinking significant amount of free water and is now on a fluid restriction. We will increase his Lasix dosing to 80 mg twice daily diuretic timing and increase his XAVIER monitoring to strict. He remains on 3 L of oxygen. He states he is not on oxygen at baseline. Echocardiogram was obtained but was very poor imaging. 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 Salinas. He does report orthopnea and swelling. We will put RAHUL hose on and treat him as a CHF exacerbation. Length of stay likely 1 to 2 days pending continue diuresis and wean of oxygen. 02/05/2021 70-year-old male admitted to the floor for RSV and questionable pneumonia. He completed azithromycin and will continue 7 days of Rocephin. He is also noted to have rather significant edema we have increase his diuretics to 80 mg twice daily, which has improved his output. He states he is feeling better. He is down 10 pounds from admission. He continues on a 2 L fluid restriction. White count today was 7.02. Hemoglobin is 12.2. Platelet 174,000. Neutrophils are 68.4%. Sodium is 141. Potassium 3.7. Chloride 104. Carbon dioxide 31. Anion gap is 9.7. BUN is 14. Creatinine 1.0. GFR greater than 60. Glucose 91. Magnesium 2.1. CRP is 12.7. Procalcitonin yesterday was 0.16 which has improved since his prior procalcitonin. proBNP was 1490, which is improved from 1924 on admission. We will continue diuresis with Lasix and supportive care for his. Length of stay likely 1-2 more days. 02/06/2021 This is a 70-year-old male mated to the floor for acute hypoxemic respiratory f ailure and RSV. He also had a questionable pneumonia which was treated with azithromycin and he continues on Rocephin. This will stop after 7 days of treatment. Therapy saw him and stated he is at baseline. I will continue to evaluate. He continues on 80 mg Lasix twice daily and continues to diurese. He is down over 12 pounds from admission. Continues with 2 L fluid restriction. Labs today show WBC of 6.79. Hemoglobin 11.4. Platelet 208,000. Neutrophils are normal at 65.9. Sodium is 142. Potassium is 3.8. Chloride 105. Carbon dioxide 30. Anion gap is 10.8. BUN is 13. Creatinine is 1.0. GFR is greater than 60. CRP is down to 7.9. We will discontinue continuous pulse oximetry but continue telemetry as we are diuresing. We will pulse ox per protocol with vital signs. Length of stay likely 1 to 2 days pending oxygen improvements and continued diuresis. 02/07/2021 The patient is a 70-year-old gentleman who was admitted secondary to acute respi ratory failure due to respiratory syncytial virus. The patient is currently anticoagulated due to his atrial fibrillation with the use of the Eliquis. Patient also has heart failure and has been diuresed. The patient is also is taking isosorbide and for him this will be continued. The patient will have his oxygen supply to keep his saturations around 92%. The patient will likely need to have oxygen when able to go home. He will likely be appropriate for discharge in 1 to 2 days. He has been encouraged to ambulate. The patient was instructed in the use of the incentive spirometer. 02/08/2021 70-year-old male admitted secondary to acute respiratory failure from RSV and who is currently being diuresed due to heart failure and edema. He will likely require oxygen at discharge. His pedal edema has greatly improved. We will continue to diurese through today. White count is 7.19. Hemoglobin 12.2. Platelets are 244,000. Neutrophils are 63.3%. Sodium 142. Potassium 4.2. Chloride 104. Carbon dioxide 30. Anion gap 12.2. BUN is 14. Creatinine 1.1. GFR greater than 60. Glucose 88. Calcium 9.2. CRP is 2.4. Likely discharge 1 to 2 days pending continued improvement/diuresis. - Plan Plan:: Patient is a 70-year-old male with a history of hypertension, COPD, CHF, atrial fibrillation, and chronic back pain who presented to the ER due to worsening shortness of breath. Assessment and plan: Acute hypoxic respiratory failure Etiology likely a combination of RSV infection induced, CHF exacerbation, pneumonia, and COPD Repeat chest x-ray on the showed increasing density within the left upper chest from prior study which may represent an area of pneumonia. Patient has had improvement in his fevers since starting antibiotics. Last high temperature was 100.8 on 01/31 at 0800 hrs. In the ER, he had a SpO2 89% with 6L CTA chest - NO PE; small parenchymal densities within both lower lungs as well as left upper lung Pulse ox Continues on 2L CHF, preserved ejection fraction Murmur 12+ pound weight loss since admission BNP 1924 on admission; recheck 1419 CXR - cardiomegaly with mild pulmonary vascular congestion. Troponin < 0.017 x [address] elevation lasix 80mg po bid is on hold Increased lasix to 80mg iv biddiuretic. Intake and output - strict Follow electrolytes Echocardiogram showed a normal left ejection fraction of 55 to 60%. No mention of diastolic dysfunction. The right ventricle systolic pressure was normal at 32.4 mmHg. Technically difficult study. Suspect normal LV systolic function. Minimal valvular disease. Potassium was supplemented Pneumonia Afebrile last 48 hours CXR on 01/31/2021 showed mild increasing central lung markings possibly due to mild pulmonary vascular congestion. Increasing density within the left upper chest from prior study which may represent an area of pneumonia versus asymmetric pulmonary vascular congestion. Normal white count Procalcitonin increased from less than 0.05 to 0.23; re-check 0.16 influenza A and B negative RSV positive Covid 19 negative. He has been fully vaccinated against covid 19 His fever could result from RSV infection or secondary bacterial pneumonia Rocephin x7 days azithromycin x5 days (completed) Droplet isolation COPD Stable Continue inhalers Atrial fib Heart rate is controlled nebivolol 2.5mg daily Continue Eliquis 5mg bid patient does have thrombocytopenia with platelet count of 90,000. Will follow closely for bleeding. Chronic back pain Home medications include trazodone 50 mg at bedtime and oxycodone/acetaminophen 10-325 mg every 4 hours as needed. I will change it to oxycodone 10 mg oral 6 times daily as needed, trazodone 50 mg at bedtime and Ambien 2.5 mg at bedtime. 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 HTN Continue amlodipine 10mg daily, imdur 60mg daily, nebivolol 2.5mg daily Hydralazine as needed Thrombocytopenia, Resolved 101->89-> 87->90-->97-->147-->174-->208-->247-->244 platelets 151 on 07/12/2019 No evidence of bleeding. Will continue his Eliquis but closely monitor. I will hold Eliquis if platelets continue to decrease or bleeding occurs. Monitor Elevation of D-dimer, 0.98 CTA chest - no PE. Patient has been on Eliquis. I would not like to do more work-up Continue Eliquis Hx of dysphagia Speech pathology consultno dysphagia. On mechanical soft because he does not have his dentures. Pulmonary nodule Repeat CT chest in 6 months DVT prophylaxis: Eliquis CODE STATUS: Full Prognosis: Good. Hopeful for discharge in next 1 to 2 days. Length of stay greater than 96 hours due to need for continued diuresis. <Bigg Almaguer - Last Filed: 02/08/21 13:42> - Patient Data Vitals - Most Recent: Last Vital Signs Temp 36.5 C 02/08/21 04:47 Pulse 58 L 02/08/21 04:47 Resp 12 02/08/21 04:47 BP 96/76 02/08/21 08:36 Pulse Ox 90 L 02/08/21 13:19 I&O - Last 24 Hours: Intake & Output 02/07/21 02/08/21 02/08/21 22:59 06:59 14:59 Intake Total 1429 220 0993 Output Total 300 575 Balance 1262 -175 1550 Lab Results Last 24 Hours: Laboratory Results - last 24 hr 02/08/21 02/08/21 Range/Units 05:58 05:58 WBC 7.19 (4.23-9.07) K/mm3 RBC 4.05 L (4.63-6.08) M/mm3 Hgb 12.2 L (13.7-17.5) gm/dl Hct 37.9 L (40.1-51.0) % MCV 93.6 H (79.0-92.2) fl MCH 30.1 (25.7-32.2) pg MCHC 32.2 (32.2-35.5) g/dl RDW Std Deviation 47.2 H (35.1-43.9) fL Plt Count 244 (163-337) K/mm3 MPV 11.1 (9.4-12.3) fl Neut % (Auto) 63.3 (34.0-67.9) % Lymph % (Auto) 20.2 L (21.8-53.1) % Sequ[place]ah % (Auto) 9.2 (5.3-12.2) % Eos % (Auto) 6.0 (0.8-7.0) Baso % (Auto) 0.7 (0.1-1.2) % Neut # (Auto) 4.56 (1.78-5.38) K/mm3 Lymph # (Auto) 1.45 (1.32-3.57) K/mm3 [place] # (Auto) 0.66 (0.30-0.82) K/mm3 Eos # (Auto) 0.43 (0.04-0.54) K/mm3 Baso # (Auto) 0.05 (0.01-0.08) K/mm3 Sodium 142 (136-145) mEq/L Potassium 4.2 (3.5-5.1) mEq/L Chloride 104 (98-107) mEq/L Carbon Dioxide 30 (21-32) mEq/L Anion Gap 12.2 (5-15) BUN 14 (7-18) mg/dL Creatinine 1.1 (0.7-1.3) mg/dL Est Cr Clr Drug Dosing 73.62 mL/min Estimated GFR (MDRD) > 60 (>60) mL/min BUN/Creatinine Ratio 12.7 L (14-18) Glucose 88 (70-99) mg/dL Calcium 9.2 (8.5-10.1) mg/dL C-Reactive Protein 2.4 H* (<1.0) mg/dL Med Orders - Current: Current Medications Acetaminophen (Acetaminophen 325 Mg Tab) 650 mg PO Q6H PRN PRN Reason: Pain (Mild 1-3)/fever Last Admin: 02/04/21 10:18 Dose: 650 mg Documented by: Albuterol/Ipratropium (Albuterol/Ipratropium 3.0-0.5 Mg/3 Ml Neb Soln) 3 ml NEB Q4HRRT PRN PRN Reason: Shortness Of Breath/wheezing Last Admin: 02/06/21 08:16 Dose: 3 ml Documented by: Albuterol/Ipratropium (Albuterol/Ipratropium 3.0-0.5 Mg/3 Ml Neb Soln) 3 ml NEB TIDRT [facility] Last Admin: 02/08/21 13:17 Dose: 3 ml Documented by: Allopurinol (Allopurinol 100 Mg Tab) 100 mg PO DAILY [facility] Last Admin: 02/08/21 08:37 Dose: 100 mg Documented by: Amlodipine Besylate (Amlodipine 10 Mg Tab) 10 mg PO BEDTIME [facility] Last Admin: 02/07/21 20:17 Dose: 10 mg Documented by: Apixaban (Apixaban 5 Mg Tab) 5 mg PO BID [facility] Last Admin: 02/08/21 08:36 Dose: 5 mg Documented by: Aspirin (Aspirin 81 Mg Tab.Ec) 81 mg PO DAILY [facility] Last Admin: 02/08/21 08:37 Dose: 81 mg Documented by: Atorvastatin Calcium (Atorvastatin 20 Mg Tab) 20 mg PO DAILY [facility] Last Admin: 02/08/21 08:35 Dose: 20 mg Documented by: Buspirone HCl (Buspirone 5 Mg Tab) 7.5 mg PO BID [facility] Last Admin: 02/08/21 08:35 Dose: 7.5 mg Documented by: Cholecalciferol (Cholecalciferol (Vitamin D3) 25 Mcg Tab) 50 mcg PO DAILY [facility] Last Admin: 02/08/21 08:36 Dose: 50 mcg Documented by: Citalopram Hydrobromide (Citalopram 20 Mg Tab) 40 mg PO BEDTIME [facility] Last Admin: 02/07/21 20:17 Dose: 40 mg Documented by: Docusate Sodium (Docusate Sodium 100 Mg Cap) 100 mg PO BID PRN PRN Reason: Constipation Last Admin: 02/07/21 07:57 Dose: 100 mg Documented by: Doxazosin Mesylate (Doxazosin 2 Mg Tab) 2 mg PO BEDTIME [facility] Last Admin: 02/07/21 20:17 Dose: 2 mg Documented by: Furosemide (Furosemide 100 Mg/10 Ml Sdv) 80 mg IVPUSH BIDDIURETIC [facility] Last Admin: 02/08/21 05:54 Dose: 80 mg Documented by: Guaifenesin (Guaifenesin 600 Mg Tab.Er) 1,200 mg PO BID [facility] Last Admin: 02/08/21 08:36 Dose: 1,200 mg Documented by: Guaifenesin/Dextromethorphan (Guaifenesin/Dextromethorphan 100-10 Mg/5 Ml Soln 5 Ml Cup) 10 ml PO QID PRN PRN Reason: Cough Last Admin: 02/03/21 06:00 Dose: 10 ml Documented by: Hydralazine HCl (Hydralazine 20 Mg/Ml Sdv) 10 mg IVPUSH Q4H PRN PRN Reason: Hypertension Promethazine HCl 12.5 mg/ (Sodium Chloride) 50.5 mls @ 100 mls/hr IV Q6H PRN PRN Reason: Nausea/Vomiting Isosorbide Mononitrate (Isosorbide Mononitrate 30 Mg Tab.Er) 30 mg PO DAILY [facility] Last Admin: 02/08/21 08:36 Dose: 30 mg Documented by: Levothyroxine Sodium (Levothyroxine 100 Mcg Tab) 200 mcg PO ACBREAKFAST [facility] Last Admin: 02/08/21 05:55 Dose: 200 mcg Documented by: Lubiprostone (Lubiprostone 24 Mcg Cap) 24 mcg PO BID [facility] Last Admin: 02/08/21 08:37 Dose: 24 mcg Documented by: Mometasone Furoate/Formoterol Fumar (Formoterol/Mometasone 200-5 Mcg 8.8 Gm Inhaler) 2 puff IH BIDRT [facility] Last Admin: 02/08/21 06:06 Dose: 2 puff Documented by: Oxybutynin Chloride (Oxybutynin 5 Mg Tab) 5 mg PO BID [facility] Last Admin: 02/08/21 08:35 Dose: 5 mg Documented by: Oxycodone HCl (Oxycodone 5 Mg Tab) 10 mg PO Q4H PRN PRN Reason: Pain (moderate 4-6) Last Admin: 02/08/21 08:37 Dose: 10 mg Documented by: Pantoprazole Sodium (Pantoprazole 40 Mg Tab.Cr) 40 mg PO BIDAC [facility] Last Admin: 02/08/21 05:55 Dose: 40 mg Documented by: Suvorexant [Belsomra (] 20 Mg Tablet) 0 each PO BEDTIME PRN PRN Reason: Insomnia Potassium Chloride (Potassium Chloride 20 Meq Tab.Er) 20 meq PO DAILY [facility] Last Admin: 02/08/21 08:36 Dose: 20 meq Documented by: Pregabalin (Pregabalin 75 Mg Cap) 150 mg PO TID [facility] Last Admin: 02/08/21 08:37 Dose: 150 mg Documented by: Senna/Docusate Sodium (Docusate Sodium/Sennosides 50-8.6 Mg Tab) 2 tab PO BID PRN PRN Reason: Constipation Last Admin: 02/06/21 21:00 Dose: 2 tab Documented by: Sodium Chloride (Sodium Chloride 0.9% 10 Ml Syringe) 10 ml FLUSH ASDIRECTED PRN PRN Reason: Keep Vein Open Last Admin: 01/29/21 14:45 Dose: 10 ml Documented by: Tamsulosin HCl (Tamsulosin 0.4 Mg Cap.Er) 0.4 mg PO BEDTIME [facility] Last Admin: 02/07/21 20:17 Dose: 0.4 mg Documented by: Trazodone HCl (Trazodone 50 Mg Tab) 50 mg PO BEDTIME PRN PRN Reason: insomia Last Admin: 02/02/21 20:49 Dose: 50 mg Documented by: Discontinued Medications Albuterol (Albuterol 0.083% 2.5 Mg/3 Ml Neb Soln) 2.5 mg NEB ONETIME ONE Stop: 01/29/21 16:02 Last Admin: 01/29/21 16:26 Dose: 2.5 mg Documented by: Albuterol/Ipratropium (Albuterol/Ipratropium 3.0-0.5 Mg/3 Ml Neb Soln) 3 ml NEB TIDRT [facility] Allopurinol (Allopurinol 100 Mg Tab) 100 mg PO DAILY [facility] Last Admin: 01/30/21 12:11 Dose: Not Given Documented by: Apixaban (Apixaban 5 Mg Tab) 5 mg PO BID [facility] Last Admin: 01/30/21 12:06 Dose: Not Given Documented by: Aspirin (Aspirin 81 Mg Tab.Ec) 81 mg PO DAILY [facility] Last Admin: 01/30/21 12:06 Dose: Not Given Documented by: Atorvastatin Calcium (Atorvastatin 20 Mg Tab) 20 mg PO DAILY [facility] Last Admin: 01/30/21 12:10 Dose: Not Given Documented by: Buspirone HCl (Buspirone 5 Mg Tab) 7.5 mg PO BID [facility] Last Admin: 01/30/21 12:06 Dose: Not Given Documented by: Carvedilol (Carvedilol 3.125 Mg Tab) 3.125 mg PO BIDMEALS [facility] Last Admin: 01/30/21 12:06 Dose: Not Given Documented by: Cholecalciferol (Cholecalciferol (Vitamin D3) 25 Mcg Tab) 50 mcg PO DAILY [facility] Last Admin: 01/30/21 12:10 Dose: Not Given Documented by: Doxazosin Mesylate (Doxazosin 4 Mg Tab) 4 mg PO BEDTIME [facility] Last Admin: 01/30/21 12:05 Dose: Not Given Documented by: Enoxaparin Sodium (Enoxaparin 40 Mg/0.4 Ml Syringe) 40 mg SUBCUT DAILY [facility] Finasteride (Finasteride 5 Mg Tab) 5 mg PO DAILY [facility] Last Admin: 01/30/21 12:10 Dose: Not Given Documented by: Finasteride (Finasteride 5 Mg Tab) 5 mg PO DAILY [facility] Last Admin: 01/31/21 09:11 Dose: 5 mg Documented by: Furosemide (Furosemide 40 Mg/4 Ml Vial) 40 mg IVPUSH BID [facility] Last Admin: 01/30/21 12:09 Dose: Not Given Documented by: Furosemide (Furosemide 40 Mg/4 Ml Vial) 40 mg IVPUSH BID [facility] Last Admin: 01/31/21 09:14 Dose: 40 mg Documented by: Furosemide (Furosemide 100 Mg/10 Ml Sdv) 60 mg IVPUSH BIDDIURETIC [facility] Last Admin: 02/04/21 05:10 Dose: 60 mg Documented by: Furosemide (Furosemide 20 Mg/2 Ml Vial) 20 mg IVPUSH ONETIME ONE Stop: 02/04/21 10:01 Last Admin: 02/04/21 10:18 Dose: 20 mg Documented by: Guaifenesin (Guaifenesin 600 Mg Tab.Er) 1,200 mg PO BID PRN PRN Reason: Cough Last Admin: 02/01/21 09:22 Dose: 1,200 mg Documented by: Sodium Chloride (Normal Saline) 100 mls @ 60 mls/hr IV ASDIRECTED [facility] Last Admin: 01/29/21 15:50 Dose: 60 mls/hr Documented by: Ceftriaxone Sodium 1 gm/ (Sodium Chloride) 100 mls @ 200 mls/hr IV ONETIME ONE Stop: 01/29/21 16:51 Last Admin: 01/29/21 15:30 Dose: 200 mls/hr Documented by: Ceftriaxone Sodium 2 gm/ (Sodium Chloride) 100 mls @ 200 mls/hr IV Q24H [facility] Azithromycin 500 mg/ Sodium (Chloride) 250 mls @ 250 mls/hr IV Q24H [facility] Sodium Chloride (Normal Saline) 500 mls @ 250 mls/hr IV ONETIME ONE Stop: 01/30/21 00:41 Last Admin: 01/29/21 22:58 Dose: 250 mls/hr Documented by: Sodium Chloride (Normal Saline) Confirm Administered Dose 1,000 mls @ as directed .ROUTE .STK-MED ONE Stop: 01/29/21 22:48 Last Admin: 01/29/21 22:59 Dose: Not Given Documented by: Ceftriaxone Sodium 2 gm/ (Sodium Chloride) 100 mls @ 200 mls/hr IV Q24H [facility] Stop: 02/07/21 13:31 Last Admin: 02/07/21 13:15 Dose: 200 mls/hr Documented by: Azithromycin 500 mg/ Sodium (Chloride) 250 mls @ 250 mls/hr IV Q24H [facility] Stop: 02/04/21 14:59 Last Admin: 02/04/21 14:36 Dose: 250 mls/hr Documented by: Iopamidol (Iopamidol 755 Mg/Ml 100 Ml Bottle) 100 ml IVPUSH ONETIME ONE Stop: 01/29/21 15:30 Last Admin: 01/29/21 15:47 Dose: 100 ml Documented by: Isosorbide Mononitrate (Isosorbide Mononitrate 60 Mg Tab.Er) 60 mg PO BEDTIME [facility] Last Admin: 01/30/21 20:45 Dose: 60 mg Documented by: Levothyroxine Sodium (Levothyroxine 200 Mcg Tab) 200 mcg PO ACBREAKFAST [facility] Last Admin: 02/05/21 05:43 Dose: 200 mcg Documented by: Levothyroxine Sodium (Levothyroxine 25 Mcg Tab) 25 mcg PO DAILY [facility] Morphine Sulfate (Morphine 2 Mg/Ml Syringe) 2 mg IVPUSH Q4H PRN PRN Reason: Pain (severe 7-10) Stop: 01/30/21 16:55 Non-Formulary Medication (Naloxone Hcl [Narcan]) 4 mg NS ASDIRECTED PRN PRN Reason: Opioid Overdose Oxycodone HCl (Oxycodone 5 Mg Tab) 5 mg PO Q6H PRN PRN Reason: Pain (moderate 4-6) Last Admin: 01/30/21 10:14 Dose: 5 mg Documented by: Oxycodone HCl (Oxycodone 5 Mg Tab) 10 mg PO TID PRN PRN Reason: Pain (moderate 4-6) Last Admin: 01/31/21 09:13 Dose: 10 mg Documented by: Polyethylene Glycol (Polyethylene Glycol 3350 Powder 17 Gm Packet) gm PO Q72H [facility] Potassium Chloride (Potassium Chloride 20 Meq Tab.Er) 40 meq PO BID [facility] Stop: 02/02/21 21:01 Last Admin: 02/02/21 20:47 Dose: 40 meq Documented by: Pregabalin (Pregabalin 75 Mg Cap) 150 mg PO TID [facility] Last Admin: 01/30/21 12:10 Dose: Not Given Documented by: Sodium Chloride (Sodium Chloride 0.9% 10 Ml Syringe) 10 ml FLUSH ONETIME PRN PRN Reason: Keep Vein Open Last Admin: 01/29/21 15:47 Dose: 10 ml Documented by: Sodium Phosphate (Phosphorus #1 250 Mg Tab) 250 mg PO QID [facility] Stop: 01/30/21 17:01 Last Admin: 01/30/21 12:10 Dose: Not Given Documented by: Sodium Phosphate (Phosphorus #1 250 Mg Tab) 250 mg PO QID [facility] Stop: 01/30/21 21:01 Last Admin: 01/30/21 20:47 Dose: 250 mg Documented by: Zolpidem Tartrate (Zolpidem 5 Mg Tab) 2.5 mg PO BEDTIME PRN PRN Reason: Insomnia Stop: 02/01/21 21:01 - Patient Data Lab Results Last 24 hrs: Laboratory Results - last 24 hr 02/08/21 02/08/21 Range/Units 05:58 05:58 WBC 7.19 (4.23-9.07) K/mm3 RBC 4.05 L (4.63-6.08) M/mm3 Hgb 12.2 L (13.7-17.5) gm/dl Hct 37.9 L (40.1-51.0) % MCV 93.6 H (79.0-92.2) fl MCH 30.1 (25.7-32.2) pg MCHC 32.2 (32.2-35.5) g/dl RDW Std Deviation 47.2 H (35.1-43.9) fL Plt Count 244 (163-337) K/mm3 MPV 11.1 (9.4-12.3) fl Neut % (Auto) 63.3 (34.0-67.9) % Lymph % (Auto) 20.2 L (21.8-53.1) % [place] % (Auto) 9.2 (5.3-12.2) % Eos % (Auto) 6.0 (0.8-7.0) Baso % (Auto) 0.7 (0.1-1.2) % Neut # (Auto) 4.56 (1.78-5.38) K/mm3 Lymph # (Auto) 1.45 (1.32-3.57) K/mm3 [place] # (Auto) 0.66 (0.30-0.82) K/mm3 Eos # (Auto) 0.43 (0.04-0.54) K/mm3 Baso # (Auto) 0.05 (0.01-0.08) K/mm3 Sodium 142 (136-145) mEq/L Potassium 4.2 (3.5-5.1) mEq/L Chloride 104 (98-107) mEq/L Carbon Dioxide 30 (21-32) mEq/L Anion Gap 12.2 (5-15) BUN 14 (7-18) mg/dL Creatinine 1.1 (0.7-1.3) mg/dL Est Cr Clr Drug Dosing 73.62 mL/min Estimated GFR (MDRD) > 60 (>60) mL/min BUN/Creatinine Ratio 12.7 L (14-18) Glucose 88 (70-99) mg/dL Calcium 9.2 (8.5-10.1) mg/dL C-Reactive Protein 2.4 H* (<1.0) mg/dL Result Diagrams: 02/08/21 05:58 02/08/21 05:58 Sepsis Event Note - Focused Exam Vital Signs: Vital Signs Temp Pulse Resp BP Pulse Ox Pulse Ox 02/08/21 13:19 90 L 02/08/21 08:36 96/76 02/08/21 06:07 90 L 02/08/21 04:47 36.5 C 58 L 12 103/61 88 L - Problem List & Annotations (1) Acute respiratory failure with hypoxia SNOMED Code(s): 19700240, 456568460 Code(s): J96.01 - ACUTE RESPIRATORY FAILURE WITH HYPOXIA Status: Acute Priority: High Current Visit: Yes (2) RSV (respiratory syncytial virus infection) SNOMED Code(s): 20161273 Code(s): B97.4 - RESPIRATORY SYNCYTIAL VIRUS CAUSING DISEASES CLASSD [id number] Status: Acute Priority: High Current Visit: Yes (3) Atrial fibrillation SNOMED Code(s): 71645505 Code(s): I48.91 - UNSPECIFIED ATRIAL FIBRILLATION Status: Chronic Priority: Medium Current Visit: Yes Qualifiers: Atrial fibrillation type: unspecified Qualified Code(s): I48.91 - Unspecified atrial fibrillation - Free Text/Narrative Note: I have seen and examined the patient independently of SHIRLEY Strauss. I have discussed the case with him. I have also reviewed and agree with the plan of care as outlined by him. Please see orders.
[2021-02-08] MEDS: atorvaSTATin 20 MG Tab PO SCH (08:35)
[2021-02-08] MEDS: busPIRone 5 MG Tab PO SCH ×2 (08:35→20:49)
[2021-02-08] MEDS: Oxybutynin 5 MG Tab PO SCH ×2 (08:35→20:48)
[2021-02-08] MEDS: Apixaban 5 MG Tab PO SCH ×2 (08:36→20:54)
[2021-02-08] MEDS: Cholecalciferol (Vitamin D3) 25 MCG Tab PO SCH (08:36)
[2021-02-08] MEDS: guaiFENesin 600 MG Tab.ER PO SCH ×2 (08:36→20:48)
[2021-02-08] MEDS: Potassium Chloride 20 MEQ Tab.ER PO SCH (08:36)
[2021-02-08] MEDS: Isosorbide Mononitrate 30 MG Tab.ER PO SCH (08:36)
[2021-02-08] MEDS: Lubiprostone 24 MCG Cap PO SCH ×2 (08:37→20:54)
[2021-02-08] MEDS: Pregabalin 75 MG Cap PO SCH ×3 (08:37→20:50)
[2021-02-08] MEDS: Aspirin 81 MG Tab.EC PO SCH (08:37)
[2021-02-08] MEDS: oxyCODONE 5 MG Tab PO PRN ×3 (08:37→21:05)
[2021-02-08] MEDS: Allopurinol 100 MG Tab PO SCH (08:37)
[2021-02-08] MEDS: Citalopram 20 MG Tab PO SCH (20:49)
[2021-02-08] MEDS: amLODIPine 10 MG Tab PO SCH (20:50)
[2021-02-08] MEDS: Tamsulosin 0.4 MG Cap.ER PO SCH (20:50)
[2021-02-08] MEDS: Doxazosin 2 MG Tab PO SCH (20:53)
[2021-02-08] MEDS: traZODone 50 MG Tab PO PRN (21:06)
[2021-02-09] MEDS: Furosemide 100 MG/10 ML SDV IVPUSH SCH ×2 (05:37→14:09)
[2021-02-09] MEDS: Levothyroxine 100 MCG Tab PO SCH (05:39)
[2021-02-09] MEDS: Pantoprazole 40 MG Tab.CR PO SCH ×2 (05:39→15:06)
[2021-02-09] MEDS: Albuterol/Ipratropium 3.0-0.5 MG/3 ML Neb Soln NEB SCH ×3 (06:17→20:15)
[2021-02-09] MEDS: Formoterol/Mometasone 200-5 MCG 8.8 GM Inhaler IH SCH ×2 (06:18→20:15)
[2021-02-09] MEDS: Lubiprostone 24 MCG Cap PO SCH ×2 (08:07→21:11)
[2021-02-09] MEDS: atorvaSTATin 20 MG Tab PO SCH (08:08)
[2021-02-09] MEDS: Pregabalin 75 MG Cap PO SCH ×3 (08:08→21:05)
[2021-02-09] MEDS: busPIRone 5 MG Tab PO SCH ×2 (08:08→21:07)
[2021-02-09] MEDS: Isosorbide Mononitrate 30 MG Tab.ER PO SCH (08:08)
[2021-02-09] MEDS: Potassium Chloride 20 MEQ Tab.ER PO SCH (08:08)
[2021-02-09] MEDS: oxyCODONE 5 MG Tab PO PRN ×3 (08:08→21:06)
[2021-02-09] MEDS: Aspirin 81 MG Tab.EC PO SCH (08:08)
[2021-02-09] MEDS: Allopurinol 100 MG Tab PO SCH (08:08)
[2021-02-09] MEDS: Oxybutynin 5 MG Tab PO SCH ×2 (08:08→21:05)
[2021-02-09] MEDS: Cholecalciferol (Vitamin D3) 25 MCG Tab PO SCH (08:11)
[2021-02-09] MEDS: Apixaban 5 MG Tab PO SCH ×2 (08:11→21:05)
[2021-02-09] MEDS: guaiFENesin 600 MG Tab.ER PO SCH ×2 (08:11→21:05)
--- NOTE | 2021-02-09 08:16 | PCM.DCSUM1 ---
Discharge Summary - Hospital Course HPI Initial Comments: The patient is a 70-year-old gentleman who was admitted to acute hospitalization January 29, 2021. This was due to acute respiratory failure with hypoxia and hypercapnia. Diagnosis: Stroke: No - Discharge Data Discharge Date: 02/10/21 Discharge Disposition: Home, Self-Care 01 Condition: Good - Referral to Home Health Primary Care Physician: Candi Mancini MD - Discharge Diagnosis/Problem(s) (1) Acute respiratory failure with hypoxia SNOMED Code(s): 54278068, 523654001 ICD Code: J96.01 - ACUTE RESPIRATORY FAILURE WITH HYPOXIA Status: Resolved Priority: High (2) RSV (respiratory syncytial virus infection) SNOMED Code(s): 93372220 ICD Code: B97.4 - RESPIRATORY SYNCYTIAL VIRUS CAUSING DISEASES CLASSD ELSWHR Status: Resolved Priority: High (3) Atrial fibrillation SNOMED Code(s): 11151004 ICD Code: I48.91 - UNSPECIFIED ATRIAL FIBRILLATION Status: Chronic Priority: Medium Qualifiers: Atrial fibrillation type: unspecified Qualified Code(s): I48.91 - Unspecified atrial fibrillation - Patient Summary/Data Consults: Consultations 01/29/21 16:55 OT Evaluation and Treatment [CONS] Routine PT Evaluation and Treatment [CONS] Routine 01/29/21 16:59 Consult to Speech Language Pathology [DIRECTOR SOCIAL Evaluation and Treatment] [CONS] Routine Hospital Course: The patient is a 70-year-old gentleman who was admitted to acute hospitalization on January 29, 2021 out of concern for respiratory failure with hypoxia and hypercapnia. The patient was found to be positive for respiratory syncytial virus. The patient was also admitted for congestive heart failure and his BNP was elevated at 1924. The patient did not have elevations of his troponins. A 2D echocardiogram was obtained on January 30, 2021 which showed a left ventricular ejection fraction of 55 to 60%. He also had sclerosis of his aortic valve with normal right ventricular function. The patient came in with an initial weight 126 kg and he was diuresed down to 115 kg. The patient tolerated the diuresis well. This was completed with IV furosemide. The patient also had been given a prescription for furosemide 40 mg p.o. daily. He was also to continue on his other home medications upon discharge. The patient reports that he had been changed from Lasix to torsemide and this caused his problem with excessive fluid buildup. By day of discharge the patient reported that he had been doing much better. He was really satisfied with his weight loss. Initially the patient had been started on ceftriaxone out of concern for bacterial pneumonia. This was discontinued. The patient also had been on a azithromycin and had tolerated this well. The patient had been treated predominantly for fluid overload and he continued to improve. The patient had a chest x-ray on January 31, 2021 which was compared to 1 performed on admission which showed mild increasing central lung markings due to mild pulmonary vascular congestion. The patient has been recommended to follow-up with his primary care physician for follow-up x-ray. The patient has been hemodynamically stable but through his extended stay had required oxygen support. The patient was sent home on oxygen 2 L/min via nasal cannula. The patient has been recommended to follow-up with his primary care physician for this. The patient had been tolerating his diet by day of discharge. He is also to have activity as tolerated. The patient has been hemodynamically stable and he is discharged with the recommendations listed above. - Discharge Plan *PRESCRIPTION DRUG MONITORING PROGRAM REVIEWED*: Not Applicable *COPY OF PRESCRIPTION DRUG MONITORING REPORT IN PATIENT MERLINE: Not Applicable Prescriptions/Med Rec: Furosemide 40 mg PO DAILY #30 tablet Home Medications: Home Meds Potassium Chloride [Klor-Con] 20 meq PO DAILY 10/06/13 [History] atorvaSTATin [Lipitor] 20 mg PO DAILY 11/17/14 [History] Tamsulosin [Flomax] 0.4 mg PO 1800 05/16/15 [History] Doxazosin [Cardura] 2 mg PO DAILY 11/30/17 [History] Isosorbide Mononitrate [Isosorbide Mononitrate ER] 30 mg PO DAILY 11/30/17 [History] Naloxone HCl [Narcan] 4 mg NS ASDIRECTED PRN 11/30/17 [History] Nebivolol [Bystolic] 2.5 mg PO BEDTIME 11/30/17 [History] amLODIPine Besylate [Amlodipine Besylate] 10 mg PO BEDTIME 11/30/17 [History] Escitalopram Oxalate 10 mg PO DAILY 09/14/18 [History] Omeprazole 20 mg PO BIDMEALS 09/14/18 [History] Sennosides/Docusate Sodium [Senna-Docusate Sodium Tablet] 1 tab PO BEDTIME 09/14/18 [History] Suvorexant [Belsomra] 20 mg PO BEDTIME PRN 09/14/18 [History] Vitamin B Complex 1 tab PO DAILY 09/14/18 [History] Albuterol Sulfate [Proair Respiclick] 1 - 2 puff IH Q4H PRN 09/15/18 [History] Nitroglycerin [Nitrostat] 0.4 mg SL ASDIRECTED PRN 09/15/18 [History] Cholecalciferol (Vitamin D3) [Vitamin D3] 2,000 unit PO DAILY 07/11/19 [History] allopurinoL [Zyloprim] 100 mg PO DAILY 07/11/19 [History] busPIRone HCl [Buspirone HCl] 7.5 mg PO BID 07/11/19 [History] oxyCODONE HCl/Acetaminophen [Percocet 10-325 mg Tablet] 1 tab PO Q4H PRN 07/12/19 [History] Levothyroxine Sodium [Synthroid] 200 mcg PO DAILY 12/20/19 [History] Apixaban [Eliquis] 5 mg PO BID #0 12/21/19 [Rx] Fluticasone Propion/Salmeterol [Advair 250-50 Diskus] 1 puff INH BID 01/29/21 [History] Non-Formulary Medication [NF Drug] 1 puff INH DAILY 01/29/21 [History] Albuterol/Ipratropium [DuoNeb 3.0-0.5 MG/3 ML] 1 inh NEB TID 01/30/21 [History] Lubiprostone 24 mcg PO BID 01/30/21 [History] Oxybutynin 5 mg PO BID 01/30/21 [History] Pregabalin [Lyrica] 150 mg PO TID 01/30/21 [History] Torsemide 20 mg PO DAILY PRN 01/30/21 [History] guaiFENesin [Mucinex] 1,200 mg PO BID PRN 01/30/21 [History] Furosemide 40 mg PO DAILY #30 tablet 02/10/21 [Rx] Patient Handouts: Chronic Obstructive Pulmonary Disease, Heart Failure Action Plan, Steps to Quit Smoking, Respiratory Syncytial Virus Infection, Adult Referrals: Candi Mancini MD [Primary Care Provider] - (Call the clinic on [address] to make an appointment to follow-up with in 1 week.) Momo Schmidt, [Ordering Only Provider] - (Follow up as needed.) - Discharge Summary/Plan Comment DC Time >30 min.: Yes Total # of Minutes for Discharge Time: 50 - General Info Date of Service: 02/10/21 Admission Dx/Problem (Free Text: Admission Diagnosis/Problem Admission Diagnosis/Problem Respiratory failure with hypoxia and hypercapnia Subjective Update: The patient has been doing well. He has no complaints. The patient feels like he can safely go home with home oxygen. Functional Status: Reports: Pain Controlled, Tolerating Diet - Review of Systems General: Reports: No Symptoms HEENT: Reports: No Symptoms Pulmonary: Reports: No Symptoms Cardiovascular: Reports: No Symptoms Gastrointestinal: Reports: No Symptoms Genitourinary: Reports: No Symptoms Musculoskeletal: Reports: No Symptoms Skin: Reports: No Symptoms Neurological: Reports: No Symptoms Psychiatric: Reports: No Symptoms - Patient Data Vitals - Most Recent: Last Vital Signs Temp 36.7 C 02/09/21 05:41 Pulse 65 02/09/21 05:41 Resp 20 02/09/21 05:40 BP 118/70 02/09/21 08:08 Pulse Ox 91 L 02/09/21 06:19 Weight - Most Recent: 115.893 kg I&O - Last 24 hours: Intake & Output 02/08/21 02/09/21 02/09/21 22:59 06:59 14:59 Intake Total 728 500 Output Total 1450 0 1000 Balance -722 500 -1000 Lab Results - Last 24 hrs: Laboratory Results - last 24 hr 02/09/21 Range/Units 07:30 WBC 6.69 (4.23-9.07) K/mm3 RBC 4.28 L (4.63-6.08) M/mm3 Hgb 12.8 L (13.7-17.5) gm/dl Hct 40.4 (40.1-51.0) % MCV 94.4 H (79.0-92.2) fl MCH 29.9 (25.7-32.2) pg MCHC 31.7 L (32.2-35.5) g/dl RDW Std Deviation 47.7 H (35.1-43.9) fL Plt Count 249 (163-337) K/mm3 MPV 11.0 (9.4-12.3) fl Neut % (Auto) 59.0 (34.0-67.9) % Lymph % (Auto) 23.8 (21.8-53.1) % [place] % (Auto) 10.6 (5.3-12.2) % Eos % (Auto) 4.9 (0.8-7.0) Baso % (Auto) 1.0 (0.1-1.2) % Neut # (Auto) 3.94 (1.78-5.38) K/mm3 Lymph # (Auto) 1.59 (1.32-3.57) K/mm3 [place] # (Auto) 0.71 (0.30-0.82) K/mm3 Eos # (Auto) 0.33 (0.04-0.54) K/mm3 Baso # (Auto) 0.07 (0.01-0.08) K/mm3 Med Orders - Current: Current Medications Acetaminophen (Acetaminophen 325 Mg Tab) 650 mg PO Q6H PRN PRN Reason: Pain (Mild 1-3)/fever Last Admin: 02/04/21 10:18 Dose: 650 mg Documented by: Albuterol/Ipratropium (Albuterol/Ipratropium 3.0-0.5 Mg/3 Ml Neb Soln) 3 ml NEB Q4HRRT PRN PRN Reason: Shortness Of Breath/wheezing Last Admin: 02/06/21 08:16 Dose: 3 ml Documented by: Albuterol/Ipratropium (Albuterol/Ipratropium 3.0-0.5 Mg/3 Ml Neb Soln) 3 ml NEB TIDRT [facility] Last Admin: 02/09/21 06:17 Dose: 3 ml Documented by: Allopurinol (Allopurinol 100 Mg Tab) 100 mg PO DAILY [facility] Last Admin: 02/09/21 08:08 Dose: 100 mg Documented by: Amlodipine Besylate (Amlodipine 10 Mg Tab) 10 mg PO BEDTIME [facility] Last Admin: 02/08/21 20:50 Dose: 10 mg Documented by: Apixaban (Apixaban 5 Mg Tab) 5 mg PO BID [facility] Last Admin: 02/09/21 08:11 Dose: 5 mg Documented by: Aspirin (Aspirin 81 Mg Tab.Ec) 81 mg PO DAILY [facility] Last Admin: 02/09/21 08:08 Dose: 81 mg Documented by: Atorvastatin Calcium (Atorvastatin 20 Mg Tab) 20 mg PO DAILY [facility] Last Admin: 02/09/21 08:08 Dose: 20 mg Documented by: Buspirone HCl (Buspirone 5 Mg Tab) 7.5 mg PO BID [facility] Last Admin: 02/09/21 08:08 Dose: 7.5 mg Documented by: Cholecalciferol (Cholecalciferol (Vitamin D3) 25 Mcg Tab) 50 mcg PO DAILY [facility] Last Admin: 02/09/21 08:11 Dose: 50 mcg Documented by: Citalopram Hydrobromide (Citalopram 20 Mg Tab) 40 mg PO BEDTIME [facility] Last Admin: 02/08/21 20:49 Dose: 40 mg Documented by: Docusate Sodium (Docusate Sodium 100 Mg Cap) 100 mg PO BID PRN PRN Reason: Constipation Last Admin: 02/07/21 07:57 Dose: 100 mg Documented by: Doxazosin Mesylate (Doxazosin 2 Mg Tab) 2 mg PO BEDTIME [facility] Last Admin: 02/08/21 20:53 Dose: 2 mg Documented by: Furosemide (Furosemide 100 Mg/10 Ml Sdv) 80 mg IVPUSH BIDDIURETIC [facility] Last Admin: 02/09/21 05:37 Dose: 80 mg Documented by: Guaifenesin (Guaifenesin 600 Mg Tab.Er) 1,200 mg PO BID [facility] Last Admin: 02/09/21 08:11 Dose: 1,200 mg Documented by: Guaifenesin/Dextromethorphan (Guaifenesin/Dextromethorphan 100-10 Mg/5 Ml Soln 5 Ml Cup) 10 ml PO QID PRN PRN Reason: Cough Last Admin: 02/03/21 06:00 Dose: 10 ml Documented by: Hydralazine HCl (Hydralazine 20 Mg/Ml Sdv) 10 mg IVPUSH Q4H PRN PRN Reason: Hypertension Promethazine HCl 12.5 mg/ (Sodium Chloride) 50.5 mls @ 100 mls/hr IV Q6H PRN PRN Reason: Nausea/Vomiting Isosorbide Mononitrate (Isosorbide Mononitrate 30 Mg Tab.Er) 30 mg PO DAILY [facility] Last Admin: 02/09/21 08:08 Dose: 30 mg Documented by: Levothyroxine Sodium (Levothyroxine 100 Mcg Tab) 200 mcg PO ACBREAKFAST [facility] Last Admin: 02/09/21 05:39 Dose: 200 mcg Documented by: Lubiprostone (Lubiprostone 24 Mcg Cap) 24 mcg PO BID [facility] Last Admin: 02/09/21 08:07 Dose: 24 mcg Documented by: Mometasone Furoate/Formoterol Fumar (Formoterol/Mometasone 200-5 Mcg 8.8 Gm Inhaler) 2 puff IH BIDRT [facility] Last Admin: 02/09/21 06:18 Dose: 2 puff Documented by: Oxybutynin Chloride (Oxybutynin 5 Mg Tab) 5 mg PO BID [facility] Last Admin: 02/09/21 08:08 Dose: 5 mg Documented by: Oxycodone HCl (Oxycodone 5 Mg Tab) 10 mg PO Q4H PRN PRN Reason: Pain (moderate 4-6) Last Admin: 02/09/21 08:08 Dose: 10 mg Documented by: Pantoprazole Sodium (Pantoprazole 40 Mg Tab.Cr) 40 mg PO BIDAC [facility] Last Admin: 02/09/21 05:39 Dose: 40 mg Documented by: Suvorexant [Belsomra (] 20 Mg Tablet) 0 each PO BEDTIME PRN PRN Reason: Insomnia Potassium Chloride (Potassium Chloride 20 Meq Tab.Er) 20 meq PO DAILY [facility] Last Admin: 02/09/21 08:08 Dose: 20 meq Documented by: Pregabalin (Pregabalin 75 Mg Cap) 150 mg PO TID [facility] Last Admin: 02/09/21 08:08 Dose: 150 mg Documented by: Senna/Docusate Sodium (Docusate Sodium/Sennosides 50-8.6 Mg Tab) 2 tab PO BID PRN PRN Reason: Constipation Last Admin: 02/06/21 21:00 Dose: 2 tab Documented by: Sodium Chloride (Sodium Chloride 0.9% 10 Ml Syringe) 10 ml FLUSH ASDIRECTED PRN PRN Reason: Keep Vein Open Last Admin: 01/29/21 14:45 Dose: 10 ml Documented by: Tamsulosin HCl (Tamsulosin 0.4 Mg Cap.Er) 0.4 mg PO BEDTIME [facility] Last Admin: 02/08/21 20:50 Dose: 0.4 mg Documented by: Trazodone HCl (Trazodone 50 Mg Tab) 50 mg PO BEDTIME PRN PRN Reason: insomia Last Admin: 02/08/21 21:06 Dose: 50 mg Documented by: Discontinued Medications Albuterol (Albuterol 0.083% 2.5 Mg/3 Ml Neb Soln) 2.5 mg NEB ONETIME ONE Stop: 01/29/21 16:02 Last Admin: 01/29/21 16:26 Dose: 2.5 mg Documented by: Albuterol/Ipratropium (Albuterol/Ipratropium 3.0-0.5 Mg/3 Ml Neb Soln) 3 ml NEB TIDRT [facility] Allopurinol (Allopurinol 100 Mg Tab) 100 mg PO DAILY [facility] Last Admin: 01/30/21 12:11 Dose: Not Given Documented by: Apixaban (Apixaban 5 Mg Tab) 5 mg PO BID [facility] Last Admin: 01/30/21 12:06 Dose: Not Given Documented by: Aspirin (Aspirin 81 Mg Tab.Ec) 81 mg PO DAILY [facility] Last Admin: 01/30/21 12:06 Dose: Not Given Documented by: Atorvastatin Calcium (Atorvastatin 20 Mg Tab) 20 mg PO DAILY [facility] Last Admin: 01/30/21 12:10 Dose: Not Given Documented by: Buspirone HCl (Buspirone 5 Mg Tab) 7.5 mg PO BID [facility] Last Admin: 01/30/21 12:06 Dose: Not Given Documented by: Carvedilol (Carvedilol 3.125 Mg Tab) 3.125 mg PO BIDMEALS [facility] Last Admin: 01/30/21 12:06 Dose: Not Given Documented by: Cholecalciferol (Cholecalciferol (Vitamin D3) 25 Mcg Tab) 50 mcg PO DAILY [facility] Last Admin: 01/30/21 12:10 Dose: Not Given Documented by: Doxazosin Mesylate (Doxazosin 4 Mg Tab) 4 mg PO BEDTIME [facility] Last Admin: 01/30/21 12:05 Dose: Not Given Documented by: Enoxaparin Sodium (Enoxaparin 40 Mg/0.4 Ml Syringe) 40 mg SUBCUT DAILY [facility] Finasteride (Finasteride 5 Mg Tab) 5 mg PO DAILY [facility] Last Admin: 01/30/21 12:10 Dose: Not Given Documented by: Finasteride (Finasteride 5 Mg Tab) 5 mg PO DAILY [facility] Last Admin: 01/31/21 09:11 Dose: 5 mg Documented by: Furosemide (Furosemide 40 Mg/4 Ml Vial) 40 mg IVPUSH BID [facility] Last Admin: 01/30/21 12:09 Dose: Not Given Documented by: Furosemide (Furosemide 40 Mg/4 Ml Vial) 40 mg IVPUSH BID [facility] Last Admin: 01/31/21 09:14 Dose: 40 mg Documented by: Furosemide (Furosemide 100 Mg/10 Ml Sdv) 60 mg IVPUSH BIDDIURETIC [facility] Last Admin: 02/04/21 05:10 Dose: 60 mg Documented by: Furosemide (Furosemide 20 Mg/2 Ml Vial) 20 mg IVPUSH ONETIME ONE Stop: 02/04/21 10:01 Last Admin: 02/04/21 10:18 Dose: 20 mg Documented by: Guaifenesin (Guaifenesin 600 Mg Tab.Er) 1,200 mg PO BID PRN PRN Reason: Cough Last Admin: 02/01/21 09:22 Dose: 1,200 mg Documented by: Sodium Chloride (Normal Saline) 100 mls @ 60 mls/hr IV ASDIRECTED [facility] Last Admin: 01/29/21 15:50 Dose: 60 mls/hr Documented by: Ceftriaxone Sodium 1 gm/ (Sodium Chloride) 100 mls @ 200 mls/hr IV ONETIME ONE Stop: 01/29/21 16:51 Last Admin: 01/29/21 15:30 Dose: 200 mls/hr Documented by: Ceftriaxone Sodium 2 gm/ (Sodium Chloride) 100 mls @ 200 mls/hr IV Q24H [facility] Azithromycin 500 mg/ Sodium (Chloride) 250 mls @ 250 mls/hr IV Q24H [facility] Sodium Chloride (Normal Saline) 500 mls @ 250 mls/hr IV ONETIME ONE Stop: 01/30/21 00:41 Last Admin: 01/29/21 22:58 Dose: 250 mls/hr Documented by: Sodium Chloride (Normal Saline) Confirm Administered Dose 1,000 mls @ as directed .ROUTE .STK-MED ONE Stop: 01/29/21 22:48 Last Admin: 01/29/21 22:59 Dose: Not Given Documented by: Ceftriaxone Sodium 2 gm/ (Sodium Chloride) 100 mls @ 200 mls/hr IV Q24H [facility] Stop: 02/07/21 13:31 Last Admin: 02/07/21 13:15 Dose: 200 mls/hr Documented by: Azithromycin 500 mg/ Sodium (Chloride) 250 mls @ 250 mls/hr IV Q24H [facility] Stop: 02/04/21 14:59 Last Admin: 02/04/21 14:36 Dose: 250 mls/hr Documented by: Iopamidol (Iopamidol 755 Mg/Ml 100 Ml Bottle) 100 ml IVPUSH ONETIME ONE Stop: 01/29/21 15:30 Last Admin: 01/29/21 15:47 Dose: 100 ml Documented by: Isosorbide Mononitrate (Isosorbide Mononitrate 60 Mg Tab.Er) 60 mg PO BEDTIME [facility] Last Admin: 01/30/21 20:45 Dose: 60 mg Documented by: Levothyroxine Sodium (Levothyroxine 200 Mcg Tab) 200 mcg PO ACBREAKFAST [facility] Last Admin: 02/05/21 05:43 Dose: 200 mcg Documented by: Levothyroxine Sodium (Levothyroxine 25 Mcg Tab) 25 mcg PO DAILY [facility] Morphine Sulfate (Morphine 2 Mg/Ml Syringe) 2 mg IVPUSH Q4H PRN PRN Reason: Pain (severe 7-10) Stop: 01/30/21 16:55 Non-Formulary Medication (Naloxone Hcl [Narcan]) 4 mg NS ASDIRECTED PRN PRN Reason: Opioid Overdose Oxycodone HCl (Oxycodone 5 Mg Tab) 5 mg PO Q6H PRN PRN Reason: Pain (moderate 4-6) Last Admin: 01/30/21 10:14 Dose: 5 mg Documented by: Oxycodone HCl (Oxycodone 5 Mg Tab) 10 mg PO TID PRN PRN Reason: Pain (moderate 4-6) Last Admin: 01/31/21 09:13 Dose: 10 mg Documented by: Polyethylene Glycol (Polyethylene Glycol 3350 Powder 17 Gm Packet) gm PO Q72H [facility] Potassium Chloride (Potassium Chloride 20 Meq Tab.Er) 40 meq PO BID [facility] Stop: 02/02/21 21:01 Last Admin: 02/02/21 20:47 Dose: 40 meq Documented by: Pregabalin (Pregabalin 75 Mg Cap) 150 mg PO TID [facility] Last Admin: 01/30/21 12:10 Dose: Not Given Documented by: Sodium Chloride (Sodium Chloride 0.9% 10 Ml Syringe) 10 ml FLUSH ONETIME PRN PRN Reason: Keep Vein Open Last Admin: 01/29/21 15:47 Dose: 10 ml Documented by: Sodium Phosphate (Phosphorus #1 250 Mg Tab) 250 mg PO QID [facility] Stop: 01/30/21 17:01 Last Admin: 01/30/21 12:10 Dose: Not Given Documented by: Sodium Phosphate (Phosphorus #1 250 Mg Tab) 250 mg PO QID [facility] Stop: 01/30/21 21:01 Last Admin: 01/30/21 20:47 Dose: 250 mg Documented by: Zolpidem Tartrate (Zolpidem 5 Mg Tab) 2.5 mg PO BEDTIME PRN PRN Reason: Insomnia Stop: 02/01/21 21:01 - Exam Quality Assessment: Reports: Supplemental Oxygen, DVT Prophylaxis General: Reports: Alert, Oriented, Cooperative, No Acute Distress HEENT: Reports: Pupils Equal, Pupils Reactive, EOMI, Mucous Membr. Moist/[place] Neck: Reports: Supple, Trachea Midline Lungs: Reports: Clear to Auscultation, Normal Respiratory Effort Cardiovascular: Reports: Regular Rate, Regular Rhythm GI/Abdominal Exam: Normal Bowel Sounds, No Distention (Male) Exam: Deferred Rectal (Males) Exam: Deferred Back Exam: Reports: Normal Inspection, Full Range of Motion Extremities: Normal Inspection, No Pedal Edema Skin: Reports: Warm, Dry, Intact Neurological: Reports: No New Focal Deficit, Normal Gait, Normal Speech Psy/Mental Status: Reports: Alert, Normal Affect
--- NOTE | 2021-02-09 13:36 | PCM.PN ---
- General Info Date of Service: 02/09/21 Admission Dx/Problem (Free Text): Admission Diagnosis/Problem Admission Diagnosis/Problem Respiratory failure with hypoxia and hypercapnia Subjective Update: The patient is a 70-year-old gentleman who was admitted to acute hospitalization on January 29, 2021 with acute respiratory failure associated with hypoxia and initially was found to be positive for respiratory syncytial virus. The patient also had significant fluid overload and he was diuresed and has lost about 30 pounds. He says he is feeling better today. The patient has been tolerating his diet. He has no other complaints today. The patient will be retained in hospitalization 1 extra day. Functional Status: Reports: Pain Controlled, Tolerating Diet. Denies: New Symptoms - Review of Systems General: Reports: Weakness HEENT: Reports: No Symptoms Pulmonary: Reports: Cough Cardiovascular: Reports: No Symptoms Gastrointestinal: Reports: No Symptoms Genitourinary: Reports: No Symptoms Musculoskeletal: Reports: No Symptoms Skin: Reports: No Symptoms Neurological: Reports: No Symptoms Psychiatric: Reports: No Symptoms - Patient Data Vitals - Most Recent: Last Vital Signs Temp 36.8 C 02/09/21 08:10 Pulse 58 L 02/09/21 08:10 Resp 16 02/09/21 08:10 BP 118/70 02/09/21 08:10 Pulse Ox 93 L 02/09/21 08:10 Weight - Most Recent: 115.893 kg I&O - Last 24 Hours: Intake & Output 02/08/21 02/09/21 02/09/21 22:59 06:59 14:59 Intake Total 728 500 650 Output Total 1450 0 1000 Balance -722 500 -350 Lab Results Last 24 Hours: Laboratory Results - last 24 hr 02/09/21 02/09/21 Range/Units 07:30 07:30 WBC 6.69 (4.23-9.07) K/mm3 RBC 4.28 L (4.63-6.08) M/mm3 Hgb 12.8 L (13.7-17.5) gm/dl Hct 40.4 (40.1-51.0) % MCV 94.4 H (79.0-92.2) fl MCH 29.9 (25.7-32.2) pg MCHC 31.7 L (32.2-35.5) g/dl RDW Std Deviation 47.7 H (35.1-43.9) fL Plt Count 249 (163-337) K/mm3 MPV 11.0 (9.4-12.3) fl Neut % (Auto) 59.0 (34.0-67.9) % Lymph % (Auto) 23.8 (21.8-53.1) % Isabella % (Auto) 10.6 (5.3-12.2) % Eos % (Auto) 4.9 (0.8-7.0) Baso % (Auto) 1.0 (0.1-1.2) % Neut # (Auto) 3.94 (1.78-5.38) K/mm3 Lymph # (Auto) 1.59 (1.32-3.57) K/mm3 Isabella # (Auto) 0.71 (0.30-0.82) K/mm3 Eos # (Auto) 0.33 (0.04-0.54) K/mm3 Baso # (Auto) 0.07 (0.01-0.08) K/mm3 Sodium 140 (136-145) mEq/L Potassium 3.8 (3.5-5.1) mEq/L Chloride 102 (98-107) mEq/L Carbon Dioxide 31 (21-32) mEq/L Anion Gap 10.8 (5-15) BUN 13 (7-18) mg/dL Creatinine 1.3 (0.7-1.3) mg/dL Est Cr Clr Drug Dosing 62.29 mL/min Estimated GFR (MDRD) 54 (>60) mL/min BUN/Creatinine Ratio 10.0 L (14-18) Glucose 92 (70-99) mg/dL Calcium 9.3 (8.5-10.1) mg/dL Med Orders - Current: Current Medications Acetaminophen (Acetaminophen 325 Mg Tab) 650 mg PO Q6H PRN PRN Reason: Pain (Mild 1-3)/fever Last Admin: 02/04/21 10:18 Dose: 650 mg Documented by: Albuterol/Ipratropium (Albuterol/Ipratropium 3.0-0.5 Mg/3 Ml Neb Soln) 3 ml NEB Q4HRRT PRN PRN Reason: Shortness Of Breath/wheezing Last Admin: 02/06/21 08:16 Dose: 3 ml Documented by: Albuterol/Ipratropium (Albuterol/Ipratropium 3.0-0.5 Mg/3 Ml Neb Soln) 3 ml NEB TIDRT [facility] Last Admin: 02/09/21 06:17 Dose: 3 ml Documented by: Allopurinol (Allopurinol 100 Mg Tab) 100 mg PO DAILY [facility] Last Admin: 02/09/21 08:08 Dose: 100 mg Documented by: Amlodipine Besylate (Amlodipine 10 Mg Tab) 10 mg PO BEDTIME [facility] Last Admin: 02/08/21 20:50 Dose: 10 mg Documented by: Apixaban (Apixaban 5 Mg Tab) 5 mg PO BID [facility] Last Admin: 02/09/21 08:11 Dose: 5 mg Documented by: Aspirin (Aspirin 81 Mg Tab.Ec) 81 mg PO DAILY [facility] Last Admin: 02/09/21 08:08 Dose: 81 mg Documented by: Atorvastatin Calcium (Atorvastatin 20 Mg Tab) 20 mg PO DAILY [facility] Last Admin: 02/09/21 08:08 Dose: 20 mg Documented by: Buspirone HCl (Buspirone 5 Mg Tab) 7.5 mg PO BID [facility] Last Admin: 02/09/21 08:08 Dose: 7.5 mg Documented by: Cholecalciferol (Cholecalciferol (Vitamin D3) 25 Mcg Tab) 50 mcg PO DAILY [facility] Last Admin: 02/09/21 08:11 Dose: 50 mcg Documented by: Citalopram Hydrobromide (Citalopram 20 Mg Tab) 40 mg PO BEDTIME [facility] Last Admin: 02/08/21 20:49 Dose: 40 mg Documented by: Docusate Sodium (Docusate Sodium 100 Mg Cap) 100 mg PO BID PRN PRN Reason: Constipation Last Admin: 02/07/21 07:57 Dose: 100 mg Documented by: Doxazosin Mesylate (Doxazosin 2 Mg Tab) 2 mg PO BEDTIME [facility] Last Admin: 02/08/21 20:53 Dose: 2 mg Documented by: Furosemide (Furosemide 100 Mg/10 Ml Sdv) 80 mg IVPUSH BIDDIURETIC [facility] Last Admin: 02/09/21 05:37 Dose: 80 mg Documented by: Guaifenesin (Guaifenesin 600 Mg Tab.Er) 1,200 mg PO BID [facility] Last Admin: 02/09/21 08:11 Dose: 1,200 mg Documented by: Guaifenesin/Dextromethorphan (Guaifenesin/Dextromethorphan 100-10 Mg/5 Ml Soln 5 Ml Cup) 10 ml PO QID PRN PRN Reason: Cough Last Admin: 02/03/21 06:00 Dose: 10 ml Documented by: Hydralazine HCl (Hydralazine 20 Mg/Ml Sdv) 10 mg IVPUSH Q4H PRN PRN Reason: Hypertension Promethazine HCl 12.5 mg/ (Sodium Chloride) 50.5 mls @ 100 mls/hr IV Q6H PRN PRN Reason: Nausea/Vomiting Isosorbide Mononitrate (Isosorbide Mononitrate 30 Mg Tab.Er) 30 mg PO DAILY [facility] Last Admin: 02/09/21 08:08 Dose: 30 mg Documented by: Levothyroxine Sodium (Levothyroxine 100 Mcg Tab) 200 mcg PO ACBREAKFAST [facility] Last Admin: 02/09/21 05:39 Dose: 200 mcg Documented by: Lubiprostone (Lubiprostone 24 Mcg Cap) 24 mcg PO BID [facility] Last Admin: 02/09/21 08:07 Dose: 24 mcg Documented by: Mometasone Furoate/Formoterol Fumar (Formoterol/Mometasone 200-5 Mcg 8.8 Gm Inhaler) 2 puff IH BIDRT [facility] Last Admin: 02/09/21 06:18 Dose: 2 puff Documented by: Oxybutynin Chloride (Oxybutynin 5 Mg Tab) 5 mg PO BID [facility] Last Admin: 02/09/21 08:08 Dose: 5 mg Documented by: Oxycodone HCl (Oxycodone 5 Mg Tab) 10 mg PO Q4H PRN PRN Reason: Pain (moderate 4-6) Last Admin: 02/09/21 08:08 Dose: 10 mg Documented by: Pantoprazole Sodium (Pantoprazole 40 Mg Tab.Cr) 40 mg PO BIDAC [facility] Last Admin: 02/09/21 05:39 Dose: 40 mg Documented by: Suvorexant [Belsomra (] 20 Mg Tablet) 0 each PO BEDTIME PRN PRN Reason: Insomnia Potassium Chloride (Potassium Chloride 20 Meq Tab.Er) 20 meq PO DAILY [facility] Last Admin: 02/09/21 08:08 Dose: 20 meq Documented by: Pregabalin (Pregabalin 75 Mg Cap) 150 mg PO TID [facility] Last Admin: 02/09/21 08:08 Dose: 150 mg Documented by: Senna/Docusate Sodium (Docusate Sodium/Sennosides 50-8.6 Mg Tab) 2 tab PO BID PRN PRN Reason: Constipation Last Admin: 02/06/21 21:00 Dose: 2 tab Documented by: Sodium Chloride (Sodium Chloride 0.9% 10 Ml Syringe) 10 ml FLUSH ASDIRECTED PRN PRN Reason: Keep Vein Open Last Admin: 01/29/21 14:45 Dose: 10 ml Documented by: Tamsulosin HCl (Tamsulosin 0.4 Mg Cap.Er) 0.4 mg PO BEDTIME [facility] Last Admin: 02/08/21 20:50 Dose: 0.4 mg Documented by: Trazodone HCl (Trazodone 50 Mg Tab) 50 mg PO BEDTIME PRN PRN Reason: insomia Last Admin: 02/08/21 21:06 Dose: 50 mg Documented by: Discontinued Medications Albuterol (Albuterol 0.083% 2.5 Mg/3 Ml Neb Soln) 2.5 mg NEB ONETIME ONE Stop: 01/29/21 16:02 Last Admin: 01/29/21 16:26 Dose: 2.5 mg Documented by: Albuterol/Ipratropium (Albuterol/Ipratropium 3.0-0.5 Mg/3 Ml Neb Soln) 3 ml NEB TIDRT [facility] Allopurinol (Allopurinol 100 Mg Tab) 100 mg PO DAILY [facility] Last Admin: 01/30/21 12:11 Dose: Not Given Documented by: Apixaban (Apixaban 5 Mg Tab) 5 mg PO BID [facility] Last Admin: 01/30/21 12:06 Dose: Not Given Documented by: Aspirin (Aspirin 81 Mg Tab.Ec) 81 mg PO DAILY [facility] Last Admin: 01/30/21 12:06 Dose: Not Given Documented by: Atorvastatin Calcium (Atorvastatin 20 Mg Tab) 20 mg PO DAILY [facility] Last Admin: 01/30/21 12:10 Dose: Not Given Documented by: Buspirone HCl (Buspirone 5 Mg Tab) 7.5 mg PO BID [facility] Last Admin: 01/30/21 12:06 Dose: Not Given Documented by: Carvedilol (Carvedilol 3.125 Mg Tab) 3.125 mg PO BIDMEALS [facility] Last Admin: 01/30/21 12:06 Dose: Not Given Documented by: Cholecalciferol (Cholecalciferol (Vitamin D3) 25 Mcg Tab) 50 mcg PO DAILY [facility] Last Admin: 01/30/21 12:10 Dose: Not Given Documented by: Doxazosin Mesylate (Doxazosin 4 Mg Tab) 4 mg PO BEDTIME [facility] Last Admin: 01/30/21 12:05 Dose: Not Given Documented by: Enoxaparin Sodium (Enoxaparin 40 Mg/0.4 Ml Syringe) 40 mg SUBCUT DAILY [facility] Finasteride (Finasteride 5 Mg Tab) 5 mg PO DAILY [facility] Last Admin: 01/30/21 12:10 Dose: Not Given Documented by: Finasteride (Finasteride 5 Mg Tab) 5 mg PO DAILY [facility] Last Admin: 01/31/21 09:11 Dose: 5 mg Documented by: Furosemide (Furosemide 40 Mg/4 Ml Vial) 40 mg IVPUSH BID [facility] Last Admin: 01/30/21 12:09 Dose: Not Given Documented by: Furosemide (Furosemide 40 Mg/4 Ml Vial) 40 mg IVPUSH BID [facility] Last Admin: 01/31/21 09:14 Dose: 40 mg Documented by: Furosemide (Furosemide 100 Mg/10 Ml Sdv) 60 mg IVPUSH BIDDIURETIC [facility] Last Admin: 02/04/21 05:10 Dose: 60 mg Documented by: Furosemide (Furosemide 20 Mg/2 Ml Vial) 20 mg IVPUSH ONETIME ONE Stop: 02/04/21 10:01 Last Admin: 02/04/21 10:18 Dose: 20 mg Documented by: Guaifenesin (Guaifenesin 600 Mg Tab.Er) 1,200 mg PO BID PRN PRN Reason: Cough Last Admin: 02/01/21 09:22 Dose: 1,200 mg Documented by: Sodium Chloride (Normal Saline) 100 mls @ 60 mls/hr IV ASDIRECTED [facility] Last Admin: 01/29/21 15:50 Dose: 60 mls/hr Documented by: Ceftriaxone Sodium 1 gm/ (Sodium Chloride) 100 mls @ 200 mls/hr IV ONETIME ONE Stop: 01/29/21 16:51 Last Admin: 01/29/21 15:30 Dose: 200 mls/hr Documented by: Ceftriaxone Sodium 2 gm/ (Sodium Chloride) 100 mls @ 200 mls/hr IV Q24H [facility] Azithromycin 500 mg/ Sodium (Chloride) 250 mls @ 250 mls/hr IV Q24H [facility] Sodium Chloride (Normal Saline) 500 mls @ 250 mls/hr IV ONETIME ONE Stop: 01/30/21 00:41 Last Admin: 01/29/21 22:58 Dose: 250 mls/hr Documented by: Sodium Chloride (Normal Saline) Confirm Administered Dose 1,000 mls @ as directed .ROUTE .STK-MED ONE Stop: 01/29/21 22:48 Last Admin: 01/29/21 22:59 Dose: Not Given Documented by: Ceftriaxone Sodium 2 gm/ (Sodium Chloride) 100 mls @ 200 mls/hr IV Q24H [facility] Stop: 02/07/21 13:31 Last Admin: 02/07/21 13:15 Dose: 200 mls/hr Documented by: Azithromycin 500 mg/ Sodium (Chloride) 250 mls @ 250 mls/hr IV Q24H [facility] Stop: 02/04/21 14:59 Last Admin: 02/04/21 14:36 Dose: 250 mls/hr Documented by: Iopamidol (Iopamidol 755 Mg/Ml 100 Ml Bottle) 100 ml IVPUSH ONETIME ONE Stop: 01/29/21 15:30 Last Admin: 01/29/21 15:47 Dose: 100 ml Documented by: Isosorbide Mononitrate (Isosorbide Mononitrate 60 Mg Tab.Er) 60 mg PO BEDTIME [facility] Last Admin: 01/30/21 20:45 Dose: 60 mg Documented by: Levothyroxine Sodium (Levothyroxine 200 Mcg Tab) 200 mcg PO ACBREAKFAST [facility] Last Admin: 02/05/21 05:43 Dose: 200 mcg Documented by: Levothyroxine Sodium (Levothyroxine 25 Mcg Tab) 25 mcg PO DAILY [facility] Morphine Sulfate (Morphine 2 Mg/Ml Syringe) 2 mg IVPUSH Q4H PRN PRN Reason: Pain (severe 7-10) Stop: 01/30/21 16:55 Non-Formulary Medication (Naloxone Hcl [Narcan]) 4 mg NS ASDIRECTED PRN PRN Reason: Opioid Overdose Oxycodone HCl (Oxycodone 5 Mg Tab) 5 mg PO Q6H PRN PRN Reason: Pain (moderate 4-6) Last Admin: 01/30/21 10:14 Dose: 5 mg Documented by: Oxycodone HCl (Oxycodone 5 Mg Tab) 10 mg PO TID PRN PRN Reason: Pain (moderate 4-6) Last Admin: 01/31/21 09:13 Dose: 10 mg Documented by: Polyethylene Glycol (Polyethylene Glycol 3350 Powder 17 Gm Packet) gm PO Q72H [facility] Potassium Chloride (Potassium Chloride 20 Meq Tab.Er) 40 meq PO BID [facility] Stop: 02/02/21 21:01 Last Admin: 02/02/21 20:47 Dose: 40 meq Documented by: Pregabalin (Pregabalin 75 Mg Cap) 150 mg PO TID [facility] Last Admin: 01/30/21 12:10 Dose: Not Given Documented by: Sodium Chloride (Sodium Chloride 0.9% 10 Ml Syringe) 10 ml FLUSH ONETIME PRN PRN Reason: Keep Vein Open Last Admin: 01/29/21 15:47 Dose: 10 ml Documented by: Sodium Phosphate (Phosphorus #1 250 Mg Tab) 250 mg PO QID [facility] Stop: 01/30/21 17:01 Last Admin: 01/30/21 12:10 Dose: Not Given Documented by: Sodium Phosphate (Phosphorus #1 250 Mg Tab) 250 mg PO QID [facility] Stop: 01/30/21 21:01 Last Admin: 01/30/21 20:47 Dose: 250 mg Documented by: Zolpidem Tartrate (Zolpidem 5 Mg Tab) 2.5 mg PO BEDTIME PRN PRN Reason: Insomnia Stop: 02/01/21 21:01 - Exam Quality Assessment: Supplemental Oxygen, DVT Prophylaxis General: Alert, Oriented, Cooperative HEENT: Pupils Equal, Pupils Reactive, EOMI. No: Mucous Membr. Moist/[place] (Dry) Neck: Supple, Trachea Midline Lungs: Clear to Auscultation, Normal Respiratory Effort Cardiovascular: Regular Rate, Regular Rhythm GI/Abdominal Exam: Normal Bowel Sounds, Soft, Non-Tender, No Distention (Male) Exam: Deferred Back Exam: Normal Inspection, Full Range of Motion Extremities: Normal Inspection, Normal Range of Motion, No Pedal Edema Skin: Warm, Dry, Intact Neurological: No New Focal Deficit, Normal Gait Psy/Mental Status: Alert, Normal Affect, Normal Mood - Patient Data Lab Results Last 24 hrs: Laboratory Results - last 24 hr 02/09/21 02/09/21 Range/Units 07:30 07:30 WBC 6.69 (4.23-9.07) K/mm3 RBC 4.28 L (4.63-6.08) M/mm3 Hgb 12.8 L (13.7-17.5) gm/dl Hct 40.4 (40.1-51.0) % MCV 94.4 H (79.0-92.2) fl MCH 29.9 (25.7-32.2) pg MCHC 31.7 L (32.2-35.5) g/dl RDW Std Deviation 47.7 H (35.1-43.9) fL Plt Count 249 (163-337) K/mm3 MPV 11.0 (9.4-12.3) fl Neut % (Auto) 59.0 (34.0-67.9) % Lymph % (Auto) 23.8 (21.8-53.1) % Isabella % (Auto) 10.6 (5.3-12.2) % Eos % (Auto) 4.9 (0.8-7.0) Baso % (Auto) 1.0 (0.1-1.2) % Neut # (Auto) 3.94 (1.78-5.38) K/mm3 Lymph # (Auto) 1.59 (1.32-3.57) K/mm3 Isabella # (Auto) 0.71 (0.30-0.82) K/mm3 Eos # (Auto) 0.33 (0.04-0.54) K/mm3 Baso # (Auto) 0.07 (0.01-0.08) K/mm3 Sodium 140 (136-145) mEq/L Potassium 3.8 (3.5-5.1) mEq/L Chloride 102 (98-107) mEq/L Carbon Dioxide 31 (21-32) mEq/L Anion Gap 10.8 (5-15) BUN 13 (7-18) mg/dL Creatinine 1.3 (0.7-1.3) mg/dL Est Cr Clr Drug Dosing 62.29 mL/min Estimated GFR (MDRD) 54 (>60) mL/min BUN/Creatinine Ratio 10.0 L (14-18) Glucose 92 (70-99) mg/dL Calcium 9.3 (8.5-10.1) mg/dL Result Diagrams: 02/09/21 07:30 02/09/21 07:30 Sepsis Event Note - Evaluation Sepsis Screening Result: No Definite Risk - Focused Exam Vital Signs: Vital Signs Temp Pulse Resp BP Pulse Ox Pulse Ox 02/09/21 08:10 36.8 C 58 L 16 118/70 93 L 02/09/21 08:08 118/70 02/09/21 06:19 91 L 02/09/21 05:41 36.7 C 65 95 02/09/21 05:40 63 20 113/79 96 - Problem List & Annotations (1) Acute respiratory failure with hypoxia SNOMED Code(s): 57444879, 857060157 Code(s): J96.01 - ACUTE RESPIRATORY FAILURE WITH HYPOXIA Status: Acute Priority: High Current Visit: Yes (2) RSV (respiratory syncytial virus infection) SNOMED Code(s): 94770801 Code(s): B97.4 - RESPIRATORY SYNCYTIAL VIRUS CAUSING DISEASES CLASSD [id number] Status: Acute Priority: High Current Visit: Yes (3) Atrial fibrillation SNOMED Code(s): 58964291 Code(s): I48.91 - UNSPECIFIED ATRIAL FIBRILLATION Status: Chronic Priority: Medium Current Visit: Yes Qualifiers: Atrial fibrillation type: unspecified Qualified Code(s): I48.91 - Unspecified atrial fibrillation - Problem List Review Problem List Initiated/Reviewed/Updated: Yes - Assessment Assessment:: 02/04/2021 This is a 70-year-old male admitted to the floor for acute hypoxemic respiratory failure and found to be RSV positive. There was a questionable pneumonia on imaging and he was started on azithromycin and Rocephin. He will complete his azithromycin today and will continue Rocephin for a total of 7 days. His CRP today is up to 15 but there is no leukocytosis. We will recheck a procalcitonin as there was an elevation during his stay, although minimal. We have been actively diuresing him and there has not been a very impressive output. Patient reportedly was drinking significant amount of free water and is now on a fluid restriction. We will increase his Lasix dosing to 80 mg twice daily diuretic timing and increase his XAVIER monitoring to strict. He remains on 3 L of oxygen. He states he is not on oxygen at baseline. Echocardiogram was obtained but was very poor imaging. 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 He does report orthopnea and swelling. We will put RAHUL verenice on and treat him as a CHF exacerbation. Length of stay likely 1 to 2 days pending continue diuresis and wean of oxygen. 02/05/2021 70-year-old male admitted to the floor for RSV and questionable pneumonia. He completed azithromycin and will continue 7 days of Rocephin. He is also noted to have rather significant edema we have increase his diuretics to 80 mg twice daily, which has improved his output. He states he is feeling better. He is down 10 pounds from admission. He continues on a 2 L fluid restriction. White count today was 7.02. Hemoglobin is 12.2. Platelet 174,000. Neutrophils are 68.4%. Sodium is 141. Potassium 3.7. Chloride 104. Carbon dioxide 31. Anion gap is 9.7. BUN is 14. Creatinine 1.0. GFR greater than 60. Glucose 91. Magnesium 2.1. CRP is 12.7. Procalcitonin yesterday was 0.16 which has improved since his prior procalcitonin. proBNP was 1490, which is improved from 1924 on admission. We will continue diuresis with Lasix and supportive care for his. Length of stay likely 1-2 more days. 02/06/2021 This is a 70-year-old male mated to the floor for acute hypoxemic respiratory failure and RSV. He also had a questionable pneumonia which was treated with azithromycin and he continues on Rocephin. This will stop after 7 days of treatment. Therapy saw him and stated he is at baseline. I will continue to evaluate. He continues on 80 mg Lasix twice daily and continues to diurese. He is down over 12 pounds from admission. Continues with 2 L fluid restriction. Labs today show WBC of 6.79. Hemoglobin 11.4. Platelet 208,000. Neutrophils are normal at 65.9. Sodium is 142. Potassium is 3.8. Chloride 105. Carbon dioxide 30. Anion gap is 10.8. BUN is 13. Creatinine is 1.0. GFR is greater than 60. CRP is down to 7.9. We will discontinue continuous pulse oximetry but continue telemetry as we are diuresing. We will pulse ox per protocol with vital signs. Length of stay likely 1 to 2 days pending oxygen improvements and continued diuresis. 02/07/2021 The patient is a 70-year-old gentleman who was admitted secondary to acute respiratory failure due to respiratory syncytial virus. The patient is currently anticoagulated due to his atrial fibrillation with the use of the Eliquis. Patient also has heart failure and has been diuresed. The patient is also is taking isosorbide and for him this will be continued. The patient will have his oxygen supply to keep his saturations around 92%. The patient will likely need to have oxygen when able to go home. He will likely be appropriate for discharge in 1 to 2 days. He has been encouraged to ambulate. The patient was instructed in the use of the incentive spirometer. 02/08/2021 70-year-old male admitted secondary to acute respiratory failure from RSV and who is currently being diuresed due to heart failure and edema. He will likely require oxygen at discharge. His pedal edema has greatly improved. We will continue to diurese through today. White count is 7.19. Hemoglobin 12.2. Plate lets are 244,000. Neutrophils are 63.3%. Sodium 142. Potassium 4.2. Chloride 104. Carbon dioxide 30. Anion gap 12.2. BUN is 14. Creatinine 1.1. GFR greater than 60. Glucose 88. Calcium 9.2. CRP is 2.4. Likely discharge 1 to 2 days pending continued improvement/diuresis. 02/09/2021 The patient is a 70-year-old gentleman who is doing better today. He is still requiring at least 2 L of oxygen to help maintain his saturations. His oxygen supply will be titrated to keep his saturations around 92%. I have also instructed the patient on the use of the incentive spirometer and Acapella. We will continue with fluid restriction. Continue on Lasix. The patient is also anticoagulated on Eliquis. This will be continued. The patient should be appropriate for discharge in 1 to 2 days depending upon his oxygen requirements. - Plan Plan:: Patient is a 70-year-old male with a history of hypertension, COPD, CHF, atrial fibrillation, and chronic back pain who presented to the ER due to worsening shortness of breath. Assessment and plan: Acute hypoxic respiratory failure Etiology likely a combination of RSV infection induced, CHF exacerbation, pneumonia, and COPD Repeat chest x-ray on the showed increasing density within the left upper chest from prior study which may represent an area of pneumonia. Patient has had improvement in his fevers since starting antibiotics. Last high temperature was 100.8 on 01/31 at 0800 hrs. In the ER, he had a SpO2 89% with 6L CTA chest - NO PE; small parenchymal densities within both lower lungs as well as left upper lung Pulse ox Continues on 2L CHF, preserved ejection fraction Murmur 12+ pound weight loss since admission BNP 1924 on admission; recheck 1419 CXR - cardiomegaly with mild pulmonary vascular congestion. Troponin < 0.017 x [address] elevation lasix 80mg po bid is on hold Increased lasix to 80mg iv biddiuretic. Intake and output - strict Follow electrolytes Echocardiogram showed a normal left ejection fraction of 55 to 60%. No mention of diastolic dysfunction. The right ventricle systolic pressure was normal at 32.4 mmHg. Technically difficult study. Suspect normal LV systolic function. Minimal valvular disease. Potassium was supplemented Pneumonia Afebrile last 48 hours CXR on 01/31/2021 showed mild increasing central lung markings possibly due to mild pulmonary vascular congestion. Increasing density within the left upper chest from prior study which may represent an area of pneumonia versus asymmetric pulmonary vascular congestion. Normal white count Procalcitonin increased from less than 0.05 to 0.23; re-check 0.16 influenza A and B negative RSV positive Covid 19 negative. He has been fully vaccinated against covid 19 His fever could result from RSV infection or secondary bacterial pneumonia Rocephin x7 days azithromycin x5 days (completed) Droplet isolation COPD Stable Continue inhalers Atrial fib Heart rate is controlled nebivolol 2.5mg daily Continue Eliquis 5mg bid patient does have thrombocytopenia with platelet count of 90,000. Will follow closely for bleeding. Chronic back pain Home medications include trazodone 50 mg at bedtime and oxycodone/acetaminophen 10-325 mg every 4 hours as needed. I will change it to oxycodone 10 mg oral 6 times daily as needed, trazodone 50 mg at bedtime and Ambien 2.5 mg at bedtime. 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 HTN Continue amlodipine 10mg daily, imdur 60mg daily, nebivolol 2.5mg daily Hydralazine as needed Thrombocytopenia, Resolved 101->89-> 87->90-->97-->147-->174-->208-->247-->244 platelets 151 on 07/12/2019 No evidence of bleeding. Will continue his Eliquis but closely monitor. I will hold Eliquis if platelets continue to decrease or bleeding occurs. Monitor Elevation of D-dimer, 0.98 CTA chest - no PE. Patient has been on Eliquis. I would not like to do more work-up Continue Eliquis Hx of dysphagia Speech pathology consultno dysphagia. On mechanical soft because he does not have his dentures. Pulmonary nodule Repeat CT chest in 6 months DVT prophylaxis: Eliquis CODE STATUS: Full Prognosis: Good. Hopeful for discharge in next 1 to 2 days. Length of stay greater than 96 hours due to need for continued diuresis.
[2021-02-09] MEDS: Doxazosin 2 MG Tab PO SCH (21:04)
[2021-02-09] MEDS: amLODIPine 10 MG Tab PO SCH (21:05)
[2021-02-09] MEDS: Tamsulosin 0.4 MG Cap.ER PO SCH (21:05)
[2021-02-09] MEDS: traZODone 50 MG Tab PO PRN (21:06)
[2021-02-09] MEDS: Citalopram 20 MG Tab PO SCH (21:06)
[2021-02-10 04:59] VITALS: PULSE 78
[2021-02-10] MEDS: Furosemide 100 MG/10 ML SDV IVPUSH SCH (06:04)
[2021-02-10] MEDS: Pantoprazole 40 MG Tab.CR PO SCH (06:04)
[2021-02-10] MEDS: Levothyroxine 100 MCG Tab PO SCH (06:04)
[2021-02-10] MEDS: Albuterol/Ipratropium 3.0-0.5 MG/3 ML Neb Soln NEB SCH (06:45)
[2021-02-10] MEDS: Formoterol/Mometasone 200-5 MCG 8.8 GM Inhaler IH SCH (06:45)
[2021-02-10] MEDS: Lubiprostone 24 MCG Cap PO SCH (08:32)
[2021-02-10] MEDS: busPIRone 5 MG Tab PO SCH (08:32)
[2021-02-10] MEDS: Allopurinol 100 MG Tab PO SCH (08:33)
[2021-02-10] MEDS: Aspirin 81 MG Tab.EC PO SCH (08:33)
[2021-02-10] MEDS: Cholecalciferol (Vitamin D3) 25 MCG Tab PO SCH (08:34)
[2021-02-10] MEDS: Oxybutynin 5 MG Tab PO SCH (08:34)
[2021-02-10] MEDS: Apixaban 5 MG Tab PO SCH (08:34)
[2021-02-10] MEDS: guaiFENesin 600 MG Tab.ER PO SCH (08:35)
[2021-02-10] MEDS: atorvaSTATin 20 MG Tab PO SCH (08:35)
[2021-02-10] MEDS: Pregabalin 75 MG Cap PO SCH (08:35)
[2021-02-10] MEDS: Potassium Chloride 20 MEQ Tab.ER PO SCH (08:35)
[2021-02-10] MEDS: Isosorbide Mononitrate 30 MG Tab.ER PO SCH (08:36)
[2021-02-10 08:46] VITALS: BP 115/81
[2021-02-10] MEDS: oxyCODONE 5 MG Tab PO PRN (11:56)
== END 2021-02-10 15:20 | disposition home or self-care (01) | DRG 291 ==
LOC: JD.ED 13:20 → JD.MS 17:11
PROVIDERS: ADMIT Internal Medicine; ATTEND Internal Medicine
DX: I11.0 Hypertensive heart disease with heart failure (principal); J96.02 Acute respiratory failure with hypercapnia; J96.01 Acute respiratory failure with hypoxia; I50.33 Acute on chronic diastolic (congestive) heart failure; J44.1 Chronic obstructive pulmonary disease with (acute) exacerbation; B97.4 Respiratory syncytial virus as the cause of diseases classified elsewhere; I48.91 Unspecified atrial fibrillation; I25.10 Atherosclerotic heart disease of native coronary artery without angina pectoris; M54.89 Other dorsalgia; D69.6 Thrombocytopenia, unspecified; R91.1 Solitary pulmonary nodule; Z20.822 Contact with and (suspected) exposure to COVID-19; E78.5 Hyperlipidemia, unspecified; E03.9 Hypothyroidism, unspecified; H91.93 Unspecified hearing loss, bilateral; K21.9 Gastro-esophageal reflux disease without esophagitis; N40.0 Benign prostatic hyperplasia without lower urinary tract symptoms; Z90.5 Acquired absence of kidney; I25.2 Old myocardial infarction; Z87.442 Personal history of urinary calculi; Z97.3 Presence of spectacles and contact lenses; Z98.890 Other specified postprocedural states; Z79.01 Long term (current) use of anticoagulants; Z87.01 Personal history of pneumonia (recurrent); Z90.89 Acquired absence of other organs; Z85.528 Personal history of other malignant neoplasm of kidney; Z85.850 Personal history of malignant neoplasm of thyroid; Z90.49 Acquired absence of other specified parts of digestive tract; Z98.52 Vasectomy status
CPT/HCPCS: 0240U; 36415; 71045; 71045-26; 71275; 71275-26; 80048; 80053; 81001; 83605; 83735; 83880; 84100; 84145; 84484; 85025; 85379; 86140; 87040; 87205; 87634-QW; 93005; 93306; 94640; 94761; 94762; 96365; 97110-GP; 97116-GP; 97162-GP; 97530-GP; 99223; 99232; 99233; 99238; 99285-25; A9270-GY; J0456; J0696; J1940; J7030; J7050; J7620-GY; Q9967; U0002

== ENCOUNTER 2021-07-19 12:46 | Emergency (ER) | payer MEDICARE, BC ==
[2021-07-19 14:05] VITALS: BP 158/84; PULSE 76
== END 2021-07-19 18:58 | disposition left against medical advice (07) ==
LOC: JD.ED 12:46
DX: M79.10 Myalgia, unspecified site (principal); Z53.21 Procedure and treatment not carried out due to patient leaving prior to being seen by health care provider

== ENCOUNTER 2022-11-21 10:33 | Emergency (ER) | payer MEDICARE, BC ==
[2022-11-21 13:11] VITALS: BP 144/74; PULSE 89
== END 2022-11-21 13:03 | disposition home or self-care (01) ==
LOC: JD.ED 10:33
DX: M23.92 Unspecified internal derangement of left knee (principal); I48.91 Unspecified atrial fibrillation; I25.10 Atherosclerotic heart disease of native coronary artery without angina pectoris; I11.0 Hypertensive heart disease with heart failure; I50.9 Heart failure, unspecified; E78.00 Pure hypercholesterolemia, unspecified; I25.2 Old myocardial infarction; J44.9 Chronic obstructive pulmonary disease, unspecified; K21.9 Gastro-esophageal reflux disease without esophagitis; E03.9 Hypothyroidism, unspecified; E66.9 Obesity, unspecified; F17.210 Nicotine dependence, cigarettes, uncomplicated; Z68.35 Body mass index [BMI] 35.0-35.9, adult; Z91.048 Other nonmedicinal substance allergy status; Z91.040 Latex allergy status; Z79.899 Other long term (current) drug therapy; Z79.01 Long term (current) use of anticoagulants
CPT/HCPCS: 73562-26-LT; 73562-LT; 99283

== ENCOUNTER 2022-12-21 12:20 | Emergency (ER) | payer MEDICARE, BC ==
[2022-12-21 13:43] LABS: BASOPHILS ABSOLUTE AUTO 0.1 K/mm3 (0.0-0.2); BASOPHILS PERCENT AUTO 0.5 % (0.0-1.0); EOSINOPHILS ABSOLUTE AUTO 0.1 K/mm3 (0.0-0.4); EOSINOPHILS PERCENT AUTO 0.8 % (0.0-6.0); HEMATOCRIT 36.3 % (42.0-52.0); HEMOGLOBIN 12.3 gm/dl (14.0-18.0); IMMATURE GRAN ABSOLUTE AUTO 0.05 K/mm3 (0.00-0.05); IMMATURE GRAN PERCENT AUTO 0.5 % (0.0-0.4); LYMPHOCYTES ABSOLUTE AUTO 1.3 K/mm3 (1.0-4.8); LYMPHOCYTES PERCENT AUTO 12.5 % (24.0-44.0); MEAN CORPUSCULAR HEMOGLOBIN 29.9 pg (28.0-32.0); MEAN CORPUSCULAR HGB CONC 33.9 g/dl (32.0-36.0); MEAN CORPUSCULAR VOLUME 88.3 fl (83.0-99.0); MEAN PLATELET VOLUME 11.9 fl (9.4-12.4); MONOCYTES ABSOLUTE AUTO 1.2 K/mm3 (0.0-0.8); MONOCYTES PERCENT AUTO 11.4 % (0.0-8.0); NEUTROPHILS ABSOLUTE AUTO 7.6 K/mm3 (1.8-7.7); NEUTROPHILS PERCENT AUTO 74.3 % (41.0-71.0); PLATELET COUNT,PLT 118 K/mm3 (150-400); RED BLOOD CELL COUNT 4.11 M/mm3 (4.52-5.90)
[2022-12-21 13:55] LABS: INR 1.12; PROTHROMBIN TIME 11.9 SECONDS (9.7-12.0)
[2022-12-21 13:57] LABS: PTT,PARTIAL THROMBOPLSTIN TIME 33.6 SECONDS (21.7-31.4)
[2022-12-21 14:00] LABS: A/G RATIO 0.7 (1-2); ALBUMIN 2.4 g/dl (3.4-5.0); ANION GAP 14.1 (5-15); BILIRUBIN TOTAL 0.7 mg/dL (0.2-1.0); BUN/CREATININE RATIO 12.7 (14-18); CALCIUM 9.4 mg/dL (8.5-10.1); CREATININE 1.5 mg/dL (0.7-1.3); EST CRCL DRUG DOSING (CG) 31.02 mL/min; POTASSIUM,K 4.1 mEq/L (3.5-5.1)
[2022-12-21 14:39] LABS: SLIDE REVIEW ABNORMAL SMEAR
[2022-12-21] MEDS ORDERED: Acetaminophen/oxyCODONE 325-5 MG Tab PO ONE (15:25)
[2022-12-21 16:29] VITALS: BP 115/69; PULSE 66
== END 2022-12-21 16:20 | disposition home or self-care (01) ==
LOC: JD.ED 12:20
DX: S09.90XA Unspecified injury of head, initial encounter (principal); S69.92XA Unspecified injury of left wrist, hand and finger(s), initial encounter; S29.9XXA Unspecified injury of thorax, initial encounter; I25.2 Old myocardial infarction; I48.91 Unspecified atrial fibrillation; J44.9 Chronic obstructive pulmonary disease, unspecified; K21.9 Gastro-esophageal reflux disease without esophagitis; F17.210 Nicotine dependence, cigarettes, uncomplicated; Z91.040 Latex allergy status; Z91.09 Other allergy status, other than to drugs and biological substances; Z79.899 Other long term (current) drug therapy; W19.XXXA Unspecified fall, initial encounter
CPT/HCPCS: 36415; 70450; 71045; 73030; 73080; 73110; 73130; 80053; 84484; 85025; 85610; 85730; 93005; 99284; A9270; 93010; 99283

== ENCOUNTER 2023-08-06 13:18 | Day surgery (SDC) | payer MEDICARE, BC ==
[2023-08-06] MEDS: Polymyxin B/Trimethoprim 10 ML Bottle EYELF SCH (14:02)
[2023-08-06] MEDS: Brimonidine 0.2% Ophth Soln 5 ML Bottle EYELF SCH (14:10)
[2023-08-06] MEDS: Phenylephrine 2.5% Ophth Soln 2 ML Bot EYELF SCH (14:16)
[2023-08-06] MEDS: Tropicamide 1% Ophth Soln 3 ML Bottle EYELF SCH (14:20)
[2023-08-06] MEDS: Tetracaine HCl/PF 0.5% 4 ML Bottle EYEBOTH SCH (15:13)
[2023-08-06] MEDS: Lidocaine 1% PF 2 ML SDV INJECT SCH (15:31)
[2023-08-06] MEDS: Pilocarpine 4% Ophth Soln 15 ML Bot EYELF SCH (15:46)
[2023-08-06] MEDS: Cefuroxime 10 MG/ML SYRINGE EYELF SCH (15:46)
[2023-08-06 16:08] VITALS: BP 98/62; PULSE 43
== END 2023-08-06 15:56 | disposition home or self-care (01) ==
LOC: JD.SDS 13:18
PROVIDERS: ATTEND Ophthalmology
DX: H25.813 Combined forms of age-related cataract, bilateral (principal); H21.81 Floppy iris syndrome; H21.42 Pupillary membranes, left eye; I11.0 Hypertensive heart disease with heart failure; I50.9 Heart failure, unspecified; J44.9 Chronic obstructive pulmonary disease, unspecified; E78.2 Mixed hyperlipidemia; E89.0 Postprocedural hypothyroidism; I25.10 Atherosclerotic heart disease of native coronary artery without angina pectoris; Z79.890 Hormone replacement therapy; Z79.899 Other long term (current) drug therapy; Z91.040 Latex allergy status; Z91.048 Other nonmedicinal substance allergy status
CPT/HCPCS: 66982; A9270; J0697; J3490

== ENCOUNTER 2023-09-03 11:00 | Day surgery (SDC) | payer MEDICARE, BC ==
[2023-09-03] MEDS: Polymyxin B/Trimethoprim 10 ML Bottle EYERT SCH (11:56)
[2023-09-03] MEDS: Brimonidine 0.2% Ophth Soln 5 ML Bottle EYERT SCH (11:59)
[2023-09-03] MEDS: Phenylephrine 2.5% Ophth Soln 2 ML Bot EYERT SCH (12:02)
[2023-09-03] MEDS: Tropicamide 1% Ophth Soln 3 ML Bottle EYERT SCH (12:06)
[2023-09-03] MEDS: Tetracaine HCl/PF 0.5% 4 ML Bottle EYEBOTH SCH (13:27)
[2023-09-03] MEDS: Lidocaine 1% PF 2 ML SDV INJECT SCH (13:46)
[2023-09-03] MEDS: Pilocarpine 4% Ophth Soln 15 ML Bot EYERT SCH (14:01)
[2023-09-03] MEDS: Cefuroxime 10 MG/ML SYRINGE EYERT SCH (14:01)
[2023-09-03 14:16] VITALS: BP 127/71; PULSE 82
== END 2023-09-03 14:13 | disposition home or self-care (01) ==
LOC: JD.SDS 11:00
PROVIDERS: ATTEND Ophthalmology
DX: H25.811 Combined forms of age-related cataract, right eye (principal); H21.41 Pupillary membranes, right eye; H21.81 Floppy iris syndrome; H40.031 Anatomical narrow angle, right eye; H11.153 Pinguecula, bilateral; I11.0 Hypertensive heart disease with heart failure; I50.9 Heart failure, unspecified; E78.2 Mixed hyperlipidemia; J44.9 Chronic obstructive pulmonary disease, unspecified; I25.10 Atherosclerotic heart disease of native coronary artery without angina pectoris; K21.9 Gastro-esophageal reflux disease without esophagitis; E03.9 Hypothyroidism, unspecified; Z79.890 Hormone replacement therapy; Z79.899 Other long term (current) drug therapy
CPT/HCPCS: 66982; A9270; J0697; J3490

== ENCOUNTER 2023-10-27 21:54 | Inpatient (IN) | payer MEDICARE, BC ==
[2023-10-27 22:52] LABS: HEMATOCRIT 35.4 % (42.0-52.0); HEMOGLOBIN 11.7 gm/dl (14.0-18.0); MEAN CORPUSCULAR HEMOGLOBIN 30.2 pg (28.0-32.0); MEAN CORPUSCULAR HGB CONC 33.1 g/dl (32.0-36.0); MEAN CORPUSCULAR VOLUME 91.5 fl (83.0-99.0); MEAN PLATELET VOLUME 11.4 fl (9.4-12.4); PLATELET COUNT,PLT 120 K/mm3 (150-400); RED BLOOD CELL COUNT 3.87 M/mm3 (4.52-5.90); WHITE BLOOD CELL COUNT,WBC 11.43 K/mm3 (3.9-11.3)
[2023-10-27 23:02] LABS: INR 1.12; PROTHROMBIN TIME 11.8 SECONDS (9.7-12.0)
[2023-10-27 23:03] LABS: PTT,PARTIAL THROMBOPLSTIN TIME 32.1 SECONDS (21.7-31.4)
[2023-10-27 23:06] LABS: LACTIC ACID 1.6 mmol/L (0.4-2.0)
[2023-10-27 23:12] LABS: A/G RATIO 0.8 (1-2); ALBUMIN 2.8 g/dl (3.4-5.0); BILIRUBIN TOTAL 0.7 mg/dL (0.2-1.0); BUN/CREATININE RATIO 10.8 (14-18); CALCIUM 9.2 mg/dL (8.5-10.1); CREATININE 1.2 mg/dL (0.7-1.3); EST CRCL DRUG DOSING (CG) 59.28 mL/min; MAGNESIUM 1.5 mg/dL (1.8-2.4); PROTEIN TOTAL,TP 6.2 g/dl (6.4-8.2)
[2023-10-27 23:56] LABS: BAND PERCENT MAN 1 % (0-10); BASOPHILS PERCENT MAN 1 (0.2-1.2); EOSINOPHILS PERCENT MAN 0 % (0.8-7.0); LYMPHOCYTES % ATYPICAL MANUAL 0 %; LYMPHOCYTES PERCENT MAN 9 % (20-40); MONOCYTES PERCENT MAN 3 % (2-10)
[2023-10-27 23:58] LABS: ANISOCYTOSIS 1+ SLIGHT; PLATELET COUNT ESTIMATE ADEQUATE
[2023-10-28 00:03] LABS: CORONAVIRUS COVID-19 NAA NEGATIVE (NEGATIVE); INFLUENZA A NAA NEGATIVE (NEGATIVE); RESPIRATORY SYNCYTIAL VIR NAA NEGATIVE (NEGATIVE)
[2023-10-28 00:15] LABS: APPEARANCE,URINE CLEAR (Clear); BILIRUBIN,URINE NEGATIVE (Negative); COLOR,URINE YELLOW (Yellow); GLUCOSE,URINE NEGATIVE (Negative); KETONES,URINE NEGATIVE (Negative); LEUKOCYTE ESTERASE,URINE NEGATIVE (Negative); NITRITE,URINE NEGATIVE (Negative); OCCULT BLOOD,URINE NEGATIVE (Negative); PROTEIN,URINE NEGATIVE (Negative)
[2023-10-28] MEDS: cefTRIAXone 1 GM in Sodium Chloride 0.9% 100 ML IV ONE (00:23)
[2023-10-28] MEDS: Doxycycline Monohydrate 100 MG Cap PO ONE (00:23)
[2023-10-28] MEDS: Sodium Chloride 0.9% 10 ML Syringe FLUSH PRN (00:24)
[2023-10-28] MEDS: Albuterol/Ipratropium 3.0-0.5 MG/3 ML Neb Soln NEB ONE (04:25)
[2023-10-28] MEDS ORDERED: Magnesium Sulfate (4.06 MEQ/ML) 5 GM/10 ML SDV IV ONE (04:44)
[2023-10-28] MEDS: Furosemide 40 MG/4 ML VIAL IVPUSH ONE (04:51)
[2023-10-28] MEDS: Magnesium Sulfate/Water 2 GM in Premix Bag 1 BAG IV ONE (05:02)
[2023-10-28] MEDS ORDERED: Ondansetron 4 MG/2 ML SDV IV PRN (08:56)
[2023-10-28] MEDS ORDERED: Albuterol 0.083% 2.5 MG/3 ML Neb Soln NEB PRN (08:56)
[2023-10-28] MEDS ORDERED: Morphine 2 MG/ML SYRINGE IVPUSH PRN (08:56)
[2023-10-28] MEDS: Albuterol/Ipratropium 3.0-0.5 MG/3 ML Neb Soln NEB SCH (09:22)
[2023-10-28] MEDS: Doxycycline 100 MG in Sodium Chloride 0.9% 100 ML IV SCH (11:34)
[2023-10-28] MEDS: Non-Formulary Medication 1 Each (Cholecalciferol (Vitamin D3) [Vitamin D3] 2,000 UNIT Cap) PO SCH (11:52)
[2023-10-28] MEDS: Doxazosin 2 MG Tab PO SCH (12:03)
[2023-10-28] MEDS: Apixaban 5 MG Tab PO SCH (12:04)
[2023-10-28] MEDS: Oxybutynin 5 MG Tab PO SCH (12:04)
[2023-10-28] MEDS: atorvaSTATin 20 MG Tab PO SCH (12:04)
[2023-10-28] MEDS: Levothyroxine 100 MCG Tab PO SCH (12:04)
[2023-10-28] MEDS: Carvedilol 3.125 MG Tab PO SCH (12:04)
[2023-10-28] MEDS: Levothyroxine 25 MCG Tab PO SCH ×2 (12:04→13:40)
[2023-10-28] MEDS: Citalopram 20 MG Tab PO SCH (12:04)
[2023-10-28] MEDS: Potassium Chloride 20 MEQ Tab.ER PO SCH (12:04)
[2023-10-28] MEDS: Isosorbide Mononitrate 60 MG Tab.ER PO SCH (12:04)
[2023-10-28] MEDS: Allopurinol 100 MG Tab PO SCH (12:04)
[2023-10-28] MEDS: Acetaminophen 325 MG Tab PO PRN (12:11)
[2023-10-28] MEDS: oxyCODONE 5 MG Tab PO PRN (12:11)
[2023-10-28] MEDS: Tiotropium Bromide 4 GM Inhalation Spray (2.5mcg/1 dose; 10 doses) INH SCH (12:23)
[2023-10-28] MEDS: Formoterol/Mometasone 200-5 MCG 8.8 GM Inhaler INH SCH (12:23)
[2023-10-28] MEDS ORDERED: PREGABALIN 150 MG PO PRN (12:57)
[2023-10-28] MEDS: Levothyroxine 112 MCG Tab PO SCH (13:41)
[2023-10-28] MEDS ORDERED: Non-Formulary Medication 1 Each (Pregabalin 150 MG Capsule) PO SCH (15:00)
[2023-10-28] MEDS: guaiFENesin/Dextromethorphan 100-10 MG/5 ML Soln 5 ML Cup PO SCH (15:48)
[2023-10-28] MEDS: Pregabalin 75 MG Cap PO SCH (15:48)
[2023-10-28] MEDS: Pantoprazole 40 MG Tab.CR PO SCH (15:48)
[2023-10-28] MEDS: busPIRone 5 MG Tab PO SCH (15:48)
[2023-10-28] MEDS ORDERED: Non-Formulary Medication 1 Each (Omeprazole 20 MG Capsule.Dr) PO SCH (16:00)
[2023-10-28] MEDS: Carboxymethylcellulose Sodium 1% Ophth Gel 15 ML Bottle EYEBOTH PRN (17:22)
[2023-10-28] MEDS: Tamsulosin 0.4 MG Cap.ER PO SCH (17:22)
[2023-10-28] MEDS ORDERED: Non-Formulary Medication 1 Each (Tamsulosin Hcl 0.4 MG Capsule) PO SCH (19:00)
[2023-10-28] MEDS: amLODIPine 10 MG Tab PO SCH (20:39)
[2023-10-28] MEDS ORDERED: amLODIPine 10 MG Tab PO SCH (21:00)
[2023-10-28] MEDS ORDERED: Apixaban 5 MG Tab PO SCH (21:00)
[2023-10-28] MEDS ORDERED: Non-Formulary Medication 1 Each (Fluticasone Propion/Salmeterol [Fluticasone-Salmeterol 25 IH SCH (21:00)
[2023-10-28] MEDS ORDERED: Oxybutynin 5 MG Tab PO SCH (21:00)
[2023-10-29] MEDS: cefTRIAXone 2 GM in Sodium Chloride 0.9% 100 ML IV SCH (00:30)
[2023-10-29 04:56] LABS: BASOPHILS PERCENT AUTO 0.4 % (0.0-1.0); EOSINOPHILS ABSOLUTE AUTO 0.3 K/mm3 (0.0-0.4); EOSINOPHILS PERCENT AUTO 2.6 % (0.0-6.0); HEMATOCRIT 34.9 % (42.0-52.0); HEMOGLOBIN 11.7 gm/dl (14.0-18.0); IMMATURE GRAN ABSOLUTE AUTO 0.03 K/mm3 (0.00-0.05); IMMATURE GRAN PERCENT AUTO 0.3 % (0.0-0.4); LYMPHOCYTES ABSOLUTE AUTO 1.4 K/mm3 (1.0-4.8); LYMPHOCYTES PERCENT AUTO 14.5 % (24.0-44.0); MEAN CORPUSCULAR HEMOGLOBIN 30.5 pg (28.0-32.0); MEAN CORPUSCULAR HGB CONC 33.5 g/dl (32.0-36.0); MEAN CORPUSCULAR VOLUME 91.1 fl (83.0-99.0); MEAN PLATELET VOLUME 12.3 fl (9.4-12.4); MONOCYTES ABSOLUTE AUTO 0.9 K/mm3 (0.0-0.8); MONOCYTES PERCENT AUTO 9.2 % (0.0-8.0); NEUTROPHILS ABSOLUTE AUTO 6.9 K/mm3 (1.8-7.7); PLATELET COUNT,PLT 112 K/mm3 (150-400); RED BLOOD CELL COUNT 3.83 M/mm3 (4.52-5.90); WHITE BLOOD CELL COUNT,WBC 9.49 K/mm3 (3.9-11.3)
[2023-10-29 05:19] LABS: A/G RATIO 0.7 (1-2); ALBUMIN 2.4 g/dl (3.4-5.0); ANION GAP 12.8 (5-15); BILIRUBIN TOTAL 0.6 mg/dL (0.2-1.0); CALCIUM 9.3 mg/dL (8.5-10.1); EST CRCL DRUG DOSING (CG) 79.57 mL/min; MAGNESIUM 1.7 mg/dL (1.8-2.4); POTASSIUM,K 3.8 mEq/L (3.5-5.1); PROTEIN TOTAL,TP 5.8 g/dl (6.4-8.2)
[2023-10-29] MEDS: Levothyroxine 100 MCG Tab PO SCH (06:46)
[2023-10-29] MEDS: Bumetanide 1 MG Tab PO SCH (08:27)
[2023-10-29] MEDS: Magnesium Sulfate/Water 2 GM in Premix Bag 1 BAG IV ONE (08:35)
[2023-10-29] MEDS ORDERED: Allopurinol 100 MG Tab PO SCH (09:00)
[2023-10-29] MEDS ORDERED: Non-Formulary Medication 1 Each (Potassium Chloride [Potassium Chloride] 20 MEQ Tablet.Er) PO SCH (09:00)
[2023-10-29] MEDS ORDERED: Non-Formulary Medication 1 Each (Umeclidinium Bromide 62.5 MCG Blst.W.Dev) IH SCH (09:00)
[2023-10-29] MEDS ORDERED: Non-Formulary Medication 1 Each (Escitalopram 20 MG Tablet) PO SCH (09:00)
[2023-10-29] MEDS ORDERED: atorvaSTATin 20 MG Tab PO SCH (09:00)
[2023-10-29] MEDS ORDERED: Isosorbide Mononitrate 60 MG Tab.ER PO SCH (09:00)
[2023-10-29] MEDS ORDERED: Doxazosin 2 MG Tab PO SCH (09:00)
[2023-10-29] MEDS ORDERED: NEBIVOLOL HCL 2.5 MG PO SCH (09:00)
[2023-10-29] MEDS: Polymyxin B/Trimethoprim 10 ML Bottle EYEBOTH SCH (11:33)
[2023-10-29] MEDS: oxyCODONE 5 MG Tab PO PRN (20:17)
[2023-10-29] MEDS: Melatonin 3 MG Tab PO SCH (20:17)
[2023-10-30 04:56] LABS: BASOPHILS PERCENT AUTO 0.4 % (0.0-1.0); EOSINOPHILS ABSOLUTE AUTO 0.4 K/mm3 (0.0-0.4); EOSINOPHILS PERCENT AUTO 3.9 % (0.0-6.0); HEMATOCRIT 34.1 % (42.0-52.0); HEMOGLOBIN 11.3 gm/dl (14.0-18.0); IMMATURE GRAN ABSOLUTE AUTO 0.03 K/mm3 (0.00-0.05); IMMATURE GRAN PERCENT AUTO 0.3 % (0.0-0.4); LYMPHOCYTES ABSOLUTE AUTO 1.4 K/mm3 (1.0-4.8); LYMPHOCYTES PERCENT AUTO 15.1 % (24.0-44.0); MEAN CORPUSCULAR HEMOGLOBIN 30.5 pg (28.0-32.0); MEAN CORPUSCULAR HGB CONC 33.1 g/dl (32.0-36.0); MEAN CORPUSCULAR VOLUME 91.9 fl (83.0-99.0); MEAN PLATELET VOLUME 12.1 fl (9.4-12.4); MONOCYTES ABSOLUTE AUTO 0.9 K/mm3 (0.0-0.8); MONOCYTES PERCENT AUTO 9.6 % (0.0-8.0); NEUTROPHILS ABSOLUTE AUTO 6.7 K/mm3 (1.8-7.7); NEUTROPHILS PERCENT AUTO 70.7 % (41.0-71.0); PLATELET COUNT,PLT 117 K/mm3 (150-400); RED BLOOD CELL COUNT 3.71 M/mm3 (4.52-5.90); WHITE BLOOD CELL COUNT,WBC 9.42 K/mm3 (3.9-11.3)
[2023-10-30] MEDS: Levothyroxine 112 MCG Tab PO SCH (06:08)
[2023-10-30 11:11] LABS: A/G RATIO 0.6 (1-2); ALBUMIN 2.2 g/dl (3.4-5.0); BILIRUBIN TOTAL 0.4 mg/dL (0.2-1.0); BUN/CREATININE RATIO 15.5 (14-18); CALCIUM 9.2 mg/dL (8.5-10.1); CREATININE 1.1 mg/dL (0.7-1.3); EST CRCL DRUG DOSING (CG) 72.33 mL/min; MAGNESIUM 1.8 mg/dL (1.8-2.4); PROTEIN TOTAL,TP 5.7 g/dl (6.4-8.2)
[2023-10-30] MEDS: Docusate Sodium 100 MG Cap PO PRN (20:55)
[2023-10-31] MEDS: Polyethylene Glycol 3350 Powder 17 GM Packet PO PRN (05:17)
[2023-10-31 05:40] LABS: BASOPHILS ABSOLUTE AUTO 0.1 K/mm3 (0.0-0.2); BASOPHILS PERCENT AUTO 0.7 % (0.0-1.0); EOSINOPHILS ABSOLUTE AUTO 0.4 K/mm3 (0.0-0.4); EOSINOPHILS PERCENT AUTO 4.5 % (0.0-6.0); HEMATOCRIT 35.7 % (42.0-52.0); HEMOGLOBIN 11.9 gm/dl (14.0-18.0); IMMATURE GRAN ABSOLUTE AUTO 0.03 K/mm3 (0.00-0.05); IMMATURE GRAN PERCENT AUTO 0.4 % (0.0-0.4); LYMPHOCYTES PERCENT AUTO 12.6 % (24.0-44.0); MEAN CORPUSCULAR HEMOGLOBIN 30.4 pg (28.0-32.0); MEAN CORPUSCULAR HGB CONC 33.3 g/dl (32.0-36.0); MEAN CORPUSCULAR VOLUME 91.3 fl (83.0-99.0); MEAN PLATELET VOLUME 11.7 fl (9.4-12.4); MONOCYTES ABSOLUTE AUTO 0.8 K/mm3 (0.0-0.8); MONOCYTES PERCENT AUTO 9.6 % (0.0-8.0); NEUTROPHILS PERCENT AUTO 72.2 % (41.0-71.0); PLATELET COUNT,PLT 142 K/mm3 (150-400); RED BLOOD CELL COUNT 3.91 M/mm3 (4.52-5.90); WHITE BLOOD CELL COUNT,WBC 8.27 K/mm3 (3.9-11.3)
[2023-10-31 06:17] LABS: A/G RATIO 0.6 (1-2); ALBUMIN 2.2 g/dl (3.4-5.0); ANION GAP 9.3 (5-15); BILIRUBIN TOTAL 0.3 mg/dL (0.2-1.0); BUN/CREATININE RATIO 13.6 (14-18); CALCIUM 9.5 mg/dL (8.5-10.1); CREATININE 1.1 mg/dL (0.7-1.3); EST CRCL DRUG DOSING (CG) 72.33 mL/min; MAGNESIUM 1.7 mg/dL (1.8-2.4); POTASSIUM,K 4.3 mEq/L (3.5-5.1); PROTEIN TOTAL,TP 5.9 g/dl (6.4-8.2)
[2023-10-31] MEDS: Magnesium Sulfate/Water 4 GM in Premix Bag 1 BAG IV ONE (12:34)
[2023-10-31] MEDS: oxyCODONE 5 MG Tab PO PRN (16:04)
[2023-10-31] MEDS: methylPREDNISolone Sodium Succinate 40 MG/1 ML SDV IVPUSH SCH (16:07)
[2023-10-31] MEDS: Doxycycline Monohydrate 100 MG Cap PO SCH (18:12)
[2023-10-31] MEDS: Sennosides/Docusate Sodium 50-8.6 MG Tab PO PRN (21:27)
[2023-11-01] MEDS: methylPREDNISolone Sodium Succinate 40 MG/1 ML SDV ONE (02:14)
[2023-11-01 06:00] LABS: ANION GAP 8.2 (5-15); BUN/CREATININE RATIO 17.5 (14-18); CREATININE 1.2 mg/dL (0.7-1.3); EST CRCL DRUG DOSING (CG) 66.31 mL/min; MAGNESIUM 2.3 mg/dL (1.8-2.4); PHOSPHORUS 3.8 mg/dL (2.6-4.7); POTASSIUM,K 4.2 mEq/L (3.5-5.1)
[2023-11-01] MEDS: predniSONE 20 MG Tab PO SCH (07:46)
[2023-11-01] MEDS: Lactulose Soln 10 GM/15 ML 30 ML UD Cup PO SCH (22:09)
[2023-11-02 06:58] LABS: ANION GAP 10.4 (5-15); BUN/CREATININE RATIO 23.1 (14-18); CALCIUM 10.3 mg/dL (8.5-10.1); CREATININE 1.3 mg/dL (0.7-1.3); EST CRCL DRUG DOSING (CG) 61.21 mL/min; MAGNESIUM 2.2 mg/dL (1.8-2.4); POTASSIUM,K 4.4 mEq/L (3.5-5.1); TSH 2.251 uIU/mL (0.358-3.74)
[2023-11-02 15:11] VITALS: BP 101/86; PULSE 81
== END 2023-11-02 14:05 | disposition home or self-care (01) | DRG 193 ==
LOC: JD.ED 21:54 → JD.MS 10-28 06:10
PROVIDERS: ADMIT Internal Medicine; ATTEND Student in an Organized Health Care Education/Training Program
DX: J18.9 Pneumonia, unspecified organism (principal); I50.33 Acute on chronic diastolic (congestive) heart failure; J96.21 Acute and chronic respiratory failure with hypoxia; J96.22 Acute and chronic respiratory failure with hypercapnia; J44.0 Chronic obstructive pulmonary disease with (acute) lower respiratory infection; J44.1 Chronic obstructive pulmonary disease with (acute) exacerbation; J96.91 Respiratory failure, unspecified with hypoxia; I48.91 Unspecified atrial fibrillation; H91.90 Unspecified hearing loss, unspecified ear; H54.7 Unspecified visual loss; I25.10 Atherosclerotic heart disease of native coronary artery without angina pectoris; E78.00 Pure hypercholesterolemia, unspecified; G47.30 Sleep apnea, unspecified; N40.0 Benign prostatic hyperplasia without lower urinary tract symptoms; R05.1 Acute cough; M54.9 Dorsalgia, unspecified; G89.29 Other chronic pain; M19.90 Unspecified osteoarthritis, unspecified site; I11.0 Hypertensive heart disease with heart failure; I50.9 Heart failure, unspecified; R50.9 Fever, unspecified; F17.210 Nicotine dependence, cigarettes, uncomplicated; R79.89 Other specified abnormal findings of blood chemistry; Z96.89 Presence of other specified functional implants; D69.6 Thrombocytopenia, unspecified; M54.50 Low back pain, unspecified; H10.33 Unspecified acute conjunctivitis, bilateral; J43.8 Other emphysema; R33.9 Retention of urine, unspecified; Z79.01 Long term (current) use of anticoagulants; E83.42 Hypomagnesemia; I25.2 Old myocardial infarction; K21.9 Gastro-esophageal reflux disease without esophagitis; Z79.51 Long term (current) use of inhaled steroids; Z79.52 Long term (current) use of systemic steroids; E66.9 Obesity, unspecified; Z95.5 Presence of coronary angioplasty implant and graft; Z87.01 Personal history of pneumonia (recurrent); Z87.442 Personal history of urinary calculi; Z68.30 Body mass index [BMI] 30.0-30.9, adult; Z85.850 Personal history of malignant neoplasm of thyroid; Z98.890 Other specified postprocedural states; Z90.89 Acquired absence of other organs; Z98.42 Cataract extraction status, left eye; E03.9 Hypothyroidism, unspecified; Z96.82 Presence of neurostimulator; Z91.040 Latex allergy status; Z91.048 Other nonmedicinal substance allergy status; Z79.82 Long term (current) use of aspirin; Z79.890 Hormone replacement therapy; Z79.899 Other long term (current) drug therapy; Z90.49 Acquired absence of other specified parts of digestive tract; Z68.34 Body mass index [BMI] 34.0-34.9, adult
CPT/HCPCS: 0241U; 36415; 71045; 71046; 80048; 80053; 81003; 83605; 83735; 83880; 84100; 84443; 84484; 85007; 85025; 85027; 85610; 85730; 86738; 87040; 87899; 92610; 93005; 93306; 94640; 94660; 94668; 94761; 96365; 96367; 96375; 97110; 97161; 99285; 93010; A9270-GY; J0696; J1940; J2919; J3475; J3490; J7512; J7620-GY

== ENCOUNTER 2023-11-22 12:59 | Emergency (ER) | payer MEDICARE, BC ==
[2023-11-22 19:54] VITALS: BP 146/80; PULSE 67
== END 2023-11-22 16:26 | disposition home or self-care (01) ==
LOC: JD.ED 12:59
DX: M25.552 Pain in left hip (principal); I48.91 Unspecified atrial fibrillation; I25.10 Atherosclerotic heart disease of native coronary artery without angina pectoris; E78.00 Pure hypercholesterolemia, unspecified; I11.0 Hypertensive heart disease with heart failure; I50.9 Heart failure, unspecified; I25.2 Old myocardial infarction; J44.9 Chronic obstructive pulmonary disease, unspecified; K21.9 Gastro-esophageal reflux disease without esophagitis; Z95.5 Presence of coronary angioplasty implant and graft; E03.9 Hypothyroidism, unspecified; E66.9 Obesity, unspecified; Z68.31 Body mass index [BMI] 31.0-31.9, adult; Z90.49 Acquired absence of other specified parts of digestive tract; Z79.899 Other long term (current) drug therapy; Z91.048 Other nonmedicinal substance allergy status; Z91.040 Latex allergy status; Z79.01 Long term (current) use of anticoagulants
CPT/HCPCS: 73502-26-LT; 73502-LT; 73552-26-LT; 73552-LT; 99283

== ENCOUNTER 2024-05-05 21:05 | Emergency (ER) | payer MEDICARE, BC ==
[2024-05-05 23:22] LABS: A/G RATIO 0.9 (1-2); ALBUMIN 3.1 g/dl (3.4-5.0); ANION GAP 10.4 (5-15); BILIRUBIN TOTAL 0.5 mg/dL (0.2-1.0); BUN/CREATININE RATIO 11.8 (14-18); CALCIUM 9.9 mg/dL (8.5-10.1); CREATININE 1.1 mg/dL (0.7-1.3); EST CRCL DRUG DOSING (CG) 72.33 mL/min; POTASSIUM,K 4.4 mEq/L (3.5-5.1); PROTEIN TOTAL,TP 6.7 g/dl (6.4-8.2)
[2024-05-05 23:28] LABS: BASOPHILS PERCENT AUTO 0.7 % (0.0-1.0); EOSINOPHILS ABSOLUTE AUTO 0.3 K/mm3 (0.0-0.4); EOSINOPHILS PERCENT AUTO 4.9 % (0.0-6.0); HEMATOCRIT 39.3 % (42.0-52.0); HEMOGLOBIN 12.8 gm/dl (14.0-18.0); IMMATURE GRAN ABSOLUTE AUTO 0.02 K/mm3 (0.00-0.05); IMMATURE GRAN PERCENT AUTO 0.4 % (0.0-0.4); LYMPHOCYTES ABSOLUTE AUTO 1.7 K/mm3 (1.0-4.8); LYMPHOCYTES PERCENT AUTO 32.1 % (24.0-44.0); MEAN CORPUSCULAR HEMOGLOBIN 30.3 pg (28.0-32.0); MEAN CORPUSCULAR HGB CONC 32.6 g/dl (32.0-36.0); MEAN CORPUSCULAR VOLUME 93.1 fl (83.0-99.0); MEAN PLATELET VOLUME 12.5 fl (9.4-12.4); MONOCYTES ABSOLUTE AUTO 0.4 K/mm3 (0.0-0.8); MONOCYTES PERCENT AUTO 8.2 % (0.0-8.0); NEUTROPHILS ABSOLUTE AUTO 2.9 K/mm3 (1.8-7.7); NEUTROPHILS PERCENT AUTO 53.7 % (41.0-71.0); PLATELET COUNT,PLT 106 K/mm3 (150-400); RED BLOOD CELL COUNT 4.22 M/mm3 (4.52-5.90); WHITE BLOOD CELL COUNT,WBC 5.36 K/mm3 (3.9-11.3)
[2024-05-06] MEDS: hydrALAZINE 20 MG/ML SDV IVPUSH ONE (01:23)
[2024-05-06] MEDS: Sodium Chloride 0.9% 10 ML Syringe FLUSH PRN (01:24)
[2024-05-06 02:25] VITALS: BP 167/67; PULSE 65
== END 2024-05-06 02:20 | disposition home or self-care (01) ==
LOC: JD.ED 21:05
DX: I11.0 Hypertensive heart disease with heart failure (principal); I50.9 Heart failure, unspecified; I48.91 Unspecified atrial fibrillation; I25.2 Old myocardial infarction; E78.00 Pure hypercholesterolemia, unspecified; F17.210 Nicotine dependence, cigarettes, uncomplicated; J44.9 Chronic obstructive pulmonary disease, unspecified; Z91.048 Other nonmedicinal substance allergy status; Z91.040 Latex allergy status; Z79.01 Long term (current) use of anticoagulants; Z79.899 Other long term (current) drug therapy; Z79.890 Hormone replacement therapy; Z95.5 Presence of coronary angioplasty implant and graft
CPT/HCPCS: 36415; 80053; 85025; 96374; 99283; 99283-25; J0360

== ENCOUNTER 2024-05-24 21:17 | Inpatient (IN) | payer MEDICARE, BC ==
[2024-05-24] MEDS ORDERED: Sodium Chloride 0.9% 10 ML Syringe FLUSH PRN (21:32)
[2024-05-24 21:59] LABS: BASOPHILS ABSOLUTE AUTO 0.1 K/mm3 (0.0-0.2); EOSINOPHILS PERCENT AUTO 0.8 % (0.0-6.0); HEMATOCRIT 36.8 % (42.0-52.0); HEMOGLOBIN 12.4 gm/dl (14.0-18.0); IMMATURE GRAN ABSOLUTE AUTO 0.02 K/mm3 (0.00-0.05); IMMATURE GRAN PERCENT AUTO 0.4 % (0.0-0.4); LYMPHOCYTES ABSOLUTE AUTO 0.6 K/mm3 (1.0-4.8); LYMPHOCYTES PERCENT AUTO 12.9 % (24.0-44.0); MEAN CORPUSCULAR HEMOGLOBIN 29.9 pg (28.0-32.0); MEAN CORPUSCULAR HGB CONC 33.7 g/dl (32.0-36.0); MEAN CORPUSCULAR VOLUME 88.7 fl (83.0-99.0); MEAN PLATELET VOLUME 11.4 fl (9.4-12.4); MONOCYTES ABSOLUTE AUTO 0.5 K/mm3 (0.0-0.8); MONOCYTES PERCENT AUTO 9.6 % (0.0-8.0); NEUTROPHILS ABSOLUTE AUTO 3.7 K/mm3 (1.8-7.7); NEUTROPHILS PERCENT AUTO 75.3 % (41.0-71.0); PLATELET COUNT,PLT 96 K/mm3 (150-400); RED BLOOD CELL COUNT 4.15 M/mm3 (4.52-5.90)
[2024-05-24 22:19] LABS: A/G RATIO 0.8 (1-2); ALBUMIN 2.9 g/dl (3.4-5.0); ANION GAP 13.1 (5-15); BILIRUBIN TOTAL 0.6 mg/dL (0.2-1.0); BUN/CREATININE RATIO 8.2 (14-18); CALCIUM 9.7 mg/dL (8.5-10.1); CREATININE 1.1 mg/dL (0.7-1.3); EST CRCL DRUG DOSING (CG) 67.46 mL/min; MAGNESIUM 1.3 mg/dL (1.8-2.4); POTASSIUM,K 4.1 mEq/L (3.5-5.1); PROTEIN TOTAL,TP 6.7 g/dl (6.4-8.2)
[2024-05-24] MEDS: Magnesium Sulf/Wat 2 GM/50 mL 2 GM in Premix Bag 1 BAG IV ONE (22:45)
[2024-05-24 22:53] LABS: SLIDE REVIEW ABNORMAL SMEAR
[2024-05-24] MEDS: Bumetanide 1 MG/4 ML MDV IVPUSH ONE (23:13)
[2024-05-24] MEDS ORDERED: Docusate Sodium 100 MG Cap PO PRN (23:27)
[2024-05-24] MEDS ORDERED: Acetaminophen 325 MG Tab PO PRN (23:27)
[2024-05-24] MEDS ORDERED: Ondansetron 4 MG/2 ML SDV IV PRN (23:27)
[2024-05-24] MEDS ORDERED: Albuterol/Ipratropium 3.0-0.5 MG/3 ML Neb Soln NEB PRN (23:27)
[2024-05-24 23:50] LABS: APPEARANCE,URINE CLEAR (Clear); BILIRUBIN,URINE NEGATIVE (Negative); COLOR,URINE YELLOW (Yellow); GLUCOSE,URINE NEGATIVE (Negative); KETONES,URINE NEGATIVE (Negative); LEUKOCYTE ESTERASE,URINE NEGATIVE (Negative); NITRITE,URINE NEGATIVE (Negative); OCCULT BLOOD,URINE NEGATIVE (Negative); PROTEIN,URINE 1+ (Negative)
[2024-05-25 00:13] LABS: RBC,URINE NOT SEEN /hpf (0-5); WBC,URINE 0-5 /hpf (0-5)
[2024-05-25 00:14] LABS: BACTERIA,URINE NOT SEEN /hpf (FEW); EPITHELIAL CELLS,URINE NOT SEEN /hpf (0-5); MUCUS,URINE NOT SEEN /hpf (FEW)
[2024-05-25] MEDS: Sodium Chloride 0.9% 10 ML Syringe FLUSH ONE (00:29)
[2024-05-25] MEDS: Iopamidol 755 Mg/ML 100 ML Bottle IVPUSH ONE (00:29)
[2024-05-25] MEDS: Sodium Chloride 0.9% 100 ML IV SCH (00:29)
[2024-05-25] MEDS: Azithromycin 500 MG in Sodium Chloride 0.9% 250 ML IV ONE (02:48)
[2024-05-25] MEDS: cefTRIAXone 1 GM Vial IV ONE (02:48)
[2024-05-25 06:10] LABS: BASOPHILS PERCENT AUTO 0.7 % (0.0-1.0); EOSINOPHILS PERCENT AUTO 0.2 % (0.0-6.0); HEMATOCRIT 38.4 % (42.0-52.0); HEMOGLOBIN 12.8 gm/dl (14.0-18.0); IMMATURE GRAN ABSOLUTE AUTO 0.02 K/mm3 (0.00-0.05); IMMATURE GRAN PERCENT AUTO 0.4 % (0.0-0.4); LYMPHOCYTES ABSOLUTE AUTO 0.9 K/mm3 (1.0-4.8); LYMPHOCYTES PERCENT AUTO 16.4 % (24.0-44.0); MEAN CORPUSCULAR HEMOGLOBIN 30.5 pg (28.0-32.0); MEAN CORPUSCULAR HGB CONC 33.3 g/dl (32.0-36.0); MEAN CORPUSCULAR VOLUME 91.4 fl (83.0-99.0); MEAN PLATELET VOLUME 11.9 fl (9.4-12.4); MONOCYTES ABSOLUTE AUTO 0.6 K/mm3 (0.0-0.8); MONOCYTES PERCENT AUTO 10.2 % (0.0-8.0); NEUTROPHILS PERCENT AUTO 72.1 % (41.0-71.0); PLATELET COUNT,PLT 84 K/mm3 (150-400); WHITE BLOOD CELL COUNT,WBC 5.49 K/mm3 (3.9-11.3)
[2024-05-25 06:37] LABS: A/G RATIO 0.8 (1-2); ANION GAP 9.9 (5-15); BILIRUBIN TOTAL 0.7 mg/dL (0.2-1.0); BUN/CREATININE RATIO 8.2 (14-18); CALCIUM 9.9 mg/dL (8.5-10.1); CREATININE 1.1 mg/dL (0.7-1.3); EST CRCL DRUG DOSING (CG) 71.24 mL/min; MAGNESIUM 1.9 mg/dL (1.8-2.4); POTASSIUM,K 3.9 mEq/L (3.5-5.1); PROTEIN TOTAL,TP 6.7 g/dl (6.4-8.2)
[2024-05-25 07:09] LABS: SLIDE REVIEW ABNORMAL SMEAR
[2024-05-25] MEDS: Isosorbide Mononitrate 60 MG Tab.ER PO SCH (09:27)
[2024-05-25] MEDS: Bumetanide 1 MG Tab PO SCH (09:27)
[2024-05-25] MEDS: Pregabalin 75 MG Cap PO SCH (09:28)
[2024-05-25] MEDS: atorvaSTATin 20 MG Tab PO SCH (09:28)
[2024-05-25] MEDS: Doxazosin 2 MG Tab PO SCH (09:28)
[2024-05-25] MEDS: busPIRone 5 MG Tab PO SCH (09:28)
[2024-05-25] MEDS: hydrOXYzine HCl 25 MG Tab PO PRN (09:28)
[2024-05-25] MEDS: guaiFENesin 600 MG Tab.ER PO SCH (09:28)
[2024-05-25] MEDS: Citalopram 20 MG Tab PO SCH (09:28)
[2024-05-25] MEDS: Apixaban 5 MG Tab PO SCH (09:29)
[2024-05-25] MEDS: Acetaminophen 325 MG Tab PO PRN (11:49)
[2024-05-25 12:13] LABS: BASE EXCESS ARTERIAL 7.4 (-2-2.0); BICARBONATE,ARTERIAL 31.2 meq/L (22.0-26.0); O2 SATURATION ARTERIAL 90.3 % (96.0-97.0)
[2024-05-25] MEDS: Albuterol/Ipratropium 3.0-0.5 MG/3 ML Neb Soln NEB SCH (12:16)
[2024-05-25] MEDS: cefTRIAXone 1 GM Vial IVPUSH SCH (13:48)
[2024-05-25] MEDS: Doxycycline 100 MG in Sodium Chloride 0.9% 100 ML IV SCH (13:48)
[2024-05-25] MEDS: methylPREDNISolone Sodium Succinate 40 MG/1 ML SDV IVPUSH SCH (13:48)
[2024-05-25 16:18] LABS: TSH 2.748 uIU/mL (0.358-3.74)
[2024-05-25] MEDS: Nystatin Topical Powder 15 GM Bottle TOP SCH (19:20)
[2024-05-25] MEDS: Tamsulosin 0.4 MG Cap.ER PO SCH (19:20)
[2024-05-25] MEDS: Formoterol/Mometasone 200-5 MCG 8.8 GM Inhaler IH SCH (20:51)
[2024-05-25] MEDS ORDERED: Azithromycin 500 MG in Sodium Chloride 0.9% 250 ML IV SCH (21:00)
[2024-05-26 05:52] LABS: BASOPHILS PERCENT AUTO 0.2 % (0.0-1.0); HEMATOCRIT 39.4 % (42.0-52.0); HEMOGLOBIN 13.3 gm/dl (14.0-18.0); IMMATURE GRAN ABSOLUTE AUTO 0.03 K/mm3 (0.00-0.05); IMMATURE GRAN PERCENT AUTO 0.7 % (0.0-0.4); LYMPHOCYTES ABSOLUTE AUTO 0.7 K/mm3 (1.0-4.8); LYMPHOCYTES PERCENT AUTO 14.8 % (24.0-44.0); MEAN CORPUSCULAR HEMOGLOBIN 30.2 pg (28.0-32.0); MEAN CORPUSCULAR HGB CONC 33.8 g/dl (32.0-36.0); MEAN CORPUSCULAR VOLUME 89.5 fl (83.0-99.0); MEAN PLATELET VOLUME 12.6 fl (9.4-12.4); MONOCYTES ABSOLUTE AUTO 0.5 K/mm3 (0.0-0.8); MONOCYTES PERCENT AUTO 11.9 % (0.0-8.0); NEUTROPHILS ABSOLUTE AUTO 3.3 K/mm3 (1.8-7.7); NEUTROPHILS PERCENT AUTO 72.4 % (41.0-71.0); PLATELET COUNT,PLT 87 K/mm3 (150-400); WHITE BLOOD CELL COUNT,WBC 4.52 K/mm3 (3.9-11.3)
[2024-05-26 05:54] LABS: A/G RATIO 0.7 (1-2); ALBUMIN 2.7 g/dl (3.4-5.0); ANION GAP 10.4 (5-15); BILIRUBIN TOTAL 0.6 mg/dL (0.2-1.0); BUN/CREATININE RATIO 12.9 (14-18); C-REACTIVE PROTEIN 6.75 mg/dL (<0.30); CALCIUM 10.2 mg/dL (8.5-10.1); CREATININE 1.4 mg/dL (0.7-1.3); EST CRCL DRUG DOSING (CG) 55.97 mL/min; POTASSIUM,K 3.4 mEq/L (3.5-5.1); PROTEIN TOTAL,TP 6.6 g/dl (6.4-8.2)
[2024-05-26] MEDS: Levothyroxine 100 MCG Tab PO SCH (06:27)
[2024-05-26 07:04] LABS: SLIDE REVIEW ABNORMAL SMEAR
[2024-05-26] MEDS: Potassium Chloride 20 MEQ Tab.ER PO ONE (08:12)
[2024-05-26] MEDS ORDERED: Albuterol 0.083% 2.5 MG/3 ML Neb Soln NEB PRN (08:51)
[2024-05-26] MEDS: Albuterol/Ipratropium 3.0-0.5 MG/3 ML Neb Soln NEB SCH (08:59)
[2024-05-26] MEDS: Metoprolol Succinate 25 MG Tab.ER PO SCH (10:29)
[2024-05-27 05:45] LABS: EOSINOPHILS ABSOLUTE AUTO 0.1 K/mm3 (0.0-0.4); EOSINOPHILS PERCENT AUTO 1.1 % (0.0-6.0); HEMATOCRIT 38.1 % (42.0-52.0); HEMOGLOBIN 12.9 gm/dl (14.0-18.0); IMMATURE GRAN ABSOLUTE AUTO 0.04 K/mm3 (0.00-0.05); IMMATURE GRAN PERCENT AUTO 0.9 % (0.0-0.4); LYMPHOCYTES ABSOLUTE AUTO 0.7 K/mm3 (1.0-4.8); LYMPHOCYTES PERCENT AUTO 14.3 % (24.0-44.0); MEAN CORPUSCULAR HEMOGLOBIN 30.3 pg (28.0-32.0); MEAN CORPUSCULAR HGB CONC 33.9 g/dl (32.0-36.0); MEAN CORPUSCULAR VOLUME 89.4 fl (83.0-99.0); MEAN PLATELET VOLUME 12.4 fl (9.4-12.4); MONOCYTES ABSOLUTE AUTO 0.4 K/mm3 (0.0-0.8); MONOCYTES PERCENT AUTO 9.3 % (0.0-8.0); NEUTROPHILS ABSOLUTE AUTO 3.4 K/mm3 (1.8-7.7); NEUTROPHILS PERCENT AUTO 74.4 % (41.0-71.0); PLATELET COUNT,PLT 84 K/mm3 (150-400); RED BLOOD CELL COUNT 4.26 M/mm3 (4.52-5.90); WHITE BLOOD CELL COUNT,WBC 4.53 K/mm3 (3.9-11.3)
[2024-05-27 06:02] LABS: A/G RATIO 0.6 (1-2); ALBUMIN 2.4 g/dl (3.4-5.0); ANION GAP 9.4 (5-15); BILIRUBIN TOTAL 0.5 mg/dL (0.2-1.0); BUN/CREATININE RATIO 20.8 (14-18); C-REACTIVE PROTEIN 2.78 mg/dL (<0.30); CALCIUM 9.8 mg/dL (8.5-10.1); CREATININE 1.2 mg/dL (0.7-1.3); EST CRCL DRUG DOSING (CG) 65.3 mL/min; POTASSIUM,K 3.4 mEq/L (3.5-5.1); PROTEIN TOTAL,TP 6.3 g/dl (6.4-8.2)
[2024-05-27 06:34] LABS: SLIDE REVIEW ABNORMAL SMEAR
[2024-05-27] MEDS: Levothyroxine 25 MCG Tab PO SCH (06:36)
[2024-05-27] MEDS: predniSONE 20 MG Tab PO SCH (06:37)
[2024-05-27] MEDS ORDERED: Levothyroxine 100 MCG Tab PO SCH (07:30)
[2024-05-27] MEDS: Potassium Chloride 20 MEQ Tab.ER PO ONE (08:15)
[2024-05-27] MEDS: Magnesium Sulf/Wat 2 GM/50 mL 2 GM in Premix Bag 1 BAG IV ONE (09:32)
[2024-05-28 06:04] LABS: A/G RATIO 0.7 (1-2); ALBUMIN 2.4 g/dl (3.4-5.0); ANION GAP 9.5 (5-15); BILIRUBIN TOTAL 0.4 mg/dL (0.2-1.0); BUN/CREATININE RATIO 21.5 (14-18); CALCIUM 9.4 mg/dL (8.5-10.1); CREATININE 1.3 mg/dL (0.7-1.3); EST CRCL DRUG DOSING (CG) 60.28 mL/min; POTASSIUM,K 3.5 mEq/L (3.5-5.1); PROTEIN TOTAL,TP 6.1 g/dl (6.4-8.2)
[2024-05-28] MEDS: Losartan 50 MG Tab PO SCH (21:09)
[2024-05-29 12:24] VITALS: BP 158/75; PULSE 78
== END 2024-05-29 11:52 | disposition home or self-care (01) | DRG 193 ==
LOC: JD.ED 21:17 → JD.MS 23:27
PROVIDERS: ADMIT Family Medicine; ATTEND Family Medicine
PROC: 4A033R1 Measurement of Arterial Saturation, Peripheral, Percutaneous Approach (ICD-10-PCS; principal; 2024-05-25)
PROC: 5A09457 Assistance with Respiratory Ventilation, 24-96 Consecutive Hours, Continuous Positive Airway Pressure (ICD-10-PCS; 2024-05-25)
DX: J96.00 Acute respiratory failure, unspecified whether with hypoxia or hypercapnia (principal); I11.0 Hypertensive heart disease with heart failure; J18.9 Pneumonia, unspecified organism; G93.41 Metabolic encephalopathy; J96.21 Acute and chronic respiratory failure with hypoxia; I48.91 Unspecified atrial fibrillation; I48.20 Chronic atrial fibrillation, unspecified; J44.9 Chronic obstructive pulmonary disease, unspecified; J44.0 Chronic obstructive pulmonary disease with (acute) lower respiratory infection; J44.1 Chronic obstructive pulmonary disease with (acute) exacerbation; N17.9 Acute kidney failure, unspecified; Z90.49 Acquired absence of other specified parts of digestive tract; I13.0 Hypertensive heart and chronic kidney disease with heart failure and stage 1 through stage 4 chronic kidney disease, or unspecified chronic kidney disease; Z79.890 Hormone replacement therapy; I25.10 Atherosclerotic heart disease of native coronary artery without angina pectoris; Z79.51 Long term (current) use of inhaled steroids; G89.29 Other chronic pain; Z91.040 Latex allergy status; E78.00 Pure hypercholesterolemia, unspecified; G47.33 Obstructive sleep apnea (adult) (pediatric); H26.9 Unspecified cataract; H54.7 Unspecified visual loss; H91.90 Unspecified hearing loss, unspecified ear; K21.9 Gastro-esophageal reflux disease without esophagitis; M19.90 Unspecified osteoarthritis, unspecified site; E66.9 Obesity, unspecified; N40.0 Benign prostatic hyperplasia without lower urinary tract symptoms; E03.9 Hypothyroidism, unspecified; F17.210 Nicotine dependence, cigarettes, uncomplicated; F15.90 Other stimulant use, unspecified, uncomplicated; R53.81 Other malaise; I50.9 Heart failure, unspecified; I27.20 Pulmonary hypertension, unspecified; N18.2 Chronic kidney disease, stage 2 (mild); Z95.5 Presence of coronary angioplasty implant and graft; Z99.81 Dependence on supplemental oxygen; I25.2 Old myocardial infarction; Z87.442 Personal history of urinary calculi; Z91.014 Allergy to mammalian meats; Z79.01 Long term (current) use of anticoagulants; Z79.899 Other long term (current) drug therapy; Z79.02 Long term (current) use of antithrombotics/antiplatelets; Z79.1 Long term (current) use of non-steroidal anti-inflammatories (NSAID); Z98.49 Cataract extraction status, unspecified eye; Z90.89 Acquired absence of other organs; Z98.890 Other specified postprocedural states; Z98.52 Vasectomy status; Z90.5 Acquired absence of kidney; Z68.27 Body mass index [BMI] 27.0-27.9, adult
CPT/HCPCS: 36415; 71045; 80053; 83605; 83735; 83880; 84484; 85025; 85379; 87428; 93005; 96365; 96375; 99285; J3475; J3490; 36600; 70450; 70450-26; 71275; 71275-26; 81001; 82803; 84443; 86140; 87040; 87070; 87205; 93010; 93306; 94640; 94667; 94668; 94760; 94761; 97110-GP; 97116-GP; 97161-GP; 97530-GP; A9270-GY; J0456; J0696; J2919; J7512; Q9967

== ENCOUNTER 2024-06-12 15:35 | Inpatient (IN) | payer MEDICARE, BC ==
[2024-06-12] MEDS ORDERED: Sodium Chloride 0.9% 10 ML Syringe FLUSH PRN (15:41)
[2024-06-12 16:00] LABS: BASOPHILS ABSOLUTE AUTO 0.1 K/mm3 (0.0-0.2); BASOPHILS PERCENT AUTO 0.8 % (0.0-1.0); EOSINOPHILS ABSOLUTE AUTO 0.2 K/mm3 (0.0-0.4); EOSINOPHILS PERCENT AUTO 1.9 % (0.0-6.0); HEMATOCRIT 36.8 % (42.0-52.0); HEMOGLOBIN 12.2 gm/dl (14.0-18.0); IMMATURE GRAN ABSOLUTE AUTO 0.06 K/mm3 (0.00-0.05); IMMATURE GRAN PERCENT AUTO 0.8 % (0.0-0.4); LYMPHOCYTES ABSOLUTE AUTO 1.5 K/mm3 (1.0-4.8); LYMPHOCYTES PERCENT AUTO 19.2 % (24.0-44.0); MEAN CORPUSCULAR HEMOGLOBIN 30.5 pg (28.0-32.0); MEAN CORPUSCULAR HGB CONC 33.2 g/dl (32.0-36.0); MEAN PLATELET VOLUME 12.4 fl (9.4-12.4); MONOCYTES ABSOLUTE AUTO 0.6 K/mm3 (0.0-0.8); MONOCYTES PERCENT AUTO 7.8 % (0.0-8.0); NEUTROPHILS ABSOLUTE AUTO 5.6 K/mm3 (1.8-7.7); NEUTROPHILS PERCENT AUTO 69.5 % (41.0-71.0); PLATELET COUNT,PLT 121 K/mm3 (150-400); WHITE BLOOD CELL COUNT,WBC 7.98 K/mm3 (3.9-11.3)
[2024-06-12] MEDS: HYDROmorphone 0.5 MG/0.5 ML Syringe IVPUSH ONE ×2 (16:12→16:31)
[2024-06-12 16:17] LABS: INR 1.04
[2024-06-12 16:18] LABS: PTT,PARTIAL THROMBOPLSTIN TIME 27.7 SECONDS (21.7-31.4)
[2024-06-12 16:25] LABS: A/G RATIO 0.7 (1-2); ALBUMIN 2.8 g/dl (3.4-5.0); ANION GAP 9.2 (5-15); BILIRUBIN TOTAL 0.6 mg/dL (0.2-1.0); BUN/CREATININE RATIO 12.3 (14-18); CALCIUM 9.9 mg/dL (8.5-10.1); CREATININE 1.3 mg/dL (0.7-1.3); EST CRCL DRUG DOSING (CG) 60.28 mL/min; MAGNESIUM 1.6 mg/dL (1.8-2.4); POTASSIUM,K 4.2 mEq/L (3.5-5.1); PROTEIN TOTAL,TP 6.6 g/dl (6.4-8.2)
[2024-06-12] MEDS ORDERED: Polyethylene Glycol 3350 Powder 17 GM Packet PO PRN (17:47)
[2024-06-12] MEDS: Lidocaine/Epineph/Tetracaine 3 ML Syringe TOP ONE (17:54)
[2024-06-12] MEDS: HYDROmorphone 1 MG/ML Syringe IVPUSH ONE (18:52)
[2024-06-12] MEDS: Magnesium Sulf/Wat 2 GM/50 mL 2 GM in Premix Bag 1 BAG IV ONE (20:11)
[2024-06-12] MEDS: oxyCODONE 5 MG Tab PO PRN (20:12)
[2024-06-12] MEDS: busPIRone 5 MG Tab PO SCH (20:12)
[2024-06-12] MEDS: Pregabalin 75 MG Cap PO SCH (20:12)
[2024-06-12] MEDS: Losartan 50 MG Tab PO SCH (20:13)
[2024-06-12] MEDS: Oxybutynin 5 MG Tab PO SCH (20:13)
[2024-06-12] MEDS: Albuterol/Ipratropium 3.0-0.5 MG/3 ML Neb Soln NEB SCH (21:24)
[2024-06-12] MEDS: Acetaminophen 325 MG Tab PO SCH (21:38)
[2024-06-12] MEDS: guaiFENesin 600 MG Tab.ER PO SCH (21:41)
[2024-06-12] MEDS: HYDROmorphone 1 MG/ML Syringe IVPUSH PRN (22:08)
[2024-06-13 05:26] LABS: HEMATOCRIT 34.5 % (42.0-52.0); HEMOGLOBIN 11.4 gm/dl (14.0-18.0); MEAN CORPUSCULAR HEMOGLOBIN 30.1 pg (28.0-32.0); MEAN PLATELET VOLUME 11.9 fl (9.4-12.4); PLATELET COUNT,PLT 106 K/mm3 (150-400); RED BLOOD CELL COUNT 3.79 M/mm3 (4.52-5.90); WHITE BLOOD CELL COUNT,WBC 9.21 K/mm3 (3.9-11.3)
[2024-06-13 06:00] LABS: ANION GAP 11.2 (5-15); BUN/CREATININE RATIO 12.7 (14-18); CALCIUM 9.6 mg/dL (8.5-10.1); CREATININE 1.1 mg/dL (0.7-1.3); EST CRCL DRUG DOSING (CG) 71.24 mL/min; MAGNESIUM 1.9 mg/dL (1.8-2.4); POTASSIUM,K 4.2 mEq/L (3.5-5.1)
[2024-06-13] MEDS: Levothyroxine 25 MCG Tab PO SCH (06:06)
[2024-06-13] MEDS: Levothyroxine 100 MCG Tab PO SCH (06:06)
[2024-06-13] MEDS: atorvaSTATin 20 MG Tab PO SCH (08:14)
[2024-06-13] MEDS: Doxazosin 2 MG Tab PO SCH (08:14)
[2024-06-13] MEDS: Citalopram 20 MG Tab PO SCH (08:14)
[2024-06-13] MEDS: Isosorbide Mononitrate 60 MG Tab.ER PO SCH (08:15)
[2024-06-13] MEDS: Bumetanide 1 MG Tab PO SCH (08:15)
[2024-06-13] MEDS: Enoxaparin 40 MG/0.4 ML Syringe SUBCUT SCH (08:17)
[2024-06-13] MEDS ORDERED: Non-Formulary Medication 1 Each (Escitalopram 20 MG Tablet) PO SCH (09:00)
[2024-06-13] MEDS ORDERED: Ondansetron 4 MG/2 ML SDV IV PRN (09:13)
[2024-06-13] MEDS ORDERED: Ondansetron 4 MG Tab.DIS PO PRN (09:13)
[2024-06-13] MEDS ORDERED: Albuterol 0.083% 2.5 MG/3 ML Neb Soln NEB PRN (09:13)
[2024-06-13] MEDS: Tiotropium Bromide 4 GM Inhalation Spray (2.5mcg/1 dose; 10 doses) INH SCH (09:30)
[2024-06-13] MEDS: Formoterol/Mometasone 200-5 MCG 8.8 GM Inhaler IH SCH (09:31)
[2024-06-13] MEDS: Cyclobenzaprine 10 MG Tab PO PRN (10:26)
[2024-06-13] MEDS: Metoprolol Succinate 25 MG Tab.ER PO SCH (10:27)
[2024-06-13] MEDS: Docusate Sodium 100 MG Cap PO SCH (10:27)
[2024-06-13] MEDS: Pantoprazole 40 MG Tab.CR PO SCH (10:29)
[2024-06-13] MEDS: Tamsulosin 0.4 MG Cap.ER PO SCH (18:47)
[2024-06-13] MEDS: oxyCODONE 5 MG Tab PO PRN (20:27)
[2024-06-13] MEDS: Sennosides/Docusate Sodium 50-8.6 MG Tab PO PRN (20:27)
[2024-06-14 04:21] LABS: BASOPHILS PERCENT AUTO 0.5 % (0.0-1.0); EOSINOPHILS ABSOLUTE AUTO 0.1 K/mm3 (0.0-0.4); EOSINOPHILS PERCENT AUTO 2.1 % (0.0-6.0); HEMATOCRIT 32.6 % (42.0-52.0); HEMOGLOBIN 10.8 gm/dl (14.0-18.0); IMMATURE GRAN ABSOLUTE AUTO 0.03 K/mm3 (0.00-0.05); IMMATURE GRAN PERCENT AUTO 0.5 % (0.0-0.4); LYMPHOCYTES ABSOLUTE AUTO 1.3 K/mm3 (1.0-4.8); LYMPHOCYTES PERCENT AUTO 20.3 % (24.0-44.0); MEAN CORPUSCULAR HEMOGLOBIN 30.1 pg (28.0-32.0); MEAN CORPUSCULAR HGB CONC 33.1 g/dl (32.0-36.0); MEAN CORPUSCULAR VOLUME 90.8 fl (83.0-99.0); MEAN PLATELET VOLUME 12.6 fl (9.4-12.4); MONOCYTES ABSOLUTE AUTO 0.6 K/mm3 (0.0-0.8); MONOCYTES PERCENT AUTO 9.7 % (0.0-8.0); NEUTROPHILS ABSOLUTE AUTO 4.2 K/mm3 (1.8-7.7); NEUTROPHILS PERCENT AUTO 66.9 % (41.0-71.0); PLATELET COUNT,PLT 95 K/mm3 (150-400); RED BLOOD CELL COUNT 3.59 M/mm3 (4.52-5.90)
[2024-06-14 05:14] LABS: SLIDE REVIEW ABNORMAL SMEAR
[2024-06-14 05:16] LABS: A/G RATIO 0.6 (1-2); ALBUMIN 2.1 g/dl (3.4-5.0); ANION GAP 11.9 (5-15); BUN/CREATININE RATIO 11.8 (14-18); CALCIUM 9.4 mg/dL (8.5-10.1); CREATININE 1.1 mg/dL (0.7-1.3); EST CRCL DRUG DOSING (CG) 71.24 mL/min; MAGNESIUM 1.8 mg/dL (1.8-2.4); POTASSIUM,K 3.9 mEq/L (3.5-5.1); PROTEIN TOTAL,TP 5.7 g/dl (6.4-8.2)
[2024-06-14] MEDS: Magnesium Sulf/Wat 2 GM/50 mL 2 GM in Premix Bag 1 BAG IV ONE (08:11)
[2024-06-15 04:42] LABS: BASOPHILS PERCENT AUTO 0.6 % (0.0-1.0); EOSINOPHILS ABSOLUTE AUTO 0.2 K/mm3 (0.0-0.4); HEMATOCRIT 32.7 % (42.0-52.0); IMMATURE GRAN ABSOLUTE AUTO 0.01 K/mm3 (0.00-0.05); IMMATURE GRAN PERCENT AUTO 0.2 % (0.0-0.4); LYMPHOCYTES ABSOLUTE AUTO 1.3 K/mm3 (1.0-4.8); LYMPHOCYTES PERCENT AUTO 19.6 % (24.0-44.0); MEAN CORPUSCULAR HEMOGLOBIN 30.2 pg (28.0-32.0); MEAN CORPUSCULAR HGB CONC 33.6 g/dl (32.0-36.0); MEAN CORPUSCULAR VOLUME 89.8 fl (83.0-99.0); MEAN PLATELET VOLUME 12.4 fl (9.4-12.4); MONOCYTES ABSOLUTE AUTO 0.6 K/mm3 (0.0-0.8); NEUTROPHILS ABSOLUTE AUTO 4.3 K/mm3 (1.8-7.7); NEUTROPHILS PERCENT AUTO 66.6 % (41.0-71.0); PLATELET COUNT,PLT 90 K/mm3 (150-400); RED BLOOD CELL COUNT 3.64 M/mm3 (4.52-5.90); WHITE BLOOD CELL COUNT,WBC 6.39 K/mm3 (3.9-11.3)
[2024-06-15 05:08] LABS: A/G RATIO 0.5 (1-2); ALBUMIN 1.9 g/dl (3.4-5.0); BILIRUBIN TOTAL 0.8 mg/dL (0.2-1.0); BUN/CREATININE RATIO 13.3 (14-18); CALCIUM 9.1 mg/dL (8.5-10.1); CREATININE 1.2 mg/dL (0.7-1.3); EST CRCL DRUG DOSING (CG) 65.3 mL/min; MAGNESIUM 1.9 mg/dL (1.8-2.4); PROTEIN TOTAL,TP 5.9 g/dl (6.4-8.2)
[2024-06-15 05:33] LABS: SLIDE REVIEW ABNORMAL SMEAR
[2024-06-15 12:11] VITALS: BP 156/64; PULSE 77
== END 2024-06-15 13:51 | DRG 535 ==
LOC: JD.ED 15:35 → JD.MS 17:47
PROVIDERS: ADMIT Family Medicine; ATTEND Student in an Organized Health Care Education/Training Program
DX: S72.142A Displaced intertrochanteric fracture of left femur, initial encounter for closed fracture (principal); I50.33 Acute on chronic diastolic (congestive) heart failure; S01.01XA Laceration without foreign body of scalp, initial encounter; I48.91 Unspecified atrial fibrillation; Z68.28 Body mass index [BMI] 28.0-28.9, adult; H91.90 Unspecified hearing loss, unspecified ear; I50.9 Heart failure, unspecified; H54.7 Unspecified visual loss; I25.10 Atherosclerotic heart disease of native coronary artery without angina pectoris; E78.00 Pure hypercholesterolemia, unspecified; I11.0 Hypertensive heart disease with heart failure; I25.2 Old myocardial infarction; J44.9 Chronic obstructive pulmonary disease, unspecified; K21.9 Gastro-esophageal reflux disease without esophagitis; Z79.890 Hormone replacement therapy; Z79.899 Other long term (current) drug therapy; N40.0 Benign prostatic hyperplasia without lower urinary tract symptoms; N20.0 Calculus of kidney; G89.29 Other chronic pain; M54.9 Dorsalgia, unspecified; M19.90 Unspecified osteoarthritis, unspecified site; G62.9 Polyneuropathy, unspecified; W19.XXXA Unspecified fall, initial encounter; M51.369 Other intervertebral disc degeneration, lumbar region without mention of lumbar back pain or lower extremity pain; G47.33 Obstructive sleep apnea (adult) (pediatric); R09.02 Hypoxemia; E03.9 Hypothyroidism, unspecified; E66.9 Obesity, unspecified; Z79.01 Long term (current) use of anticoagulants; Z85.53 Personal history of malignant neoplasm of renal pelvis; Z98.49 Cataract extraction status, unspecified eye; Z90.49 Acquired absence of other specified parts of digestive tract; Z95.5 Presence of coronary angioplasty implant and graft; Z96.89 Presence of other specified functional implants; Z79.52 Long term (current) use of systemic steroids; Z91.040 Latex allergy status
CPT/HCPCS: 12002; 36415; 70450; 71045; 72125; 72192; 73501; 80053; 83735; 84484; 85025; 85610; 85730; 93005; 96374; 99285; A9270; 80048; 85027; 93010; 94640; 94660; 94761; 99222; 99232; 99239; J1171; J1650; J3475

== ENCOUNTER 2024-07-26 15:19 | Inpatient (IN) | payer MEDICARE, BC ==
[2024-07-26] MEDS: Albuterol/Ipratropium 3.0-0.5 MG/3 ML Neb Soln NEB ONE (16:43)
[2024-07-26 16:45] LABS: BASOPHILS ABSOLUTE AUTO 0.1 K/mm3 (0.0-0.2); BASOPHILS PERCENT AUTO 0.4 % (0.0-1.0); EOSINOPHILS ABSOLUTE AUTO 0.1 K/mm3 (0.0-0.4); EOSINOPHILS PERCENT AUTO 0.5 % (0.0-6.0); HEMATOCRIT 31.6 % (42.0-52.0); IMMATURE GRAN ABSOLUTE AUTO 0.05 K/mm3 (0.00-0.05); IMMATURE GRAN PERCENT AUTO 0.3 % (0.0-0.4); LYMPHOCYTES ABSOLUTE AUTO 2.4 K/mm3 (1.0-4.8); LYMPHOCYTES PERCENT AUTO 16.5 % (24.0-44.0); MEAN CORPUSCULAR HEMOGLOBIN 28.6 pg (28.0-32.0); MEAN CORPUSCULAR HGB CONC 31.6 g/dl (32.0-36.0); MEAN CORPUSCULAR VOLUME 90.3 fl (83.0-99.0); MEAN PLATELET VOLUME 10.5 fl (9.4-12.4); MONOCYTES ABSOLUTE AUTO 0.8 K/mm3 (0.0-0.8); MONOCYTES PERCENT AUTO 5.7 % (0.0-8.0); NEUTROPHILS ABSOLUTE AUTO 11.2 K/mm3 (1.8-7.7); NEUTROPHILS PERCENT AUTO 76.6 % (41.0-71.0); PLATELET COUNT,PLT 220 K/mm3 (150-400); WHITE BLOOD CELL COUNT,WBC 14.61 K/mm3 (3.9-11.3)
[2024-07-26 17:02] LABS: LACTIC ACID 1.5 mmol/L (0.4-2.0)
[2024-07-26 17:05] LABS: A/G RATIO 0.5 (1-2); ALBUMIN 2.2 g/dl (3.4-5.0); ANION GAP 9.2 (5-15); BILIRUBIN TOTAL 0.5 mg/dL (0.2-1.0); BUN/CREATININE RATIO 14.6 (14-18); C-REACTIVE PROTEIN 7.58 mg/dL (<0.30); CALCIUM 9.9 mg/dL (8.5-10.1); CREATININE 1.3 mg/dL (0.7-1.3); EST CRCL DRUG DOSING (CG) 58.68 mL/min; MAGNESIUM 1.7 mg/dL (1.8-2.4); POTASSIUM,K 4.2 mEq/L (3.5-5.1); PROTEIN TOTAL,TP 6.9 g/dl (6.4-8.2)
[2024-07-26] MEDS: Sodium Chloride 0.9% 10 ML Syringe FLUSH PRN (17:08)
[2024-07-26] MEDS: cefTRIAXone 2 GM Vial IVPUSH ONE (17:08)
[2024-07-26] MEDS: cefTRIAXone 2 GM in Sodium Chloride 0.9% 100 ML IV ONE (17:12)
[2024-07-26] MEDS: Azithromycin 500 MG in Sodium Chloride 0.9% 250 ML IV ONE (17:36)
[2024-07-26] MEDS ORDERED: Magnesium Sulfat/D5W 1GM/100ML 1 GM in Premix Bag 1 BAG IV ONE (18:27)
[2024-07-26] MEDS ORDERED: Acetaminophen 325 MG Tab PO PRN (18:28)
[2024-07-26] MEDS ORDERED: Melatonin 3 MG Tab PO PRN (18:28)
[2024-07-26] MEDS ORDERED: Naloxone 0.4 MG/ML SDV IVPUSH PRN (18:28)
[2024-07-26] MEDS ORDERED: Morphine 2 MG/ML SYRINGE IVPUSH PRN (18:28)
[2024-07-26] MEDS ORDERED: Sennosides/Docusate Sodium 50-8.6 MG Tab PO PRN (18:28)
[2024-07-26] MEDS ORDERED: Ondansetron 4 MG/2 ML SDV IV PRN (18:28)
[2024-07-26] MEDS ORDERED: predniSONE 20 MG Tab PO ONE (19:15)
[2024-07-26] MEDS: Albuterol/Ipratropium 3.0-0.5 MG/3 ML Neb Soln NEB PRN (21:34)
[2024-07-26] MEDS: Sodium Chloride 3% Inhalation Soln 4 ML Neb NEB SCH (21:34)
[2024-07-26] MEDS: Magnesium Sulfat/D5W 1GM/100ML 1 GM in Premix Bag 1 BAG IV ONE (23:17)
[2024-07-26] MEDS: Apixaban 5 MG Tab PO SCH ×2 (23:21→23:34)
[2024-07-26] MEDS: predniSONE 20 MG Tab PO ONE (23:21)
[2024-07-26] MEDS: Azithromycin 500 MG in Sodium Chloride 0.9% 250 ML IV SCH (23:34)
[2024-07-26] MEDS: cefTRIAXone 1 GM Vial IVPUSH SCH (23:34)
[2024-07-27 04:57] LABS: BASOPHILS PERCENT AUTO 0.4 % (0.0-1.0); EOSINOPHILS PERCENT AUTO 0.1 % (0.0-6.0); HEMATOCRIT 33.1 % (42.0-52.0); HEMOGLOBIN 10.3 gm/dl (14.0-18.0); IMMATURE GRAN ABSOLUTE AUTO 0.03 K/mm3 (0.00-0.05); IMMATURE GRAN PERCENT AUTO 0.4 % (0.0-0.4); LYMPHOCYTES ABSOLUTE AUTO 0.7 K/mm3 (1.0-4.8); LYMPHOCYTES PERCENT AUTO 9.8 % (24.0-44.0); MEAN CORPUSCULAR HEMOGLOBIN 28.3 pg (28.0-32.0); MEAN CORPUSCULAR HGB CONC 31.1 g/dl (32.0-36.0); MEAN CORPUSCULAR VOLUME 90.9 fl (83.0-99.0); MEAN PLATELET VOLUME 10.6 fl (9.4-12.4); MONOCYTES ABSOLUTE AUTO 0.1 K/mm3 (0.0-0.8); MONOCYTES PERCENT AUTO 1.1 % (0.0-8.0); NEUTROPHILS ABSOLUTE AUTO 6.5 K/mm3 (1.8-7.7); NEUTROPHILS PERCENT AUTO 88.2 % (41.0-71.0); PLATELET COUNT,PLT 213 K/mm3 (150-400); RED BLOOD CELL COUNT 3.64 M/mm3 (4.52-5.90); WHITE BLOOD CELL COUNT,WBC 7.32 K/mm3 (3.9-11.3)
[2024-07-27 05:33] LABS: A/G RATIO 0.4 (1-2); ALBUMIN 2.1 g/dl (3.4-5.0); ANION GAP 9.2 (5-15); BILIRUBIN TOTAL 0.4 mg/dL (0.2-1.0); BUN/CREATININE RATIO 15.5 (14-18); C-REACTIVE PROTEIN 9.27 mg/dL (<0.30); CALCIUM 9.7 mg/dL (8.5-10.1); CREATININE 1.1 mg/dL (0.7-1.3); EST CRCL DRUG DOSING (CG) 69.35 mL/min; PHOSPHORUS 3.1 mg/dL (2.6-4.7); POTASSIUM,K 4.2 mEq/L (3.5-5.1)
[2024-07-27] MEDS: predniSONE 20 MG Tab PO SCH (06:04)
[2024-07-27] MEDS: Pantoprazole 40 MG Tab.CR PO SCH (06:04)
[2024-07-27] MEDS: cefTRIAXone 1 GM Vial IVPUSH SCH (08:03)
[2024-07-27] MEDS: Azithromycin 500 MG in Sodium Chloride 0.9% 250 ML IV SCH (08:03)
[2024-07-27] MEDS: oxyCODONE 5 MG Tab PO PRN (08:15)
[2024-07-27] MEDS ORDERED: Nitroglycerin 0.4 MG Tab.SL SL PRN (12:37)
[2024-07-27] MEDS: Bumetanide 1 MG/4 ML MDV IVPUSH ONE (15:09)
[2024-07-27] MEDS: busPIRone 5 MG Tab PO SCH (15:10)
[2024-07-27] MEDS: guaiFENesin 600 MG Tab.ER PO SCH (20:32)
[2024-07-27] MEDS: Tamsulosin 0.4 MG Cap.ER PO SCH (20:33)
[2024-07-27] MEDS: Melatonin 3 MG Tab PO SCH (20:33)
[2024-07-27] MEDS: Pregabalin 75 MG Cap PO SCH (20:34)
[2024-07-27] MEDS: Acetaminophen 325 MG Tab PO SCH (20:35)
[2024-07-27] MEDS: Formoterol/Mometasone 200-5 MCG 8.8 GM Inhaler INH SCH (20:48)
[2024-07-28 04:23] LABS: BASOPHILS ABSOLUTE AUTO 0.1 K/mm3 (0.0-0.2); BASOPHILS PERCENT AUTO 0.6 % (0.0-1.0); EOSINOPHILS PERCENT AUTO 0.2 % (0.0-6.0); HEMATOCRIT 32.2 % (42.0-52.0); HEMOGLOBIN 10.4 gm/dl (14.0-18.0); IMMATURE GRAN ABSOLUTE AUTO 0.05 K/mm3 (0.00-0.05); IMMATURE GRAN PERCENT AUTO 0.6 % (0.0-0.4); LYMPHOCYTES ABSOLUTE AUTO 1.9 K/mm3 (1.0-4.8); LYMPHOCYTES PERCENT AUTO 20.8 % (24.0-44.0); MEAN CORPUSCULAR HEMOGLOBIN 28.1 pg (28.0-32.0); MEAN CORPUSCULAR HGB CONC 32.3 g/dl (32.0-36.0); MEAN PLATELET VOLUME 10.5 fl (9.4-12.4); MONOCYTES ABSOLUTE AUTO 0.5 K/mm3 (0.0-0.8); MONOCYTES PERCENT AUTO 5.8 % (0.0-8.0); NEUTROPHILS ABSOLUTE AUTO 6.5 K/mm3 (1.8-7.7); PLATELET COUNT,PLT 196 K/mm3 (150-400)
[2024-07-28 04:47] LABS: A/G RATIO 0.5 (1-2); ALBUMIN 2.1 g/dl (3.4-5.0); ANION GAP 11.5 (5-15); BILIRUBIN TOTAL 0.4 mg/dL (0.2-1.0); C-REACTIVE PROTEIN 5.33 mg/dL (<0.30); EST CRCL DRUG DOSING (CG) 76.28 mL/min; MAGNESIUM 1.8 mg/dL (1.8-2.4); POTASSIUM,K 3.5 mEq/L (3.5-5.1); PROTEIN TOTAL,TP 6.8 g/dl (6.4-8.2)
[2024-07-28] MEDS: Levothyroxine 100 MCG Tab PO SCH (06:23)
[2024-07-28] MEDS: Bumetanide 1 MG Tab PO SCH (08:21)
[2024-07-28] MEDS: Metoprolol Succinate 25 MG Tab.ER PO SCH (08:21)
[2024-07-28] MEDS: Sennosides/Docusate Sodium 50-8.6 MG Tab PO SCH (08:21)
[2024-07-28] MEDS: Citalopram 20 MG Tab PO SCH (08:21)
[2024-07-28] MEDS: Isosorbide Mononitrate 60 MG Tab.ER PO SCH (08:21)
[2024-07-28] MEDS: atorvaSTATin 20 MG Tab PO SCH (08:22)
[2024-07-28] MEDS: Pantoprazole 40 MG Tab.CR PO SCH (08:22)
[2024-07-28] MEDS: Allopurinol 100 MG Tab PO SCH (08:22)
[2024-07-28] MEDS: Tiotropium Bromide 4 GM Inhalation Spray (2.5mcg/1 dose; 10 doses) INH SCH (09:06)
[2024-07-28 12:57] VITALS: BP 165/71; PULSE 56
[2024-07-29] MEDS ORDERED: Levothyroxine 25 MCG Tab PO SCH (06:00)
== END 2024-07-28 12:51 | DRG 193 ==
LOC: JD.ED 15:19 → JD.MS 17:39
PROVIDERS: ADMIT Student in an Organized Health Care Education/Training Program; ATTEND Family Medicine
DX: J18.9 Pneumonia, unspecified organism (principal); I50.33 Acute on chronic diastolic (congestive) heart failure; J96.21 Acute and chronic respiratory failure with hypoxia; J44.1 Chronic obstructive pulmonary disease with (acute) exacerbation; J44.0 Chronic obstructive pulmonary disease with (acute) lower respiratory infection; R09.02 Hypoxemia; R79.89 Other specified abnormal findings of blood chemistry; H91.90 Unspecified hearing loss, unspecified ear; H54.7 Unspecified visual loss; R05.9 Cough, unspecified; I25.10 Atherosclerotic heart disease of native coronary artery without angina pectoris; I11.0 Hypertensive heart disease with heart failure; E78.00 Pure hypercholesterolemia, unspecified; I50.9 Heart failure, unspecified; G47.30 Sleep apnea, unspecified; I25.2 Old myocardial infarction; N40.0 Benign prostatic hyperplasia without lower urinary tract symptoms; N20.0 Calculus of kidney; M54.9 Dorsalgia, unspecified; G89.29 Other chronic pain; M19.90 Unspecified osteoarthritis, unspecified site; M51.369 Other intervertebral disc degeneration, lumbar region without mention of lumbar back pain or lower extremity pain; J44.9 Chronic obstructive pulmonary disease, unspecified; K21.9 Gastro-esophageal reflux disease without esophagitis; Z85.850 Personal history of malignant neoplasm of thyroid; I48.91 Unspecified atrial fibrillation; E03.9 Hypothyroidism, unspecified; Z79.52 Long term (current) use of systemic steroids; Z98.49 Cataract extraction status, unspecified eye; Z98.890 Other specified postprocedural states; Z95.5 Presence of coronary angioplasty implant and graft; Z90.49 Acquired absence of other specified parts of digestive tract; E66.9 Obesity, unspecified; Z87.891 Personal history of nicotine dependence; Z79.01 Long term (current) use of anticoagulants; Z79.899 Other long term (current) drug therapy; Z91.040 Latex allergy status; Z68.28 Body mass index [BMI] 28.0-28.9, adult
CPT/HCPCS: 36415; 71045; 80053; 83605; 83735; 83880; 84484; 85025; 86140; 87040 ×2; 87428; 93005; 94640; 96374; 96375; 99285; A9270; J0456; J0696; 71250; 71250-26; 84100; 94660; 94667; 94668; 94761; 97110-GP; 97116-GP; 97162-GP; 97530-GP; 99283; J3475; J3490; J7512

== ENCOUNTER 2024-08-09 05:48 | Inpatient (IN) | payer MEDICARE, BC ==
[2024-08-09] MEDS: Albuterol/Ipratropium 3.0-0.5 MG/3 ML Neb Soln NEB SCH ×2 (06:10→09:47)
[2024-08-09 06:44] LABS: BASOPHILS ABSOLUTE AUTO 0.1 K/mm3 (0.0-0.2); BASOPHILS PERCENT AUTO 0.2 % (0.0-1.0); EOSINOPHILS ABSOLUTE AUTO 0.1 K/mm3 (0.0-0.4); EOSINOPHILS PERCENT AUTO 0.4 % (0.0-6.0); HEMATOCRIT 32.7 % (42.0-52.0); HEMOGLOBIN 10.3 gm/dl (14.0-18.0); IMMATURE GRAN ABSOLUTE AUTO 0.12 K/mm3 (0.00-0.05); IMMATURE GRAN PERCENT AUTO 0.6 % (0.0-0.4); LYMPHOCYTES ABSOLUTE AUTO 1.3 K/mm3 (1.0-4.8); LYMPHOCYTES PERCENT AUTO 6.1 % (24.0-44.0); MEAN CORPUSCULAR HEMOGLOBIN 28.2 pg (28.0-32.0); MEAN CORPUSCULAR HGB CONC 31.5 g/dl (32.0-36.0); MEAN CORPUSCULAR VOLUME 89.6 fl (83.0-99.0); MEAN PLATELET VOLUME 10.6 fl (9.4-12.4); MONOCYTES ABSOLUTE AUTO 1.1 K/mm3 (0.0-0.8); MONOCYTES PERCENT AUTO 5.4 % (0.0-8.0); NEUTROPHILS ABSOLUTE AUTO 18.3 K/mm3 (1.8-7.7); NEUTROPHILS PERCENT AUTO 87.3 % (41.0-71.0); PLATELET COUNT,PLT 156 K/mm3 (150-400); RED BLOOD CELL COUNT 3.65 M/mm3 (4.52-5.90); WHITE BLOOD CELL COUNT,WBC 20.92 K/mm3 (3.9-11.3)
[2024-08-09 06:59] LABS: BASE EXCESS ARTERIAL 4.9 (-2-2.0); BICARBONATE,ARTERIAL 29.2 meq/L (22.0-26.0); O2 SATURATION ARTERIAL 95.4 % (96.0-97.0)
[2024-08-09 07:09] LABS: A/G RATIO 0.6 (1-2); ALBUMIN 2.2 g/dl (3.4-5.0); ANION GAP 11.6 (5-15); BILIRUBIN TOTAL 0.5 mg/dL (0.2-1.0); BUN/CREATININE RATIO 15.7 (14-18); CALCIUM 9.2 mg/dL (8.5-10.1); CREATININE 1.4 mg/dL (0.7-1.3); EST CRCL DRUG DOSING (CG) 55.36 mL/min; LACTIC ACID 1.1 mmol/L (0.4-2.0); MAGNESIUM 1.5 mg/dL (1.8-2.4); POTASSIUM,K 4.6 mEq/L (3.5-5.1)
[2024-08-09] MEDS: Sodium Chloride 0.9% 250 ML IV ONE (07:09)
[2024-08-09] MEDS: Piperacillin/Tazobactam 4.5 GM in Sodium Chloride 0.9% 100 ML IV ONE (07:11)
[2024-08-09] MEDS: Sodium Chloride 0.9% 10 ML Syringe FLUSH PRN (07:12)
[2024-08-09] MEDS: HYDROmorphone 0.5 MG/0.5 ML Syringe IVPUSH ONE (07:43)
[2024-08-09] MEDS: Magnesium Sulf/Wat 4 GM/50 mL 4 GM in Premix Bag 1 BAG IV ONE (07:44)
[2024-08-09] MEDS ORDERED: 50% Dextrose in Water 50 ML Syringe IVPUSH PRN (08:01)
[2024-08-09] MEDS ORDERED: Albuterol/Ipratropium 3.0-0.5 MG/3 ML Neb Soln NEB PRN (08:05)
[2024-08-09] MEDS: Hydrocortisone Sodium Succinate 100 MG/2 ML SDV IVPUSH ONE (08:10)
[2024-08-09 08:19] LABS: CORONAVIRUS COVID-19 NAA NEGATIVE (NEGATIVE); INFLUENZA A NAA NEGATIVE (NEGATIVE); RESPIRATORY SYNCYTIAL VIR NAA NEGATIVE (NEGATIVE)
[2024-08-09] MEDS ORDERED: Hydrocortisone Sodium Succinate 100 MG/2 ML SDV IVPUSH ONE (08:30)
[2024-08-09] MEDS: Pantoprazole 40 MG Vial IVPUSH ONE (09:40)
[2024-08-09] MEDS ORDERED: Acetaminophen 325 MG Tab PO PRN (09:48)
[2024-08-09] MEDS ORDERED: Albuterol 0.083% 2.5 MG/3 ML Neb Soln NEB PRN (09:48)
[2024-08-09] MEDS ORDERED: Ondansetron 4 MG/2 ML SDV IV PRN (09:48)
[2024-08-09] MEDS ORDERED: Sennosides/Docusate Sodium 50-8.6 MG Tab PO PRN (09:48)
[2024-08-09] MEDS ORDERED: HYDROmorphone 0.5 MG/0.5 ML Syringe IVPUSH PRN (09:48)
[2024-08-09] MEDS: Apixaban 5 MG Tab PO SCH (10:41)
[2024-08-09] MEDS: VANCOmycin 1 GM in Sodium Chloride 0.9% 250 ML IV SCH (10:41)
[2024-08-09] MEDS: Piperacillin/Tazobactam 4.5 GM in Sodium Chloride 0.9% 100 ML IV SCH (10:41)
[2024-08-09] MEDS: Insulin Lispro 100 Unit/ML 3 ML KwikPen SUBCUT SCH (10:52)
[2024-08-09] MEDS: Levothyroxine 100 MCG Tab PO SCH (13:07)
[2024-08-09] MEDS: Pregabalin 75 MG Cap PO SCH (13:23)
[2024-08-09 13:41] LABS: APPEARANCE,URINE CLEAR (Clear); BILIRUBIN,URINE NEGATIVE (Negative); COLOR,URINE YELLOW (Yellow); GLUCOSE,URINE NEGATIVE (Negative); KETONES,URINE NEGATIVE (Negative); LEUKOCYTE ESTERASE,URINE TRACE (Negative); NITRITE,URINE NEGATIVE (Negative); OCCULT BLOOD,URINE NEGATIVE (Negative); PROTEIN,URINE TRACE (Negative); UROBILINOGEN,URINE 0.2 (0.2-1.0)
[2024-08-09 13:49] LABS: BACTERIA,URINE FEW /hpf (FEW); EPITHELIAL CELLS,URINE 0-5 /hpf (0-5); MUCUS,URINE RARE /hpf (FEW); RBC,URINE 0-5 /hpf (0-5)
[2024-08-09] MEDS: Formoterol/Mometasone 200-5 MCG 8.8 GM Inhaler INH SCH (14:17)
[2024-08-09] MEDS: Tiotropium Bromide 4 GM Inhalation Spray (2.5mcg/1 dose; 10 doses) INH SCH (14:18)
[2024-08-09] MEDS: Hydrocortisone Sodium Succinate 100 MG/2 ML SDV IVPUSH SCH (15:28)
[2024-08-09] MEDS: busPIRone 5 MG Tab PO SCH (15:28)
[2024-08-09] MEDS: Acetaminophen/HYDROcodone 325-5 MG Tab PO PRN (15:28)
[2024-08-09] MEDS ORDERED: methylPREDNISolone Sodium Succinate 125 MG/2 ML SDV IVPUSH SCH (16:00)
[2024-08-09] MEDS: Tamsulosin 0.4 MG Cap.ER PO SCH (20:03)
[2024-08-09] MEDS: guaiFENesin 600 MG Tab.ER PO SCH (20:03)
[2024-08-10 04:25] LABS: BASOPHILS PERCENT AUTO 0.2 % (0.0-1.0); HEMATOCRIT 30.7 % (42.0-52.0); IMMATURE GRAN ABSOLUTE AUTO 0.12 K/mm3 (0.00-0.05); IMMATURE GRAN PERCENT AUTO 0.6 % (0.0-0.4); LYMPHOCYTES ABSOLUTE AUTO 1.3 K/mm3 (1.0-4.8); LYMPHOCYTES PERCENT AUTO 6.1 % (24.0-44.0); MEAN CORPUSCULAR HEMOGLOBIN 28.4 pg (28.0-32.0); MEAN CORPUSCULAR HGB CONC 32.6 g/dl (32.0-36.0); MEAN CORPUSCULAR VOLUME 87.2 fl (83.0-99.0); MEAN PLATELET VOLUME 11.5 fl (9.4-12.4); MONOCYTES ABSOLUTE AUTO 0.8 K/mm3 (0.0-0.8); MONOCYTES PERCENT AUTO 3.6 % (0.0-8.0); NEUTROPHILS ABSOLUTE AUTO 19.1 K/mm3 (1.8-7.7); NEUTROPHILS PERCENT AUTO 89.5 % (41.0-71.0); PLATELET COUNT,PLT 153 K/mm3 (150-400); RED BLOOD CELL COUNT 3.52 M/mm3 (4.52-5.90); WHITE BLOOD CELL COUNT,WBC 21.27 K/mm3 (3.9-11.3)
[2024-08-10 04:44] LABS: A/G RATIO 0.5 (1-2); ALBUMIN 2.1 g/dl (3.4-5.0); BILIRUBIN TOTAL 0.5 mg/dL (0.2-1.0); BUN/CREATININE RATIO 20.8 (14-18); C-REACTIVE PROTEIN 11.24 mg/dL (<0.30); CALCIUM 9.7 mg/dL (8.5-10.1); CREATININE 1.2 mg/dL (0.7-1.3); EST CRCL DRUG DOSING (CG) 65.3 mL/min; PHOSPHORUS 3.1 mg/dL (2.6-4.7); PROTEIN TOTAL,TP 6.2 g/dl (6.4-8.2); VANCOMYCIN RANDOM 4.7 ug/mL
[2024-08-10] MEDS: Levothyroxine 25 MCG Tab PO SCH (06:42)
[2024-08-10] MEDS: Pantoprazole 40 MG Tab.CR PO SCH (08:13)
[2024-08-10] MEDS: Citalopram 20 MG Tab PO SCH (08:14)
[2024-08-10] MEDS: Bumetanide 1 MG Tab PO ONE (10:20)
[2024-08-10] MEDS ORDERED: Docusate Sodium 100 MG Cap PO PRN (12:53)
[2024-08-10] MEDS: Sennosides/Docusate Sodium 50-8.6 MG Tab PO SCH (14:44)
[2024-08-10] MEDS: atorvaSTATin 20 MG Tab PO SCH (18:16)
[2024-08-10] MEDS: Melatonin 3 MG Tab PO SCH (20:17)
[2024-08-11 07:24] LABS: BASOPHILS ABSOLUTE AUTO 0.1 K/mm3 (0.0-0.2); BASOPHILS PERCENT AUTO 0.5 % (0.0-1.0); EOSINOPHILS ABSOLUTE AUTO 0.1 K/mm3 (0.0-0.4); EOSINOPHILS PERCENT AUTO 0.7 % (0.0-6.0); HEMATOCRIT 32.4 % (42.0-52.0); HEMOGLOBIN 10.2 gm/dl (14.0-18.0); IMMATURE GRAN ABSOLUTE AUTO 0.05 K/mm3 (0.00-0.05); IMMATURE GRAN PERCENT AUTO 0.4 % (0.0-0.4); LYMPHOCYTES ABSOLUTE AUTO 1.5 K/mm3 (1.0-4.8); LYMPHOCYTES PERCENT AUTO 13.3 % (24.0-44.0); MEAN CORPUSCULAR HEMOGLOBIN 27.9 pg (28.0-32.0); MEAN CORPUSCULAR HGB CONC 31.5 g/dl (32.0-36.0); MEAN CORPUSCULAR VOLUME 88.8 fl (83.0-99.0); MEAN PLATELET VOLUME 11.5 fl (9.4-12.4); MONOCYTES ABSOLUTE AUTO 0.9 K/mm3 (0.0-0.8); MONOCYTES PERCENT AUTO 7.7 % (0.0-8.0); NEUTROPHILS ABSOLUTE AUTO 8.7 K/mm3 (1.8-7.7); NEUTROPHILS PERCENT AUTO 77.4 % (41.0-71.0); PLATELET COUNT,PLT 152 K/mm3 (150-400); RED BLOOD CELL COUNT 3.65 M/mm3 (4.52-5.90); WHITE BLOOD CELL COUNT,WBC 11.19 K/mm3 (3.9-11.3)
[2024-08-11] MEDS: Bumetanide 1 MG Tab PO SCH (07:59)
[2024-08-11] MEDS: Isosorbide Mononitrate 60 MG Tab.ER PO SCH (08:00)
[2024-08-11 08:21] LABS: A/G RATIO 0.6 (1-2); ALBUMIN 2.3 g/dl (3.4-5.0); ANION GAP 15.3 (5-15); BILIRUBIN TOTAL 0.6 mg/dL (0.2-1.0); C-REACTIVE PROTEIN 4.84 mg/dL (<0.30); CALCIUM 9.8 mg/dL (8.5-10.1); CREATININE 1.2 mg/dL (0.7-1.3); EST CRCL DRUG DOSING (CG) 65.3 mL/min; PROTEIN TOTAL,TP 6.5 g/dl (6.4-8.2)
[2024-08-11 08:43] LABS: POTASSIUM,K 3.3 mEq/L (3.5-5.1)
[2024-08-11] MEDS ORDERED: Metoprolol Succinate 25 MG Tab.ER PO SCH (09:00)
[2024-08-11] MEDS: oxyCODONE 5 MG Tab PO SCH ×2 (09:46→12:25)
[2024-08-11] MEDS: Acetaminophen/oxyCODONE 325-5 MG Tab PO SCH ×2 (09:46→12:25)
[2024-08-11] MEDS: Potassium Chloride 20 MEQ Tab.ER PO SCH (10:19)
[2024-08-11] MEDS: Cefepime 2 GM Vial IVPUSH SCH (10:19)
[2024-08-12 04:22] LABS: BASOPHILS ABSOLUTE AUTO 0.1 K/mm3 (0.0-0.2); BASOPHILS PERCENT AUTO 0.7 % (0.0-1.0); EOSINOPHILS ABSOLUTE AUTO 0.3 K/mm3 (0.0-0.4); EOSINOPHILS PERCENT AUTO 3.7 % (0.0-6.0); HEMATOCRIT 29.6 % (42.0-52.0); HEMOGLOBIN 9.5 gm/dl (14.0-18.0); IMMATURE GRAN ABSOLUTE AUTO 0.03 K/mm3 (0.00-0.05); IMMATURE GRAN PERCENT AUTO 0.3 % (0.0-0.4); LYMPHOCYTES ABSOLUTE AUTO 1.9 K/mm3 (1.0-4.8); LYMPHOCYTES PERCENT AUTO 21.2 % (24.0-44.0); MEAN CORPUSCULAR HEMOGLOBIN 28.2 pg (28.0-32.0); MEAN CORPUSCULAR HGB CONC 32.1 g/dl (32.0-36.0); MEAN CORPUSCULAR VOLUME 87.8 fl (83.0-99.0); MEAN PLATELET VOLUME 11.1 fl (9.4-12.4); MONOCYTES ABSOLUTE AUTO 0.8 K/mm3 (0.0-0.8); MONOCYTES PERCENT AUTO 8.4 % (0.0-8.0); NEUTROPHILS ABSOLUTE AUTO 5.9 K/mm3 (1.8-7.7); NEUTROPHILS PERCENT AUTO 65.7 % (41.0-71.0); PLATELET COUNT,PLT 149 K/mm3 (150-400); RED BLOOD CELL COUNT 3.37 M/mm3 (4.52-5.90); WHITE BLOOD CELL COUNT,WBC 8.92 K/mm3 (3.9-11.3)
[2024-08-12 04:55] LABS: A/G RATIO 0.5 (1-2); ALBUMIN 2.2 g/dl (3.4-5.0); BILIRUBIN TOTAL 0.8 mg/dL (0.2-1.0); BUN/CREATININE RATIO 22.2 (14-18); C-REACTIVE PROTEIN 3.88 mg/dL (<0.30); CALCIUM 9.3 mg/dL (8.5-10.1); CREATININE 0.9 mg/dL (0.7-1.3); EST CRCL DRUG DOSING (CG) 87.07 mL/min; MAGNESIUM 1.7 mg/dL (1.8-2.4); PROTEIN TOTAL,TP 6.3 g/dl (6.4-8.2)
[2024-08-12] MEDS: Potassium Chloride 20 MEQ Tab.ER PO SCH (08:52)
[2024-08-12] MEDS: Polyethylene Glycol 3350 Powder 17 GM Packet PO SCH (08:53)
[2024-08-12] MEDS: Magnesium Sulfate 2 GM/50 mL 2 GM in Premix Bag 1 BAG IV ONE (08:53)
[2024-08-12] MEDS: Metoprolol Succinate 25 MG Tab.ER PO SCH (09:07)
[2024-08-12 12:00] VITALS: BP 135/87
[2024-08-12 12:04] VITALS: PULSE 71
== END 2024-08-12 12:11 | DRG 871 ==
LOC: JD.ED 05:48 → INTOOBSV 07:08 → OBSVTOIN 07:08 → JD.ICU 07:08
PROVIDERS: ADMIT Student in an Organized Health Care Education/Training Program; ATTEND Family Medicine
PROC: 3E03329 Introduction of Other Anti-infective into Peripheral Vein, Percutaneous Approach (ICD-10-PCS; principal; 2024-08-09)
PROC: 5A09357 Assistance with Respiratory Ventilation, Less than 24 Consecutive Hours, Continuous Positive Airway Pressure (ICD-10-PCS; 2024-08-09)
PROC: 4A033R1 Measurement of Arterial Saturation, Peripheral, Percutaneous Approach (ICD-10-PCS; 2024-08-09)
DX: A41.9 Sepsis, unspecified organism (principal); J18.9 Pneumonia, unspecified organism; I50.9 Heart failure, unspecified; R09.02 Hypoxemia; J44.9 Chronic obstructive pulmonary disease, unspecified; R65.21 Severe sepsis with septic shock; J96.01 Acute respiratory failure with hypoxia; E03.9 Hypothyroidism, unspecified; D72.829 Elevated white blood cell count, unspecified; J44.0 Chronic obstructive pulmonary disease with (acute) lower respiratory infection; Z79.890 Hormone replacement therapy; I50.32 Chronic diastolic (congestive) heart failure; E87.3 Alkalosis; J44.1 Chronic obstructive pulmonary disease with (acute) exacerbation; R04.2 Hemoptysis; I48.91 Unspecified atrial fibrillation; H91.90 Unspecified hearing loss, unspecified ear; H54.7 Unspecified visual loss; I25.10 Atherosclerotic heart disease of native coronary artery without angina pectoris; E78.00 Pure hypercholesterolemia, unspecified; I11.0 Hypertensive heart disease with heart failure; G47.30 Sleep apnea, unspecified; K21.9 Gastro-esophageal reflux disease without esophagitis; N20.0 Calculus of kidney; R79.89 Other specified abnormal findings of blood chemistry; M54.9 Dorsalgia, unspecified; I27.20 Pulmonary hypertension, unspecified; G89.29 Other chronic pain; R13.10 Dysphagia, unspecified; I95.89 Other hypotension; E87.6 Hypokalemia; M19.90 Unspecified osteoarthritis, unspecified site; E83.42 Hypomagnesemia; E89.0 Postprocedural hypothyroidism; Z96.89 Presence of other specified functional implants; N40.1 Benign prostatic hyperplasia with lower urinary tract symptoms; R33.8 Other retention of urine; R00.1 Bradycardia, unspecified; M51.369 Other intervertebral disc degeneration, lumbar region without mention of lumbar back pain or lower extremity pain; M48.061 Spinal stenosis, lumbar region without neurogenic claudication; F41.9 Anxiety disorder, unspecified; E66.9 Obesity, unspecified; I25.2 Old myocardial infarction; Z68.30 Body mass index [BMI] 30.0-30.9, adult; Z85.850 Personal history of malignant neoplasm of thyroid; Z85.528 Personal history of other malignant neoplasm of kidney; Z86.16 Personal history of COVID-19; Z98.49 Cataract extraction status, unspecified eye; Z91.040 Latex allergy status; Z79.899 Other long term (current) drug therapy; Z79.01 Long term (current) use of anticoagulants; Z90.49 Acquired absence of other specified parts of digestive tract; Z98.890 Other specified postprocedural states; Z95.5 Presence of coronary angioplasty implant and graft; Z99.81 Dependence on supplemental oxygen
CPT/HCPCS: 0241U; 36415; 36600; 71045; 80053; 80202; 81001; 82803; 82947; 83605; 83735; 83880; 84100; 84439; 84443; 84484; 85025; 86140; 86738; 87040; 87070; 87086; 87205; 87641; 87899; 92610; 93005; 94640; 94660; 94664; 94667; 94668; 94761; 97110; 97116; 97162; 97167; 97530; 97535; 99285; 93010; A9270-GY; J0692; J1720; J1815; J2470; J2543; J3475; J7030; J7050

== ENCOUNTER 2024-10-03 14:29 | Inpatient (IN) | payer MEDICARE, BC ==
[2024-10-03 15:01] LABS: MEAN PLATELET VOLUME 11.0 fl (9.4-12.4); NRBC ABSOLUTE 0.00 (0.00-0.02); NRBC PERCENT 0.0 % (0.0-0.2); PLATELET COUNT,PLT 144 K/mm3 (150-400); RED BLOOD CELL COUNT 3.57 M/mm3 (4.52-5.90); WHITE BLOOD CELL COUNT,WBC 7.05 K/mm3 (3.9-11.3)
[2024-10-03] MEDS: methylPREDNISolone Sodium Succinate 125 MG/2 ML SDV IVPUSH ONE (15:07)
[2024-10-03] MEDS: Sodium Chloride 0.9% 10 ML Syringe FLUSH PRN (15:08)
[2024-10-03 15:20] LABS: BAND PERCENT MAN 0 % (0-10); BASOPHILS PERCENT MAN 1 (0.2-1.2); EOSINOPHILS PERCENT MAN 5 % (0.8-7.0); LYMPHOCYTES % ATYPICAL MANUAL 0 %; LYMPHOCYTES PERCENT MAN 11 % (20-40); MONOCYTES PERCENT MAN 3 % (2-10)
[2024-10-03 15:21] LABS: INR 1.09; PLATELET COUNT ESTIMATE DECREASED
[2024-10-03 15:26] LABS: A/G RATIO 0.6 (1-2); ALANINE AMINOTRANSFERASE,ALT 11.0 U/L (16-63); ASPARTATE AMNIOTRANSFERASE,AST 13.0 U/L (15-37); BILIRUBIN TOTAL 0.6 mg/dL (0.2-1.0); BLOOD UREA NITROGEN,BUN 16.0 mg/dL (7-18); CARBON DIOXIDE,CO2 26.0 mEq/L (21-32); CHLORIDE,CL 104.0 mEq/L (98-107); CREATININE 1.2 mg/dL (0.7-1.3); EST CRCL DRUG DOSING (CG) 65.3 mL/min; ESTIMATED GFR 63.0 mL/min (>60); GLUCOSE RANDOM 115.0 mg/dL (70-99); LACTIC ACID 0.9 mmol/L (0.4-2.0); POTASSIUM,K 4.4 mEq/L (3.5-5.1); PROTEIN TOTAL,TP 6.8 g/dl (6.4-8.2); SODIUM,NA 138.0 mEq/L (136-145); TROPONIN I HIGH SENSITIVITY 32.0 pg/mL (<=76)
[2024-10-04 04:30] LABS: BASOPHILS ABSOLUTE AUTO 0.0 K/mm3 (0.0-0.2); BASOPHILS PERCENT AUTO 0.1 % (0.0-1.0); EOSINOPHILS ABSOLUTE AUTO 0.0 K/mm3 (0.0-0.4); EOSINOPHILS PERCENT AUTO 0.0 % (0.0-6.0); IMMATURE GRAN ABSOLUTE AUTO 0.03 K/mm3 (0.00-0.05); IMMATURE GRAN PERCENT AUTO 0.4 % (0.0-0.4); LYMPHOCYTES ABSOLUTE AUTO 1.1 K/mm3 (1.0-4.8); LYMPHOCYTES PERCENT AUTO 12.9 % (24.0-44.0); MEAN PLATELET VOLUME 11.1 fl (9.4-12.4); MONOCYTES ABSOLUTE AUTO 0.1 K/mm3 (0.0-0.8); MONOCYTES PERCENT AUTO 1.2 % (0.0-8.0); NEUTROPHILS ABSOLUTE AUTO 7.1 K/mm3 (1.8-7.7); NEUTROPHILS PERCENT AUTO 85.4 % (41.0-71.0); NRBC ABSOLUTE 0.00 (0.00-0.02); NRBC PERCENT 0.0 % (0.0-0.2); PLATELET COUNT,PLT 170 K/mm3 (150-400); RED BLOOD CELL COUNT 4.15 M/mm3 (4.52-5.90); WHITE BLOOD CELL COUNT,WBC 8.29 K/mm3 (3.9-11.3)
[2024-10-04 04:54] LABS: A/G RATIO 0.5 (1-2); ALANINE AMINOTRANSFERASE,ALT 9.0 U/L (16-63); ASPARTATE AMNIOTRANSFERASE,AST 10.0 U/L (15-37); BILIRUBIN TOTAL 0.5 mg/dL (0.2-1.0); BLOOD UREA NITROGEN,BUN 16.0 mg/dL (7-18); CARBON DIOXIDE,CO2 25.0 mEq/L (21-32); CHLORIDE,CL 103.0 mEq/L (98-107); CREATININE 1.3 mg/dL (0.7-1.3); EST CRCL DRUG DOSING (CG) 60.28 mL/min; ESTIMATED GFR 57.0 mL/min (>60); GLUCOSE RANDOM 198.0 mg/dL (70-99); POTASSIUM,K 3.7 mEq/L (3.5-5.1); PROTEIN TOTAL,TP 7.7 g/dl (6.4-8.2); SODIUM,NA 138.0 mEq/L (136-145)
[2024-10-04] MEDS ORDERED: Non-Formulary Medication 1 Each (Pregabalin 150 MG Capsule) PO SCH (21:00)
[2024-10-04] MEDS: Sennosides/Docusate Sodium 50-8.6 MG Tab PO SCH (21:24)
[2024-10-04] MEDS: SALMETEROL PO SCH (22:19)
[2024-10-04] MEDS: FLUTICASONE PROPION PO SCH (22:19)
[2024-10-05 04:07] LABS: BASOPHILS ABSOLUTE AUTO 0.0 K/mm3 (0.0-0.2); BASOPHILS PERCENT AUTO 0.5 % (0.0-1.0); EOSINOPHILS ABSOLUTE AUTO 0.1 K/mm3 (0.0-0.4); EOSINOPHILS PERCENT AUTO 0.8 % (0.0-6.0); IMMATURE GRAN ABSOLUTE AUTO 0.04 K/mm3 (0.00-0.05); IMMATURE GRAN PERCENT AUTO 0.5 % (0.0-0.4); LYMPHOCYTES ABSOLUTE AUTO 1.8 K/mm3 (1.0-4.8); LYMPHOCYTES PERCENT AUTO 23.2 % (24.0-44.0); MEAN PLATELET VOLUME 11.4 fl (9.4-12.4); MONOCYTES ABSOLUTE AUTO 0.6 K/mm3 (0.0-0.8); MONOCYTES PERCENT AUTO 8.1 % (0.0-8.0); NEUTROPHILS ABSOLUTE AUTO 5.0 K/mm3 (1.8-7.7); NEUTROPHILS PERCENT AUTO 66.9 % (41.0-71.0); NRBC ABSOLUTE 0.00 (0.00-0.02); NRBC PERCENT 0.0 % (0.0-0.2); PLATELET COUNT,PLT 164 K/mm3 (150-400); RED BLOOD CELL COUNT 3.71 M/mm3 (4.52-5.90); WHITE BLOOD CELL COUNT,WBC 7.54 K/mm3 (3.9-11.3)
[2024-10-05 04:31] LABS: A/G RATIO 0.6 (1-2); ALANINE AMINOTRANSFERASE,ALT 11.0 U/L (16-63); ASPARTATE AMNIOTRANSFERASE,AST 11.0 U/L (15-37); BILIRUBIN TOTAL 0.4 mg/dL (0.2-1.0); BLOOD UREA NITROGEN,BUN 19.0 mg/dL (7-18); CARBON DIOXIDE,CO2 29.0 mEq/L (21-32); CHLORIDE,CL 103.0 mEq/L (98-107); CREATININE 1.1 mg/dL (0.7-1.3); EST CRCL DRUG DOSING (CG) 71.24 mL/min; ESTIMATED GFR 70.0 mL/min (>60); GLUCOSE RANDOM 107.0 mg/dL (70-99); POTASSIUM,K 3.5 mEq/L (3.5-5.1); PROTEIN TOTAL,TP 6.7 g/dl (6.4-8.2); SODIUM,NA 137.0 mEq/L (136-145)
[2024-10-05] MEDS: INCRUSE 62.5 MCG PO SCH (08:21)
[2024-10-05 13:36] VITALS: BP 168/90; PULSE 81
== END 2024-10-05 13:38 | disposition home health service (06) | DRG 313 ==
LOC: JD.ED 14:29 → JD.MS 16:55
PROVIDERS: ADMIT Family Medicine; ATTEND Family Medicine
DX: J18.9 Pneumonia, unspecified organism (principal); R09.02 Hypoxemia; I11.0 Hypertensive heart disease with heart failure; I50.9 Heart failure, unspecified; K21.9 Gastro-esophageal reflux disease without esophagitis; E78.00 Pure hypercholesterolemia, unspecified; E66.9 Obesity, unspecified; Z91.040 Latex allergy status; Z79.890 Hormone replacement therapy; Z79.899 Other long term (current) drug therapy; Z90.49 Acquired absence of other specified parts of digestive tract; Z86.16 Personal history of COVID-19; Z68.34 Body mass index [BMI] 34.0-34.9, adult; R07.9 Chest pain, unspecified
CPT/HCPCS: 36415; 71045; 80053; 83605; 84484; 85007; 85027; 85610; 86140; 87040 ×2; 93005; 94640; 96374; 99285; A9270 ×2; J2919; 85025; 93010; 94660; 94761; 96375; 97110-GP; 97116-GP; 97161-GP; 97530-GP; J0696; J2543; J3490; J7512